=== PATIENT | female | born 1955 | race Caucasian/White ===

== ENCOUNTER 2016-03-26 01:34 | Inpatient (IN) ==
[2016-03-26] MEDS ORDERED: Pantoprazole 40 MG VIAL IVP STA (04:21)
[2016-03-26] MEDS ORDERED: Acetaminophen 325 MG TABLET PO PRN (04:21)
[2016-03-26] MEDS ORDERED: *HR* Morphine 2 MG/ML SYRINGE IVP PRN (04:21)
[2016-03-26] MEDS ORDERED: Naloxone 0.4 MG/ML INJ IVP PRN (04:21)
[2016-03-26] MEDS ORDERED: Ondansetron 4 MG/2 ML VIAL IVP PRN (04:21)
[2016-03-26] MEDS ORDERED: *HR* OxyCODONE Immed Rel 5 MG TABLET PO PRN (04:21)
[2016-03-26] MEDS ORDERED: *HR* Dextrose 50 % in Water (Syg) 50 ML SYRINGE IVP PRN ×2 (04:30→16:40)
[2016-03-26] MEDS ORDERED: Dextrose Gel 15 GM PO PRN ×4 (04:30→16:40)
[2016-03-26] MEDS ORDERED: methylPREDNISolone 125 MG/2 ML VIAL IVP STA (04:30)
[2016-03-26] MEDS ORDERED: D5% in Water 1,000 ML IV PRN ×2 (04:30→16:40)
[2016-03-26] MEDS ORDERED: Albuterol 2.5 MG/3 ML NEBULIZER IH PRN (04:30)
[2016-03-26] MEDS ORDERED: Benzonatate 100 MG CAPSULE PO PRN (04:35)
[2016-03-26] MEDS ORDERED: Nitroglycerin 0.4 MG TAB.SUBL SL PRN (04:37)
[2016-03-26] MEDS ORDERED: *HR* Metoprolol 5 MG/5 ML VIAL IVP PRN (04:37)
[2016-03-26] MEDS ORDERED: Azithromycin 250 MG TABLET PO SCH (04:45)
[2016-03-26 05:28] LABS: VBG HCO3 23.6 mEq/L (21-27); VBG PH 7.29 pH Units (7.32-7.42)
[2016-03-26 05:32] LABS: Basophils % 0.1 %; Immature Granulocytes % 0.5 % (0-4); Lymphocytes # 1.6 K/mcL (0.6-4.6); Lymphocytes % 13.1 %; Mean Corpuscular HGB Conc 31.4 g/dL (31.6-35.5); Mean Corpuscular Hemoglobin 26.6 pg (28.0-33.3); Mean Corpuscular Volume 84.7 fL (83.0-100.0); Mean Platelet Volume 9.8 fL (9.4-12.4); Monocytes # 0.7 K/mcL (0.0-1.3); Monocytes % 5.5 %; Neutrophils # 10.1 K/mcL (1.6-8.9); Platelet Count 403 K/mcL (140-400); Red Blood Count 4.13 M/mcL (3.82-4.97); Red Cell Distribution Width 15.9 % (11.5-14.5); Segmented Neutrophils % 80.8 %
[2016-03-26 05:39] LABS: Hemoglobin A1C 8.1 %
[2016-03-26 05:43] LABS: Albumin 3.1 g/dL (3.5-5.0); Albumin/Globulin Ratio 0.8 (1.1-2.2); Bilirubin,Total 0.3 mg/dL (0.2-1.2); Calcium 10.1 mg/dL (8.6-10.8); Globulin 4.1 g/dL (2.4-3.5); Magnesium 1.5 mg/dL (1.6-2.6); Phosphorous 2.8 mg/dL (2.3-4.7); Potassium 4.3 mEq/L (3.5-4.5); Total Protein 7.2 g/dL (6.0-8.3)
[2016-03-26] MEDS: Ipratropium/Albuterol Neb 3 ML IH SCH ×4 (05:47→23:08)
--- NOTE | 2016-03-26 05:47 | Internal Med History&Physical ---
<Ana Gordillo - Last Filed: 03/26/16 06:43> Date of Encounter: 03/26/16 Time of Encounter: 04:30 Assessment and Plan (1) Sepsis Current visit: Yes Status: Acute WBC 12.7, Left shift, Tachypnea, ESR 88 CXR with RUL opacity, no PTX or Pleural effusion, cardiac and mediastinal contours stable Multiorgan involvement, including cardiac demand ischemia (troponin 0.06, 0.09) and VALERY (Cr 3.97 up from 1.65 on 03/20/16) Blood cultures x 2, pending Sputum culture, pending Trend CBC, CMP, PT/INR, aPTT, Lactate Will treat PNA, follow heart and kidney function Qualifiers: Sepsis type: sepsis due to unspecified organism Qualified Code(s): A41.9 - Sepsis, unspecified organism (2) Pneumonia Current visit: No Status: Acute WBC 12.7, Left shift, Tachypnea, ESR 88 CXR with RUL opacity, no PTX or Pleural effusion, cardiac and mediastinal contours stable Levoquin 1g given in ED, will continue Levoquin 750mg IV q 48 h Start Ceftriaxone 1g q 24 h Prednisone po 40mg q 24 h Duonebs QIDR, Albuterol Q4PRN Blood culture, pending Sputum culture, pending Will follow CBC Recommend repeat CXR for resolution of disease process Qualifiers: Pneumonia type: due to unspecified organism Laterality: right Lung location: upper lobe of lung Qualified Code(s): J18.1 - Lobar pneumonia, unspecified organism (3) Demand ischemia Current visit: Yes Status: Acute EKG with anteriolateral wall ischemia, no ST segment elevation Repeat EKG in am Troponin 0.06, 0.09, trend troponin BNP 264, will trend -CXR without evidence of effusion Provide O2 support, reassess heart function Echo, pending Cardiology consult (4) VALERY (acute kidney injury) Current visit: Yes Status: Acute Cr 3.97 increased from 1.65 on 03/20/16 (5 days ago) Uric acid 6.8, will trend Trend renal function US Retroperitoneum, pending UA reflex culture to r/o infectious etiology, pending Microal/Cr r/o chronic kidney disease, pending Will hydrate IVF 50mL/hr and reassess (5) Diabetes mellitus type 2, uncontrolled Current visit: Yes Status: Acute Insulin protocol Microal/Cr, pending Discontinued Gabapentin due to low CrCl Qualifiers: Diabetes mellitus complication status: with neurologic complications Diabetes mellitus complication detail: with unspecified neuropathy Diabetes mellitus correction insulin use: with exterminator helper use Qualified Code(s): E11.40 - Type 2 diabetes mellitus with diabetic neuropathy, unspecified; E11.65 - Type 2 diabetes mellitus with hyperglycemia; Z79.4 - termination clerk (current) use of insulin (6) Coronary artery disease Current visit: Yes Status: Acute Crestor decreased to 10mg q day due to low CrCl Continue home medications Qualifiers: Coronary Disease-Associated Artery/Lesion type: bypass graft [place] vs. transplanted heart: [place] heart Associated angina: without angina Qualified Code(s): I25.810 - Atherosclerosis of coronary artery bypass graft(s) without angina pectoris (7) Hyperlipidemia Current visit: Yes Status: Acute Crestor decreased to 10mg q day due to low CrCl Discontinued fenofibrate due to low CrCl Qualifiers: Hyperlipidemia type: unspecified Qualified Code(s): E78.5 - Hyperlipidemia , unspecified (8) Hypertension Current visit: Yes Status: Acute Continue metoprolol Qualifiers: Hypertension type: essential hypertension Qualified Code(s): I10 - Essential (primary) hypertension (9) History of [place] (myocardial infarction) Current visit: Yes Status: Acute (10) Rheumatoid arthritis Current visit: Yes Status: Acute Qualifiers: Rheumatoid arthritis location: unspecified site Rheumatoid factor presence : unspecified presence Qualified Code(s): M06.9 - Rheumatoid arthritis, unspecified (11) Hypothyroid Current visit: Yes Status: Acute continue home medication Qualifiers: Hypothyroidism type: unspecified Qualified Code(s): E03.9 - Hypothyroidism , unspecified (12) DVT prophylaxis Current visit: Yes Status: Acute Lovenox 40u SubQ Internal Medicine - H&P: HPI Chief complaint: dyspnea Admitted From: Emergency Dept Plans for Post Hospital Care: Home History of present illness: Ms. Graham is a 60 year old female who presented to the hospital with acute onset dyspnea. Patient states that around 6 PM (03/25) she became very short of breath. Patient was resting that time. Patient states dyspnea continued to worsen. She began coughing. Admits hemoptysis, pain with inspiration, right sided non-radiating back pain. Admits to being frightened. Denies chest pain. Denies use of home O2. Denies headache, dizziness, fever, chills. Past Med Surg Social Fam HX - Past Medical History Medical history: coronary artery disease, diabetes, GERD, hypertension, myocardial infarction, RA, thyroid disease, TIA, other (Aortic stenosis, per patient) Psychiatric history: no psych history - Past Surgical History Surgical History: angioplasty/stent, coronary bypass (CABG), hysterectomy, thyroidectomy - Social History Smoking Status: Current every day smoker Smokeless Tobacco Status: No Alcohol use: none Drug use: marijuana - Family History Mother History Unknown: Yes Adopted: [place]: Remedios Montero Family Member Ethnicity: Non- Living Status: Age at : 40 Hx Family Cardiac Disorders: Yes ( of [place]) Hx Family Respiratory Disorders: No Hx Family Cancer: Yes (breast ca) Hx Family GI Disorders: No Hx Family Genitourinary Disorders: No Hx Family Endocrine Disorder: No Hx Family Musculoskeletal Disorders: No Hx Family Neuromuscular Disorders: No Hx Family Neurologic Disorders: No Hx Family HEENT Disorders: No Hx Family Autoimmune Disorders: No Hx Family Reproductive Disorders: No Hx Family Psychosocial Disorders: No Hx Family Medical Disorders: No Internal Medicine - H&P: Meds Amlodipine [Norvasc] 10 mg PO DAILY 06/10/15 [History] Clopidogrel [Plavix] 75 mg PO DAILY 06/10/15 [History] Cyclobenzaprine [Flexeril] 10 mg PO TID 06/10/15 [History] Gabapentin [Neurontin] 300 mg PO TID 06/10/15 [History] Insulin ASPART [NovoLOG] 21 unit SQ TIDWM 06/10/15 [History] Insulin Glargine [Lantus] 70 unit SQ HS 06/10/15 [History] Isosorbide DInitrate [Isosorbide Dinitrate] 30 mg PO DAILY 06/10/15 [History] Lisinopril [Zestril] 10 mg PO DAILY 06/10/15 [History] Metoprolol [Lopressor] 100 mg PO BID 06/10/15 [History] Rosuvastatin [Crestor] 40 mg PO DAILY 06/10/15 [History] TraMADol [Ultram] 50 mg PO TID 06/10/15 [History] Hydrochlorothiazide 25 mg PO DAILY 02/01/16 [History] Levothyroxine Sodium [Levoxyl] 125 mcg PO DAILY 02/01/16 [History] Metformin [Glucophage] 1,000 mg PO BID 02/01/16 [History] BuPROPion [Wellbutrin] 100 mg PO BID 03/20/16 [History] Fenofibrate 54 mg PO DAILY 03/20/16 [History] Meloxicam [Mobic] 7.5 mg PO DAILY #10 tablet 03/20/16 [Rx] Hydralazine HCl 100 mg PO BID 03/26/16 [History] Omeprazole [PriLOSEC] 20 mg PO DAILY 03/26/16 [History] PredniSONE [Deltasone] 20 mg PO DAILY 03/26/16 [History] Allergies Penicillins [PCN] Allergy (Verified 03/19/16 21:38) Hives All Systems PM: A 10-system review of systems was performed and is negative for pertinent findings except as documented above in the HPI. - Constitutional Constitutional: other (increased appetite (she states this is due to medication) ), no chills, no fever(s), no weight loss - Cardiovascular Cardiovascular ROS IM: dyspnea, dyspnea on exertion, other, no chest pain, no edema - Respiratory Respiratory: cough, dyspnea, hemoptysis, dyspnea on exertion, wheezing, pain on inspiration - Gastrointestinal Gastrointestinal: hematochezia (history of GI bleed requiring transfusion, not recent), melena (history of GI bleed requiring transfusion, not recent), no abdominal pain, no constipation, no diarrhea, no heartburn, no nausea, no vomiting - Constitutional Vitals: Temp Pulse Resp BP Pulse Ox 98.3 F 89 17 186/76 94 L 03/26/16 03:16 03/26/16 03:16 03/26/16 03:16 03/26/16 03:16 03/26/16 03:16 General appearance: Present: mild distress, A&O X 3, pleasant, obese - Head Head exam: Present: atraumatic, normal inspection, normocephalic - Eye Eye exam: Present: EOMI - Neck Neck exam general surgery: Present: full ROM, normal inspection - Respiratory Respiratory exam: Present: accessory muscle use, rhonchi, wheezes, tachypnea - Cardiovascular Cardiovascular exam: Present: +S1, +S2, tachycardia - GI/Abdominal GI/Abdominal exam: Present: normal bowel sounds, soft Internal Med - H&P Results - Labs CBC & Chem 7: 03/26/16 05:17 03/26/16 05:17 Labs: Short CBC 03/26/16 Range/Units 05:17 WBC 12.5 H (4.3-11.1) K/mcL Hgb 11.0 L (11.5-15.4) g/dL Hct 35.0 L (35.3-44.9) % Plt Count 403 H (140-400) K/mcL BMP 03/26/16 05:17 Sodium 136 Potassium 4.3 Chloride 105 Carbon Dioxide 19 BUN 83 H Creatinine 3.08 H Glucose 157 H Calcium 10.1 Liver Function 03/26/16 Range/Units 05:17 Total Bilirubin 0.3 (0.2-1.2) mg/dL AST 14 (5-34) Units/L ALT 14 (0-55) Units/L Alkaline Phosphatase 70 (38-126) Units/L Albumin 3.1 L (3.5-5.0) g/dL - ABG Interpretation ABG results: 03/26/16 05:17 VBG pH 7.29 L VBG pCO2 49 VBG pO2 58 H VBG HCO3 23.6 - Attending Attestation I examined this patient and my medical decision-making was reviewed with the FLIGHT CREW TIME CLERK/PA/Advanced Practice Nurse/Resident Physician. I agree with the documented findings, disposition and treatment plan as described except to the extent set forth below. <Delta Mansfield - Last Filed: 03/29/16 03:37> Date of Encounter: 03/26/16 Internal Medicine - H&P: HPI History of present illness: Ms. Graham is a 60 year old female The patient was visited and interviewed. I examined this patient. My medical decision-making was reviewed with the Resident Physician. I agree with the documented findings, disposition and treatment plan as described except to the extent set forth below. Cumulative laboratory and radiographic data was reviewed and considered and discussed. Pertinent ancillary medical records including ECW and PCI documentation, when available was reviewed and considered. Given the patient's presenting concerns, past medical history, clinical findings and symptoms, she is admitted at this time to undergo further evaluation and disposition. Orders were written as per the computerized physician money order clerk system.................... All Systems PM: A 10-system review of systems was performed and is negative for pertinent findings except as documented above in the HPI. - Constitutional Vitals: Temp Pulse Resp BP Pulse Ox 98.0 F 80 17 179/75 95 03/29/16 00:06 03/29/16 00:06 03/29/16 00:06 03/29/16 00:06 03/29/16 00:06 Internal Med - H&P Results - Labs CBC & Chem 7: 03/28/16 05:08 03/28/16 05:08 Labs: Short CBC 03/28/16 Range/Units 05:08 WBC 15.1 H (4.3-11.1) K/mcL Hgb 9.5 L (11.5-15.4) g/dL Hct 30.2 L (35.3-44.9) % Plt Count 377 (140-400) K/mcL Neutrophils # 11.2 H (1.6-8.9) K/mcL BMP 03/28/16 05:08 Sodium 138 Potassium 4.2 Chloride 106 Carbon Dioxide 21 BUN 48 H D Creatinine 1.29 H Glucose 225 H Calcium 9.9 - ABG Interpretation ABG results: 03/26/16 05:17 VBG pH 7.29 L VBG pCO2 49 VBG pO2 58 H VBG HCO3 23.6 - Impressions Vital Signs Temp Pulse Resp BP Pulse Ox 03/29/16 00:06 98.0 F 80 17 179/75 95 03/28/16 22:55 16 96 03/28/16 19:54 97.9 F 77 18 183/66 96 03/28/16 17:58 81 187/70 03/28/16 15:48 98.4 F 80 18 193/72 92 L 03/28/16 12:11 18 96 03/28/16 11:47 98.5 F 85 18 151/101 96 03/28/16 10:47 95 03/28/16 08:29 96 03/28/16 07:42 97.7 F 78 18 195/75 96 03/28/16 04:44 17 94 L 03/28/16 04:25 98.3 F 86 18 186/79 95 Intake and Output 03/28/16 03/28/16 03/29/16 15:59 23:59 07:59 Intake Total 0 / 0 Output Total 1800 / 1800 Balance -1800 / -1800 Intake: Oral 0 / 0 Output: Urine 1800 / 1800 Other: Blood Glucose* 331 363 Short CBC 03/28/16 Range/Units 05:08 WBC 15.1 H (4.3-11.1) K/mcL Hgb 9.5 L (11.5-15.4) g/dL Hct 30.2 L (35.3-44.9) % Plt Count 377 (140-400) K/mcL Neutrophils # 11.2 H (1.6-8.9) K/mcL BMP 03/28/16 Range/Units 05:08 Sodium 138 (136-145) mEq/L Potassium 4.2 (3.5-4.5) mEq/L Chloride 106 (98-109) mEq/L Carbon Dioxide 21 (19-29) mEq/L BUN 48 H D (7-20) mg/dL Creatinine 1.29 H (0.57-1.11) mg/dL Glucose 225 H (70-99) mg/dL Calcium 9.9 (8.6-10.8) mg/dL Abnormal lab results WBC 15.1 K/mcL (4.3-11.1) H 03/28/16 05:08 RBC 3.59 M/mcL (3.82-4.97) L 03/28/16 05:08 Hgb 9.5 g/dL (11.5-15.4) L 03/28/16 05:08 Hct 30.2 % (35.3-44.9) L 03/28/16 05:08 MCH 26.5 pg (28.0-33.3) L 03/28/16 05:08 MCHC 31.5 g/dL (31.6-35.5) L 03/28/16 05:08 RDW 15.7 % (11.5-14.5) H 03/28/16 05:08 Band Neutrophils % 6.0 % (0-4) H 03/27/16 04:00 Neutrophils # 11.2 K/mcL (1.6-8.9) H 03/28/16 05:08 Nucleated RBCs/100 WBC 0.1 /100 WBC (0) H 03/28/16 05:08 PT 12.7 Seconds (9.4-12.1) H 03/27/16 04:00 APTT 25.8 Seconds (26.0-36.0) L 03/27/16 04:00 VBG pH 7.29 pH Units (7.32-7.42) L 03/26/16 05:17 VBG pO2 58 mmHg (25-40) H 03/26/16 05:17 BUN 48 mg/dL (7-20) H D 03/28/16 05:08 Creatinine 1.29 mg/dL (0.57-1.11) H 03/28/16 05:08 Est GFR ( Amer) 51 (> 60) L 03/28/16 05:08 Est GFR (Non-Af Amer) 42 (> 60) L 03/28/16 05:08 BUN/Creatinine Ratio 37 (6-26) H 03/28/16 05:08 Glucose 225 mg/dL (70-99) H 03/28/16 05:08 POC Glucose 363 (58-89) H 03/28/16 19:59 Hemoglobin A1c 8.1 % (-5.6) H 03/26/16 05:17 Calculated Osmolality 306 (280-300) H 03/28/16 05:08 Magnesium 1.5 mg/dL (1.6-2.6) L 03/26/16 05:17 B-Natriuretic Peptide 652 pg/mL (0-100) H 03/27/16 04:00 Albumin 3.1 g/dL (3.5-5.0) L 03/26/16 05:17 Globulin 4.1 g/dL (2.4-3.5) H 03/26/16 05:17 Albumin/Globulin Ratio 0.8 (1.1-2.2) L 03/26/16 05:17 HDL Cholesterol 22 mg/dL (40-59) L 03/27/16 04:00 Urine Glucose (UA) >=1000 mg/dL (Normal) H 03/26/16 16:59 Laboratory Results WBC 15.1 K/mcL (4.3-11.1) H 03/28/16 05:08 RBC 3.59 M/mcL (3.82-4.97) L 03/28/16 05:08 Hgb 9.5 g/dL (11.5-15.4) L 03/28/16 05:08 Hct 30.2 % (35.3-44.9) L 03/28/16 05:08 MCV 84.1 fL (83.0-100.0) 03/28/16 05:08 MCH 26.5 pg (28.0-33.3) L 03/28/16 05:08 MCHC 31.5 g/dL (31.6-35.5) L 03/28/16 05:08 RDW 15.7 % (11.5-14.5) H 03/28/16 05:08 Plt Count 377 K/mcL (140-400) 03/28/16 05:08 MPV 9.5 fL (9.4-12.4) 03/28/16 05:08 Immature Gran % 0.5 % (0-4) 03/26/16 05:17 Seg Neutrophils % 74.0 % 03/28/16 05:08 Band Neutrophils % 6.0 % (0-4) H 03/27/16 04:00 Lymphocytes % 20.0 % 03/28/16 05:08 Monocytes % 6.0 % 03/28/16 05:08 Eosinophils % 0.0 % 03/26/16 05:17 Basophils % 0.1 % 03/26/16 05:17 Neutrophils # 11.2 K/mcL (1.6-8.9) H 03/28/16 05:08 Lymphocytes # 3.0 K/mcL (0.6-4.6) 03/28/16 05:08 Monocytes # 0.9 K/mcL (0.0-1.3) 03/28/16 05:08 Eosinophils # 0.0 K/mcL (0.0-0.6) 03/26/16 05:17 Basophils # 0.0 K/mcL (0.0-0.2) 03/26/16 05:17 Nucleated RBCs/100 WBC 0.1 /100 WBC (0) H 03/28/16 05:08 Platelet Estimate Normal (Normal) 03/28/16 05:08 PT 12.7 Seconds (9.4-12.1) H 03/27/16 04:00 INR 1.2 03/27/16 04:00 APTT 25.8 Seconds (26.0-36.0) L 03/27/16 04:00 VBG pH 7.29 pH Units (7.32-7.42) L 03/26/16 05:17 VBG pCO2 49 mmHg (41-51) 03/26/16 05:17 VBG pO2 58 mmHg (25-40) H 03/26/16 05:17 VBG HCO3 23.6 mEq/L (21-27) 03/26/16 05:17 Sodium 138 mEq/L (136-145) 03/28/16 05:08 Potassium 4.2 mEq/L (3.5-4.5) 03/28/16 05:08 Chloride 106 mEq/L (98-109) 03/28/16 05:08 Carbon Dioxide 21 mEq/L (19-29) 03/28/16 05:08 BUN 48 mg/dL (7-20) H D 03/28/16 05:08 Creatinine 1.29 mg/dL (0.57-1.11) H 03/28/16 05:08 Est GFR ( Amer) 51 (> 60) L 03/28/16 05:08 Est GFR (Non-Af Amer) 42 (> 60) L 03/28/16 05:08 BUN/Creatinine Ratio 37 (6-26) H 03/28/16 05:08 Glucose 225 mg/dL (70-99) H 03/28/16 05:08 POC Glucose 363 (58-89) H 03/28/16 19:59 Est Mean Plasma Glucose 186 mg/dl 03/26/16 05:17 Hemoglobin A1c 8.1 % (-5.6) H 03/26/16 05:17 Calculated Osmolality 306 (280-300) H 03/28/16 05:08 Lactic Acid 1.4 mmol/L (0.5-2.2) 03/26/16 06:05 Uric Acid 6.0 mg/dL (2.6-6.0) 03/27/16 04:00 Calcium 9.9 mg/dL (8.6-10.8) 03/28/16 05:08 Phosphorus 2.8 mg/dL (2.3-4.7) 03/26/16 05:17 Magnesium 1.5 mg/dL (1.6-2.6) L 03/26/16 05:17 Total Bilirubin 0.3 mg/dL (0.2-1.2) 03/26/16 05:17 AST 14 Units/L (5-34) 03/26/16 05:17 ALT 14 Units/L (0-55) 03/26/16 05:17 Alkaline Phosphatase 70 Units/L (38-126) 03/26/16 05:17 Troponin I 0.03 ng/mL (0-0.03) 03/26/16 17:36 B-Natriuretic Peptide 652 pg/mL (0-100) H 03/27/16 04:00 Serum Total Protein 7.2 g/dL (6.0-8.3) 03/26/16 05:17 Albumin 3.1 g/dL (3.5-5.0) L 03/26/16 05:17 Globulin 4.1 g/dL (2.4-3.5) H 03/26/16 05:17 Albumin/Globulin Ratio 0.8 (1.1-2.2) L 03/26/16 05:17 Triglycerides 133 mg/dL (< 150) 03/27/16 04:00 Cholesterol 99 mg/dL (< 200) 03/27/16 04:00 LDL Cholesterol, Calc 50 mg/dL (0-99) 03/27/16 04:00 VLDL Cholesterol, Calc 27 mg/dL (< 31) 03/27/16 04:00 HDL Cholesterol 22 mg/dL (40-59) L 03/27/16 04:00 Cholesterol/HDL Ratio 4.5 (0-4.9) 03/27/16 04:00 TSH 1.045 mcIU/mL (0.350-4.840) 03/26/16 05:17 Urine Color Yellow (Yellow) 03/26/16 16:59 Urine Clarity Clear (Clear) 03/26/16 16:59 Urine pH 5.5 pH Units (5.0-8.0) 03/26/16 16:59 Ur Specific [place] 1.021 (1.010-1.025) 03/26/16 16:59 Urine Protein Negative mg/dL (Neg-Trace) 03/26/16 16:59 Urine Glucose (UA) >=1000 mg/dL (Normal) H 03/26/16 16:59 Urine Ketones Negative mg/dL (Negative) 03/26/16 16:59 Urine Blood Negative (Negative) 03/26/16 16:59 Urine Nitrite Negative (Negative) 03/26/16 16:59 Urine Bilirubin Negative (Negative) 03/26/16 16:59 Urine Urobilinogen Normal mg/dL (Normal) 03/26/16 16:59 Ur Leukocyte Esterase Negative (Negative) 03/26/16 16:59 Urine Creatinine 46 mg/dL 03/26/16 16:59 Urine Microalbumin 11 mg/L 03/26/16 16:59 Microalb/Creat Ratio 24 (0-30) 03/26/16 16:59 Specimen Rejected Hemolyzed 03/26/16 05:17 Blood Type O NEGATIVE 03/26/16 05:17 Antibody Screen NEGATIVE 03/26/16 05:17 - Attending Attestation My signature below is to certify that this patient is under my care and that I, or the Resident Physician working with me, has had a [id number] encounter with this patient. Plan of care has been reviewed and discussed in detail with the patient. Questions addressed. Advance directive discussion briefly addressed. Patient does not declare any healthcare restrictions at this time. Outpatient medication schedules will be reviewed, confirmed and facilitated as appropriate. Reconciliation of home treatments including adjustments, substitutions and reintroduction into the treatment regimen will address necessary maintenance therapies for chronic pre-existing medical conditions. Hospital course will be dependent upon clinical findings, treatment response and potential consultative interventions. The patient is at risk for further acute clinical decline and mobility given her presenting to complaint, clinical findings and associated comorbidities. Condition is serious. Prognosis is cautiously optimistic. CODE STATUS is full
[2016-03-26 05:59] LABS: Platelet Estimate Normal (Normal)
[2016-03-26] MEDS ORDERED: *HR* Enoxaparin 40 MG/0.4 ML SYRINGE SQ SCH (06:00)
[2016-03-26 06:11] LABS: Thyroid Stimulating Hormone 1.045 mcIU/mL (0.350-4.840)
[2016-03-26] MEDS: 0.9 % Sodium Chloride 1,000 ML IVC SCH (06:15)
[2016-03-26] MEDS ORDERED: Magnesium Sulfate 1 GM in D5% in Water 100 ML IVPB ONE (06:16)
--- NOTE | 2016-03-26 08:17 | Internal Med Progress Note ---
Date of Encounter: 03/26/16 Time of Encounter: 08:14 - Assessment and plan (1) Severe sepsis Current Visit: Yes Status: Acute Assessment and plan: Patient is noted to have pneumonia with acute kidney injury and elevated serum troponin. Continue IV hydration along with IV antibiotics and monitor renal function closely. Supportive care. Serum lactate noted to be within normal limits. Monitor urine output closely. (2) VALERY (acute kidney injury) Current Visit: Yes Status: Acute Assessment and plan: Does not carry a known diagnosis of chronic kidney disease. Serum creatinine noted to be normal until earlier this month when it was 1.65. Noted to be trending down today. Continue IV hydration, avoid new nephrotoxic agents and dose antibiotics according to current GFR. (3) Coronary artery disease Current Visit: Yes Status: Chronic Assessment and plan: Status post coronary artery bypass graft. Continue aspirin, Plavix, beta dimple, MIKE inhibitor and statin. Outpatient cardiology follow-up recommended. Qualifiers: Coronary Disease-Associated Artery/Lesion type: bypass graft [place] vs. transplanted heart: [place] heart Associated angina: without angina Qualified Code(s): I25.810 - Atherosclerosis of coronary artery bypass graft(s) without angina pectoris (4) Diabetes mellitus type 2, uncontrolled Current Visit: Yes Status: Chronic Assessment and plan: Continue Accu-Chek blood glucose monitoring with sliding scale insulin. Hemoglobin A1c noted to be 8.1%. Diabetic diet. Qualifiers: Diabetes mellitus complication status: with neurologic complications Diabetes mellitus complication detail: with unspecified neuropathy Diabetes mellitus chcf insulin use: with chcf use Qualified Code(s): E11.40 - Type 2 diabetes mellitus with diabetic neuropathy, unspecified; E11.65 - Type 2 diabetes mellitus with hyperglycemia; Z79.4 - exterminator helper (current) use of insulin (5) Hyperlipidemia Current Visit: Yes Status: Chronic Qualifiers: Hyperlipidemia type: unspecified Qualified Code(s): E78.5 - Hyperlipidemia , unspecified (6) Hypertension Current Visit: Yes Status: Chronic Qualifiers: Hypertension type: essential hypertension Qualified Code(s): I10 - Essential (primary) hypertension (7) Hypothyroid Current Visit: Yes Status: Chronic Assessment and plan: Resume levothyroxine. Qualifiers: Hypothyroidism type: acquired Qualified Code(s): E03.9 - Hypothyroidism, unspecified (8) Rheumatoid arthritis Current Visit: Yes Status: Chronic Qualifiers: Rheumatoid arthritis location: unspecified site Rheumatoid factor presence : unspecified presence Qualified Code(s): M06.9 - Rheumatoid arthritis, unspecified (9) Elevated troponin Current Visit: Yes Status: Acute Assessment and plan: Likely related to underlying severe sepsis from pneumonia along with acute renal failure. Cardiology consult appreciated, recommend no further inpatient cardiac workup. Serum troponin noted to be trending down now. Echocardiogram shows preserved EF with no significant valvular or wall motion abnormalities. (10) Pneumonia Current Visit: Yes Status: Acute Assessment and plan: Improving clinically. Continue IV antibiotics, IV hydration, when necessary supplemental oxygen. Continues to require nasal cannula oxygen. Leukocytosis stable at around 12.5. Qualifiers: Pneumonia type: due to unspecified organism Laterality: right Lung location: upper lobe of lung Qualified Code(s): J18.1 - Lobar pneumonia, unspecified organism - Subjective Interval history: Continues to have sharp pleuritic chest pain on the right. Noted to be slightly wheezing but overall improving shortness of breath. Requiring supplemental oxygen. No palpitations, fever, chills. - Constitutional Vitals: Temp Pulse Resp BP Pulse Ox 98.1 F 80 18 161/68 94 L 03/26/16 07:39 03/26/16 07:39 03/26/16 07:39 03/26/16 07:39 03/26/16 07:39 General appearance: Present: A&O X 3, answers questions appropriately - Head Head exam: Present: atraumatic, normocephalic - Neck Neck exam general surgery: Present: supple, trachea midline. Absent: lymphadenopathy - Respiratory Respiratory exam: Present: rhonchi (Bilateral coarse rhonchorous breath sounds) , wheezes. Absent: accessory muscle use, rales - Cardiovascular Cardiovascular exam: Present: RRR, +S1, +S2. Absent: diastolic murmur, gallop, rubs, systolic murmur - GI/Abdominal GI/Abdominal exam: Present: normal bowel sounds, soft, no peritoneal signs. Absent: distended, tenderness - Extremities Exam Extremities exam: Present: full ROM, warm, radial pulses palpable and symetrical. Absent: calf tenderness, cyanotic, pedal edema - Neurological Exam Neurological exam: Present: CN II-XII intact, oriented X3, no focal deficits. Absent: pronater drift, facial droop, speech deficit - Skin Skin exam: Present: dry, intact Internal Medicine: Result - Labs CBC & Chem 7: 03/26/16 05:17 03/26/16 05:17 Labs: Short CBC 03/26/16 Range/Units 05:17 WBC 12.5 H (4.3-11.1) K/mcL Hgb 11.0 L (11.5-15.4) g/dL Hct 35.0 L (35.3-44.9) % Plt Count 403 H (140-400) K/mcL Neutrophils # 10.1 H (1.6-8.9) K/mcL BMP 03/26/16 05:17 Sodium 136 Potassium 4.3 Chloride 105 Carbon Dioxide 19 BUN 83 H Creatinine 3.08 H Glucose 157 H Calcium 10.1 Cardiac Enzymes 03/26/16 Range/Units 05:17 Troponin I 0.09 H* (0-0.03) ng/mL Liver Function 03/26/16 Range/Units 05:17 Total Bilirubin 0.3 (0.2-1.2) mg/dL AST 14 (5-34) Units/L ALT 14 (0-55) Units/L Alkaline Phosphatase 70 (38-126) Units/L Albumin 3.1 L (3.5-5.0) g/dL Consult Discharge Plan - Plan Referrals: Lindsay Mcclain, MARK [Primary Care Provider] -
[2016-03-26] MEDS: Nicotine 21 MG PATCH.TD24 TD SCH (08:24)
[2016-03-26] MEDS: Metoprolol 100 MG TABLET PO SCH ×2 (08:25→21:32)
[2016-03-26] MEDS: predniSONE 20 MG TABLET PO SCH (08:26)
[2016-03-26] MEDS: Aspirin 81 MG TAB.CHEW PO SCH (08:26)
[2016-03-26] MEDS: traMADol 50 MG TABLET PO SCH ×2 (08:27→21:32)
--- NOTE | 2016-03-26 08:34 | Cardiology Consult Note ---
Date of Encounter: 03/26/16 Time of Encounter: 07:10 Assessment and Plan (1) Elevated troponin Current Visit: Yes Status: Acute Mild, adynamic troponin elevation in the setting of VALERY, PNA (acute right upper lobe), and possible sepsis. No ECG changes compared to previous, patient describes atypical, pleuritic chest pain. Recommend conservative medical management in the setting of VALERY. Continue asa, statin, and betablocker. Echocardiogram pending. Outpatient follow-up with [facility], (2) VALERY (acute kidney injury) Current Visit: Yes Status: Acute VALERY--Cr 3.97 increased from 1.65 on 03/20/16 SCr improved this AM with IV hydration. Denies use of NSAIDs. Recommend stopping ACEi; consider resuming at discharge if SCr returns to baseline. Recommend Nephrology consultation. (3) Coronary artery disease Current Visit: Yes Status: Acute Hx of CAD s/p CABG No ECG changes noted. Continue asa, statin, plavix, betablocker, and nitrates. Patient is agreeable to re-establish with Cardiology as outpatient. Qualifiers: Coronary Disease-Associated Artery/Lesion type: bypass graft [place] vs. transplanted heart: [place] heart Associated angina: without angina Qualified Code(s): I25.810 - Atherosclerosis of coronary artery bypass graft(s) without angina pectoris (4) Hypertension Current Visit: Yes Status: Chronic Poorly controlled as outpatient, patient reports SBP >250. Continue betablocker and norvasc for now. ACEi held in light of VALERY. May need addition of additional agent, defer mgmt to primary service. Qualifiers: Hypertension type: essential hypertension Qualified Code(s): I10 - Essential (primary) hypertension (5) Tobacco abuse Current Visit: Yes Status: Chronic 2-3 ppd x50+ years, patient states started when she was 8 years old. Encouraged cessation, has plans to quit. Discussion w patient/family: The assessment and plan as outlined above was discussed with the patient and/or family members who expressed understanding and agreement. All questions were answered. Thank you for involving us in the care of your patient. Please call with any questions. The patient will be discussed and reviewed with Dr. Weeks; changes to be made accordingly. History of Present Illness Consult date: 03/26/16 Requesting physician: Delta Mansfield Consult reason: Elevated troponin Chief complaint: Stabbing back pain History of present illness: Ms. Graham is a 60 year old female with PMH significant for CAD s/p 3vCABG, heavy tobacco use, HTN, HLD, DMII who presents to the ED with 1-day history of stabbing back pain. Reports pain is worsened with cough or deep breathing, nothing seems to improve pain. Associated symptoms include dyspnea with exertion , fatigue, and orthopnea. Denies dizziness, fever/flu like symptoms, chest discomfort/anginal equivalent, leg edema, or syncope. She initially presented to [facility]--then subsequently transferred to [facility] for further treatment. She was noted to have an VALERY and concern for PNA upon presentation. Upon exam this morning she reports she is feeling much better. Unfortunately, she has not followed up with Cardiology as outpatient. Prior CV testing: TTE 11/05/13: EF 70-75%, moderate cLVH, moderate LVDD, mild MR LHC 05/09/12: s/p 3 of 3 patent bypass grafts, severely calcified aortic arch. Past Med Surg Social Fam HX - Past Medical History Medical history: COPD, coronary artery disease, diabetes, GERD, hyperlipidemia, hypertension, myocardial infarction, RA, thyroid disease, TIA Psychiatric history: no psych history - Past Surgical History Surgical History: angioplasty/stent, coronary bypass (CABG), hysterectomy, thyroidectomy - Social History Smoking Status: Current every day smoker Packs per day: 2-3 ppd; recently down to 0.5 x50+years. Smokeless Tobacco Status: No Alcohol use: none Drug use: marijuana - Family History Mother History Unknown: Yes Adopted: [place]: Remedios Montero Family Member Ethnicity: Non- Living Status: Age at : 40 Hx Family Cardiac Disorders: Yes ( of [place]) Hx Family Respiratory Disorders: No Hx Family Cancer: Yes (breast ca) Hx Family GI Disorders: No Hx Family Genitourinary Disorders: No Hx Family Endocrine Disorder: No Hx Family Musculoskeletal Disorders: No Hx Family Neuromuscular Disorders: No Hx Family Neurologic Disorders: No Hx Family HEENT Disorders: No Hx Family Autoimmune Disorders: No Hx Family Reproductive Disorders: No Hx Family Psychosocial Disorders: No Hx Family Medical Disorders: No Medications and Allergies Amlodipine [Norvasc] 10 mg PO DAILY 06/10/15 [History] Clopidogrel [Plavix] 75 mg PO DAILY 06/10/15 [History] Cyclobenzaprine [Flexeril] 10 mg PO TID 06/10/15 [History] Gabapentin [Neurontin] 300 mg PO TID 06/10/15 [History] Insulin ASPART [NovoLOG] 0 unit SQ TIDWM 06/10/15 [History] Insulin Glargine [Lantus] 70 unit SQ HS 06/10/15 [History] Isosorbide DInitrate [Isosorbide Dinitrate] 30 mg PO DAILY 06/10/15 [History] Lisinopril [Zestril] 10 mg PO DAILY 06/10/15 [History] Metoprolol [Lopressor] 100 mg PO BID 06/10/15 [History] Rosuvastatin [Crestor] 40 mg PO DAILY 06/10/15 [History] TraMADol [Ultram] 50 mg PO TID 06/10/15 [History] Hydrochlorothiazide 12.5 mg PO DAILY 02/01/16 [History] Levothyroxine Sodium [Levoxyl] 125 mcg PO DAILY 02/01/16 [History] Metformin [Glucophage] 1,000 mg PO BID 02/01/16 [History] BuPROPion [Wellbutrin] 75 mg PO DAILY 03/20/16 [History] Fenofibrate 54 mg PO DAILY 03/20/16 [History] Meloxicam [Mobic] 7.5 mg PO DAILY #10 tablet 03/20/16 [Rx] PredniSONE [Deltasone] 40 mg PO DAILY 03/26/16 [History] Allergies Penicillins [PCN] Allergy (Verified 03/19/16 21:38) Hives All Systems Review: A 10-system review of systems was performed and is negative for pertinent findings except as documented above in the HPI. - Cardiovascular Cardiovascular: as per HPI Physical Examination Vital Signs, Last 4 Hours Temp Pulse Resp BP Pulse Ox 03/26/16 07:39 98.1 F 80 18 161/68 94 L 03/26/16 05:50 16 96 General: Conversant, No Apparent Distress HEENT: Atraumatic, Normocephaly Cardiac: Reg Rate and Rhythm, Normal S1 and S2 Lungs: Other (Diminished throughout) Neuro: Alert and responsive Abdomen: Soft Skin: No rashes noted on visualized skin Musculoskeletal: No Chest Wall Tenderness Extremities: Normal Pulses, Other (trace BLE edema.) Results 03/26/16 05:17 03/26/16 05:17 Lab Results 03/26/16 03/26/16 03/26/16 05:17 05:17 05:17 WBC 12.5 H Hgb 11.0 L Hct 35.0 L Plt Count 403 H Sodium 136 Potassium 4.3 Chloride 105 Carbon Dioxide 19 BUN 83 H Creatinine 3.08 H Glucose 157 H Calcium 10.1 Magnesium 1.5 L Total Bilirubin 0.3 AST 14 ALT 14 Alkaline Phosphatase 70 Troponin I 0.09 H* TSH 1.045 Active Medications Acetaminophen (Tylenol) 650 mg PO Q6HR PRN PRN Reason: Mild Pain (1-3) Stop: 09/25/16 04:22 Albuterol Sulfate (Proventil Neb) 2.5 mg IH Q2H PRN PRN Reason: Shortness Of Breath/Wheezing Stop: 09/25/16 04:31 Albuterol/Ipratropium (Duoneb) 3 ml IH QIDR [facility] Stop: 09/25/16 05:01 Last Admin: 03/26/16 05:47 Dose: 3 ml Amlodipine Besylate (Norvasc) 10 mg PO DAILY [facility] PRN Reason: Protocol Stop: 09/25/16 09:01 Last Admin: 03/26/16 08:25 Dose: 10 mg Aspirin (Aspirin) 81 mg PO DAILY [facility] Stop: 09/25/16 09:01 Last Admin: 03/26/16 08:26 Dose: 81 mg Benzonatate (Tessalon) 200 mg PO TID PRN PRN Reason: Cough Stop: 09/25/16 04:36 Bupropion HCl (Wellbutrin) 75 mg PO DAILY [facility] Stop: 09/25/16 09:01 Clopidogrel Bisulfate (Plavix) 75 mg PO DAILY [facility] Stop: 09/25/16 09:01 Last Admin: 03/26/16 08:26 Dose: 75 mg Cyclobenzaprine HCl (Flexeril) 10 mg PO TID [facility] Stop: 09/25/16 09:01 Last Admin: 03/26/16 08:26 Dose: 10 mg Dextrose/Water (Dextrose 50% (Syg)) 25 ml IVP AD PRN PRN Reason: Hypoglycemia Stop: 09/25/16 04:31 Docusate Sodium (Colace) 100 mg PO BID [facility] Stop: 09/25/16 09:01 Last Admin: 03/26/16 08:25 Dose: 100 mg Enoxaparin Sodium (Lovenox) 40 mg SQ 0600 [facility] PRN Reason: Protocol Stop: 09/25/16 06:01 Last Admin: 03/26/16 06:15 Dose: 40 mg Glucagon (Glucagen) 1 mg IM ONCE PRN PRN Reason: Hypoglycemia Stop: 09/25/16 04:31 Glucose (Gluctose) 15 gm PO ONCE PRN PRN Reason: Hypoglycemia Stop: 09/25/16 04:31 Glucose (Gluctose) 30 gm PO ONCE PRN PRN Reason: Hypoglycemia Stop: 09/25/16 04:31 Guaifenesin (Mucinex) 600 mg PO BID [facility] Stop: 09/25/16 09:01 Last Admin: 03/26/16 08:26 Dose: 600 mg Sodium Chloride (0.9 % Sodium Chloride) 1,000 mls @ 50 mls/hr IVC .Q20H [facility] Stop: 09/25/16 04:31 Last Admin: 03/26/16 06:15 Dose: 50 mls/hr Dextrose (Dextrose 5%) 1,000 mls @ 100 mls/hr IV CONT PRN PRN Reason: HYPOGLYCEMIA Stop: 09/25/16 04:31 Levofloxacin/Dextrose (Levaquin 750mg/150 Ml) 750 mg in 150 mls @ 100 mls/hr IVPB Q48H [facility] PRN Reason: Protocol Stop: 09/25/16 09:01 Insulin Detemir (Levemir) 12 unit 0.15 unit/kg (12 unit) SQ HS [facility] Stop: 09/25/16 21:01 Insulin Human Lispro (Humalog) 0 units SQ TIDAC [facility] PRN Reason: Protocol Stop: 09/25/16 07:31 Insulin Human Lispro (Humalog) 0 units SQ HS [facility] PRN Reason: Protocol Stop: 09/25/16 21:01 Isosorbide Dinitrate (Isordil) 30 mg PO DAILY [facility] Stop: 09/25/16 09:01 Last Admin: 03/26/16 08:25 Dose: 30 mg Levothyroxine Sodium (Synthroid) 125 mcg PO DAILY [facility] Stop: 09/25/16 09:01 Last Admin: 03/26/16 08:26 Dose: 125 mcg Lisinopril (Zestril) 10 mg PO DAILY [facility] PRN Reason: Protocol Stop: 09/25/16 09:01 Last Admin: 03/26/16 08:26 Dose: 10 mg Metoprolol Tartrate (Lopressor) 100 mg PO BID [facility] Stop: 09/25/16 09:01 Last Admin: 03/26/16 08:25 Dose: 100 mg Metoprolol Tartrate (Lopressor) 5 mg IVP Q6HR PRN PRN Reason: SEE COMMENTS Stop: 09/25/16 04:38 Morphine Sulfate (Morphine Sulfate) 2 mg IVP Q4HR PRN PRN Reason: Severe Pain (7-10) Stop: 09/25/16 04:22 Naloxone HCl (Narcan) 0.4 mg IVP Q2MIN PRN PRN Reason: Opioid Reversal Stop: 09/25/16 04:22 Nicotine (Nicoderm) 21 mg TD DAILY [facility] Stop: 09/25/16 09:01 Last Admin: 03/26/16 08:24 Dose: Not Given Nitroglycerin (Nitroglycerin) 0.4 mg SL Q5MIN PRN PRN Reason: Chest Pain Stop: 09/25/16 04:38 Omeprazole (Prilosec) 40 mg PO DAILY@0630 [facility] PRN Reason: Protocol Stop: 09/25/16 06:31 Last Admin: 03/26/16 06:15 Dose: 40 mg Ondansetron HCl (Zofran) 4 mg IVP Q6HR PRN PRN Reason: Nausea And Vomiting Stop: 09/25/16 04:22 Oxycodone HCl (Roxicodone) 10 mg PO Q6HR PRN PRN Reason: Moderate Pain (4-6) Stop: 09/25/16 04:22 Prednisone (Prednisone) 40 mg PO DAILY [facility] Stop: 09/25/16 09:01 Last Admin: 03/26/16 08:26 Dose: 40 mg Rosuvastatin Calcium (Crestor) 10 mg PO HS [facility] Stop: 09/25/16 21:01 Tramadol HCl (Ultram) 50 mg PO Q12H [facility] Stop: 09/25/16 09:01 Last Admin: 03/26/16 08:27 Dose: 50 mg - Imaging and Cardiology Chest Xray: report reviewed Echo: report reviewed Cardiac cath: report reviewed Other Results: Telemetry: avg HR=83 SR. No significant pause/arrhythmia noted. - EKG Interpretation EKG results cardiology: personally reviewed Consult Discharge Plan - Plan Referrals: Lindsay Mcclain CNP [Primary Care Provider] -
[2016-03-26] MEDS: Insulin LISPRO 300 UNITS/3 ML VIAL SQ SCH ×4 (08:38→21:28)
[2016-03-26] MEDS ORDERED: Gabapentin 300 MG CAPSULE PO SCH (09:00)
[2016-03-26] MEDS ORDERED: amLODIPine 5 MG TABLET PO SCH (09:00)
[2016-03-26] MEDS ORDERED: FENOFIBRATE 54 MG PO SCH (09:00)
[2016-03-26] MEDS ORDERED: Levofloxacin 750 MG/150 ML 750 MG/150 ML BAG IVPB SCH (09:00)
--- NOTE | 2016-03-26 12:39 | ECHO - Doppler Report ---
Echocardiogram Name: Norah Graham Date of Study: 03/26/2016 Date: 1955 Ht: 67.0 in Medical Record#: [id number] Age: 60 Wt: 195.0 lb Gender: Female BSA: 2 Order #: [id number] Location: [facility] Room #: 2a11 Reading Physician: Mc Weeks DO, KENNETH, RADU KELLER Feed In Worker: Kevan Stevens RDCS Ordering Physician: Delta Mansfield MD Primary Physician: None Indications: Chest pain Impressions: LVEF 60-65%. Normal LV chamber size and function. Mild asymmetric hypertrophy of the basal septum. No LVOT obstruction. Pseudonormal left ventricular diastolic dysfunction. Atypical septal motion consistent with post-operative status. Normal right ventricular structure and function. Mild mitral regurgitation. No evidence of pulmonary hypertension. There is a small pericardial effusion present. There is no echocardiographic evidence of tamponade. Left Ventricular Wall Motion: Rest Echo Findings All wall segments showed normal motion. Findings: Study Quality * Technically adequate exam. ECG Findings * Normal sinus rhythm. Left Ventricle * LVEF 60-65%. * Normal LV chamber size and function. * Mild asymmetric hypertrophy of the basal septum. No LVOT obstruction. * Pseudonormal left ventricular diastolic dysfunction. * Atypical septal motion consistent with post-operative status. Right Ventricle * Normal right ventricular structure and function. Left Atrium * Moderately dilated left atrium. Right Atrium * Normal right atrial size. Interatrial Septum * Interatrial septum not well evaluated. Aortic Valve * Trileaflet aortic valve with normal function. * No aortic regurgitation. * No aortic stenosis. Mitral Valve * Mild mitral annular calcification. * Mildly thickened mitral valve leaflets. * Mild mitral regurgitation. * No mitral stenosis. Tricuspid Valve * Normal tricuspid valve structure and function. * Trace tricuspid regurgitation. * No evidence of pulmonary hypertension. Pulmonic Valve * Normal pulmonic valve structure and function. * No pulmonic regurgitation. Aorta * Normally sized aortic root. Pericardium * There is a small pericardial effusion present. * There is no echocardiographic evidence of tamponade. IVC * Normal IVC dimensions and inspiratory collapse. Pulmonary Artery * Normal visualized portions of the main pulmonary artery. History Hypertension Diabetes Hypercholesteremia Family History of CAD History of CAD/PTCA Myocardial Infarction Coronary Artery Bypass Graft 11/05/13 a Previous Echo was performed. Measurements: BP: 186/ 76 2D Normal Values RVIDd: 3.10 cm <2.7 cm IVSd: 1.40 cm 0.6 - 1.0 cm LVIDd: 3.80 cm 3.7 - 5.6 cm LVPWd: .90 cm 0.6 - 1.1 cm LVIDs: 2.60 cm 1.5 - 3.6 cm AO: 2.50 cm < 4.0 cm LA: 3.90 cm 2.0 - 4.0cm %FS: 31.60 cm >25 % LA volume: 72 Mitral Valve Peak E:1.32 m/sec Peak A:.82 m/sec E/A Ratio:1.6 Peak E' Lat Jerome:7.31 cm/s Peak E' Med Jerome:6.14 cm/s E/E' Lat Ratio:18.1 E/E' Med Ratio:21.5 Tricuspid Valve TV Regurg Peak Grad: 27.00mmHg TV Regurg Peak Jerome: 2.59m/sec Updated by Mc Weeks DO, FACNicolas, KRISHNA, RADU on 03/26/2016 12:32:50 PM Wall Motion [place]: 1=Normal, 2=Hypokinesis, 3=Akinesis, 4=Dyskinesis, 5=Aneurysmal, 6=Hyperkinetic, X=Not Visualized (Blank)=Missing
--- NOTE | 2016-03-26 12:54 | Event Note ---
Date of Encounter: 03/26/16 Time of Encounter: 12:53 Echocardiogram reviewed and demonstrates normal LV function. Minimal troponin elevation appears noncardiac - related to PNA, VALERY. Presentation not consistent with ACS. No further inpatient cardiac testing appears necessary at this time. Cardiology signing off. Call with questions.
[2016-03-26 17:05] LABS: Bilirubin,Urine Negative (Negative); Blood,Urine Negative (Negative); Clarity,Urine Clear (Clear); Color,Urine Yellow (Yellow); Glucose,Urine (UA) >=1000 mg/dL (Normal); Ketones,Urine Negative (Negative); Leukocyte Esterase,Urine Negative (Negative); Nitrite,Urine Negative (Negative); PH,Urine 5.5 pH Units (5.0-8.0); Protein,Urine Negative (Neg-Trace); Specific Gravity,Urine 1.021 (1.010-1.025); Urobilinogen,Urine Normal (Normal)
[2016-03-26 17:13] LABS: Creatinine,Urine 46 mg/dL; Microalbum/Creatinine Ratio,Ur 24 (0-30); Microalbumin,Urine 11 mg/L
[2016-03-26] MEDS ORDERED: Insulin LISPRO 300 UNITS/3 ML VIAL SQ ONE (18:28)
[2016-03-26] MEDS: *HR* Heparin 5,000 UNIT/ML VIAL SQ SCH (18:46)
--- NOTE | 2016-03-26 20:09 | Electrocardiograph Report ---
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
[2016-03-26] MEDS ORDERED: Insulin LISPRO 300 UNITS/3 ML VIAL SQ SCH (21:00)
[2016-03-26] MEDS ORDERED: Insulin DETEMIR 100 UNIT/ML X5UNITS SQ SCH (21:00)
[2016-03-26] MEDS: Insulin DETEMIR 100 UNIT/ML X5UNITS SQ SCH (21:31)
[2016-03-27] MEDS: 0.9 % Sodium Chloride 1,000 ML IVC SCH (03:05)
[2016-03-27 04:16] LABS: INR 1.2; Prothrombin Time 12.7 Seconds (9.4-12.1)
[2016-03-27 04:18] LABS: Activated Partial Thrombo Time 25.8 Seconds (26.0-36.0)
[2016-03-27 04:30] LABS: Calcium 10.1 mg/dL (8.6-10.8); Chol/HDL Ratio 4.5 (0-4.9); Potassium 4.3 mEq/L (3.5-4.5)
[2016-03-27] MEDS: Ipratropium/Albuterol Neb 3 ML IH SCH ×4 (05:34→22:32)
[2016-03-27 07:16] LABS: Hematocrit 29.1 % (35.3-44.9); Mean Corpuscular HGB Conc 31.6 g/dL (31.6-35.5); Mean Corpuscular Hemoglobin 26.7 pg (28.0-33.3); Mean Corpuscular Volume 84.3 fL (83.0-100.0); Mean Platelet Volume 10.1 fL (9.4-12.4); Platelet Count 355 K/mcL (140-400); Red Blood Count 3.45 M/mcL (3.82-4.97); Red Cell Distribution Width 15.7 % (11.5-14.5)
[2016-03-27 07:41] LABS: Hemoglobin 9.2 g/dL (11.5-15.4)
--- NOTE | 2016-03-27 07:53 | Internal Med Progress Note ---
Date of Encounter: 03/27/16 Time of Encounter: 07:51 - Assessment and plan (1) Pneumonia Current Visit: Yes Status: Acute Assessment and plan: Improving clinically. Continue IV antibiotics, IV hydration, when necessary supplemental oxygen. Continues to require nasal cannula oxygen. Needs home O2 evaluation prior to discharge; Leukocytosis stable at around 12.5. Qualifiers: Pneumonia type: due to unspecified organism Laterality: right Lung location: upper lobe of lung Qualified Code(s): J18.1 - Lobar pneumonia, unspecified organism (2) Severe sepsis Current Visit: Yes Status: Acute Assessment and plan: Patient is noted to have pneumonia with acute kidney injury and elevated serum troponin. Improving. Continue IV hydration along with IV antibiotics and monitor renal function closely. Supportive care. Serum lactate noted to be within normal limits. Monitor urine output closely. (3) Elevated troponin Current Visit: Yes Status: Resolved Assessment and plan: Serum Troponin normalized; Cardiology signed off with no further recommendations ; (4) VALERY (acute kidney injury) Current Visit: Yes Status: Acute Assessment and plan: Does not carry a known diagnosis of chronic kidney disease. Serum creatinine noted to be normal until earlier this month when it was 1.65. Likely VALERY due to underlying sepsis currently; Noted to be much improved today, down to 1.7; Continue IV hydration, avoid new nephrotoxic agents and dose antibiotics according to current GFR. (5) Coronary artery disease Current Visit: Yes Status: Chronic Assessment and plan: Status post coronary artery bypass graft. Continue aspirin, Plavix, beta dimple, MIKE inhibitor and statin. Outpatient cardiology follow-up recommended. Qualifiers: Coronary Disease-Associated Artery/Lesion type: bypass graft [place] vs. transplanted heart: [place] heart Associated angina: without angina Qualified Code(s): I25.810 - Atherosclerosis of coronary artery bypass graft(s) without angina pectoris (6) Diabetes mellitus type 2, uncontrolled Current Visit: Yes Status: Chronic Assessment and plan: Patient noted to have uncontrolled blood sugars yesterday; steroid-induced along with orange juice yesterday evening; increased Levemir to twice daily and increase SSI; FBS today is better controlled; Continue Accu-Chek blood glucose monitoring with sliding scale insulin. Hemoglobin A1c noted to be 8.1%. Diabetic diet. 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 use Qualified Code(s): E11.40 - Type 2 diabetes mellitus with diabetic neuropathy, unspecified; E11.65 - Type 2 diabetes mellitus with hyperglycemia; Z79.4 - USP (current) use of insulin (7) Hyperlipidemia Current Visit: Yes Status: Chronic Qualifiers: Hyperlipidemia type: unspecified Qualified Code(s): E78.5 - Hyperlipidemia , unspecified (8) Hypertension Current Visit: Yes Status: Chronic Assessment and plan: noted to have poorly controlled BP; will start Hydralazine and continue Metoprolol, Lisinopril; hold Norvasc due to pedal edema; monitor closely; Qualifiers: Hypertension type: essential hypertension Qualified Code(s): I10 - Essential (primary) hypertension (9) Hypothyroid Current Visit: Yes Status: Chronic Qualifiers: Hypothyroidism type: acquired Qualified Code(s): E03.9 - Hypothyroidism, unspecified (10) Rheumatoid arthritis Current Visit: Yes Status: Chronic Qualifiers: Rheumatoid arthritis location: unspecified site Rheumatoid factor presence : unspecified presence Qualified Code(s): M06.9 - Rheumatoid arthritis, unspecified - Subjective Interval history: Reports right upper right chest pain, slowly improving. No cough, fever, shortness of breath. Motivated to quit smoking. No new complaints. - Constitutional Vitals: Temp Pulse Resp BP Pulse Ox 97.5 F L 71 17 163/50 96 03/27/16 07:35 03/27/16 07:35 03/27/16 07:35 03/27/16 07:35 03/27/16 07:35 General appearance: Present: A&O X 3, answers questions appropriately - Respiratory Respiratory exam: Present: rales (coarse breath sounds B/L, right basal crepts) . Absent: accessory muscle use, rhonchi, wheezes - Cardiovascular Cardiovascular exam: Present: RRR, +S1, +S2. Absent: diastolic murmur, gallop, rubs, systolic murmur - GI/Abdominal GI/Abdominal exam: Present: normal bowel sounds, soft, no peritoneal signs. Absent: distended, tenderness - Extremities Exam Extremities exam: Present: full ROM, pedal edema (1+ tense pedal edema B/L ankles and lower legs), warm, radial pulses palpable and symetrical. Absent: calf tenderness, cyanotic - Neurological Exam Neurological exam: Present: CN II-XII intact, oriented X3, no focal deficits. Absent: pronater drift, facial droop, speech deficit Internal Medicine: Result - Labs CBC & Chem 7: 03/27/16 04:00 03/27/16 04:00 Labs: Short CBC 03/27/16 Range/Units 04:00 WBC 14.9 H (4.3-11.1) K/mcL Hgb 9.2 L D (11.5-15.4) g/dL Hct 29.1 L (35.3-44.9) % Plt Count 355 (140-400) K/mcL BMP 03/27/16 04:00 Sodium 138 Potassium 4.3 Chloride 107 Carbon Dioxide 21 BUN 66 H Creatinine 1.70 H Glucose 149 H Calcium 10.1 Cardiac Enzymes 03/26/16 03/26/16 Range/Units 11:47 17:36 Troponin I 0.06 H* 0.03 (0-0.03) ng/mL Urine 03/26/16 Range/Units 16:59 Urine Color Yellow (Yellow) Urine Clarity Clear (Clear) Urine pH 5.5 (5.0-8.0) pH Units Ur Specific [place]or 1.021 (1.010-1.025) Urine Protein Negative (Neg-Trace) mg/dL Urine Glucose (UA) >=1000 H (Normal) mg/dL - ABG Interpretation ABG results: PT/INR, D-dimer PT 12.7 Seconds (9.4-12.1) H 03/27/16 04:00 - VTE Documentation of Mechanical Device: Intermittent pneumatic compression device Consult Discharge Plan - Plan Referrals: Lindsay Mcclain, MARK [Primary Care Provider] -
[2016-03-27 07:57] LABS: Lymphocytes # 1.8 K/mcL (0.6-4.6); Monocytes # 1.8 K/mcL (0.0-1.3); Neutrophils # 11.3 K/mcL (1.6-8.9); Platelet Estimate Normal (Normal)
[2016-03-27] MEDS ORDERED: hydrALAZINE 25 MG TABLET PO SCH (08:00)
[2016-03-27] MEDS: *HR* Heparin 5,000 UNIT/ML VIAL SQ SCH ×2 (08:23→18:34)
[2016-03-27] MEDS: Insulin LISPRO 300 UNITS/3 ML VIAL SQ SCH ×4 (08:23→20:16)
[2016-03-27] MEDS: predniSONE 20 MG TABLET PO SCH (08:35)
[2016-03-27] MEDS: Aspirin 81 MG TAB.CHEW PO SCH (08:36)
[2016-03-27] MEDS: traMADol 50 MG TABLET PO SCH ×2 (08:36→20:15)
[2016-03-27] MEDS: Insulin DETEMIR 100 UNIT/ML X5UNITS SQ SCH ×2 (08:38→20:16)
[2016-03-27] MEDS: Metoprolol 100 MG TABLET PO SCH ×2 (08:38→20:14)
[2016-03-27] MEDS: Nicotine 21 MG PATCH.TD24 TD SCH (08:39)
[2016-03-27] MEDS ORDERED: Pantoprazole 40 MG VIAL IVP SCH (09:00)
[2016-03-27] MEDS ORDERED: *HR* OxyCODONE Immed Rel 5 MG TABLET PO PRN ×2 (12:40→12:41)
[2016-03-27] MEDS: hydrALAZINE 25 MG TABLET PO SCH ×2 (13:18→20:15)
[2016-03-27] MEDS: hydroCHLOROthiazide 25 MG TABLET PO SCH (13:19)
[2016-03-27] MEDS: Sennosides/Docusate Sodium TABLET PO SCH ×2 (13:28→20:06)
[2016-03-28] MEDS: 0.9 % Sodium Chloride 1,000 ML IVC SCH (02:08)
[2016-03-28] MEDS: Ipratropium/Albuterol Neb 3 ML IH SCH ×4 (04:44→22:52)
[2016-03-28 05:46] LABS: Hematocrit 30.2 % (35.3-44.9); Hemoglobin 9.5 g/dL (11.5-15.4); Mean Corpuscular HGB Conc 31.5 g/dL (31.6-35.5); Mean Corpuscular Hemoglobin 26.5 pg (28.0-33.3); Mean Corpuscular Volume 84.1 fL (83.0-100.0); Mean Platelet Volume 9.5 fL (9.4-12.4); Nucleated Red Blood Cells 0.1 /100 WBC (0); Platelet Count 377 K/mcL (140-400); Red Blood Count 3.59 M/mcL (3.82-4.97); Red Cell Distribution Width 15.7 % (11.5-14.5)
[2016-03-28] MEDS: *HR* Heparin 5,000 UNIT/ML VIAL SQ SCH ×2 (05:56→18:44)
[2016-03-28 06:04] LABS: Calcium 9.9 mg/dL (8.6-10.8); Potassium 4.2 mEq/L (3.5-4.5)
[2016-03-28 06:19] LABS: Monocytes # 0.9 K/mcL (0.0-1.3); Neutrophils # 11.2 K/mcL (1.6-8.9); Platelet Estimate Normal (Normal)
[2016-03-28] MEDS: Insulin LISPRO 300 UNITS/3 ML VIAL SQ SCH ×4 (07:47→21:37)
[2016-03-28] MEDS: hydrALAZINE 25 MG TABLET PO SCH ×2 (07:48→21:36)
[2016-03-28] MEDS: Metoprolol 100 MG TABLET PO SCH ×2 (07:49→21:37)
[2016-03-28] MEDS: Aspirin 81 MG TAB.CHEW PO SCH (07:50)
[2016-03-28] MEDS: hydroCHLOROthiazide 25 MG TABLET PO SCH (07:50)
[2016-03-28] MEDS: traMADol 50 MG TABLET PO SCH ×2 (07:51→21:36)
[2016-03-28] MEDS: Sennosides/Docusate Sodium TABLET PO SCH ×2 (07:51→21:37)
[2016-03-28] MEDS: Nicotine 21 MG PATCH.TD24 TD SCH (07:53)
[2016-03-28] MEDS ORDERED: Levofloxacin 750 MG/150 ML 750 MG/150 ML BAG IVPB SCH (08:00)
[2016-03-28] MEDS ORDERED: predniSONE 20 MG TABLET PO SCH (09:00)
[2016-03-28] MEDS: amLODIPine 5 MG TABLET PO SCH (11:00)
[2016-03-28] MEDS: Insulin DETEMIR 100 UNIT/ML X5UNITS SQ SCH ×2 (11:00→21:37)
[2016-03-28] MEDS: predniSONE 20 MG TABLET PO SCH (11:41)
[2016-03-28] MEDS ORDERED: Levofloxacin 500 MG/100 ML 500 MG/100 ML BAG IVPB SCH (12:00)
[2016-03-28] MEDS ORDERED: cloNIDine HCl 0.1 MG TABLET PO ONE (16:12)
--- NOTE | 2016-03-28 16:25 | Internal Med Progress Note ---
Date of Encounter: 03/28/16 Time of Encounter: 09:10 - Assessment and plan (1) VALERY (acute kidney injury) Current Visit: Yes Status: Acute Assessment and plan: Improving Continue surrent care, avoid nephrotoxins. (2) Pneumonia Current Visit: Yes Status: Acute Assessment and plan: Improving clinically. Continue IV antibiotics, IV hydration, when necessary supplemental oxygen. Continues to require nasal cannula oxygen. Leukocytosis secondary to steroids, monitor Qualifiers: Pneumonia type: due to unspecified organism Laterality: right Lung location: upper lobe of lung Qualified Code(s): J18.1 - Lobar pneumonia, unspecified organism (3) Severe sepsis Current Visit: Yes Status: Acute Assessment and plan: Patient is noted to have pneumonia with acute kidney injury and elevated serum troponin. Improving. Hold IV hydration Change a/b to oral Monitor renal function closely. Monitor urine output closely. (4) Coronary artery disease Current Visit: Yes Status: Chronic Assessment and plan: Status post coronary artery bypass graft. Continue aspirin, Plavix, beta dimple, MIKE inhibitor and statin. Outpatient cardiology follow-up recommended. Qualifiers: Coronary Disease-Associated Artery/Lesion type: bypass graft [place] vs. transplanted heart: [place] heart Associated angina: without angina Qualified Code(s): I25.810 - Atherosclerosis of coronary artery bypass graft(s) without angina pectoris (5) Diabetes mellitus type 2, uncontrolled Current Visit: Yes Status: Chronic Assessment and plan: Hemoglobin A1c noted to be 8.1%. FS ACHS Continue insulin SQ-basal, pre-meal and supplemental Diabetic diet. Qualifiers: Diabetes mellitus complication status: with neurologic complications Diabetes mellitus complication detail: with unspecified neuropathy Diabetes mellitus lobsterman insulin use: with alf use Qualified Code(s): E11.40 - Type 2 diabetes mellitus with diabetic neuropathy, unspecified; E11.65 - Type 2 diabetes mellitus with hyperglycemia; Z79.4 - FPC (current) use of insulin (6) Hyperlipidemia Current Visit: Yes Status: Chronic Qualifiers: Hyperlipidemia type: unspecified Qualified Code(s): E78.5 - Hyperlipidemia , unspecified (7) Hypertension Current Visit: Yes Status: Chronic Assessment and plan: On hydralazine, metroprolol, isosorbide, amlodipine, HCTZ Added clonidine May be difficult to control secondary to steroids Monitor closely Qualifiers: Hypertension type: essential hypertension Qualified Code(s): I10 - Essential (primary) hypertension (8) Hypothyroid Current Visit: Yes Status: Chronic Assessment and plan: Resume levothyroxine. Qualifiers: Hypothyroidism type: acquired Qualified Code(s): E03.9 - Hypothyroidism, unspecified (9) Rheumatoid arthritis Current Visit: Yes Status: Chronic Qualifiers: Rheumatoid arthritis location: unspecified site Rheumatoid factor presence : unspecified presence Qualified Code(s): M06.9 - Rheumatoid arthritis, unspecified (10) Tobacco abuse Current Visit: Yes Status: Chronic - Subjective Interval history: 60 Y/O F with Acute respiratory failure with Sepsis secondary to CAP, RUL, VALERY on CKD (resolved), Hypothyroidism, RA, DM, HLD She was seen at bedside Of note, her blood pressure has not been controlled despite adjustment and titration of her medications Today she has no new complains I have decreased her prednisone dose and increased her home dose of antihypertensives I have restarted Amlodipine and added CLonidine later in the afternoon when her blood pressure remained elevated She will be kept overnight to ensure blood pressure control She qualified for oxygen at home In the meantime, will continue current management Today is Day 4 of IV Levoflox, change to po Cultures have been negative so far - Constitutional Vitals: Temp Pulse Resp BP Pulse Ox 98.4 F 80 18 193/72 92 L 03/28/16 15:48 03/28/16 15:48 03/28/16 15:48 03/28/16 15:48 03/28/16 15:48 General appearance: Present: A&O X 3, pleasant, no acute distress, answers questions appropriately - Head Head exam: Present: atraumatic, normocephalic - Eye Eye exam: Present: PERRL, conjuntiva pink, sclera anicteric Pupils: Present: PERRL - Neck Neck exam general surgery: Present: supple, trachea midline. Absent: lymphadenopathy - Respiratory Respiratory exam: Present: CTAB. Absent: accessory muscle use, rales, rhonchi, wheezes - Cardiovascular Cardiovascular exam: Present: RRR, +S1, +S2. Absent: diastolic murmur, gallop, rubs, systolic murmur - GI/Abdominal GI/Abdominal exam: Present: normal bowel sounds, soft, no peritoneal signs. Absent: distended, tenderness - Extremities Exam Extremities exam: Present: warm, radial pulses palpable and symetrical. Absent : calf tenderness, cyanotic, pedal edema - Neurological Exam Neurological exam: Present: CN II-XII intact, oriented X3, no focal deficits. Absent: pronater drift, facial droop, speech deficit - Skin Skin exam: Present: dry Internal Medicine: Result - Labs CBC & Chem 7: 03/28/16 05:08 03/28/16 05:08 Labs: Short CBC 03/28/16 Range/Units 05:08 WBC 15.1 H (4.3-11.1) K/mcL Hgb 9.5 L (11.5-15.4) g/dL Hct 30.2 L (35.3-44.9) % Plt Count 377 (140-400) K/mcL Neutrophils # 11.2 H (1.6-8.9) K/mcL BMP 03/28/16 05:08 Sodium 138 Potassium 4.2 Chloride 106 Carbon Dioxide 21 BUN 48 H D Creatinine 1.29 H Glucose 225 H Calcium 9.9 - ABG Interpretation ABG results: PT/INR, D-dimer PT 12.7 Seconds (9.4-12.1) H 03/27/16 04:00 - VTE Documentation of Mechanical Device: Intermittent pneumatic compression device Consult Discharge Plan - Plan Referrals: Lindsay Mcclain CNP [Primary Care Provider] -
[2016-03-29] MEDS: Ipratropium/Albuterol Neb 3 ML IH SCH ×3 (04:52→16:17)
[2016-03-29 05:08] LABS: Hematocrit 28.8 % (35.3-44.9); Hemoglobin 9.3 g/dL (11.5-15.4); Mean Corpuscular HGB Conc 32.3 g/dL (31.6-35.5); Mean Corpuscular Volume 83.7 fL (83.0-100.0); Mean Platelet Volume 9.3 fL (9.4-12.4); Nucleated Red Blood Cells 0.3 /100 WBC (0); Platelet Count 327 K/mcL (140-400); Red Blood Count 3.44 M/mcL (3.82-4.97); Red Cell Distribution Width 15.8 % (11.5-14.5)
[2016-03-29 05:12] LABS: BUN/Creatinine Ratio 36 (6-26); Blood Urea Nitrogen 36 mg/dL (7-20); Calcium 10.4 mg/dL (8.6-10.8); Carbon Dioxide 26 mEq/L (19-29); Chloride 104 mEq/L (98-109); Glucose 128 mg/dL (70-99); Osmolality,Calculated 304 (280-300); Potassium 3.7 mEq/L (3.5-4.5); Sodium 142 mEq/L (136-145); eGFR For African Americans > 60 (> 60); eGFR For Non-African Americans 57 (> 60)
[2016-03-29 05:43] LABS: Eosinophils # 0.2 K/mcL (0.0-0.6); Lymphocytes # 3.1 K/mcL (0.6-4.6); Monocytes # 0.2 K/mcL (0.0-1.3); Neutrophils # 7.9 K/mcL (1.6-8.9); Platelet Estimate Normal (Normal)
[2016-03-29] MEDS: *HR* Heparin 5,000 UNIT/ML VIAL SQ SCH ×2 (07:11→07:15)
[2016-03-29] MEDS: Insulin LISPRO 300 UNITS/3 ML VIAL SQ SCH ×2 (08:19→12:08)
[2016-03-29] MEDS: traMADol 50 MG TABLET PO SCH (08:20)
[2016-03-29] MEDS: predniSONE 20 MG TABLET PO SCH (08:20)
[2016-03-29] MEDS: Metoprolol 100 MG TABLET PO SCH (08:20)
[2016-03-29] MEDS: amLODIPine 5 MG TABLET PO SCH (08:20)
[2016-03-29] MEDS: hydroCHLOROthiazide 25 MG TABLET PO SCH (08:20)
[2016-03-29] MEDS: Aspirin 81 MG TAB.CHEW PO SCH (08:21)
[2016-03-29] MEDS: Sennosides/Docusate Sodium TABLET PO SCH (08:21)
[2016-03-29] MEDS: Nicotine 21 MG PATCH.TD24 TD SCH (08:22)
[2016-03-29] MEDS: hydrALAZINE 25 MG TABLET PO SCH (08:22)
[2016-03-29] MEDS: Insulin DETEMIR 100 UNIT/ML X5UNITS SQ SCH (08:35)
[2016-03-29] MEDS ORDERED: levoFLOXacin 750 MG TABLET PO SCH (09:00)
[2016-03-29 11:59] VITALS: BP 145/57
--- NOTE | 2016-03-29 13:07 | Discharge Summary ---
Date of Encounter: 03/29/16 Time of Encounter: 09:00 - Discharge Diagnosis (1) Acute on chronic respiratory failure with hypoxia Priority: Primary Status: Acute (2) VALERY (acute kidney injury) Priority: Primary Status: Resolved (3) Pneumonia Priority: Primary Status: Acute Qualifiers: Pneumonia type: due to unspecified organism Laterality: right Lung location: upper lobe of lung Qualified Code(s): J18.1 - Lobar pneumonia, unspecified organism (4) Severe sepsis Priority: Primary Status: Acute (5) Coronary artery disease Priority: Secondary Status: Chronic Qualifiers: Coronary Disease-Associated Artery/Lesion type: bypass graft [place] vs. transplanted heart: [place] heart Associated angina: without angina Qualified Code(s): I25.810 - Atherosclerosis of coronary artery bypass graft(s) without angina pectoris (6) Diabetes mellitus type 2, uncontrolled Priority: Secondary Status: Chronic Qualifiers: Diabetes mellitus complication status: with neurologic complications Diabetes mellitus complication detail: with unspecified neuropathy Diabetes mellitus keg washer insulin use: with keg washer use Qualified Code(s): E11.40 - Type 2 diabetes mellitus with diabetic neuropathy, unspecified; E11.65 - Type 2 diabetes mellitus with hyperglycemia; Z79.4 - recorder of deeds (current) use of insulin (7) Hyperlipidemia Priority: Secondary Status: Chronic Qualifiers: Hyperlipidemia type: unspecified Qualified Code(s): E78.5 - Hyperlipidemia , unspecified (8) Hypertension Priority: Secondary Status: Chronic Qualifiers: Hypertension type: essential hypertension Qualified Code(s): I10 - Essential (primary) hypertension (9) Hypothyroid Priority: Secondary Status: Chronic Qualifiers: Hypothyroidism type: acquired Qualified Code(s): E03.9 - Hypothyroidism, unspecified (10) Rheumatoid arthritis Priority: Secondary Status: Chronic Qualifiers: Rheumatoid arthritis location: unspecified site Rheumatoid factor presence : unspecified presence Qualified Code(s): M06.9 - Rheumatoid arthritis, unspecified (11) Tobacco abuse Priority: Secondary Status: Chronic - Discharge Medications Prescriptions: CloNIDine HCl 0.2 mg PO BID #60 tablet GuaiFENesin ER [Mucinex] 600 mg PO BID #15 tbbp.12hr Levofloxacin 750 mg PO DAILY #4 tablet Nicotine Patch [Nicoderm] 21 mg TD DAILY #15 patch.td24 Sennosides/Docusate Sodium [Senna Plus] 1 each PO BID PRN #30 tablet PRN Reason: Constipation Home Medications: Amlodipine [Norvasc] 10 mg PO DAILY 06/10/15 [History] Clopidogrel [Plavix] 75 mg PO DAILY 06/10/15 [History] Cyclobenzaprine [Flexeril] 10 mg PO TID 06/10/15 [History] Gabapentin [Neurontin] 300 mg PO TID 06/10/15 [History] Insulin ASPART [NovoLOG] 21 unit SQ TIDWM 06/10/15 [History] Insulin Glargine [Lantus] 70 unit SQ HS 06/10/15 [History] Isosorbide DInitrate [Isosorbide Dinitrate] 30 mg PO DAILY 06/10/15 [History] Lisinopril [Zestril] 10 mg PO DAILY 06/10/15 [History] Metoprolol [Lopressor] 100 mg PO BID 06/10/15 [History] Rosuvastatin [Crestor] 40 mg PO DAILY 06/10/15 [History] TraMADol [Ultram] 50 mg PO TID 06/10/15 [History] Hydrochlorothiazide 25 mg PO DAILY 02/01/16 [History] Levothyroxine Sodium [Levoxyl] 125 mcg PO DAILY 02/01/16 [History] Metformin [Glucophage] 1,000 mg PO BID 02/01/16 [History] BuPROPion [Wellbutrin] 100 mg PO BID 03/20/16 [History] Fenofibrate 54 mg PO DAILY 03/20/16 [History] Hydralazine HCl 100 mg PO BID 03/26/16 [History] Omeprazole [PriLOSEC] 20 mg PO DAILY 03/26/16 [History] PredniSONE [Deltasone] 20 mg PO DAILY 03/26/16 [History] CloNIDine HCl 0.2 mg PO BID #60 tablet 03/29/16 [Rx] GuaiFENesin ER [Mucinex] 600 mg PO BID #15 tbbp.12hr 03/29/16 [Rx] Levofloxacin 750 mg PO DAILY #4 tablet 03/29/16 [Rx] Nicotine Patch [Nicoderm] 21 mg TD DAILY #15 patch.td24 03/29/16 [Rx] PredniSONE 20 mg PO DAILY tablet 03/29/16 [Rx] Sennosides/Docusate Sodium [Senna Plus] 1 each PO BID PRN #30 tablet 03/29/16 [ Rx] Allergies/Adverse Reactions: Allergies Penicillins [PCN] Allergy (Verified 03/19/16 21:38) Hives Date of admission: 03/26/16 02:38 Primary care physician: Lindsay Mcclain Consults: 03/26/16 04:30 Consult to Inspector Missile [CONS] Routine Comment: Consult to Nurse Navigator [CONS] Routine Comment: 03/26/16 06:04 Consult to Cardiology [CONS] Routine Comment: Consulting Provider: Cardiology Jennifer Reason for Consult: Demand Ischemia r/o ACS Call Completed: No 03/28/16 10:46 Consult to Wild Life Photographer [CONS] Routine Reason for SW Consult: NEEDS HOME O2 SET UP, NURSE QUALIFIED Discharging clinician: Adal Smith Anticipated date of discharge: 03/29/16 - Patient Status Disposition: Home, Self-Care Condition: Fair Functional capacity at discharge: independent ambulation Overall status at discharge: patient is progressing back to baseline - Discharge Instructions Instructions: Diabetes Mellitus Type 2 in Adults (DC), Chronic Hypertension (DC ), Pneumonia (DC) Follow Up With: Lindsay Mcclain, FI[employer] P[employer] LINES SUPERVISOR [Primary Care Provider] - - Diet and Activity Activity: resume usual activities as tolerated, wear oxygen at all times Diet: advance to your usual diet Interval History: See below Hospital course: 60 Y/O F admitted for management of acute respiratory failure with Sepsis secondary to CAP, RUL, VALERY on CKD (resolved), Hypothyroidism, RA, DM, HLD Hospital stay was complicated by uncontrolled blood pressure (which is chronic per patient), necessitating titration of multiple medications She was seen at bedside today with no new complains Cultures have been negative so far She has since made improvement and her respiratory status is better. However, she continued to depend on oxygen and qualified for home O2 Her blood pressure is better controlled now She did have slightly elevated troponin on admission that has trended down, she was reviewed by cardiology with no recommendation for ACS treatment. 2D ECHO showed LVEF 60-55%, pseudonormal LV DD, no pulm HTN, mild pericardial HTN She received 5 days of IV Levoflox Will discharge home to complete 7 days of oral antibiotics therapy She will continue with her home dose of prednisone for RA She states she has received flu shot VALERY has since resolved, renal function is back to baseline I have discussed with patient due her resistant HTN, she may benefit from work up for secondary HTN by her PCP Other chronic medical conditions remain stable Smoking cessation discussed for about 5 minutes, NRT provided Time spent discussing smoking cessation with patient: 3 to 10 minutes - Time Spent with Patient Total time spent providing and/or coordinating discharge services: Less than 30 minutes - Constitutional Vitals: Temp Pulse Resp BP Pulse Ox 97.6 F 76 16 145/57 98 03/29/16 11:58 03/29/16 11:58 03/29/16 11:58 03/29/16 11:58 03/29/16 11:58 General appearance: Present: A&O X 3, pleasant, no acute distress, answers questions appropriately - Head Head exam: Present: atraumatic, normocephalic - Eye Eye exam: Present: PERRL, conjuntiva pink, sclera anicteric Pupils: Present: PERRL - Neck Neck exam general surgery: Present: supple, trachea midline. Absent: lymphadenopathy - Respiratory Respiratory exam: Present: CTAB. Absent: accessory muscle use, rales, rhonchi, wheezes - Cardiovascular Cardiovascular exam: Present: RRR, +S1, +S2. Absent: diastolic murmur, gallop, rubs, systolic murmur - GI/Abdominal GI/Abdominal exam: Present: normal bowel sounds, soft, no peritoneal signs. Absent: distended, tenderness - Extremities Exam Extremities exam: Present: warm, radial pulses palpable and symetrical. Absent : calf tenderness, cyanotic, pedal edema - Neurological Exam Neurological exam: Present: CN II-XII intact, oriented X3, no focal deficits. Absent: pronater drift, facial droop, speech deficit - Skin Skin exam: Present: dry, intact - VTE Documentation of Mechanical Device: Intermittent pneumatic compression device
[2016-03-29] MEDS ORDERED: cloNIDine HCl 0.1 MG TABLET PO SCH ×2 (21:00)
[2016-03-30] MEDS ORDERED: levoFLOXacin 750 MG TABLET PO SCH (09:00)
== END 2016-03-29 16:27 | disposition home or self-care (01) | DRG 871 ==
LOC: SUATTDRO 02:38 → 2ANU 02:38
PROVIDERS: ADMIT Internal Medicine; ATTEND Internal Medicine

== ENCOUNTER 2016-07-02 06:46 | Observation (INO) ==
[2016-07-02] MEDS ORDERED: Naloxone 0.4 MG/ML INJ IVP PRN (08:14)
--- NOTE | 2016-07-02 08:36 | Internal Med History&Physical ---
Date of Encounter: 07/02/16 Time of Encounter: 08:20 Assessment and Plan (1) Angioedema Current visit: Yes Status: Acute Most likely related to use of MIKE inhibitor. Will monitor vital signs. Observation overnight in the hospital. Continue her prednisone, Benadryl and Pepcid. Qualifiers: Encounter type: initial encounter Qualified Code(s): T78.3XXA - Angioneurotic edema, initial encounter (2) Coronary artery disease Current visit: No Status: Chronic Continue home medications but hold lisinopril. Will switch to ARB. Qualifiers: Coronary Disease-Associated Artery/Lesion type: bypass graft [place] vs. transplanted heart: [place] heart Associated angina: without angina Qualified Code(s): I25.810 - Atherosclerosis of coronary artery bypass graft(s) without angina pectoris (3) Diabetes mellitus type 2, uncontrolled Current visit: No Status: Chronic Monitor blood sugars. Sliding scale insulin. Diabetic diet. Qualifiers: Diabetes mellitus complication status: with neurologic complications Diabetes mellitus complication detail: with unspecified neuropathy Diabetes mellitus correction insulin use: with correction use Qualified Code(s): E11.40 - Type 2 diabetes mellitus with diabetic neuropathy, unspecified; E11.65 - Type 2 diabetes mellitus with hyperglycemia; Z79.4 - FDC (current) use of insulin (4) Hypertension Current visit: No Status: Chronic Uncontrolled. Will resume home medications were discontinued lisinopril. Adjust antihypertensive regimen according to blood pressure. Qualifiers: Hypertension type: essential hypertension Qualified Code(s): I10 - Essential (primary) hypertension Internal Medicine - H&P: HPI Chief complaint: Tongue swelling and difficulty breathing Admitted From: Emergency Dept Plans for Post Hospital Care: Home History of present illness: Ms. Graham is a 60 year old female patient with a history of coronary artery disease, hypertension, diabetes mellitus type 2 presented to the ER at [facility] with complaints of swelling of her tongue along with shortness of breath. She says she woke up with these symptoms early this morning. She was taken to the ER and was given Solu-Medrol, Pepcid and Benadryl with improvement in her symptoms. She is now feeling much better with improvement in the swelling of her tongue. She denies any throat swelling. Denies any chest pain. Denies any palpitations. She has never had these symptoms in the past. She does take aspirin and MIKE inhibitor. Past Med Surg Social Fam HX - Past Medical History Attestation: Yes The following information was validated with the patient. Source: patient Medical history: COPD, coronary artery disease, diabetes, GERD, hyperlipidemia, hypertension, myocardial infarction, RA, thyroid disease, TIA Psychiatric history: no psych history - Past Surgical History Surgical History: angioplasty/stent, coronary bypass (CABG), hysterectomy, thyroidectomy - Social History Smoking Status: Current every day smoker Smokeless Tobacco Status: No Alcohol use: none Drug use: marijuana - Family History Mother Adopted: No Family Member Ethnicity: Non- Living Status: Hx Family Cardiac Disorders: Yes ( of CT) Hx Family Respiratory Disorders: No Hx Family Cancer: Yes (breast ca) Hx Family GI Disorders: No Hx Family Endocrine Disorder: No Hx Family Neuromuscular Disorders: No Hx Family Neurologic Disorders: No Hx Family HEENT Disorders: No Hx Family Autoimmune Disorders: No Internal Medicine - H&P: Meds Amlodipine [Norvasc] 10 mg PO DAILY 06/10/15 [History] Clopidogrel [Plavix] 75 mg PO DAILY 06/10/15 [History] Cyclobenzaprine [Flexeril] 10 mg PO TID 06/10/15 [History] Gabapentin [Neurontin] 300 mg PO TID 06/10/15 [History] Insulin ASPART [NovoLOG] 21 unit SQ TIDWM 06/10/15 [History] Insulin Glargine [Lantus] 70 unit SQ HS 06/10/15 [History] Isosorbide DInitrate [Isosorbide Dinitrate] 30 mg PO DAILY 06/10/15 [History] Lisinopril [Zestril] 10 mg PO DAILY 06/10/15 [History] Rosuvastatin [Crestor] 40 mg PO DAILY 06/10/15 [History] TraMADol [Ultram] 50 mg PO TID 06/10/15 [History] Hydrochlorothiazide 25 mg PO DAILY 02/01/16 [History] Levothyroxine Sodium [Levoxyl] 125 mcg PO DAILY 02/01/16 [History] Metformin [Glucophage] 1,000 mg PO BID 02/01/16 [History] BuPROPion [Wellbutrin] 100 mg PO BID 03/20/16 [History] Fenofibrate 54 mg PO DAILY 03/20/16 [History] Hydralazine HCl 100 mg PO BID 03/26/16 [History] Omeprazole [PriLOSEC] 20 mg PO DAILY 03/26/16 [History] CloNIDine HCl 0.2 mg PO BID #60 tablet 03/29/16 [Rx] GuaiFENesin ER [Mucinex] 600 mg PO BID #15 tbbp.12hr 03/29/16 [Rx] Nicotine Patch [Nicoderm] 21 mg TD DAILY #15 patch.td24 03/29/16 [Rx] Sennosides/Docusate Sodium [Senna Plus] 1 each PO BID PRN #30 tablet 03/29/16 [ Rx] Allergies Penicillins [PCN] Allergy (Verified 03/19/16 21:38) Hives All Systems PM: A 10-system review of systems was performed and is negative for pertinent findings except as documented above in the HPI. - Constitutional Constitutional: no chills, no fever(s), no night sweats - EENT Eyes: no change in vision, no discharge, no pain, no photophobia Ears: no ear discharge, no ear pain, no tinnitus Nose, mouth and throat: tongue swelling, no dysphagia, no nasal discharge, no neck pain, no sore throat - Cardiovascular Cardiovascular ROS IM: dyspnea, no chest pain, no diaphoresis, no lightheadedness, no palpitations, no syncope - Respiratory Respiratory: no cough, no dyspnea, no wheezing, no excessive phlegm production - Gastrointestinal Gastrointestinal: no abdominal pain, no diarrhea, no hematemesis, no hematochezia, no melena, no nausea, no vomiting - Genitourinary Genitourinary: no change in urinary stream, no dysuria, no flank pain, no hematuria - Musculoskeletal Musculoskeletal ROS IM: no numbness, no tingling - Integumentary Integumentary IM: no rash, no unusual bruising - Neurological Neurological ROS: no confusion, no convulsions, no focal weakness, no numbness, no tingling, no tremor(s) - Hematologic/Lymphatic Hematologic/Lymphatic: no easy bruising - Constitutional General appearance: Present: cooperative, A&O X 3, answers questions appropriately - Eye Eye exam: Present: PERRL, conjuntiva pink, sclera anicteric Pupils: Present: PERRL - ENT Additional comments: Tongue swelling improving - Neck Neck exam general surgery: Present: supple, trachea midline. Absent: lymphadenopathy - Respiratory Respiratory exam: Present: CTAB. Absent: accessory muscle use, rales, rhonchi, wheezes - Cardiovascular Cardiovascular exam: Present: RRR, +S1, +S2. Absent: diastolic murmur, gallop, rubs, systolic murmur - GI/Abdominal GI/Abdominal exam: Present: normal bowel sounds, soft, no peritoneal signs. Absent: distended, tenderness - Extremities Exam Extremities exam: Present: warm, radial pulses palpable and symetrical. Absent : calf tenderness, cyanotic, pedal edema - Neurological Exam Neurological exam: Present: alert, oriented X3, no focal deficits. Absent: facial droop, speech deficit - Skin Skin exam: Present: dry, intact - Attending Attestation This document has been at least partially created by [employer] voice recognition technology by Dr. Weiss. Errors in grammar, wording or other phrases may exist. If errors are found after the documentation is signed, they will be addressed individually in the addendum section of this document when appropriate.
[2016-07-02] MEDS ORDERED: Dextrose Gel 15 GM PO PRN ×2 (08:56)
[2016-07-02] MEDS ORDERED: D5% in Water 1,000 ML IVC PRN (08:56)
[2016-07-02] MEDS ORDERED: *HR* Dextrose 50 % in Water (Syg) 50 ML SYRINGE IVP PRN (08:56)
[2016-07-02 09:39] LABS: Hemoglobin A1C 7.2 %
[2016-07-02] MEDS ORDERED: Sennosides/Docusate Sodium TABLET PO PRN (09:51)
[2016-07-02] MEDS ORDERED: traMADol 50 MG TABLET PO PRN (09:52)
[2016-07-02] MEDS: cloNIDine HCl 0.1 MG TABLET PO SCH ×2 (10:22→19:54)
[2016-07-02] MEDS: hydrALAZINE 25 MG TABLET PO SCH ×2 (10:23→19:53)
[2016-07-02] MEDS: hydroCHLOROthiazide 25 MG TABLET PO SCH (10:23)
[2016-07-02] MEDS: Famotidine 20 MG TABLET PO SCH ×2 (10:24→19:55)
[2016-07-02] MEDS: amLODIPine 5 MG TABLET PO SCH (10:24)
[2016-07-02] MEDS: Furosemide 40 MG/4 ML VIAL IVP ONE (10:25)
[2016-07-02] MEDS: predniSONE 20 MG TABLET PO SCH (10:25)
[2016-07-02] MEDS: Acetaminophen 325 MG TABLET PO PRN ×2 (10:26→19:53)
[2016-07-02] MEDS: Insulin DETEMIR 100 UNIT/ML X5UNITS SQ SCH ×2 (10:32→20:20)
[2016-07-02] MEDS: Insulin LISPRO 300 UNITS/3 ML VIAL SQ SCH ×3 (11:31→17:05)
[2016-07-02] MEDS: Gabapentin 300 MG CAPSULE PO SCH ×2 (13:55→19:53)
[2016-07-02] MEDS: Metoprolol 100 MG TABLET PO SCH (19:55)
[2016-07-02] MEDS ORDERED: Insulin LISPRO 300 UNITS/3 ML VIAL SQ SCH ×2 (21:00)
[2016-07-03 04:18] LABS: Basophils % 0.1 %; Eosinophils % 0.1 %; Hematocrit 27.2 % (35.3-44.9); Hemoglobin 8.6 g/dL (11.5-15.4); Immature Granulocytes % 1.2 % (0-4); Lymphocytes # 1.3 K/mcL (0.6-4.6); Lymphocytes % 8.9 %; Mean Corpuscular HGB Conc 31.6 g/dL (31.6-35.5); Mean Corpuscular Hemoglobin 25.1 pg (28.0-33.3); Mean Corpuscular Volume 79.3 fL (83.0-100.0); Mean Platelet Volume 10.1 fL (9.4-12.4); Monocytes # 0.8 K/mcL (0.0-1.3); Monocytes % 5.3 %; Platelet Count 412 K/mcL (140-400); Red Blood Count 3.43 M/mcL (3.82-4.97); Red Cell Distribution Width 15.4 % (11.5-14.5); Segmented Neutrophils % 84.4 %
[2016-07-03 04:37] LABS: Calcium 10.2 mg/dL (8.6-10.8); Potassium 3.9 mEq/L (3.5-4.5)
[2016-07-03] MEDS: Metoprolol 100 MG TABLET PO SCH (07:39)
[2016-07-03] MEDS: amLODIPine 5 MG TABLET PO SCH (07:39)
[2016-07-03] MEDS: cloNIDine HCl 0.1 MG TABLET PO SCH (07:39)
[2016-07-03] MEDS: predniSONE 20 MG TABLET PO SCH (07:40)
[2016-07-03] MEDS: Insulin LISPRO 300 UNITS/3 ML VIAL SQ SCH ×4 (07:51→12:58)
[2016-07-03] MEDS: Gabapentin 300 MG CAPSULE PO SCH ×2 (07:57→15:49)
[2016-07-03] MEDS: hydroCHLOROthiazide 25 MG TABLET PO SCH (07:57)
[2016-07-03] MEDS: hydrALAZINE 25 MG TABLET PO SCH (07:57)
[2016-07-03] MEDS: Famotidine 20 MG TABLET PO SCH (07:57)
--- NOTE | 2016-07-03 08:36 | Discharge Summary ---
Date of Encounter: 07/03/16 Time of Encounter: 08:15 - Discharge Diagnosis (1) Angioedema Priority: Primary Status: Resolved Qualifiers: Encounter type: initial encounter Qualified Code(s): T78.3XXA - Angioneurotic edema, initial encounter (2) Coronary artery disease Priority: Secondary Status: Chronic Qualifiers: Coronary Disease-Associated Artery/Lesion type: bypass graft [place] vs. 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 Qualified Code(s): E11.40 - Type 2 diabetes mellitus with diabetic neuropathy, unspecified; E11.65 - Type 2 diabetes mellitus with hyperglycemia; Z79.4 - [facility] (current) use of insulin (4) Hypertension Priority: Secondary Status: Chronic Qualifiers: Hypertension type: essential hypertension Qualified Code(s): I10 - Essential (primary) hypertension (5) Chronic kidney disease, stage 3 Priority: Secondary Status: Chronic (6) Anemia Priority: Secondary Status: Acute Qualifiers: Anemia type: other cause Other causes of anemia: chronic disease, kidney Qualified Code(s): N18.9 - Chronic kidney disease, unspecified; D63.1 - Anemia in chronic kidney disease - Discharge Medications Prescriptions: Ferrous Sulfate 325 mg PO BIDWM #60 tablet. Losartan [Cozaar] 25 mg PO DAILY #30 tablet PredniSONE 10 mg PO DAILY 6 Days Home Medications: Amlodipine [Norvasc] 10 mg PO DAILY 06/10/15 [History] Clopidogrel [Plavix] 75 mg PO DAILY 06/10/15 [History] Cyclobenzaprine [Flexeril] 10 mg PO TID 06/10/15 [History] Gabapentin [Neurontin] 300 mg PO TID 06/10/15 [History] Insulin ASPART [NovoLOG] 21 unit SQ TIDWM 06/10/15 [History] Insulin Glargine [Lantus] 70 unit SQ HS 06/10/15 [History] Isosorbide DInitrate [Isosorbide Dinitrate] 30 mg PO BID 06/10/15 [History] Rosuvastatin [Crestor] 40 mg PO DAILY 06/10/15 [History] TraMADol [Ultram] 50 mg PO QID 06/10/15 [History] Levothyroxine Sodium [Levoxyl] 125 mcg PO DAILY 02/01/16 [History] Metformin [Glucophage] 1,000 mg PO BID 02/01/16 [History] BuPROPion [Wellbutrin] 100 mg PO BID 03/20/16 [History] Fenofibrate 54 mg PO DAILY 03/20/16 [History] Hydralazine HCl 100 mg PO BID 03/26/16 [History] Omeprazole [PriLOSEC] 20 mg PO DAILY 03/26/16 [History] CloNIDine HCl 0.2 mg PO BID #60 tablet 03/29/16 [Rx] Metoprolol [Lopressor] 100 mg PO BID 07/02/16 [History] Sennosides/Docusate Sodium [Senna Plus] 1 tab PO BID PRN 07/02/16 [History] Ferrous Sulfate 325 mg PO BIDWM #60 tablet. 07/03/16 [Rx] Losartan [Cozaar] 25 mg PO DAILY #30 tablet 07/03/16 [Rx] PredniSONE 10 mg PO DAILY 6 Days 07/03/16 [Rx] Allergies/Adverse Reactions: Allergies Penicillins [PCN] Allergy (Verified 03/19/16 21:38) Hives - Notes to Outpatient Provider Please arrange referral to nephrology for chronic kidney disease related to type 2 diabetes mellitus Date of admission: 07/02/16 08:02 Primary care physician: PCP NO Discharging clinician: Marissa Weiss Anticipated date of discharge: 07/03/16 - Patient Status Disposition: Home, Self-Care Condition: Good Functional capacity at discharge: independent ambulation Overall status at discharge: patient is back to baseline - Discharge Instructions Follow Up With: NO,PCP [Primary Care Provider] - (With PCP in one week) - Diet and Activity Activity: increase activity as tolerated Diet: advance to your usual diet, diabetic diet, low salt diet Hospital course: Ms. Graham is a 60 year old female patient with a history of coronary artery disease, chronic kidney disease, type 2 diabetes mellitus presented to the ER at [place] with complaints of tongue swelling and difficulty breathing. Symptoms started when the patient was sleeping. She was evaluated in the ER and given Solu-Medrol, Benadryl and Pepcid with improvement in her symptoms. She was then transferred here for monitoring. Her symptoms continued to improve and this morning she does not have any more symptoms. She is doing well from that standpoint. She was on lisinopril at home. This medication has now been stopped. She will instead be started on ARB. She also has chronic kidney disease and would benefit from referral to nephrology. Renal function is slightly elevated from baseline. I am also stopping her hydrochlorothiazide given her poor renal function. She also has chronic anemia and her hemoglobin levels are around her baseline. She most likely has underlying iron deficiency and will be placed on iron supplements. She was offered colonoscopy but patient does not wish to have this procedure performed either inpatient or outpatient. She understands the risks of this decision. Patient is also on Plavix for coronary artery disease and CABG increasing the risk of GI bleed. For now, the patient will be discharged on prednisone taper. Her blood sugars have been elevated due to use of steroids. She is advised to increase her range of insulin regimen accordingly. She will follow-up with her primary care provider for further management. - Time Spent with Patient Total time spent providing and/or coordinating discharge services: Greater than 30 minutes (40 min) - Constitutional Vitals: Temp Pulse Resp BP Pulse Ox 97.6 F 81 18 133/81 94 07/03/16 07:40 07/03/16 07:40 07/03/16 07:40 07/03/16 07:40 07/03/16 07:40 General appearance: Present: cooperative, A&O X 3, pleasant, obese, answers questions appropriately - Eye Eye exam: Present: EOMI, PERRL, conjuntiva pink, sclera anicteric - ENT ENT exam: Present: mucous membranes moist, normal exam - Respiratory Respiratory exam: Present: CTAB. Absent: accessory muscle use, rales, rhonchi, wheezes - Cardiovascular Cardiovascular exam: Present: RRR, +S1, +S2. Absent: diastolic murmur, gallop, rubs, systolic murmur - GI/Abdominal GI/Abdominal exam: Present: normal bowel sounds, soft, no peritoneal signs. Absent: distended, tenderness - Attending Attestation This document has been at least partially created by [employer] recognition technology by Dr. Weiss. Errors in grammar, wording or other phrases may exist. If errors are found after the documentation is signed, they will be addressed individually in the addendum section of this document when appropriate.
[2016-07-03] MEDS ORDERED: Fenofibrate 54 MG TABLET PO SCH (09:00)
[2016-07-03] MEDS: Insulin DETEMIR 100 UNIT/ML X5UNITS SQ SCH (09:34)
--- NOTE | 2016-07-03 12:01 | Electrocardiograph Report ---
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
[2016-07-03 12:34] VITALS: BP 150/88
== END 2016-07-03 15:50 | disposition home or self-care (01) ==
LOC: ICNU → SUATTDRO 08:02 → 3ANU 10:01
PROVIDERS: ADMIT Internal Medicine; ATTEND Internal Medicine

== ENCOUNTER 2016-07-11 06:09 | Inpatient (IN) ==
[2016-07-11] MEDS ORDERED: Naloxone 0.4 MG/ML INJ IVP PRN (08:33)
[2016-07-11] MEDS ORDERED: Acetaminophen 325 MG TABLET PO PRN (08:33)
[2016-07-11] MEDS ORDERED: Ondansetron 4 MG/2 ML VIAL IVP PRN (08:33)
[2016-07-11] MEDS ORDERED: D5% in Water 1,000 ML IVC PRN (08:36)
[2016-07-11] MEDS ORDERED: *HR* Dextrose 50 % in Water (Syg) 50 ML SYRINGE IVP PRN (08:36)
[2016-07-11] MEDS ORDERED: Dextrose Gel 15 GM PO PRN ×2 (08:36)
[2016-07-11] MEDS ORDERED: 0.9 % Sodium Chloride 1,000 ML IVC SCH ×2 (08:45→13:30)
--- NOTE | 2016-07-11 09:06 | Internal Med History&Physical ---
Date of Encounter: 07/11/16 Time of Encounter: 09:04 Assessment and Plan (1) Acute on chronic respiratory failure with hypoxia Current visit: Yes Status: Acute Secondary to multiple reasons including multifocal pneumonia, hemoptysis, sepsis. Patient is currently maintaining her airway, continue supplemental oxygen by nasal cannula. Closely monitor respiratory status, patient is high risk of decompensation and may require mechanical intubation if her hemoptysis worsens or compromises her airway. She is full code (2) Sepsis Current visit: Yes Status: Acute Patient admits sepsis criteria with tachycardia, leukocytosis with toxic granulations, and a pulmonary source of infection. Her lactate is within normal limit. She is afebrile. Blood pressure has been normal limits. Blood cultures not drawn at referral ER. We will send stat blood culture 2, sputum culture stat Patient received 1 dose of levofloxacin from [facility]. Patient with penicillin allergy, source of sepsis is HCAP We will continue levofloxacin, we will add aztreonam and vancomycin, for triple coverage Pharmacy to dose vancomycin. Follow sputum and blood culture De-escalate antibiotics prn Patient is high risk due to diagnosis of sepsis, hemoptysis, acute on chronic respiratory failure, use of vancomycin which needs close monitoring. Qualifiers: Sepsis type: sepsis due to unspecified organism Qualified Code(s): A41.9 - Sepsis, unspecified organism (3) Pneumonia Current visit: Yes Status: Acute Bilateral, multifocal pneumonia with hemoptysis. Since patient culture stat, and blood cultures tach. Patient with history of heavy tobacco use in the past We will obtain stat chest CT scan. Low threshold for pulmonary consultation depending on results of CT scan Qualifiers: Pneumonia type: due to unspecified organism Laterality: right Lung location: upper lobe of lung Qualified Code(s): J18.1 - Lobar pneumonia, unspecified organism (4) Atrial fibrillation with rapid ventricular response Current visit: Yes Status: Suspected Patient was suspected atrial fibrillation with rapid ventricular response. Patient denies prior knowledge or diagnoses of atrial fibrillation. TSH is within normal limit A. fib with RVR possibly due to demand ischemia from hypoxia. Obtain stat EKG. and Echocardiogram Consult Cardiology Hold off on Anticoagulation Due To Roberto Hemoptysis for Now. (5) Elevated troponin Current visit: Yes Status: Acute Elevated troponin 0.05 Patient with chest pain obtain echocardiogram and consult cardiology. 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 transplanted heart: [place] heart Associated angina: without angina Qualified Code(s): I25.810 - Atherosclerosis of coronary artery bypass graft(s) without angina pectoris (8) Hyperlipidemia Current visit: Yes Status: Chronic Continue home meds Qualifiers: Hyperlipidemia type: unspecified Qualified Code(s): E78.5 - Hyperlipidemia , unspecified (9) Hypertension Current visit: Yes Status: Chronic Patient is unsre of her home meds She had angioedema to Lisinopril recently Start Cardizem po and titrate as needed Resume home meds as appropriate when confirmed Qualifiers: Hypertension type: essential hypertension Qualified Code(s): I10 - Essential (primary) hypertension (10) Rheumatoid arthritis Current visit: Yes Status: Chronic Qualifiers: Rheumatoid arthritis location: unspecified site Rheumatoid factor presence : unspecified presence Qualified Code(s): M06.9 - Rheumatoid arthritis, unspecified (11) Chronic kidney disease, stage 3 Current visit: Yes Status: Chronic CR at baseline (12) Hemoptysis Current visit: Yes Status: Acute Possibly from pneumonia Patient with strong history of tobacco use , quit this year and multiple risk factors for PE Check CT scan stat Internal Medicine - H&P: HPI Chief complaint: Coughing up blood Admitted From: Home Plans for Post Hospital Care: Home History of present illness: Ms. Graham is a 60 year old female with past medical history of coronary artery disease status post CABG, CK 20, diabetes mellitus, chronic anemia, hypothyroid. Patient is seen and evaluated at the bedside. Patient reports being in her usual state of health until yesterday morning when she started coughing productive of phlegm. She did not look at the phlegm till she started feeling salt taste in her mouth and she decided to take a look. She reports having roberto hemoptysis with possible blood clots. At the time of review patient coughed up about 2 mL of roberto blood which seems to be mixed with sputum , as per patient's report it looked better than when she has been coughing since yesterday. She also reports having chest pain this morning which she said was relieved by aspirin that she received at the referral ER. She describes the chest pain as right-sided, pleuritic, and nonradiating. She also describes that she feels the chest pain feels like when she had an ME several years ago. She has been having worsening shortness of breath for about 2 days prior to presentation. She denies fever or chills, she denies recent travel, sick contacts, rhinorrhea, neck swelling, or palpitations. She denies recent prolonged immobilization, she denied recent long distance travel, she denies cough tenderness or swelling. She denies hematuria, hemoptysis or melena, hematochezia. She describes her urine is clear. She is chronic respiratory failure on home oxygen at 2 L/m at the time of review , she was on 3 L/m and saturating 90%. She denies fatigue, dizziness or any symptoms of worsening anemia. Her hemoglobin is at baseline. She presented to the emergency room at [facility] where she was found to be tachycardic with heart rates in the 130s and irregular said to be atrial fibrillation with rapid ventricular response. She was also found to have leukocytosis. White count 27,000 with toxic granulations. Workup at [facility] ER also revealed a normal PT/PTT and INR, her creatinine was 1.119 which is her baseline, hemoglobin is 9.2 which is her baseline except count is within normal limit. Her initial troponin at 5 AM this morning is 0.05. I do not see any EKG on chart. Chest x-ray shows bilateral multifocal pneumonia. On evaluation here she is on Cardizem drip at a rate of 10 mils per hour, heart rate has improved to about early 100s. Blood pressure is within normal limits, she is afebrile. The patient will be admitted for acute on chronic respiratory failure secondary to sepsis from multifocal pneumonia, age Due to recent hospitalization., Hemoptysis, A. fib with RVR, and elevated troponins. Coagulation panel is within normal limits, patient is only on aspirin and Plavix at home. We will defer anticoagulation with heparin for A. fib until evaluation by cardiology. Obtain stat echocardiogram and chest CT. Past Med Surg Social Fam HX - Past Medical History Medical history: atrial fibrillation, COPD, coronary artery disease, diabetes, GERD, hyperlipidemia, hypertension, myocardial infarction, RA, thyroid disease, TIA Psychiatric history: no psych history - Past Surgical History Surgical History: angioplasty/stent, coronary bypass (CABG), hysterectomy, thyroidectomy - Social History Smoking Status: Former smoker Packs per day: 1.5 Smokeless Tobacco Status: No Alcohol use: none Drug use: marijuana - Family History Mother Adopted: No Family Member Ethnicity: Non- Living Status: Hx Family Cardiac Disorders: Yes ( of ME) Hx Family Respiratory Disorders: No Hx Family Cancer: Yes (breast ca) Hx Family GI Disorders: No Hx Family Endocrine Disorder: No Hx Family Neuromuscular Disorders: No Hx Family Neurologic Disorders: No Hx Family HEENT Disorders: No Hx Family Autoimmune Disorders: No Brother Living Status: Still Living Hx Family Cardiac Disorders: Yes Hx Family Respiratory Disorders: Yes Hx Family Cancer: Yes Hx Family Endocrine Disorder: Yes Hx Family Medical Disorders: Yes Internal Medicine - H&P: Meds Amlodipine [Norvasc] 10 mg PO DAILY 06/10/15 [History] Clopidogrel [Plavix] 75 mg PO DAILY 06/10/15 [History] Cyclobenzaprine [Flexeril] 10 mg PO TID 06/10/15 [History] Gabapentin [Neurontin] 300 mg PO TID 06/10/15 [History] Insulin ASPART [NovoLOG] 21 unit SQ TIDWM 06/10/15 [History] Insulin Glargine [Lantus] 70 unit SQ HS 06/10/15 [History] Isosorbide DInitrate [Isosorbide Dinitrate] 30 mg PO BID 06/10/15 [History] Rosuvastatin [Crestor] 40 mg PO DAILY 06/10/15 [History] TraMADol [Ultram] 50 mg PO QID 06/10/15 [History] Levothyroxine Sodium [Levoxyl] 125 mcg PO DAILY 02/01/16 [History] Metformin [Glucophage] 1,000 mg PO BID 02/01/16 [History] BuPROPion [Wellbutrin] 100 mg PO BID 03/20/16 [History] Fenofibrate 54 mg PO DAILY 03/20/16 [History] Hydralazine HCl 100 mg PO BID 03/26/16 [History] Omeprazole [PriLOSEC] 20 mg PO DAILY 03/26/16 [History] CloNIDine HCl 0.2 mg PO BID #60 tablet 03/29/16 [Rx] Metoprolol [Lopressor] 100 mg PO BID 07/02/16 [History] Sennosides/Docusate Sodium [Senna Plus] 1 tab PO BID PRN 07/02/16 [History] Ferrous Sulfate 325 mg PO BIDWM #60 tablet. 07/03/16 [Rx] Losartan [Cozaar] 25 mg PO DAILY #30 tablet 07/03/16 [Rx] Allergies lisinopril Allergy (Verified 07/11/16 05:00) Swelling of Lip/Tongue/Throat Penicillins [PCN] Allergy (Verified 03/19/16 21:38) Hives All Systems PM: A 10-system review of systems was performed and is negative for pertinent findings except as documented above in the HPI. - Constitutional Constitutional: as per HPI - EENT Eyes: as per HPI Ears: as per HPI Nose, mouth and throat: as per HPI - Cardiovascular Cardiovascular ROS IM: as per HPI - Respiratory Respiratory: as per HPI - Gastrointestinal Gastrointestinal: as per HPI - Genitourinary Genitourinary: as per HPI - Musculoskeletal Musculoskeletal ROS IM: as per HPI, no numbness, no tingling - Integumentary Integumentary IM: as per HPI - Neurological Neurological ROS: as per HPI - Hematologic/Lymphatic Hematologic/Lymphatic: as per HPI - Constitutional Vitals: Temp Resp BP 98.2 F 16 150/70 07/11/16 07:50 07/11/16 07:50 07/11/16 07:50 Exam: VSS-HR 90-102, O2sat on 3L O2 90%, RR 20. Gen: Speaks full sentences, mild respiratory distress, coughed up roberto hemoptysis, seen at bedside, not toxic looking HEENT: Moist oral mucosa, SOCRATES, no sclera icterus Chest: Bilateral rhonhci, R>>>L. NO wheezing at time of exam Heart: S1, S2, Irregular, no m/g/r Abdomen: Soft, obese, not tendr Extremities: No pedal edema, equal pulses bilaterally Psych: Calm, normal mood, affect. Internal Med - H&P Results - Labs CBC & Chem 7: 07/11/16 09:07
[2016-07-11 09:19] LABS: Basophils # 0.1 K/mcL (0.0-0.2); Basophils % 0.2 %; Eosinophils # 0.1 K/mcL (0.0-0.6); Eosinophils % 0.3 %; Hematocrit 27.3 % (35.3-44.9); Hemoglobin 8.3 g/dL (11.5-15.4); Immature Granulocytes % 3.7 % (0-4); Lymphocytes # 2.8 K/mcL (0.6-4.6); Lymphocytes % 11.5 %; Mean Corpuscular HGB Conc 30.4 g/dL (31.6-35.5); Mean Corpuscular Hemoglobin 24.9 pg (28.0-33.3); Mean Corpuscular Volume 81.7 fL (83.0-100.0); Mean Platelet Volume 10.1 fL (9.4-12.4); Monocytes # 0.9 K/mcL (0.0-1.3); Monocytes % 3.7 %; Neutrophils # 19.9 K/mcL (1.6-8.9); Nucleated Red Blood Cells 0.4 /100 WBC (0); Platelet Count 306 K/mcL (140-400); Red Blood Count 3.34 M/mcL (3.82-4.97); Red Cell Distribution Width 16.8 % (11.5-14.5); Segmented Neutrophils % 80.6 %
[2016-07-11] MEDS ORDERED: Vancomycin 1,250 MG in D5% in Water 250 ML IVPB SCH (10:00)
--- NOTE | 2016-07-11 10:55 | ECHO - Doppler Report ---
Echocardiogram Name: Norah Graham Date of Study: 07/11/2016 Date: 1955 Ht: 64.0 in Medical Record#: [id number] Age: 60 Wt: 194.0 lb Gender: Female BSA: 1.93 Order #: [id number] Location: [facility] Room #: [id number] Reading Physician: César Hankins MD, [facility] Child Welfare Specialist: Roberto Munson RN Ordering Physician: Adal Smith MD Primary Physician: Aliyah Prado CNP Indications: Arrhythmia Impressions: LVEF 60-65%. There is hypokinesis of the basal inferior wall. Mild-moderate concentric left ventricular hypertrophy. Indeterminate diastolic function due to atrial fibrillation. Normal right ventricular size and function. Severely dilated left atrium. Mild mitral regurgitation. Unable to estimate RVSP due to lack of TR jet. Left Ventricular Wall Motion: Rest Echo Findings The basal inferior wall was hypokinetic. All other wall segments showed normal motion. Findings: Study Quality * Technically adequate exam. ECG Findings * Atrial fibrillation. Left Ventricle * LVEF 60-65%. There is hypokinesis of the basal inferior wall. * Mild-moderate concentric left ventricular hypertrophy. * Indeterminate diastolic function due to atrial fibrillation. Right Ventricle * Normal right ventricular size and function. Left Atrium * Severely dilated left atrium. Right Atrium * Normal right atrial size. Aorta * Normally sized aortic root. Pericardium * There is no pericardial effusion present. IVC * The IVC is not dilated. Aortic Valve * Aortic valve not well visualized. Appears trileaflet with mild sclerosis. * No aortic stenosis. * No aortic regurgitation. Mitral Valve * Mild mitral annular calcification * No mitral stenosis. * Mild mitral regurgitation. Pulmonic Valve * Pulmonic valve not well visualized. * No pulmonic stenosis. * Trace pulmonic regurgitation. Tricuspid Valve * Tricuspid valve not well visualized. * No tricuspid stenosis. * Trace tricuspid regurgitation. * Unable to estimate RVSP due to lack of TR jet. History Hypertension Diabetes Hypercholesteremia Years 10 Packs 1.5 Family History of CAD History of CAD/PTCA Myocardial Infarction Coronary Artery Bypass Graft Congestive Heart Failure 03/26/2016 a Previous Echo was performed. Measurements: BP: 150/ 70 2D Normal Values RVIDd: 3.30 cm IVSd: 1.40 cm 0.6 - 1.0 cm LVIDd: 4.90 cm 3.7 - 5.6 cm LVPWd: 1.30 cm 0.6 - 1.1 cm LVIDs: 3.20 cm 1.5 - 3.6 cm AO: 2.60 cm < 4.0 cm LA volume: 95 Updated by César Hankins MD, [facility] on 07/11/2016 10:50:55 AM electronically signed on 07/11/2016 10:51:27 AM with status of Final Wall Motion [place]: 1=Normal, 2=Hypokinesis, 3=Akinesis, 4=Dyskinesis, 5=Aneurysmal, 6=Hyperkinetic, X=Not Visualized (Blank)=Missing
[2016-07-11] MEDS: Aztreonam 1,000 MG in D5% in Water (Mini-Bag+) 100 ML IVPB SCH ×3 (11:08→22:02)
[2016-07-11] MEDS: Vancomycin 1,250 MG in D5% in Water 250 ML IVPB SCH (11:12)
[2016-07-11] MEDS: *HR* Morphine 2 MG/ML SYRINGE IVP PRN (11:12)
[2016-07-11] MEDS ORDERED: Budesonide/Formoterol 160/4.5 MDI IH SCH (12:30)
[2016-07-11] MEDS ORDERED: Levalbuterol Neb 1.25 MG/3 ML IH PRN ×2 (12:34→22:06)
[2016-07-11 13:05] LABS: Hemoglobin A1C 7.6 %
[2016-07-11] MEDS ORDERED: Tetracaine/Benzocaine/Butamben 200MG/SPRAY (100SPY/BOT) MM ONE (13:29)
[2016-07-11] MEDS ORDERED: Albuterol 2.5 MG/3 ML NEBULIZER IH ONE (13:29)
[2016-07-11] MEDS ORDERED: *HR* EPINEPHrine 1 MG/10 ML SYRINGE INTRATRACH PRN (13:29)
[2016-07-11] MEDS ORDERED: Lidocaine Viscous Oral Soln 15 ML SOLUTION MM ONE (13:29)
[2016-07-11] MEDS ORDERED: *HR* FentaNYL (PF) 100 MCG/2 ML VIAL ONE (13:35)
[2016-07-11] MEDS ORDERED: *HR* Midazolam HCl 5 MG/5 ML VIAL IVP ONE (13:35)
[2016-07-11] MEDS: *HR* Midazolam HCl 5 MG/5 ML VIAL IVP PRN ×2 (13:52→13:57)
[2016-07-11] MEDS: *HR* FentaNYL (PF) 100 MCG/2 ML VIAL IVP PRN ×2 (13:52→13:54)
--- NOTE | 2016-07-11 14:04 | Event Note ---
Date of Encounter: 07/11/16 Time of Encounter: 14:[address] with suspected alveolar hge. Call made to Dr. Hector Troponin continues to be elevated, patient with active hemoptysis, unable to anticoagulate, cardiology has been consulted Patient is still protecting her airway.
--- NOTE | 2016-07-11 14:05 | Cardiology Consult Note ---
Addendum entered and electronically signed by Con Vogt CNP 07/11/16 14:40: 5. Hypertensive urgency BP 180s/100s currently. Will resume home Clonidine and order PRN IV Hydralazine. Original Note: Date of Encounter: 07/11/16 Time of Encounter: 14:03 Assessment and Plan (1) Atrial fibrillation with rapid ventricular response Current Visit: Yes Status: Acute A-Fib with RVR in setting of PNA, sepsis, respiratory failure. Pt was started on Cardizem gtt, since coverted to PO Cardizem 60mg Q8 hours. HR fluctuating at bedside 80s-100s. If rate controlled tomorrow, switch to long acting cardizem cd. Echo EF 60-65%, severely dilated left atrium, mild MR. K 3.7. Check Mag. TSH 03/2016 1.045. Pt reports being told in the past she had A-Fib, but I see no prior documentation of this. CHADSVASC score 4 (HTN, CAD, Female, DM). Unable to anticoagulate at this time to possible alveolar hemorrhage/hemoptysis. (2) Elevated troponin Current Visit: Yes Status: Acute Troponin 0.05, 0.28 in setting of PNA, acute on chronic respiratory failure, sepsis, possible alveolar hemorrhage, A-Fib with RVR. Likely secondary to demand ischemia, nondiagnostic for ACS. Echo with preserved EF 60-65%. Pt does admit to chest pain but in setting of above. Ischemic evaluation not warranted at this time. Recommend re-evaluation of chest pain as outpt once acute issues are treated/resolved. [facility] 2014 medical management was recommended without intervention. Recommend statin. Will not start ASA due to possible avealoar hemorrhage and will not start BB in setting of acute respiratory failure. (3) Coronary artery disease Current Visit: Yes Status: Chronic Hx of PCI and CABG x 3 in 2006. Most recent [facility] was at [place] 2014. Showed occluded RCA and occluded first obtuse marginal branch, Sequential CARTER to LAD and first diagonal branch was patent, but there was a competing flow. SVG to second obtuse marginal branch was patent. She was advised to continue medical therapy. There were collaterals noted from the LAD to the distal RCA. Hold ASA and Plavix in setting of possible alveolar hemorrhage. Hold BB due to acute on chronic respiratory failure. Order statin. Qualifiers: Coronary Disease-Associated Artery/Lesion type: bypass graft [place] vs. transplanted heart: rincon heart Associated angina: without angina Qualified Code(s): I25.810 - Atherosclerosis of coronary artery bypass graft(s) without angina pectoris (4) Tobacco abuse Current Visit: No Status: Chronic Smoking cessation counseling given. Discussion w patient/family: The assessment and plan as outlined above was discussed with the patient and/or family members who expressed understanding and agreement. All questions were answered. Thank you for involving us in the care of your patient. Please call with any questions. I will discuss all the above with Dr. Jaron Maurer and make changes as necessary. History of Present Illness Consult date: 07/11/16 Requesting physician: Russel Cedeño Consult reason: A-Fib RVR, chest pain, elevated troponin Chief complaint: dyspnea, chest pain History of present illness: Ms. Graham is a 60 year old female with PMH significant for CAD s/p 3vCABG in 2006, tobacco use, HTN, HLD, DMII, chronic respiratory failure on home O2 who presented with roberto hemoptysis that started yesterday morning. She also reports having chest pain/pressure, right sided that was relieved by aspirin and nitro, nonradiating. She reports the chest pain felt similar to past anginal equivalent. She reports worsening dyspnea over the past week. Pt found to have PNA, sepsis. Chest CT shows possible alveolar hemorrhage--pulm consulted. Also found to be in A-Fib with RVR on presentation. She was converted from cardizem gtt to PO this AM, HR 80s-100s at bedside, fluctuating. Pt denies palpitations currently, but reports she had them on presentation. Reports being told she had A-Fib in the past, but I see no documentation of this in past cardio notes. Echo obtained EF 60-65%, hypokinesis of basal inferior wall. Mild-moderate concentric LVH, normal RV structure and function, severely dilated left atrium, mild MR. Troponins 0.05, 0.28. Previous CV testing: [facility] 2014 showed occluded RCA and occluded first obtuse marginal branch , Sequential CARTER to LAD and first diagonal branch was patent, but there was a competing flow. SVG to second obtuse marginal branch was patent. She was advised to continue medical therapy. There were collaterals noted from the LAD to the distal RCA. Past Med Surg Social Fam HX - Past Medical History Medical history: atrial fibrillation, COPD, coronary artery disease, diabetes, GERD, hyperlipidemia, hypertension, myocardial infarction, RA, thyroid disease, TIA Psychiatric history: no psych history - Past Surgical History Surgical History: angioplasty/stent, coronary bypass (CABG), hysterectomy, thyroidectomy - Social History Smoking Status: Former smoker Packs per day: 1.5 Smokeless Tobacco Status: No Alcohol use: none Drug use: marijuana - Family History Mother Adopted: No Family Member Ethnicity: Non- Living Status: Hx Family Cardiac Disorders: Yes ( of [place]) Hx Family Respiratory Disorders: No Hx Family Cancer: Yes (breast ca) Hx Family GI Disorders: No Hx Family Endocrine Disorder: No Hx Family Neuromuscular Disorders: No Hx Family Neurologic Disorders: No Hx Family HEENT Disorders: No Hx Family Autoimmune Disorders: No Brother Living Status: Still Living Hx Family Cardiac Disorders: Yes Hx Family Respiratory Disorders: Yes Hx Family Cancer: Yes Hx Family Endocrine Disorder: Yes Hx Family Medical Disorders: Yes Medications and Allergies Amlodipine [Norvasc] 10 mg PO DAILY 06/10/15 [History] Clopidogrel [Plavix] 75 mg PO DAILY 06/10/15 [History] Cyclobenzaprine [Flexeril] 10 mg PO TID 06/10/15 [History] Gabapentin [Neurontin] 300 mg PO TID 06/10/15 [History] Insulin ASPART [NovoLOG] 21 unit SQ TIDWM 06/10/15 [History] Insulin Glargine [Lantus] 70 unit SQ HS 06/10/15 [History] Isosorbide DInitrate [Isosorbide Dinitrate] 30 mg PO BID 06/10/15 [History] Rosuvastatin [Crestor] 40 mg PO DAILY 06/10/15 [History] TraMADol [Ultram] 50 mg PO QID 06/10/15 [History] Levothyroxine Sodium [Levoxyl] 125 mcg PO DAILY 02/01/16 [History] Metformin [Glucophage] 1,000 mg PO BID 02/01/16 [History] BuPROPion [Wellbutrin] 100 mg PO BID 03/20/16 [History] Fenofibrate 54 mg PO DAILY 03/20/16 [History] Hydralazine HCl 100 mg PO BID 03/26/16 [History] Omeprazole [PriLOSEC] 20 mg PO DAILY 03/26/16 [History] CloNIDine HCl 0.2 mg PO BID #60 tablet 03/29/16 [Rx] Metoprolol [Lopressor] 100 mg PO BID 07/02/16 [History] Sennosides/Docusate Sodium [Senna Plus] 1 tab PO BID PRN 07/02/16 [History] Ferrous Sulfate 325 mg PO BIDWM #60 tablet. 07/03/16 [Rx] Losartan [Cozaar] 25 mg PO DAILY #30 tablet 07/03/16 [Rx] Hydrochlorothiazide 25 mg PO DAILY 07/11/16 [History] Allergies lisinopril Allergy (Verified 07/11/16 05:00) Swelling of Lip/Tongue/Throat Penicillins [PCN] Allergy (Verified 03/19/16 21:38) Hives All Systems Review: A 10-system review of systems was performed and is negative for pertinent findings except as documented above in the HPI. - Cardiovascular Cardiovascular: as per HPI, chest pain at rest, chest pain with exertion, dyspnea at rest, dyspnea on exertion, leg edema, palpitations - Respiratory Respiratory: cough, dyspnea, hemoptysis Physical Examination Vital Signs, Last 4 Hours Temp Pulse Resp BP Pulse Ox 07/11/16 14:00 93 22 186/110 78 07/11/16 13:55 106 22 188/89 80 07/11/16 13:50 87 22 189/79 85 07/11/16 13:35 97.7 F 93 22 172/103 87 07/11/16 13:30 97.7 F 93 22 106/56 85 07/11/16 12:07 90 07/11/16 11:39 98.0 F 102 17 159/67 90 Vital Signs Temp Pulse Resp BP Pulse Ox 07/11/16 14:00 93 22 186/110 78 07/11/16 13:55 106 22 188/89 80 07/11/16 13:50 87 22 189/79 85 07/11/16 13:35 97.7 F 93 22 172/103 87 07/11/16 13:30 97.7 F 93 22 106/56 85 07/11/16 12:07 90 07/11/16 11:39 98.0 F 102 17 159/67 90 07/11/16 07:50 98.2 F 16 150/70 Intake and Output 05/08/17 05/09/17 05/09/17 23:59 07:59 15:59 Intake Total 350 / 350 Balance 350 / 350 Intake: IV Fluids 350 / 350 Azactam 1,000 MG In 100 / 100 Dextrose 5% (Minibag+) 100 ML 100 ML @ 200 mls/ hr IVPB Q6H [facility] Rx#: [id number] Vancocin 1,250 MG In 250 / 250 Dextrose 5% 250 ML @ 166. 67 mls/hr IVPB Q24H [facility] Rx#:[id number] Oral 0 / 0 Other: Meal Lunch Percent of Meal Consumed 0% Weight 88.4 kg Blood Glucose* 257 Patient Weight 07/11/16 23:59 Weight 88.4 kg General: Conversant, Other (conversational dyspnea) HEENT: Atraumatic, Normocephaly, Mucus Membranes Moist Neck: Normal carotid pulses Cardiac: Other (irregularly irregular) Lungs: Other (rhonchi) Neuro: Alert and responsive, No focal deficits noted Abdomen: Soft, Non-Tender Skin: No rashes noted on visualized skin Musculoskeletal: No Chest Wall Tenderness Extremities: No Clubbing, No Cyanosis, No Edema, Normal Pulses Results 07/11/16 09:07 Lab Results 07/11/16 07/11/16 09:07 12:05 WBC 24.7 H Hgb 8.3 L Hct 27.3 L Plt Count 306 Troponin I 0.28 H* Short CBC 07/11/16 Range/Units 09:07 WBC 24.7 H (4.3-11.1) K/mcL Hgb 8.3 L (11.5-15.4) g/dL Hct 27.3 L (35.3-44.9) % Plt Count 306 (140-400) K/mcL Neutrophils # 19.9 H (1.6-8.9) K/mcL Cardiac Enzymes 07/11/16 Range/Units 12:05 Troponin I 0.28 H* (0-0.03) ng/mL Impressions Chest CT 07/11/16 08:59 IMPRESSION: 1. Extensive bilateral ground-glass density with peripheral nodular appearing airspace disease is nonspecific. Findings may reflect postinfectious/inflammatory etiology versus alveolar hemorrhage. 2. Stable left upper lobe pulmonary nodule 1.3 x 1.2 cm. Refer to Fleischner criteria follow-up. RECOMMENDATIONS: Fleischner Society guidelines for follow-up and management of incidentally detected pulmonary nodules: Single Solid Nodule: Nodule size less than 6 mm In a low-risk patient, no routine follow-up. In a high-risk patient, optional CT at 12 months. Nodule size equals 6-8 mm In a low-risk patient, CT at 6-12 months, then consider CT at 18-24 months. In a high-risk patient, CT at 6-12 months, then CT at 18-24 months. Nodule size greater than 8 mm In a low-risk patient, consider CT, PET/CT, or tissue sampling at 3 months. In a high-risk patient, consider CT, PET/CT, or tissue sampling at 3 months. Multiple Solid Nodules: Nodule size less than 6 mm In a low-risk patient, no routine follow-up. In a high-risk patient, optional CT at 12 months. Nodule size equals 6-8 mm In a low-risk patient, CT at 3-6 months, then consider CT at 18-24 months. In a high-risk patient, CT at 3-6 months, then CT at 18-24 months. Nodule size greater than 8 mm In a low-risk patient, CT at 3-6 months, then consider CT at 18-24 months. In a high-risk patient, CT at 3-6 months, then CT at 18-24 months. - Low risk patients include individuals with minimal or absent history of smoking and other known risk factors. - High risk patients include individuals with a history or smoking or known risk factors. Radiology 2017 http://pubs.rsna.org/doi/full/10.1148/radiol.5858429299 D/ / 07/11/2016 10:20:39 Abraham Islas MD / tomi Interpreting Provider: Abraham Islas MD Active Medications Acetaminophen (Tylenol) 650 mg PO Q6HR PRN PRN Reason: Mild Pain (1-3) Stop: 01/10/17 08:34 Acetaminophen/Hydrocodone Bitart ([place] 5-325 Mg) 1 tab PO Q4HR PRN PRN Reason: Moderate Pain (4-6) Stop: 01/10/17 08:34 Dextrose/Water (Dextrose 50% (Syg)) 25 ml IVP AD PRN PRN Reason: Hypoglycemia Stop: 01/10/17 08:37 Diltiazem HCl (Cardizem) 60 mg PO Q8H [facility] Stop: 01/10/17 10:01 Last Admin: 07/11/16 11:09 Dose: 60 mg Glucagon (Glucagen) 1 mg IM ONCE PRN PRN Reason: Hypoglycemia Stop: 01/10/17 08:37 Glucose (Gluctose) 15 gm PO ONCE PRN PRN Reason: Hypoglycemia Stop: 01/10/17 08:37 Glucose (Gluctose) 30 gm PO ONCE PRN PRN Reason: Hypoglycemia Stop: 01/10/17 08:37 Heparin Sodium (Porcine) (Heparin) 5,000 unit SQ Q8HR [facility] Stop: 01/10/17 16:01 Sodium Chloride (0.9 % Sodium Chloride) 1,000 mls @ 100 mls/hr IVC .Q10H [facility] Stop: 07/11/16 18:44 Last Admin: 07/11/16 11:08 Dose: 100 mls/hr Dextrose (Dextrose 5%) 1,000 mls @ 100 mls/hr IVC .Q10H PRN PRN Reason: HYPOGLYCEMIA Stop: 01/10/17 08:37 Levofloxacin/Dextrose (Levaquin Premix 750mg/150 Ml) 750 mg in 150 mls @ 100 mls/hr IVPB Q48H [facility] PRN Reason: Protocol Stop: 01/12/17 06:01 Aztreonam 1,000 mg/ Dextrose 100 mls @ 200 mls/hr IVPB Q6H [facility] Stop: 01/10/17 10:01 Last Infusion: 07/11/16 12:46 Dose: Infused Vancomycin HCl 1,250 mg/ (Dextrose) 250 mls @ 166.67 mls/hr IVPB Q24H [facility] Stop: 01/10/17 11:01 Last Infusion: 07/11/16 12:47 Dose: Infused Insulin Detemir (Levemir) 14 unit 0.15 unit/kg (14 unit) SQ HS [facility] Stop: 01/10/17 21:01 Insulin Human Lispro (Humalog) 4 units 0.05 units/kg (4 units) SQ TIDWM [facility] Stop: 01/10/17 12:01 Insulin Human Lispro (Humalog) 0 units SQ TIDAC [facility] PRN Reason: Protocol Stop: 01/10/17 11:31 Insulin Human Lispro (Humalog) 0 units SQ HS [facility] PRN Reason: Protocol Stop: 01/10/17 21:01 Levothyroxine Sodium (Synthroid) 125 mcg PO DAILY@0630 [facility] Stop: 01/11/17 06:31 Morphine Sulfate (Morphine Sulfate) 2 mg IVP Q4HR PRN PRN Reason: Severe Pain (7-10) Stop: 01/10/17 08:34 Last Admin: 07/11/16 11:12 Dose: 2 mg Naloxone HCl (Narcan) 0.4 mg IVP Q2MIN PRN PRN Reason: Opioid Reversal Stop: 01/10/17 08:34 Ondansetron HCl (Zofran) 4 mg IVP Q8HR PRN PRN Reason: Nausea And Vomiting Stop: 01/10/17 08:34 - Imaging and Cardiology Echo: report reviewed Cardiac cath: report reviewed - EKG Interpretation EKG results cardiology: personally reviewed (A-Fib RVR rate 130s.), other (24 hour tele AVG HR 101, A-Fib) Consult Discharge Plan - Plan Referrals: Aliyah Prado, MERCHANDISE MARKER [Primary Care Provider] -
--- NOTE | 2016-07-11 14:20 | Pulmonology Consult Note ---
<Vincenzo Rhodes - Last Filed: 07/11/16 16:06> Date of Encounter: 07/11/16 Time of Encounter: 14:19 Assessment and Plan (1) Diffuse pulmonary alveolar hemorrhage Current Visit: Yes Status: Acute Bronchoscopy was performed by Dr. Quigley due to hemoptysis with abnormal chest x-ray and abnormal CT scan at the chest Fresh blood was found in the tracheal bronchial tree and return of blood-tinged washings to suggest pulmonary hemorrhage - BAL was performed in the the RLL and sent for culture and cytology hold ASA and plavix differential for alveolar hemorrhoage includes infectious, inflammatory, autoimmune, and vasculitis - serologies for CORINNE, CRP, ANCA ordered for follow up - strep and legionella antigen ordered platelets on hold for possible transfusion for qualitatively defective platelets if hemoptysis or bleeding continues NPO except ice chips (2) Acute on chronic respiratory failure with hypoxia Current Visit: Yes Status: Acute secondary to multiple factors including alveolar hemorrhage, multifocal pneumonia, sepsis, and hemoptysis Symbicort and Xopenex Solumedrol 80mg q8hr BiPAP ordered PRN currently 2L NC satting at 99% in no acute distress and normal effort patient is currently maintaining her airway but will closely monitor respiratory status as she is high risk for decompensation and may require mechanical intubation to protect airway (3) Hemoptysis Current Visit: Yes Status: Acute bronchoscopy and CTA reveals alveolar hemorrhage (4) Sepsis Current Visit: Yes Status: Acute meets sepsis criteria with tachycardia and leukocytosis and likely pulmonary source of infection - she is currently in atrial flutter with normal ventricular response 90-100s - leukocytosis likely due to steroids and reactive response she is afebrile with normal lactate and stable BPs blood cultures x2 collected and pending continue Levofloxacin, Aztronam and Vancomycin (currently day 1) pharmacy to dose Vancomycin Qualifiers: Sepsis type: sepsis due to unspecified organism Qualified Code(s): A41.9 - Sepsis, unspecified organism (5) Pneumonia Current Visit: No Status: Acute alveolar hemorrhage may be secondary to a bilateral, multifocal pneumonia will continue to treat with antibiotics, Levofloxacin, Vancomycin, and Aztreonem Qualifiers: Pneumonia type: due to unspecified organism Laterality: bilateral Lung location: lower lobe of lung Qualified Code(s): J18.9 - Pneumonia, unspecified organism (6) Anemia Current Visit: Yes Status: Acute Hgb is currently 8.3 and remains stable multifactorial likely chronic but worsened with alveolar hemorrhage will continue to closely monitor H/H transfusion as needed HCV is low to suggest possible iron deficiency Qualifiers: Anemia type: unspecified type Qualified Code(s): D64.9 - Anemia, unspecified (7) Diabetes mellitus type 2, uncontrolled Current Visit: Yes Status: Chronic uncontrolled IDDM Insulin sliding scale for glucose control NPO diet tonight and continue to monitor airway Qualifiers: Diabetes mellitus complication status: with neurologic complications Diabetes mellitus complication detail: with unspecified neuropathy Diabetes mellitus buttermaker insulin use: with buttermaker use Qualified Code(s): E11.40 - Type 2 diabetes mellitus with diabetic neuropathy, unspecified; E11.65 - Type 2 diabetes mellitus with hyperglycemia; Z79.4 - long term acute care registered nurse (current) use of insulin (8) Atrial fibrillation with rapid ventricular response Current Visit: Yes Status: Acute cardiology has been consulted, will continue to follow recommendations continue PO Cardizem for rate control, currently HR 90-100s hold off on AC due to hemoptysis (9) Coronary artery disease Current Visit: Yes Status: Chronic hold ASA and plavix cardiology has been consulted for elevated troponin Qualifiers: Coronary Disease-Associated Artery/Lesion type: bypass graft [place] vs. transplanted heart: [place] heart Associated angina: without angina Qualified Code(s): I25.810 - Atherosclerosis of coronary artery bypass graft(s) without angina pectoris (10) Elevated troponin Current Visit: Yes Status: Acute elevated troponin cardiology has been consulted and is on board, will follow recommendations (11) DVT prophylaxis Current Visit: No Status: Acute PIPE COVERER: patient is alert and oriented, follows commands Pulmonary: diffuse rhonchi bilaterally, scheduled bronchodilators and solumedrol , she is maintaining airway with good oxygen saturation on supplemental nasal cannula, Bronch showed alevolar hemorrhage, placed NPO overnight and will closely monitor airway Cardiovascular: Atrial fibrillation with normal ventricular response 90-100s, on Cardizem, BPs remain stable GI: GI prophylaxis per routine Heme: DVT prophylaxis, ICDs due to hemoptysis and alveolar hemorrhage ID: continue antibiotics and plan to de-escalate Renal: no issues Endocrine: blood glucose monitored, on ISS Lines: all lines checked without evidence of infections Skin: ICU skin care per protocol History of Present Illness Consult date: 07/11/16 Requesting physician: Adal Smith Reason for consult: abnormal CXR/CT (alveolar hemorrhage), other (hemoptysis) Chief complaint: hemoptysis History of present illness: 60-year-old female history of CAD s/p CABG, atrial fibrillation, insulin- dependent diabetes mellitus, COPD, chronic anemia, rheumatoid arthritis admitted for hemoptysis and sepsis secondary to pneumonia and acute on chronic respiratory failure. Chest CT performed 07/11 revealed extensive bilateral groundglass density suggestive of postinfectious/inflammatory etiology versus possible alveolar hemorrhage. Pulmonology was consulted for bronchoscopy and lavage. Patient reports 2 days of productive cough and hemoptysis. Reports shortness of breath as well as right-sided chest pain. Initial Troponin 0.05 and elevated to 0.28. Cardiology is on board. She denies any fevers, chills, recent travel, sick contacts, blood clots, or incarceration. History of hysterectomy at age 28. Denies estrogen use. Takes Aspirin and Plavix for CAD. Denies any abdominal pain, nausea, vomiting, bloody stools, or black tarry stools. History of recent hospitalization last week for angioedema, no intubation was required. Hospital stay of 2 days. Reports aches in her upper and lower extremities as well as dry skin which has been ongoing for several months, referred to see Dr. Cai after a positive CORINNE. Reports history of rheumatoid arthritis. Her PCP is Lindsay Mcclain CNP. Past Med Surg Social Fam HX - Past Medical History Medical history: atrial fibrillation, COPD, coronary artery disease, diabetes, GERD, hyperlipidemia, hypertension, myocardial infarction, RA, thyroid disease, TIA Psychiatric history: no psych history - Past Surgical History Surgical History: angioplasty/stent, coronary bypass (CABG), hysterectomy, thyroidectomy - Social History Smoking Status: Former smoker Packs per day: 1.5 Smokeless Tobacco Status: No Alcohol use: none Drug use: marijuana - Family History Mother Adopted: No Family Member Ethnicity: Non- Living Status: Hx Family Cardiac Disorders: Yes ( of [place]) Hx Family Respiratory Disorders: No Hx Family Cancer: Yes (breast ca) Hx Family GI Disorders: No Hx Family Endocrine Disorder: No Hx Family Neuromuscular Disorders: No Hx Family Neurologic Disorders: No Hx Family HEENT Disorders: No Hx Family Autoimmune Disorders: No Brother Living Status: Still Living Hx Family Cardiac Disorders: Yes Hx Family Respiratory Disorders: Yes Hx Family Cancer: Yes Hx Family Endocrine Disorder: Yes Hx Family Medical Disorders: Yes Medications and Allergies Amlodipine [Norvasc] 10 mg PO DAILY 06/10/15 [History] Clopidogrel [Plavix] 75 mg PO DAILY 06/10/15 [History] Cyclobenzaprine [Flexeril] 10 mg PO TID 06/10/15 [History] Gabapentin [Neurontin] 300 mg PO TID 06/10/15 [History] Insulin ASPART [NovoLOG] 21 unit SQ TIDWM 06/10/15 [History] Insulin Glargine [Lantus] 70 unit SQ HS 06/10/15 [History] Isosorbide DInitrate [Isosorbide Dinitrate] 30 mg PO BID 06/10/15 [History] Rosuvastatin [Crestor] 40 mg PO DAILY 06/10/15 [History] TraMADol [Ultram] 50 mg PO QID 06/10/15 [History] Levothyroxine Sodium [Levoxyl] 125 mcg PO DAILY 02/01/16 [History] Metformin [Glucophage] 1,000 mg PO BID 02/01/16 [History] BuPROPion [Wellbutrin] 100 mg PO BID 03/20/16 [History] Fenofibrate 54 mg PO DAILY 03/20/16 [History] Hydralazine HCl 100 mg PO BID 03/26/16 [History] Omeprazole [PriLOSEC] 20 mg PO DAILY 03/26/16 [History] CloNIDine HCl 0.2 mg PO BID #60 tablet 03/29/16 [Rx] Metoprolol [Lopressor] 100 mg PO BID 07/02/16 [History] Sennosides/Docusate Sodium [Senna Plus] 1 tab PO BID PRN 07/02/16 [History] Ferrous Sulfate 325 mg PO BIDWM #60 tablet. 07/03/16 [Rx] Losartan [Cozaar] 25 mg PO DAILY #30 tablet 07/03/16 [Rx] Hydrochlorothiazide 25 mg PO DAILY 07/11/16 [History] Allergies lisinopril Allergy (Verified 07/11/16 05:00) Swelling of Lip/Tongue/Throat Penicillins [PCN] Allergy (Verified 03/19/16 21:38) Hives All Systems: A 10-system review of systems was performed and is negative for pertinent findings except as documented above in the HPI. Physical Examination Vital Signs: Vital Signs, Last 4 Hours Temp Pulse Resp BP Pulse Ox 07/11/16 14:00 93 22 186/110 78 07/11/16 13:55 106 22 188/89 80 07/11/16 13:50 87 22 189/79 85 07/11/16 13:35 97.7 F 93 22 172/103 87 07/11/16 13:30 97.7 F 93 22 106/56 85 07/11/16 12:07 90 07/11/16 11:39 98.0 F 102 17 159/67 90 General appearance: no acute distress, alert, other (initially in mild respiratory distress on BiPAP, now resting comfortably on NC) Eyes: nonicteric, other (pale conjunctiva) ENT: oropharynx dry Neck: supple Effort: normal, other Inspection: normal Auscultation: bilateral: rhonchi Cardiovascular: irregular rhythm Gastrointestinal: normoactive bowel sounds, soft, non-tender, non-distended Integumentary: normal Extremities: no edema, pink and warm, pulses normal, other (no edema or calf tenderness) Musculoskeletal: no deformities, ROM normal normal mental status, non-focal exam, pupils equal and round, motor strength normal and symmetric mood appropriate, affect normal Results - Laboratory Findings CBC and BMP: 07/11/16 09:07 Abnormal lab findings: Abnormal lab results WBC 24.7 K/mcL (4.3-11.1) H 07/11/16 09:07 RBC 3.34 M/mcL (3.82-4.97) L 07/11/16 09:07 Hgb 8.3 g/dL (11.5-15.4) L 07/11/16 09:07 Hct 27.3 % (35.3-44.9) L 07/11/16 09:07 MCV 81.7 fL (83.0-100.0) L 07/11/16 09:07 MCH 24.9 pg (28.0-33.3) L 07/11/16 09:07 MCHC 30.4 g/dL (31.6-35.5) L 07/11/16 09:07 RDW 16.8 % (11.5-14.5) H 07/11/16 09:07 Neutrophils # 19.9 K/mcL (1.6-8.9) H 07/11/16 09:07 Nucleated RBCs/100 WBC 0.4 /100 WBC (0) H 07/11/16 09:07 Hemoglobin A1c 7.6 % (-5.6) H 07/11/16 12:05 Troponin I 0.28 ng/mL (0-0.03) H* 07/11/16 12:05 - Diagnostic Findings Chest x-ray: report reviewed CT scan - chest: report reviewed - Clinical Findings Intake & Output: Intake & Output 07/10/16 07/11/16 07/11/16 23:59 07:59 15:59 Intake Total 350 / 350 Balance 350 / 350 Weight 88.4 kg Consult Discharge Plan - Plan Referrals: Aliyah Prado, [employer] [Primary Care Provider] - <Shelly Quigley - Last Filed: 07/11/16 20:07> Date of Encounter: 07/11/16 All Systems: A 10-system review of systems was performed and is negative for pertinent findings except as documented above in the HPI. Physical Examination Vital Signs: Vital Signs, Last 4 Hours Pulse Resp BP Pulse Ox 07/11/16 19:32 24 122/73 96 07/11/16 18:00 104 18 144/84 95 07/11/16 17:00 100 22 155/104 95 07/11/16 16:05 93 22 157/94 94 Results - Laboratory Findings CBC and BMP: 07/11/16 09:07 Abnormal lab findings: Abnormal lab results WBC 24.7 K/mcL (4.3-11.1) H 07/11/16 09:07 RBC 3.34 M/mcL (3.82-4.97) L 07/11/16 09:07 Hgb 8.3 g/dL (11.5-15.4) L 07/11/16 09:07 Hct 27.3 % (35.3-44.9) L 07/11/16 09:07 MCV 81.7 fL (83.0-100.0) L 07/11/16 09:07 MCH 24.9 pg (28.0-33.3) L 07/11/16 09:07 MCHC 30.4 g/dL (31.6-35.5) L 07/11/16 09:07 RDW 16.8 % (11.5-14.5) H 07/11/16 09:07 Neutrophils # 19.9 K/mcL (1.6-8.9) H 07/11/16 09:07 Nucleated RBCs/100 WBC 0.4 /100 WBC (0) H 07/11/16 09:07 POC Glucose 209 (58-89) H 07/11/16 14:19 Hemoglobin A1c 7.6 % (-5.6) H 07/11/16 12:05 Troponin I 0.37 ng/mL (0-0.03) H* 07/11/16 17:44 - Clinical Findings Intake & Output: Intake & Output 07/11/16 07/11/16 07/11/16 07:59 15:59 23:59 Intake Total 410 / 410 106 / 106 Balance 410 / 410 106 / 106 Weight 88.4 kg - Attending Attestation I examined this patient and my medical decision-making was reviewed with the EXTRUSION PROCESS OPERATOR/PA/Advanced Practice Nurse/Resident Physician. I agree with the documented findings, disposition and treatment plan as described except to the extent set forth below. Patient seen and examined. Labs, radiology, chart personally reviewed. Agree with resident's history and physical, assessment, plan with following comments: PIPE COVERER: Patient follows commands, Pulmonary: I was called to see patient for a consult and when I went to [facility], patient was examined with the RN presence and found her in acute hypoxic respiratory failure with moderate respiratory distress. I've instructed her not to eat for bronchoscopy because patient has significant hemoptysis and they way she describe it, more like massive hemoptysis. Patient was taken to endoscopy department and she was found to have pulmonary hemorrhage and suspect this could be either from side effects of medication (Plavix) or possible vasculitis. She will be on treated with systemic steroid and she was transferred to ICU because of the acute hypoxic respiratory failure and was place on NIV / and FIO2 100%. Cardiovascular: A. fib with acceptable rate control. GI: Nutrition per dietary and GI prophylaxis per routine Heme: DVT prophylaxis per routine. Mechanical due to hemorrhage ID: Continue antibiotics and plan to de-escalation Renal; urine out put and renal funtion reviewed Endorcine: blood glucose is monitored Lines: all lines checked and no evidence of infections Skin: skin care to prevent pressure ulcers per nursing routine care Explained to patient about the findings and patient will stay in ICU, if worsen , she will need to be intubated. I spent 40 min of Critical Care time with this patient. It involved decision making of high complexity to assess, manipulate, and support vital organ system failure and/or to prevent further life threatening deterioration of the patient' s condition. The time involved in the performance of separately reportable procedures was not counted toward critical care time.
[2016-07-11] MEDS ORDERED: *HR* EPINEPHrine 1 MG/10 ML SYRINGE ONE (14:29)
[2016-07-11] MEDS: Insulin LISPRO 300 UNITS/3 ML VIAL SQ SCH ×4 (14:49→17:52)
[2016-07-11] MEDS ORDERED: Dexmedetomidine HCl 400 MCG/100 ML MLS IVC ONE (14:53)
[2016-07-11] MEDS ORDERED: Dexmedetomidine HCl 400 MCG/100 ML MLS IVC SCH (15:00)
[2016-07-11] MEDS ORDERED: Calcium Gluconate 1,000 MG in D5% in Water 100 ML IVPB PRN (15:38)
[2016-07-11] MEDS ORDERED: Sodium Phosphate 30 MMOL in D5% in Water 100 ML IVPB PRN (15:38)
[2016-07-11] MEDS: cloNIDine HCl 0.1 MG TABLET PO SCH ×2 (15:49→21:01)
[2016-07-11] MEDS: Isosorbide MONOnitrate (24 HR) 60 MG TAB.ER.24H PO SCH (15:49)
[2016-07-11] MEDS ORDERED: MethylPREDNISolone 40 MG/ML VIAL IVP SCH (16:00)
[2016-07-11] MEDS ORDERED: *HR* Heparin 5,000 UNIT/ML VIAL SQ SCH (16:00)
[2016-07-11] MEDS: *HR* HYDROcodone/Acet 5/325 mg TABLET PO PRN ×2 (16:28→21:01)
[2016-07-11 16:49] LABS: Source of Body Fluid RLL BAL
[2016-07-11 20:15] LABS: Appearance of Body Fluid Cloudy (Clear); Volume of Body Fluid 22 mL
[2016-07-11] MEDS ORDERED: Insulin LISPRO 300 UNITS/3 ML VIAL SQ SCH (21:00)
[2016-07-11] MEDS ORDERED: Insulin DETEMIR 100 UNIT/ML X5UNITS SQ SCH (21:00)
[2016-07-11] MEDS: Budesonide/Formoterol 160/4.5 MDI IH SCH (21:05)
[2016-07-11] MEDS ORDERED: Levalbuterol Neb 1.25 MG/3 ML IH SCH (22:00)
[2016-07-11] MEDS: methylPREDNISolone 125 MG/2 ML VIAL IVP SCH (23:28)
[2016-07-12 01:17] LABS: Basophils % 0.1 %; Eosinophils # 0.1 K/mcL (0.0-0.6); Eosinophils % 0.4 %; Hematocrit 23.4 % (35.3-44.9); Hemoglobin 7.3 g/dL (11.5-15.4); Immature Granulocytes % 2.3 % (0-4); Lymphocytes # 1.6 K/mcL (0.6-4.6); Lymphocytes % 9.1 %; Mean Corpuscular HGB Conc 31.2 g/dL (31.6-35.5); Mean Corpuscular Hemoglobin 25.1 pg (28.0-33.3); Mean Corpuscular Volume 80.4 fL (83.0-100.0); Monocytes # 0.5 K/mcL (0.0-1.3); Monocytes % 2.6 %; Neutrophils # 15.1 K/mcL (1.6-8.9); Nucleated Red Blood Cells 0.2 /100 WBC (0); Platelet Count 269 K/mcL (140-400); Red Blood Count 2.91 M/mcL (3.82-4.97); Red Cell Distribution Width 17.1 % (11.5-14.5); Segmented Neutrophils % 85.5 %
[2016-07-12 01:21] LABS: INR 1.5; Prothrombin Time 16.9 Seconds (9.4-12.1)
[2016-07-12 01:35] LABS: Calcium 9.6 mg/dL (8.6-10.8); Potassium 3.7 mEq/L (3.5-4.5)
[2016-07-12] MEDS: Aztreonam 1,000 MG in D5% in Water (Mini-Bag+) 100 ML IVPB SCH ×2 (03:56→08:58)
[2016-07-12] MEDS: Magnesium Sulfate 2 GM in D5% in Water 100 ML IVPB PRN ×2 (06:35→13:53)
[2016-07-12] MEDS: *HR* Morphine 2 MG/ML SYRINGE IVP PRN (06:45)
--- NOTE | 2016-07-12 07:44 | Pulmonology Progress Note ---
<AngelaomarShelly jewell M - Last Filed: 07/12/16 12:29> Date of Encounter: 07/12/16 Objective PUL Vital signs: Last Vital Signs Temp 97.7 F 07/12/16 12:15 Pulse 107 07/12/16 10:52 Resp 14 07/12/16 10:56 BP 152/88 07/12/16 10:00 Pulse Ox 98 07/12/16 10:56 Results - Laboratory Findings CBC and BMP: 07/12/16 01:02 07/12/16 01:02 PT/INR, D-dimer PT 16.9 Seconds (9.4-12.1) H 07/12/16 01:02 Abnormal lab findings: Abnormal lab results WBC 17.7 K/mcL (4.3-11.1) H 07/12/16 01:02 RBC 2.91 M/mcL (3.82-4.97) L 07/12/16 01:02 Hgb 7.3 g/dL (11.5-15.4) L 07/12/16 01:02 Hct 23.4 % (35.3-44.9) L 07/12/16 01:02 MCV 80.4 fL (83.0-100.0) L 07/12/16 01:02 MCH 25.1 pg (28.0-33.3) L 07/12/16 01:02 MCHC 31.2 g/dL (31.6-35.5) L 07/12/16 01:02 RDW 17.1 % (11.5-14.5) H 07/12/16 01:02 Neutrophils # 15.1 K/mcL (1.6-8.9) H 07/12/16 01:02 Nucleated RBCs/100 WBC 0.2 /100 WBC (0) H 07/12/16 01:02 ESR 61 mm/hr (0-15) H 07/12/16 01:02 PT 16.9 Seconds (9.4-12.1) H 07/12/16 01:02 Sodium 135 mEq/L (136-145) L 07/12/16 01:02 BUN 23 mg/dL (7-20) H 07/12/16 01:02 Creatinine 1.21 mg/dL (0.57-1.11) H 07/12/16 01:02 Est GFR ( Amer) 55 (> 60) L 07/12/16 01:02 Est GFR (Non-Af Amer) 45 (> 60) L 07/12/16 01:02 Glucose 194 mg/dL (70-99) H 07/12/16 01:02 POC Glucose 423 (58-89) H* 07/12/16 11:57 Hemoglobin A1c 7.6 % (-5.6) H 07/11/16 12:05 Magnesium 0.9 mg/dL (1.6-2.6) L 07/12/16 01:02 Troponin I 0.18 ng/mL (0-0.03) H* 07/12/16 01:06 C-Reactive Protein 278 mg/L (Less than 5) H 07/12/16 01:02 Fluid Appearance Cloudy (Clear) A 07/11/16 16:47 - Microbiology Findings Microbiology Findings: Microbiology, Last 48 Hours 07/11/16 16:47 Gram Stain - Preliminary Right Lower Lobe Lung - Clinical Findings Intake & Output: Intake & Output 07/11/16 07/12/16 07/12/16 23:59 07:59 15:59 Intake Total 206 / 206 220 / 220 818 / 818 Output Total 450 / 450 550 / 550 300 / 300 Balance -244 / -244 -330 / -330 518 / 518 Weight 91.263 kg Consult Discharge Plan - Plan Referrals: Aliyah Prado, EMERGENCY DEPARTMENT TECHNICIAN [Primary Care Provider] - - Attending Attestation I examined this patient and my medical decision-making was reviewed with the CHEMICAL OPERATOR/PA/Advanced Practice Nurse/Resident Physician. I agree with the documented findings, disposition and treatment plan as described except to the extent set forth below. Patient seen and examined. Labs, radiology, chart personally reviewed. Agree with resident's history and physical, assessment, plan with following comments: DISEASE EDUCATION SPECIALIST: Patient follows commands, Pulmonary: Acceptable oxygenation and ventilation. She has improved significantly and no evidence of hemoptysis. Continue workup for vasculitis and steroids. If abnormal serology then will consult rheumatology since patient has history of rheumatoid arthritis. Follow-up on the cytology and cultures. Wean off FiO2 and BiPAP when necessary. Cardiovascular: stable. Hold any antiplatelets for now. GI: Nutrition per dietary and GI prophylaxis per routine Heme: DVT prophylaxis per routine ID: Continue antibiotics and plan to de-escalation Renal; urine out put and renal funtion reviewed Endorcine: blood glucose is monitored Lines: all lines checked and no evidence of infections Skin: skin care to prevent pressure ulcers per nursing routine care Patient can be transferred to the floor. <Vincenzo Rhodes - Last Filed: 07/12/16 15:08> Date of Encounter: 07/12/16 Time of Encounter: 07:44 Assessment and Plan (1) Diffuse pulmonary alveolar hemorrhage Current Visit: Yes Status: Acute RLL BAL with cloudy appearance, gram stain with few gram positive cooci and GNR Bronchoscopy performed 07/[address] Quigley and found to have pulmonary hemorrhage suspect side effects of medications such as Plavix or possible vasculitis continue high dose Solumedrol continue workup for vasculitis and steroids need to follow up on cytology and cultures will consult rheumatology if abnormal serology since she has history of RA and was scheduled to see Dr. Cai continue to monitor airway and wean off FiO2 and BiPAP when necessary hemoglobin 7.3 from 8.3, 1 unit of pRBC ordered for transfusion patient stable to transfer to floor Pulmonology will continue to follow (2) Acute on chronic respiratory failure with hypoxia Current Visit: Yes Status: Acute secondary to pulmonary hemorrhage and possible pneumonia DC Symbicort as she is receiving IV steroids AF is rate controlled, switch back to Albuterol wean off FiO2 and BiPAP when necessary patient can be transferred to the floor (3) Hemoptysis Current Visit: Yes Status: Resolved significant improvement no evidence of hemoptysis (4) Pneumonia Current Visit: No Status: Acute continue Levoquin and Vancomycin, currently day 2 plan to de-escalate Qualifiers: Pneumonia type: due to unspecified organism Laterality: bilateral Lung location: lower lobe of lung Qualified Code(s): J18.9 - Pneumonia, unspecified organism (5) Anemia Current Visit: Yes Status: Acute reports fatigue and lightheadedness she is very pale with pale conjunctiva Hgb is low 7.3 from 8.3 will transfuse 1 unit of pRBC history of multiple transfusion in the past year, none last 3 months Qualifiers: Anemia type: unspecified type Qualified Code(s): D64.9 - Anemia, unspecified (6) Diabetes mellitus type 2, uncontrolled Current Visit: Yes Status: Chronic history of uncontrolled IDDM, A1c 7.6 blood sugars avg 190-200s, some as high as 300 elevated due to daily solu-medrol increased insulin sliding scale to medium scale confirmed with patient that she take 70U Levemir at bedtime, will change basal to 35U BID Qualifiers: Diabetes mellitus complication status: with neurologic complications Diabetes mellitus complication detail: with unspecified neuropathy Diabetes mellitus usp insulin use: with terminal operations manager use Qualified Code(s): E11.40 - Type 2 diabetes mellitus with diabetic neuropathy, unspecified; E11.65 - Type 2 diabetes mellitus with hyperglycemia; Z79.4 - adjunct faculty for medical terminology (current) use of insulin (7) Coronary artery disease Current Visit: Yes Status: Chronic continue to hold ASA and Plavix due to pulmonary hemorrhage and anemia recommend to hold AC by cardiology Qualifiers: Coronary Disease-Associated Artery/Lesion type: bypass graft [place] vs. transplanted heart: [place] heart Associated angina: without angina Qualified Code(s): I25.810 - Atherosclerosis of coronary artery bypass graft(s) without angina pectoris (8) Atrial fibrillation Current Visit: Yes Status: Acute remains in atrial fibrillation rate controlled continue PO Cardizem for rate control hold off on AC due to hemoptysis Qualifiers: Atrial fibrillation type: chronic Qualified Code(s): I48.2 - Chronic atrial fibrillation (9) DVT prophylaxis Current Visit: No Status: Acute DISEASE EDUCATION SPECIALIST: patient is alert and oriented, follows commands Pulmonary: diffuse rhonchi bilaterally improving, scheduled bronchodilators and solumedrol, she is maintaining airway with good oxygen saturation and ventilation on supplemental nasal cannula, no evidence of active hemoptysis, alveolar hemorrhage possibly due to vasculitis, follow up on cytology and cultures, may consider Rheumatology consultation pending results Cardiovascular: stable, remains atrial fibrillation with normal ventricular response 90-100s, on Cardizem, BPs remain stable GI: ADA diet Heme: DVT prophylaxis, ICDs due to hemoptysis and alveolar hemorrhage, anemic 7.3 transfusing 1 unit pRBCs ID: continue antibiotics and plan to de-escalate Renal: no issues Endocrine: blood glucose monitored, on medium scale ISS, increase basal to 35U BID as she takes 70U at home Lines: all lines checked without evidence of infections Skin: ICU skin care per protocol Subjective Principal diagnosis: hemoptysis Interval history: Patient seen and examined at bedside. Patient received a Xopenex breathing treatment last night with a brief coughing spell with hemoptysis. Last night getting up to commode felt short of breath and was placed on BiPAP. Has tolerated well maintaining good oxygen saturation up to 100%. Currently denies any further hemoptysis, shortness of breath, chest pain, abdominal pain, nausea , or vomiting. Denies any blood stools, black tarry stools, or hematuria. Objective PUL Vital signs: Last Vital Signs Temp 97.5 F L 07/12/16 07:43 Pulse 82 07/12/16 07:00 Resp 19 07/12/16 07:00 BP 142/68 07/12/16 07:00 Pulse Ox 100 07/12/16 07:00 General appearance: no acute distress, alert, other (generalized pallor) Eyes: nonicteric, other (Pale conjunctiva) Effort: normal (Appears in no respiratory distress, currently on BiPAP tolerating well) Auscultation: bilateral: rhonchi Cardiovascular: irregular rhythm Gastrointestinal: normoactive bowel sounds, soft, non-tender, non-distended Integumentary: normal, other (pallor) Extremities: no edema, pink and warm, other (no calf tenderness) Musculoskeletal: no deformities, ROM normal normal mental status, non-focal exam, pupils equal and round, motor strength normal and symmetric Results - Laboratory Findings CBC and BMP: 07/12/16 01:02 07/12/16 12:26 PT/INR, D-dimer PT 16.9 Seconds (9.4-12.1) H 07/12/16 01:02 Abnormal lab findings: Abnormal lab results WBC 17.7 K/mcL (4.3-11.1) H 07/12/16 01:02 RBC 2.91 M/mcL (3.82-4.97) L 07/12/16 01:02 Hgb 7.3 g/dL (11.5-15.4) L 07/12/16 01:02 Hct 23.4 % (35.3-44.9) L 07/12/16 01:02 MCV 80.4 fL (83.0-100.0) L 07/12/16 01:02 MCH 25.1 pg (28.0-33.3) L 07/12/16 01:02 MCHC 31.2 g/dL (31.6-35.5) L 07/12/16 01:02 RDW 17.1 % (11.5-14.5) H 07/12/16 01:02 Neutrophils # 15.1 K/mcL (1.6-8.9) H 07/12/16 01:02 Nucleated RBCs/100 WBC 0.2 /100 WBC (0) H 07/12/16 01:02 ESR 61 mm/hr (0-15) H 07/12/16 01:02 PT 16.9 Seconds (9.4-12.1) H 07/12/16 01:02 Sodium 135 mEq/L (136-145) L 07/12/16 01:02 BUN 23 mg/dL (7-20) H 07/12/16 01:02 Creatinine 1.21 mg/dL (0.57-1.11) H 07/12/16 01:02 Est GFR ( Amer) 55 (> 60) L 07/12/16 01:02 Est GFR (Non-Af Amer) 45 (> 60) L 07/12/16 01:02 Glucose 194 mg/dL (70-99) H 07/12/16 01:02 POC Glucose 360 (58-89) H 07/12/16 07:21 Hemoglobin A1c 7.6 % (-5.6) H 07/11/16 12:05 Magnesium 0.9 mg/dL (1.6-2.6) L 07/12/16 01:02 Troponin I 0.18 ng/mL (0-0.03) H* 07/12/16 01:06 C-Reactive Protein 278 mg/L (Less than 5) H 07/12/16 01:02 Fluid Appearance Cloudy (Clear) A 07/11/16 16:47 - Microbiology Findings Microbiology Findings: Microbiology, Last 48 Hours 07/11/16 16:47 Gram Stain - Preliminary Right Lower Lobe Lung - Clinical Findings Intake & Output: Intake & Output 07/11/16 07/11/16 07/12/16 15:59 23:59 07:59 Intake Total 410 / 410 206 / 206 220 / 220 Output Total 450 / 450 550 / 550 Balance 410 / 410 -244 / -244 -330 / -330 Weight 88.4 kg 91.263 kg
[2016-07-12] MEDS: Insulin LISPRO 300 UNITS/3 ML VIAL SQ SCH ×6 (08:27→20:31)
[2016-07-12] MEDS: methylPREDNISolone 125 MG/2 ML VIAL IVP SCH ×3 (08:44→23:42)
[2016-07-12] MEDS: Isosorbide MONOnitrate (24 HR) 60 MG TAB.ER.24H PO SCH (08:45)
[2016-07-12] MEDS: cloNIDine HCl 0.1 MG TABLET PO SCH ×2 (08:45→20:31)
[2016-07-12] MEDS ORDERED: Levofloxacin 750 MG/150 ML 750 MG/150 ML BAG IVPB SCH (09:00)
[2016-07-12] MEDS ORDERED: Pantoprazole 40 MG VIAL IVP SCH (09:00)
[2016-07-12] MEDS: Vancomycin 1,250 MG in D5% in Water 250 ML IVPB SCH (10:34)
[2016-07-12] MEDS: Budesonide/Formoterol 160/4.5 MDI IH SCH (10:55)
[2016-07-12] MEDS ORDERED: Insulin LISPRO 300 UNITS/3 ML VIAL SQ SCH ×2 (11:08)
[2016-07-12] MEDS ORDERED: Albuterol 2.5 MG/3 ML NEBULIZER IH PRN (11:09)
--- NOTE | 2016-07-12 12:16 | Cardiology Progress Note ---
Date of Encounter: 07/12/16 Time of Encounter: 12:14 Assessment and Plan (1) Atrial fibrillation with rapid ventricular response Current Visit: Yes Status: Inactive A-Fib with RVR in setting of PNA, sepsis, respiratory failure. Pt was started on Cardizem gtt, since coverted to PO Cardizem 60mg Q8 hours. HR now better controlled--24 hour tele AVG HR 100. 80s-100 at bedside. Transition to long acting Cardizem CD. Will increase dose to 240mg daily. Echo EF 60-65%, severely dilated left atrium, mild MR. TSH 03/2016 1.045. Mag 0.9--being replaced. K 3.7. Pt reports being told in the past she had A-Fib, but I see no prior documentation of this. CHADSVASC score 4 (HTN, CAD, Female, DM). Unable to anticoagulate at this time due to alveolar hemorrhage. Cardiology signing off. Reconsult PRN. Follow-up as outpt in 2-3 weeks. (2) Elevated troponin Current Visit: Yes Status: Acute Troponin 0.05, 0.28 , 0.37, 0.18--now downtrending, in setting of PNA, acute on chronic respiratory failure, sepsis, possible alveolar hemorrhage, A-Fib with RVR. Likely secondary to demand ischemia, nondiagnostic for ACS. Echo with preserved EF 60-65%. Pt does admit to chest pain but in setting of above. Ischemic evaluation not warranted at this time. Recommend re-evaluation of chest pain as outpt once acute issues are treated/resolved. [facility] 2014 medical management was recommended without intervention. Recommend statin. Will not start ASA due to avealoar hemorrhage and will not start BB in setting of acute respiratory failure. (3) Coronary artery disease Current Visit: Yes Status: Chronic Hx of PCI and CABG x 3 in 2006. Most recent [facility] was at [place] 2014. Showed occluded RCA and occluded first obtuse marginal branch, Sequential CARTER to LAD and first diagonal branch was patent, but there was a competing flow. SVG to second obtuse marginal branch was patent. She was advised to continue medical therapy. There were collaterals noted from the LAD to the distal RCA. Hold ASA and Plavix in setting of alveolar hemorrhage. Hold BB due to acute on chronic respiratory failure. Order statin. Qualifiers: Coronary Disease-Associated Artery/Lesion type: bypass graft [place] vs. transplanted heart: [place] heart Associated angina: without angina Qualified Code(s): I25.810 - Atherosclerosis of coronary artery bypass graft(s) without angina pectoris (4) Tobacco abuse Current Visit: No Status: Chronic Smoking cessation counseling given. Discussion w patient/family: The assessment and plan as outlined above was discussed with the patient and/or family members who expressed understanding and agreement. All questions were answered. Thank you for involving us in the care of your patient. Please call with any questions. I will discuss all the above with Dr. Jaron Maurer and make changes as necessary. Subjective Principal diagnosis: hemoptysis Interval history: Pt denies acute complaints this AM. Objective Vital Signs, Last 4 Hours Pulse Resp BP Pulse Ox 07/12/16 10:56 14 98 07/12/16 10:52 107 97 07/12/16 10:00 96 20 152/88 20 07/12/16 09:00 79 16 165/87 98 Vital Signs Temp Pulse Resp BP Pulse Ox 07/12/16 10:56 14 98 07/12/16 10:52 107 97 07/12/16 10:00 96 20 152/88 20 07/12/16 09:00 79 16 165/87 98 07/12/16 08:00 68 16 160/73 99 07/12/16 07:43 97.5 F L 07/12/16 07:00 82 19 142/68 100 07/12/16 06:11 82 18 154/70 100 07/12/16 05:17 99 18 156/78 100 07/12/16 04:19 97.9 F 07/12/16 04:10 89 18 156/72 94 07/12/16 03:05 87 14 161/76 100 07/12/16 02:00 93 18 168/78 100 07/12/16 01:30 89 18 164/70 100 07/12/16 00:52 98.4 F 88 18 167/74 99 07/11/16 23:13 102 16 188/93 99 07/11/16 22:06 108 24 150/88 93 07/11/16 21:15 111 20 151/69 96 07/11/16 21:08 20 92 07/11/16 20:03 136 22 136/95 96 07/11/16 20:02 98.5 F 07/11/16 19:32 24 122/73 96 07/11/16 18:00 104 18 144/84 95 07/11/16 17:00 100 22 155/104 95 07/11/16 16:05 93 22 157/94 94 07/11/16 15:11 98 07/11/16 15:00 95 30 153/76 99 07/11/16 14:15 24 95 07/11/16 14:00 93 22 186/110 78 07/11/16 13:55 106 22 188/89 80 07/11/16 13:50 87 22 189/79 85 07/11/16 13:35 97.7 F 93 22 172/103 87 07/11/16 13:30 97.7 F 93 22 106/56 85 Intake and Output 07/11/16 07/12/16 07/12/16 23:59 07:59 15:59 Intake Total 206 / 206 220 / 220 818 / 818 Output Total 450 / 450 550 / 550 300 / 300 Balance -244 / -244 -330 / -330 518 / 518 Intake: IV Fluids 206 / 206 100 / 100 398 / 398 PRECEDEX 400 mcg In 100 6 / 6 44 / 44 ml @ 0.2 MCG/KG/HR 4.42 mls/hr IVC .[id number] [facility] Rx#:[id number] Azactam 1,000 MG In 200 / 200 100 / 100 100 / 100 Dextrose 5% (Minibag+) 100 ML 100 ML @ 200 mls/ hr IVPB Q6H [facility] Rx#: [id number] Levaquin Premix 750mg/150 150 / 150 mL 750 mg In 150 ml @ 100 mls/hr IVPB Q24H [facility] Rx#:[id number] Magnesium Sulfate 2 GM In 104 / 104 Dextrose 5% 100 ML @ 50 mls/hr IVPB Q6H PRN Rx#: [id number] Oral 120 / 120 420 / 420 Output: Urine 450 / 450 550 / 550 300 / 300 Other: Meal Dinner Percent of Meal Consumed 50% Weight 91.263 kg Blood Glucose* 199 360 360 Patient Weight 07/12/16 23:59 Weight 91.263 kg General: Conversant, No Apparent Distress HEENT: Atraumatic, Normocephaly, Mucus Membranes Moist Neck: No JVD, Normal carotid pulses Cardiac: Other (irregularly irregular) Lungs: Other (rhonchi) Neuro: Alert and responsive, No focal deficits noted Abdomen: Soft, Non-Tender Skin: No rashes noted on visualized skin Musculoskeletal: No Chest Wall Tenderness Extremities: No Clubbing, No Cyanosis, No Edema, Normal Pulses Results 07/12/16 01:02 07/12/16 01:02 Lab Results 07/11/16 07/11/16 07/12/16 12:05 17:44 01:02 WBC 17.7 H Hgb 7.3 L Hct 23.4 L Plt Count 269 INR Sodium Potassium Chloride Carbon Dioxide BUN Creatinine Glucose Calcium Magnesium Troponin I 0.28 H* 0.37 H* 07/12/16 07/12/16 07/12/16 01:02 01:02 01:02 WBC Hgb Hct Plt Count INR 1.5 Sodium 135 L Potassium 3.7 Chloride 103 Carbon Dioxide 23 BUN 23 H Creatinine 1.21 H Glucose 194 H Calcium 9.6 Magnesium 0.9 L Troponin I 07/12/16 01:06 WBC Hgb Hct Plt Count INR Sodium Potassium Chloride Carbon Dioxide BUN Creatinine Glucose Calcium Magnesium Troponin I 0.18 H* Short CBC 07/12/16 Range/Units 01:02 WBC 17.7 H (4.3-11.1) K/mcL Hgb 7.3 L (11.5-15.4) g/dL Hct 23.4 L (35.3-44.9) % Plt Count 269 (140-400) K/mcL Neutrophils # 15.1 H (1.6-8.9) K/mcL BMP 07/12/16 Range/Units 01:02 Sodium 135 L (136-145) mEq/L Potassium 3.7 (3.5-4.5) mEq/L Chloride 103 (98-109) mEq/L Carbon Dioxide 23 (19-29) mEq/L BUN 23 H (7-20) mg/dL Creatinine 1.21 H (0.57-1.11) mg/dL Glucose 194 H (70-99) mg/dL Calcium 9.6 (8.6-10.8) mg/dL Cardiac Enzymes 07/12/16 07/11/16 07/11/16 Range/Units 01:06 17:44 12:05 Troponin I 0.18 H* 0.37 H* 0.28 H* (0-0.03) ng/mL Active Medications Acetaminophen (Tylenol) 650 mg PO Q6HR PRN PRN Reason: Mild Pain (1-3) Stop: 01/10/17 08:34 Acetaminophen/Hydrocodone Bitart ([place] 5-325 Mg) 1 tab PO Q4HR PRN PRN Reason: Moderate Pain (4-6) Stop: 01/10/17 08:34 Last Admin: 07/11/16 21:01 Dose: 1 tab Albuterol Sulfate (Proventil Neb) 2.5 mg IH [id number] PRN; Protocol PRN Reason: Shortness Of Breath/Wheezing Stop: 01/11/17 11:10 Clonidine HCl (Clonidine Hcl) 0.2 mg PO BID [facility] Stop: 01/10/17 14:46 Last Admin: 07/12/16 08:45 Dose: 0.2 mg Dextrose/Water (Dextrose 50% (Syg)) 25 ml IVP AD PRN PRN Reason: Hypoglycemia Stop: 01/10/17 08:37 Diltiazem HCl (Cardizem) 60 mg PO Q8H [facility] Stop: 01/10/17 10:01 Last Admin: 07/12/16 08:44 Dose: 60 mg Glucagon (Glucagen) 1 mg IM ONCE PRN PRN Reason: Hypoglycemia Stop: 01/10/17 08:37 Glucose (Gluctose) 15 gm PO ONCE PRN PRN Reason: Hypoglycemia Stop: 01/10/17 08:37 Glucose (Gluctose) 30 gm PO ONCE PRN PRN Reason: Hypoglycemia Stop: 01/10/17 08:37 Heparin Sodium (Porcine) (Heparin) 5,000 unit SQ Q8HR [facility] Stop: 01/10/17 16:01 Hydralazine HCl (Hydralazine) 10 mg IVP Q6HR PRN PRN Reason: Hypertension Stop: 01/10/17 14:40 Last Admin: 07/11/16 23:28 Dose: 10 mg Dextrose (Dextrose 5%) 1,000 mls @ 100 mls/hr IVC .Q10H PRN PRN Reason: HYPOGLYCEMIA Stop: 01/10/17 08:37 Levofloxacin/Dextrose (Levaquin Premix 750mg/150 Ml) 750 mg in 150 mls @ 100 mls/hr IVPB Q24H [facility] PRN Reason: Protocol Stop: 01/11/17 09:01 Last Infusion: 07/12/16 10:34 Dose: Infused Vancomycin HCl 1,250 mg/ (Dextrose) 250 mls @ 166.67 mls/hr IVPB Q24H [facility] Stop: 01/10/17 11:01 Last Admin: 07/12/16 10:34 Dose: 166.67 mls/hr Dexmedetomidine HCl (Precedex) 400 mcg in 100 mls @ 4.42 mls/hr IVC .[id number] [facility]; 0.2 MCG/KG/HR PRN Reason: Protocol Stop: 01/10/17 15:01 Last Titration: 07/12/16 09:00 Dose: 0 mcg/kg/hr, 0 mls/hr Calcium Gluconate 1,000 mg/ (Dextrose) 110 mls @ 50 mls/hr IVPB Q6HR PRN PRN Reason: Hypocalcemia Stop: 01/10/17 15:39 Magnesium Sulfate 2 gm/ (Dextrose) 104 mls @ 50 mls/hr IVPB Q6H PRN PRN Reason: Hypomagnesemia Stop: 01/10/17 15:39 Last Infusion: 07/12/16 08:59 Dose: Infused Potassium Chloride (Potassium Chloride 10 Meq/100ml) 10 meq in 100 mls @ 100 mls/hr IVPB Q1H PRN PRN Reason: Potassium less than 4 Stop: 01/10/17 15:39 Sodium Phosphate 30 mmol/ (Dextrose) 110 mls @ 16 mls/hr IVPB Q12H PRN PRN Reason: Hypophosphatemia Stop: 01/10/17 15:39 Insulin Detemir (Levemir) 14 unit 0.15 unit/kg (14 unit) SQ HS [facility] Stop: 01/10/17 21:01 Last Admin: 07/11/16 21:23 Dose: 14 unit Insulin Human Lispro (Humalog) 4 units 0.05 units/kg (4 units) SQ TIDWM [facility] Stop: 01/10/17 12:01 Last Admin: 07/12/16 08:27 Dose: Not Given Insulin Human Lispro (Humalog) 0 units SQ TIDAC [facility] PRN Reason: Protocol Stop: 01/10/17 11:31 Insulin Human Lispro (Humalog) 0 units SQ HS [facility] PRN Reason: Protocol Stop: 01/10/17 21:01 Isosorbide Mononitrate (Imdur) 60 mg PO DAILY [facility] Stop: 01/10/17 14:46 Last Admin: 07/12/16 08:45 Dose: 60 mg Levothyroxine Sodium (Synthroid) 125 mcg PO DAILY@0630 [facility] Stop: 01/11/17 06:31 Last Admin: 07/12/16 06:08 Dose: 125 mcg Methylprednisolone (Solu-Medrol) 80 mg IVP Q8HR [facility] Stop: 01/11/17 00:01 Last Admin: 07/12/16 08:44 Dose: 80 mg Morphine Sulfate (Morphine Sulfate) 2 mg IVP Q4HR PRN PRN Reason: Severe Pain (7-10) Stop: 01/10/17 08:34 Last Admin: 07/12/16 06:45 Dose: 2 mg Naloxone HCl (Narcan) 0.4 mg IVP Q2MIN PRN PRN Reason: Opioid Reversal Stop: 01/10/17 08:34 Ondansetron HCl (Zofran) 4 mg IVP Q8HR PRN PRN Reason: Nausea And Vomiting Stop: 01/10/17 08:34 Pantoprazole Sodium (Protonix) 40 mg IVP DAILY [facility] Stop: 01/11/17 09:01 Last Admin: 07/12/16 08:45 Dose: 40 mg Potassium Chloride (Potassium Chloride) 40 meq PO DAILY PRN PRN Reason: Hypokalemia Stop: 01/10/17 15:39 Last Admin: 07/12/16 09:12 Dose: 40 meq Potassium Phos/Sodium Phos (Neutra-Phos) 2 each PO DAILY PRN; Protocol PRN Reason: Hypophosphatemia Stop: 01/10/17 15:39 Rosuvastatin Calcium (Crestor) 40 mg PO HS [facility] Stop: 01/10/17 21:01 Last Admin: 07/11/16 21:01 Dose: 40 mg - Imaging and Cardiology Echo: report reviewed - EKG Interpretation EKG results cardiology: other (24 hour tele AVG HR 100, A-Fib.) - VTE Documentation of Mechanical Device: Intermittent pneumatic compression device Consult Discharge Plan - Plan Referrals: Aliyah Prado, DIRECTOR OF CODING [Primary Care Provider] -
[2016-07-12] MEDS ORDERED: 0.9 % Sodium Chloride 250 ML ONE (12:24)
[2016-07-12] MEDS ORDERED: Diltiazem CD (24hr) 240 MG CAPSULE PO SCH (12:30)
[2016-07-12 13:10] LABS: Magnesium 1.6 mg/dL (1.6-2.6)
[2016-07-12] MEDS ORDERED: Dextrose Gel 15 GM PO PRN ×2 (14:05)
[2016-07-12] MEDS ORDERED: *HR* Dextrose 50 % in Water (Syg) 50 ML SYRINGE IVP PRN (14:05)
[2016-07-12] MEDS ORDERED: Ondansetron 4 MG/2 ML VIAL IVP PRN (14:05)
[2016-07-12] MEDS ORDERED: D5% in Water 1,000 ML IVC PRN (14:05)
[2016-07-12] MEDS ORDERED: *HR* Morphine 2 MG/ML SYRINGE IVP PRN (14:05)
[2016-07-12] MEDS ORDERED: Naloxone 0.4 MG/ML INJ IVP PRN (14:05)
[2016-07-12] MEDS ORDERED: Insulin LISPRO 300 UNITS/3 ML VIAL SQ ONE (15:00)
[2016-07-12] MEDS: Albuterol 2.5 MG/3 ML NEBULIZER IH PRN (19:30)
[2016-07-12] MEDS ORDERED: 0.9 % Sodium Chloride 500 ML ONE (20:21)
[2016-07-12] MEDS: *HR* HYDROcodone/Acet 5/325 mg TABLET PO PRN (20:30)
[2016-07-12] MEDS: Insulin DETEMIR 100 UNIT/ML X5UNITS SQ SCH (20:31)
[2016-07-12] MEDS ORDERED: Insulin DETEMIR 100 UNIT/ML X5UNITS SQ SCH (21:00)
[2016-07-12] MEDS: Acetaminophen 325 MG TABLET PO PRN (23:48)
[2016-07-13] MEDS ORDERED: ALPRAZolam 0.25 MG TABLET ONE (03:41)
[2016-07-13 05:41] LABS: Basophils % 0.1 %; Hematocrit 25.5 % (35.3-44.9); Hemoglobin 8.3 g/dL (11.5-15.4); Immature Granulocytes % 1.6 % (0-4); Lymphocytes # 0.9 K/mcL (0.6-4.6); Mean Corpuscular HGB Conc 32.5 g/dL (31.6-35.5); Mean Corpuscular Hemoglobin 26.7 pg (28.0-33.3); Mean Platelet Volume 10.5 fL (9.4-12.4); Monocytes # 0.3 K/mcL (0.0-1.3); Monocytes % 1.7 %; Neutrophils # 16.8 K/mcL (1.6-8.9); Nucleated Red Blood Cells 0.2 /100 WBC (0); Platelet Count 261 K/mcL (140-400); Red Blood Count 3.11 M/mcL (3.82-4.97); Red Cell Distribution Width 17.3 % (11.5-14.5); Segmented Neutrophils % 91.6 %
[2016-07-13 06:05] LABS: Calcium 9.8 mg/dL (8.6-10.8); Magnesium 2.3 mg/dL (1.6-2.6); Potassium 3.7 mEq/L (3.5-4.5)
[2016-07-13] MEDS ORDERED: Aminoglycoside Consult 1 EACH MC ONE (07:24)
[2016-07-13] MEDS: Insulin LISPRO 300 UNITS/3 ML VIAL SQ SCH ×7 (08:28→21:42)
[2016-07-13] MEDS: Isosorbide MONOnitrate (24 HR) 60 MG TAB.ER.24H PO SCH (08:29)
[2016-07-13] MEDS: cloNIDine HCl 0.1 MG TABLET PO SCH ×2 (08:29→21:40)
[2016-07-13] MEDS: methylPREDNISolone 125 MG/2 ML VIAL IVP SCH ×2 (08:30→17:09)
[2016-07-13] MEDS ORDERED: Pantoprazole 40 MG VIAL IVP SCH (09:00)
[2016-07-13] MEDS ORDERED: Levofloxacin 750 MG/150 ML 750 MG/150 ML BAG IVPB SCH (09:00)
[2016-07-13] MEDS ORDERED: Diltiazem CD (24hr) 240 MG CAPSULE PO SCH (09:00)
[2016-07-13] MEDS: Insulin DETEMIR 100 UNIT/ML X5UNITS SQ SCH ×2 (09:12→21:41)
[2016-07-13] MEDS ORDERED: Vancomycin 1,250 MG in D5% in Water 250 ML IVPB SCH (11:00)
--- NOTE | 2016-07-13 11:38 | Pulmonology Progress Note ---
<Alex Garcias - Last Filed: 07/13/16 11:49> Date of Encounter: 07/13/16 Time of Encounter: 10:00 Assessment and Plan (1) Acute on chronic respiratory failure with hypoxia Current Visit: Yes Status: Acute Secondary to alveolar hemorrhaging and possible pneumonia. - Patient continues on Solu-Medrol IV. - Continued on diltiazem drip for atrial fibrillation rate control. - Requires 6 L nasal cannula oxygen to maintain oxygen saturations greater than 90% - Able to speak in full sentences with minimal interruption for breathing. - Continue antibiotic coverage for potential pneumonia with Levaquin and vancomycin. (2) Diffuse pulmonary alveolar hemorrhage Current Visit: Yes Status: Acute Bronchoscopy performance 07/11 demonstrated pulmonary hemorrhage with suspected side effect of Plavix. Cannot rule out vasculitis at this time. - RLL BAL with cloudy appearance, gram stain with few gram positive cooci and GNR - Legionella antigen negative, blood culture preliminary no growth, respirate culture preliminary demonstrates normal upper respiratory tract juan m, acid- fast stain negative, nonsignificant Gram stain of right lower lobe lung collection. - C reactive protein 278, PT/INR 1.5, leukocytosis. patient continues to have hemoptysis Differential: Ulnar hemorrhage secondary to anticoagulation versus Goodpasture' s. Plan: - Continue to avoid anticoagulation with pulmonary hemorrhage - Continue IV steroids. - Continue vasculitis workup. - Wean oxygen as tolerated (3) Atrial fibrillation Current Visit: Yes Status: Acute Patient has known atrial fibrillation, currently rapid ventricular rate on diltiazem drip. Continue to hold anticoagulation with hemoptysis. - Continue rate control Qualifiers: Atrial fibrillation type: chronic Qualified Code(s): I48.2 - Chronic atrial fibrillation (4) Diabetes mellitus type 2, uncontrolled Current Visit: Yes Status: Chronic Patient is a known type II diabetic with ahemoglobin A1c of 7.6. Glucose is significantly elevated likely secondary to IV steroids. Plan: - Continue medium dose sliding scale insulin - Continue Levemir 35 units subcutaneous twice a day - Continue pre-meal insulin Qualifiers: Diabetes mellitus complication status: with neurologic complications Diabetes mellitus complication detail: with unspecified neuropathy Diabetes mellitus senior living insulin use: with senior living use Qualified Code(s): E11.40 - Type 2 diabetes mellitus with diabetic neuropathy, unspecified; E11.65 - Type 2 diabetes mellitus with hyperglycemia; Z79.4 - longterm (current) use of insulin (5) Anemia Current Visit: No Status: Acute Patient presents with normocytic anemia with a hemoglobin of 8.3 which is been stable. RDW 17.3. Patient is a history of anemia with review of patient's laboratory results. - Likely worsened with pulmonary hemorrhage. - Continue to avoid anticoagulation - Monitor hemoglobins daily with plans to transfuse with hemoglobin less than 7.0 Qualifiers: Anemia type: other cause Other causes of anemia: chronic disease, kidney Qualified Code(s): N18.9 - Chronic kidney disease, unspecified; D63.1 - Anemia in chronic kidney disease (6) DVT prophylaxis Current Visit: No Status: Acute Subjective Principal diagnosis: hemoptysis Interval history: Ms. Graham 60-year-old female has been seen in her patient bedside this morning. She is laying in her bed on her side in no acute distress. She is awake alert interactive and says that she continues to have some shortness of breath but tolerable at this time. She becomes more tachycardic and short of breath when changing position. She continues to have hemoptysis and has provided a sputum sample which is dark red in a jar. She has been trying to eat , denies any nausea vomiting fevers chills lightheadedness dizziness chest pains. She is concerned about her overall condition is optimistic about improving. Objective PUL Vital signs: Last Vital Signs Temp 97.6 F 07/13/16 07:48 Pulse 84 07/13/16 07:48 Resp 16 07/13/16 07:48 BP 182/65 07/13/16 07:48 Pulse Ox 90 07/13/16 07:48 General appearance: alert, appears uncomfortable Eyes: nonicteric ENT: oropharynx moist Neck: supple Effort: normal, mildly labored Auscultation: bilateral: other (Mild crackles diffusely) Cardiovascular: irregular rhythm Gastrointestinal: normoactive bowel sounds, soft, non-tender Integumentary: normal Extremities: no cyanosis, no edema, no clubbing, pink and warm, pulses normal Musculoskeletal: no deformities normal mental status, non-focal exam mood appropriate, affect normal Results - Laboratory Findings CBC and BMP: 07/13/16 04:11 07/13/16 04:11 PT/INR, D-dimer PT 16.9 Seconds (9.4-12.1) H 07/12/16 01:02 Abnormal lab findings: Abnormal lab results WBC 18.4 K/mcL (4.3-11.1) H 07/13/16 04:11 RBC 3.11 M/mcL (3.82-4.97) L 07/13/16 04:11 Hgb 8.3 g/dL (11.5-15.4) L 07/13/16 04:11 Hct 25.5 % (35.3-44.9) L 07/13/16 04:11 MCV 82.0 fL (83.0-100.0) L 07/13/16 04:11 MCH 26.7 pg (28.0-33.3) L 07/13/16 04:11 RDW 17.3 % (11.5-14.5) H 07/13/16 04:11 Neutrophils # 16.8 K/mcL (1.6-8.9) H 07/13/16 04:11 Nucleated RBCs/100 WBC 0.2 /100 WBC (0) H 07/13/16 04:11 ESR 61 mm/hr (0-15) H 07/12/16 01:02 PT 16.9 Seconds (9.4-12.1) H 07/12/16 01:02 Sodium 131 mEq/L (136-145) L 07/13/16 04:11 Carbon Dioxide 16 mEq/L (19-29) L 07/13/16 04:11 BUN 39 mg/dL (7-20) H D 07/13/16 04:11 Creatinine 1.51 mg/dL (0.57-1.11) H 07/13/16 04:11 Est GFR ( Amer) 43 (> 60) L 07/13/16 04:11 Est GFR (Non-Af Amer) 35 (> 60) L 07/13/16 04:11 Glucose 343 mg/dL (70-99) H 07/13/16 04:11 POC Glucose 429 (58-89) H* 07/13/16 07:46 Hemoglobin A1c 7.6 % (-5.6) H 07/11/16 12:05 Troponin I 0.18 ng/mL (0-0.03) H* 07/12/16 01:06 C-Reactive Protein 278 mg/L (Less than 5) H 07/12/16 01:02 Fluid Appearance Cloudy (Clear) A 07/11/16 16:47 Vancomycin Trough 9.8 mcg/mL (10-20) L 07/13/16 10:43 - Microbiology Findings Microbiology Findings: Microbiology, Last 48 Hours 07/11/16 16:47 Respiratory Culture - Preliminary Right Lower Lobe Lung Normal upper respiratory tract juan m. No apparent pathogens isolated. 07/11/16 16:47 Gram Stain - Final Right Lower Lobe Lung 07/11/16 09:07 Blood Culture - Preliminary Peripheral Venipuncture No growth. 07/11/16 16:47 Acid Fast Stain - Final Right Lower Lobe Lung 07/12/16 23:12 Legionella Antigen - Final Urine,Clean Catch Streptococcus pneumoniae Antigen (M - Final - Clinical Findings Intake & Output: Intake & Output 07/12/16 07/13/16 07/13/16 23:59 07:59 15:59 Intake Total 188.4 / 188.4 56.6 / 56.6 125 / 125 Output Total 600 / 600 0 / 0 Balance -411.6 / -411.6 56.6 / 56.6 125 / 125 Weight 93.553 kg - VTE Documentation of Mechanical Device: Intermittent pneumatic compression device Consult Discharge Plan - Plan Referrals: Aliyah Prado, BIZTALK SOFTWARE DEVELOPER [Primary Care Provider] - (walk in facilities.. no need for an appointment.) <Shelly Quigley - Last Filed: 07/13/16 16:27> Date of Encounter: 07/13/16 Objective PUL Vital signs: Last Vital Signs Temp 98.5 F 07/13/16 16:25 Pulse 110 07/13/16 16:25 Resp 16 07/13/16 16:25 BP 190/65 07/13/16 16:25 Pulse Ox 92 07/13/16 16:25 Results - Laboratory Findings CBC and BMP: 07/13/16 04:11 07/13/16 04:11 PT/INR, D-dimer PT 16.9 Seconds (9.4-12.1) H 07/12/16 01:02 Abnormal lab findings: Abnormal lab results WBC 18.4 K/mcL (4.3-11.1) H 07/13/16 04:11 RBC 3.11 M/mcL (3.82-4.97) L 07/13/16 04:11 Hgb 8.3 g/dL (11.5-15.4) L 07/13/16 04:11 Hct 25.5 % (35.3-44.9) L 07/13/16 04:11 MCV 82.0 fL (83.0-100.0) L 07/13/16 04:11 MCH 26.7 pg (28.0-33.3) L 07/13/16 04:11 RDW 17.3 % (11.5-14.5) H 07/13/16 04:11 Neutrophils # 16.8 K/mcL (1.6-8.9) H 07/13/16 04:11 Nucleated RBCs/100 WBC 0.2 /100 WBC (0) H 07/13/16 04:11 ESR 61 mm/hr (0-15) H 07/12/16 01:02 PT 16.9 Seconds (9.4-12.1) H 07/12/16 01:02 Sodium 131 mEq/L (136-145) L 07/13/16 04:11 Carbon Dioxide 16 mEq/L (19-29) L 07/13/16 04:11 BUN 39 mg/dL (7-20) H D 07/13/16 04:11 Creatinine 1.51 mg/dL (0.57-1.11) H 07/13/16 04:11 Est GFR ( Amer) 43 (> 60) L 07/13/16 04:11 Est GFR (Non-Af Amer) 35 (> 60) L 07/13/16 04:11 Glucose 343 mg/dL (70-99) H 07/13/16 04:11 POC Glucose 468 (58-89) H* 07/13/16 12:01 Hemoglobin A1c 7.6 % (-5.6) H 07/11/16 12:05 Troponin I 0.18 ng/mL (0-0.03) H* 07/12/16 01:06 C-Reactive Protein 278 mg/L (Less than 5) H 07/12/16 01:02 Fluid Appearance Cloudy (Clear) A 07/11/16 16:47 Vancomycin Trough 9.8 mcg/mL (10-20) L 07/13/16 10:43 - Microbiology Findings Microbiology Findings: Microbiology, Last 48 Hours 07/11/16 16:47 Respiratory Culture - Preliminary Right Lower Lobe Lung Normal upper respiratory tract juan m. No apparent pathogens isolated. 07/11/16 16:47 Gram Stain - Final Right Lower Lobe Lung 07/11/16 09:07 Blood Culture - Preliminary Peripheral Venipuncture No growth. 07/11/16 16:47 Acid Fast Stain - Final Right Lower Lobe Lung 07/12/16 23:12 Legionella Antigen - Final Urine,Clean Catch Streptococcus pneumoniae Antigen (M - Final - Clinical Findings Intake & Output: Intake & Output 07/13/16 07/13/16 07/13/16 07:59 15:59 23:59 Intake Total 56.6 / 56.6 273.1 / 273.1 Output Total 0 / 0 Balance 56.6 / 56.6 273.1 / 273.1 - Attending Attestation I examined this patient and my medical decision-making was reviewed with the BUILDING RIGGER/PA/Advanced Practice Nurse/Resident Physician. I agree with the documented findings, disposition and treatment plan as described except to the extent set forth below. Patient seen and examined. Labs, radiology, chart personally reviewed. 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 Continue systemic steroid and consulted rheumatology. Check urine for sediment Cardiovascular: A. fib on Cardizem and patient has pain which worsened tachycardia. Patient needs pain control We will continue monitoring
--- NOTE | 2016-07-13 13:17 | Internal Med Progress Note ---
Date of Encounter: 07/13/16 Time of Encounter: 10:45 - Assessment and plan (1) Diffuse pulmonary alveolar hemorrhage Current Visit: Yes Status: Acute Assessment and plan: on systemic stroids and oxygen therapy. also on broad spectrum antibiotics due to possible concomitant infection, follow cultures. follow pulmonology input. autoimmune workup pending. (2) Diabetes mellitus type 2, uncontrolled Current Visit: Yes Status: Chronic Assessment and plan: due to systemic steroids, increase insulin dos. continue monitring. Qualifiers: Diabetes mellitus complication status: with neurologic complications Diabetes mellitus complication detail: with unspecified neuropathy Diabetes mellitus longterm insulin use: with longterm use Qualified Code(s): E11.40 - Type 2 diabetes mellitus with diabetic neuropathy, unspecified; E11.65 - Type 2 diabetes mellitus with hyperglycemia; Z79.4 - [facility] (current) use of insulin (3) Rheumatoid arthritis Current Visit: Yes Status: Chronic Qualifiers: Rheumatoid arthritis location: unspecified site Rheumatoid factor presence : unspecified presence Qualified Code(s): M06.9 - Rheumatoid arthritis, unspecified (4) DVT prophylaxis Current Visit: No Status: Acute (5) Acute on chronic respiratory failure with hypoxia Current Visit: Yes Status: Acute (6) Hemoptysis Current Visit: Yes Status: Resolved (7) Atrial fibrillation Current Visit: Yes Status: Acute Assessment and plan: rvr cardizem drip was resumed, no ac for now due to hemoptysis, will give po short acting cardizem and try to down titrate cardizem drip. cardiology signed off yesterday, will d/c with acardiology according to clinical response. Qualifiers: Atrial fibrillation type: chronic Qualified Code(s): I48.2 - Chronic atrial fibrillation - Subjective Interval history: 1st enocuter with the patient, still hmeptysis, n ofever. - Constitutional Vitals: Temp Pulse Resp BP Pulse Ox 97.6 F 114 18 146/66 90 07/13/16 12:02 07/13/16 12:02 07/13/16 12:02 07/13/16 12:02 07/13/16 12:02 General appearance: Present: A&O X 3, pleasant, no acute distress Exam: not in distress. tattoo in her back. - Head Head exam: Present: atraumatic, normocephalic - Eye Eye exam: Present: PERRL, conjuntiva pink, sclera anicteric Pupils: Present: PERRL - Neck Neck exam general surgery: Present: supple, trachea midline. Absent: lymphadenopathy - Respiratory Respiratory exam: Present: CTAB. Absent: accessory muscle use, rales, rhonchi, wheezes - Cardiovascular Cardiovascular exam: Present: RRR, +S1, +S2. Absent: diastolic murmur, gallop, rubs, systolic murmur - GI/Abdominal GI/Abdominal exam: Present: normal bowel sounds, soft, no peritoneal signs. Absent: distended, tenderness - Extremities Exam Extremities exam: Present: warm, radial pulses palpable and symetrical. Absent : calf tenderness, cyanotic, pedal edema - Neurological Exam Neurological exam: Present: CN II-XII intact, oriented X3, no focal deficits. Absent: pronater drift, facial droop, speech deficit - Skin Skin exam: Present: dry, intact Internal Medicine: Result - Labs CBC & Chem 7: 07/13/16 04:11 07/13/16 04:11 Labs: Short CBC 07/13/16 Range/Units 04:11 WBC 18.4 H (4.3-11.1) K/mcL Hgb 8.3 L (11.5-15.4) g/dL Hct 25.5 L (35.3-44.9) % Plt Count 261 (140-400) K/mcL Neutrophils # 16.8 H (1.6-8.9) K/mcL BMP 07/12/16 07/13/16 12:26 04:11 Sodium 131 L Potassium 4.0 3.7 Chloride 102 Carbon Dioxide 16 L BUN 39 H D Creatinine 1.51 H Glucose 343 H Calcium 9.8 - ABG Interpretation ABG results: PT/INR, D-dimer PT 16.9 Seconds (9.4-12.1) H 07/12/16 01:02 - VTE Documentation of Mechanical Device: Intermittent pneumatic compression device Consult Discharge Plan - Plan Referrals: Aliyah Prado, HUMAN RESOURCES OPERATIONS SPECIALIST [Primary Care Provider] - (walk in facilities.. no need for an appointment.)
[2016-07-13 15:10] LABS: Complement Component 3 138 mg/dL (88-201); Complement Component 4 22 mg/dL (10-40)
[2016-07-13] MEDS: Acetaminophen 325 MG TABLET PO PRN (15:16)
--- NOTE | 2016-07-13 15:39 | Rheumatology Consult Note ---
<Jluis Sanders - Last Filed: 07/13/16 16:23> Date of Encounter: 07/13/16 Time of Encounter: 14:15 Rheumatology Assess and Plan (1) Diffuse pulmonary alveolar hemorrhage Current Visit: Yes Status: Acute Patient found to have diffuse alveolar hemorrhage. Possible etiologies could be from medications, personal medical conditions, autoimmune/vasculitis, or infectious. Patient underwent BAL and current infectious causes are being evaluated by medicine and pulmonology. She has been under treatment with solumedrol, breathing treatments, and antibiotics. Leukocytosis has been improving, but is not resolved. Will further evaluate for auto-immune causes of her diffuse alveolar hemorrhage. Granulomatosis with polyangitis (Jarrod's), Goodpasture's, [place]- Ted, SLE (previous CORINNE titer 1:320), etc... Will obtain UA with microscopy Check c- and p- ANCA DARIC panel (with previously elevated CORINNE titer) CCP Hepatitis Panel She is also receiving treatment with solu-medrol and will continue this treatment while undergoing further workup. (2) Atrial fibrillation with RVR Current Visit: Yes Status: Acute Patient is continuing to have a.fib with RVR with heart rates in the 120s. Further management per primary team (3) Sepsis Current Visit: Yes Status: Acute Infectious workup underway currently. Patient on broad spectrum antibiotics of levaquin and vancomycin. Continue management per primary team Qualifiers: Sepsis type: sepsis due to unspecified organism Qualified Code(s): A41.9 - Sepsis, unspecified organism (4) Renal insufficiency Current Visit: Yes Status: Acute Patient has several reasons for her current VALERY. But there is some concern for vascultitis contributing to the patient's alveolar hemorrhage. Will continue to watch patient renal function with daily chemistry Will proceed with autoimmune/vasculitis workup as above Rheumatology HPI Consult date: 07/13/16 Requesting physician: Vincenzo Rhodes Consult reason: Concern for vasculitis Chief complaint: Coughing up blood History of present illness: Ms. Graham is a 60 year old female with past medical history of CAD (w/ previous CABG), Diabetes mellitus, chronic anemia, hypothyroidism, atrial fibrillation, COPD, and prior diagnosis of rheumatoid arthritis (first diagnosed several months ago). She was brought to the hospital after calling EMS because of onset of hemoptysis on 07/10/16. She was admitted to [facility] after undergoing transfer from [place] on 07/11/16. She reports that she had been coughing for about a day prior to beginning to cough up blood. She reports that it was a significant enough quantity that she was concerned. Upon arrival to the ER, she was found to have an elevated HR with irregular rhythm, to have a WBC of 27, and increased oxygen demand. CT exam showed extensive ground-glass density with peripheral nodular appearance. She was found to have alveolar hemorrhage after undergoing bronchoscopy that revealed blood in the BAL. When seen and examined this afternoon, she is lying in her bed continuing to have some shortness of breath with exertion and speaking. She reports that she has continued pain in the right side of her chest when she feels short of breath. She states that when she feels more short of breath she feels that she is lightheaded, that her heart rate goes up. She feels that when her blood sugar is up she has some issues seeing spots, but has not had any other problems with her vision. She reports that she has chronic pain in her back, hands, fingers, and knees. 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 She states that she does not have any significant morning stiffness. She does report some occasional swelling of her knees, but otherwise does not have much. She denies any history of clotting, miscarriages, or other clotting disorders. She denies recurrent sinus or ear infections. She denies dry mouth or eyes. Past Med Surg Social Fam HX - Past Medical History Medical history: atrial fibrillation, COPD, coronary artery disease, diabetes, GERD, hyperlipidemia, hypertension, myocardial infarction, RA, thyroid disease, TIA Psychiatric history: no psych history - Past Surgical History Surgical History: angioplasty/stent, coronary bypass (CABG), hysterectomy, thyroidectomy - Social History Smoking Status: Former smoker Packs per day: 1.5 Smokeless Tobacco Status: No Alcohol use: none Drug use: marijuana - Family History Mother Adopted: No Family Member Ethnicity: Non- Living Status: Hx Family Cardiac Disorders: Yes ( of MA) Hx Family Respiratory Disorders: No Hx Family Cancer: Yes (breast ca) Hx Family GI Disorders: No Hx Family Endocrine Disorder: No Hx Family Neuromuscular Disorders: No Hx Family Neurologic Disorders: No Hx Family HEENT Disorders: No Hx Family Autoimmune Disorders: No Brother Living Status: Still Living Hx Family Cardiac Disorders: Yes Hx Family Respiratory Disorders: Yes Hx Family Cancer: Yes Hx Family Endocrine Disorder: Yes Hx Family Medical Disorders: Yes Medications and Allergies Clopidogrel [Plavix] 75 mg PO DAILY 06/10/15 [History] Cyclobenzaprine [Flexeril] 10 mg PO TID 06/10/15 [History] Gabapentin [Neurontin] 300 mg PO TID 06/10/15 [History] Insulin ASPART [NovoLOG] 21 unit SQ TIDWM 06/10/15 [History] Insulin Glargine [Lantus] 70 unit SQ HS 06/10/15 [History] Isosorbide DInitrate [Isosorbide Dinitrate] 30 mg PO BID 06/10/15 [History] Rosuvastatin [Crestor] 40 mg PO DAILY 06/10/15 [History] amLODIPine [Norvasc] 10 mg PO DAILY 06/10/15 [History] traMADol [Ultram] 50 mg PO QID 06/10/15 [History] Levothyroxine Sodium [Levoxyl] 125 mcg PO DAILY 02/01/16 [History] metFORMIN [Glucophage] 1,000 mg PO BID 02/01/16 [History] BuPROPion [Wellbutrin] 100 mg PO BID 03/20/16 [History] Fenofibrate 54 mg PO DAILY 03/20/16 [History] Hydralazine HCl 100 mg PO BID 03/26/16 [History] Omeprazole [PriLOSEC] 20 mg PO DAILY 03/26/16 [History] cloNIDine HCl [CloNIDine HCl] 0.2 mg PO BID #60 tablet 03/29/16 [Rx] Metoprolol [Lopressor] 100 mg PO BID 07/02/16 [History] Sennosides/Docusate Sodium [Senna Plus] 1 tab PO BID PRN 07/02/16 [History] Ferrous Sulfate 325 mg PO BIDWM #60 tablet. 07/03/16 [Rx] Losartan [Cozaar] 25 mg PO DAILY #30 tablet 07/03/16 [Rx] hydroCHLOROthiazide [Hydrochlorothiazide] 25 mg PO DAILY 07/11/16 [History] Allergies lisinopril Allergy (Verified 07/11/16 05:00) Swelling of Lip/Tongue/Throat Penicillins [PCN] Allergy (Verified 03/19/16 21:38) Hives All Systems Review: A 10-system review of systems was performed and is negative for pertinent findings except as documented above in the HPI. Rheumatology Exam Vital Signs, Last 4 Hours Temp Pulse Resp BP Pulse Ox 07/13/16 12:02 97.6 F 114 18 146/66 90 Exam: General: Patient having conversational dyspnea, but is otherwise comfortable, no acute distress, slightly clammy to touch HEENT: NCAT, sclera anicteric, no conjunctival pallor noted, mucosa moist, no oral ulcers observed, no cervical LAD Resp: Diffuse wheeze and rales R>L auscultated CV: Tachycardic irregular rhythm Abd: soft, non-distended, bowel sounds present Extremities: No nail pitting, no swelling of her digits or legs, finger joints palpated and are non-tender, no erythema or pallor noted in her extremities, slight swelling of left first metacarpal region (likely from blood draws and bandage on that hand), pulses present and equal b/l Skin: no rashes readily identified, large tattoo on back, large tattoo on lower leg Neuro: no focal defects identified Rheumatology Results 07/13/16 04:11 07/13/16 04:11 Immunology Rheumatoid Factor < 15 IU/mL (0-29) 07/11/16 17:44 All other labs normal. Consult Discharge Plan - Plan Referrals: Aliyah Prado, ROTARY ADJUSTER [Primary Care Provider] - (walk in facilities.. no need for an appointment.) <Amrit Cai - Last Filed: 07/13/16 16:49> Date of Encounter: 07/13/16 Rheumatology HPI History of present illness: Ms. Graham is a 60 year old female All Systems Review: A 10-system review of systems was performed and is negative for pertinent findings except as documented above in the HPI. Rheumatology Exam Vital Signs, Last 4 Hours Temp Pulse Resp BP Pulse Ox 07/13/16 16:25 98.5 F 110 16 190/65 92 Rheumatology Results 07/13/16 04:11 07/13/16 04:11 Immunology Rheumatoid Factor < 15 IU/mL (0-29) 07/11/16 17:44 Complement C3 138 mg/dL (88-201) 07/11/16 17:44 Complement C4 22 mg/dL (10-40) 07/11/16 17:44 All other labs normal. - Attending Attestation I have personally seen and examined the patient Norah Graham with the resident Jluis Sanders. I agree with his assessment and plan with the following exceptions. This patient is a 60 yo F with PMH of CAD, DM, hypothyroidism who presents to the hospital with hemopytsis and shortness of breath. - Afib on presentation - CT chest with extensive ground glass opacities, nodular appearing - Bronch with blood in tracheal tree and mucosal inflammation - Infectious workup NGT - Autoimmune workup - Outside labs CORINNE 1:320, RF, CCP negative; ESR/CRP elevated , complements normal - Exam consistent with crackles/rhonchi on exam - No synovitis though right hand is puffy (Had tape around wrist causing this perhaps) - At this time, consideration of autoimmune cause for pulmonary hemmorhage should be worked up. Add UA to look for RBCs/Casts, renal function mildly elevated. - CORINNE was previously low titered positive though alveolar hemmorhage not too common in those connective tissue disease - No clinical history of RA (RF/CCR negative on outpatient referral notes) - Await ANCAs, Anti-GBM antibodies - Currently covered with antibiotics and corticosteroids Will continue to follow. I discussed case with Dr Hector today.
[2016-07-13 21:40] LABS: Bilirubin,Urine Negative (Negative); Blood,Urine Moderate (Negative); Clarity,Urine Cloudy (Clear); Color,Urine Yellow (Yellow); Glucose,Urine (UA) >=1000 mg/dL (Normal); Ketones,Urine Negative (Negative); Leukocyte Esterase,Urine Negative (Negative); Nitrite,Urine Negative (Negative); Protein,Urine 100 mg/dL (Neg-Trace); Specific Gravity,Urine 1.025 (1.010-1.025); Urobilinogen,Urine Normal (Normal)
[2016-07-13 21:42] LABS: Bacteria,Urine None Seen per hpf (None-Few); RBC,Urine 0-3 per hpf (0-3); Squamous Epithelial Cell,Urine Many per lpf (None-Few)
[2016-07-13 21:58] LABS: Creatinine,Urine 58 mg/dL; Microalbum/Creatinine Ratio,Ur 405 (0-30); Microalbumin,Urine 235 mg/L
[2016-07-13 22:02] LABS: Hyaline Casts,Urine Few per lpf (None-Few)
[2016-07-14] MEDS: methylPREDNISolone 125 MG/2 ML VIAL IVP SCH ×2 (00:22→08:13)
[2016-07-14] MEDS ORDERED: 0.9 % Sodium Chloride 500 ML ONE (02:30)
[2016-07-14 05:14] LABS: Basophils % 0.1 %; Hemoglobin 7.9 g/dL (11.5-15.4); Nucleated Red Blood Cells 0.3 /100 WBC (0)
[2016-07-14 05:15] LABS: Hematocrit 24.9 % (35.3-44.9); Immature Granulocytes % 2.2 % (0-4); Lymphocytes # 0.9 K/mcL (0.6-4.6); Lymphocytes % 3.1 %; Mean Corpuscular HGB Conc 31.7 g/dL (31.6-35.5); Mean Corpuscular Hemoglobin 25.8 pg (28.0-33.3); Mean Corpuscular Volume 81.4 fL (83.0-100.0); Mean Platelet Volume 9.9 fL (9.4-12.4); Monocytes # 0.6 K/mcL (0.0-1.3); Monocytes % 2.1 %; Neutrophils # 27.1 K/mcL (1.6-8.9); Platelet Count 353 K/mcL (140-400); Red Blood Count 3.06 M/mcL (3.82-4.97); Segmented Neutrophils % 92.5 %
[2016-07-14 05:26] LABS: Calcium 10.2 mg/dL (8.6-10.8); Potassium 3.9 mEq/L (3.5-4.5)
[2016-07-14 05:50] LABS: Anisocytosis 1+ (Not Present); Hypersegmented Neutrophils Present (Not Present); Platelet Estimate Normal (Normal)
[2016-07-14 05:51] LABS: Poikilocytosis 1+ (Not Present); Stomatocytes 1+ (Not Present)
[2016-07-14 07:14] LABS: ANA IgG by ELISA DETECTED (None Detected)
[2016-07-14] MEDS: Insulin LISPRO 300 UNITS/3 ML VIAL SQ SCH ×7 (08:03→21:31)
[2016-07-14] MEDS: Insulin DETEMIR 100 UNIT/ML X5UNITS SQ SCH (08:14)
[2016-07-14] MEDS: cloNIDine HCl 0.1 MG TABLET PO SCH ×2 (08:14→21:27)
[2016-07-14] MEDS: Isosorbide MONOnitrate (24 HR) 60 MG TAB.ER.24H PO SCH (08:14)
--- NOTE | 2016-07-14 08:18 | Pulmonology Progress Note ---
<Alex Garcias - Last Filed: 07/14/16 08:57> Date of Encounter: 07/14/16 Time of Encounter: 08:18 Assessment and Plan (1) Acute on chronic respiratory failure with hypoxia Current Visit: Yes Status: Acute Secondary to alveolar hemorrhaging. - Patient continues on Solu-Medrol IV. - Continued on diltiazem drip for atrial fibrillation rate control. - Requires 6 L nasal cannula oxygen to maintain oxygen saturations greater than 90% - Able to speak in full sentences with minimal interruption for breathing. - Continue antibiotic coverage for potential pneumonia with Levaquin, complete 5 days. (2) Diffuse pulmonary alveolar hemorrhage Current Visit: Yes Status: Acute Bronchoscopy performance 07/11 demonstrated pulmonary hemorrhage currently suspicious for vasculitis at this time. - RLL BAL with cloudy appearance, gram stain with few gram positive cooci and GNR - Legionella antigen negative, blood culture preliminary no growth, respirate culture normal upper respiratory tract juan m, acid-fast stain negative, nonsignificant Gram stain of right lower lobe lung collection. - C reactive protein 278, PT/INR 1.5, leukocytosis. Immunologic findings: CORINNE titer 1:1280 (> 1:160 is clinically significant) - patient continues to have hemoptysis Highly suspicious for vasculitis given the patient has a elevated C-reactive protein at 278, CORINNE titer of 1:1280, urinalysis had a microalbumin/creatinine ratio of 405 with moderate blood in the urine. Patient continues to have hemoptysis Differential diagnosis includes granulomatous polyangiitis, Goodpasture's, systemic lupus erythematous. Lower suspicion for infectious etiology given the patient's clinical picture. Study still pending: CCP, fungal cultures, CORINNE IgG AMANDA, MPO/PR3 SCL-70, glomerular basement membrane IgG, antineutrophil, hemosiderin urine Plan: - Continue to avoid anticoagulation with pulmonary hemorrhage - Continue IV steroids. - Continue vasculitis workup. - Wean oxygen as tolerated - Rheumatology involved (3) Atrial fibrillation Current Visit: Yes Status: Acute Patient has known atrial fibrillation, currently rapid ventricular rate on diltiazem drip. Continue to hold anticoagulation with hemoptysis. - Continue rate control Qualifiers: Atrial fibrillation type: chronic Qualified Code(s): I48.2 - Chronic atrial fibrillation (4) Diabetes mellitus type 2, uncontrolled Current Visit: Yes Status: Chronic Patient is a known type II diabetic with a hemoglobin A1c of 7.6. Glucose elevated, improving with her current insulin regimen, likely secondary to IV steroids. 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 RDW 17.3. Patient is a history of anemia with review of patient's laboratory results. - Likely worsened with pulmonary hemorrhage. - Continue to avoid anticoagulation - Received 1 unit PRBCs on 07/12/2016 - Monitor hemoglobins daily with plans to transfuse with hemoglobin less than 7.0 Qualifiers: Anemia type: other cause Other causes of anemia: chronic disease, kidney Qualified Code(s): N18.9 - Chronic kidney disease, unspecified; D63.1 - Anemia in chronic kidney disease (6) DVT prophylaxis Current Visit: No Status: Acute Subjective Principal diagnosis: hemoptysis Interval history: Ms. Graham 60-year-old female has been seen in her patient bedside this morning. She is sitting up in bed in no acute distress alert oriented and interactive. She said that she is feeling better today she feels that she can catch her breath and is without complaints. She continues to have some mild hemoptysis but feels that her breathing is improved. She is concerned about her heart rate and glucose level. She denies any other concerns at this time. Objective PUL Vital signs: Last Vital Signs Temp 97.6 F 07/14/16 07:31 Pulse 117 07/14/16 07:31 Resp 17 07/14/16 07:31 BP 178/78 07/14/16 07:31 Pulse Ox 92 07/14/16 07:31 General appearance: no acute distress Eyes: nonicteric ENT: oropharynx moist Neck: supple, no lymphadenopathy, no JVD Effort: normal Auscultation: bilateral: clear (Mild expiratory crackles) Cardiovascular: irregular rhythm (Rapid ventricular rate) Gastrointestinal: normoactive bowel sounds, soft, non-tender, non-distended Integumentary: normal Extremities: no cyanosis, edema, other (Trace edema in bilateral lower extremities.) Musculoskeletal: no deformities normal mental status, non-focal exam, pupils equal and round mood appropriate, affect normal Results - Laboratory Findings CBC and BMP: 07/14/16 04:24 07/14/16 04:24 PT/INR, D-dimer PT 16.9 Seconds (9.4-12.1) H 07/12/16 01:02 Abnormal lab findings: Abnormal lab results WBC 29.3 K/mcL (4.3-11.1) H D 07/14/16 04:24 RBC 3.06 M/mcL (3.82-4.97) L 07/14/16 04:24 Hgb 7.9 g/dL (11.5-15.4) L 07/14/16 04:24 Hct 24.9 % (35.3-44.9) L 07/14/16 04:24 MCV 81.4 fL (83.0-100.0) L 07/14/16 04:24 MCH 25.8 pg (28.0-33.3) L 07/14/16 04:24 RDW 18.0 % (11.5-14.5) H 07/14/16 04:24 Neutrophils # 27.1 K/mcL (1.6-8.9) H 07/14/16 04:24 Nucleated RBCs/100 WBC 0.3 /100 WBC (0) H 07/14/16 04:24 Hypersegmented Neuts Present (Not Present) A 07/14/16 04:24 Poikilocytosis 1+ (Not Present) A 07/14/16 04:24 Anisocytosis 1+ (Not Present) A 07/14/16 04:24 Stomatocytes 1+ (Not Present) A 07/14/16 04:24 ESR 58 mm/hr (0-15) H 07/14/16 04:24 PT 16.9 Seconds (9.4-12.1) H 07/12/16 01:02 Carbon Dioxide 16 mEq/L (19-29) L 07/14/16 04:24 BUN 44 mg/dL (7-20) H 07/14/16 04:24 Creatinine 1.59 mg/dL (0.57-1.11) H 07/14/16 04:24 Est GFR ( Amer) 40 (> 60) L 07/14/16 04:24 Est GFR (Non-Af Amer) 33 (> 60) L 07/14/16 04:24 BUN/Creatinine Ratio 28 (6-26) H 07/14/16 04:24 Glucose 288 mg/dL (70-99) H 07/14/16 04:24 POC Glucose 314 (58-89) H 07/13/16 21:20 Hemoglobin A1c 7.6 % (-5.6) H 07/11/16 12:05 Calculated Osmolality 304 (280-300) H 07/14/16 04:24 Troponin I 0.18 ng/mL (0-0.03) H* 07/12/16 01:06 C-Reactive Protein 278 mg/L (Less than 5) H 07/12/16 01:02 Urine Clarity Cloudy (Clear) A 07/13/16 21:00 Urine Protein 100 mg/dL (Neg-Trace) H 07/13/16 21:00 Urine Glucose (UA) >=1000 mg/dL (Normal) H 07/13/16 21:00 Urine Blood Moderate (Negative) H 07/13/16 21:00 Urine Microscopic WBC 3-5 per hpf (0-3) H 07/13/16 21:00 Ur Squamous Epith Cells Many per lpf (None-Few) H 07/13/16 21:00 Microalb/Creat Ratio 405 (0-30) H 07/13/16 21:00 Fluid Appearance Cloudy (Clear) A 07/11/16 16:47 Vancomycin Trough 9.8 mcg/mL (10-20) L 07/13/16 10:43 CORINNE Screen DETECTED (None Detected) A 07/11/16 17:44 CORINNE Titer 1:1280 (<1:40) H 07/11/16 17:44 - Microbiology Findings Microbiology Findings: Microbiology, Last 48 Hours 07/11/16 16:47 Respiratory Culture - Final Right Lower Lobe Lung Normal upper respiratory tract juan m. No apparent pathogens isolated. 07/13/16 12:30 Sputum Culture - Preliminary Sputum 07/11/16 16:47 Gram Stain - Final Right Lower Lobe Lung 07/11/16 09:07 Blood Culture - Preliminary Peripheral Venipuncture No growth. 07/11/16 16:47 Acid Fast Stain - Final Right Lower Lobe Lung 07/12/16 23:12 Legionella Antigen - Final Urine,Clean Catch Streptococcus pneumoniae Antigen (M - Final - Clinical Findings Intake & Output: Intake & Output 07/13/16 07/14/16 07/14/16 23:59 07:59 15:59 Output Total 300 / 300 Balance -300 / -300 Weight 94 kg - VTE Documentation of Mechanical Device: Intermittent pneumatic compression device Consult Discharge Plan - Plan Referrals: Aliyah Prado, [employer] [Primary Care Provider] - (walk in facilities.. no need for an appointment.) <Shelly Quigley M - Last Filed: 07/14/16 12:01> Date of Encounter: 07/14/16 Objective PUL Vital signs: Last Vital Signs Temp 98.8 F 07/14/16 11:28 Pulse 86 07/14/16 11:28 Resp 20 07/14/16 11:28 BP 114/63 07/14/16 11:28 Pulse Ox 94 07/14/16 11:28 Results - Laboratory Findings CBC and BMP: 07/14/16 04:24 07/14/16 04:24 PT/INR, D-dimer PT 16.9 Seconds (9.4-12.1) H 07/12/16 01:02 Abnormal lab findings: Abnormal lab results WBC 29.3 K/mcL (4.3-11.1) H D 07/14/16 04:24 RBC 3.06 M/mcL (3.82-4.97) L 07/14/16 04:24 Hgb 7.9 g/dL (11.5-15.4) L 07/14/16 04:24 Hct 24.9 % (35.3-44.9) L 07/14/16 04:24 MCV 81.4 fL (83.0-100.0) L 07/14/16 04:24 MCH 25.8 pg (28.0-33.3) L 07/14/16 04:24 RDW 18.0 % (11.5-14.5) H 07/14/16 04:24 Neutrophils # 27.1 K/mcL (1.6-8.9) H 07/14/16 04:24 Nucleated RBCs/100 WBC 0.3 /100 WBC (0) H 07/14/16 04:24 Hypersegmented Neuts Present (Not Present) A 07/14/16 04:24 Poikilocytosis 1+ (Not Present) A 07/14/16 04:24 Anisocytosis 1+ (Not Present) A 07/14/16 04:24 Stomatocytes 1+ (Not Present) A 07/14/16 04:24 ESR 58 mm/hr (0-15) H 07/14/16 04:24 PT 16.9 Seconds (9.4-12.1) H 07/12/16 01:02 Carbon Dioxide 16 mEq/L (19-29) L 07/14/16 04:24 BUN 44 mg/dL (7-20) H 07/14/16 04:24 Creatinine 1.59 mg/dL (0.57-1.11) H 07/14/16 04:24 Est GFR ( Amer) 40 (> 60) L 07/14/16 04:24 Est GFR (Non-Af Amer) 33 (> 60) L 07/14/16 04:24 BUN/Creatinine Ratio 28 (6-26) H 07/14/16 04:24 Glucose 288 mg/dL (70-99) H 07/14/16 04:24 POC Glucose 314 (58-89) H 07/13/16 21:20 Hemoglobin A1c 7.6 % (-5.6) H 07/11/16 12:05 Calculated Osmolality 304 (280-300) H 07/14/16 04:24 Troponin I 0.18 ng/mL (0-0.03) H* 07/12/16 01:06 C-Reactive Protein 278 mg/L (Less than 5) H 07/12/16 01:02 Urine Clarity Cloudy (Clear) A 07/13/16 21:00 Urine Protein 100 mg/dL (Neg-Trace) H 07/13/16 21:00 Urine Glucose (UA) >=1000 mg/dL (Normal) H 07/13/16 21:00 Urine Blood Moderate (Negative) H 07/13/16 21:00 Urine Microscopic WBC 3-5 per hpf (0-3) H 07/13/16 21:00 Ur Squamous Epith Cells Many per lpf (None-Few) H 07/13/16 21:00 Microalb/Creat Ratio 405 (0-30) H 07/13/16 21:00 Protein/Creatinin Ratio 1.12 mg/mg (0-0.20) H 07/13/16 21:00 Urine Total Protein 66 mg/dL (1-14) H 07/13/16 21:00 Fluid Appearance Cloudy (Clear) A 07/11/16 16:47 Vancomycin Trough 9.8 mcg/mL (10-20) L 07/13/16 10:43 CORINNE Screen DETECTED (None Detected) A 07/11/16 17:44 CORINNE Titer 1:1280 (<1:40) H 07/11/16 17:44 - Microbiology Findings Microbiology Findings: Microbiology, Last 48 Hours 07/13/16 12:30 Sputum Culture - Preliminary Sputum 07/11/16 16:47 Respiratory Culture - Final Right Lower Lobe Lung Normal upper respiratory tract juan m. No apparent pathogens isolated. 07/11/16 16:47 Gram Stain - Final Right Lower Lobe Lung 07/11/16 09:07 Blood Culture - Preliminary Peripheral Venipuncture No growth. 07/11/16 16:47 Acid Fast Stain - Final Right Lower Lobe Lung 07/12/16 23:12 Legionella Antigen - Final Urine,Clean Catch Streptococcus pneumoniae Antigen (M - Final - Clinical Findings Intake & Output: Intake & Output 07/13/16 07/14/16 07/14/16 23:59 07:59 15:59 Intake Total 91.9 / 91.9 Output Total 300 / 300 Balance -300 / -300 91.9 / 91.9 Weight 94 kg - Attending Attestation I examined this patient and my medical decision-making was reviewed with the [employer]/PA/Advanced Practice Nurse/Resident Physician. I agree with the documented findings, disposition and treatment plan as described except to the extent set forth below. Patient seen and examined. Labs, radiology, chart personally reviewed. 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 Appreciate rheumatology input. We will change systemic steroid from IV to by mouth and agree with nephrology consultation and possible biopsy Cardiovascular: A. fib on Cardizem GI: Nutrition per dietary and GI prophylaxis per routine Heme: DVT prophylaxis per routine We will continue follow up
[2016-07-14 08:19] LABS: Protein/Creatinine Ratio,Urine 1.12 mg/mg (0-0.20)
[2016-07-14 09:08] LABS: Hepatitis A Antibody IgM Nonreactive (Nonreactive); Hepatitis B Core IgM Nonreactive (Nonreactive); Hepatitis B Surface Antigen Nonreactive (Nonreactive); Hepatitis C Virus Antibody Nonreactive (Nonreactive)
--- NOTE | 2016-07-14 09:33 | Nephrology Consult Note ---
Date of Encounter: 07/14/16 Time of Encounter: 09:32 Assessment and Plan (1) Chronic kidney disease, stage 3 Current Visit: Yes Status: Chronic Patient with known history of CKD stage 3 Mildly decreasing function since admission, appears to be at baseline. BUN 44, Cr 1.51, eGFR 33. Continue monitoring I&O Gentle fluid hydration, encourage po intake. Continue monitoring labs. If renal function continues to worsen despite interventions, may need to perform renal biopsy. In preparation for renal biopsy, bp control <160/90 and Hb > 9. Patient must also have been off of blood thinners and PT/INR ordered for Sunday morning. No need for urgent dialysis. Continue with renal protective plan. Avoid nephrotoxic agents. (2) Hematuria Current Visit: Yes Status: Acute Urine was cloudy, urine protein 100, urine glucose >1000, moderate blood ( previously negative in 2015), microalb/cr ratio 405 (previously 206 in 2015), protein/cr ratio 1.12, urine total protein 66. Complement C3 138, C4 22 which are considered normal. CORINNE titer 1:1280. Hematuria noted on recent UA, change from prior Urine studies in 2015 which were negative for blood. Due to positive immune markers and presence of new hematuria and in setting of patient's hospital course and findings, this is highly suspicious for Glomerulonephritis vs vasculitis. Differentials include but not limited to ANCA positive disease and glomerular basement membrane disease. Renal biopsy discussed with patient. If renal function continues worsening despite interventions, in order to ensure criteria met for renal biopsy, control of bp, Hb > 9, and off blood thinners is necessary. (3) Proteinuria Current Visit: Yes Status: Acute Urine was cloudy, urine protein 100, urine glucose >1000, moderate blood, microalb/cr ratio 405, protein/cr ratio 1.12, urine total protein 66. Worsening proteinuria, likely secondary to longstanding uncontrolled type II diabetes vs longstanding uncontrolled hypertension vs suspected glomerulonephritis of uncertain etiology. Qualifiers: Proteinuria type: isolated Isolated proteinuria type: with unspecified morphologic lesion Qualified Code(s): N06.9 - Isolated proteinuria with unspecified morphologic lesion (4) Diabetes mellitus type 2, uncontrolled Current Visit: Yes Status: Chronic Patient has a known history of type II diabetes uncontrolled on chcf insulin. Glucose 288. Urine glucose was >1000. Continue monitoring glucose Continue per Hospitalist plan. Qualifiers: Diabetes mellitus complication status: with neurologic complications Diabetes mellitus complication detail: with unspecified neuropathy Diabetes mellitus assisted insulin use: with assisted use Qualified Code(s): E11.40 - Type 2 diabetes mellitus with diabetic neuropathy, unspecified; E11.65 - Type 2 diabetes mellitus with hyperglycemia; Z79.4 - FDC (current) use of insulin (5) Hypertension Current Visit: Yes Status: Chronic Known history of uncontrolled hypertension. Bp 146-191/63-88 Previous workup 2012 was negative for urine metanephrines. Goal bp <160/90 in preparation for possible renal biopsy on Sunday. Continue monitoring vitals. Continue per Hospitalist plan. Qualifiers: Hypertension type: essential hypertension Qualified Code(s): I10 - Essential (primary) hypertension (6) Diffuse pulmonary alveolar hemorrhage Current Visit: Yes Status: Acute Patient presented initially to [facility] with complaints of generalized weakness, worsening dyspnea, productive cough with blood, and right sided chest pain. CXR findings suggestive of possible multifocal pneumonia. CT chest revealed extensive bilateral ground-glass density with peripheral nodular appear airspace disease suggestive of post infection vs inflammatory etiology vs alveolar hemorrhage. Bronchoscopy revealed hemoptysis, blood present throughout tracheobronchial tree , bronchoalveolar lavage revealed cloud appearance with few gram positive cocci and gram negative rods. Suspicion that this may be secondary to a vasculitis. (7) CORINNE positive Current Visit: Yes Status: Acute CORINNE titer 1:1280 (previously negative in 2015) Rheumatology on board, additional workup pending. Rheumatoid factor <15, CCP IgG 12, Scl-70 IgG Ab 0, Complement C3 138, Complement C4 22 (C3/C4 previously negative in 2015), Serine protease 3 Ab pending, and myeloperoxidase Ab pending (8) Anemia Current Visit: Yes Status: Acute Patient with known history of anemia. Normocytic anemia upon review of labs. Hb 9.2 on arrival to [facility]. Hb continues to decrease, today at 7.9. Received 1 Unit pRBC on 07/12/16 due to Hb 7.3. Likely secondary to pulmonary hemorrhage vs due to continuous lab draws. Goal Hb > 9 by Sunday in preparation for possible renal biopsy. May require transfusion day prior to procedure if still below 9. Continue monitoring labs. Qualifiers: Anemia type: unspecified type Qualified Code(s): D64.9 - Anemia, unspecified (9) Hypothyroid Current Visit: No Status: Chronic History of hypothyroidism s/p thyroidectomy. TSH and PTH ordered. Qualifiers: Hypothyroidism type: acquired Qualified Code(s): E03.9 - Hypothyroidism, unspecified History of Present Illness - Reason for Consult Consult date: 07/14/16 Requesting physician: Alex Garcias - Chief Complaint Hemoptysis, proteinuria, hematuria - History of Present Illness Ms. 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 Patient was determined to be in afib rvr. CXR findings suggestive of possible multifocal pneumonia, Hb 9.2, Hct 29.7, WBC elevated at 27.9. CT Chest revealed extensive bilateral ground-glass density with peripheral nodular appear airspace disease suggestive of post infection vs inflammatory etiology vs alveolar hemorrhage. Echo revealed normal EF, hypokinesis of basal inferior wall, mild moderate concentric left ventricular hypertrophy, severely dilated left atrium, mild mitral regurgitation changes from prior Echo 03/26/16. Bronchoscopy revealed hemoptysis, blood present throughout tracheobronchial tree, bronchoalveolar lavage revealed cloudy appearance with few gram positive cocci and gram negative rods. Patient was admitted for diffuse alveolar hemorrhage and pneumonia. Cardiology and Pulmonology were consulted. Additional labs revealed worsening kidney function. BUN increased from 23 to 44 , Cr increased from 1.21 to 1.51, eGFR decreased from 45 to 33. Urine was cloudy, urine protein 100, urine glucose >1000, moderate blood (previously negative in 2015), microalbumin/cr ratio 405 (previously 206 in 2015), protein/ cr ratio 1.12, urine total protein 66. Rheumatoid factor <15, CCP IgG 12, CORINNE titer 1:1280 (previously negative in 2015), Scl-70 IgG Ab 0, Complement C3 138, Complement C4 22 (C3/C4 normal in 2015), Serine protease 3 Ab pending, and myeloperoxidase Ab pending. Hepatitis A/B/C were negative. Rheumatology was consulted and recommended Nephrology input. Due to worsening kidney function and presence of proteinuria, microscopic hematuria, and positive immune markers, Nephrology was consulted for evaluation of patient for glomerulonephritis and need for renal biopsy. Patient reports that today she continues to cough up very little amounts of blood clots and is short of breath with minimal exertion. Patient denies fevers , chills, sweats, changes in vision or hearing, nausea, vomiting, headaches, lightheaded, dizziness, chest pain, abdominal pain, changes in bowels or bladder , dysuria, hematuria, decreased output, weakness, or loss of sensation. Past Med Surg Social Fam HX - Past Medical History Medical history: atrial fibrillation, COPD, coronary artery disease, diabetes, GERD, hyperlipidemia, hypertension, myocardial infarction, RA, thyroid disease, TIA Psychiatric history: no psych history - Past Surgical History Surgical History: angioplasty/stent, coronary bypass (CABG), hysterectomy, thyroidectomy - Social History Smoking Status: Former smoker Packs per day: 1.5 Smokeless Tobacco Status: No Alcohol use: none Drug use: marijuana - Family History Mother Adopted: No Family Member Ethnicity: Non- Living Status: Hx Family Cardiac Disorders: Yes ( of [place]) Hx Family Respiratory Disorders: No Hx Family Cancer: Yes (breast ca) Hx Family GI Disorders: No Hx Family Endocrine Disorder: No Hx Family Neuromuscular Disorders: No Hx Family Neurologic Disorders: No Hx Family HEENT Disorders: No Hx Family Autoimmune Disorders: No Brother Living Status: Still Living Hx Family Cardiac Disorders: Yes Hx Family Respiratory Disorders: Yes Hx Family Cancer: Yes Hx Family Endocrine Disorder: Yes Hx Family Medical Disorders: Yes Medications and Allergies Clopidogrel [Plavix] 75 mg PO DAILY 06/10/15 [History] Cyclobenzaprine [Flexeril] 10 mg PO TID 06/10/15 [History] Gabapentin [Neurontin] 300 mg PO TID 06/10/15 [History] Insulin ASPART [NovoLOG] 21 unit SQ TIDWM 06/10/15 [History] Insulin Glargine [Lantus] 70 unit SQ HS 06/10/15 [History] Isosorbide DInitrate [Isosorbide Dinitrate] 30 mg PO BID 06/10/15 [History] Rosuvastatin [Crestor] 40 mg PO DAILY 06/10/15 [History] amLODIPine [Norvasc] 10 mg PO DAILY 06/10/15 [History] traMADol [Ultram] 50 mg PO QID 06/10/15 [History] Levothyroxine Sodium [Levoxyl] 125 mcg PO DAILY 02/01/16 [History] metFORMIN [Glucophage] 1,000 mg PO BID 02/01/16 [History] BuPROPion [Wellbutrin] 100 mg PO BID 03/20/16 [History] Fenofibrate 54 mg PO DAILY 03/20/16 [History] Hydralazine HCl 100 mg PO BID 03/26/16 [History] Omeprazole [PriLOSEC] 20 mg PO DAILY 03/26/16 [History] cloNIDine HCl [CloNIDine HCl] 0.2 mg PO BID #60 tablet 03/29/16 [Rx] Metoprolol [Lopressor] 100 mg PO BID 07/02/16 [History] Sennosides/Docusate Sodium [Senna Plus] 1 tab PO BID PRN 07/02/16 [History] Ferrous Sulfate 325 mg PO BIDWM #60 tablet. 07/03/16 [Rx] Losartan [Cozaar] 25 mg PO DAILY #30 tablet 07/03/16 [Rx] hydroCHLOROthiazide [Hydrochlorothiazide] 25 mg PO DAILY 07/11/16 [History] Allergies lisinopril Allergy (Verified 07/11/16 05:00) Swelling of Lip/Tongue/Throat Penicillins [PCN] Allergy (Verified 03/19/16 21:38) Hives Review of Systems Constitutional: malaise, no chills, no fever(s), no headache(s), no night sweats , no weakness Nose, mouth and throat: as per HPI, no dysphagia, no neck pain, no odynophagia, no throat swelling Cardiovascular: chest pain, dyspnea, no edema, no leg edema, no palpitations, no syncope Respiratory: cough, dyspnea, hemoptysis, dyspnea on exertion, change in phlegm color, no wheezing, no pain on inspiration, no chest congestion, no excessive phlegm production Gastrointestinal: as per HPI, no abdominal pain, no change in bowel habits, no change in stool character, no constipation, no diarrhea, no heartburn, no hematemesis, no hematochezia, no melena, no nausea, no vomiting Musculoskeletal: as per HPI, arthralgias, no abnormal gait, no neck pain Integumentary: as per HPI, no lesions, no rash, no swelling, no unusual bruising Neurological: as per HPI, no abnormal gait, no abnormal hearing, no confusion, no headache(s), no loss of vision, no memory loss, no numbness, no syncope, no tingling, no weakness Endocrine: as per HPI, no flushing, no palpitations, no polydipsia, no polyphagia, no polyuria Hematologic/Lymphatic: as per HPI, no easy bleeding, no easy bruising Allergic/Immunologic: as per HPI, no tongue swelling, no throat swelling Exam - Vital Signs Vital signs: Initial Vital Signs Temp Resp BP 98.2 F 16 150/70 07/11/16 07:50 07/11/16 07:50 07/11/16 07:50 Vital Signs - Last 8 Hours Temp Pulse Resp BP Pulse Ox 07/14/16 07:31 97.6 F 117 17 178/78 92 07/14/16 03:46 97.7 F 111 23 187/88 91 Intake and Output 07/13/16 07/14/16 07/14/16 23:59 07:59 15:59 Intake Total 91.9 / 91.9 Output Total 300 / 300 Balance -300 / -300 91.9 / 91.9 Intake: IV Fluids 91.9 / 91.9 Cardizem 125 MG In 91.9 / 91.9 Dextrose 5% 100 ML @ 5 MG /HR 5 mls/hr IVC .Q24H SHERON Rx#:[id number] Output: Urine 300 / 300 Other: # Voids 1 Weight 94 kg Blood Glucose* 314 296 Patient Weight 07/14/16 23:59 Weight 94 kg - General Appearance General appearance: well-developed, well-nourished, appears started age, obese Exam: no acute distress EENT: PERRL, mucous membranes moist, hearing intact, vision intact Neck: no JVD, no thyromegaly, no carotid bruit, supple Respiratory: clear Cardiology: no murmurs, no edema, regular rate, irregular rhythm, normal S1, normal S2 Gastrointestinal: normoactive bowel sounds, no tenderness, no guarding Integumentary: no rash, warm and dry Additional Comments: no splinter hemorrhages, no rash Neurologic: no focal deficit, alert and oriented x3, strength 5/5, CN 3-12 intact Musculoskeletal: no deformities, no erythema, no cyanosis, no clubbing Psychiatric: mood/affect appropriate, cooperative Results - Lab Results 07/14/16 04:24 07/14/16 04:24 Most recent lab results Calcium 10.2 mg/dL (8.6-10.8) 07/14/16 04:24 Magnesium 2.3 mg/dL (1.6-2.6) 07/13/16 04:11 Urine Creatinine 59 mg/dL 07/13/16 21:00 Urine Total Protein 66 mg/dL (1-14) H 07/13/16 21:00 Consult Discharge Plan - Plan Referrals: Aliyah Prado, MONOLOGIST [Primary Care Provider] - (walk in facilities.. no need for an appointment.)
--- NOTE | 2016-07-14 09:50 | Rheumatology Progress Note ---
Date of Encounter: 07/14/16 Time of Encounter: 09:10 Rheumatology Assess and Plan (1) Diffuse pulmonary alveolar hemorrhage Current Visit: Yes Status: Acute Stable thought still requiring considerable oxygen and short of breath. 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 - Elevated creatinine with 1 gram of proteinuria on jackelyn prot:cr ratio; has other risk factors such as poorly controlled diabetes - Need to continue having a suspicion for systemic vasculitis or systemic autoimmune etiology - Would recommend nephrology consultation to evaluate proteinuria to see if they feel a biopsy is warranted - I discussed with pulmonary and would recommend switching to po prednisone 60 mg daily if they feel this is ok. - Await further serologies and nephrology input - I will be returning Sunday and away on Sunday and Sunday (2) Renal insufficiency Current Visit: Yes Status: Acute Mild elevated creatinine from baseline with associated proteinuria. She has risk factors for elevations in creatinine such as atrial fibrillation but need to consider other systemic causes. She also has baseline diabetes. Await nephrology input. (3) CORINNE positive Current Visit: Yes Status: Acute CORINNE 1:1280, previously positive at 1:320 on outpatient referral notes; she has negatives in the chart as well. Complements normal. Review of systems prior to this acute incident not suggestive of obvious connective tissue disease. Await DARCI panel and nephrology opinion as biopsy could be helpful. (4) Proteinuria Current Visit: Yes Status: Acute Await nephrology input; she has other risk factors that could explain as well Qualifiers: Proteinuria type: isolated Isolated proteinuria type: with unspecified morphologic lesion Qualified Code(s): N06.9 - Isolated proteinuria with unspecified morphologic lesion (5) Diabetes mellitus type 2, uncontrolled Current Visit: Yes Status: Chronic Close monitoring per hospital medicine team appreciated given prednisone use. Qualifiers: Diabetes mellitus complication status: with neurologic complications Diabetes mellitus complication detail: with unspecified neuropathy Diabetes mellitus group home insulin use: with group home use Qualified Code(s): E11.40 - Type 2 diabetes mellitus with diabetic neuropathy, unspecified; E11.65 - Type 2 diabetes mellitus with hyperglycemia; Z79.4 - detention (current) use of insulin - Subjective Interval history: Patient is seen and examined at bedside. She is still on high flow oxygen 60%. She reports some improvement in her shortness of breath; no pain with deep breathing but still having a cough. She is still on diltiazem for heart rate as well. She states she does not feel feverish, has no joint pain or swelling, no new rashes. ROS General - No fevers/no chills Eyes - no red/painful eyes ENT - no oral ulcerations, no nasal ulcerations, no tongue pain or throat burning Heart - Reports rapid heart rate but no chest pain Lungs - + for shortness of breath and for cough Skin - No new rashes, no ulcerations MSK - Chronic knee pain, chronic back pain, no swelling Neuro - No paresthesias, no muscle weakness Exam Vital Signs, Last 4 Hours Temp Pulse Resp BP Pulse Ox 07/14/16 07:31 97.6 F 117 17 178/78 92 Exam: General - Patient is alert and oriented, sitting up in bed, no acute distress Eyes - Conjunctiva clear Lymph - no cervical lymphadenopathy noted Heart - Irregular in rate and rhythm with no murmurs Lungs - Bibasilar crackles noted, no wheezes Abdomen - Obese, unable to appreciate any hepatosplenomegaly and no tenderness Skin - Tattoos noted, no rashes, no cutaneous ulcerations noted MSK - Resolution of right hand swelling, no synovitis, no joint tenderness of small joints of hands, wrists Objective Data 07/14/16 04:24 07/14/16 04:24 Immunology Rheumatoid Factor < 15 IU/mL (0-29) 07/11/16 17:44 Cycl Citrul Peptide IgG 12 Units (0-19) 07/11/16 17:44 CORINNE Screen DETECTED (None Detected) A 07/11/16 17:44 CORINNE Titer 1:1280 (<1:40) H 07/11/16 17:44 Scl-70 IgG Ab 0 AU/mL (0-40) 07/11/16 17:44 Complement C3 138 mg/dL (88-201) 07/11/16 17:44 Complement C4 22 mg/dL (10-40) 07/11/16 17:44 All other labs normal. - VTE Documentation of Mechanical Device: Intermittent pneumatic compression device Consult Discharge Plan - Plan Referrals: Aliyah Prado, COMMUNITY HEALTH AGENT [Primary Care Provider] - (walk in facilities.. no need for an appointment.)
--- NOTE | 2016-07-14 11:22 | Cardiology Progress Note ---
Date of Encounter: 07/14/16 Time of Encounter: 10:30 Assessment and Plan (1) Diffuse pulmonary alveolar hemorrhage Current Visit: Yes Status: Acute Per cardiology: -Patient with hemoptysis. -Alveolar hemmorhage diagnosed. -Pulmonary following. -Admits to continuing to cough up blood, but states it is less in quantity than at admission, -Unable to anti-coagulate due to hemorrhage. (2) Acute on chronic respiratory failure with hypoxia Current Visit: Yes Status: Acute Per cardiology: -On steroids, and high flow O2. -Conversational dyspnea noted. -Pulmonary following. -Suspect may be contributing to atrial fibrillation with RVR. (3) Atrial fibrillation with RVR Current Visit: Yes Status: Acute Per cardiology: -A.fib RVR noted with average HR previous 12 hours noted to be 110. -On cardizem drip at 7.5.mg/hour. -Denies palpitations. -Not on beta dimple due to acute respiratory failure. -[id number] score 4 (age, HTN, female, Dm), would normally recommend [facility] antico[facility], however unable to anticoagulate due to alveolar hemmorrhage, hemoptysis, Hemoglobin 7.9, required 1 PRBC transfusion this admission. Patient and family educated on increased risk of stroke/emboli with atrial fibrillation and educated on why no anticoagulation is being given. Pateint and family state understanding anf agree with plan. -Suspect may be difficult to rate control due to respiratory failure, acute blood loss, anemia. -Recommend titrating cardizem drip. -Will continue to follow and monitor HR. (4) Anemia Current Visit: Yes Status: Acute Per cardiology: -Hemoglobin 7.9 today. -Has received 1 PRBC transfusion this admission. -Suspect may be contributing to atrial fibrillation. -Management per primary services. Qualifiers: Anemia type: unspecified type Qualified Code(s): D64.9 - Anemia, unspecified (5) Elevated troponin Current Visit: Yes Status: Acute Per cardiology: -Troponin 0.05, 0.28 , 0.37, 0.18--now downtrending, in setting of PNA, acute on chronic respiratory failure, sepsis, alveolar hemorrhage, A-Fib with RVR. Likely secondary to demand ischemia, nondiagnostic for ACS. -Echo with preserved EF 60-65%. -ON statin and calcium channel dimple. -No asa due to alveolar hemmorrhage. No beta dimple due to respiratory failure. -Denies current chest pain. -ECG with no ischemic changes. -No cardiac rehab warranted. Discussion w patient/family: The assessment and plan as outlined above was discussed with the patient and/or family members who expressed understanding and agreement. All questions were answered. Thank you for involving us in the care of your patient. Please call with any questions. Discussed and reviewed with Dr.John Maurer. Subjective Principal diagnosis: hemoptysis Interval history: Ms. Graham presented to [facility] with complaints of hemoptysis. Patient with alveolar hemorrhage and respiratory failure. Pulmonary following patient. Cardiology was previously consulted for atrial fibrillation with RVR, medications were changed and cardiology signed off. Cardiology has been asked to re-evaluate this patient due to recurrent atrial fibrillation with RVR. Patient denies palpitations or chest pain. Patient states her breathing is not much better today. Patient reports she is still coughing up blood, she states this has lessend in quantity since admission. Objective Vital Signs, Last 4 Hours Temp Pulse Resp BP Pulse Ox 07/14/16 11:21 97.5 F L 119 20 160/69 92 07/14/16 07:31 97.6 F 117 17 178/78 92 General: Conversant (Conversational dyspnea noted. ) HEENT: Atraumatic, Normocephaly, Mucus Membranes Moist Neck: No JVD, Normal carotid pulses Cardiac: Other (Irregularly, irregular) Lungs: Normal Breath Sounds, No Wheeze, Rales, Rhonchi Neuro: Alert and responsive, No focal deficits noted Abdomen: Soft, Non-Tender Skin: No rashes noted on visualized skin Musculoskeletal: No Chest Wall Tenderness Extremities: No Clubbing, No Cyanosis, Normal Pulses, Other (Mild bilateral lower extremity non-pitting edema) Results 07/14/16 04:24 07/14/16 04:24 Lab Results Active Medications Acetaminophen (Tylenol) 650 mg PO Q6HR PRN PRN Reason: Mild Pain (1-3) Stop: 01/10/17 08:34 Last Admin: 07/13/16 15:16 Dose: 650 mg Acetaminophen/Hydrocodone Bitart (Heber 5-325 Mg) 1 tab PO Q4HR PRN PRN Reason: Moderate Pain (4-6) Stop: 01/10/17 08:34 Last Admin: 07/12/16 20:30 Dose: 1 tab Albuterol Sulfate (Proventil Neb) 2.5 mg IH [id number] PRN; Protocol PRN Reason: Shortness Of Breath/Wheezing Stop: 01/11/17 11:10 Last Admin: 07/12/16 19:30 Dose: 2.5 mg Clonidine HCl (Clonidine Hcl) 0.2 mg PO BID SHERON Stop: 01/10/17 14:46 Last Admin: 07/14/16 08:14 Dose: 0.2 mg Cyclobenzaprine HCl (Flexeril) 5 mg PO BID PRN PRN Reason: Muscle Spasm Stop: 01/12/17 15:40 Last Admin: 07/13/16 19:45 Dose: 5 mg Dextrose/Water (Dextrose 50% (Syg)) 25 ml IVP AD PRN PRN Reason: Hypoglycemia Stop: 01/10/17 08:37 Diltiazem HCl (Cardizem) 60 mg PO Q6H SHERON Stop: 01/12/17 17:31 Last Admin: 07/14/16 05:30 Dose: 60 mg Glucagon (Glucagen) 1 mg IM ONCE PRN PRN Reason: Hypoglycemia Stop: 01/10/17 08:37 Glucose (Gluctose) 15 gm PO ONCE PRN PRN Reason: Hypoglycemia Stop: 01/10/17 08:37 Glucose (Gluctose) 30 gm PO ONCE PRN PRN Reason: Hypoglycemia Stop: 01/10/17 08:37 Hydralazine HCl (Hydralazine) 10 mg IVP Q6HR PRN PRN Reason: Hypertension Stop: 01/10/17 14:40 Last Admin: 07/14/16 05:30 Dose: 10 mg Dextrose (Dextrose 5%) 1,000 mls @ 100 mls/hr IVC .Q10H PRN PRN Reason: HYPOGLYCEMIA Stop: 01/10/17 08:37 Diltiazem HCl 125 mg/ Dextrose 125 mls @ 5 mls/hr IVC .Q24H SHERON; 5 MG/HR PRN Reason: Protocol Stop: 01/11/17 17:46 Last Admin: 07/14/16 08:00 Dose: 7.5 mg/hr, 7.5 mls/hr Levofloxacin/Dextrose (Levaquin Premix 750mg/150 Ml) 750 mg in 150 mls @ 100 mls/hr IVPB Q48H [facility] PRN Reason: Protocol Stop: 01/14/17 08:01 Insulin Detemir (Levemir) 40 unit SQ BID [facility] Stop: 01/13/17 21:01 Insulin Human Lispro (Humalog) 0 units SQ TIDAC [facility] PRN Reason: Protocol Stop: 01/10/17 11:31 Last Admin: 07/14/16 08:03 Dose: 10 units Insulin Human Lispro (Humalog) 0 units SQ HS [facility] PRN Reason: Protocol Stop: 01/10/17 21:01 Last Admin: 07/13/16 21:42 Dose: 6 units Insulin Human Lispro (Humalog) 10 units SQ TIDWM [facility] Stop: 01/12/17 12:01 Last Admin: 07/14/16 08:03 Dose: 10 units Isosorbide Mononitrate (Imdur) 60 mg PO DAILY [facility] Stop: 01/10/17 14:46 Last Admin: 07/14/16 08:14 Dose: 60 mg Levothyroxine Sodium (Synthroid) 125 mcg PO DAILY@0630 [facility] Stop: 01/11/17 06:31 Last Admin: 07/14/16 05:31 Dose: 125 mcg Naloxone HCl (Narcan) 0.4 mg IVP Q2MIN PRN PRN Reason: Opioid Reversal Stop: 01/10/17 08:34 Omeprazole (Prilosec) 40 mg PO DAILY@0730 [facility] PRN Reason: Protocol Stop: 01/13/17 07:31 Last Admin: 07/14/16 08:15 Dose: 40 mg Ondansetron HCl (Zofran) 4 mg IVP Q8HR PRN PRN Reason: Nausea And Vomiting Stop: 01/10/17 08:34 Oxycodone/Acetaminophen (Percocet 10/325) 1 each PO Q4HR PRN PRN Reason: Severe Pain (7-10) Stop: 01/12/17 10:36 Prednisone (Prednisone) 30 mg PO BIDWM [facility] Stop: 01/13/17 17:01 Rosuvastatin Calcium (Crestor) 40 mg PO HS [facility] Stop: 01/10/17 21:01 Last Admin: 07/13/16 21:41 Dose: 40 mg Laboratory Tests 06/10/15 03/29/16 07/11/16 04:30 04:46 09:07 WBC 24.7 H Hgb 13.6 9.3 L Creatinine Magnesium Troponin I 07/11/16 07/11/16 07/12/16 12:05 17:44 01:02 WBC Hgb Creatinine 1.21 H Magnesium Troponin I 0.28 H* 0.37 H* 07/12/16 07/13/16 07/13/16 01:06 04:11 04:11 WBC 18.4 H Hgb 8.3 L Creatinine Magnesium 2.3 Troponin I 0.18 H* 07/14/16 07/14/16 04:24 04:24 WBC 29.3 H D Hgb 7.9 L Creatinine 1.59 H Magnesium Troponin I - Imaging and Cardiology Chest Xray: report reviewed Echo: report reviewed - EKG Interpretation EKG results cardiology: personally reviewed (ECG reviewed with atrial fibrillation, HR 133.), other (Telemetry reviewed with average HR previous 12 hours noted to be 110, atrial fibrillation. PVCs and couplets noted.) - VTE Documentation of Mechanical Device: Intermittent pneumatic compression device Consult Discharge Plan - Plan Referrals: Aliyah Prado, DISTRICT GAUGER [Primary Care Provider] - (walk in facilities.. no need for an appointment.)
--- NOTE | 2016-07-14 15:01 | Internal Med Progress Note ---
Date of Encounter: 07/14/16 Time of Encounter: 14:58 - Assessment and plan (1) Diffuse pulmonary alveolar hemorrhage Current Visit: Yes Status: Acute Assessment and plan: on systemic steroids and oxygen therapy. on levaquin due to possible concomitant infection, follow cultures. follow pulmonology input. rheum following. proteinuria, nephrology involved. bun elevated likely due to steroids. (2) Diabetes mellitus type 2, uncontrolled Current Visit: Yes Status: Chronic Assessment and plan: due to systemic steroids, increase insulin dose to 40 units bid. continue monitring. 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 Qualifiers: Qualified Code(s): I48.2 - Chronic atrial fibrillation - Subjective Interval history: no fever, feels better, speaking full sentences, family members at bedside. - Constitutional Vitals: Temp Pulse Resp BP Pulse Ox 98.8 F 86 20 114/63 94 07/14/16 11:28 07/14/16 11:28 07/14/16 11:28 07/14/16 11:28 07/14/16 11:28 General appearance: Present: A&O X 3, pleasant, no acute distress - Head Head exam: Present: atraumatic, normocephalic - Eye Eye exam: Present: PERRL, conjuntiva pink, sclera anicteric Pupils: Present: PERRL - Neck Neck exam general surgery: Present: supple, trachea midline. Absent: lymphadenopathy - Respiratory Respiratory exam: Present: decreased breath sounds. Absent: accessory muscle use, rales, wheezes - Cardiovascular Cardiovascular exam: Present: RRR, +S1, +S2. Absent: diastolic murmur, gallop, rubs, systolic murmur - GI/Abdominal GI/Abdominal exam: Present: normal bowel sounds, soft, no peritoneal signs. Absent: distended, tenderness - Extremities Exam Extremities exam: Present: warm, radial pulses palpable and symetrical. Absent : calf tenderness, cyanotic, pedal edema - Neurological Exam Neurological exam: Present: CN II-XII intact, oriented X3, no focal deficits. Absent: pronater drift, facial droop, speech deficit - Skin Skin exam: Present: dry, intact Internal Medicine: Result - Labs CBC & Chem 7: 07/14/16 04:24 07/14/16 04:24 Labs: Short CBC 07/14/16 Range/Units 04:24 WBC 29.3 H D (4.3-11.1) K/mcL Hgb 7.9 L (11.5-15.4) g/dL Hct 24.9 L (35.3-44.9) % Plt Count 353 (140-400) K/mcL Neutrophils # 27.1 H (1.6-8.9) K/mcL BMP 07/14/16 04:24 Sodium 136 Potassium 3.9 Chloride 105 Carbon Dioxide 16 L BUN 44 H Creatinine 1.59 H Glucose 288 H Calcium 10.2 Urine 07/13/16 Range/Units 21:00 Urine Color Yellow (Yellow) Urine Clarity Cloudy A (Clear) Urine pH 6.0 (5.0-8.0) pH Units Ur Specific Smilax 1.025 (1.010-1.025) Urine Protein 100 H (Neg-Trace) mg/dL Urine Glucose (UA) >=1000 H (Normal) mg/dL - ABG Interpretation ABG results: PT/INR, D-dimer PT 16.9 Seconds (9.4-12.1) H 07/12/16 01:02 - VTE Documentation of Mechanical Device: Intermittent pneumatic compression device Consult Discharge Plan - Plan Referrals: Aliyah Prado, EMPLOYEE RELATIONS ASSISTANT [Primary Care Provider] - (walk in facilities.. no need for an appointment.)
[2016-07-14] MEDS: predniSONE 10 MG TABLET PO SCH (16:15)
[2016-07-14] MEDS: *HR* LORazepam 0.5 MG TABLET PO PRN ×2 (16:15→23:43)
[2016-07-14] MEDS ORDERED: Insulin DETEMIR 100 UNIT/ML X5UNITS SQ SCH (21:00)
[2016-07-15 03:25] LABS: Hemoglobin 7.5 g/dL (11.5-15.4); Immature Granulocytes % 3.6 % (0-4); Nucleated Red Blood Cells 0.3 /100 WBC (0); Segmented Neutrophils % 88.8 %
[2016-07-15 03:27] LABS: Basophils % 0.1 %; Lymphocytes # 1.1 K/mcL (0.6-4.6); Lymphocytes % 4.2 %; Mean Corpuscular HGB Conc 31.3 g/dL (31.6-35.5); Mean Corpuscular Hemoglobin 25.9 pg (28.0-33.3); Mean Corpuscular Volume 82.8 fL (83.0-100.0); Mean Platelet Volume 9.9 fL (9.4-12.4); Monocytes # 0.9 K/mcL (0.0-1.3); Monocytes % 3.3 %; Neutrophils # 23.2 K/mcL (1.6-8.9); Platelet Count 368 K/mcL (140-400); Red Cell Distribution Width 18.2 % (11.5-14.5)
[2016-07-15 03:40] LABS: Calcium 10.2 mg/dL (8.6-10.8); Potassium 4.1 mEq/L (3.5-4.5)
[2016-07-15] MEDS: *HR* OxyCODONE/APAP 10/325 TABLET PO PRN (03:48)
[2016-07-15 03:58] LABS: Platelet Estimate Normal (Normal)
[2016-07-15 04:02] LABS: Thyroid Stimulating Hormone 0.072 mcIU/mL (0.350-4.840)
[2016-07-15] MEDS ORDERED: 0.9 % Sodium Chloride 1,000 ML ONE (06:56)
[2016-07-15] MEDS: Insulin LISPRO 300 UNITS/3 ML VIAL SQ SCH ×7 (07:51→21:12)
[2016-07-15] MEDS: predniSONE 10 MG TABLET PO SCH ×2 (07:52→16:58)
[2016-07-15] MEDS: cloNIDine HCl 0.1 MG TABLET PO SCH ×3 (07:52→19:51)
[2016-07-15] MEDS: Isosorbide MONOnitrate (24 HR) 60 MG TAB.ER.24H PO SCH (07:53)
[2016-07-15] MEDS: Levofloxacin 750 MG/150 ML 750 MG/150 ML BAG IVPB SCH (07:53)
--- NOTE | 2016-07-15 08:39 | Pulmonology Progress Note ---
Date of Encounter: 07/15/16 Time of Encounter: 08:00 Assessment and Plan (1) Diffuse pulmonary alveolar hemorrhage Current Visit: Yes Status: Acute This is improving, however she still have some dark clot and continue current treatment with systemic steroid. I agree with rheumatology and nephrology recommendations. (2) Hemoptysis Current Visit: Yes Status: Resolved (3) Atrial fibrillation Current Visit: Yes Status: Chronic Qualifiers: Atrial fibrillation type: chronic Qualified Code(s): I48.2 - Chronic atrial fibrillation Subjective Principal diagnosis: hemoptysis Interval history: Patient is feeling better, however she still have hemoptysis with clot and no fresh blood. Objective PUL Vital signs: Last Vital Signs Temp 97.4 F L 07/15/16 07:43 Pulse 89 07/15/16 07:43 Resp 22 07/15/16 07:43 BP 142/66 07/15/16 07:43 Pulse Ox 92 07/15/16 07:43 General appearance: no acute distress Eyes: nonicteric ENT: oropharynx moist Neck: supple, no lymphadenopathy Effort: normal Auscultation: left: clear, right: rales Percussion: bilateral: not dull Cardiovascular: irregular rhythm Gastrointestinal: normoactive bowel sounds, non-distended Extremities: no cyanosis normal mental status, non-focal exam mood appropriate Results - Laboratory Findings CBC and BMP: 07/15/16 02:58 07/15/16 02:58 PT/INR, D-dimer PT 16.9 Seconds (9.4-12.1) H 07/12/16 01:02 Abnormal lab findings: Abnormal lab results WBC 26.1 K/mcL (4.3-11.1) H 07/15/16 02:58 RBC 2.90 M/mcL (3.82-4.97) L 07/15/16 02:58 Hgb 7.5 g/dL (11.5-15.4) L 07/15/16 02:58 Hct 24.0 % (35.3-44.9) L 07/15/16 02:58 MCV 82.8 fL (83.0-100.0) L 07/15/16 02:58 MCH 25.9 pg (28.0-33.3) L 07/15/16 02:58 MCHC 31.3 g/dL (31.6-35.5) L 07/15/16 02:58 RDW 18.2 % (11.5-14.5) H 07/15/16 02:58 Neutrophils # 23.2 K/mcL (1.6-8.9) H 07/15/16 02:58 Nucleated RBCs/100 WBC 0.3 /100 WBC (0) H 07/15/16 02:58 Hypersegmented Neuts Present (Not Present) A 07/14/16 04:24 Poikilocytosis 1+ (Not Present) A 07/14/16 04:24 Anisocytosis 1+ (Not Present) A 07/14/16 04:24 Stomatocytes 1+ (Not Present) A 07/14/16 04:24 ESR 58 mm/hr (0-15) H 07/14/16 04:24 PT 16.9 Seconds (9.4-12.1) H 07/12/16 01:02 BUN 46 mg/dL (7-20) H 07/15/16 02:58 Creatinine 1.47 mg/dL (0.57-1.11) H 07/15/16 02:58 Est GFR ( Amer) 44 (> 60) L 07/15/16 02:58 Est GFR (Non-Af Amer) 36 (> 60) L 07/15/16 02:58 BUN/Creatinine Ratio 31 (6-26) H 07/15/16 02:58 Glucose 192 mg/dL (70-99) H 07/15/16 02:58 POC Glucose 298 (58-89) H 07/15/16 07:39 Hemoglobin A1c 7.6 % (-5.6) H 07/11/16 12:05 Calculated Osmolality 305 (280-300) H 07/15/16 02:58 Troponin I 0.18 ng/mL (0-0.03) H* 07/12/16 01:06 C-Reactive Protein 278 mg/L (Less than 5) H 07/12/16 01:02 TSH 0.072 mcIU/mL (0.350-4.840) L 07/15/16 02:58 PTH Intact 158.3 pg/ml (8.5-72.5) H 07/15/16 02:58 Urine Clarity Cloudy (Clear) A 07/13/16 21:00 Urine Protein 100 mg/dL (Neg-Trace) H 07/13/16 21:00 Urine Glucose (UA) >=1000 mg/dL (Normal) H 07/13/16 21:00 Urine Blood Moderate (Negative) H 07/13/16 21:00 Urine Microscopic WBC 3-5 per hpf (0-3) H 07/13/16 21:00 Ur Squamous Epith Cells Many per lpf (None-Few) H 07/13/16 21:00 Microalb/Creat Ratio 405 (0-30) H 07/13/16 21:00 Protein/Creatinin Ratio 1.12 mg/mg (0-0.20) H 07/13/16 21:00 Urine Total Protein 66 mg/dL (1-14) H 07/13/16 21:00 Fluid Appearance Cloudy (Clear) A 07/11/16 16:47 Vancomycin Trough 9.8 mcg/mL (10-20) L 07/13/16 10:43 CORINNE Screen DETECTED (None Detected) A 07/11/16 17:44 CORINNE Titer 1:1280 (<1:40) H 07/11/16 17:44 - Microbiology Findings Microbiology Findings: Microbiology, Last 48 Hours 07/13/16 12:30 Sputum Culture - Preliminary Sputum 07/11/16 16:47 Respiratory Culture - Final Right Lower Lobe Lung Normal upper respiratory tract juan m. No apparent pathogens isolated. 07/11/16 16:47 Gram Stain - Final Right Lower Lobe Lung 07/11/16 09:07 Blood Culture - Preliminary Peripheral Venipuncture No growth. 07/11/16 16:47 Acid Fast Stain - Final Right Lower Lobe Lung - Clinical Findings Intake & Output: Intake & Output 07/14/16 07/15/16 07/15/16 23:59 07:59 15:59 Intake Total 345.9 / 345.9 330.4 / 330.4 Output Total 300 / 300 0 / 0 Balance 45.9 / 45.9 330.4 / 330.4 Weight 94 kg - VTE Documentation of Mechanical Device: Intermittent pneumatic compression device Consult Discharge Plan - Plan Referrals: Aliyah Prado, BEER MAKER [Primary Care Provider] - (walk in facilities.. no need for an appointment.)
[2016-07-15] MEDS: Insulin DETEMIR 100 UNIT/ML X5UNITS SQ SCH ×2 (09:27→21:14)
--- NOTE | 2016-07-15 10:19 | Internal Med Progress Note ---
Date of Encounter: 07/15/16 Time of Encounter: 10:16 - Assessment and plan (1) Diffuse pulmonary alveolar hemorrhage Current Visit: Yes Status: Acute Assessment and plan: on systemic steroids, dose has been decreased, and oxygen therapy. on levaquin due to possible concomitant infection, follow cultures. follow pulmonology input. rheum following. proteinuria, nephrology involved. bun elevated likely due to steroids, possible kidney biopsy , will transfuse 2 units of prbc to optimize hb, goal of 9g for possible kidney biopsy. autoimmune workup ongoing. (2) Diabetes mellitus type 2, uncontrolled Current Visit: Yes Status: Chronic Assessment and plan: due to systemic steroids, today i increased insulin dose to 44 units bid. continue monitring. 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 Qualifiers: Atrial fibrillation type: chronic Qualified Code(s): I48.2 - Chronic atrial fibrillation - Subjective Interval history: no fever, states that does not feel better, speaking full sentences. stil productive cpugh,still hemoptysis as per her. - Constitutional Vitals: Temp Pulse Resp BP Pulse Ox 97.4 F L 89 22 142/66 92 07/15/16 07:43 07/15/16 07:43 07/15/16 07:43 07/15/16 07:43 07/15/16 07:43 General appearance: Present: A&O X 3, pleasant, no acute distress - Head Head exam: Present: atraumatic, normocephalic - Eye Eye exam: Present: PERRL, conjuntiva pink, sclera anicteric Pupils: Present: PERRL - Neck Neck exam general surgery: Present: supple, trachea midline. Absent: lymphadenopathy - Respiratory Respiratory exam: Present: decreased breath sounds, rhonchi. Absent: accessory muscle use, rales, wheezes - Cardiovascular Cardiovascular exam: Present: RRR, +S1, +S2. Absent: diastolic murmur, gallop, rubs, systolic murmur - GI/Abdominal GI/Abdominal exam: Present: normal bowel sounds, soft, no peritoneal signs. Absent: distended, tenderness - Extremities Exam Extremities exam: Present: warm, radial pulses palpable and symetrical. Absent : calf tenderness, cyanotic, pedal edema - Neurological Exam Neurological exam: Present: CN II-XII intact, oriented X3, no focal deficits. Absent: pronater drift, facial droop, speech deficit - Skin Skin exam: Present: dry, intact Internal Medicine: Result - Labs CBC & Chem 7: 07/15/16 02:58 07/15/16 02:58 Labs: Short CBC 07/15/16 Range/Units 02:58 WBC 26.1 H (4.3-11.1) K/mcL Hgb 7.5 L (11.5-15.4) g/dL Hct 24.0 L (35.3-44.9) % Plt Count 368 (140-400) K/mcL Neutrophils # 23.2 H (1.6-8.9) K/mcL BMP 07/15/16 02:58 Sodium 139 Potassium 4.1 Chloride 109 Carbon Dioxide 20 BUN 46 H Creatinine 1.47 H Glucose 192 H Calcium 10.2 - ABG Interpretation ABG results: PT/INR, D-dimer PT 16.9 Seconds (9.4-12.1) H 07/12/16 01:02 - VTE Documentation of Mechanical Device: Intermittent pneumatic compression device Consult Discharge Plan - Plan Referrals: Aliyah Prado, WAREDRESSER [Primary Care Provider] - (walk in facilities.. no need for an appointment.)
[2016-07-15 10:28] LABS: Myeloperoxidase Ab 44 AU/mL (0-19); Serine Protease-3 Antibody 5 AU/mL (0-19)
[2016-07-15] MEDS ORDERED: 0.9 % Sodium Chloride 500 ML ONE ×2 (11:01→18:25)
[2016-07-15] MEDS: Albuterol 2.5 MG/3 ML NEBULIZER IH PRN ×2 (13:05→20:42)
--- NOTE | 2016-07-15 13:15 | Cardiology Progress Note ---
Date of Encounter: 07/15/16 Time of Encounter: 12:15 Assessment and Plan (1) Atrial fibrillation with RVR Current Visit: Yes Status: Acute Now rate controlled on IV cardizem gtt at 5 mg/hr--will transition to oral dose. 12 hour tele: avg HR=97, HR 80's upon exam. Betablocker re-started this AM per primary service. Continue to increase cardizem as BP will allow to improve rate control Suspect difficulty with rate control until acute illness resolved. TSH abnormal, defer to primary service. -[id number] score 4 (age, HTN, female, Dm), would normally recommend watermaster anticoagulation, however unable to anticoagulate due to alveolar hemorrhage, hemoptysis, and anemia. Plan for additional PRBC transfusion today. Patient and family educated on increased risk of stroke/emboli with atrial fibrillation and educated on why no anticoagulation is being given. Pateint and family state understanding and agrees with plan. (2) Diffuse pulmonary alveolar hemorrhage Current Visit: Yes Status: Acute With associated anemia. Pulmonology, Rheumatology, and Nephrology following. Discussion w patient/family: The assessment and plan as outlined above was discussed with the patient and/or family members who expressed understanding and agreement. All questions were answered. Thank you for involving us in the care of your patient. Please call with any questions. The patient was discussed and reviewed with Dr. Deb Maurer; Cardiology will sign-off, please call with questions. Subjective Principal diagnosis: hemoptysis Interval history: Seen and examined. Continue to have difficulty breathing and hemoptysis. Denies chest pain or discomfort. On non-breather. Objective Vital Signs, Last 4 Hours Temp Pulse Resp BP Pulse Ox 07/15/16 13:08 25 90 07/15/16 10:42 97.3 F L 87 22 139/71 89 General: Conversant, Other (conversational dypsnea noted. ) Cardiac: Other (irregularr irregular) Lungs: Other (Coarse breath sounds throughout) Neuro: Alert and responsive Abdomen: Soft Skin: No rashes noted on visualized skin Musculoskeletal: No Chest Wall Tenderness Extremities: No Edema, Normal Pulses Results 07/15/16 02:58 07/15/16 02:58 Lab Results 07/15/16 07/15/16 02:58 02:58 WBC 26.1 H Hgb 7.5 L Hct 24.0 L Plt Count 368 Sodium 139 Potassium 4.1 Chloride 109 Carbon Dioxide 20 BUN 46 H Creatinine 1.47 H Glucose 192 H Calcium 10.2 TSH 0.072 L Active Medications Acetaminophen (Tylenol) 650 mg PO Q6HR PRN PRN Reason: Mild Pain (1-3) Stop: 01/10/17 08:34 Last Admin: 07/13/16 15:16 Dose: 650 mg Acetaminophen/Hydrocodone Bitart (Bellflower 5-325 Mg) 1 tab PO Q4HR PRN PRN Reason: Moderate Pain (4-6) Stop: 01/10/17 08:34 Last Admin: 07/12/16 20:30 Dose: 1 tab Albuterol Sulfate (Proventil Neb) 2.5 mg IH [id number] PRN; Protocol PRN Reason: Shortness Of Breath/Wheezing Stop: 01/11/17 11:10 Last Admin: 07/15/16 13:05 Dose: 2.5 mg Clonidine HCl (Clonidine Hcl) 0.2 mg PO TID [facility] Stop: 01/14/17 09:01 Last Admin: 07/15/16 07:52 Dose: 0.2 mg Cyclobenzaprine HCl (Flexeril) 5 mg PO BID PRN PRN Reason: Muscle Spasm Stop: 01/12/17 15:40 Last Admin: 07/13/16 19:45 Dose: 5 mg Dextrose/Water (Dextrose 50% (Syg)) 25 ml IVP AD PRN PRN Reason: Hypoglycemia Stop: 01/10/17 08:37 Diltiazem HCl (Cardizem Cd) 180 mg PO DAILY [facility] Stop: 01/14/17 13:16 Glucagon (Glucagen) 1 mg IM ONCE PRN PRN Reason: Hypoglycemia Stop: 01/10/17 08:37 Glucose (Gluctose) 15 gm PO ONCE PRN PRN Reason: Hypoglycemia Stop: 01/10/17 08:37 Glucose (Gluctose) 30 gm PO ONCE PRN PRN Reason: Hypoglycemia Stop: 01/10/17 08:37 Hydralazine HCl (Hydralazine) 10 mg IVP Q6HR PRN PRN Reason: Hypertension Stop: 01/10/17 14:40 Last Admin: 07/15/16 05:16 Dose: 10 mg Dextrose (Dextrose 5%) 1,000 mls @ 100 mls/hr IVC .Q10H PRN PRN Reason: HYPOGLYCEMIA Stop: 01/10/17 08:37 Levofloxacin/Dextrose (Levaquin Premix 750mg/150 Ml) 750 mg in 150 mls @ 100 mls/hr IVPB Q48H [facility] PRN Reason: Protocol Stop: 01/14/17 08:01 Last Admin: 07/15/16 07:53 Dose: 100 mls/hr Insulin Detemir (Levemir) 44 unit SQ BID [facility] Stop: 01/14/17 09:01 Last Admin: 07/15/16 09:27 Dose: 44 unit Insulin Human Lispro (Humalog) 0 units SQ TIDAC [facility] PRN Reason: Protocol Stop: 01/10/17 11:31 Last Admin: 07/15/16 12:08 Dose: 12 units Insulin Human Lispro (Humalog) 0 units SQ HS [facility] PRN Reason: Protocol Stop: 01/10/17 21:01 Last Admin: 07/14/16 21:31 Dose: 5 units Insulin Human Lispro (Humalog) 10 units SQ TIDWM [facility] Stop: 01/12/17 12:01 Last Admin: 07/15/16 12:08 Dose: 10 units Isosorbide Mononitrate (Imdur) 60 mg PO DAILY [facility] Stop: 01/10/17 14:46 Last Admin: 07/15/16 07:53 Dose: 60 mg Levothyroxine Sodium (Synthroid) 125 mcg PO DAILY@0630 [facility] Stop: 01/11/17 06:31 Last Admin: 07/15/16 05:16 Dose: 125 mcg Lorazepam (Ativan) 0.5 mg PO Q8H PRN PRN Reason: Anxiety Stop: 01/13/17 15:21 Last Admin: 07/14/16 23:43 Dose: 0.5 mg Metoprolol Tartrate (Lopressor) 25 mg PO BID [facility] Stop: 01/13/17 16:45 Last Admin: 07/15/16 07:52 Dose: 25 mg Naloxone HCl (Narcan) 0.4 mg IVP Q2MIN PRN PRN Reason: Opioid Reversal Stop: 01/10/17 08:34 Omeprazole (Prilosec) 40 mg PO DAILY@0730 [facility] PRN Reason: Protocol Stop: 01/13/17 07:31 Last Admin: 07/15/16 07:52 Dose: 40 mg Ondansetron HCl (Zofran) 4 mg IVP Q8HR PRN PRN Reason: Nausea And Vomiting Stop: 01/10/17 08:34 Oxycodone/Acetaminophen (Percocet 10/325) 1 each PO Q4HR PRN PRN Reason: Severe Pain (7-10) Stop: 01/12/17 10:36 Last Admin: 07/15/16 03:48 Dose: 1 each Prednisone (Prednisone) 30 mg PO BIDWM [facility] Stop: 01/13/17 17:01 Last Admin: 07/15/16 07:52 Dose: 30 mg Rosuvastatin Calcium (Crestor) 40 mg PO HS [facility] Stop: 01/10/17 21:01 Last Admin: 07/14/16 21:27 Dose: 40 mg - EKG Interpretation EKG results cardiology: personally reviewed - VTE Documentation of Mechanical Device: Intermittent pneumatic compression device Consult Discharge Plan - Plan Referrals: Aliyah Prado, MERCHANDISE PROCESSOR [Primary Care Provider] - (walk in facilities.. no need for an appointment.)
[2016-07-15] MEDS: Diltiazem CD (24hr) 180 MG CAPSULE PO SCH (15:15)
--- NOTE | 2016-07-15 16:17 | Nephrology Progress Note ---
Date of Encounter: 07/15/16 Time of Encounter: 14:00 - Assessment and Plan (1) Proteinuria Current Visit: Yes Status: Chronic Historically has had longstanding uncontrolled HTN dating back to 2012. Previously has seen my colleague Dr. Castillo in 2012 and ?2015 with accelerated HTN and VALERY, respectively. I found that her C3 and C4 and CORINNE were WNL back in 2012. UA in 2012 had no hematuria, but she even had proteinuria (in the microalbuminuric range) back then. Given the CORINNE and DAH, I agree with empiric steroids, as the DDx does include a GN, such as an AAV or AntiGBM. Serologies are largely pending. Planning for a renal biopsy on Sunday, and in the meantime , she needs improvement of her HTN (which is trending better today) and anemia ( goal Hgb is >9) for a safe renal biopsy. She did have crackles on exam and she voiced that she would not feel like she could lay prone (which is largely necessary for a renal biopsy), so I suspect there may be a hypervolemic volume status condition that could be contributing to the crackles vs potentially the DAH. Agree with the continues BIPAP. Nevertheless, will attempt to utilize a lower dose of lasix today 40mg po daily and after each unit of the PRBCs, I recommend lasix 10mg IV. Continue to follow a renal protective strategy. Thank you. Qualifiers: Proteinuria type: isolated Isolated proteinuria type: with unspecified morphologic lesion Qualified Code(s): N06.9 - Isolated proteinuria with unspecified morphologic lesion (2) CORINNE positive Current Visit: Yes Status: Acute See above (3) Anemia Current Visit: Yes Status: Acute See above Qualifiers: Anemia type: unspecified type Qualified Code(s): D64.9 - Anemia, unspecified (4) Atrial fibrillation with RVR Current Visit: Yes Status: Acute As per cardio and primary (5) Diffuse pulmonary alveolar hemorrhage Current Visit: Yes Status: Acute See above (6) Hematuria Current Visit: Yes Status: Acute (7) Chronic kidney disease, stage 3 Current Visit: Yes Status: Chronic See above (8) Hypertension Current Visit: Yes Status: Chronic See above Qualifiers: Hypertension type: essential hypertension Qualified Code(s): I10 - Essential (primary) hypertension Subjective Principal diagnosis: hemoptysis Interval history: Pt was s/e. She reported that her shortness of breath was "the same" as yesterday. Her floor RN reported hearing more rales on exam earlier today. The pt did not affirm uremic complaints such as N/V/D to me. 2 units of PRBCs were ordered but IV access has been limited and a PowerGlide has been attempted to be placed. Objective - Vital Signs Vital signs: Vital Signs Temp Pulse Resp BP Pulse Ox 07/15/16 15:56 97.6 F 88 22 177/68 90 07/15/16 15:41 97.9 F 97 22 178/84 87 07/15/16 13:08 25 90 07/15/16 10:42 97.3 F L 87 22 139/71 89 07/15/16 07:43 97.4 F L 89 22 142/66 92 07/15/16 03:42 97.5 F L 91 16 174/76 97 07/15/16 00:21 97.6 F 89 23 181/74 89 07/14/16 20:30 33 93 07/14/16 19:25 98.0 F 88 23 192/81 90 07/14/16 16:33 98.2 F 112 20 207/91 90 Intake and Output 07/15/16 07/15/16 07/15/16 07:59 15:59 23:59 Intake Total 330.4 / 330.4 594.5 / 594.5 Output Total 0 / 0 Balance 330.4 / 330.4 594.5 / 594.5 Intake: IV Fluids 60.4 / 60.4 114.5 / 114.5 Cardizem 125 MG In 60.4 / 60.4 14.5 / 14.5 Dextrose 5% 100 ML @ 5 MG /HR 5 mls/hr IVC .Q24H [facility] Rx#:[id number] Levaquin Premix 750mg/150 100 / 100 mL 750 mg In 150 ml @ 100 mls/hr IVPB Q48H [facility] Rx#:[id number] Oral 270 / 270 480 / 480 Blood Product 0 / 0 Rbcs Leuko Poor As-1 0 / 0 Unit [id number] Output: Urine 0 / 0 Other: Meal Breakfast Percent of Meal Consumed 95% Weight 94 kg Blood Glucose* 298 322 Patient Weight 07/15/16 23:59 Weight 94 kg - General Appearance General appearance: Present: well-developed, well-nourished, appears started age EENT: Present: ATNC, PERRL, mucous membranes moist Neck: Present: supple Respiratory: Present: rales, rhonchi Cardiology: Present: no edema, rapid rhythm, irregular rhythm, normal S1, normal S2 Gastrointestinal: Present: normoactive bowel sounds, no tenderness, no guarding Integumentary: Present: no rash, warm and dry Neurologic: Present: no focal deficit, no asterixis, alert and oriented x3 Musculoskeletal: Present: no deformities, no erythema, no cyanosis Psychiatric: Present: mood/affect appropriate, cooperative - Lab 07/15/16 02:58 07/15/16 02:58 Most recent lab results Calcium 10.2 mg/dL (8.6-10.8) 07/15/16 02:58 Magnesium 2.3 mg/dL (1.6-2.6) 07/13/16 04:11 Urine Creatinine 59 mg/dL 07/13/16 21:00 Urine Total Protein 66 mg/dL (1-14) H 07/13/16 21:00 - VTE Documentation of Mechanical Device: Intermittent pneumatic compression device Consult Discharge Plan - Plan Referrals: Aliyah Prado, BRUSH MACHINE SETTER [Primary Care Provider] - (walk in facilities.. no need for an appointment.)
[2016-07-15] MEDS ORDERED: Furosemide 20 MG/2 ML VIAL IVP ONE (16:19)
[2016-07-15] MEDS: Furosemide 40 MG TABLET PO SCH (16:58)
[2016-07-16] MEDS: *HR* OxyCODONE/APAP 10/325 TABLET PO PRN (03:02)
[2016-07-16 04:32] LABS: Basophils % 0.1 %; Hematocrit 29.6 % (35.3-44.9); Immature Granulocytes % 2.6 % (0-4); Lymphocytes # 0.8 K/mcL (0.6-4.6); Lymphocytes % 4.5 %; Mean Corpuscular HGB Conc 33.1 g/dL (31.6-35.5); Mean Corpuscular Hemoglobin 27.7 pg (28.0-33.3); Mean Corpuscular Volume 83.6 fL (83.0-100.0); Mean Platelet Volume 9.9 fL (9.4-12.4); Monocytes # 0.6 K/mcL (0.0-1.3); Monocytes % 3.4 %; Neutrophils # 16.6 K/mcL (1.6-8.9); Nucleated Red Blood Cells 0.3 /100 WBC (0); Platelet Count 268 K/mcL (140-400); Red Blood Count 3.54 M/mcL (3.82-4.97); Segmented Neutrophils % 89.4 %
[2016-07-16 04:34] LABS: Hemoglobin 9.8 g/dL (11.5-15.4)
[2016-07-16 05:42] LABS: Potassium 4.1 mEq/L (3.5-4.5)
[2016-07-16] MEDS: Diltiazem CD (24hr) 180 MG CAPSULE PO SCH (08:03)
[2016-07-16] MEDS: predniSONE 10 MG TABLET PO SCH (08:04)
[2016-07-16] MEDS: Isosorbide MONOnitrate (24 HR) 60 MG TAB.ER.24H PO SCH (08:04)
[2016-07-16] MEDS: Furosemide 40 MG TABLET PO SCH (08:04)
[2016-07-16] MEDS: cloNIDine HCl 0.1 MG TABLET PO SCH ×4 (08:04→22:06)
[2016-07-16] MEDS: Insulin DETEMIR 100 UNIT/ML X5UNITS SQ SCH (08:13)
--- NOTE | 2016-07-16 08:36 | Nephrology Progress Note ---
Date of Encounter: 07/16/16 Time of Encounter: 09:15 - Assessment and Plan (1) Proteinuria Current Visit: Yes Status: Chronic Uptitrate the Clonidine to 0.3mg po tid to continue to improve BP control in preparation for the renal biopsy tomorrow. I've added a low dose loop diuretic yesterday at 40mg po daily. 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 Discussed with the hospitalists and Pulmonology. NPO tonight for renal biopsy tomorrow. Continue to follow a renal protective strategy. Thank you. Qualifiers: Proteinuria type: isolated Isolated proteinuria type: with unspecified morphologic lesion Qualified Code(s): N06.9 - Isolated proteinuria with unspecified morphologic lesion (2) CORINNE positive Current Visit: Yes Status: Acute See above (3) Anemia Current Visit: Yes Status: Acute See above Qualifiers: Anemia type: unspecified type Qualified Code(s): D64.9 - Anemia, unspecified (4) Atrial fibrillation with RVR Current Visit: Yes Status: Acute As per cardio and primary (5) Diffuse pulmonary alveolar hemorrhage Current Visit: Yes Status: Acute See above (6) Hematuria Current Visit: Yes Status: Acute Secondary to AAV, most likely. (7) Chronic kidney disease, stage 3 Current Visit: Yes Status: Chronic Baseline CKD stage III. Has previously seen Dr. Castillo but was appears to have been lost to follow up. (8) Hypertension Current Visit: Yes Status: Chronic Longstanding uncontrolled HTN Qualifiers: Hypertension type: essential hypertension Qualified Code(s): I10 - Essential (primary) hypertension Subjective Principal diagnosis: hemoptysis Interval history: Pt was s/e. She reported feeling fine today and was sitting at the bedside. She did not affirm N/V/D. Her shortness of breath continues. Objective - Vital Signs Vital signs: Vital Signs Temp Pulse Resp BP Pulse Ox 07/16/16 07:45 97.6 F 76 18 161/80 96 07/16/16 04:33 97.6 F 86 18 166/80 97 07/16/16 04:10 20 96 07/15/16 22:27 97.6 F 85 18 175/78 96 07/15/16 20:42 19 89 07/15/16 18:46 97.9 F 87 20 182/88 91 07/15/16 18:31 97.6 F 86 20 185/81 88 07/15/16 18:30 97.6 F 86 20 185/81 88 07/15/16 15:56 97.6 F 88 22 177/68 90 07/15/16 15:41 97.9 F 97 22 178/84 87 07/15/16 13:08 25 90 07/15/16 10:42 97.3 F L 87 22 139/71 89 Intake and Output 07/15/16 07/16/16 07/16/16 23:59 07:59 15:59 Intake Total 947 / 947 150 / 150 Output Total 550 / 550 Balance 947 / 947 -400 / -400 Intake: IV Fluids 50 / 50 Levaquin Premix 750mg/150 50 / 50 mL 750 mg In 150 ml @ 100 mls/hr IVPB Q48H [facility] Rx#:[id number] Oral 240 / 240 150 / 150 Blood Product 657 / 657 Rbcs Leuko Poor As-1 400 / 400 Unit [id number] Rbcs Leuko Poor As-1 257 / 257 Unit [id number] Output: Urine 550 / 550 Other: Meal Dinner Percent of Meal Consumed 0% # Voids 1 Weight 88.405 kg Blood Glucose* 269 182 Patient Weight 07/16/16 23:59 Weight 88.405 kg - General Appearance General appearance: Present: well-developed EENT: Present: ATNC, PERRL, mucous membranes moist Neck: Present: supple Respiratory: Present: rales, course breath sounds, rhonchi Cardiology: Present: no edema, irregular rhythm, normal S1, normal S2 Gastrointestinal: Present: normoactive bowel sounds, no tenderness, no guarding Integumentary: Present: warm and dry Neurologic: Present: no focal deficit, no asterixis, alert and oriented x3 Musculoskeletal: Present: no deformities, no erythema, no cyanosis Psychiatric: Present: mood/affect appropriate, cooperative - Lab 07/16/16 04:20 07/16/16 05:05 Most recent lab results Calcium 10.0 mg/dL (8.6-10.8) 07/16/16 05:05 Magnesium 2.3 mg/dL (1.6-2.6) 07/13/16 04:11 Urine Creatinine 59 mg/dL 07/13/16 21:00 Urine Total Protein 66 mg/dL (1-14) H 07/13/16 21:00 - VTE Documentation of Mechanical Device: Intermittent pneumatic compression device Consult Discharge Plan - Plan Referrals: Aliyah Prado CNP [Primary Care Provider] - (walk in facilities.. no need for an appointment.)
--- NOTE | 2016-07-16 10:45 | Pulmonology Progress Note ---
Date of Encounter: 07/16/16 Time of Encounter: 07:30 Assessment and Plan (1) Diffuse pulmonary alveolar hemorrhage Current Visit: Yes Status: Acute I am still very concerned about this patient and initially this morning I kept her nothing by mouth for possible bronchoscopy in case her hemoptysis is worsen , subsequently she has clinically improved and she is requesting to eat. She asked me to call her brother, which I did and updated him about the plan. I discussed with primary team and nephrology and we ALL agreed to increase her systemic steroid to have pulse dose steroid until she has renal biopsy done tomorrow. With her extreme elevated CORINNE/ANCA, vasculitis this most likely the cause of her hemoptysis. (2) Hemoptysis Current Visit: Yes Status: Acute As discussed above under pulmonary hemorrhage (3) Atrial fibrillation Current Visit: Yes Status: Chronic Qualifiers: Atrial fibrillation type: chronic Qualified Code(s): I48.2 - Chronic atrial fibrillation Subjective Principal diagnosis: hemoptysis Interval history: Patient continued to have hemoptysis and still have clot was also some fresh blood Objective PUL Vital signs: Last Vital Signs Temp 97.6 F 07/16/16 07:45 Pulse 76 07/16/16 07:45 Resp 18 07/16/16 07:45 BP 161/80 07/16/16 07:45 Pulse Ox 96 07/16/16 07:45 General appearance: appears uncomfortable Eyes: nonicteric ENT: oropharynx moist Neck: supple, no lymphadenopathy Effort: mildly labored Auscultation: bilateral: rales Percussion: bilateral: not dull Cardiovascular: irregular rhythm Gastrointestinal: normoactive bowel sounds, non-distended Extremities: no cyanosis normal mental status, non-focal exam anxious Results - Laboratory Findings CBC and BMP: 07/16/16 04:20 07/16/16 05:05 PT/INR, D-dimer PT 16.9 Seconds (9.4-12.1) H 07/12/16 01:02 Abnormal lab findings: Abnormal lab results WBC 18.6 K/mcL (4.3-11.1) H 07/16/16 04:20 RBC 3.54 M/mcL (3.82-4.97) L 07/16/16 04:20 Hgb 9.8 g/dL (11.5-15.4) L D 07/16/16 04:20 Hct 29.6 % (35.3-44.9) L 07/16/16 04:20 MCH 27.7 pg (28.0-33.3) L 07/16/16 04:20 RDW 17.0 % (11.5-14.5) H 07/16/16 04:20 Neutrophils # 16.6 K/mcL (1.6-8.9) H 07/16/16 04:20 Nucleated RBCs/100 WBC 0.3 /100 WBC (0) H 07/16/16 04:20 Hypersegmented Neuts Present (Not Present) A 07/14/16 04:24 Poikilocytosis 1+ (Not Present) A 07/14/16 04:24 Anisocytosis 1+ (Not Present) A 07/14/16 04:24 Stomatocytes 1+ (Not Present) A 07/14/16 04:24 ESR 58 mm/hr (0-15) H 07/14/16 04:24 PT 16.9 Seconds (9.4-12.1) H 07/12/16 01:02 BUN 49 mg/dL (7-20) H 07/16/16 05:05 Creatinine 1.57 mg/dL (0.57-1.11) H 07/16/16 05:05 Est GFR ( Amer) 41 (> 60) L 07/16/16 05:05 Est GFR (Non-Af Amer) 34 (> 60) L 07/16/16 05:05 BUN/Creatinine Ratio 31 (6-26) H 07/16/16 05:05 Glucose 185 mg/dL (70-99) H 07/16/16 05:05 POC Glucose 182 (58-89) H 07/16/16 07:11 Hemoglobin A1c 7.6 % (-5.6) H 07/11/16 12:05 Calculated Osmolality 302 (280-300) H 07/16/16 05:05 Troponin I 0.18 ng/mL (0-0.03) H* 07/12/16 01:06 C-Reactive Protein 278 mg/L (Less than 5) H 07/12/16 01:02 TSH 0.072 mcIU/mL (0.350-4.840) L 07/15/16 02:58 PTH Intact 158.3 pg/ml (8.5-72.5) H 07/15/16 02:58 Urine Clarity Cloudy (Clear) A 07/13/16 21:00 Urine Protein 100 mg/dL (Neg-Trace) H 07/13/16 21:00 Urine Glucose (UA) >=1000 mg/dL (Normal) H 07/13/16 21:00 Urine Blood Moderate (Negative) H 07/13/16 21:00 Urine Microscopic WBC 3-5 per hpf (0-3) H 07/13/16 21:00 Ur Squamous Epith Cells Many per lpf (None-Few) H 07/13/16 21:00 Microalb/Creat Ratio 405 (0-30) H 07/13/16 21:00 Protein/Creatinin Ratio 1.12 mg/mg (0-0.20) H 07/13/16 21:00 Urine Total Protein 66 mg/dL (1-14) H 07/13/16 21:00 Fluid Appearance Cloudy (Clear) A 07/11/16 16:47 Vancomycin Trough 9.8 mcg/mL (10-20) L 07/13/16 10:43 CORINNE Screen DETECTED (None Detected) A 07/11/16 17:44 CORINNE Titer 1:1280 (<1:40) H 07/11/16 17:44 Myeloperoxidase Ab 44 AU/mL (0-19) H 07/11/16 17:44 ANCA IgG 1:5120 (<1:20) H 07/13/16 14:17 - Microbiology Findings Microbiology Findings: Microbiology, Last 48 Hours 07/13/16 12:30 Sputum Culture - Final Sputum - Clinical Findings Intake & Output: Intake & Output 07/15/16 07/16/16 07/16/16 23:59 07:59 15:59 Intake Total 947 / 947 150 / 150 Output Total 550 / 550 Balance 947 / 947 -400 / -400 Weight 88.405 kg - VTE Documentation of Mechanical Device: Intermittent pneumatic compression device Consult Discharge Plan - Plan Referrals: Aliyah Prado, LUMBER MARKER [Primary Care Provider] - (walk in facilities.. no need for an appointment.)
[2016-07-16] MEDS: Insulin LISPRO 300 UNITS/3 ML VIAL SQ SCH ×7 (10:56→22:17)
[2016-07-16] MEDS: Albuterol 2.5 MG/3 ML NEBULIZER IH PRN (11:13)
[2016-07-16] MEDS: methylPREDNISolone 125 MG/2 ML VIAL IVP SCH ×2 (12:31→18:14)
--- NOTE | 2016-07-16 12:51 | Internal Med Progress Note ---
Date of Encounter: 07/16/16 Time of Encounter: 10:30 - Assessment and plan (1) Diffuse pulmonary alveolar hemorrhage Current Visit: Yes Status: Acute Assessment and plan: Myeloperoxidase positive, the case was discussed with the both pulmonology and nephrology, we will increase the dose of steroids, she was on 60 mg of prednisone daily, will switch and increase to methylprednisolone 125 mg every 6 hours. Discussed with pulmonology, might need to repeat a bronchoscopy at this point. Anticipate kidney biopsy tomorrow if patient is stable, hemoglobin has improved. Today is 9.8 after 2 units of PRBC. Blood pressure is still not at goal, we will continue monitoring. Issue for kidney biopsy might be if patient is not able to be in prone position for the procedure due to shortness of breath , will continue monitoring the patient and continue with oxygen supplementation and systemic steroids. Continue with levofloxacin. Glucose improved, I anticipate that it may get worse due to increased dose of steroids, will increase dose of Levemir. We will continue monitoring fingerstick. Leukocytosis noted, 18,000, however trending down. We will continue monitoring. (2) Diabetes mellitus type 2, uncontrolled Current Visit: Yes Status: Chronic Assessment and plan: due to systemic steroids, today i increased insulin dose to 46 units bid. continue monitring. 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 On diltiazem for now. Qualifiers: Atrial fibrillation type: chronic Qualified Code(s): I48.2 - Chronic atrial fibrillation - Subjective Interval history: no fever, states that does not feel better, speaking full sentences. stil productive cpugh,still hemoptysis. - Constitutional Vitals: Temp Pulse Resp BP Pulse Ox 97.5 F L 85 16 152/92 93 07/16/16 11:29 07/16/16 11:29 07/16/16 11:29 07/16/16 11:29 07/16/16 11:29 General appearance: Present: mild distress, A&O X 3 - Head Head exam: Present: atraumatic, normocephalic - Eye Eye exam: Present: PERRL, conjuntiva pink, sclera anicteric Pupils: Present: PERRL - Neck Neck exam general surgery: Present: supple, trachea midline. Absent: lymphadenopathy - Respiratory Respiratory exam: Present: rhonchi. Absent: accessory muscle use, rales, wheezes - Cardiovascular Cardiovascular exam: Present: RRR, +S1, +S2. Absent: diastolic murmur, gallop, rubs, systolic murmur - GI/Abdominal GI/Abdominal exam: Present: normal bowel sounds, soft, no peritoneal signs. Absent: distended, tenderness - Extremities Exam Extremities exam: Present: warm, radial pulses palpable and symetrical. Absent : calf tenderness, cyanotic, pedal edema - Neurological Exam Neurological exam: Present: CN II-XII intact, oriented X3, no focal deficits. Absent: pronater drift, facial droop, speech deficit - Skin Skin exam: Present: dry, intact Internal Medicine: Result - Labs CBC & Chem 7: 07/16/16 04:20 07/16/16 05:05 Labs: Short CBC 07/16/16 Range/Units 04:20 WBC 18.6 H (4.3-11.1) K/mcL Hgb 9.8 L D (11.5-15.4) g/dL Hct 29.6 L (35.3-44.9) % Plt Count 268 (140-400) K/mcL Neutrophils # 16.6 H (1.6-8.9) K/mcL BMP 07/16/16 05:05 Sodium 137 Potassium 4.1 Chloride 104 Carbon Dioxide 24 BUN 49 H Creatinine 1.57 H Glucose 185 H Calcium 10.0 - ABG Interpretation ABG results: PT/INR, D-dimer PT 16.9 Seconds (9.4-12.1) H 07/12/16 01:02 - VTE Documentation of Mechanical Device: Intermittent pneumatic compression device Consult Discharge Plan - Plan Referrals: Aliyah Prado CNP [Primary Care Provider] - (walk in facilities.. no need for an appointment.)
[2016-07-16] MEDS ORDERED: Insulin DETEMIR 100 UNIT/ML X5UNITS SQ SCH (21:00)
[2016-07-16] MEDS: *HR* HYDROcodone/Acet 5/325 mg TABLET PO PRN (22:05)
[2016-07-17] MEDS: methylPREDNISolone 125 MG/2 ML VIAL IVP SCH ×4 (00:24→16:59)
[2016-07-17] MEDS: *HR* HYDROcodone/Acet 5/325 mg TABLET PO PRN ×2 (03:56→20:27)
[2016-07-17 04:17] LABS: Basophils % 0.1 %; Hematocrit 31.2 % (35.3-44.9); Hemoglobin 10.3 g/dL (11.5-15.4); Lymphocytes # 1.2 K/mcL (0.6-4.6); Lymphocytes % 7.5 %; Mean Corpuscular Hemoglobin 27.5 pg (28.0-33.3); Mean Corpuscular Volume 83.2 fL (83.0-100.0); Mean Platelet Volume 10.3 fL (9.4-12.4); Monocytes # 0.3 K/mcL (0.0-1.3); Neutrophils # 13.7 K/mcL (1.6-8.9); Nucleated Red Blood Cells 0.4 /100 WBC (0); Platelet Count 282 K/mcL (140-400); Red Blood Count 3.75 M/mcL (3.82-4.97); Segmented Neutrophils % 88.4 %
[2016-07-17 04:25] LABS: INR 1.1
[2016-07-17 04:26] LABS: Calcium 10.2 mg/dL (8.6-10.8); Potassium 3.9 mEq/L (3.5-4.5)
[2016-07-17 04:46] LABS: Anisocytosis 1+ (Not Present); Microcytosis Present (Not Present); Platelet Estimate Normal (Normal)
[2016-07-17 04:47] LABS: Polychromasia 1+ (Not Present)
[2016-07-17 07:22] LABS: Ribonucleic Protein Antibody 0 AU/mL (0-40); SSA 52 (Anti-RO) Antibody 2 AU/mL (0-40); SSA 60 (Anti-RO) Antibody 71 AU/mL (0-40)
[2016-07-17] MEDS: Insulin LISPRO 300 UNITS/3 ML VIAL SQ SCH ×7 (07:58→21:27)
[2016-07-17] MEDS: cloNIDine HCl 0.1 MG TABLET PO SCH ×3 (08:04→20:25)
[2016-07-17] MEDS: Levofloxacin 750 MG/150 ML 750 MG/150 ML BAG IVPB SCH (08:04)
[2016-07-17] MEDS: Isosorbide MONOnitrate (24 HR) 60 MG TAB.ER.24H PO SCH (08:04)
[2016-07-17] MEDS: Furosemide 40 MG TABLET PO SCH (08:04)
[2016-07-17] MEDS: Diltiazem CD (24hr) 180 MG CAPSULE PO SCH (08:04)
--- NOTE | 2016-07-17 08:19 | Pulmonology Progress Note ---
<Alex Garcias - Last Filed: 07/17/16 09:28> Date of Encounter: 07/17/16 Time of Encounter: 08:18 Assessment and Plan (1) Acute on chronic respiratory failure with hypoxia Current Visit: Yes Status: Acute Secondary to alveolar hemorrhaging. - Patient continues on Solu-Medrol IV. - Continued on rate control for atrial fibrillation - Requires 12 L nasal cannula oxygen to maintain oxygen saturations greater than 90% - Able to speak in full sentences with minimal interruption for breathing. - Continue antibiotic coverage for potential pneumonia with Levaquin, complete 5 days. (2) Diffuse pulmonary alveolar hemorrhage Current Visit: Yes Status: Acute Bronchoscopy performance 07/11 demonstrated pulmonary hemorrhage currently suspicious for vasculitis at this time. - RLL BAL with cloudy appearance, gram stain with few gram positive cooci and GNR - Legionella antigen negative, blood culture preliminary no growth, respirate culture normal upper respiratory tract juan m, acid-fast stain negative, nonsignificant Gram stain of right lower lobe lung collection. - C reactive protein 278, PT/INR 1.5, leukocytosis. Immunologic findings: CORINNE titer 1:1280 (> 1:160 is clinically significant) Highly suspicious for vasculitis given the patient has a elevated C-reactive protein at 278, CORINNE titer of 1:1280, ANCA-IgG (P-ANCA) 1:5120, MPO Ab 44, urinalysis had a microalbumin/creatinine ratio of 405 with moderate blood in the urine. Patient continues to have hemoptysis Differential diagnosis includes microscopic polyangitis, Goodpasture's, systemic lupus erythematous. Lower suspicion for infectious etiology given the patient's clinical picture. Study still pending: CCP, fungal cultures, PR3, glomerular basement membrane IgG, antineutrophil, hemosiderin urine 07/17/2016: Patient continues to have shortness of breath, hemoptysis requiring increased oxygen demand at 12 L nasal cannula to maintain oxygen saturation greater than 90%. Plan: - Continue to avoid anticoagulation with pulmonary hemorrhage - Continue IV Solu-Medrol 125 mg every 6 hours scheduled - Continue vasculitis workup. Patient undergo renal biopsy today. - HIV ordered, Quant gold still pending. - Wean oxygen as tolerated (3) Hemoptysis Current Visit: Yes Status: Acute Patient continues to have hemoptysis and required a total of 3 units of PRBC transfusion since admission. This is suspicious given patient's clinical picture and serum laboratory results thus far for underlining vasculitis. (4) Anemia Current Visit: No Status: Acute Patient presents with normocytic anemia secondary to pulmonary alveolar hemorrhage. - Continue to avoid anticoagulation - Received 3 unit PRBCs since admission - Monitor hemoglobins daily with plans to transfuse with hemoglobin less than 7.0 Qualifiers: Anemia type: other cause Other causes of anemia: chronic disease, kidney Qualified Code(s): N18.9 - Chronic kidney disease, unspecified; D63.1 - Anemia in chronic kidney disease (5) Atrial fibrillation Current Visit: Yes Status: Chronic Patient has known atrial fibrillation, currently rapid ventricular rate on diltiazem drip. Continue to hold anticoagulation with hemoptysis. - Continue rate control Qualifiers: Atrial fibrillation type: chronic Qualified Code(s): I48.2 - Chronic atrial fibrillation (6) Diabetes mellitus type 2, uncontrolled Current Visit: Yes Status: Chronic Patient is a known type II diabetic with a hemoglobin A1c of 7.6. Glucose elevated, improving with her current insulin regimen, likely secondary to IV steroids. Plan: - Continue medium dose sliding scale insulin - Continue Levemir 50 units subcutaneous twice a day - Continue pre-meal insulin Qualifiers: Diabetes mellitus complication status: with neurologic complications Diabetes mellitus complication detail: with unspecified neuropathy Diabetes mellitus usp insulin use: with terminal make up operator use Qualified Code(s): E11.40 - Type 2 diabetes mellitus with diabetic neuropathy, unspecified; E11.65 - Type 2 diabetes mellitus with hyperglycemia; Z79.4 - longterm (current) use of insulin (7) DVT prophylaxis Current Visit: No Status: Acute SCDs. Subjective Principal diagnosis: hemoptysis Interval history: Ms. Graham 60-year-old female has been seen in her patient bedside this morning. She is sitting up in bed in no acute distress alert oriented and interactive. She said that her breathing is improved today compared to the weekend. She had difficulty laying flat on her back on her abdomen saying that she feels smothered. Sitting up at an angle improves her respiratory function. She continues to have hemoptysis occasionally. She denies any nausea, vomiting, diarrhea or constipation. She remains in good spirits. Objective PUL Vital signs: Last Vital Signs Temp 97.5 F L 07/17/16 07:27 Pulse 83 07/17/16 07:27 Resp 17 07/17/16 07:27 BP 165/84 05/15/17 07:27 Pulse Ox 95 07/17/16 07:27 General appearance: no acute distress Eyes: nonicteric ENT: oropharynx moist Neck: supple, no lymphadenopathy, no JVD Effort: normal Auscultation: bilateral: rhonchi (Diffuse rhonchi and crackles bilaterally in all lung vazquez.) Cardiovascular: irregular rhythm Gastrointestinal: normoactive bowel sounds, soft, non-tender, non-distended Integumentary: normal Extremities: no cyanosis, no clubbing Musculoskeletal: no deformities normal mental status, non-focal exam, pupils equal and round mood appropriate, affect normal Results - Laboratory Findings CBC and BMP: 07/17/16 04:05 07/17/16 04:05 PT/INR, D-dimer PT 12.0 Seconds (9.4-12.1) 07/17/16 04:05 Abnormal lab findings: Abnormal lab results WBC 15.5 K/mcL (4.3-11.1) H 07/17/16 04:05 RBC 3.75 M/mcL (3.82-4.97) L 07/17/16 04:05 Hgb 10.3 g/dL (11.5-15.4) L 07/17/16 04:05 Hct 31.2 % (35.3-44.9) L 07/17/16 04:05 MCH 27.5 pg (28.0-33.3) L 07/17/16 04:05 RDW 17.0 % (11.5-14.5) H 07/17/16 04:05 Neutrophils # 13.7 K/mcL (1.6-8.9) H 07/17/16 04:05 Nucleated RBCs/100 WBC 0.4 /100 WBC (0) H 07/17/16 04:05 Hypersegmented Neuts Present (Not Present) A 07/14/16 04:24 Polychromasia 1+ (Not Present) A 07/17/16 04:05 Poikilocytosis 1+ (Not Present) A 07/14/16 04:24 Anisocytosis 1+ (Not Present) A 07/17/16 04:05 Microcytosis Present (Not Present) A 07/17/16 04:05 Stomatocytes 1+ (Not Present) A 07/14/16 04:24 ESR 58 mm/hr (0-15) H 07/14/16 04:24 BUN 50 mg/dL (7-20) H 07/17/16 04:05 Creatinine 1.56 mg/dL (0.57-1.11) H 07/17/16 04:05 Est GFR ( Amer) 41 (> 60) L 07/17/16 04:05 Est GFR (Non-Af Amer) 34 (> 60) L 07/17/16 04:05 BUN/Creatinine Ratio 32 (6-26) H 07/17/16 04:05 Glucose 226 mg/dL (70-99) H 07/17/16 04:05 POC Glucose 250 (58-89) H 07/17/16 07:35 Hemoglobin A1c 7.6 % (-5.6) H 07/11/16 12:05 Calculated Osmolality 306 (280-300) H 07/17/16 04:05 Troponin I 0.18 ng/mL (0-0.03) H* 07/12/16 01:06 C-Reactive Protein 278 mg/L (Less than 5) H 07/12/16 01:02 TSH 0.072 mcIU/mL (0.350-4.840) L 07/15/16 02:58 PTH Intact 158.3 pg/ml (8.5-72.5) H 07/15/16 02:58 Urine Clarity Cloudy (Clear) A 07/13/16 21:00 Urine Protein 100 mg/dL (Neg-Trace) H 07/13/16 21:00 Urine Glucose (UA) >=1000 mg/dL (Normal) H 07/13/16 21:00 Urine Blood Moderate (Negative) H 07/13/16 21:00 Urine Microscopic WBC 3-5 per hpf (0-3) H 07/13/16 21:00 Ur Squamous Epith Cells Many per lpf (None-Few) H 07/13/16 21:00 Microalb/Creat Ratio 405 (0-30) H 07/13/16 21:00 Protein/Creatinin Ratio 1.12 mg/mg (0-0.20) H 07/13/16 21:00 Urine Total Protein 66 mg/dL (1-14) H 07/13/16 21:00 Fluid Appearance Cloudy (Clear) A 07/11/16 16:47 Vancomycin Trough 9.8 mcg/mL (10-20) L 07/13/16 10:43 CORINNE Screen DETECTED (None Detected) A 07/11/16 17:44 CORINNE Titer 1:1280 (<1:40) H 07/11/16 17:44 Myeloperoxidase Ab 44 AU/mL (0-19) H 07/11/16 17:44 ANCA IgG 1:5120 (<1:20) H 07/13/16 14:17 SS-A Ro 60 kDa Ab 71 AU/mL (0-40) H 07/13/16 16:45 - Microbiology Findings Microbiology Findings: Microbiology, Last 48 Hours 07/11/16 09:07 Blood Culture - Final Peripheral Venipuncture No growth. 07/13/16 12:30 Sputum Culture - Final Sputum - Clinical Findings Intake & Output: Intake & Output 07/16/16 07/17/16 07/17/16 23:59 07:59 15:59 Intake Total 240 / 240 25 / 25 Output Total 500 / 500 600 / 600 Balance -260 / -260 -575 / -575 Weight 86.001 kg - VTE Documentation of Mechanical Device: Intermittent pneumatic compression device Consult Discharge Plan - Plan Referrals: Aliyah Prado, AUDIO VIDEO REPAIRER [Primary Care Provider] - (walk in facilities.. no need for an appointment.) <Dami Morton - Last Filed: 07/17/16 16:29> Date of Encounter: 07/17/16 Objective PUL Vital signs: Last Vital Signs Temp 97.4 F L 07/17/16 12:30 Pulse 86 07/17/16 14:10 Resp 86 07/17/16 14:39 BP 168/68 07/17/16 14:39 Pulse Ox 98 07/17/16 11:49 Results - Laboratory Findings CBC and BMP: 07/17/16 04:05 07/17/16 04:05 PT/INR, D-dimer PT 12.0 Seconds (9.4-12.1) 07/17/16 04:05 Abnormal lab findings: Abnormal lab results WBC 15.5 K/mcL (4.3-11.1) H 07/17/16 04:05 RBC 3.75 M/mcL (3.82-4.97) L 07/17/16 04:05 Hgb 10.3 g/dL (11.5-15.4) L 07/17/16 04:05 Hct 31.2 % (35.3-44.9) L 07/17/16 04:05 MCH 27.5 pg (28.0-33.3) L 07/17/16 04:05 RDW 17.0 % (11.5-14.5) H 07/17/16 04:05 Neutrophils # 13.7 K/mcL (1.6-8.9) H 07/17/16 04:05 Nucleated RBCs/100 WBC 0.4 /100 WBC (0) H 07/17/16 04:05 Hypersegmented Neuts Present (Not Present) A 07/14/16 04:24 Polychromasia 1+ (Not Present) A 07/17/16 04:05 Poikilocytosis 1+ (Not Present) A 07/14/16 04:24 Anisocytosis 1+ (Not Present) A 07/17/16 04:05 Microcytosis Present (Not Present) A 07/17/16 04:05 Stomatocytes 1+ (Not Present) A 07/14/16 04:24 ESR 58 mm/hr (0-15) H 07/14/16 04:24 BUN 50 mg/dL (7-20) H 07/17/16 04:05 Creatinine 1.56 mg/dL (0.57-1.11) H 07/17/16 04:05 Est GFR ( Amer) 41 (> 60) L 07/17/16 04:05 Est GFR (Non-Af Amer) 34 (> 60) L 07/17/16 04:05 BUN/Creatinine Ratio 32 (6-26) H 07/17/16 04:05 Glucose 226 mg/dL (70-99) H 07/17/16 04:05 POC Glucose 250 (58-89) H 07/17/16 07:35 Hemoglobin A1c 7.6 % (-5.6) H 07/11/16 12:05 Calculated Osmolality 306 (280-300) H 07/17/16 04:05 Troponin I 0.18 ng/mL (0-0.03) H* 07/12/16 01:06 C-Reactive Protein 278 mg/L (Less than 5) H 07/12/16 01:02 TSH 0.072 mcIU/mL (0.350-4.840) L 07/15/16 02:58 PTH Intact 158.3 pg/ml (8.5-72.5) H 07/15/16 02:58 Urine Clarity Cloudy (Clear) A 07/13/16 21:00 Urine Protein 100 mg/dL (Neg-Trace) H 07/13/16 21:00 Urine Glucose (UA) >=1000 mg/dL (Normal) H 07/13/16 21:00 Urine Blood Moderate (Negative) H 07/13/16 21:00 Urine Microscopic WBC 3-5 per hpf (0-3) H 07/13/16 21:00 Ur Squamous Epith Cells Many per lpf (None-Few) H 07/13/16 21:00 Microalb/Creat Ratio 405 (0-30) H 07/13/16 21:00 Protein/Creatinin Ratio 1.12 mg/mg (0-0.20) H 07/13/16 21:00 Urine Total Protein 66 mg/dL (1-14) H 07/13/16 21:00 Fluid Appearance Cloudy (Clear) A 07/11/16 16:47 Vancomycin Trough 9.8 mcg/mL (10-20) L 07/13/16 10:43 CORINNE Screen DETECTED (None Detected) A 07/11/16 17:44 CORINNE Titer 1:1280 (<1:40) H 07/11/16 17:44 Myeloperoxidase Ab 44 AU/mL (0-19) H 07/11/16 17:44 ANCA IgG 1:5120 (<1:20) H 07/13/16 14:17 SS-A Ro 60 kDa Ab 71 AU/mL (0-40) H 07/13/16 16:45 - Microbiology Findings Microbiology Findings: Microbiology, Last 48 Hours 07/11/16 09:07 Blood Culture - Final Peripheral Venipuncture No growth. 07/13/16 12:30 Sputum Culture - Final Sputum - Clinical Findings Intake & Output: Intake & Output 07/17/16 07/17/16 07/17/16 07:59 15:59 23:59 Intake Total 495 / 495 Output Total 600 / 600 800 / 800 Balance -575 / -575 -305 / -305 Weight 86.001 kg - Attending Attestation I examined this patient and my medical decision-making was reviewed with the SMOCKER/PA/Advanced Practice Nurse/Resident Physician. I agree with the documented findings, disposition and treatment plan as described except to the extent set forth below. 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) Still with high O2 requirements although quite controversial still with periodic episodes of hemoptysis but H&H is stable Patient went for renal biopsy today -Continue pulsed dose steroids (DM mngt per primary medicine service) -Will await renal biopsy (and Quatiferon results) but from pulmonary standpoint patient would likely benefit from starting additional immunosuppresive agent such as Cytoxan but will defer to Rheum -F/u Anti GBM (if + would need consideration of plasmapheresis) -cont to monitor H/H daily -no acute need to repeat Bronchoscopy at this time -clearly would cont to hold anticoagulation for primary CVA prevention but jose d advise contiinued use of mechanical DVT prophylaxis. Pulmonary will cont to follow.
[2016-07-17] MEDS: Insulin DETEMIR 100 UNIT/ML X5UNITS SQ SCH ×2 (08:53→21:27)
--- NOTE | 2016-07-17 09:10 | Nephrology Progress Note ---
Date of Encounter: 07/17/16 Time of Encounter: 09:07 - Assessment and Plan (1) Proteinuria Current Visit: Yes Status: Chronic Continue to monitor and improve bp, goal <160/90. CORINNE positive, ANCA positive, MPO positive. Highly suggestive of ANCA associated vasculitis. Continue with high dose steroids. IR, shira, and pathologist contacted this morning, pending Renal Biopsy. Continue with renal protect strategy, avoid nephrotoxic agents. Continue following labs. Qualifiers: Proteinuria type: isolated Isolated proteinuria type: with unspecified morphologic lesion Qualified Code(s): N06.9 - Isolated proteinuria with unspecified morphologic lesion (2) CORINNE positive Current Visit: Yes Status: Acute CORINNE titer 1:1280 (previously negative in 2015) Rheumatology on board. (3) P-ANCA and MPO antibodies positive Current Visit: Yes Status: Acute ANCA positive 1:5120 SS-A/Ri 60kDa Ab positive at 71, MPO Ab positive at 44. Rheumatology on board. (4) Chronic kidney disease, stage 3 Current Visit: Yes Status: Chronic Patient with known history of CKD stage III. Continued decreasing function since admission. BUN 50, Cr 1.56, eGFR 34 Continue to monitor I&O Gentle fluid hydration Continue monitoring labs Plan for renal biopsy, suspecting ANCA associated vasculitis. Continue per plan in assessments above. (5) Hematuria Current Visit: Yes Status: Acute Hematuria noted on this hospital visit UA, change from prior Urine studies in 2014 which were negative for blood. Renal biopsy ordered due to high suspicion of ANCA associated vasculitis. Continue per plan in assessment above. (6) Diabetes mellitus type 2, uncontrolled Current Visit: Yes Status: Chronic Known history of type II diabetes uncontrolled on termite control representative insulin. Glucose 226 Continue monitoring. Continue per Hospitalist plan. Qualifiers: Diabetes mellitus complication status: with neurologic complications Diabetes mellitus complication detail: with unspecified neuropathy Diabetes mellitus termite control representative insulin use: with termite control representative use Qualified Code(s): E11.40 - Type 2 diabetes mellitus with diabetic neuropathy, unspecified; E11.65 - Type 2 diabetes mellitus with hyperglycemia; Z79.4 - terminologist (current) use of insulin (7) Hypertension Current Visit: Yes Status: Chronic Bp 159-180/82-84, rate 83-96 irregular Continue to monitor bp Goal bp for renal biopsy <160/90. Continue with clonidine. Qualifiers: Hypertension type: essential hypertension Qualified Code(s): I10 - Essential (primary) hypertension (8) Diffuse pulmonary alveolar hemorrhage Current Visit: Yes Status: Acute (9) Anemia Current Visit: Yes Status: Acute Patient with known history of anemia. Normocytic anemia upon review of labs. Hb 9.2 on arrival to [facility]. Hb at 10.3 Continue to monitor labs Qualifiers: Anemia type: unspecified type Qualified Code(s): D64.9 - Anemia, unspecified (10) Hypothyroid Current Visit: Yes Status: Chronic History of hypothyroidism s/p thyroidectomy. TSH low at 0.072 PTH high 158.3 Qualifiers: Hypothyroidism type: acquired Qualified Code(s): E03.9 - Hypothyroidism, unspecified Subjective Principal diagnosis: hemoptysis Interval history: Patient reports doing well overnight. Continues to reports significant dyspnea , unchanged from yesterday. Continues to reports coughing up occasional blood, but reports more chest congestion than sputum production. Patient denies fevers , chills, sweats, changes in vision or hearing, nausea, vomiting, headaches, lightheadedness, chest pain, abdominal pain, changes in bowels or bladder, dysuria, hematuria, weakness, or loss of sensation. Patient to undergo Renal Biopsy this morning. Bp bordering recommended level. Hb 10.3 this morning. IR, research and development director, and pathhologist contacted this morning. Objective - Vital Signs Vital signs: Vital Signs Temp Pulse Resp BP Pulse Ox 07/17/16 07:27 97.5 F L 83 17 165/84 95 07/17/16 04:44 98.3 F 96 18 180/88 92 07/17/16 00:15 98.0 F 86 18 159/82 100 07/17/16 00:02 18 100 07/16/16 18:36 98.2 F 85 18 162/69 95 07/16/16 15:57 97.6 F 88 18 167/79 91 07/16/16 11:29 97.5 F L 85 16 152/92 93 07/16/16 11:13 18 94 Intake and Output 07/16/16 07/17/16 07/17/16 23:59 07:59 15:59 Intake Total 240 / 240 25 / 25 25 / 25 Output Total 500 / 500 600 / 600 0 / 0 Balance -260 / -260 -575 / -575 25 / 25 Intake: Oral 240 / 240 25 / 25 25 / 25 Output: Urine 500 / 500 600 / 600 0 / 0 Other: Meal Dinner Percent of Meal Consumed 90% # Voids 1 Weight 86.001 kg Blood Glucose* 306 250 Patient Weight 07/17/16 23:59 Weight 86.001 kg - Lab 07/17/16 04:05 07/17/16 04:05 Most recent lab results Calcium 10.2 mg/dL (8.6-10.8) 07/17/16 04:05 Magnesium 2.3 mg/dL (1.6-2.6) 07/13/16 04:11 Urine Creatinine 59 mg/dL 07/13/16 21:00 Urine Total Protein 66 mg/dL (1-14) H 07/13/16 21:00 - VTE Documentation of Mechanical Device: Intermittent pneumatic compression device Consult Discharge Plan - Plan Referrals: Aliyah Prado, SOCIAL SCIENCES INSTRUCTOR [Primary Care Provider] - (walk in facilities.. no need for an appointment.)
--- NOTE | 2016-07-17 09:46 | Rheumatology Progress Note ---
<Jluis Sanders - Last Filed: 07/17/16 14:45> Date of Encounter: 07/17/16 Time of Encounter: 09:15 Rheumatology Assess and Plan (1) Diffuse pulmonary alveolar hemorrhage Current Visit: Yes Status: Acute Patient required significantly more function over the weekend, up to 15 L supplemental oxygen, currently 11 L. Because of her worsening pulmonary function, she was started on significantly higher doses of Solu-Medrol (125 mg every 6 hours). Patient renal function is stable, but has continued to have worsened renal function from baseline and is showing significant proteinuria. Nephrology is following. Patient found to have p-ANCA and MPO antibodies, suggesting microscopic polyangiitis. Eosinophilic granulomatosis of polyangiitis (Churg-Ted) is possible but unlikely. Results of anti-GBM are pending Patient scheduled for Renal biopsy today Patient on 125 mg Q6hr Methylprednisolone currently recommend continuing patient on 60 mg PO prednisone after pulse of solu- medrol If anti-GBM antibodies are positive patient will likely require plasmapharesis Will consider starting Rituximab tomorrow, pending biopsy results (2) P-ANCA and MPO antibodies positive Current Visit: Yes Status: Acute Elevation in patient in p-ANCA and MPO antibodies are suggestive of microscopic polyangitis. C-ANCA with PR3 antibodies would be more suggestive of gramulomatosis with polyangitis. And it is unlikely to be eosinophilic granulomatosis with polyangitis with lack of peripheral eospinophils seen and lack of preceding suggestive symptoms. Plan as above (3) Renal insufficiency Current Visit: Yes Status: Acute Patient's serum creatinine has remained stable. Patient appeared to have significant proteinuria as seen on UA and protein/creatinine ratio. She does have history of atrial fibrillation and uncontrolled diabetes mellitus, but patient is p-ANCA positive with anti-MPO antibodies present suggesting vasculitis of her cause of renal insufficiency. Plan for renal biopsy this morning to help evaluate, and differentiate, potential vasculitis Results from anti-GBM pending Further plan as above Nephrology is following and appreciate recommendations for continued management/ care Continue to monitor renal function with daily chemistry Avoid nephrotoxic agents if possible (4) Proteinuria Current Visit: Yes Status: Chronic As above Qualifiers: Proteinuria type: isolated Isolated proteinuria type: with unspecified morphologic lesion Qualified Code(s): N06.9 - Isolated proteinuria with unspecified morphologic lesion (5) Diabetes mellitus type 2, uncontrolled Current Visit: Yes Status: Chronic Patient blood sugars will continue to require close monitoring given her continued need of glucocorticoids. Qualifiers: Diabetes mellitus complication status: with neurologic complications Diabetes mellitus complication detail: with unspecified neuropathy Diabetes mellitus senior care insulin use: with senior care use Qualified Code(s): E11.40 - Type 2 diabetes mellitus with diabetic neuropathy, unspecified; E11.65 - Type 2 diabetes mellitus with hyperglycemia; Z79.4 - termite technician (current) use of insulin - Subjective Interval history: Patient appears comfortable, with no significant concerns/complaints this morning. She feels as if she is breathing fine, though does report having an increased need of oxygen. She does no report any cough, except for when she takes a deep breath. She denies ever having any upper respiratory problems or pain and denies ever having renal symptoms or hemoptysis. She continues to deny pain with breathing, fever/chills, or new rashes. Exam Vital Signs, Last 4 Hours Temp Pulse Resp BP Pulse Ox 07/17/16 07:27 97.5 F L 83 17 165/84 95 Exam: General: Cooperative, pleasant, no acute distress, alert and oriented 3, answers questions appropriately, on 11 L supplemental oxygen HEENT: Normocephalic, atraumatic, neck supple, trachea midline, Conjunctiva pink , sclera anicteric, EOMI, oral mucosa moist, no orophargeal erythema or exudates appreciated, no sinus tenderness Respiratory: No accessory muscle usage, slight Rales auscultated R>L, mild rhonchorous noises present Cardiovascular: Regular rate and rhythm, S1 and S2 present, no murmurs/rubs/ gallops/clicks appreciated GI/abdominal: Nondistended, nontender, soft, normal bowel sounds, no peritoneal signs Extremities: No calf tenderness, noncyanotic, 1+ pedal edema bilaterally, mild pretibial edema bilaterally, warm, lower extremity pulses palpable and symmetrical Neurological: Alert and oriented 3, no facial droop, no focal deficits Skin: Dry, intact, normal color Objective Data 07/17/16 04:05 07/17/16 04:05 Immunology Rheumatoid Factor < 15 IU/mL (0-29) 07/11/16 17:44 Cycl Citrul Peptide IgG 12 Units (0-19) 07/11/16 17:44 CORINNE Screen DETECTED (None Detected) A 05/09/17 17:44 CORINNE Titer 1:1280 (<1:40) H 07/11/16 17:44 Myeloperoxidase Ab 44 AU/mL (0-19) H 07/11/16 17:44 ANCA IgG 1:5120 (<1:20) H 07/13/16 14:17 SS-A/Ro 52 kDa Ab 2 AU/mL (0-40) 07/13/16 16:45 SS-A Ro 60 kDa Ab 71 AU/mL (0-40) H 07/13/16 16:45 SS-B/La Antibody 0 AU/mL (0-40) 07/13/16 16:45 Sm (Mcdowell) IgG Ab, Quant 0 AU/mL (0-40) 07/13/16 16:45 Scl-70 IgG Ab 0 AU/mL (0-40) 07/11/16 17:44 Anti-U1-FIXED WING [employer]W CHIEF IgG, Quant 0 AU/mL (0-40) 07/13/16 16:45 Serine Protease 3 Ab 5 AU/mL (0-19) 07/11/16 17:44 Complement C3 138 mg/dL (88-201) 07/11/16 17:44 Complement C4 22 mg/dL (10-40) 07/11/16 17:44 - VTE Documentation of Mechanical Device: Intermittent pneumatic compression device Consult Discharge Plan - Plan Referrals: Aliyah Prado, SUPERCALENDER OPERATOR [Primary Care Provider] - (walk in facilities.. no need for an appointment.) <Amrit Cai - Last Filed: 07/17/16 17:01> Date of Encounter: 07/17/16 Rheumatology Assess and Plan (1) Diffuse pulmonary alveolar hemorrhage Current Visit: Yes Status: Acute (2) Renal insufficiency Current Visit: Yes Status: Acute (3) CORINNE positive Current Visit: Yes Status: Acute (4) Proteinuria Current Visit: Yes Status: Chronic Qualifiers: Proteinuria type: isolated Isolated proteinuria type: with unspecified morphologic lesion Qualified Code(s): N06.9 - Isolated proteinuria with unspecified morphologic lesion (5) Diabetes mellitus type 2, uncontrolled Current Visit: Yes Status: Chronic Qualifiers: Diabetes mellitus complication status: with neurologic complications Diabetes mellitus complication detail: with unspecified neuropathy Diabetes mellitus senior care insulin use: with rat exterminator use Qualified Code(s): E11.40 - Type 2 diabetes mellitus with diabetic neuropathy, unspecified; E11.65 - Type 2 diabetes mellitus with hyperglycemia; Z79.4 - termite technician (current) use of insulin Exam Vital Signs, Last 4 Hours Temp Pulse Resp BP Pulse Ox 07/17/16 16:24 97.2 F L 94 18 146/93 90 07/17/16 14:39 86 168/68 07/17/16 14:10 86 150/78 07/17/16 13:39 86 153/75 07/17/16 13:09 97 171/98 Objective Data 07/17/16 04:05 07/17/16 04:05 Immunology Rheumatoid Factor < 15 IU/mL (0-29) 07/11/16 17:44 Cycl Citrul Peptide IgG 12 Units (0-19) 07/11/16 17:44 CORINNE Screen DETECTED (None Detected) A 07/11/16 17:44 CORINNE Titer 1:1280 (<1:40) H 07/11/16 17:44 Myeloperoxidase Ab 44 AU/mL (0-19) H 07/11/16 17:44 ANCA IgG 1:5120 (<1:20) H 07/13/16 14:17 SS-A/Ro 52 kDa Ab 2 AU/mL (0-40) 07/13/16 16:45 SS-A Ro 60 kDa Ab 71 AU/mL (0-40) H 07/13/16 16:45 SS-B/La Antibody 0 AU/mL (0-40) 07/13/16 16:45 Sm (Mcdowell) IgG Ab, Quant 0 AU/mL (0-40) 07/13/16 16:45 Scl-70 IgG Ab 0 AU/mL (0-40) 07/11/16 17:44 Anti-U1-FIXED [employer]ING [employer]W [employer]IEF IgG, Quant 0 AU/mL (0-40) 07/13/16 16:45 Serine Protease 3 Ab 5 AU/mL (0-19) 07/11/16 17:44 Complement C3 138 mg/dL (88-201) 07/11/16 17:44 Complement C4 22 mg/dL (10-40) 07/11/16 17:44 All other labs normal. - Attending Attestation I have seen and examined this patient independently. I agree with the following note of the resident, Jluis Sanders, DO with the following exceptions. - 60 yo [place] with PMH of DM, CAD, hypothyroidism present to the hospital with hemoptysis, SOB, atrial fibrillation. - CT with ground glass opacities, nodules. 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 Renal biopsy completed today. She is being pulsed with IV solumedrol 500 mg every 6 hours - After day 3 of pulse, switch to Prednisone 60 mg - Once renal results reviewed, I think this patient would be a candidate for Rituximab induction therapy with continued prednisone. I would hope to give the first dose of RTX while she is an inpatient. - I discussed the plan today with nephrology, the patient and her son. - Will continue to follow closely
[2016-07-17] MEDS ORDERED: *HR* FentaNYL (PF) 100 MCG/2 ML VIAL IVP PRN (11:10)
[2016-07-17] MEDS ORDERED: *HR* Midazolam HCl 2 MG/2 ML VIAL IVP PRN (11:10)
[2016-07-17] MEDS ORDERED: 0.9 % Sodium Chloride 500 ML ONE (11:21)
--- NOTE | 2016-07-17 11:56 | IR Procedure Note ---
Date of procedure: 07/17/16 Consent Obtained: Written consent Timeout: Correct patient and procedure verified, Correct site verified, Time out performed, Skin prep completed Local anesthetic: Lidocaine 1% Indications: Glomerulonephritis vs vasculitis Procedure Performed: CT renal biopsy Site/Technique: Right kidney done Results/Findings: Minimal perinephric bleeding. Surgiflo used. Estimated blood loss (cc): 3 Complications: None; Tolerated procedure well Post Procedure Treatment Plan: Monitoring in pts room
--- NOTE | 2016-07-17 14:55 | Internal Med Progress Note ---
Date of Encounter: 07/17/16 Time of Encounter: 11:00 - Assessment and plan (1) Diffuse pulmonary alveolar hemorrhage Current Visit: Yes Status: Acute Assessment and plan: Myeloperoxidase positive, methylprednisolone 125 mg every 6 hours pulse, will switch to prednisone 60 daily ater pulse. Today she had a kidney bipsy, rheumatology and nephro involved to determine additional therapy for her vasculitis. I anticipate that glucose may get worse due to increased dose of steroids, will increase dose of Levemir to 50 bid. We will continue monitoring fingerstick. Leukocytosis trending down. We will continue monitoring. (2) Diabetes mellitus type 2, uncontrolled Current Visit: Yes Status: Chronic Assessment and plan: due to systemic steroids, today i increased insulin dose to 50 units bid. continue monitring. Qualifiers: Qualified Code(s): E11.40 - Type 2 diabetes mellitus with diabetic neuropathy , unspecified; E11.65 - Type 2 diabetes mellitus with hyperglycemia; Z79.4 - longterm (current) use of insulin (3) Rheumatoid arthritis Current Visit: Yes Status: Chronic Qualifiers: Qualified Code(s): M06.9 - Rheumatoid arthritis, unspecified (4) DVT prophylaxis Current Visit: No Status: Acute (5) Acute on chronic respiratory failure with hypoxia Current Visit: Yes Status: Acute (6) Hemoptysis Current Visit: Yes Status: Acute (7) Atrial fibrillation Current Visit: Yes Status: Chronic Assessment and plan: on cardizem and betablockers, ventricular rate currently controlled. Qualifiers: Qualified Code(s): I48.2 - Chronic atrial fibrillation - Subjective Interval history: no fever, states that feels better, however on high flow oxygen supplementation , speaking full sentences. still hemoptysis. s/p kidney biopsy - Constitutional Vitals: Temp Pulse Resp BP Pulse Ox 97.4 F L 85 16 139/80 98 07/17/16 12:30 07/17/16 12:30 07/17/16 12:30 07/17/16 12:30 07/17/16 11:49 General appearance: Present: mild distress, A&O X 3 - Head Head exam: Present: atraumatic, normocephalic - Eye Eye exam: Present: PERRL, conjuntiva pink, sclera anicteric Pupils: Present: PERRL - Neck Neck exam general surgery: Present: supple, trachea midline. Absent: lymphadenopathy - Respiratory Respiratory exam: Present: rhonchi. Absent: accessory muscle use, rales, wheezes - Cardiovascular Cardiovascular exam: Present: RRR, +S1, +S2. Absent: diastolic murmur, gallop, rubs, systolic murmur - GI/Abdominal GI/Abdominal exam: Present: normal bowel sounds, soft, no peritoneal signs. Absent: distended, tenderness - Extremities Exam Extremities exam: Present: warm, radial pulses palpable and symetrical. Absent : calf tenderness, cyanotic, pedal edema - Neurological Exam Neurological exam: Present: CN II-XII intact, oriented X3, no focal deficits. Absent: pronater drift, facial droop, speech deficit - Skin Skin exam: Present: dry, intact Additional comments: tattoo that occupies almost her entire back Internal Medicine: Result - Labs CBC & Chem 7: 07/17/16 04:05 07/17/16 04:05 Labs: Short CBC 07/17/16 Range/Units 04:05 WBC 15.5 H (4.3-11.1) K/mcL Hgb 10.3 L (11.5-15.4) g/dL Hct 31.2 L (35.3-44.9) % Plt Count 282 (140-400) K/mcL Neutrophils # 13.7 H (1.6-8.9) K/mcL BMP 07/17/16 04:05 Sodium 138 Potassium 3.9 Chloride 100 Carbon Dioxide 25 BUN 50 H Creatinine 1.56 H Glucose 226 H Calcium 10.2 - ABG Interpretation ABG results: PT/INR, D-dimer PT 12.0 Seconds (9.4-12.1) 07/17/16 04:05 - Impressions Impressions Renal Biopsy CT 07/17/16 00:00 IMPRESSION: Successful CT guided core biopsy of the right kidney. D/ / Jakob Kurtz MD / Jakob Kurtz MD Interpreting Provider: Jakob Kurtz MD - VTE Documentation of Mechanical Device: Intermittent pneumatic compression device Consult Discharge Plan - Plan Referrals: Aliyah Prado, TOOL TECHNICIAN [Primary Care Provider] - (walk in facilities.. no need for an appointment.)
[2016-07-18] MEDS: methylPREDNISolone 125 MG/2 ML VIAL IVP SCH ×4 (00:28→17:11)
[2016-07-18 05:24] LABS: Basophils % 0.1 %; Hematocrit 29.3 % (35.3-44.9); Hemoglobin 9.5 g/dL (11.5-15.4); Immature Granulocytes % 1.6 % (0-4); Lymphocytes # 1.1 K/mcL (0.6-4.6); Lymphocytes % 6.9 %; Mean Corpuscular HGB Conc 32.4 g/dL (31.6-35.5); Mean Corpuscular Hemoglobin 26.8 pg (28.0-33.3); Mean Corpuscular Volume 82.8 fL (83.0-100.0); Mean Platelet Volume 9.5 fL (9.4-12.4); Monocytes # 0.5 K/mcL (0.0-1.3); Nucleated Red Blood Cells 0.2 /100 WBC (0); Platelet Count 271 K/mcL (140-400); Red Blood Count 3.54 M/mcL (3.82-4.97); Red Cell Distribution Width 16.6 % (11.5-14.5); Segmented Neutrophils % 88.4 %
[2016-07-18 05:38] LABS: Calcium 9.5 mg/dL (8.6-10.8); Potassium 3.5 mEq/L (3.5-4.5)
--- NOTE | 2016-07-18 07:03 | Pulmonology Progress Note ---
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 Agree with current management including pulse dose steroids 3 days with addition of immunosuppressive agent rheumatology is favoring Rituxan which is a reasonable option We will follow up QuantiFERON testing for latent TB; and results of tissue biopsy of kidney I have a very low suspicion that she also has infectious pneumonia and would stop antimicrobials after 5 days if no change in clinical status Continue to wean FiO2 to keep oxygen saturations were 90-94% and can continue positive airway pressure as needed at night or for comfort during the day (2) P-ANCA and MPO antibodies positive Current Visit: Yes Status: Acute (3) Pneumonia Current Visit: Yes Status: Acute Qualifiers: Pneumonia type: due to unspecified organism Laterality: right Lung location: upper lobe of lung Qualified Code(s): J18.1 - Lobar pneumonia, unspecified organism (4) Acute on chronic respiratory failure with hypoxia Current Visit: Yes Status: Acute Subjective Principal diagnosis: hemoptysis Interval history: In general she says she is feeling better. She did have a couple episodes of coughing up small dried blood clots over the course of the evening. Oxygen requirements have conned down as well now she is requiring 5-6 L with oxygen saturation mid 90s. She denies any fevers chills or joint pains No untoward effects status post IR guided renal biopsy She did have difficulty wearing positive airway pressure mask overnight Objective PUL Vital signs: Last Vital Signs Temp 97.5 F L 07/18/16 04:08 Pulse 88 07/18/16 04:08 Resp 18 07/18/16 04:08 BP 172/79 07/18/16 04:08 Pulse Ox 97 07/18/16 04:08 General appearance: no acute distress ENT: oropharynx dry Effort: normal Auscultation: bilateral: rales (Mild primarily in lung bases) Cardiovascular: regular rate and rhythm Gastrointestinal: normoactive bowel sounds Extremities: no edema normal mental status Results - Laboratory Findings CBC and BMP: 07/18/16 05:03 07/18/16 05:03 PT/INR, D-dimer PT 12.0 Seconds (9.4-12.1) 07/17/16 04:05 Abnormal lab findings: Abnormal lab results WBC 15.9 K/mcL (4.3-11.1) H 07/18/16 05:03 RBC 3.54 M/mcL (3.82-4.97) L 07/18/16 05:03 Hgb 9.5 g/dL (11.5-15.4) L 07/18/16 05:03 Hct 29.3 % (35.3-44.9) L 07/18/16 05:03 MCV 82.8 fL (83.0-100.0) L 07/18/16 05:03 MCH 26.8 pg (28.0-33.3) L 07/18/16 05:03 RDW 16.6 % (11.5-14.5) H 07/18/16 05:03 Neutrophils # 14.0 K/mcL (1.6-8.9) H 07/18/16 05:03 Nucleated RBCs/100 WBC 0.2 /100 WBC (0) H 07/18/16 05:03 Hypersegmented Neuts Present (Not Present) A 07/14/16 04:24 Polychromasia 1+ (Not Present) A 07/17/16 04:05 Poikilocytosis 1+ (Not Present) A 07/14/16 04:24 Anisocytosis 1+ (Not Present) A 07/17/16 04:05 Microcytosis Present (Not Present) A 07/17/16 04:05 Stomatocytes 1+ (Not Present) A 07/14/16 04:24 ESR 58 mm/hr (0-15) H 07/14/16 04:24 BUN 53 mg/dL (7-20) H 07/18/16 05:03 Creatinine 1.37 mg/dL (0.57-1.11) H 07/18/16 05:03 Est GFR ( Amer) 48 (> 60) L 07/18/16 05:03 Est GFR (Non-Af Amer) 39 (> 60) L 07/18/16 05:03 BUN/Creatinine Ratio 39 (6-26) H 07/18/16 05:03 Glucose 205 mg/dL (70-99) H 07/18/16 05:03 POC Glucose 285 (58-89) H 07/18/16 00:35 Hemoglobin A1c 7.6 % (-5.6) H 07/11/16 12:05 Calculated Osmolality 302 (280-300) H 07/18/16 05:03 Troponin I 0.18 ng/mL (0-0.03) H* 07/12/16 01:06 C-Reactive Protein 278 mg/L (Less than 5) H 07/12/16 01:02 TSH 0.072 mcIU/mL (0.350-4.840) L 07/15/16 02:58 PTH Intact 158.3 pg/ml (8.5-72.5) H 07/15/16 02:58 Urine Clarity Cloudy (Clear) A 07/13/16 21:00 Urine Protein 100 mg/dL (Neg-Trace) H 07/13/16 21:00 Urine Glucose (UA) >=1000 mg/dL (Normal) H 07/13/16 21:00 Urine Blood Moderate (Negative) H 07/13/16 21:00 Urine Microscopic WBC 3-5 per hpf (0-3) H 07/13/16 21:00 Ur Squamous Epith Cells Many per lpf (None-Few) H 07/13/16 21:00 Microalb/Creat Ratio 405 (0-30) H 07/13/16 21:00 Protein/Creatinin Ratio 1.12 mg/mg (0-0.20) H 07/13/16 21:00 Urine Total Protein 66 mg/dL (1-14) H 07/13/16 21:00 Fluid Appearance Cloudy (Clear) A 07/11/16 16:47 Vancomycin Trough 9.8 mcg/mL (10-20) L 07/13/16 10:43 CORINNE Screen DETECTED (None Detected) A 07/11/16 17:44 CORINNE Titer 1:1280 (<1:40) H 07/11/16 17:44 Myeloperoxidase Ab 44 AU/mL (0-19) H 07/11/16 17:44 ANCA IgG 1:5120 (<1:20) H 07/13/16 14:17 SS-A Ro 60 kDa Ab 71 AU/mL (0-40) H 07/13/16 16:45 - Microbiology Findings Microbiology Findings: Microbiology, Last 48 Hours 05/09/17 09:07 Blood Culture - Final Peripheral Venipuncture No growth. - Clinical Findings Intake & Output: Intake & Output 07/17/16 07/17/16 07/18/16 15:59 23:59 07:59 Intake Total 495 / 495 1160 / 1160 600 / 600 Output Total 800 / 800 Balance -305 / -305 1160 / 1160 600 / 600 Weight 85.5 kg - VTE Documentation of Mechanical Device: Intermittent pneumatic compression device Consult Discharge Plan - Plan Referrals: Aliyah Prado, TENT ASSEMBLER [Primary Care Provider] - (walk in facilities.. no need for an appointment.)
[2016-07-18] MEDS: Insulin DETEMIR 100 UNIT/ML X5UNITS SQ SCH ×2 (08:27→21:45)
[2016-07-18] MEDS: cloNIDine HCl 0.1 MG TABLET PO SCH ×3 (08:27→21:45)
[2016-07-18] MEDS: Insulin LISPRO 300 UNITS/3 ML VIAL SQ SCH ×7 (08:28→21:46)
[2016-07-18] MEDS: Diltiazem CD (24hr) 180 MG CAPSULE PO SCH (08:28)
[2016-07-18] MEDS: Furosemide 40 MG TABLET PO SCH (08:28)
[2016-07-18] MEDS: Isosorbide MONOnitrate (24 HR) 60 MG TAB.ER.24H PO SCH (08:28)
--- NOTE | 2016-07-18 08:33 | Nephrology Progress Note ---
Date of Encounter: 07/18/16 Time of Encounter: 08:33 - Assessment and Plan (1) Proteinuria Current Visit: Yes Status: Chronic Continue to monitor and improve bp, goal <150/90. CORINNE positive, ANCA positive, MPO positive. GBM Ab pending. Highly suggestive of ANCA associated vasculitis. Preliminary read from Pathologist from renal biopsy. No confirmation of ANCA associated vasculitis, no crescents. Only chronic diabetic and hypertensive changes. Mentioned possible drug induced lupus from Hydralazine. Also mentioned the possibility of false positive ANCA and CORINNE from hydralazine. Will discontinue hydralazine. 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 Continue high dose steroids for a total of three days. Defer additional management to Rheumatology and Pulmonology as this appears not to be affecting directly the kidneys based on renal biopsy results. Continue with renal protective strategy, avoid nephrotoxic agents. Continue following labs. Qualifiers: Proteinuria type: isolated Isolated proteinuria type: with unspecified morphologic lesion Qualified Code(s): N06.9 - Isolated proteinuria with unspecified morphologic lesion (2) CORINNE positive Current Visit: Yes Status: Acute CORINNE titer 1:1280 (previously negative in 2015) Rheumatology on board. (3) P-ANCA and MPO antibodies positive Current Visit: Yes Status: Acute ANCA positive 1:5120 SS-A/Ri 60kDa Ab positive at 71, MPO Ab positive at 44. Rheumatology on board. Quantiferon Gold TB received, pending results. HIV negative. (4) Chronic kidney disease, stage 3 Current Visit: Yes Status: Chronic Patient with known history of CKD stage III. Continued decreasing function since admission. BUN 53, Cr 1.37, GFR 39. Continue to monitor I&O Gentle fluid hydration Continue monitoring labs Continue with renal protective strategy, avoid nephrotoxic agents. (5) Hematuria Current Visit: Yes Status: Acute Hematuria noted on this hospital visit UA, change from prior Urine studies in 2015 which were negative for blood. Continue per plan in assessment above. (6) Hypertension Current Visit: Yes Status: Chronic Bp 146-184/76-93, rate 79-94 irregular past 12 hours. Uncontrolled. Continue to monitor bp Goal bp <150/90 Continue with clonidine. Continue lasix. Continue cardizem CD 180mg qd. Medications reviewed, and pulse appears regularly elevated. Discontinue Hydralazine. Will uptitrate Metoprolol to 50mg bid. With caution for possible bradycardia. Continue to monitor. Recommend Cardiology to follow as concerns for possible bradycardia. Check magnesium and BMP tomorrow, replace potassium as needed. Qualifiers: Hypertension type: essential hypertension Qualified Code(s): I10 - Essential (primary) hypertension (7) Diabetes mellitus type 2, uncontrolled Current Visit: Yes Status: Chronic Known history of type II diabetes uncontrolled on alf insulin, receiving high dose steroids. Glucose 205 Continue monitoring. Continue per Hospitalist plan. Diet: Diabetic, Cardiac, Renal. Qualifiers: Diabetes mellitus complication status: with neurologic complications Diabetes mellitus complication detail: with unspecified neuropathy Diabetes mellitus alf insulin use: with termite control technician use Qualified Code(s): E11.40 - Type 2 diabetes mellitus with diabetic neuropathy, unspecified; E11.65 - Type 2 diabetes mellitus with hyperglycemia; Z79.4 - half-way (current) use of insulin (8) Diffuse pulmonary alveolar hemorrhage Current Visit: Yes Status: Acute Preliminary read of renal biopsy revealed no crescents or ANCA associate vasculitis findings. 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 Continue per plan of Hospitalist. (9) Anemia Current Visit: Yes Status: Acute Patient with known history of anemia. Normocytic anemia upon review of labs. Hb 9.3 on arrival to [place] ED. Hb at 9.5 this morning. Continue to monitor labs Qualifiers: Anemia type: unspecified type Qualified Code(s): D64.9 - Anemia, unspecified (10) Hypothyroid Current Visit: Yes Status: Chronic History of hypothyroidism s/p thyroidectomy. TSH low at 0.072 PTH high 158.3 Qualifiers: Hypothyroidism type: acquired Qualified Code(s): E03.9 - Hypothyroidism, unspecified Subjective Principal diagnosis: hemoptysis Interval history: Patient reports doing very well overnight. Continues to reports dyspnea, but improving. Reports coughing up more blood this morning which appears as dark clots, but hasn't been moving around and clearing her chest after the Renal biopsy yesterday. Reports orange/dark urine. Denies drainage or bleeding from biopsy site. Patient denies fevers, chills, sweats, changes in vision or hearing, headaches, lightheadedness, nausea, vomiting, chest pain, abdominal pain, back pain, changes in bowels or bladder, hematuria, dysuria, weakness, or loss of sensation. Patient underwent renal biopsy per IR yesterday, specimen sent, pending final results, preliminary read documented. Objective - Vital Signs Vital signs: Vital Signs Temp Pulse Resp BP Pulse Ox 07/18/16 07:18 97.6 F 91 16 184/90 93 07/18/16 04:08 97.5 F L 88 18 172/79 97 07/17/16 23:53 97.7 F 79 13 174/81 98 07/17/16 20:22 97.5 F L 94 18 165/76 90 07/17/16 17:39 92 07/17/16 16:24 97.2 F L 94 18 146/93 90 07/17/16 14:39 86 168/68 07/17/16 14:10 86 150/78 07/17/16 13:39 86 153/75 07/17/16 13:09 97 171/98 07/17/16 12:39 88 157/87 07/17/16 12:30 97.4 F L 85 16 139/80 07/17/16 12:11 88 139/80 07/17/16 11:49 83 16 149/77 98 07/17/16 11:44 80 14 172/85 99 07/17/16 11:39 79 15 166/84 100 07/17/16 11:34 82 16 157/80 100 Intake and Output 07/17/16 07/18/16 07/18/16 23:59 07:59 15:59 Intake Total 1160 / 1160 600 / 600 Output Total 325 / 325 Balance 1160 / 1160 275 / 275 Intake: Oral 1160 / 1160 600 / 600 Output: Urine 325 / 325 Other: Meal Dinner Percent of Meal Consumed 100% # Voids 1 1 Weight 85.5 kg Blood Glucose* 439 219 Patient Weight 07/18/16 23:59 Weight 85.5 kg - General Appearance General appearance: Present: well-developed, well-nourished, appears started age , obese EENT: Present: PERRL, mucous membranes moist Neck: Present: no JVD, no thyromegaly, no carotid bruit, supple Respiratory: Present: course breath sounds, rhonchi Cardiology: Present: no murmurs, no edema, regular rate, irregular rhythm, normal S1, normal S2 Gastrointestinal: Present: normoactive bowel sounds, no tenderness, no guarding Integumentary: Present: no rash, warm and dry Additional Comments: Biopsy site, right back, clean dry intact, no drainage or bleeding, nonerythematous, nontender Neurologic: Present: no focal deficit, alert and oriented x3, strength 5/5, CN 3 -12 intact Musculoskeletal: Present: no deformities, no erythema, no cyanosis, no clubbing Psychiatric: Present: mood/affect appropriate, cooperative - Lab 07/18/16 05:03 07/18/16 05:03 Most recent lab results Calcium 9.5 mg/dL (8.6-10.8) 07/18/16 05:03 Magnesium 2.3 mg/dL (1.6-2.6) 07/13/16 04:11 Urine Creatinine 59 mg/dL 07/13/16 21:00 Urine Total Protein 66 mg/dL (1-14) H 07/13/16 21:00 - VTE Documentation of Mechanical Device: Intermittent pneumatic compression device Consult Discharge Plan - Plan Referrals: Aliyah Prado, DUST SAMPLER [Primary Care Provider] - (walk in facilities.. no need for an appointment.)
--- NOTE | 2016-07-18 10:09 | Rheumatology Progress Note ---
<Jluis Sanders - Last Filed: 07/18/16 15:05> Date of Encounter: 07/18/16 Time of Encounter: 09:00 Rheumatology Assess and Plan (1) Diffuse pulmonary alveolar hemorrhage Current Visit: Yes Status: Acute Patient required significantly more function over the weekend, up to 15 L supplemental oxygen. Because of her worsening pulmonary function, she was started on significantly higher doses of Solu-Medrol (125 mg every 6 hours). Though her respiratory status has been improving since this weekend and she is now on 7 L supplemental oxygen and patient has reports no difficulties currently. Patient renal function is mildly improved, but stable. Overall, she has continued to have worsened renal function from baseline and is showing significant proteinuria. Nephrology is following. Preliminary renal biopsy does not show any active renal crescents, only just chronic histologic features of DM , HTN, obesity. Infectious workup so far has been negative: blood cultures x3 are negative, echo negative for vegetations, sputum cultures negative, HIV negative, TB negative, legionella/strep negative. Patient found to have p-ANCA and MPO antibodies, suggesting microscopic polyangiitis, that appears to be isolated to the lungs. Patient on 125 mg Q6hr Methylprednisolone currently recommend continuing patient on 60 mg PO prednisone tomorrow after pulse of solu-medrol tomorrow Results of anti-GBM are pending If anti-GBM antibodies are positive patient will likely require plasmapharesis Will consider starting Rituximab, but will discuss with patient and social work in order to try and work with insurance for potential coverage of medication (2) P-ANCA and MPO antibodies positive Current Visit: Yes Status: Acute Elevation in patient in p-ANCA and MPO antibodies are suggestive of microscopic polyangitis. C-ANCA with PR3 antibodies would be more suggestive of gramulomatosis with polyangitis. And it is unlikely to be eosinophilic granulomatosis with polyangitis with lack of peripheral eospinophils seen and lack of preceding suggestive symptoms. Plan as above (3) Renal insufficiency Current Visit: Yes Status: Acute Patient's serum creatinine has remained stable. Patient appeared to have significant proteinuria as seen on UA and protein/creatinine ratio. She does have history of atrial fibrillation and uncontrolled diabetes mellitus, but patient is p-ANCA positive with anti-MPO antibodies present suggesting vasculitis of her cause of renal insufficiency. No crescents seen on preliminary renal biopsy results. Results from anti-GBM pending Further plan as above Nephrology is following and appreciate recommendations for continued management/ care Continue to monitor renal function with daily chemistry Avoid nephrotoxic agents if possible (4) Proteinuria Current Visit: Yes Status: Chronic As above Qualifiers: Proteinuria type: isolated Isolated proteinuria type: with unspecified morphologic lesion Qualified Code(s): N06.9 - Isolated proteinuria with unspecified morphologic lesion (5) Diabetes mellitus type 2, uncontrolled Current Visit: Yes Status: Chronic Patient blood sugars will continue to require close monitoring given her continued need of glucocorticoids. Qualifiers: Diabetes mellitus complication status: with neurologic complications Diabetes mellitus complication detail: with unspecified neuropathy Diabetes mellitus halfway insulin use: with halfway use Qualified Code(s): E11.40 - Type 2 diabetes mellitus with diabetic neuropathy, unspecified; E11.65 - Type 2 diabetes mellitus with hyperglycemia; Z79.4 - watermaster (current) use of insulin - Subjective Interval history: Patient reports feeling well this morning, though she does state that she had some irritability last night. She states that she is breathing without difficulty, though is still requiring additional oxygen. She states that when lying still, her cough is generally improved, but reports that it comes back with excess movement. Review of Systems: General: feeling well, good appetite, no fever/chills, no new rashes HEENT: No sore throat or pain with eating, no epistaxis, reports dry mouth Resp: denies dyspnea, reports cough with deep breathing CV: denies CP, denies palpitations GI: denies N/V, denies abdominal pain MSK: denies weakness, denies muscle pain Neuro: No numbness/tingling Exam Vital Signs, Last 4 Hours Temp Pulse Resp BP Pulse Ox 07/18/16 07:18 97.6 F 91 16 184/90 93 Exam: General: Cooperative, pleasant, no acute distress, alert and oriented 3, answers questions appropriately, on 7 L supplemental oxygen HEENT: Normocephalic, atraumatic, oral mucosa slightly dry, no orophargeal erythema or exudates appreciated Respiratory: No accessory muscle usage, slight Rales auscultated R>L, mild rhonchorous noises present Cardiovascular: Regular rate and rhythm, S1 and S2 present, no murmurs/rubs/ gallops/clicks appreciated GI/abdominal: Nondistended, nontender, soft, normal bowel sounds, no peritoneal signs Extremities: No calf tenderness, noncyanotic, 1+ pedal edema bilaterally, mild pretibial edema bilaterally, warm, lower extremity pulses palpable and symmetrical Neurological: Alert and oriented 3, no facial droop, no focal deficits Skin: Dry, intact, normal color Objective Data 07/18/16 05:03 07/18/16 05:03 Immunology Rheumatoid Factor < 15 IU/mL (0-29) 07/11/16 17:44 Cycl Citrul Peptide IgG 12 Units (0-19) 07/11/16 17:44 CORINNE Screen DETECTED (None Detected) A 07/11/16 17:44 CORINNE Titer 1:1280 (<1:40) H 07/11/16 17:44 Myeloperoxidase Ab 44 AU/mL (0-19) H 07/11/16 17:44 ANCA IgG 1:5120 (<1:20) H 07/13/16 14:17 SS-A/Ro 52 kDa Ab 2 AU/mL (0-40) 07/13/16 16:45 SS-A Ro 60 kDa Ab 71 AU/mL (0-40) H 07/13/16 16:45 SS-B/La Antibody 0 AU/mL (0-40) 07/13/16 16:45 Sm (Mcdowell) IgG Ab, Quant 0 AU/mL (0-40) 07/13/16 16:45 Scl-70 IgG Ab 0 AU/mL (0-40) 07/11/16 17:44 Anti-U1-USER SUPPORT ANALYST IgG, Quant 0 AU/mL (0-40) 07/13/16 16:45 Serine Protease 3 Ab 5 AU/mL (0-19) 07/11/16 17:44 Complement C3 138 mg/dL (88-201) 07/11/16 17:44 Complement C4 22 mg/dL (10-40) 07/11/16 17:44 - VTE Documentation of Mechanical Device: Intermittent pneumatic compression device Consult Discharge Plan - Plan Referrals: Aliyah Prado, FIRE CAPTAIN [Primary Care Provider] - (walk in facilities.. no need for an appointment.) <Amrit Cai - Last Filed: 07/18/16 17:16> Date of Encounter: 07/18/16 Rheumatology Assess and Plan (1) Diffuse pulmonary alveolar hemorrhage Current Visit: Yes Status: Acute (2) Renal insufficiency Current Visit: Yes Status: Acute (3) CORINNE positive Current Visit: Yes Status: Acute (4) Proteinuria Current Visit: Yes Status: Chronic Qualifiers: Qualified Code(s): N06.9 - Isolated proteinuria with unspecified morphologic lesion (5) Diabetes mellitus type 2, uncontrolled Current Visit: Yes Status: Chronic Qualifiers: Qualified Code(s): E11.40 - Type 2 diabetes mellitus with diabetic neuropathy , unspecified; E11.65 - Type 2 diabetes mellitus with hyperglycemia; Z79.4 - FDC (current) use of insulin Exam Vital Signs, Last 4 Hours Temp Pulse Resp BP Pulse Ox 07/18/16 15:19 97.4 F L 80 18 150/76 95 Objective Data 07/18/16 05:03 07/18/16 05:03 Immunology Rheumatoid Factor < 15 IU/mL (0-29) 07/11/16 17:44 Cycl Citrul Peptide IgG 12 Units (0-19) 07/11/16 17:44 CORINNE Screen DETECTED (None Detected) A 07/11/16 17:44 CORINNE Titer 1:1280 (<1:40) H 07/11/16 17:44 Myeloperoxidase Ab 44 AU/mL (0-19) H 07/11/16 17:44 ANCA IgG 1:5120 (<1:20) H 07/13/16 14:17 SS-A/Ro 52 kDa Ab 2 AU/mL (0-40) 07/13/16 16:45 SS-A Ro 60 kDa Ab 71 AU/mL (0-40) H 07/13/16 16:45 SS-B/La Antibody 0 AU/mL (0-40) 07/13/16 16:45 Sm (Mcdowell) IgG Ab, Quant 0 AU/mL (0-40) 07/13/16 16:45 Scl-70 IgG Ab 0 AU/mL (0-40) 07/11/16 17:44 Anti-U1-USER SUPPORT ANALYST IgG, Quant 0 AU/mL (0-40) 07/13/16 16:45 Serine Protease 3 Ab 5 AU/mL (0-19) 07/11/16 17:44 Complement C3 138 mg/dL (88-201) 07/11/16 17:44 Complement C4 22 mg/dL (10-40) 07/11/16 17:44 All other labs normal. - Attending Attestation I examined this patient and my medical decision making was reviewed with the resident physician. I agree with the documented findings, disposition and treatment as described with these exceptions. This patient has a severe condition consistent of interstitial lung disease with pulmonary hemorrhage. While clinically improving after pulsed dose steroids, still requiring considerable oxygen. ANCA results positive clinically consistent with microscopic polyangiitis. CORINNE positivity may be due to underlying hydralazine; I am unclear the role of this medication in her current illness though it has been linked to drug induced SLE and ANCA vasculitis in reports and I would not recommend ever restarting this medication. This medication has been stopped. At this time, biopsy did not reveal any signs of active vasculitis affecting the kidney though given severity of illness, will need to proceed with empiric treatment. Infectious workup negative; noted that 3 sets of blood cultures negative, TTE reviewed, other infectious workup unrevealing as well. Completing pulsed steroids and will be switched to prednisone 60 mg tomorrow. If she remains stable, I believe Rituximab would be an ideal medication for this patient given side effect profile and I do not suspect this could be given as an inpatient. I will work to set this up as an outpatient at discharge. If she is not clinically stable, will need to proceed with initiation of cyclophosphamide. I have discussed this case with both nephrology and pulmonology who have also been in agreement. Will continue to follow closely.
[2016-07-18] MEDS ORDERED: NIFEdipine XL (24 HR) 60 MG TAB.ER.24 PO SCH (10:30)
--- NOTE | 2016-07-18 10:53 | Event Note ---
Date of Encounter: 07/18/16 Time of Encounter: 10:49 Renal Biopsy Update I received a preliminary read over the phone from [facility]: no active renal crescents were visualized. There was primary just chronic histologic features of DM, HTN, obesity. So from a nephrology perspective, the AAV has thus far no involved the kidneys. I suspect she may have a pulmonary limited AAV. Discussed with Pulmonology and will contact Rheumatology.
--- NOTE | 2016-07-18 17:08 | Internal Med Progress Note ---
Date of Encounter: 07/18/16 Time of Encounter: 10:06 - Assessment and plan (1) Diffuse pulmonary alveolar hemorrhage Current Visit: Yes Status: Acute Assessment and plan: Myeloperoxidase positive, methylprednisolone 125 mg every 6 hours pulse, will switch to prednisone 60 daily after 3 day pulse. Had a kidney bipsy yesterday, no evidence of renal involvement, rheumatology to determine additional therapy for her vasculitis. Continue with Levemir to 50 bid. We will continue monitoring fingerstick. Leukocytosis trending down. Antiboitcs as per pulmonology. (2) Diabetes mellitus type 2, uncontrolled Current Visit: Yes Status: Chronic Assessment and plan: due to systemic steroids, continue insulin 50 units bid. continue monitring. Qualifiers: Diabetes mellitus complication status: with neurologic complications Diabetes mellitus complication detail: with unspecified neuropathy Diabetes mellitus halfway insulin use: with halfway use Qualified Code(s): E11.40 - Type 2 diabetes mellitus with diabetic neuropathy, unspecified; E11.65 - Type 2 diabetes mellitus with hyperglycemia; Z79.4 - retirement (current) use of insulin (3) Rheumatoid arthritis Current Visit: Yes Status: Chronic Qualifiers: Rheumatoid arthritis location: unspecified site Rheumatoid factor presence : unspecified presence Qualified Code(s): M06.9 - Rheumatoid arthritis, unspecified (4) DVT prophylaxis Current Visit: No Status: Acute (5) Acute on chronic respiratory failure with hypoxia Current Visit: Yes Status: Acute (6) Hemoptysis Current Visit: Yes Status: Acute (7) Atrial fibrillation Current Visit: Yes Status: Chronic Assessment and plan: on cardizem and betablockers, ventricular rate currently controlled. Qualifiers: Atrial fibrillation type: chronic Qualified Code(s): I48.2 - Chronic atrial fibrillation - Subjective Interval history: no fever, states that feels better, still on oxygen supplementation but fio2 needs trending down, speaking full sentences. still hemoptysis. s/p kidney biopsy - Constitutional Vitals: Temp Pulse Resp BP Pulse Ox 97.4 F L 80 18 150/76 95 07/18/16 15:19 07/18/16 15:19 07/18/16 15:19 07/18/16 15:19 07/18/16 15:19 General appearance: Present: mild distress, A&O X 3 - Head Head exam: Present: atraumatic, normocephalic - Eye Eye exam: Present: PERRL, conjuntiva pink, sclera anicteric Pupils: Present: PERRL - Neck Neck exam general surgery: Present: supple, trachea midline. Absent: lymphadenopathy - Respiratory Respiratory exam: Present: decreased breath sounds, rhonchi. Absent: accessory muscle use, rales, wheezes - Cardiovascular Cardiovascular exam: Present: RRR, +S1, +S2. Absent: diastolic murmur, gallop, rubs, systolic murmur - GI/Abdominal GI/Abdominal exam: Present: normal bowel sounds, soft, no peritoneal signs. Absent: distended, tenderness - Extremities Exam Extremities exam: Present: warm, radial pulses palpable and symetrical. Absent : calf tenderness, cyanotic, pedal edema - Neurological Exam Neurological exam: Present: CN II-XII intact, oriented X3, no focal deficits. Absent: pronater drift, facial droop, speech deficit - Skin Skin exam: Present: dry, intact Internal Medicine: Result - Labs CBC & Chem 7: 07/18/16 05:03 07/18/16 05:03 Labs: Short CBC 07/18/16 Range/Units 05:03 WBC 15.9 H (4.3-11.1) K/mcL Hgb 9.5 L (11.5-15.4) g/dL Hct 29.3 L (35.3-44.9) % Plt Count 271 (140-400) K/mcL Neutrophils # 14.0 H (1.6-8.9) K/mcL BMP 07/18/16 05:03 Sodium 136 Potassium 3.5 Chloride 98 Carbon Dioxide 28 BUN 53 H Creatinine 1.37 H Glucose 205 H Calcium 9.5 - ABG Interpretation ABG results: PT/INR, D-dimer PT 12.0 Seconds (9.4-12.1) 07/17/16 04:05 - VTE Documentation of Mechanical Device: Intermittent pneumatic compression device Consult Discharge Plan - Plan Referrals: Aliyah Prado, CABLE MAKER [Primary Care Provider] - (walk in facilities.. no need for an appointment.)
[2016-07-19] MEDS: methylPREDNISolone 125 MG/2 ML VIAL IVP SCH ×2 (01:35→06:08)
[2016-07-19] MEDS: *HR* OxyCODONE/APAP 10/325 TABLET PO PRN (01:35)
[2016-07-19 06:02] LABS: Basophils % 0.1 %; Hematocrit 28.1 % (35.3-44.9); Hemoglobin 9.2 g/dL (11.5-15.4); Immature Granulocytes % 1.6 % (0-4); Lymphocytes # 0.9 K/mcL (0.6-4.6); Lymphocytes % 4.8 %; Mean Corpuscular HGB Conc 32.7 g/dL (31.6-35.5); Mean Corpuscular Hemoglobin 27.3 pg (28.0-33.3); Mean Corpuscular Volume 83.4 fL (83.0-100.0); Mean Platelet Volume 10.1 fL (9.4-12.4); Monocytes # 0.5 K/mcL (0.0-1.3); Monocytes % 2.8 %; Neutrophils # 17.1 K/mcL (1.6-8.9); Nucleated Red Blood Cells 0.1 /100 WBC (0); Platelet Count 294 K/mcL (140-400); Red Blood Count 3.37 M/mcL (3.82-4.97); Red Cell Distribution Width 16.8 % (11.5-14.5); Segmented Neutrophils % 90.7 %
[2016-07-19 06:19] LABS: Calcium 9.2 mg/dL (8.6-10.8); Potassium 2.7 mEq/L (3.5-4.5)
--- NOTE | 2016-07-19 07:02 | Pulmonology Progress Note ---
Date of Encounter: 07/19/16 Time of Encounter: 07:02 Assessment and Plan (1) Diffuse pulmonary alveolar hemorrhage Current Visit: Yes Status: Acute Patient presenting with Anca-positive vasculitis with diffuse alveolar hemorrhage per pathology report in speaking with electric welder helper appear there is no kidney involvement at least from Anka vasculitis standpoint I understand that the anti-GBM is outstanding at this point. 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 If she continues to make clinical improvement the question is which immunosuppressive agent in addition to steroids would be most reasonable based upon rheumatology' s assessment on availability tolerance etc. they would favor Rituxan which I think is a very reasonable approach for this however the patient would have to be discharged. My opinion is that she will be clinically stable to allow for discharge from the hospitalist start Rituxan. Over the last should her clinical course jacquard loom card changer the next 24-48 hrs. or not continue on positive trajectory cyclophosphamide would be a reasonable alternative that could be started in the hospital We will follow up QuantiFERON testing for latent TB I have a very low suspicion that she also has infectious pneumonia and would stop antimicrobials after 5 days if no change in clinical status Continue to wean FiO2 to keep oxygen saturations were 90-94% and can continue positive airway pressure as needed at night or for comfort during the day (2) P-ANCA and MPO antibodies positive Current Visit: Yes Status: Acute (3) Pneumonia Current Visit: Yes Status: Acute Qualifiers: Pneumonia type: due to unspecified organism Laterality: right Lung location: upper lobe of lung Qualified Code(s): J18.1 - Lobar pneumonia, unspecified organism (4) Acute on chronic respiratory failure with hypoxia Current Visit: Yes Status: Acute Subjective Principal diagnosis: hemoptysis Interval history: She has done well overnight she continues to have periodic episodes of small amount of hemoptysis does not appear to have had any overnighter into this morning. Her breathing is much more comfortable to me and has been on the previous days and this appears to be reflected in on 5-6 L high flow nasal cannula saturations are in the high 90s. An likely can be weaned down She does have some diffuse joint pain Objective PUL Vital signs: Last Vital Signs Temp 97.7 F 07/19/16 03:39 Pulse 72 07/19/16 03:39 Resp 16 07/19/16 03:39 BP 167/77 07/19/16 03:39 Pulse Ox 94 07/19/16 03:39 General appearance: no acute distress ENT: oropharynx moist Effort: normal Auscultation: bilateral: rales Cardiovascular: regular rate and rhythm Integumentary: normal non-focal exam Results - Laboratory Findings CBC and BMP: 07/19/16 04:41 07/19/16 04:41 PT/INR, D-dimer PT 12.0 Seconds (9.4-12.1) 07/17/16 04:05 Abnormal lab findings: Abnormal lab results WBC 18.9 K/mcL (4.3-11.1) H 07/19/16 04:41 RBC 3.37 M/mcL (3.82-4.97) L 07/19/16 04:41 Hgb 9.2 g/dL (11.5-15.4) L 07/19/16 04:41 Hct 28.1 % (35.3-44.9) L 07/19/16 04:41 MCH 27.3 pg (28.0-33.3) L 07/19/16 04:41 RDW 16.8 % (11.5-14.5) H 07/19/16 04:41 Neutrophils # 17.1 K/mcL (1.6-8.9) H 07/19/16 04:41 Nucleated RBCs/100 WBC 0.1 /100 WBC (0) H 07/19/16 04:41 Hypersegmented Neuts Present (Not Present) A 07/14/16 04:24 Polychromasia 1+ (Not Present) A 07/17/16 04:05 Poikilocytosis 1+ (Not Present) A 07/14/16 04:24 Anisocytosis 1+ (Not Present) A 07/17/16 04:05 Microcytosis Present (Not Present) A 07/17/16 04:05 Stomatocytes 1+ (Not Present) A 07/14/16 04:24 ESR 58 mm/hr (0-15) H 07/14/16 04:24 Potassium 2.7 mEq/L (3.5-4.5) L 07/19/16 04:41 BUN 53 mg/dL (7-20) H 07/19/16 04:41 Creatinine 1.29 mg/dL (0.57-1.11) H 07/19/16 04:41 Est GFR ( Amer) 51 (> 60) L 07/19/16 04:41 Est GFR (Non-Af Amer) 42 (> 60) L 07/19/16 04:41 BUN/Creatinine Ratio 41 (6-26) H 07/19/16 04:41 Glucose 243 mg/dL (70-99) H 07/19/16 04:41 POC Glucose 285 (58-89) H 07/18/16 00:35 Hemoglobin A1c 7.6 % (-5.6) H 07/11/16 12:05 Calculated Osmolality 310 (280-300) H 07/19/16 04:41 Troponin I 0.18 ng/mL (0-0.03) H* 07/12/16 01:06 C-Reactive Protein 278 mg/L (Less than 5) H 07/12/16 01:02 TSH 0.072 mcIU/mL (0.350-4.840) L 07/15/16 02:58 PTH Intact 158.3 pg/ml (8.5-72.5) H 07/15/16 02:58 Urine Clarity Cloudy (Clear) A 07/13/16 21:00 Urine Protein 100 mg/dL (Neg-Trace) H 07/13/16 21:00 Urine Glucose (UA) >=1000 mg/dL (Normal) H 07/13/16 21:00 Urine Blood Moderate (Negative) H 07/13/16 21:00 Urine Microscopic WBC 3-5 per hpf (0-3) H 07/13/16 21:00 Ur Squamous Epith Cells Many per lpf (None-Few) H 07/13/16 21:00 Microalb/Creat Ratio 405 (0-30) H 07/13/16 21:00 Protein/Creatinin Ratio 1.12 mg/mg (0-0.20) H 07/13/16 21:00 Urine Total Protein 66 mg/dL (1-14) H 07/13/16 21:00 Fluid Appearance Cloudy (Clear) A 07/11/16 16:47 Vancomycin Trough 9.8 mcg/mL (10-20) L 07/13/16 10:43 CORINNE Screen DETECTED (None Detected) A 07/11/16 17:44 CORINNE Titer 1:1280 (<1:40) H 07/11/16 17:44 Myeloperoxidase Ab 44 AU/mL (0-19) H 07/11/16 17:44 ANCA IgG 1:5120 (<1:20) H 07/13/16 14:17 SS-A Ro 60 kDa Ab 71 AU/mL (0-40) H 07/13/16 16:45 - Microbiology Findings Microbiology Findings: Microbiology, Last 48 Hours 07/11/16 09:07 Blood Culture - Final Peripheral Venipuncture No growth. - Clinical Findings Intake & Output: Intake & Output 07/18/16 07/18/16 07/19/16 15:59 23:59 07:59 Intake Total 1160 / 1160 920 / 920 Output Total 800 / 800 900 / 900 Balance 360 / 360 920 / 920 -900 / -900 Weight 85.6 kg - VTE Documentation of Mechanical Device: Intermittent pneumatic compression device Consult Discharge Plan - Plan Referrals: Aliyah Prado, GANG PUNCH OPERATOR [Primary Care Provider] - (walk in facilities.. no need for an appointment.)
[2016-07-19 08:02] LABS: GBM IgG Multiplex Bead Assay 0 AU/mL (0-19); Glomerular Basement Memb IgG NEGATIVE (Negative)
[2016-07-19] MEDS: cloNIDine HCl 0.1 MG TABLET PO SCH ×3 (08:05→22:11)
[2016-07-19] MEDS: Furosemide 40 MG TABLET PO SCH (08:05)
[2016-07-19] MEDS: Diltiazem CD (24hr) 180 MG CAPSULE PO SCH (08:06)
[2016-07-19] MEDS: Isosorbide MONOnitrate (24 HR) 60 MG TAB.ER.24H PO SCH (08:06)
[2016-07-19] MEDS: Insulin LISPRO 300 UNITS/3 ML VIAL SQ SCH ×7 (08:06→22:13)
[2016-07-19] MEDS: Levofloxacin 750 MG/150 ML 750 MG/150 ML BAG IVPB SCH (08:06)
--- NOTE | 2016-07-19 08:07 | Nephrology Progress Note ---
Date of Encounter: 07/19/16 Time of Encounter: 08:06 - Assessment and Plan (1) Proteinuria Current Visit: Yes Status: Chronic Continue to monitor and improve bp, goal <150/90. CORINNE positive, ANCA positive, MPO positive. GBM Ab pending. Highly suggestive of ANCA associated vasculitis. Preliminary read from Pathologist from renal biopsy. No confirmation of ANCA associated vasculitis, no crescents. Only chronic diabetic and hypertensive changes. Mentioned possible drug induced lupus from Hydralazine. Also mentioned the possibility of false positive ANCA and CORINNE from hydralazine. Discontinued hydralazine. 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 High dose steroids x3 days completed. Defer additional immunological management to Rheumatology and Pulmonology as this appears not to be affecting directly the kidneys based on renal biopsy results. Though, prednisone 40mg bid starting tomorrow already ordered. Continue with renal protective strategy, avoid nephrotoxic agents. Continue following labs. Qualifiers: Proteinuria type: isolated Isolated proteinuria type: with unspecified morphologic lesion Qualified Code(s): N06.9 - Isolated proteinuria with unspecified morphologic lesion (2) CORINNE positive Current Visit: Yes Status: Acute CORINNE titer 1:1280 (previously negative in 2015) Rheumatology on board. (3) P-ANCA and MPO antibodies positive Current Visit: Yes Status: Acute ANCA positive 1:5120 SS-A/Ri 60kDa Ab positive at 71, MPO Ab positive at 44. Rheumatology on board. Quantiferon Gold TB received, pending results. HIV negative. (4) Chronic kidney disease, stage 3 Current Visit: Yes Status: Chronic Patient with known history of CKD stage III. Function improving. BUN 53, Cr 1.29, GFR 42 Continue to monitor I&O Gentle fluid hydration Continue monitoring labs Continue with renal protective strategy, avoid nephrotoxic agents. (5) Hematuria Current Visit: Yes Status: Acute Hematuria noted on this hospital visit UA, change from prior Urine studies in 2015 which were negative for blood. Continue per plan in assessment above. (6) Hypertension Current Visit: Yes Status: Chronic Bp 165-168/71/78, rate 72-79, irregular. Uncontrolled, with additional insult of active vasculitis Continue to monitor bp Goal bp <150/90 Continue with clonidine 0.3 mg tid, start clonidine patch 0.3 mg tid. Plan to decrease to 0.2mg tid tomorrow and 0.1 mg tid the following day while awaiting patch to reach full efficacy. Continue Metoprolol 50mg bid. Caution advised due to possible bradycardia. Continue monitoring. Decreased lasix to 20mg bid from 40mg bid. Hypokalemic this morning and concern for contraction alkalosis. Continue monitoring labs. May consider potassium sparing diuretic such as spironolactone if hypokalemia continues to worsen. Discontinued hydralazine. Avoid ACEi and ARBs, may consider as outpatient once kidney function stabilizes. Qualifiers: Hypertension type: essential hypertension Qualified Code(s): I10 - Essential (primary) hypertension (7) Hypokalemia Current Visit: Yes Status: Acute Potassium at 2.7 this morning from 3.5 yesterday. May be secondary to potassium loss from lasix. Decreased lasix to 20mg qd. May consider potassium sparing diuretic such as spironolactone if continues to worsen. Potassium 40mEq bid x3 doses. Repeat potassium q6h x2, repeat bmp in the morning. 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 Glucose 243 Continue monitoring. Continue per Hospitalist plan. Diet: Diabetic, Cardiac, Renal. Qualifiers: Diabetes mellitus complication status: with neurologic complications Diabetes mellitus complication detail: with unspecified neuropathy Diabetes mellitus chcf insulin use: with chcf use Qualified Code(s): E11.40 - Type 2 diabetes mellitus with diabetic neuropathy, unspecified; E11.65 - Type 2 diabetes mellitus with hyperglycemia; Z79.4 - marine oil terminal superintendent (current) use of insulin (9) Diffuse pulmonary alveolar hemorrhage Current Visit: Yes Status: Acute Preliminary read of renal biopsy revealed no crescents or ANCA associate vasculitis findings. 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 Incentive spirometry ordered Continue per plan of Hospitalist. (10) Anemia Current Visit: Yes Status: Acute Patient with known history of anemia. Normocytic anemia upon review of labs. Hb 9.3 on arrival to [place] [facility]. Hb at 9.2 this morning. Continue to monitor labs Qualifiers: Anemia type: unspecified type Qualified Code(s): D64.9 - Anemia, unspecified (11) Hypothyroid Current Visit: Yes Status: Chronic History of hypothyroidism s/p thyroidectomy. TSH low at 0.072 PTH high 158.3 Qualifiers: Hypothyroidism type: acquired Qualified Code(s): E03.9 - Hypothyroidism, unspecified Subjective Principal diagnosis: hemoptysis Interval history: Patient reports doing well overnight. Continues to report mild dyspnea, has been on 7L high flow cannula overnight and refusing Bipap. Continues to cough up blood, but decreasing in amounts and reports feeling like her chest is congested and unable to take in a very deep breath as she is used to. Reports normal urine, no blood. Patient denies fevers, chills, sweats, changes in vision or hearing, headaches, lightheadedness, nausea, vomiting, chest pain, abdominal pain, back pain, changes in bowels or bladder, hematuria, dysuria, weakness, or loss of sensation. Potassium at 2.7 this morning. Bp between 165-168/71/78 Objective - Vital Signs Vital signs: Vital Signs Temp Pulse Resp BP Pulse Ox 07/19/16 07:59 98.0 F 78 16 165/71 97 07/19/16 03:39 97.7 F 72 16 167/77 94 07/18/16 23:43 97.4 F L 79 18 168/78 96 07/18/16 20:08 97.5 F L 87 17 173/54 95 07/18/16 15:19 97.4 F L 80 18 150/76 95 07/18/16 11:39 97.6 F 77 20 159/54 90 Intake and Output 07/18/16 07/19/16 07/19/16 23:59 07:59 15:59 Intake Total 920 / 920 Output Total 900 / 900 Balance 920 / 920 -900 / -900 Intake: Oral 920 / 920 Output: Urine 900 / 900 Other: # Voids 1 Weight 85.6 kg Blood Glucose* 354 229 Patient Weight 07/19/16 23:59 Weight 85.6 kg - General Appearance General appearance: Present: well-developed, well-nourished, appears started age , obese EENT: Present: PERRL, mucous membranes moist Neck: Present: no JVD, no carotid bruit, supple Respiratory: Present: course breath sounds Cardiology: Present: no murmurs, no rub, no edema, regular rate, irregular rhythm, normal S1, normal S2 Gastrointestinal: Present: normoactive bowel sounds, no tenderness, no guarding Integumentary: Present: no rash, warm and dry Additional Comments: Renal biopsy site clean dry intact, no drainage, no erythema Neurologic: Present: no focal deficit, alert and oriented x3, strength 5/5, CN 3 -12 intact Musculoskeletal: Present: no deformities, no erythema, no cyanosis, no clubbing Psychiatric: Present: mood/affect appropriate, cooperative - Lab 07/19/16 04:41 07/19/16 04:41 Most recent lab results Calcium 9.2 mg/dL (8.6-10.8) 07/19/16 04:41 Magnesium 1.8 mg/dL (1.6-2.6) 07/19/16 04:41 Urine Creatinine 59 mg/dL 07/13/16 21:00 Urine Total Protein 66 mg/dL (1-14) H 07/13/16 21:00 - VTE Documentation of Mechanical Device: Intermittent pneumatic compression device Consult Discharge Plan - Plan Referrals: Aliyah Prado, METER INSTALLER AND REMOVER [Primary Care Provider] - (walk in facilities.. no need for an appointment.)
[2016-07-19] MEDS: Insulin DETEMIR 100 UNIT/ML X5UNITS SQ SCH ×2 (08:09→22:12)
[2016-07-19 09:39] LABS: Acinetobacter baumannii by PCR Not Detected (Not Detect); Candida albicans by PCR Not Detected (Not Detect); Candida glabrata by PCR Not Detected (Not Detect); Candida krusei by PCR Not Detected (Not Detect); Candida parapsilosis by PCR Not Detected (Not Detect); Candida tropicalis by PCR Not Detected (Not Detect); Enterococcus by PCR ***DETECTED*** (Not Detect); Escherichia coli by PCR Not Detected (Not Detect); Klebsiella oxytoca by PCR Not Detected (Not Detect); Klebsiella pneumoniae by PCR Not Detected (Not Detect); Pseudomonas aeruginosa by PCR Not Detected (Not Detect); Serratia marcescens by PCR Not Detected (Not Detect); Staphylococcus aureus by PCR Not Detected (Not Detect); Streptococcus agalactiae(B)PCR Not Detected (Not Detect); Streptococcus by PCR Not Detected (Not Detect); Streptococcus pneumoniae PCR Not Detected (Not Detect); Streptococcus pyogenes (A) PCR Not Detected (Not Detect); blaKPC Carbapenem-Resist Gene Not Detected (Not Detect); mecA Methicillin-Resist Gene Not Detected (Not Detect); vanA/B Vancomycin-Resist Genes ***DETECTED*** (Not Detect)
--- NOTE | 2016-07-19 10:40 | Rheumatology Progress Note ---
<Jluis Sanders - Last Filed: 07/19/16 10:43> Date of Encounter: 07/19/16 Time of Encounter: 10:25 Rheumatology Assess and Plan (1) Diffuse pulmonary alveolar hemorrhage Current Visit: Yes Status: Acute Patient required significantly more function over the weekend, up to 15 L supplemental oxygen. Because of her worsening pulmonary function, she was started on significantly higher doses of Solu-Medrol (125 mg every 6 hours). Though her respiratory status has been improving since this weekend and she is now on 7 L supplemental oxygen and patient has reports no difficulties currently. Patient renal function is mildly improved, but stable. Overall, she has continued to have worsened renal function from baseline and is showing significant proteinuria. Nephrology is following. Preliminary renal biopsy does not show any active renal crescents, only just chronic histologic features of DM , HTN, obesity. Infectious workup so far has been negative: blood cultures x3 are negative, echo negative for vegetations, sputum cultures negative, HIV negative, TB negative, legionella/strep negative. Patient found to have p-ANCA and MPO antibodies, suggesting microscopic polyangiitis, that appears to be isolated to the lungs. We will transition patient to 60 mg prednisone by mouth Anti-GBM antibodies negative Would like to start rituximab given severity of patient illness Infectious disease thus far has been negative, though still awaiting results from TB There is concern for rituximab not being covered by insurance for inpatient use We will speak with social work regarding potential coverage of medication while inpatient, if unable to obtain medication for inpatient use we will set up patient for outpatient infusion upon discharge when patient otherwise clinically stable If patient condition worsens, will consider other medications for her vasculitis (2) P-ANCA and MPO antibodies positive Current Visit: Yes Status: Acute Elevation in patient in p-ANCA and MPO antibodies are suggestive of microscopic polyangitis. C-ANCA with PR3 antibodies would be more suggestive of gramulomatosis with polyangitis. And it is unlikely to be eosinophilic granulomatosis with polyangitis with lack of peripheral eospinophils seen and lack of preceding suggestive symptoms. Plan as above (3) Renal insufficiency Current Visit: Yes Status: Acute Patient's serum creatinine has been slowly and steadily improving. Patient appeared to have significant proteinuria as seen on UA and protein/creatinine ratio. She does have history of atrial fibrillation and uncontrolled diabetes mellitus, but patient is p-ANCA positive with anti-MPO antibodies present, but no crescents seen on preliminary renal biopsy. So vasculitis likely not affecting patient kidneys Anti-GBM antibody is negative Further plan as above Nephrology is following and appreciate recommendations for continued management/ care Continue to monitor renal function with daily chemistry Avoid nephrotoxic agents if possible (4) Proteinuria Current Visit: Yes Status: Chronic As above (5) Diabetes mellitus type 2, uncontrolled Current Visit: Yes Status: Chronic Patient blood sugars will continue to require close monitoring given her continued need of glucocorticoids. - Subjective Interval history: Patient reports she is feeling better today. She reports that she is breathing slightly better, though her cough persists but has improved. She reports she continues to have hemoptysis and some difficulty swallowing. She reports some mild chest pain that feels like chest congestion. Review of systems: Gen.: Denies fever/chills, denies weakness HEENT: Denies sore throat, reports difficulty swallowing, denies vision changes Resp: Mild shortness of breath with exertion, hemoptysis, mild cough with exertion CV: Reports mild chest pain as per history of present illness, denies palpitations, denies tachycardia GI: Reports mild nausea with one of medications, no difficulties otherwise, appetite good Skin: Denies rashes, denies easy bruising, denies swelling Exam Vital Signs, Last 4 Hours Temp Pulse Resp BP Pulse Ox 07/19/16 07:59 98.0 F 78 16 165/71 97 Exam: General: Cooperative, pleasant, no acute distress, alert and oriented 3, answers questions appropriately, on 6 L supplemental oxygen HEENT: Normocephalic, atraumatic, oral mucosa moist Respiratory: No accessory muscle usage, slight Rales auscultated R>L Cardiovascular: Regular rate and rhythm, S1 and S2 present, no murmurs/rubs/ gallops/clicks appreciated GI/abdominal: Nondistended, nontender, soft, normal bowel sounds, no peritoneal signs Extremities: No calf tenderness, noncyanotic, 1+ pedal edema bilaterally, mild pretibial edema bilaterally, warm, lower extremity pulses palpable and symmetrical Neurological: Alert and oriented 3, no facial droop, no focal deficits Skin: Dry, intact, normal color Objective Data 07/19/16 04:41 07/19/16 04:41 Immunology Rheumatoid Factor < 15 IU/mL (0-29) 07/11/16 17:44 Cycl Citrul Peptide IgG 12 Units (0-19) 07/11/16 17:44 CORINNE Screen DETECTED (None Detected) A 07/11/16 17:44 CORINNE Titer 1:1280 (<1:40) H 07/11/16 17:44 Myeloperoxidase Ab 44 AU/mL (0-19) H 07/11/16 17:44 ANCA IgG 1:5120 (<1:20) H 07/13/16 14:17 SS-A/Ro 52 kDa Ab 2 AU/mL (0-40) 07/13/16 16:45 SS-A Ro 60 kDa Ab 71 AU/mL (0-40) H 07/13/16 16:45 SS-B/La Antibody 0 AU/mL (0-40) 07/13/16 16:45 Sm (Mcdowell) IgG Ab, Quant 0 AU/mL (0-40) 07/13/16 16:45 Scl-70 IgG Ab 0 AU/mL (0-40) 07/11/16 17:44 Anti-U1-SUBSCRIPTION CLERK IgG, Quant 0 AU/mL (0-40) 07/13/16 16:45 Glomerular Base Mem IgG 0 AU/mL (0-19) 07/13/16 14:17 Glomer Base Mem IgG IFA NEGATIVE (Negative) 07/13/16 14:17 Serine Protease 3 Ab 5 AU/mL (0-19) 07/11/16 17:44 Complement C3 138 mg/dL (88-201) 07/11/16 17:44 Complement C4 22 mg/dL (10-40) 07/11/16 17:44 - VTE Documentation of Mechanical Device: Intermittent pneumatic compression device Consult Discharge Plan - Plan Referrals: Con Vogt CNP [Advanced Practice Nurse] - 08/02/16 3:30 pm Aliyah Prado CNP [Primary Care Provider] - (walk in facilities.. no need for an appointment.) <Amrit Cai - Last Filed: 07/19/16 17:01> Date of Encounter: 07/19/16 Rheumatology Assess and Plan (1) Diffuse pulmonary alveolar hemorrhage Current Visit: Yes Status: Acute (2) Renal insufficiency Current Visit: Yes Status: Acute (3) CORINNE positive Current Visit: Yes Status: Acute (4) Proteinuria Current Visit: Yes Status: Chronic Qualifiers: Proteinuria type: isolated Isolated proteinuria type: with unspecified morphologic lesion Qualified Code(s): N06.9 - Isolated proteinuria with unspecified morphologic lesion (5) Diabetes mellitus type 2, uncontrolled Current Visit: Yes Status: Chronic Qualifiers: Diabetes mellitus complication status: with neurologic complications Diabetes mellitus complication detail: with unspecified neuropathy Diabetes mellitus jail insulin use: with termite inspector use Qualified Code(s): E11.40 - Type 2 diabetes mellitus with diabetic neuropathy, unspecified; E11.65 - Type 2 diabetes mellitus with hyperglycemia; Z79.4 - termite inspector (current) use of insulin Exam Vital Signs, Last 4 Hours Temp Pulse Resp BP Pulse Ox 07/19/16 16:53 97.9 F 71 16 146/82 96 Objective Data 07/19/16 04:41 07/19/16 04:41 Immunology Rheumatoid Factor < 15 IU/mL (0-29) 07/11/16 17:44 Cycl Citrul Peptide IgG 12 Units (0-19) 07/11/16 17:44 CORINNE Screen DETECTED (None Detected) A 07/11/16 17:44 CORINNE Titer 1:1280 (<1:40) H 07/11/16 17:44 Myeloperoxidase Ab 44 AU/mL (0-19) H 07/11/16 17:44 ANCA IgG 1:5120 (<1:20) H 07/13/16 14:17 SS-A/Ro 52 kDa Ab 2 AU/mL (0-40) 07/13/16 16:45 SS-A Ro 60 kDa Ab 71 AU/mL (0-40) H 07/13/16 16:45 SS-B/La Antibody 0 AU/mL (0-40) 07/13/16 16:45 Sm (Mcdowell) IgG Ab, Quant 0 AU/mL (0-40) 07/13/16 16:45 Scl-70 IgG Ab 0 AU/mL (0-40) 07/11/16 17:44 Anti-U1-SUBSCRIPTION CLERK IgG, Quant 0 AU/mL (0-40) 07/13/16 16:45 Glomerular Base Mem IgG 0 AU/mL (0-19) 07/13/16 14:17 Glomer Base Mem IgG IFA NEGATIVE (Negative) 07/13/16 14:17 Serine Protease 3 Ab 5 AU/mL (0-19) 07/11/16 17:44 Complement C3 138 mg/dL (88-201) 07/11/16 17:44 Complement C4 22 mg/dL (10-40) 07/11/16 17:44 All other labs normal. - Attending Attestation I examined this patient and my medical decision making was reviewed with the resident physician. I agree with the documented findings, disposition and treatment as described with these exceptions. Patient has been clinically stable. New blood culture with VRE though previous cultures negative; ID consultation pending. 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 Switching to prednisone 80 mg daily; close monitoring of diabetes. Hold off on further immunosuppression till possible infection addressed; I have started working on outpatient Rituximab. Will continue to follow.
[2016-07-19] MEDS: CloNIDine Patch 0.3 MG PATCH (WEEKLY) TD SCH (10:50)
[2016-07-19] MEDS ORDERED: Insulin Regular, Human 100 UNIT/ML IV ONE (11:28)
[2016-07-19] MEDS ORDERED: predniSONE 20 MG TABLET PO SCH (12:00)
[2016-07-19] MEDS ORDERED: Insulin Human Regular 7 UNIT in 0.9 % Sodium Chloride 10 ML IV ONE (12:13)
[2016-07-19] MEDS: predniSONE 20 MG TABLET PO SCH (12:37)
--- NOTE | 2016-07-19 15:43 | Infectious Disease Consult ---
Date of Encounter: 07/19/16 Time of Encounter: 15:42 Assessment and Plan (1) Acute on chronic respiratory failure with hypoxia Status: Acute Assessment and plan: Secondary to alveolar hemorrhage. 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 Status post bronchoscopy; bronchoscopy report reviewed. No obvious source of infection. Patient is a high dose steroids. (2) Diffuse pulmonary alveolar hemorrhage Status: Acute (3) Gram-positive bacteremia Status: Acute Assessment and plan: 1 out of 2 sets positive. Patient has no SIRS criteria other than leukocytosis which is most likely secondary to high-dose steroids. Patient denies any headaches no neck stiffness no back pain no fevers no chills no night sweats no abdominal issues. Patient does complain of constipation 9 days. At this point since patient has no SIRS criteria and it's only one set, I we'll continue to watch off antibiotics. I did repeat 2 sets blood culture stat right now. Discussed with Dr. Teran We'll continue to follow closely. (4) Atrial fibrillation with RVR Status: Acute (5) Elevated troponin Status: Acute (6) Hemoptysis Status: Acute (7) CORINNE positive Status: Acute Infectious Disease HPI - Data of Consult Patient: new to practice Consult date: 07/19/16 Requesting Physician: Ronnie Teran Primary Care Provider: Aliyah Prado CNP - Consult Narrative Reason for consult: bacteremia History of present illness: Ms. Graham is a 60 year old female Patient was admitted on July 11, 2016 with hemoptysis, we are consult to today for positive blood culture 1 set on 07/18/16. Patient is a 60-year-old woman with past medical history significant for coronary artery disease with history of CABG, diabetes mellitus type 2, chronic anemia and hypothyroidism came to the emergency department complaining of coughing up blood. Apparently patient was in the usual state of health until the day prior to admission which started coughing and had sputum production. Patient then started coughing up roberto blood about 2 mL mixed with sputum. Patient was also having some chest pain. Patients chest pain was right-sided, pleuritic and nonradiating. Patient has been having shortness of breath that has been progressively worse for the last 2 days prior to admission. Patient apparently denied any fevers chills night sweats or recent travel or sick contacts prior to admission. Patient does have baseline chronic respiratory failure and she is on 2 L/m at home. Patient presented to the emergency department [facility] where she was found to be tachycardic with heart rate in the 130s, irregular, patient also has a WBC count of 27,000 with toxic granulation. Coagulation workup showed normal PT/PTT and INR. Chest x-ray showed bilateral multifocal pneumonia. Patient was said to be in A. fib with RVR started on Cardizem drip and a stat echocardiogram and CT chest were obtained. Since admission patient has been afebrile, tachycardic and had a WBC count of 24.7 with 80% neutrophils no bands. ESR was 61. Patient also had troponin leak and a creatinine of 1.2:. patient had extensive workup done by rheumatology which revealed a positive CORINNE titer of 1: 1280. Myeloperoxidase was high at 44, Anka IgG was elevated at 1:5120 and SSA Ro space 60 KDA was also elevated at 71. Hepatitis profile was done and came back negative. HIV was done and was negative. PTH was done and was elevated at 158 and a TSH was low at 0.072. CT scan of the chest on 07/11/16 revealed extensive bilateral ground glass density with peripheral nodular-appearing airspace disease is nonspecific. Findings may reflect post infectious/inflammatory etiology versus alveolar hemorrhage. 2-D echo was performed on 07/11/16 and results noted. There is some hypokinesia of the basal inferior wall with good left ventricle ejection fraction. A bronchoscopy was performed on 07/11/[address] escobar which revealed bilateral lung abnormalities. Fresh blood was found throughout the tracheobronchial tree. The bleeding site was not identified. BAL was performed in the right lower lobe of the lung and sent for cell count, bacterial culture, viral smears and cultures, and fungal and AFB analysis and cytology. Cytology was done and it showed acute inflammatory cells, bronchial cells and alveolar macrophages. Extensive micral workup revealed no infection from 07/11 07/12 and 07/13/2016. There were concerned for possible infectious etiology so a repeat blood culture was obtained on 07/18/16 and it came back gram-positive gram-positive cocci. PCR. Enterococcus that is vancomycin resistant. We were asked to evaluate the patients make further recommendations. Patient has no ulcers criteria other than leukocytosis which could be attributed to very high dose of prednisone. Patient has no fever no tachycardia. CC: Ronnie R Teran Past Med Surg Social Fam HX - Past Medical History Medical history: atrial fibrillation, COPD, coronary artery disease, diabetes, GERD, hyperlipidemia, hypertension, myocardial infarction, RA, thyroid disease, TIA Psychiatric history: no psych history - Past Surgical History Surgical History: angioplasty/stent, coronary bypass (CABG), hysterectomy, thyroidectomy - Social History Smoking Status: Former smoker Packs per day: 1.5 Smokeless Tobacco Status: No Alcohol use: none Drug use: marijuana - Family History Mother Adopted: No Family Member Ethnicity: Non- Living Status: Hx Family Cardiac Disorders: Yes ( of MD) Hx Family Respiratory Disorders: No Hx Family Cancer: Yes (breast ca) Hx Family GI Disorders: No Hx Family Endocrine Disorder: No Hx Family Neuromuscular Disorders: No Hx Family Neurologic Disorders: No Hx Family HEENT Disorders: No Hx Family Autoimmune Disorders: No Brother Living Status: Still Living Hx Family Cardiac Disorders: Yes Hx Family Respiratory Disorders: Yes Hx Family Cancer: Yes Hx Family Endocrine Disorder: Yes Hx Family Medical Disorders: Yes Infectious Disease-CN:Meds Clopidogrel [Plavix] 75 mg PO DAILY 06/10/15 [History] Cyclobenzaprine [Flexeril] 10 mg PO TID 06/10/15 [History] Gabapentin [Neurontin] 300 mg PO TID 06/10/15 [History] Insulin ASPART [NovoLOG] 21 unit SQ TIDWM 06/10/15 [History] Insulin Glargine [Lantus] 70 unit SQ HS 06/10/15 [History] Isosorbide DInitrate [Isosorbide Dinitrate] 30 mg PO BID 06/10/15 [History] Rosuvastatin [Crestor] 40 mg PO DAILY 06/10/15 [History] amLODIPine [Norvasc] 10 mg PO DAILY 06/10/15 [History] traMADol [Ultram] 50 mg PO QID 06/10/15 [History] Levothyroxine Sodium [Levoxyl] 125 mcg PO DAILY 02/01/16 [History] metFORMIN [Glucophage] 1,000 mg PO BID 02/01/16 [History] BuPROPion [Wellbutrin] 100 mg PO BID 03/20/16 [History] Fenofibrate 54 mg PO DAILY 03/20/16 [History] Hydralazine HCl 100 mg PO BID 03/26/16 [History] Omeprazole [PriLOSEC] 20 mg PO DAILY 03/26/16 [History] cloNIDine HCl [CloNIDine HCl] 0.2 mg PO BID #60 tablet 03/29/16 [Rx] Metoprolol [Lopressor] 100 mg PO BID 07/02/16 [History] Sennosides/Docusate Sodium [Senna Plus] 1 tab PO BID PRN 07/02/16 [History] Ferrous Sulfate 325 mg PO BIDWM #60 tablet. 07/03/16 [Rx] Losartan [Cozaar] 25 mg PO DAILY #30 tablet 07/03/16 [Rx] hydroCHLOROthiazide [Hydrochlorothiazide] 25 mg PO DAILY 07/11/16 [History] Allergies lisinopril Allergy (Verified 07/11/16 05:00) Swelling of Lip/Tongue/Throat Penicillins [PCN] Allergy (Verified 03/19/16 21:38) Hives Review of systems: 10 point review of systems done, negative other for what mentioned in history of present illness. Exam - Constitutional Vitals: Temp Pulse Resp BP Pulse Ox 97.6 F 83 16 167/61 99 07/19/16 11:16 07/19/16 11:16 07/19/16 11:16 07/19/16 11:16 07/19/16 11:16 General appearance: cooperative, no acute distress, no febrile - Head Head exam: Present: atraumatic, normocephalic - Eye Eye exam: Present: EOMI, PERRL - Neck Neck exam: Present: full ROM, normal inspection. Absent: meningismus - Respiratory Respiratory exam: Present: CTAB. Absent: wheezes - Cardiovascular Cardiovascular exam: Present: RRR, +S1, +S2 - GI/Abdominal GI/Abdominal exam: Present: normal bowel sounds, soft. Absent: tenderness - Extremities Exam Extremities exam: Present: full ROM, normal inspection. Absent: pedal edema - Back Exam Back exam: Present: normal inspection. Absent: vertebral tenderness - Neurological Exam Neurological exam: Present: alert, oriented X3. Absent: no focal deficits - Psychiatric Psychiatric exam: Present: normal affect, normal mood - Skin Skin exam: Absent: rash Infectious Disease CN: Results - Labs CBC & Chem 7: 07/20/16 06:49 07/20/16 06:49 Cultures: Cultures 07/18/16 11:37 Blood Culture - Preliminary Peripheral Venipuncture Gram Positive Cocci 07/11/16 09:07 Blood Culture - Final Peripheral Venipuncture No growth. 07/13/16 12:30 Sputum Culture - Final Sputum 07/11/16 16:47 Respiratory Culture - Final Right Lower Lobe Lung Normal upper respiratory tract juan m. No apparent pathogens isolated. 07/11/16 16:47 Gram Stain - Final Right Lower Lobe Lung 07/11/16 16:47 Acid Fast Stain - Final Right Lower Lobe Lung 07/12/16 23:12 Legionella Antigen - Final Urine,Clean Catch Streptococcus pneumoniae Antigen (M - Final Serology: Serology 07/18/16 07/17/16 07/13/16 Range/Units 11:37 10:31 21:00 Urine Color (Yellow) Urine Clarity (Clear) Urine pH (5.0-8.0) pH Units Ur Specific Valentine (1.010-1.025) Urine Protein (Neg-Trace) mg/dL Urine Glucose (UA) (Normal) mg/dL Urine Ketones (Negative) mg/dL Urine Blood (Negative) Urine Nitrite (Negative) Urine Bilirubin (Negative) Urine Urobilinogen (Normal) mg/dL Ur Leukocyte Esterase (Negative) Urine Microscopic RBC (0-3) per hpf Urine Microscopic WBC (0-3) per hpf Ur Squamous Epith Cells (None-Few) per lpf Urine Bacteria (None-Few) per hpf Hyaline Casts (None-Few) per lpf Urine Yeast Ur Culture Indicated? (NO) Urine Creatinine 59 mg/dL Urine Microalbumin mg/L Microalb/Creat Ratio (0-30) Protein/Creatinin Ratio 1.12 H (0-0.20) mg/mg Urine Total Protein 66 H (1-14) mg/dL Urine Hemosiderin (Negative) Fluid Source Fluid Volume mL Fluid Appearance (Clear) Fluid RBC Fld Tot Nucleated Cell Fluid Seg Neutrophil % % Fluid Lymphocytes % % Fluid Monocytes % % Fluid Other Cells % % A. baumannii (PCR) Not Detected (Not Detect) Jenna albicans (PCR) Not Detected (Not Detect) C. glabrata (PCR) Not Detected (Not Detect) C. krusei (PCR) Not Detected (Not Detect) C. parapsilosis (PCR) Not Detected (Not Detect) C. tropicalis (PCR) Not Detected (Not Detect) Enterobacteriac sp PCR Not Detected (Not Detect) E. cloacae complex PCR Not Detected (Not Detect) Enterococcus sp PCR DETECTED A (Not Detect) E. coli (PCR) Not Detected (Not Detect) H. influenzae (PCR) Not Detected (Not Detect) Hepatitis A IgM Ab (Nonreactive) Hep Bs Antigen (Nonreactive) Hep B Core IgM Ab (Nonreactive) Hepatitis C Ab Screen (Nonreactive) HIV Ag/Ab Combo Qual Nonreactive (Nonreactive) Klebsiella oxytoca PCR Not Detected (Not Detect) Klebsiella pneumoniae Not Detected (Not Detect) List. monocytogenes PCR Not Detected (Not Detect) N. meningitidis (PCR) Not Detected (Not Detect) Proteus species (PCR) Not Detected (Not Detect) Serratia marcescens PCR Not Detected (Not Detect) Staphylococcus sp PCR Not Detected (Not Detect) Staph aureus (PCR) Not Detected (Not Detect) mecA-Methicil Res Gene Not Detected (Not Detect) Streptococcus sp PCR Not Detected (Not Detect) Group A Strep DNA Not Detected (Not Detect) Group B Strep (PCR) Not Detected (Not Detect) Strep pneumoniae (PCR) Not Detected (Not Detect) P. aeruginosa (PCR) Not Detected (Not Detect) Peter/B-Vanco Res Genes DETECTED A (Not Detect) KPC (blaKPC) Detect PCR Not Detected (Not Detect) 07/13/16 07/13/16 07/13/16 Range/Units 21:00 21:00 21:00 Urine Color Yellow (Yellow) Urine Clarity Cloudy A (Clear) Urine pH 6.0 (5.0-8.0) pH Units Ur Specific Valentine 1.025 (1.010-1.025) Urine Protein 100 H (Neg-Trace) mg/dL Urine Glucose (UA) >=1000 H (Normal) mg/dL Urine Ketones Negative (Negative) mg/dL Urine Blood Moderate H (Negative) Urine Nitrite Negative (Negative) Urine Bilirubin Negative (Negative) Urine Urobilinogen Normal (Normal) mg/dL Ur Leukocyte Esterase Negative (Negative) Urine Microscopic RBC 0-3 (0-3) per hpf Urine Microscopic WBC 3-5 H (0-3) per hpf Ur Squamous Epith Cells Many H (None-Few) per lpf Urine Bacteria None Seen (None-Few) per hpf Hyaline Casts Few (None-Few) per lpf Urine Yeast Test Not Performed Ur Culture Indicated? NO (NO) Urine Creatinine 58 mg/dL Urine Microalbumin 235 mg/L Microalb/Creat Ratio 405 H (0-30) Protein/Creatinin Ratio (0-0.20) mg/mg Urine Total Protein (1-14) mg/dL Urine Hemosiderin NEGATIVE (Negative) Fluid Source Fluid Volume mL Fluid Appearance (Clear) Fluid RBC Fld Tot Nucleated Cell Fluid Seg Neutrophil % % Fluid Lymphocytes % % Fluid Monocytes % % Fluid Other Cells % % A. baumannii (PCR) (Not Detect) Jenna albicans (PCR) (Not Detect) C. glabrata (PCR) (Not Detect) C. krusei (PCR) (Not Detect) C. parapsilosis (PCR) (Not Detect) C. tropicalis (PCR) (Not Detect) Enterobacteriac sp PCR (Not Detect) E. cloacae complex PCR (Not Detect) Enterococcus sp PCR (Not Detect) E. coli (PCR) (Not Detect) H. influenzae (PCR) (Not Detect) Hepatitis A IgM Ab (Nonreactive) Hep Bs Antigen (Nonreactive) Hep B Core IgM Ab (Nonreactive) Hepatitis C Ab Screen (Nonreactive) HIV Ag/Ab Combo Qual (Nonreactive) Klebsiella oxytoca PCR (Not Detect) Klebsiella pneumoniae (Not Detect) List. monocytogenes PCR (Not Detect) N. meningitidis (PCR) (Not Detect) Proteus species (PCR) (Not Detect) Serratia marcescens PCR (Not Detect) Staphylococcus sp PCR (Not Detect) Staph aureus (PCR) (Not Detect) mecA-Methicil Res Gene (Not Detect) Streptococcus sp PCR (Not Detect) Group A Strep DNA (Not Detect) Group B Strep (PCR) (Not Detect) Strep pneumoniae (PCR) (Not Detect) P. aeruginosa (PCR) (Not Detect) Peter/B-Vanco Res Genes (Not Detect) KPC (blaKPC) Detect PCR (Not Detect) 07/13/16 07/11/16 Range/Units 16:45 16:47 Urine Color (Yellow) Urine Clarity (Clear) Urine pH (5.0-8.0) pH Units Ur Specific Valentine (1.010-1.025) Urine Protein (Neg-Trace) mg/dL Urine Glucose (UA) (Normal) mg/dL Urine Ketones (Negative) mg/dL Urine Blood (Negative) Urine Nitrite (Negative) Urine Bilirubin (Negative) Urine Urobilinogen (Normal) mg/dL Ur Leukocyte Esterase (Negative) Urine Microscopic RBC (0-3) per hpf Urine Microscopic WBC (0-3) per hpf Ur Squamous Epith Cells (None-Few) per lpf Urine Bacteria (None-Few) per hpf Hyaline Casts (None-Few) per lpf Urine Yeast Ur Culture Indicated? (NO) Urine Creatinine mg/dL Urine Microalbumin mg/L Microalb/Creat Ratio (0-30) Protein/Creatinin Ratio (0-0.20) mg/mg Urine Total Protein (1-14) mg/dL Urine Hemosiderin (Negative) Fluid Source RLL BAL Fluid Volume 22 mL Fluid Appearance Cloudy A (Clear) Fluid RBC TNP Fld Tot Nucleated Cell TNP Fluid Seg Neutrophil % 27.0 % Fluid Lymphocytes % 50.0 % Fluid Monocytes % 2.0 % Fluid Other Cells % 21.0 % A. baumannii (PCR) (Not Detect) Jenna albicans (PCR) (Not Detect) C. glabrata (PCR) (Not Detect) C. krusei (PCR) (Not Detect) C. parapsilosis (PCR) (Not Detect) C. tropicalis (PCR) (Not Detect) Enterobacteriac sp PCR (Not Detect) E. cloacae complex PCR (Not Detect) Enterococcus sp PCR (Not Detect) E. coli (PCR) (Not Detect) H. influenzae (PCR) (Not Detect) Hepatitis A IgM Ab Nonreactive (Nonreactive) Hep Bs Antigen Nonreactive (Nonreactive) Hep B Core IgM Ab Nonreactive (Nonreactive) Hepatitis C Ab Screen Nonreactive (Nonreactive) HIV Ag/Ab Combo Qual (Nonreactive) Klebsiella oxytoca PCR (Not Detect) Klebsiella pneumoniae (Not Detect) List. monocytogenes PCR (Not Detect) N. meningitidis (PCR) (Not Detect) Proteus species (PCR) (Not Detect) Serratia marcescens PCR (Not Detect) Staphylococcus sp PCR (Not Detect) Staph aureus (PCR) (Not Detect) mecA-Methicil Res Gene (Not Detect) Streptococcus sp PCR (Not Detect) Group A Strep DNA (Not Detect) Group B Strep (PCR) (Not Detect) Strep pneumoniae (PCR) (Not Detect) P. aeruginosa (PCR) (Not Detect) Peter/B-Vanco Res Genes (Not Detect) KPC (blaKPC) Detect PCR (Not Detect) - VTE Documentation of Mechanical Device: Intermittent pneumatic compression device Consult Discharge Plan - Plan Referrals: Con Vogt CNP [Advanced Practice Nurse] - 08/02/16 3:30 pm Aliyah Prado CNP [Primary Care Provider] - (walk in facilities.. no need for an appointment.)
[2016-07-19] MEDS ORDERED: DAPTOmycin 500 MG in 0.9 % Sodium Chloride 100 ML IVPB SCH (16:00)
--- NOTE | 2016-07-19 16:26 | Internal Med Progress Note ---
Date of Encounter: 07/19/16 Time of Encounter: 11:45 - Assessment and plan (1) Diffuse pulmonary alveolar hemorrhage Current Visit: Yes Status: Acute Assessment and plan: Myeloperoxidase positive, methylprednisolone 125 mg every 6 hours pulse completed, switched to prednisone as per rheum input. Had a kidney biopsy yesterday, no evidence of renal involvement, rheumatology to determine additional therapy for her vasculitis. Continue with Levemir to 50 bid. We will continue monitoring fingerstick. Had glucose over 400 today a dose of iv push insulin was given. Leukocytosis trending up slightly, likely due to steroids, positive blood culture, VRE, a consultation with ID was requested for further recommendations. D/W ID, recommendation was that culture is likely a contminant, another set of cultures has been sent, will follow. No additional antibiotics as per ID recommendations, will monitor clinically and follow cultures. . (2) Diabetes mellitus type 2, uncontrolled Current Visit: Yes Status: Chronic Assessment and plan: due to systemic steroids, continue insulin 50 units bid. continue monitring. Qualifiers: Diabetes mellitus complication status: with neurologic complications Diabetes mellitus complication detail: with unspecified neuropathy Diabetes mellitus bed bug exterminator insulin use: with alf use Qualified Code(s): E11.40 - Type 2 diabetes mellitus with diabetic neuropathy, unspecified; E11.65 - Type 2 diabetes mellitus with hyperglycemia; Z79.4 - prison (current) use of insulin (3) DVT prophylaxis Current Visit: No Status: Acute (4) Acute on chronic respiratory failure with hypoxia Current Visit: Yes Status: Acute (5) Hemoptysis Current Visit: Yes Status: Acute (6) Atrial fibrillation Current Visit: Yes Status: Chronic Assessment and plan: on cardizem and betablockers, ventricular rate currently controlled. no AC due to hemoptysis. Qualifiers: Atrial fibrillation type: chronic Qualified Code(s): I48.2 - Chronic atrial fibrillation - Subjective Interval history: no fever, states that feels better, still on oxygen supplementation with high flow nasal cannula, speaking full sentences. still hemoptysis. - Constitutional Vitals: Temp Pulse Resp BP Pulse Ox 97.6 F 83 16 167/61 99 07/19/16 11:16 07/19/16 11:16 07/19/16 11:16 07/19/16 11:16 07/19/16 11:16 General appearance: Present: mild distress, A&O X 3 - Head Head exam: Present: atraumatic, normocephalic - Eye Eye exam: Present: PERRL, conjuntiva pink, sclera anicteric Pupils: Present: PERRL - Neck Neck exam general surgery: Present: supple, trachea midline. Absent: lymphadenopathy - Respiratory Respiratory exam: Present: rhonchi. Absent: accessory muscle use, rales, wheezes - Cardiovascular Cardiovascular exam: Present: RRR, +S1, +S2. Absent: diastolic murmur, gallop, rubs, systolic murmur - GI/Abdominal GI/Abdominal exam: Present: normal bowel sounds, soft, no peritoneal signs. Absent: distended, tenderness - Extremities Exam Extremities exam: Present: warm, radial pulses palpable and symetrical. Absent : calf tenderness, cyanotic, pedal edema - Neurological Exam Neurological exam: Present: CN II-XII intact, oriented X3, no focal deficits. Absent: pronater drift, facial droop, speech deficit - Skin Skin exam: Present: dry, intact Internal Medicine: Result - Labs CBC & Chem 7: 07/19/16 04:41 07/19/16 04:41 Labs: Short CBC 07/19/16 Range/Units 04:41 WBC 18.9 H (4.3-11.1) K/mcL Hgb 9.2 L (11.5-15.4) g/dL Hct 28.1 L (35.3-44.9) % Plt Count 294 (140-400) K/mcL Neutrophils # 17.1 H (1.6-8.9) K/mcL BMP 07/19/16 04:41 Sodium 139 Potassium 2.7 L Chloride 98 Carbon Dioxide 29 BUN 53 H Creatinine 1.29 H Glucose 243 H Calcium 9.2 - ABG Interpretation ABG results: PT/INR, D-dimer PT 12.0 Seconds (9.4-12.1) 07/17/16 04:05 - VTE Documentation of Mechanical Device: Intermittent pneumatic compression device Consult Discharge Plan - Plan Referrals: Con Vogt MACHINE PIE MAKER [Advanced Practice Nurse] - 08/02/16 3:30 pm Aliyah Prado CNP [Primary Care Provider] - (walk in facilities.. no need for an appointment.)
[2016-07-20 01:41] LABS: QuantiFERON Mitogen minus NIL 0.03 IU/mL
[2016-07-20] MEDS: *HR* OxyCODONE/APAP 10/325 TABLET PO PRN ×2 (03:39→21:59)
[2016-07-20 07:15] LABS: Basophils % 0.1 %; Hematocrit 30.9 % (35.3-44.9); Immature Granulocytes % 1.8 % (0-4); Lymphocytes # 0.9 K/mcL (0.6-4.6); Lymphocytes % 4.9 %; Mean Corpuscular HGB Conc 32.4 g/dL (31.6-35.5); Mean Corpuscular Volume 83.5 fL (83.0-100.0); Mean Platelet Volume 9.9 fL (9.4-12.4); Monocytes # 0.8 K/mcL (0.0-1.3); Monocytes % 4.6 %; Neutrophils # 15.6 K/mcL (1.6-8.9); Nucleated Red Blood Cells 0.2 /100 WBC (0); Platelet Count 294 K/mcL (140-400); Red Cell Distribution Width 16.9 % (11.5-14.5); Segmented Neutrophils % 88.6 %
[2016-07-20 07:50] LABS: Potassium 3.8 mEq/L (3.5-4.5)
--- NOTE | 2016-07-20 07:57 | Nephrology Progress Note ---
Date of Encounter: 07/20/16 Time of Encounter: 07:57 - Assessment and Plan (1) Hypertension Current Visit: Yes Status: Chronic Bp 146-172/61-82, rate 59-83,irregular. Uncontrolled, with additional insult of active vasculitis Continue to monitor bp Goal bp <150/90 Start clonidine 0.2 mg tid, continue with clonidine patch. Plan to decrease to 0.1mg tid tomorrow awaiting full efficacy of patch. Continue Metoprolol 50mg bid. Caution advised due to possible bradycardia. Continue monitoring. Continue with 20mg lasix. Discontinued hydralazine. Avoid ACEi and ARBs, may consider as outpatient once kidney function stabilizes. Continue with renal protective startegy, avoid nephrotoxins. If patient's kidney function continues to improve and bp is stable, Nephrology will consider signing off. Will follow through till tomorrow. Qualifiers: Hypertension type: essential hypertension Qualified Code(s): I10 - Essential (primary) hypertension (2) Proteinuria Current Visit: Yes Status: Chronic Continue to monitor and improve bp, goal <150/90. CORINNE positive, ANCA positive, MPO positive, GBM negative. 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 Preliminary read from Pathologist from renal biopsy. No confirmation of ANCA associated vasculitis, no crescents. Only chronic diabetic and hypertensive changes. Mentioned possible drug induced lupus from Hydralazine. Also mentioned the possibility of false positive ANCA and CORINNE from hydralazine. Discontinued hydralazine. 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 Pathologist had queried about possible infection, now confirmed patient has gram positive bacteremia, though initial blood cultures were negative. High dose steroids x3 days completed. Defer additional immunological management to Rheumatology and Pulmonology as this appears not to be affecting directly the kidneys based on renal biopsy results. Rheumatology plan to continue 80mg oral prednisone qd. Continue with renal protective strategy, avoid nephrotoxic agents. No urgent dialysis at this time. Continue following labs. Qualifiers: Proteinuria type: isolated Isolated proteinuria type: with unspecified morphologic lesion Qualified Code(s): N06.9 - Isolated proteinuria with unspecified morphologic lesion (3) Gram-positive cocci bacteremia Current Visit: Yes Status: Acute Blood cultures x2 drawn 07/17/16 growing gram positive cocci. Enterococcus with vancomycin resistance. Infectious Disease following patient. Initially received 1 dose 500mg Daptomycin. Currently on Linezolid 60mg q12h. No adjustment for renal impairment Continue per Hospitalist plan Avoid nephrotoxic agents, continue with renal protective strategy. (4) CORINNE positive Current Visit: Yes Status: Acute CORINNE titer 1:1280 (previously negative in 2015) Rheumatology on board. (5) P-ANCA and MPO antibodies positive Current Visit: Yes Status: Acute ANCA positive 1:5120 SS-A/Ri 60kDa Ab positive at 71, MPO Ab positive at 44. Rheumatology on board. Quantiferon Gold TB received, pending results. HIV negative. (6) Chronic kidney disease, stage 3 Current Visit: Yes Status: Chronic Patient with known history of CKD stage III. Function continues improving. BUN 48, Cr 1.24, GFR 44 Continue to monitor I&O Gentle fluid hydration Continue monitoring labs Continue with renal protective strategy, avoid nephrotoxic agents. (7) Hematuria Current Visit: Yes Status: Acute Hematuria noted on this hospital visit UA, change from prior Urine studies in 2015 which were negative for blood. Continue per plan in assessment above. (8) Hypokalemia Current Visit: Yes Status: Resolved Potassium at 3.8 this morning from 2.7 yesterday. May be secondary to potassium loss from lasix. Decreased lasix to 20mg qd yesterday May consider potassium sparing diuretic such as spironolactone if continues to worsen. Potassium 40Eq qd this morning. Plan to continue with 10mEq bid as outpatient Continue following labs. (9) Diabetes mellitus type 2, uncontrolled Current Visit: Yes Status: Chronic Known history of type II diabetes uncontrolled on termite treater insulin, receiving high dose steroids. Glucose 323 Continue monitoring. Continue per Hospitalist plan. Diet: Diabetic, Cardiac, Renal. Qualifiers: Diabetes mellitus complication status: with neurologic complications Diabetes mellitus complication detail: with unspecified neuropathy Diabetes mellitus fpc insulin use: with termite treater use Qualified Code(s): E11.40 - Type 2 diabetes mellitus with diabetic neuropathy, unspecified; E11.65 - Type 2 diabetes mellitus with hyperglycemia; Z79.4 - termite exterminator helper (current) use of insulin (10) Diffuse pulmonary alveolar hemorrhage Current Visit: Yes Status: Acute Preliminary read of renal biopsy revealed no crescents or ANCA associate vasculitis findings. 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 Incentive spirometry, patient still requiring high flow oxygen. May require social work to set up home oxygen as needed. Continue per plan of Hospitalist. (11) Anemia Current Visit: Yes Status: Acute Patient with known history of anemia. Normocytic anemia upon review of labs. Hb 9.3 on arrival to [place] ED. Hb at 10.1 this morning. Continue to monitor labs Qualifiers: Anemia type: unspecified type Qualified Code(s): D64.9 - Anemia, unspecified (12) Hypothyroid Current Visit: Yes Status: Chronic History of hypothyroidism s/p thyroidectomy. TSH low at 0.072 PTH high 158.3 Qualifiers: Hypothyroidism type: acquired Qualified Code(s): E03.9 - Hypothyroidism, unspecified Subjective Principal diagnosis: hemoptysis Interval history: Patient reports doing well overnight. Continues to report some mild dyspnea, has been on 6L high flow cannula overnight, no Bipap. Continue coughing up dark black clot-like material in decreasing amounts and feel some tightness of her chest. Patient reports normal urine, no dysuria, no blood. Patient denies fevers, chills, sweats, changes in bowels or bladder, hematuria, dysuria, weakness, or loss of sensation. Bp 146-172/61-82. Blood cultures x2 grew gram positive cocci, patient started on Linezolid per Hospitalist. Objective - Vital Signs Vital signs: Vital Signs Temp Pulse Resp BP Pulse Ox 07/20/16 05:31 98.7 F 59 16 168/74 90 07/20/16 00:02 97.9 F 71 15 172/69 98 07/19/16 20:31 97.9 F 80 18 166/56 98 07/19/16 16:53 97.9 F 71 16 146/82 96 07/19/16 11:16 97.6 F 83 16 167/61 99 07/19/16 07:59 98.0 F 78 16 165/71 97 Intake and Output 07/19/16 07/19/16 07/20/16 15:59 23:59 07:59 Intake Total 540 / 540 340 / 340 Output Total 650 / 650 Balance -110 / -110 340 / 340 Intake: Oral 540 / 540 340 / 340 Output: Urine 650 / 650 Other: Meal Lunch Dinner Percent of Meal Consumed 100% 100% Stool Size Moderate Stool Consistency soft Stool Color Brown # Voids 1 # Bowel Movements 1 Weight 85.53 kg Blood Glucose* 425 396 256 Patient Weight 07/20/16 23:59 Weight 85.53 kg - General Appearance General appearance: Present: well-developed, well-nourished, appears started age , obese EENT: Present: PERRL, mucous membranes moist Neck: Present: no JVD, no thyromegaly, no carotid bruit, supple Respiratory: Present: course breath sounds Cardiology: Present: no murmurs, no edema, regular rate, irregular rhythm, normal S1, normal S2 Gastrointestinal: Present: normoactive bowel sounds, no tenderness, no guarding Integumentary: Present: no rash, warm and dry Neurologic: Present: no focal deficit, alert and oriented x3, strength 5/5, CN 3 -12 intact Musculoskeletal: Present: no deformities, no erythema, no cyanosis, no clubbing Psychiatric: Present: mood/affect appropriate, cooperative - Lab 07/20/16 06:49 07/20/16 06:49 Most recent lab results Calcium 9.0 mg/dL (8.6-10.8) 07/20/16 06:49 Magnesium 1.8 mg/dL (1.6-2.6) 07/19/16 04:41 Urine Creatinine 59 mg/dL 07/13/16 21:00 Urine Total Protein 66 mg/dL (1-14) H 07/13/16 21:00 - VTE Documentation of Mechanical Device: Intermittent pneumatic compression device Consult Discharge Plan - Plan Referrals: Con Vogt CNP [Advanced Practice Nurse] - 08/02/16 3:30 pm Aliyah Prado CNP [Primary Care Provider] - (walk in facilities.. no need for an appointment.)
[2016-07-20] MEDS ORDERED: predniSONE 20 MG TABLET PO SCH (08:00)
--- NOTE | 2016-07-20 08:27 | Pulmonology Progress Note ---
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 Renal biopsy did not show any evidence of kidney involvement at this time. Clinically she appears to be doing better. Surprisingly however blood cultures positive for gram-positive cocci and 2 sets of cultures which makes possibility this is a real finding very likely. I do not feel however that infection was trigger of her hemoptysis but rather she has become infected while in the hospital. This may have been in some part mediated by immunosuppression while giving high-dose steroids. Clearly the risk of initiating further systemic immunosuppression e.g. Cytoxan or Rituxan in the acute setting outweighs benefit given where she is clinically. The infectious disease service has been consulted on this complicated patient and I am appreciative of their recommendations she is been started on antimicrobials for VRE and will likely need at very least transthoracic echo and probably transesophageal echo to evaluate for endocarditis. From a pulmonary perspective I have reordered a chest x-ray today to evaluate the possibility of new lung involvement i.e. septic emboli. I will defer the management of antimicrobials to the infectious disease/primary medicine service I agree with continuation of enteral steroids (prednisone 80 mg) From a kidney standpoint renal function remained stable renal biopsy was negative for ANCA related glomerulonephritis and ANTI-GMB was negative. Despite making clinical improvement, I feel this patient remains at high risk for serious decompensation and pulmonary service will continue to follow closely (2) P-ANCA and MPO antibodies positive Current Visit: Yes Status: Acute (3) Pneumonia Current Visit: Yes Status: Acute Qualifiers: Qualified Code(s): J18.1 - Lobar pneumonia, unspecified organism (4) Acute on chronic respiratory failure with hypoxia Current Visit: Yes Status: Acute Subjective Principal diagnosis: hemoptysis Interval history: Clinically patient continues to improve each day per her own admission. She does continue to have 2-3 episodes of hemoptysis in approximately need to 12 hour period or for example overnight I looked at the clots at the bedside and they appear to be dark red older appearing denies any evidence of fresh blood. She remains afebrile Presently blood cultures that were drawn on the have resulted positive for gram-positive cocci unclear speciation but concern for VRE Objective PUL Vital signs: Last Vital Signs Temp 98.7 F 07/20/16 05:31 Pulse 59 07/20/16 05:31 Resp 16 07/20/16 05:31 BP 168/74 07/20/16 05:31 Pulse Ox 90 07/20/16 05:31 General appearance: no acute distress ENT: oropharynx moist Auscultation: bilateral: rales Cardiovascular: regular rate and rhythm Gastrointestinal: normoactive bowel sounds Extremities: no edema Results - Laboratory Findings CBC and BMP: 07/20/16 06:49 07/20/16 06:49 PT/INR, D-dimer PT 12.0 Seconds (9.4-12.1) 07/17/16 04:05 Abnormal lab findings: Abnormal lab results WBC 17.6 K/mcL (4.3-11.1) H 07/20/16 06:49 RBC 3.70 M/mcL (3.82-4.97) L 07/20/16 06:49 Hgb 10.0 g/dL (11.5-15.4) L 07/20/16 06:49 Hct 30.9 % (35.3-44.9) L 07/20/16 06:49 MCH 27.0 pg (28.0-33.3) L 07/20/16 06:49 RDW 16.9 % (11.5-14.5) H 07/20/16 06:49 Neutrophils # 15.6 K/mcL (1.6-8.9) H 07/20/16 06:49 Nucleated RBCs/100 WBC 0.2 /100 WBC (0) H 07/20/16 06:49 Hypersegmented Neuts Present (Not Present) A 07/14/16 04:24 Polychromasia 1+ (Not Present) A 07/17/16 04:05 Poikilocytosis 1+ (Not Present) A 07/14/16 04:24 Anisocytosis 1+ (Not Present) A 07/17/16 04:05 Microcytosis Present (Not Present) A 07/17/16 04:05 Stomatocytes 1+ (Not Present) A 07/14/16 04:24 ESR 58 mm/hr (0-15) H 07/14/16 04:24 Chloride 97 mEq/L (98-109) L 07/20/16 06:49 Carbon Dioxide 32 mEq/L (19-29) H 07/20/16 06:49 BUN 48 mg/dL (7-20) H 07/20/16 06:49 Creatinine 1.24 mg/dL (0.57-1.11) H 07/20/16 06:49 Est GFR ( Amer) 53 (> 60) L 07/20/16 06:49 Est GFR (Non-Af Amer) 44 (> 60) L 07/20/16 06:49 BUN/Creatinine Ratio 39 (6-26) H 07/20/16 06:49 Glucose 323 mg/dL (70-99) H 07/20/16 06:49 POC Glucose 396 (58-89) H 07/19/16 20:37 Hemoglobin A1c 7.6 % (-5.6) H 07/11/16 12:05 Calculated Osmolality 311 (280-300) H 07/20/16 06:49 Troponin I 0.18 ng/mL (0-0.03) H* 07/12/16 01:06 C-Reactive Protein 278 mg/L (Less than 5) H 07/12/16 01:02 TSH 0.072 mcIU/mL (0.350-4.840) L 07/15/16 02:58 PTH Intact 158.3 pg/ml (8.5-72.5) H 07/15/16 02:58 Urine Clarity Cloudy (Clear) A 07/13/16 21:00 Urine Protein 100 mg/dL (Neg-Trace) H 07/13/16 21:00 Urine Glucose (UA) >=1000 mg/dL (Normal) H 07/13/16 21:00 Urine Blood Moderate (Negative) H 07/13/16 21:00 Urine Microscopic WBC 3-5 per hpf (0-3) H 07/13/16 21:00 Ur Squamous Epith Cells Many per lpf (None-Few) H 07/13/16 21:00 Microalb/Creat Ratio 405 (0-30) H 07/13/16 21:00 Protein/Creatinin Ratio 1.12 mg/mg (0-0.20) H 07/13/16 21:00 Urine Total Protein 66 mg/dL (1-14) H 07/13/16 21:00 Fluid Appearance Cloudy (Clear) A 07/11/16 16:47 Vancomycin Trough 9.8 mcg/mL (10-20) L 07/13/16 10:43 CORINNE Screen DETECTED (None Detected) A 07/11/16 17:44 CORINNE Titer 1:1280 (<1:40) H 07/11/16 17:44 Myeloperoxidase Ab 44 AU/mL (0-19) H 07/11/16 17:44 ANCA IgG 1:5120 (<1:20) H 07/13/16 14:17 SS-A Ro 60 kDa Ab 71 AU/mL (0-40) H 07/13/16 16:45 Enterococcus sp PCR DETECTED (Not Detect) A 07/18/16 11:37 Peter/B-Vanco Res Genes DETECTED (Not Detect) A 07/18/16 11:37 - Microbiology Findings Microbiology Findings: Microbiology, Last 48 Hours 07/18/16 11:32 Blood Culture - Preliminary Peripheral Venipuncture Gram Positive Cocci 07/18/16 11:37 Blood Culture - Preliminary Peripheral Venipuncture Gram Positive Cocci - Clinical Findings Intake & Output: Intake & Output 07/19/16 07/20/16 07/20/16 23:59 07:59 15:59 Intake Total 340 / 340 Balance 340 / 340 Weight 85.53 kg - VTE Documentation of Mechanical Device: Intermittent pneumatic compression device Consult Discharge Plan - Plan Referrals: Con Vogt CNP [Advanced Practice Nurse] - 08/02/16 3:30 pm Aliyah Pardo CNP [Primary Care Provider] - (walk in facilities.. no need for an appointment.)
[2016-07-20] MEDS: Diltiazem CD (24hr) 180 MG CAPSULE PO SCH (08:40)
[2016-07-20] MEDS: Isosorbide MONOnitrate (24 HR) 60 MG TAB.ER.24H PO SCH (08:40)
[2016-07-20] MEDS: Insulin LISPRO 300 UNITS/3 ML VIAL SQ SCH ×7 (08:41→21:57)
[2016-07-20] MEDS: Insulin DETEMIR 100 UNIT/ML X5UNITS SQ SCH ×2 (08:41→21:56)
--- NOTE | 2016-07-20 08:44 | Rheumatology Progress Note ---
<Jluis Sanders - Last Filed: 07/20/16 08:26> Date of Encounter: 07/20/16 Time of Encounter: 08:00 Rheumatology Assess and Plan (1) Diffuse pulmonary alveolar hemorrhage Current Visit: Yes Status: Acute Patient was transitioned to 80 mg PO prednisone yesterday and continues to do well, or hasn't deteriorated. She continues to require 6 L supplemental oxygen. She had blood cultures x2 on 07/18/16 preliminarily positive for gram positive cocci with PCR positive for enterococcus and vanco-resistance. Blood cultures x2 on 07/19/16 priliminary negative. Patient found to have p-ANCA and MPO antibodies, suggesting microscopic polyangiitis, that appears to be isolated to the lungs. Continue 80 mg prednisone by mouth With patient VRE bacteremia, will wait on Rituximab Will setup for patient to start Rituximab infusion immediately upon discharge from the hospital If patient condition worsens, will consider other medications for her vasculitis (2) P-ANCA and MPO antibodies positive Current Visit: Yes Status: Acute Elevation in patient in p-ANCA and MPO antibodies are suggestive of microscopic polyangitis. Plan as above (3) Renal insufficiency Current Visit: Yes Status: Acute Patient's serum creatinine has been slowly and steadily improving. Patient appeared to have significant proteinuria as seen on UA and protein/creatinine ratio. She does have history of atrial fibrillation and uncontrolled diabetes mellitus, but patient is p-ANCA positive with anti-MPO antibodies present, but no crescents seen on preliminary renal biopsy. Vasculitis likely not affecting patient kidneys Anti-GBM antibody is negative Further plan as above Nephrology is following and appreciate recommendations for continued management/ care Continue to monitor renal function with daily chemistry Avoid nephrotoxic agents if possible (4) Proteinuria Current Visit: Yes Status: Chronic As above Qualifiers: Proteinuria type: isolated Isolated proteinuria type: with unspecified morphologic lesion Qualified Code(s): N06.9 - Isolated proteinuria with unspecified morphologic lesion (5) Diabetes mellitus type 2, uncontrolled Current Visit: Yes Status: Chronic Patient blood sugars will continue to require close monitoring given her continued need of glucocorticoids. Qualifiers: Diabetes mellitus complication status: with neurologic complications Diabetes mellitus complication detail: with unspecified neuropathy Diabetes mellitus middle or intermediate school principal insulin use: with care home use Qualified Code(s): E11.40 - Type 2 diabetes mellitus with diabetic neuropathy, unspecified; E11.65 - Type 2 diabetes mellitus with hyperglycemia; Z79.4 - terminal operator (current) use of insulin - Subjective Interval history: Patient reports feeling about the same today as she did yesterday, though she reports having some cramps in her calfs. She reports that she is continuing to cough and that it continues to be productive, though she states that she is producing more black substance. She reports that she has some pain with movement. Review of systems: Gen.: Denies fever/chills, denies weakness HEENT: Denies sore throat, Resp: Mild shortness of breath, hemoptysis (as per HPI), mild cough with deep breathing CV: Reports mild chest pain from congestion and blood pressure, denies palpitations, denies tachycardia GI: Appetite good, no N/V, reports having BM Skin: Denies rashes, denies easy bruising, denies swelling" Exam Vital Signs, Last 4 Hours Temp Pulse Resp BP Pulse Ox 07/20/16 08:24 97.8 F 71 16 161/88 99 07/20/16 05:31 98.7 F 59 16 168/74 90 Exam: General: Cooperative, pleasant, no acute distress, alert and oriented 3, answers questions appropriately, on 6 L supplemental oxygen HEENT: Normocephalic, atraumatic, oral mucosa moist Respiratory: No accessory muscle usage, slight Rales auscultated R>L Cardiovascular: Regular rate and rhythm, S1 and S2 present, no murmurs/rubs/ gallops/clicks appreciated GI/abdominal: Nondistended, nontender, soft, normal bowel sounds, no peritoneal signs Extremities: No calf tenderness to palpation, noncyanotic, 1+ pedal edema bilaterally, warm, lower extremity pulses palpable and symmetrical Neurological: Alert and oriented 3, no facial droop, no focal deficits Skin: Dry, intact, normal color Objective Data 07/20/16 06:49 07/20/16 06:49 Immunology Rheumatoid Factor < 15 IU/mL (0-29) 07/11/16 17:44 Cycl Citrul Peptide IgG 12 Units (0-19) 07/11/16 17:44 CORINNE Screen DETECTED (None Detected) A 07/11/16 17:44 CORINNE Titer 1:1280 (<1:40) H 07/11/16 17:44 Myeloperoxidase Ab 44 AU/mL (0-19) H 07/11/16 17:44 ANCA IgG 1:5120 (<1:20) H 07/13/16 14:17 SS-A/Ro 52 kDa Ab 2 AU/mL (0-40) 07/13/16 16:45 SS-A Ro 60 kDa Ab 71 AU/mL (0-40) H 07/13/16 16:45 SS-B/La Antibody 0 AU/mL (0-40) 07/13/16 16:45 Sm (Mcdowell) IgG Ab, Quant 0 AU/mL (0-40) 07/13/16 16:45 Scl-70 IgG Ab 0 AU/mL (0-40) 07/11/16 17:44 Anti-U1-SUPERVISOR KEYMODULE ASSEMBLY IgG, Quant 0 AU/mL (0-40) 07/13/16 16:45 Glomerular Base Mem IgG 0 AU/mL (0-19) 07/13/16 14:17 Glomer Base Mem IgG IFA NEGATIVE (Negative) 07/13/16 14:17 Serine Protease 3 Ab 5 AU/mL (0-19) 07/11/16 17:44 Complement C3 138 mg/dL (88-201) 07/11/16 17:44 Complement C4 22 mg/dL (10-40) 07/11/16 17:44 Blood Cultures x2 on 07/18/16 show Gram positive cocci, PCR + for enterococcus and vanco resistance Blood Cultures x2 on 07/19/16 negative - VTE Documentation of Mechanical Device: Intermittent pneumatic compression device Consult Discharge Plan - Plan Referrals: Con Vogt CNP [Advanced Practice Nurse] - 08/02/16 3:30 pm Aliyah Prado CNP [Primary Care Provider] - (walk in facilities.. no need for an appointment.) <Amrit Cai - Last Filed: 07/20/16 16:44> Date of Encounter: 07/20/16 Rheumatology Assess and Plan (1) Diffuse pulmonary alveolar hemorrhage Current Visit: Yes Status: Acute (2) Renal insufficiency Current Visit: Yes Status: Acute (3) CORINNE positive Current Visit: Yes Status: Acute (4) Proteinuria Current Visit: Yes Status: Chronic Qualifiers: Proteinuria type: isolated Isolated proteinuria type: with unspecified morphologic lesion Qualified Code(s): N06.9 - Isolated proteinuria with unspecified morphologic lesion (5) Diabetes mellitus type 2, uncontrolled Current Visit: Yes Status: Chronic Qualifiers: Diabetes mellitus complication status: with neurologic complications Diabetes mellitus complication detail: with unspecified neuropathy Diabetes mellitus middle or intermediate school principal insulin use: with middle or intermediate school principal use Qualified Code(s): E11.40 - Type 2 diabetes mellitus with diabetic neuropathy, unspecified; E11.65 - Type 2 diabetes mellitus with hyperglycemia; Z79.4 - terminal operator (current) use of insulin Exam Vital Signs, Last 4 Hours Temp Pulse Resp BP Pulse Ox 07/20/16 15:48 97.7 F 81 18 184/72 95 Objective Data 07/20/16 06:49 07/20/16 06:49 Immunology Rheumatoid Factor < 15 IU/mL (0-29) 07/11/16 17:44 Cycl Citrul Peptide IgG 12 Units (0-19) 07/11/16 17:44 CORINNE Screen DETECTED (None Detected) A 07/11/16 17:44 CORINNE Titer 1:1280 (<1:40) H 07/11/16 17:44 Myeloperoxidase Ab 44 AU/mL (0-19) H 07/11/16 17:44 ANCA IgG 1:5120 (<1:20) H 07/13/16 14:17 SS-A/Ro 52 kDa Ab 2 AU/mL (0-40) 07/13/16 16:45 SS-A Ro 60 kDa Ab 71 AU/mL (0-40) H 07/13/16 16:45 SS-B/La Antibody 0 AU/mL (0-40) 07/13/16 16:45 Sm (Mcdowell) IgG Ab, Quant 0 AU/mL (0-40) 07/13/16 16:45 Scl-70 IgG Ab 0 AU/mL (0-40) 07/11/16 17:44 Anti-U1-SUPERVISOR KEYMODULE ASSEMBLY IgG, Quant 0 AU/mL (0-40) 07/13/16 16:45 Glomerular Base Mem IgG 0 AU/mL (0-19) 07/13/16 14:17 Glomer Base Mem IgG IFA NEGATIVE (Negative) 07/13/16 14:17 Serine Protease 3 Ab 5 AU/mL (0-19) 07/11/16 17:44 Complement C3 138 mg/dL (88-201) 07/11/16 17:44 Complement C4 22 mg/dL (10-40) 07/11/16 17:44 All other labs normal. - Attending Attestation I examined this patient and my medical decision making was reviewed with the resident physician. I agree with the documented findings, disposition and treatment as described with these exceptions. Patient is clinically stable; she is coughing up dark clots and no fresh blood. Oxygen requirements stable, no worsening shortness of breath. Renal function stable. Cultures with VRE, repeat negative. I discussed with ID; on antibiotics now and continuing to follow I still have a high index of suspicion for MPA; previous CT of lungs show nodules, strong positive ANCA in setting of pulmonary hemorrhage/ILD. Quantiferon gold indeterminate; will repeat. Patient is clinically stable though has many comorbidities and potential for complications in this complex case. I have discussed case with pulmonary medicine as well. Continue prednisone 80 mg. Hold off on more definitive immunosuppression now till patient is more stable and infectious risks is lessened. I will be away till Sunday Will continue though following
[2016-07-20] MEDS ORDERED: Furosemide 20 MG TABLET PO SCH (09:00)
[2016-07-20] MEDS: predniSONE 20 MG TABLET PO SCH (10:37)
[2016-07-20 13:42] LABS: QuantiFERON NIL 0.04 IU/mL; QuantiFERON-TB Gold In-Tube INDETERMINATE (Negative)
--- NOTE | 2016-07-20 14:29 | Infectious Disease Progress No ---
Date of Encounter: 07/20/16 Time of Encounter: 14:24 - Assessment and Plan (1) Acute on chronic respiratory failure with hypoxia Current Visit: Yes Status: Acute Secondary to alveolar hemorrhage. concern for pnuemonia as well per pulmonary note s/p bronchoscopy; bonchoscopy report reviewed. high index of suspicion for vasculitis. d/w with rheumatology patient is on high dose steroids. hemoptysis resolved continue to observe (2) Diffuse pulmonary alveolar hemorrhage Current Visit: Yes Status: Acute (3) Gram-positive bacteremia Current Visit: Yes Status: Acute now patient is having VRE 2/2 sets from 07/18; no obvious source. patient again feeling great with no SIRS criteria started on zyvox last night I would idealy change it to daptomycin but if we are concerned that VRE is due to "pneumonia" then daptomycin will not work. repeat cultures have been negative so far. will await results. if they continue to be negative, I would consider stopping antibiotics all together since likely it's a contaminant, but we'll see. (4) Atrial fibrillation with RVR Current Visit: Yes Status: Acute (5) Elevated troponin Current Visit: Yes Status: Acute (6) Hemoptysis Current Visit: Yes Status: Acute (7) CORINNE positive Current Visit: Yes Status: Acute - Subjective Interval history: patient see and examined doing well clinically. states she is a little tired. no cough, no hemoptysis no fevers no chills no rigors. had a bm yesterday Infect Dis PN-Objective Data - Labs CBC & Chem 7: 07/20/16 06:49 07/20/16 06:49 Labs: Laboratory Results - last 24 hr 07/14/16 07/18/16 07/18/16 13:05 07:21 11:06 WBC RBC Hgb Hct MCV MCH MCHC RDW Plt Count MPV Immature Gran % Seg Neutrophils % Lymphocytes % Monocytes % Eosinophils % Basophils % Neutrophils # Lymphocytes # Monocytes # Eosinophils # Basophils # Nucleated RBCs/100 WBC Sodium Potassium Chloride Carbon Dioxide BUN Creatinine Est GFR ( Amer) Est GFR (Non-Af Amer) BUN/Creatinine Ratio Glucose POC Glucose 219 H 267 H Calculated Osmolality Calcium TB (QFT) Gold In Tube INDETERMINATE TB Test (QFT) Nil 0.04 TB Test Mitogen - Nil 0.03 07/18/16 07/18/16 07/19/16 16:34 20:13 16:27 WBC RBC Hgb Hct MCV MCH MCHC RDW Plt Count MPV Immature Gran % Seg Neutrophils % Lymphocytes % Monocytes % Eosinophils % Basophils % Neutrophils # Lymphocytes # Monocytes # Eosinophils # Basophils # Nucleated RBCs/100 WBC Sodium Potassium Chloride Carbon Dioxide BUN Creatinine Est GFR ( Amer) Est GFR (Non-Af Amer) BUN/Creatinine Ratio Glucose POC Glucose 293 H 354 H 248 H Calculated Osmolality Calcium TB (QFT) Gold In Tube TB Test (QFT) Nil TB Test Mitogen - Nil 07/19/16 07/19/16 07/20/16 20:35 20:37 06:49 WBC 17.6 H RBC 3.70 L Hgb 10.0 L Hct 30.9 L MCV 83.5 MCH 27.0 L MCHC 32.4 RDW 16.9 H Plt Count 294 MPV 9.9 Immature Gran % 1.8 Seg Neutrophils % 88.6 Lymphocytes % 4.9 Monocytes % 4.6 Eosinophils % 0.0 Basophils % 0.1 Neutrophils # 15.6 H Lymphocytes # 0.9 Monocytes # 0.8 Eosinophils # 0.0 Basophils # 0.0 Nucleated RBCs/100 WBC 0.2 H Sodium Potassium Chloride Carbon Dioxide BUN Creatinine Est GFR ( Amer) Est GFR (Non-Af Amer) BUN/Creatinine Ratio Glucose POC Glucose 406 H* 396 H Calculated Osmolality Calcium TB (QFT) Gold In Tube TB Test (QFT) Nil TB Test Mitogen - Nil 07/20/16 06:49 WBC RBC Hgb Hct MCV MCH MCHC RDW Plt Count MPV Immature Gran % Seg Neutrophils % Lymphocytes % Monocytes % Eosinophils % Basophils % Neutrophils # Lymphocytes # Monocytes # Eosinophils # Basophils # Nucleated RBCs/100 WBC Sodium 138 Potassium 3.8 D Chloride 97 L Carbon Dioxide 32 H BUN 48 H Creatinine 1.24 H Est GFR ( Amer) 53 L Est GFR (Non-Af Amer) 44 L BUN/Creatinine Ratio 39 H Glucose 323 H POC Glucose Calculated Osmolality 311 H Calcium 9.0 TB (QFT) Gold In Tube TB Test (QFT) Nil TB Test Mitogen - Nil Cultures: Cultures 07/19/16 12:31 Blood Culture - Preliminary Peripheral Venipuncture No growth. 07/19/16 12:24 Blood Culture - Preliminary Peripheral Venipuncture No growth. 07/18/16 11:32 Blood Culture - Preliminary Peripheral Venipuncture Gram Positive Cocci 07/18/16 11:37 Blood Culture - Preliminary Peripheral Venipuncture Gram Positive Cocci 07/11/16 09:07 Blood Culture - Final Peripheral Venipuncture No growth. 07/13/16 12:30 Sputum Culture - Final Sputum 07/11/16 16:47 Respiratory Culture - Final Right Lower Lobe Lung Normal upper respiratory tract juan m. No apparent pathogens isolated. 07/11/16 16:47 Gram Stain - Final Right Lower Lobe Lung 07/11/16 16:47 Acid Fast Stain - Final Right Lower Lobe Lung 07/12/16 23:12 Legionella Antigen - Final Urine,Clean Catch Streptococcus pneumoniae Antigen (M - Final Serology 07/18/16 07/17/16 07/14/16 Range/Units 11:37 10:31 13:05 Urine Color (Yellow) Urine Clarity (Clear) Urine pH (5.0-8.0) pH Units Ur Specific [place] (1.010-1.025) Urine Protein (Neg-Trace) mg/dL Urine Glucose (UA) (Normal) mg/dL Urine Ketones (Negative) mg/dL Urine Blood (Negative) Urine Nitrite (Negative) Urine Bilirubin (Negative) Urine Urobilinogen (Normal) mg/dL Ur Leukocyte Esterase (Negative) Urine Microscopic RBC (0-3) per hpf Urine Microscopic WBC (0-3) per hpf Ur Squamous Epith Cells (None-Few) per lpf Urine Bacteria (None-Few) per hpf Hyaline Casts (None-Few) per lpf Urine Yeast Ur Culture Indicated? (NO) Urine Creatinine mg/dL Urine Microalbumin mg/L Microalb/Creat Ratio (0-30) Protein/Creatinin Ratio (0-0.20) mg/mg Urine Total Protein (1-14) mg/dL Urine Hemosiderin (Negative) Fluid Source Fluid Volume mL Fluid Appearance (Clear) Fluid RBC Fld Tot Nucleated Cell Fluid Seg Neutrophil % % Fluid Lymphocytes % % Fluid Monocytes % % Fluid Other Cells % % A. baumannii (PCR) Not Detected (Not Detect) Jenna albicans (PCR) Not Detected (Not Detect) C. glabrata (PCR) Not Detected (Not Detect) C. krusei (PCR) Not Detected (Not Detect) C. parapsilosis (PCR) Not Detected (Not Detect) C. tropicalis (PCR) Not Detected (Not Detect) Enterobacteriac sp PCR Not Detected (Not Detect) E. cloacae complex PCR Not Detected (Not Detect) Enterococcus sp PCR DETECTED A (Not Detect) E. coli (PCR) Not Detected (Not Detect) H. influenzae (PCR) Not Detected (Not Detect) Hepatitis A IgM Ab (Nonreactive) Hep Bs Antigen (Nonreactive) Hep B Core IgM Ab (Nonreactive) Hepatitis C Ab Screen (Nonreactive) HIV Ag/Ab Combo Qual Nonreactive (Nonreactive) Klebsiella oxytoca PCR Not Detected (Not Detect) Klebsiella pneumoniae Not Detected (Not Detect) List. monocytogenes PCR Not Detected (Not Detect) N. meningitidis (PCR) Not Detected (Not Detect) Proteus species (PCR) Not Detected (Not Detect) Serratia marcescens PCR Not Detected (Not Detect) Staphylococcus sp PCR Not Detected (Not Detect) Staph aureus (PCR) Not Detected (Not Detect) mecA-Methicil Res Gene Not Detected (Not Detect) Streptococcus sp PCR Not Detected (Not Detect) Group A Strep DNA Not Detected (Not Detect) Group B Strep (PCR) Not Detected (Not Detect) Strep pneumoniae (PCR) Not Detected (Not Detect) P. aeruginosa (PCR) Not Detected (Not Detect) TB (QFT) Gold In Tube INDETERMINATE (Negative) TB Test (QFT) Nil 0.04 IU/mL TB Test Mitogen - Nil 0.03 IU/mL Peter/B-Vanco Res Genes DETECTED A (Not Detect) KPC (blaKPC) Detect PCR Not Detected (Not Detect) 07/13/16 07/13/16 07/13/16 Range/Units 21:00 21:00 21:00 Urine Color (Yellow) Urine Clarity (Clear) Urine pH (5.0-8.0) pH Units Ur Specific [place] (1.010-1.025) Urine Protein (Neg-Trace) mg/dL Urine Glucose (UA) (Normal) mg/dL Urine Ketones (Negative) mg/dL Urine Blood (Negative) Urine Nitrite (Negative) Urine Bilirubin (Negative) Urine Urobilinogen (Normal) mg/dL Ur Leukocyte Esterase (Negative) Urine Microscopic RBC (0-3) per hpf Urine Microscopic WBC (0-3) per hpf Ur Squamous Epith Cells (None-Few) per lpf Urine Bacteria (None-Few) per hpf Hyaline Casts (None-Few) per lpf Urine Yeast Ur Culture Indicated? (NO) Urine Creatinine 59 58 mg/dL Urine Microalbumin 235 mg/L Microalb/Creat Ratio 405 H (0-30) Protein/Creatinin Ratio 1.12 H (0-0.20) mg/mg Urine Total Protein 66 H (1-14) mg/dL Urine Hemosiderin NEGATIVE (Negative) Fluid Source Fluid Volume mL Fluid Appearance (Clear) Fluid RBC Fld Tot Nucleated Cell Fluid Seg Neutrophil % % Fluid Lymphocytes % % Fluid Monocytes % % Fluid Other Cells % % A. baumannii (PCR) (Not Detect) Jenna albicans (PCR) (Not Detect) C. glabrata (PCR) (Not Detect) C. krusei (PCR) (Not Detect) C. parapsilosis (PCR) (Not Detect) C. tropicalis (PCR) (Not Detect) Enterobacteriac sp PCR (Not Detect) E. cloacae complex PCR (Not Detect) Enterococcus sp PCR (Not Detect) E. coli (PCR) (Not Detect) H. influenzae (PCR) (Not Detect) Hepatitis A IgM Ab (Nonreactive) Hep Bs Antigen (Nonreactive) Hep B Core IgM Ab (Nonreactive) Hepatitis C Ab Screen (Nonreactive) HIV Ag/Ab Combo Qual (Nonreactive) Klebsiella oxytoca PCR (Not Detect) Klebsiella pneumoniae (Not Detect) List. monocytogenes PCR (Not Detect) N. meningitidis (PCR) (Not Detect) Proteus species (PCR) (Not Detect) Serratia marcescens PCR (Not Detect) Staphylococcus sp PCR (Not Detect) Staph aureus (PCR) (Not Detect) mecA-Methicil Res Gene (Not Detect) Streptococcus sp PCR (Not Detect) Group A Strep DNA (Not Detect) Group B Strep (PCR) (Not Detect) Strep pneumoniae (PCR) (Not Detect) P. aeruginosa (PCR) (Not Detect) TB (QFT) Gold In Tube (Negative) TB Test (QFT) Nil IU/mL TB Test Mitogen - Nil IU/mL Peter/B-Vanco Res Genes (Not Detect) KPC (blaKPC) Detect PCR (Not Detect) 07/13/16 07/13/16 07/11/16 Range/Units 21:00 16:45 16:47 Urine Color Yellow (Yellow) Urine Clarity Cloudy A (Clear) Urine pH 6.0 (5.0-8.0) pH Units Ur Specific [place] 1.025 (1.010-1.025) Urine Protein 100 H (Neg-Trace) mg/dL Urine Glucose (UA) >=1000 H (Normal) mg/dL Urine Ketones Negative (Negative) mg/dL Urine Blood Moderate H (Negative) Urine Nitrite Negative (Negative) Urine Bilirubin Negative (Negative) Urine Urobilinogen Normal (Normal) mg/dL Ur Leukocyte Esterase Negative (Negative) Urine Microscopic RBC 0-3 (0-3) per hpf Urine Microscopic WBC 3-5 H (0-3) per hpf Ur Squamous Epith Cells Many H (None-Few) per lpf Urine Bacteria None Seen (None-Few) per hpf Hyaline Casts Few (None-Few) per lpf Urine Yeast Test Not Performed Ur Culture Indicated? NO (NO) Urine Creatinine mg/dL Urine Microalbumin mg/L Microalb/Creat Ratio (0-30) Protein/Creatinin Ratio (0-0.20) mg/mg Urine Total Protein (1-14) mg/dL Urine Hemosiderin (Negative) Fluid Source RLL BAL Fluid Volume 22 mL Fluid Appearance Cloudy A (Clear) Fluid RBC TNP Fld Tot Nucleated Cell TNP Fluid Seg Neutrophil % 27.0 % Fluid Lymphocytes % 50.0 % Fluid Monocytes % 2.0 % Fluid Other Cells % 21.0 % A. baumannii (PCR) (Not Detect) Jenna albicans (PCR) (Not Detect) C. glabrata (PCR) (Not Detect) C. krusei (PCR) (Not Detect) C. parapsilosis (PCR) (Not Detect) C. tropicalis (PCR) (Not Detect) Enterobacteriac sp PCR (Not Detect) E. cloacae complex PCR (Not Detect) Enterococcus sp PCR (Not Detect) E. coli (PCR) (Not Detect) H. influenzae (PCR) (Not Detect) Hepatitis A IgM Ab Nonreactive (Nonreactive) Hep Bs Antigen Nonreactive (Nonreactive) Hep B Core IgM Ab Nonreactive (Nonreactive) Hepatitis C Ab Screen Nonreactive (Nonreactive) HIV Ag/Ab Combo Qual (Nonreactive) Klebsiella oxytoca PCR (Not Detect) Klebsiella pneumoniae (Not Detect) List. monocytogenes PCR (Not Detect) N. meningitidis (PCR) (Not Detect) Proteus species (PCR) (Not Detect) Serratia marcescens PCR (Not Detect) Staphylococcus sp PCR (Not Detect) Staph aureus (PCR) (Not Detect) mecA-Methicil Res Gene (Not Detect) Streptococcus sp PCR (Not Detect) Group A Strep DNA (Not Detect) Group B Strep (PCR) (Not Detect) Strep pneumoniae (PCR) (Not Detect) P. aeruginosa (PCR) (Not Detect) TB (QFT) Gold In Tube (Negative) TB Test (QFT) Nil IU/mL TB Test Mitogen - Nil IU/mL Peter/B-Vanco Res Genes (Not Detect) KPC (blaKPC) Detect PCR (Not Detect) Exam - Constitutional Vitals: Temp Pulse Resp BP Pulse Ox 97.5 F L 76 17 174/78 97 07/20/16 10:39 07/20/16 10:39 07/20/16 10:39 07/20/16 10:39 07/20/16 10:39 General appearance: no acute distress, no febrile - Head Head exam: Present: atraumatic, normocephalic - Neck Neck exam: Present: full ROM - Respiratory Respiratory exam: Present: CTAB - Cardiovascular Cardiovascular exam: Present: RRR, +S1, +S2 - GI/Abdominal GI/Abdominal exam: Present: soft, tenderness. Absent: normal bowel sounds - Extremities Exam Extremities exam: Present: full ROM, normal inspection - VTE Documentation of Mechanical Device: Intermittent pneumatic compression device Consult Discharge Plan - Plan Referrals: Con Vogt CNP [Advanced Practice Nurse] - 08/02/16 3:30 pm Aliyah Prado CNP [Primary Care Provider] - (walk in facilities.. no need for an appointment.)
[2016-07-20] MEDS: cloNIDine HCl 0.1 MG TABLET PO SCH ×2 (15:18→21:59)
--- NOTE | 2016-07-20 16:34 | Internal Med Progress Note ---
Date of Encounter: 07/20/16 Time of Encounter: 11:00 - Assessment and plan (1) Diffuse pulmonary alveolar hemorrhage Current Visit: Yes Status: Acute Assessment and plan: Myeloperoxidase positive, methylprednisolone 125 mg every 6 hours pulse completed, switched to prednisone as per rheum input. 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 We have ID on board, at this point we have 2 sets of blood cultures showing gram positive cocci, will follow recommendations from our infectious disease team. Follow repeat set of cultures. Continue with Levemir, will increase the dose and give iv push as needed. We will continue monitoring fingerstick. Leukocytosis, persistent, likely due to steroids, positive blood culture, VRE, a consultation with ID was requested for further recommendations. . (2) Diabetes mellitus type 2, uncontrolled Current Visit: Yes Status: Chronic Assessment and plan: due to systemic steroids, continue insulin. continue monitring. 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 no AC due to hemoptysis. Qualifiers: Atrial fibrillation type: chronic Qualified Code(s): I48.2 - Chronic atrial fibrillation - Subjective Interval history: no fever, states that feels better, still on oxygen supplementation with nasal cannula, speaking full sentences. hemoptysis improving. - Constitutional Vitals: Temp Pulse Resp BP Pulse Ox 97.7 F 81 18 184/72 95 07/20/16 15:48 07/20/16 15:48 07/20/16 15:48 07/20/16 15:48 07/20/16 15:48 General appearance: Present: mild distress, A&O X 3 Exam: not in distress - Head Head exam: Present: atraumatic, normocephalic - Eye Eye exam: Present: PERRL, conjuntiva pink, sclera anicteric Pupils: Present: PERRL - Neck Neck exam general surgery: Present: supple, trachea midline. Absent: lymphadenopathy - Respiratory Respiratory exam: Present: respiratory distress. Absent: accessory muscle use, rales, rhonchi, wheezes - Cardiovascular Cardiovascular exam: Present: RRR, +S1, +S2. Absent: diastolic murmur, gallop, rubs, systolic murmur - GI/Abdominal GI/Abdominal exam: Present: normal bowel sounds, soft, no peritoneal signs. Absent: distended, tenderness - Extremities Exam Extremities exam: Present: warm, radial pulses palpable and symetrical. Absent : calf tenderness, cyanotic, pedal edema - Neurological Exam Neurological exam: Present: CN II-XII intact, oriented X3, no focal deficits. Absent: pronater drift, facial droop, speech deficit - Skin Skin exam: Present: dry, intact Internal Medicine: Result - Labs CBC & Chem 7: 07/20/16 06:49 07/20/16 06:49 Labs: Short CBC 07/20/16 Range/Units 06:49 WBC 17.6 H (4.3-11.1) K/mcL Hgb 10.0 L (11.5-15.4) g/dL Hct 30.9 L (35.3-44.9) % Plt Count 294 (140-400) K/mcL Neutrophils # 15.6 H (1.6-8.9) K/mcL BMP 07/20/16 06:49 Sodium 138 Potassium 3.8 D Chloride 97 L Carbon Dioxide 32 H BUN 48 H Creatinine 1.24 H Glucose 323 H Calcium 9.0 - ABG Interpretation ABG results: PT/INR, D-dimer PT 12.0 Seconds (9.4-12.1) 07/17/16 04:05 - Impressions Impressions Chest X-Ray 07/20/16 08:23 IMPRESSION: Persistent but improving multifocal bilateral airspace opacities most suggestive of an atypical infectious process. D/ / 07/20/2016 14:48:46 Kenneth Hill MD / edgar Interpreting Provider: Kenneth Hill MD - VTE Documentation of Mechanical Device: Intermittent pneumatic compression device Consult Discharge Plan - Plan Referrals: Con Vogt CNP [Advanced Practice Nurse] - 08/02/16 3:30 pm Aliyah Prado CNP [Primary Care Provider] - (walk in facilities.. no need for an appointment.)
[2016-07-21] MEDS: *HR* HYDROcodone/Acet 5/325 mg TABLET PO PRN ×3 (00:29→17:28)
[2016-07-21 03:51] LABS: Basophils % 0.1 %; Eosinophils % 0.1 %; Hematocrit 30.3 % (35.3-44.9); Hemoglobin 9.7 g/dL (11.5-15.4); Immature Granulocytes % 3.6 % (0-4); Lymphocytes # 1.7 K/mcL (0.6-4.6); Lymphocytes % 8.9 %; Mean Corpuscular Hemoglobin 27.3 pg (28.0-33.3); Mean Corpuscular Volume 85.4 fL (83.0-100.0); Mean Platelet Volume 9.8 fL (9.4-12.4); Monocytes # 1.2 K/mcL (0.0-1.3); Monocytes % 6.5 %; Neutrophils # 15.2 K/mcL (1.6-8.9); Nucleated Red Blood Cells 0.2 /100 WBC (0); Platelet Count 267 K/mcL (140-400); Red Blood Count 3.55 M/mcL (3.82-4.97); Red Cell Distribution Width 16.8 % (11.5-14.5); Segmented Neutrophils % 80.8 %
[2016-07-21 04:08] LABS: BUN/Creatinine Ratio 41 (6-26); Blood Urea Nitrogen 45 mg/dL (7-20); Calcium 8.8 mg/dL (8.6-10.8); Carbon Dioxide 29 mEq/L (19-29); Chloride 98 mEq/L (98-109); Glucose 171 mg/dL (70-99); Osmolality,Calculated 300 (280-300); Sodium 137 mEq/L (136-145); eGFR For African Americans > 60 (> 60); eGFR For Non-African Americans 51 (> 60)
[2016-07-21 04:09] LABS: Albumin 2.8 g/dL (3.5-5.0); Albumin/Globulin Ratio 0.9 (1.1-2.2); Bilirubin,Direct 0.7 mg/dL (0.0-0.5); Bilirubin,Indirect 0.7 mg/dL (0.0-1.2); Bilirubin,Total 1.4 mg/dL (0.2-1.2); Globulin 3.1 g/dL (2.4-3.5); Total Protein 5.9 g/dL (6.0-8.3)
--- NOTE | 2016-07-21 06:52 | Nephrology Progress Note ---
Date of Encounter: 07/21/16 Time of Encounter: 06:52 - Assessment and Plan (1) Hypertension Current Visit: Yes Status: Chronic Bp 160-184/69-79, rate 68-90 irregular. Uncontrolled, with additional insult of active vasculitis Continue to monitor bp Goal bp <150/90 Start clonidine 0.1 mg tid, continue with clonidine patch. Plan to discontinue clonidine po tomorrow due to full efficacy of patch after 72 hours. Continue Metoprolol 50mg bid. Caution advised due to possible bradycardia. Continue monitoring. Will increase lasix to 40mg today, from 20mg yesterday due to increasing edema and return to basline kidney function Recheck BMP tomorrow, if Cr stable will start low dose ARB Discontinued hydralazine. Continue with renal protective startegy, avoid nephrotoxins. Will continue to follow the patient through tomorrow. Continue to monitor patient's blood pressure. Patient to have BMP within 1 week of discharge to continue following kidney function. Follow up appointment with Jennifer [facility] Kidney Specialist within 3-6 weeks. Qualifiers: Hypertension type: essential hypertension Qualified Code(s): I10 - Essential (primary) hypertension (2) Proteinuria Current Visit: Yes Status: Chronic Continue to monitor and improve bp, goal <150/90. CORINNE positive, ANCA positive, MPO positive, GBM negative. 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 Preliminary read from Pathologist from renal biopsy. No confirmation of ANCA associated vasculitis, no crescents. Only chronic diabetic and hypertensive changes. Mentioned possible drug induced lupus from Hydralazine. Also mentioned the possibility of false positive ANCA and CORINNE from hydralazine. Discontinued hydralazine. 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 Pathologist had queried about possible infection, now confirmed patient has gram positive bacteremia, though initial blood cultures were negative. High dose steroids x3 days completed. Defer additional immunological management to Rheumatology and Pulmonology as this appears not to be affecting directly the kidneys based on renal biopsy results. Rheumatology plan to continue 80mg oral prednisone qd. Continue with renal protective strategy, avoid nephrotoxic agents. No urgent dialysis at this time. Continue following labs. Qualifiers: Proteinuria type: isolated Isolated proteinuria type: with unspecified morphologic lesion Qualified Code(s): N06.9 - Isolated proteinuria with unspecified morphologic lesion (3) Gram-positive cocci bacteremia Current Visit: Yes Status: Acute Blood cultures x2 drawn 07/17/16 growing gram positive cocci. Enterococcus with vancomycin resistance. Infectious Disease following patient. Initially received 1 dose 500mg Daptomycin. Currently on Linezolid 60mg q12h. No adjustment for renal impairment Continue per Hospitalist plan Avoid nephrotoxic agents, continue with renal protective strategy. (4) CORINNE positive Current Visit: Yes Status: Acute CORINNE titer 1:1280 (previously negative in 2015) Rheumatology on board. (5) P-ANCA and MPO antibodies positive Current Visit: Yes Status: Acute ANCA positive 1:5120 SS-A/Ri 60kDa Ab positive at 71, MPO Ab positive at 44. Rheumatology on board. Quantiferon Gold TB received, pending results. HIV negative. (6) Chronic kidney disease, stage 3 Current Visit: Yes Status: Chronic Patient with known history of CKD stage III. Function continues improving, currently at baseline BUN 45, Cr 1.10, GFR 51 Continue to monitor I&O Gentle fluid hydration Continue monitoring labs Continue with renal protective strategy, avoid nephrotoxic agents. (7) Hematuria Current Visit: Yes Status: Acute Hematuria noted on this hospital visit UA, change from prior Urine studies in 2015 which were negative for blood. Continue per plan in assessment above. (8) Hypokalemia Current Visit: Yes Status: Resolved Potassium at 4.0 this morning from 3.8 yesterday. May have been secondary to potassium loss from lasix. May consider potassium sparing diuretic such as spironolactone if continues to worsen. Continue with 10mEq bid Continue following labs. (9) Diabetes mellitus type 2, uncontrolled Current Visit: Yes Status: Chronic Known history of type II diabetes uncontrolled on group home insulin, receiving high dose steroids. Glucose 171 Continue monitoring. Continue per Hospitalist plan. Diet: Diabetic, Cardiac, Renal. Qualifiers: Diabetes mellitus complication status: with neurologic complications Diabetes mellitus complication detail: with unspecified neuropathy Diabetes mellitus group home insulin use: with group home use Qualified Code(s): E11.40 - Type 2 diabetes mellitus with diabetic neuropathy, unspecified; E11.65 - Type 2 diabetes mellitus with hyperglycemia; Z79.4 - [facility] (current) use of insulin (10) Diffuse pulmonary alveolar hemorrhage Current Visit: Yes Status: Acute Preliminary read of renal biopsy revealed no crescents or ANCA associate vasculitis findings. 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 Incentive spirometry, patient still requiring high flow oxygen. May require social work to set up home oxygen as needed. Continue per plan of Hospitalist. (11) Anemia Current Visit: Yes Status: Acute Patient with known history of anemia. Normocytic anemia upon review of labs. Hb 9.3 on arrival to [facility]. Hb at 9.7 this morning. Continue to monitor labs Qualifiers: Anemia type: unspecified type Qualified Code(s): D64.9 - Anemia, unspecified (12) Hypothyroid Current Visit: Yes Status: Chronic History of hypothyroidism s/p thyroidectomy. TSH low at 0.072 PTH high 158.3 Qualifiers: Hypothyroidism type: acquired Qualified Code(s): E03.9 - Hypothyroidism, unspecified Subjective Principal diagnosis: hemoptysis Interval history: Patient reports having significant bilateral calf pain overnight improved mildly with pain medication and improved with dangling legs over the edge of the bed. Patient also reports worsening of swelling overnight. Continues to reports some mild dyspnea, has been on 5L high flow cannula overnight no bipap. Continues coughing dark black clot-like material, about the same amount as yesterday. Chest tightness from feeling like she's not catching a deep breath improving with incentive spirometry. Patient reports normal urine, no dysuria, no blood. Patient denies fevers, chills, sweats, changes in bowels or bladder, hematuria, dysuria, weakness, or loss of sensation. Bp 160-184/69-79, rate 68-90 overnight. Cr down to 1.10 from 1.24 yesterday. Objective - Vital Signs Vital signs: Vital Signs Temp Pulse Resp BP Pulse Ox 07/21/16 04:25 97.6 F 68 16 160/79 98 07/20/16 23:32 98.1 F 88 16 176/69 97 07/20/16 23:16 98 07/20/16 19:43 98.4 F 90 18 182/73 94 07/20/16 15:48 97.7 F 81 18 184/72 95 07/20/16 10:39 97.5 F L 76 17 174/78 97 07/20/16 08:24 97.8 F 71 16 161/88 99 Intake and Output 07/20/16 07/20/16 07/21/16 15:59 23:59 07:59 Intake Total 900 / 900 300 / 300 Output Total 0 / 0 600 / 600 650 / 650 Balance 900 / 900 -600 / -600 -350 / -350 Intake: IV Fluids 300 / 300 300 / 300 Zyvox Premix 600mg/300mL 300 / 300 300 / 300 600 mg In 300 ml @ 150 mls/hr IVPB Q12H [facility] Rx#: [id number] Oral 600 / 600 Output: Urine 0 / 0 600 / 600 650 / 650 Other: Meal Lunch Percent of Meal Consumed 100% Stool Size Small Stool Consistency formed Stool Characteristics Normal for Patient Stool Color Brown Weight 90.083 kg Blood Glucose* 386 253 Patient Weight 07/21/16 23:59 Weight 90.083 kg - General Appearance General appearance: Present: well-developed, well-nourished, appears started age , obese EENT: Present: PERRL, mucous membranes moist Neck: Present: no JVD, no thyromegaly, no carotid bruit, supple Respiratory: Present: course breath sounds Cardiology: Present: no murmurs, no edema, regular rate, irregular rhythm, normal S1, normal S2 Gastrointestinal: Present: normoactive bowel sounds, no tenderness, no guarding Integumentary: Present: no rash, warm and dry Neurologic: Present: no focal deficit, no asterixis, alert and oriented x3, strength 5/5, CN 3-12 intact Musculoskeletal: Present: no deformities, no erythema, no cyanosis, no clubbing Additional Comments: 1+ pitting edema bilaterally, worsened from yesterday. Psychiatric: Present: mood/affect appropriate, cooperative - Lab 07/21/16 03:24 07/21/16 03:24 Most recent lab results Calcium 8.8 mg/dL (8.6-10.8) 07/21/16 03:24 Magnesium 1.8 mg/dL (1.6-2.6) 07/19/16 04:41 Urine Creatinine 59 mg/dL 07/13/16 21:00 Urine Total Protein 66 mg/dL (1-14) H 07/13/16 21:00 - VTE Documentation of Mechanical Device: Intermittent pneumatic compression device Consult Discharge Plan - Plan Referrals: Con Vogt CNP [Advanced Practice Nurse] - 08/02/16 3:30 pm Aliyah Prado CNP [Primary Care Provider] - (walk in facilities.. no need for an appointment.)
--- NOTE | 2016-07-21 07:07 | Pulmonology Progress Note ---
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 Renal biopsy did not show any evidence of kidney involvement at this time. Clinically she appears to be stable Recent blood cultures positive for VRE on antimicrobial therapy being followed by infectious disease. Chest x-ray done yesterday was not suggestive of worsening pulmonary disease I doubt that there is significant pulmonary involvement. The risk of initiating further systemic immunosuppression e.g. Cytoxan or Rituxan in the acute setting outweighs benefit given where she is clinically. I agree with continuation of enteral steroids (prednisone 80 mg likely discharge on 60mg daily) From a kidney standpoint renal function remained stable renal biopsy was negative for ANCA related glomerulonephritis and ANTI-GMB was negative. Her lower extremity pain I suspect is more related to arthritis or possibly even neuropathic pain with poorly controlled diabetes on steroids. However patient remains extremely high risk for development of venous thromboembolism so we have ordered a lower extremity duplex to exclude possibility of DVT. If this test is positive would not send patient to interventional radiology for placement of IVC filter as risk of re-challenging with full anticoagulation at present is deemed to carry too much risk Incidentally a right upper lobe Pulmonary Nodule was noted on CT imaging during this hospitalization. This will need continued radiographic follow-up in the outpatient setting for which we will compare to follow with us in the outpatient pulmonary clinic. (2) P-ANCA and MPO antibodies positive Current Visit: Yes Status: Acute (3) Pneumonia Current Visit: Yes Status: Acute Qualifiers: Pneumonia type: due to unspecified organism Laterality: right Lung location: upper lobe of lung Qualified Code(s): J18.1 - Lobar pneumonia, unspecified organism (4) Acute on chronic respiratory failure with hypoxia Current Visit: Yes Status: Acute Subjective Principal diagnosis: hemoptysis Interval history: Overall patient had a fairly uneventful night except she has been complaining of worsening lower extremity pain associated with some swelling. Appears to be from the upper leg all the way down to the ankle. Despite multiple topical interventions heat pad etc. pain has not resolved. No associated erythema and both legs appear to be affected equally . She continues to cough up dark blood clots about 5 times a day this is usually associated with use of incentive spirometer . She denies any fevers she continues to have joint pains Objective PUL Vital signs: Last Vital Signs Temp 97.6 F 07/21/16 04:25 Pulse 68 07/21/16 04:25 Resp 16 07/21/16 04:25 BP 160/79 07/21/16 04:25 Pulse Ox 98 07/21/16 04:25 General appearance: no acute distress Eyes: nonicteric ENT: oropharynx moist Auscultation: bilateral: clear Cardiovascular: regular rate and rhythm Extremities: edema (Trace bilateral lower extremity edema and no erythema) mood appropriate Results - Laboratory Findings CBC and BMP: 07/21/16 03:24 07/21/16 03:24 PT/INR, D-dimer PT 12.0 Seconds (9.4-12.1) 07/17/16 04:05 Abnormal lab findings: Abnormal lab results WBC 18.8 K/mcL (4.3-11.1) H 07/21/16 03:24 RBC 3.55 M/mcL (3.82-4.97) L 07/21/16 03:24 Hgb 9.7 g/dL (11.5-15.4) L 07/21/16 03:24 Hct 30.3 % (35.3-44.9) L 07/21/16 03:24 MCH 27.3 pg (28.0-33.3) L 07/21/16 03:24 RDW 16.8 % (11.5-14.5) H 07/21/16 03:24 Neutrophils # 15.2 K/mcL (1.6-8.9) H 07/21/16 03:24 Nucleated RBCs/100 WBC 0.2 /100 WBC (0) H 07/21/16 03:24 Hypersegmented Neuts Present (Not Present) A 07/14/16 04:24 Polychromasia 1+ (Not Present) A 07/17/16 04:05 Poikilocytosis 1+ (Not Present) A 07/14/16 04:24 Anisocytosis 1+ (Not Present) A 07/17/16 04:05 Microcytosis Present (Not Present) A 07/17/16 04:05 Stomatocytes 1+ (Not Present) A 07/14/16 04:24 ESR 58 mm/hr (0-15) H 07/14/16 04:24 BUN 45 mg/dL (7-20) H 07/21/16 03:24 Est GFR (Non-Af Amer) 51 (> 60) L 07/21/16 03:24 BUN/Creatinine Ratio 41 (6-26) H 07/21/16 03:24 Glucose 171 mg/dL (70-99) H 07/21/16 03:24 POC Glucose 386 (58-89) H 07/20/16 15:46 Hemoglobin A1c 7.6 % (-5.6) H 07/11/16 12:05 Total Bilirubin 1.4 mg/dL (0.2-1.2) H 07/21/16 03:24 Direct Bilirubin 0.7 mg/dL (0.0-0.5) H 07/21/16 03:24 AST 70 Units/L (5-34) H 07/21/16 03:24 ALT 73 Units/L (0-55) H 07/21/16 03:24 Troponin I 0.18 ng/mL (0-0.03) H* 07/12/16 01:06 C-Reactive Protein 278 mg/L (Less than 5) H 07/12/16 01:02 Serum Total Protein 5.9 g/dL (6.0-8.3) L 07/21/16 03:24 Albumin 2.8 g/dL (3.5-5.0) L 07/21/16 03:24 Albumin/Globulin Ratio 0.9 (1.1-2.2) L 07/21/16 03:24 TSH 0.072 mcIU/mL (0.350-4.840) L 07/15/16 02:58 PTH Intact 158.3 pg/ml (8.5-72.5) H 07/15/16 02:58 Urine Clarity Cloudy (Clear) A 07/13/16 21:00 Urine Protein 100 mg/dL (Neg-Trace) H 07/13/16 21:00 Urine Glucose (UA) >=1000 mg/dL (Normal) H 07/13/16 21:00 Urine Blood Moderate (Negative) H 07/13/16 21:00 Urine Microscopic WBC 3-5 per hpf (0-3) H 07/13/16 21:00 Ur Squamous Epith Cells Many per lpf (None-Few) H 07/13/16 21:00 Microalb/Creat Ratio 405 (0-30) H 07/13/16 21:00 Protein/Creatinin Ratio 1.12 mg/mg (0-0.20) H 07/13/16 21:00 Urine Total Protein 66 mg/dL (1-14) H 07/13/16 21:00 Fluid Appearance Cloudy (Clear) A 07/11/16 16:47 Vancomycin Trough 9.8 mcg/mL (10-20) L 07/13/16 10:43 CORINNE Screen DETECTED (None Detected) A 07/11/16 17:44 CORINNE Titer 1:1280 (<1:40) H 07/11/16 17:44 Myeloperoxidase Ab 44 AU/mL (0-19) H 07/11/16 17:44 ANCA IgG 1:5120 (<1:20) H 07/13/16 14:17 SS-A Ro 60 kDa Ab 71 AU/mL (0-40) H 07/13/16 16:45 Enterococcus sp PCR DETECTED (Not Detect) A 07/18/16 11:37 Peter/B-Vanco Res Genes DETECTED (Not Detect) A 07/18/16 11:37 - Microbiology Findings Microbiology Findings: Microbiology, Last 48 Hours 07/19/16 12:31 Blood Culture - Preliminary Peripheral Venipuncture No growth. 07/19/16 12:24 Blood Culture - Preliminary Peripheral Venipuncture No growth. 07/18/16 11:32 Blood Culture - Preliminary Peripheral Venipuncture Gram Positive Cocci 07/18/16 11:37 Blood Culture - Preliminary Peripheral Venipuncture Gram Positive Cocci - Clinical Findings Intake & Output: Intake & Output 07/20/16 07/20/16 07/21/16 15:59 23:59 07:59 Intake Total 900 / 900 300 / 300 Output Total 0 / 0 600 / 600 650 / 650 Balance 900 / 900 -600 / -600 -350 / -350 Weight 90.083 kg - VTE Documentation of Mechanical Device: Intermittent pneumatic compression device Consult Discharge Plan - Plan Referrals: Con Vogt, WARD MAID [Advanced Practice Nurse] - 08/02/16 3:30 pm Aliyah Prado CNP [Primary Care Provider] - (walk in facilities.. no need for an appointment.)
[2016-07-21] MEDS: Insulin LISPRO 300 UNITS/3 ML VIAL SQ SCH ×7 (08:33→21:05)
[2016-07-21] MEDS: predniSONE 20 MG TABLET PO SCH (08:43)
[2016-07-21] MEDS: Insulin DETEMIR 100 UNIT/ML X5UNITS SQ SCH ×2 (08:44→21:05)
[2016-07-21] MEDS: Isosorbide MONOnitrate (24 HR) 60 MG TAB.ER.24H PO SCH (08:44)
[2016-07-21] MEDS: Diltiazem CD (24hr) 180 MG CAPSULE PO SCH (08:46)
[2016-07-21] MEDS: Furosemide 40 MG TABLET PO SCH (08:46)
[2016-07-21] MEDS: cloNIDine HCl 0.1 MG TABLET PO SCH ×3 (14:09→21:05)
--- NOTE | 2016-07-21 14:55 | Venous Imaging Report ---
LE Venous Duplex Patient Name:Norah Graham Order Number:[id number] Procedure Date:07/21/2016 Date:6Age:60 yrs Gender:Female Location:[facility] Room #: 2A23 Csr Technician:Jacy Wadsworth Referring MD:Dami Morton MD astrochemist:Lindsay Mcclain, CAREER DEVELOPMENT SPECIALIST Reading MD:Clayton Lim MD Primary Indications:r/o DVT Secondary Indications: Impressions: Normal bilateral lower extremity deep and superficial venous exam. Recommendations: After imaging the patient returned to their room. Lower Extremity Venous Duplex Side Vein Compress Spontaneous Flow Augment Diameter (cm) Depth (cm) Right Distal Iliac Normal Yes Phasic Yes Right Common Femoral Normal Yes Phasic Yes Right Superficial Femoral Normal Yes Phasic Yes Right Popliteal Normal Yes Phasic Yes Right Posterior Tibial Normal Yes Phasic Yes Right Peroneal Normal Yes Phasic Yes Right Saphenofemoral Junction Normal Yes Phasic Yes Right Great Saphenous Normal Yes Phasic Yes Right Lesser Saphenous Normal Yes Phasic Yes Left Distal Iliac Normal Yes Phasic Yes Left Common Femoral Normal Yes Phasic Yes Left Superficial Femoral Normal Yes Phasic Yes Left Popliteal Normal Yes Phasic Yes Left Posterior Tibial Normal Yes Phasic Yes Left Peroneal Normal Yes Phasic Yes Left Saphenofemoral Junction Normal Yes Phasic Yes Left Great Saphenous Normal Yes Phasic Yes Left Lesser Saphenous Normal Yes Phasic Yes Updated by Clayton Lim MD on 07/21/2016 2:49:30 PM electronically signed on 07/21/2016 2:50:16 PM with status of Final
--- NOTE | 2016-07-21 15:26 | Internal Med Progress Note ---
Date of Encounter: 07/21/16 Time of Encounter: 15:22 - Assessment and plan (1) Diffuse pulmonary alveolar hemorrhage Current Visit: Yes Status: Acute Assessment and plan: Myeloperoxidase positive, methylprednisolone 125 mg every 6 hours pulse completed, switched to prednisone as per rheum input. 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 We have ID on board, at this point we have 2 sets of blood cultures showing gram positive cocci, will follow recommendations from our infectious disease team. Follow repeat set of cultures. Continue with Levemir, will increase the dose and give iv push as needed. We will continue monitoring fingerstick. Leukocytosis, persistent, likely due to steroids, positive blood culture, VRE, a consultation with ID was requested for further recommendations. We will stop the Zyvox and start daptomycin for the bacteremia secondary to VRE. Monitor CPK levels. Patient was complaining of right lower extremity pain and swelling, she underwent a venous duplex of the ipsilateral lower extremity, it was negative for deep venous thrombosis. Continue monitoring the patient closely. Afebrile, stable at this point, however her blood pressure is slightly elevated , nephrology is titrating her antihypertensive medications. She is still hyperglycemic, is improving slowly after the decreased dose of steroids. We will continue with insulin therapy. (2) Diabetes mellitus type 2, uncontrolled Current Visit: Yes Status: Chronic Assessment and plan: due to systemic steroids, continue insulin. continue monitring. 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 Continue with intermittent compression devices. (4) Acute on chronic respiratory failure with hypoxia Current Visit: Yes Status: Acute (5) Hemoptysis Current Visit: Yes Status: Acute (6) Atrial fibrillation Current Visit: Yes Status: Chronic Assessment and plan: on cardizem and betablockers, ventricular rate currently controlled. no AC due to hemoptysis. Qualifiers: Atrial fibrillation type: chronic Qualified Code(s): I48.2 - Chronic atrial fibrillation - Subjective Interval history: no fever, states that feels better, still on oxygen supplementation with nasal cannula, speaking full sentences. hemoptysis improving. Complaining of right lower extremity pain, underwent venous duplex of the lower extremity. Preliminary report states it was negative for deep venous thrombosis. - Constitutional Vitals: Temp Pulse Resp BP Pulse Ox 98.1 F 58 20 160/70 98 07/21/16 11:19 07/21/16 11:19 07/21/16 11:19 07/21/16 11:19 07/21/16 11:19 General appearance: Present: mild distress, A&O X 3 - Head Head exam: Present: atraumatic, normocephalic - Eye Eye exam: Present: PERRL, conjuntiva pink, sclera anicteric Pupils: Present: PERRL - Neck Neck exam general surgery: Present: supple, trachea midline. Absent: lymphadenopathy - Respiratory Respiratory exam: Present: decreased breath sounds. Absent: accessory muscle use, rales, rhonchi, wheezes - Cardiovascular Cardiovascular exam: Present: RRR, +S1, +S2. Absent: diastolic murmur, gallop, rubs, systolic murmur - GI/Abdominal GI/Abdominal exam: Present: normal bowel sounds, soft, no peritoneal signs. Absent: distended, tenderness - Extremities Exam Extremities exam: Present: warm, radial pulses palpable and symetrical. Absent : calf tenderness, cyanotic, pedal edema - Neurological Exam Neurological exam: Present: CN II-XII intact, oriented X3, no focal deficits. Absent: pronater drift, facial droop, speech deficit - Skin Skin exam: Present: dry, intact Internal Medicine: Result - Labs CBC & Chem 7: 07/21/16 03:24 07/21/16 03:24 Labs: Short CBC 07/21/16 Range/Units 03:24 WBC 18.8 H (4.3-11.1) K/mcL Hgb 9.7 L (11.5-15.4) g/dL Hct 30.3 L (35.3-44.9) % Plt Count 267 (140-400) K/mcL Neutrophils # 15.2 H (1.6-8.9) K/mcL BMP 07/21/16 03:24 Sodium 137 Potassium 4.0 Chloride 98 Carbon Dioxide 29 BUN 45 H Creatinine 1.10 Glucose 171 H Calcium 8.8 Liver Function 07/21/16 Range/Units 03:24 Total Bilirubin 1.4 H (0.2-1.2) mg/dL Direct Bilirubin 0.7 H (0.0-0.5) mg/dL AST 70 H (5-34) Units/L ALT 73 H (0-55) Units/L Alkaline Phosphatase 64 (38-126) Units/L Albumin 2.8 L (3.5-5.0) g/dL - ABG Interpretation ABG results: PT/INR, D-dimer PT 12.0 Seconds (9.4-12.1) 07/17/16 04:05 - VTE Documentation of Mechanical Device: Intermittent pneumatic compression device Consult Discharge Plan - Plan Referrals: Con Vogt W[employer]ATMENT [employer]ANT OPERATOR [Advanced Practice Nurse] - 08/02/16 3:30 pm Aliyah Prado CNP [Primary Care Provider] - (walk in facilities.. no need for an appointment.)
[2016-07-21] MEDS: SODIUM CHLORIDE 0.9% IVPB SCH (16:40)
[2016-07-21] MEDS: DAPTOMYCIN IVPB SCH (16:40)
[2016-07-21] MEDS ORDERED: Magnesium Oxide 400 MG TABLET PO SCH (21:00)
[2016-07-22] MEDS: *HR* HYDROcodone/Acet 5/325 mg TABLET PO PRN (00:10)
[2016-07-22] MEDS: *HR* OxyCODONE/APAP 10/325 TABLET PO PRN ×2 (03:07→20:05)
[2016-07-22 04:13] LABS: Basophils % 0.1 %; Eosinophils % 0.1 %; Hematocrit 30.1 % (35.3-44.9); Hemoglobin 9.6 g/dL (11.5-15.4); Lymphocytes # 1.5 K/mcL (0.6-4.6); Lymphocytes % 9.4 %; Mean Corpuscular HGB Conc 31.9 g/dL (31.6-35.5); Mean Corpuscular Hemoglobin 27.5 pg (28.0-33.3); Mean Corpuscular Volume 86.2 fL (83.0-100.0); Mean Platelet Volume 9.6 fL (9.4-12.4); Monocytes # 0.9 K/mcL (0.0-1.3); Monocytes % 5.6 %; Neutrophils # 13.1 K/mcL (1.6-8.9); Platelet Count 250 K/mcL (140-400); Red Blood Count 3.49 M/mcL (3.82-4.97); Segmented Neutrophils % 82.8 %
[2016-07-22 04:31] LABS: BUN/Creatinine Ratio 36 (6-26); Blood Urea Nitrogen 37 mg/dL (7-20); Calcium 8.6 mg/dL (8.6-10.8); Carbon Dioxide 30 mEq/L (19-29); Chloride 97 mEq/L (98-109); Creatine Kinase 182 Units/L (29-168); Glucose 297 mg/dL (70-99); Osmolality,Calculated 304 (280-300); Potassium 3.9 mEq/L (3.5-4.5); Sodium 137 mEq/L (136-145); eGFR For African Americans > 60 (> 60); eGFR For Non-African Americans 55 (> 60)
--- NOTE | 2016-07-22 06:58 | Pulmonology Progress Note ---
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 Renal biopsy did not show any evidence of kidney involvement and creatinine has normalized. at this time. Recent blood cultures positive for VRE on antimicrobial therapy being followed by infectious disease. I do not feel that she has pulmonary involvement. The risk of initiating further systemic immunosuppression e.g. Cytoxan or Rituxan in the acute setting outweighs benefit given where she is clinically. This can be determined by the Rheumatology service at time of discharge for remission maintenance. To this end I agree with continuation of enteral steroids (prednisone 80 mg likely discharge on 60mg daily) Incidentally a right upper lobe Pulmonary Nodule was noted on CT imaging during this hospitalization. This will need continued radiographic follow-up in the outpatient setting for which we will compare to follow with us in the outpatient pulmonary clinic as well as scheduling a formal PSG to evaluate for sleep disordered breathing. She will need to be discharged on supplemental O2 to keep saturation around 92% at all times. No further pulmonary recs at this time and will sign off. Please call with any questions. (2) P-ANCA and MPO antibodies positive Current Visit: Yes Status: Acute (3) Pneumonia Current Visit: Yes Status: Acute Qualifiers: Pneumonia type: due to unspecified organism Laterality: right Lung location: upper lobe of lung Qualified Code(s): J18.1 - Lobar pneumonia, unspecified organism (4) Acute on chronic respiratory failure with hypoxia Current Visit: Yes Status: Acute Subjective Principal diagnosis: hemoptysis Interval history: She continues to complain of lower extremity pain. Duplex performed yesterday was negative for lower extremity DVT. Counterintuitive late when her legs are less swollen she feels more pain. She has not had any significant episodes of hemoptysis and says breathing is not labored. Objective PUL Vital signs: Last Vital Signs Temp 97.9 F 07/22/16 04:06 Pulse 70 07/22/16 04:06 Resp 18 07/22/16 04:06 BP 166/81 07/22/16 04:06 Pulse Ox 95 07/22/16 04:06 General appearance: no acute distress ENT: oropharynx moist Auscultation: bilateral: rales Gastrointestinal: normoactive bowel sounds Extremities: edema normal mental status, non-focal exam Results - Laboratory Findings CBC and BMP: 07/22/16 03:45 07/22/16 03:45 PT/INR, D-dimer PT 12.0 Seconds (9.4-12.1) 07/17/16 04:05 Abnormal lab findings: Abnormal lab results WBC 15.9 K/mcL (4.3-11.1) H 07/22/16 03:45 RBC 3.49 M/mcL (3.82-4.97) L 07/22/16 03:45 Hgb 9.6 g/dL (11.5-15.4) L 07/22/16 03:45 Hct 30.1 % (35.3-44.9) L 07/22/16 03:45 MCH 27.5 pg (28.0-33.3) L 07/22/16 03:45 RDW 17.0 % (11.5-14.5) H 07/22/16 03:45 Neutrophils # 13.1 K/mcL (1.6-8.9) H 07/22/16 03:45 Nucleated RBCs/100 WBC 0.2 /100 WBC (0) H 07/21/16 03:24 Hypersegmented Neuts Present (Not Present) A 07/14/16 04:24 Polychromasia 1+ (Not Present) A 07/17/16 04:05 Poikilocytosis 1+ (Not Present) A 07/14/16 04:24 Anisocytosis 1+ (Not Present) A 07/17/16 04:05 Microcytosis Present (Not Present) A 07/17/16 04:05 Stomatocytes 1+ (Not Present) A 07/14/16 04:24 ESR 58 mm/hr (0-15) H 07/14/16 04:24 Chloride 97 mEq/L (98-109) L 07/22/16 03:45 Carbon Dioxide 30 mEq/L (19-29) H 07/22/16 03:45 BUN 37 mg/dL (7-20) H 07/22/16 03:45 Est GFR (Non-Af Amer) 55 (> 60) L 07/22/16 03:45 BUN/Creatinine Ratio 36 (6-26) H 07/22/16 03:45 Glucose 297 mg/dL (70-99) H 07/22/16 03:45 POC Glucose 341 (58-89) H 07/21/16 20:43 Hemoglobin A1c 7.6 % (-5.6) H 07/11/16 12:05 Calculated Osmolality 304 (280-300) H 07/22/16 03:45 Total Bilirubin 1.4 mg/dL (0.2-1.2) H 07/21/16 03:24 Direct Bilirubin 0.7 mg/dL (0.0-0.5) H 07/21/16 03:24 AST 70 Units/L (5-34) H 07/21/16 03:24 ALT 73 Units/L (0-55) H 07/21/16 03:24 Creatine Kinase 182 Units/L (29-168) H D 07/22/16 03:45 Troponin I 0.18 ng/mL (0-0.03) H* 07/12/16 01:06 C-Reactive Protein 278 mg/L (Less than 5) H 07/12/16 01:02 Serum Total Protein 5.9 g/dL (6.0-8.3) L 07/21/16 03:24 Albumin 2.8 g/dL (3.5-5.0) L 07/21/16 03:24 Albumin/Globulin Ratio 0.9 (1.1-2.2) L 07/21/16 03:24 TSH 0.072 mcIU/mL (0.350-4.840) L 07/15/16 02:58 PTH Intact 158.3 pg/ml (8.5-72.5) H 07/15/16 02:58 Urine Clarity Cloudy (Clear) A 07/13/16 21:00 Urine Protein 100 mg/dL (Neg-Trace) H 07/13/16 21:00 Urine Glucose (UA) >=1000 mg/dL (Normal) H 07/13/16 21:00 Urine Blood Moderate (Negative) H 07/13/16 21:00 Urine Microscopic WBC 3-5 per hpf (0-3) H 07/13/16 21:00 Ur Squamous Epith Cells Many per lpf (None-Few) H 07/13/16 21:00 Microalb/Creat Ratio 405 (0-30) H 07/13/16 21:00 Protein/Creatinin Ratio 1.12 mg/mg (0-0.20) H 07/13/16 21:00 Urine Total Protein 66 mg/dL (1-14) H 07/13/16 21:00 Fluid Appearance Cloudy (Clear) A 07/11/16 16:47 Vancomycin Trough 9.8 mcg/mL (10-20) L 07/13/16 10:43 CORINNE Screen DETECTED (None Detected) A 07/11/16 17:44 CORINNE Titer 1:1280 (<1:40) H 07/11/16 17:44 Myeloperoxidase Ab 44 AU/mL (0-19) H 07/11/16 17:44 ANCA IgG 1:5120 (<1:20) H 07/13/16 14:17 SS-A Ro 60 kDa Ab 71 AU/mL (0-40) H 07/13/16 16:45 Histone IgG Antibody 2.5 Units (0.0-0.9) H 07/19/16 07:48 Enterococcus sp PCR DETECTED (Not Detect) A 07/18/16 11:37 Peter/B-Vanco Res Genes DETECTED (Not Detect) A 07/18/16 11:37 - Microbiology Findings Microbiology Findings: Microbiology, Last 48 Hours 07/18/16 11:37 Blood Culture - Preliminary Peripheral Venipuncture Gram Positive Cocci 07/19/16 12:31 Blood Culture - Preliminary Peripheral Venipuncture No growth. 07/19/16 12:24 Blood Culture - Preliminary Peripheral Venipuncture No growth. 07/18/16 11:32 Blood Culture - Preliminary Peripheral Venipuncture Gram Positive Cocci - Clinical Findings Intake & Output: Intake & Output 07/21/16 07/21/16 07/22/16 15:59 23:59 07:59 Intake Total 480 / 480 0 / 0 480 / 480 Output Total 0 / 0 1999 / 1999 Balance 480 / 480 -1999 / -1999 480 / 480 Weight 91 kg - VTE Documentation of Mechanical Device: Intermittent pneumatic compression device Consult Discharge Plan - Plan Referrals: Con Vogt CNP [Advanced Practice Nurse] - 08/02/16 3:30 pm Johan,Aliyah K, EDUCATIONAL DIAGNOSTICIAN [Primary Care Provider] - (walk in facilities.. no need for an appointment.)
[2016-07-22] MEDS: predniSONE 20 MG TABLET PO SCH (08:30)
[2016-07-22] MEDS: Furosemide 40 MG TABLET PO SCH (08:30)
[2016-07-22] MEDS: cloNIDine HCl 0.1 MG TABLET PO SCH (08:30)
[2016-07-22] MEDS: Diltiazem CD (24hr) 180 MG CAPSULE PO SCH (08:30)
[2016-07-22] MEDS: Insulin DETEMIR 100 UNIT/ML X5UNITS SQ SCH ×2 (08:30→20:06)
[2016-07-22] MEDS: Isosorbide MONOnitrate (24 HR) 60 MG TAB.ER.24H PO SCH (08:30)
[2016-07-22] MEDS: Insulin LISPRO 300 UNITS/3 ML VIAL SQ SCH ×7 (08:32→20:06)
--- NOTE | 2016-07-22 10:52 | Nephrology Progress Note ---
Date of Encounter: 07/22/16 Time of Encounter: 10:51 - Assessment and Plan (1) VALERY (acute kidney injury) Current Visit: Yes Status: Acute Her VALERY has resolved. She is back to her baseline renal function. (2) Hypertension Current Visit: Yes Status: Chronic Occasional elevations in her blood pressure may be related to pain. Her blood pressure overall is uncontrolled. Qualifiers: Hypertension type: essential hypertension Qualified Code(s): I10 - Essential (primary) hypertension (3) Diabetes mellitus type 2, uncontrolled Current Visit: Yes Status: Chronic per primary team. Qualifiers: Diabetes mellitus complication status: with neurologic complications Diabetes mellitus complication detail: with unspecified neuropathy Diabetes mellitus terminal superintendent insulin use: with halfway use Qualified Code(s): E11.40 - Type 2 diabetes mellitus with diabetic neuropathy, unspecified; E11.65 - Type 2 diabetes mellitus with hyperglycemia; Z79.4 - [facility] (current) use of insulin (4) Chronic kidney disease, stage 3 Current Visit: Yes Status: Chronic Monitor renal function. Subjective Principal diagnosis: hemoptysis Interval history: Patient seen. She has no new complaints other than intermittent leg pain. ROS otherwise seems stable. Objective - Vital Signs Vital signs: Vital Signs Temp Pulse Resp BP Pulse Ox 07/22/16 08:07 97.9 F 77 16 165/98 96 07/22/16 04:06 97.9 F 70 18 166/81 95 07/21/16 23:43 98.4 F 87 18 182/83 95 07/21/16 23:11 100 07/21/16 20:48 98.1 F 77 18 179/68 95 07/21/16 16:14 98.2 F 79 18 163/71 95 07/21/16 11:19 98.1 F 58 20 160/70 98 Intake and Output 07/21/16 07/22/16 07/22/16 23:59 07:59 15:59 Intake Total 0 / 0 480 / 480 360 / 360 Output Total 1999 250 / 250 Balance -1999 / -1999 480 / 480 110 / 110 Intake: Oral 0 / 0 480 / 480 360 / 360 Output: Urine 1999 250 / 250 Other: Meal Breakfast Percent of Meal Consumed 100% Stool Size Large Stool Color Brown # Voids 1 1 1 # Bowel Movements 1 Weight 91 kg Blood Glucose* 341 186 Patient Weight 07/22/16 23:59 Weight 91 kg - General Appearance General appearance: Present: well-developed, well-nourished EENT: Present: ATNC Neck: Present: supple Cardiology: Present: regular rate Neurologic: Present: alert and oriented x3 Psychiatric: Present: mood/affect appropriate - Lab 07/22/16 03:45 07/22/16 03:45 Most recent lab results Calcium 8.6 mg/dL (8.6-10.8) 07/22/16 03:45 Magnesium 1.8 mg/dL (1.6-2.6) 07/19/16 04:41 Urine Creatinine 59 mg/dL 07/13/16 21:00 Urine Total Protein 66 mg/dL (1-14) H 07/13/16 21:00 - VTE Documentation of Mechanical Device: Intermittent pneumatic compression device Consult Discharge Plan - Plan Referrals: Con Vogt HAND II TUBE BENDER [Advanced Practice Nurse] - 08/02/16 3:30 pm Aliyah Prado HAND II TUBE BENDER [Primary Care Provider] - (walk in facilities.. no need for an appointment.)
--- NOTE | 2016-07-22 12:59 | Internal Med Progress Note ---
Date of Encounter: 07/22/16 Time of Encounter: 11:50 - Assessment and plan (1) Diffuse pulmonary alveolar hemorrhage Current Visit: Yes Status: Acute Assessment and plan: Myeloperoxidase positive, methylprednisolone 125 mg every 6 hours pulse completed, switched to prednisone as per rheum input. 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 We have ID on board, at this point we have 2 sets of blood cultures showing gram positive cocci, will follow recommendations from our infectious disease team. Follow repeat set of cultures. Continue with Levemir, will increase the dose and give iv push as needed. We will continue monitoring fingerstick. Leukocytosis, persistent, likely due to steroids, positive blood culture, VRE, a consultation with ID was requested for further recommendations. Continue with daptomycin for the bacteremia secondary to VRE. Monitor CPK levels. The patient has been complaining of pain in lower extremities, which could be secondary to myopathy induced by daptomycin, differential diagnosis of diabetic neuropathy, will continue monitoring her cpk levels, if elevated 5 times above upper limit will d/c daptomycin. Patient was complaining of right lower extremity pain and swelling, she underwent a venous duplex of the ipsilateral lower extremity, it was negative for deep venous thrombosis. Continue monitoring the patient closely. Afebrile, stable at this point, however her blood pressure is slightly elevated , nephrology is titrating her antihypertensive medications. She is still hyperglycemic, is improving slowly after the decreased dose of steroids. We will continue with insulin therapy. 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 Qualified Code(s): E11.40 - Type 2 diabetes mellitus with diabetic neuropathy, unspecified; E11.65 - Type 2 diabetes mellitus with hyperglycemia; Z79.4 - [facility] (current) use of insulin (3) DVT prophylaxis Current Visit: No Status: Acute (4) Acute on chronic respiratory failure with hypoxia Current Visit: Yes Status: Acute (5) Hemoptysis Current Visit: Yes Status: Acute (6) Atrial fibrillation Current Visit: Yes Status: Chronic Qualifiers: Atrial fibrillation type: chronic Qualified Code(s): I48.2 - Chronic atrial fibrillation - Subjective Interval history: no fever, states that feels better, still on oxygen supplementation with nasal cannula, speaking full sentences. hemoptysis improving. - Constitutional Vitals: Temp Pulse Resp BP Pulse Ox 96.8 F L 92 16 166/79 98 07/22/16 12:50 07/22/16 12:50 07/22/16 12:50 07/22/16 12:50 07/22/16 12:50 General appearance: Present: cooperative, mild distress, A&O X 3, pleasant, no acute distress - Head Head exam: Present: atraumatic, normocephalic - Eye Eye exam: Present: PERRL, conjuntiva pink, sclera anicteric Pupils: Present: PERRL - Neck Neck exam general surgery: Present: supple, trachea midline. Absent: lymphadenopathy - Respiratory Respiratory exam: Present: decreased breath sounds. Absent: accessory muscle use, rales, rhonchi, wheezes - Cardiovascular Cardiovascular exam: Present: RRR, +S1, +S2. Absent: diastolic murmur, gallop, rubs, systolic murmur - GI/Abdominal GI/Abdominal exam: Present: normal bowel sounds, soft, no peritoneal signs. Absent: distended, tenderness - Extremities Exam Extremities exam: Present: warm, radial pulses palpable and symetrical. Absent : calf tenderness, cyanotic, pedal edema - Neurological Exam Neurological exam: Present: CN II-XII intact, oriented X3, no focal deficits. Absent: pronater drift, facial droop, speech deficit - Skin Skin exam: Present: dry, intact Internal Medicine: Result - Labs CBC & Chem 7: 07/22/16 03:45 07/22/16 03:45 Labs: Short CBC 07/22/16 Range/Units 03:45 WBC 15.9 H (4.3-11.1) K/mcL Hgb 9.6 L (11.5-15.4) g/dL Hct 30.1 L (35.3-44.9) % Plt Count 250 (140-400) K/mcL Neutrophils # 13.1 H (1.6-8.9) K/mcL BMP 07/22/16 03:45 Sodium 137 Potassium 3.9 Chloride 97 L Carbon Dioxide 30 H BUN 37 H Creatinine 1.03 Glucose 297 H Calcium 8.6 - ABG Interpretation ABG results: PT/INR, D-dimer PT 12.0 Seconds (9.4-12.1) 07/17/16 04:05 - VTE Documentation of Mechanical Device: Intermittent pneumatic compression device Consult Discharge Plan - Plan Referrals: Con Vogt CNP [Advanced Practice Nurse] - 08/02/16 3:30 pm Aliyah Prado CNP [Primary Care Provider] - (walk in facilities.. no need for an appointment.)
[2016-07-22] MEDS: SODIUM CHLORIDE 0.9% IVPB SCH (15:37)
[2016-07-22] MEDS: DAPTOMYCIN IVPB SCH (15:37)
[2016-07-22] MEDS: *HR* LORazepam 0.5 MG TABLET PO PRN (22:37)
[2016-07-23] MEDS: *HR* HYDROcodone/Acet 5/325 mg TABLET PO PRN (02:29)
[2016-07-23] MEDS ORDERED: *HR* Morphine 2 MG/ML SYRINGE IVP ONE (02:40)
[2016-07-23] MEDS ORDERED: *HR* HYDROmorphone (PF) 1 MG/ML SYRINGE IVP ONE (04:30)
[2016-07-23 05:11] LABS: Eosinophils % 0.1 %; Lymphocytes % 7.9 %; Monocytes % 3.5 %
[2016-07-23 05:12] LABS: Basophils % 0.1 %; Hematocrit 35.6 % (35.3-44.9); Hemoglobin 11.7 g/dL (11.5-15.4); Lymphocytes # 2.8 K/mcL (0.6-4.6); Mean Corpuscular HGB Conc 32.9 g/dL (31.6-35.5); Mean Corpuscular Hemoglobin 28.1 pg (28.0-33.3); Mean Corpuscular Volume 85.4 fL (83.0-100.0); Mean Platelet Volume 10.2 fL (9.4-12.4); Monocytes # 1.2 K/mcL (0.0-1.3); Neutrophils # 30.9 K/mcL (1.6-8.9); Nucleated Red Blood Cells 0.2 /100 WBC (0); Platelet Count 259 K/mcL (140-400); Red Blood Count 4.17 M/mcL (3.82-4.97); Segmented Neutrophils % 87.4 %
[2016-07-23 05:15] LABS: INR 0.9; Prothrombin Time 10.1 Seconds (9.4-12.1)
[2016-07-23 05:18] LABS: Activated Partial Thrombo Time 17.6 Seconds (26.0-36.0)
[2016-07-23 05:23] LABS: BUN/Creatinine Ratio 36 (6-26); Blood Urea Nitrogen 40 mg/dL (7-20); Calcium 9.4 mg/dL (8.6-10.8); Carbon Dioxide 32 mEq/L (19-29); Chloride 99 mEq/L (98-109); Creatine Kinase 169 Units/L (29-168); Glucose 147 mg/dL (70-99); Osmolality,Calculated 306 (280-300); Potassium 3.3 mEq/L (3.5-4.5); Sodium 142 mEq/L (136-145); eGFR For African Americans > 60 (> 60); eGFR For Non-African Americans 50 (> 60)
[2016-07-23] MEDS ORDERED: *HR* Heparin 5,000 UNIT/ML VIAL IVP PRN ×4 (05:25→10:34)
[2016-07-23] MEDS ORDERED: *HR* Heparin 5,000 UNIT/ML VIAL IVP ONE (05:25)
--- NOTE | 2016-07-23 05:29 | Event Note ---
Date of Encounter: 07/23/16 Time of Encounter: 05:28 Right lower extremity DVT (suspected): Hospitalist note: I was paged to evaluated the patient was complaining of right calf pain. she has been c/o worsening pain in the right calf and had a negative venous doppler ultrasound on 07/21/16. On my evaluation, she has significant swelling of the right calf compared to the left; warm to touch and tender. Stat D-dimer is elevated at 6000. She is not on prophylactic anticoagulation at this time. I have high clinical suspicion for DVT and started on heparin infusion and requested for repeat venous doppler. Morning team to follow the results of the scan.
[2016-07-23] MEDS ORDERED: Heparin 25,000 UNIT/500 ML D5W 25,000 UNIT/500 ML MLS IVC SCH ×2 (05:30→10:45)
[2016-07-23 05:35] LABS: Hypersegmented Neutrophils Present (Not Present); Platelet Estimate Normal (Normal)
[2016-07-23 05:36] LABS: Anisocytosis 1+ (Not Present)
[2016-07-23] MEDS: Insulin LISPRO 300 UNITS/3 ML VIAL SQ SCH ×6 (07:55→17:03)
[2016-07-23] MEDS: Isosorbide MONOnitrate (24 HR) 60 MG TAB.ER.24H PO SCH (07:56)
[2016-07-23] MEDS: Diltiazem CD (24hr) 180 MG CAPSULE PO SCH (07:56)
[2016-07-23] MEDS: Furosemide 40 MG TABLET PO SCH (07:56)
[2016-07-23] MEDS: *HR* OxyCODONE/APAP 10/325 TABLET PO PRN ×2 (07:56→12:36)
[2016-07-23] MEDS: predniSONE 20 MG TABLET PO SCH (07:56)
[2016-07-23] MEDS: Insulin DETEMIR 100 UNIT/ML X5UNITS SQ SCH (07:57)
[2016-07-23] MEDS: *HR* Acetylcysteine 20% 600 MG/3 ML ORAL SYRINGE PO SCH (10:34)
--- NOTE | 2016-07-23 10:44 | Internal Med Progress Note ---
Date of Encounter: 07/23/16 Time of Encounter: 09:34 - Assessment and plan (1) Diffuse pulmonary alveolar hemorrhage Current Visit: Yes Status: Acute Assessment and plan: 07/23/16. 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 Continue with prednisone 80 mg daily. Bacteremia, antibiotics according to recommendations by our infectious disease team. Pain and tenderness right lower extremity, overnight pain got worse and was started on heparin drip due to positive d-dimer and erythema with increased temperature in the above-mentioned area. A venous duplex was requested, due to severe pain the study could not be completed in its entirety, evaluation of deep venous system below the knee was not fully performed. Therefore, a deep venous thrombosis could not be completely ruled out. In this setting, I discussed the case with the radiologist, I ordered a CT of the lower extremity with IV contrast, a venogram CT. The patient however has a chronic kidney disease with a GFR of 50. I discussed this scenario with our garden implement mechanic, he recommended to stop the Lasix, stop the lisinopril, give Mucomyst and sodium bicarbonate. Patient has risk of bleeding due to her alveolar hemorrhage, we need to rule out a deep venous thrombosis, if a DVT is positive patient will benefit from an IVC filter. CPK levels decreased compared to yesterday. Will continue monitoring her cpk levels, if elevated 5 times above upper limit will d/c daptomycin. Mild hypokalemia. Glucose that better this morning. Continue with insulin therapy. Worsening leukocytosis, patient on daptomycin due to VRE bacteremia. 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 - Constitutional Vitals: Temp Pulse Resp BP Pulse Ox 98 F 108 18 165/83 97 07/23/16 07:53 07/23/16 07:53 07/23/16 07:53 07/23/16 07:53 07/23/16 07:53 General appearance: Present: cooperative, mild distress, A&O X 3, pleasant, no acute distress - Head Head exam: Present: atraumatic, normocephalic - Eye Eye exam: Present: PERRL, conjuntiva pink, sclera anicteric Pupils: Present: PERRL - Neck Neck exam general surgery: Present: supple, trachea midline. Absent: lymphadenopathy - Respiratory Respiratory exam: Present: CTAB. Absent: accessory muscle use, rales, rhonchi, wheezes - Cardiovascular Cardiovascular exam: Present: RRR, +S1, +S2. Absent: diastolic murmur, gallop, rubs, systolic murmur - GI/Abdominal GI/Abdominal exam: Present: normal bowel sounds, soft, no peritoneal signs. Absent: distended, tenderness - Extremities Exam Extremities exam: Present: pedal edema, warm, radial pulses palpable and symetrical. Absent: calf tenderness, cyanotic Additional comments: calf tenderness in the right lower extremity with increased temperature upon palpation and severe pain upon palpation. - Neurological Exam Neurological exam: Present: CN II-XII intact, oriented X3, no focal deficits. Absent: pronater drift, facial droop, speech deficit - Skin Skin exam: Present: dry, intact Internal Medicine: Result - Labs CBC & Chem 7: 07/23/16 05:02 07/23/16 05:02 Labs: Short CBC 07/23/16 Range/Units 05:02 WBC 35.3 H* D (4.3-11.1) K/mcL Hgb 11.7 D (11.5-15.4) g/dL Hct 35.6 (35.3-44.9) % Plt Count 259 (140-400) K/mcL Neutrophils # 30.9 H (1.6-8.9) K/mcL BMP 07/23/16 05:02 Sodium 142 Potassium 3.3 L Chloride 99 Carbon Dioxide 32 H BUN 40 H Creatinine 1.12 H Glucose 147 H Calcium 9.4 - ABG Interpretation ABG results: PT/INR, D-dimer PT 10.1 Seconds (9.4-12.1) 07/23/16 05:02 D-Dimer 6124 ng/mLFEU (0-500) H 07/23/16 05:02 - VTE Documentation of Mechanical Device: Intermittent pneumatic compression device Consult Discharge Plan - Plan Referrals: Con Vogt CNP [Advanced Practice Nurse] - 08/02/16 3:30 pm Aliyah Prado CNP [Primary Care Provider] - (walk in facilities.. no need for an appointment.)
--- NOTE | 2016-07-23 14:18 | Nephrology Progress Note ---
Date of Encounter: 07/23/16 Time of Encounter: 14:15 - Assessment and Plan (1) VALERY (acute kidney injury) Current Visit: Yes Status: Acute Her VALERY had resolved. Today there is a slight increase. This may worsen secondary to her exposure to contrast. (2) Hypertension Current Visit: Yes Status: Chronic Occasional elevations in her blood pressure may be related to pain. Her blood pressure overall is uncontrolled. Will have to hold lasix and ARB secondary to contrast exposure. She may need additional antihypertensive medications. Qualifiers: Hypertension type: essential hypertension Qualified Code(s): I10 - Essential (primary) hypertension (3) Leg pain, right Current Visit: Yes Status: Acute Right lower leg pain of unclear etiology. No DVT seen with CT venogram nor previous venous dopplar. Patient's complaint could be related to compartment syndrome or myositis, but there is no clear etiology for that also one would think a myositis would improve with steroids. Prednisone can cause a myopathy, but should not result in a myositis. Patient with a slight rise in CPK. She has a significant Ddimer Spoke with Dr. Teran regarding contacting vascular surgery to see if they think there is a surgical issue. Dr. Teran will also order an arterial duplex and monitoring of pulses. (4) Diabetes mellitus type 2, uncontrolled Current Visit: Yes Status: Chronic per primary team. Qualifiers: Diabetes mellitus complication status: with neurologic complications Diabetes mellitus complication detail: with unspecified neuropathy Diabetes mellitus assisted insulin use: with assisted use Qualified Code(s): E11.40 - Type 2 diabetes mellitus with diabetic neuropathy, unspecified; E11.65 - Type 2 diabetes mellitus with hyperglycemia; Z79.4 - director long term care (current) use of insulin (5) Chronic kidney disease, stage 3 Current Visit: Yes Status: Chronic Monitor renal function. Subjective Principal diagnosis: hemoptysis Interval history: Patient seen and evaluated. She has been complaining of increasing right lower leg pain. I spoke with Dr. Teran regarding the issue and she had a CT venogram performed as she would not tolerate LE dopplar. She has discomfort in that extremity even when the fan blows on the affected part of the limb. The area feels warm. It is painful when she moves it. Review of systems is otherwise negative. Objective - Vital Signs Vital signs: Vital Signs Temp Pulse Resp BP Pulse Ox 07/23/16 12:16 98.2 F 84 16 132/61 97 07/23/16 07:53 98 F 108 18 165/83 97 07/23/16 04:11 98.3 F 92 18 189/78 95 07/22/16 23:30 97.7 F 94 18 185/81 97 07/22/16 19:30 98.7 F 93 18 182/70 95 07/22/16 15:53 98.5 F 76 16 166/75 94 Intake and Output 07/22/16 07/23/16 07/23/16 23:59 07:59 15:59 Intake Total 340 / 340 0 / 0 Output Total 200 / 200 700 / 700 0 / 0 Balance 140 / 140 -700 / -700 0 / 0 Intake: IV Fluids 100 / 100 Cubicin 540 MG In 0.9 % 100 / 100 Sodium Chloride 100 ML @ 200 mls/hr IVPB Q[facility]H [facility] Rx#:[id number] Oral 240 / 240 0 / 0 Output: Urine 200 / 200 700 / 700 0 / 0 Other: Meal Dinner Percent of Meal Consumed 30% # Voids 1 Weight 88.9 kg Blood Glucose* 278 169 129 Patient Weight 07/23/16 23:59 Weight 88.9 kg - General Appearance General appearance: Present: well-developed, well-nourished EENT: Present: ATNC Neck: Present: supple Respiratory: Present: clear Cardiology: Present: edema, regular rate, regular rhythm Gastrointestinal: Present: no tenderness Integumentary: Present: warm and dry Neurologic: Present: alert and oriented x3 Musculoskeletal: Present: no cyanosis Additional Comments: Right lower leg is swollen and extremely tender to touch. There is no erythema , but has a slightly dark blue tone on the lateral sides. The are is warm to the touch especially in the mid leg area. The lower foot seems cool, but consistent with the other foot. Both lower legs are edematous with possibly the right leg being larger than the left. Psychiatric: Present: mood/affect appropriate - Lab 07/23/16 05:02 07/23/16 05:02 Most recent lab results Calcium 9.4 mg/dL (8.6-10.8) 07/23/16 05:02 Magnesium 1.8 mg/dL (1.6-2.6) 07/19/16 04:41 Urine Creatinine 59 mg/dL 07/13/16 21:00 Urine Total Protein 66 mg/dL (1-14) H 07/13/16 21:00 - VTE Documentation of Mechanical Device: Intermittent pneumatic compression device Consult Discharge Plan - Plan Referrals: Con Vogt, CARD SETTER [Advanced Practice Nurse] - 08/02/16 3:30 pm Aliyah Prado, MARK [Primary Care Provider] - (walk in facilities.. no need for an appointment.)
[2016-07-23 16:18] LABS: Basophils # 0.1 K/mcL (0.0-0.2); Basophils % 0.2 %; Hematocrit 33.8 % (35.3-44.9); Hemoglobin 10.9 g/dL (11.5-15.4); Immature Granulocytes % 1.3 % (0-4); Immature Platelets 4.4 % (1.1-6.1); Lymphocytes # 1.4 K/mcL (0.6-4.6); Lymphocytes % 3.8 %; Mean Corpuscular HGB Conc 32.2 g/dL (31.6-35.5); Mean Corpuscular Hemoglobin 27.9 pg (28.0-33.3); Mean Corpuscular Volume 86.7 fL (83.0-100.0); Mean Platelet Volume 10.5 fL (9.4-12.4); Monocytes # 1.1 K/mcL (0.0-1.3); Monocytes % 2.8 %; Neutrophils # 34.9 K/mcL (1.6-8.9); Nucleated Red Blood Cells 0.1 /100 WBC (0); Platelet Count 231 K/mcL (140-400); Red Cell Distribution Width 18.1 % (11.5-14.5); Segmented Neutrophils % 91.9 %
[2016-07-23 16:48] LABS: Anisocytosis 1+ (Not Present); Platelet Estimate Normal (Normal); Polychromasia 1+ (Not Present)
[2016-07-23] MEDS: SODIUM CHLORIDE 0.9% IVPB SCH (16:49)
[2016-07-23] MEDS: DAPTOMYCIN IVPB SCH (16:49)
[2016-07-23] MEDS ORDERED: Levofloxacin 750 MG/150 ML 750 MG/150 ML BAG IVPB ONE (17:01)
[2016-07-23] MEDS: MetroNIDAZOLE 500 MG/100 ML 500 MG/100 ML BAG IVPB SCH (17:55)
[2016-07-23] MEDS ORDERED: 0.9 % Sodium Chloride 500 ML IVC ONE (18:14)
--- NOTE | 2016-07-23 18:45 | General Surgery Consult Note ---
Date of Encounter: 07/23/16 Time of Encounter: 18:41 Assessment and Plan (1) Leg pain, right Current Visit: Yes Status: Acute I explained to the patient that personally reviewed the CT scan images as well as the report from the lower extreme ultrasound which were negative for DVT. I do not see any evidence of necrotizing fasciitis although there may be myositis involved. Overall I am very concerned about the patient's inability to dorsiflex her right foot and the pain in her anterior and posterior compartments upon palpation and dorsiflexion of the foot. I think it would be appropriate to have vascular surgery evaluate the patient for the possibility of a compartment issue with regards to the edema noted in the right leg greater than the left. I was able to contact the physician sponge buffer who will be evaluating the patient shortly. Thank you. History of Present Illness Consult date: 07/23/16 Reason for consult: other (right leg pain) Requesting physician: Ronnie Teran History of present illness: The patient is a 60-year-old female who was visiting hospital on 07/11/2016 due symptoms that appear to be consistent with an to atypical and pneumonia. She states that she has been having pain in her leg for many years and more symptoms of discomfort and pain in the right leg greater than the left. That yesterday while in the hospital she had the onset of increasing right lower extremity pain. She states that the pain is low the level of the right knee and extending circumferentially around down towards the ankle. She denies any trauma to the leg and states that although she has been having some discomfort over the past years she states that the pain is significantly acutely worse. She denies any falls over the past 24-48 hours. She has had studies including ultrasound to rule out DVT as well as CT scan of the right leg always call to vascular surgery about ruling in or out symptoms related to DVT. I been asked to evaluate the patient with regards to her right lower extremity persistent pain. Past Med Surg Social Fam HX - Past Medical History Medical history: atrial fibrillation, COPD, coronary artery disease, diabetes, GERD, hyperlipidemia, hypertension, myocardial infarction, RA, thyroid disease, TIA Psychiatric history: no psych history - Past Surgical History Surgical History: angioplasty/stent, coronary bypass (CABG), hysterectomy, thyroidectomy - Social History Smoking Status: Former smoker Packs per day: 1.5 Smokeless Tobacco Status: No Alcohol use: none Drug use: marijuana - Family History Mother Adopted: No Family Member Ethnicity: Non- Living Status: Hx Family Cardiac Disorders: Yes ( of [place]) Hx Family Respiratory Disorders: No Hx Family Cancer: Yes (breast ca) Hx Family GI Disorders: No Hx Family Endocrine Disorder: No Hx Family Neuromuscular Disorders: No Hx Family Neurologic Disorders: No Hx Family HEENT Disorders: No Hx Family Autoimmune Disorders: No Brother Living Status: Still Living Hx Family Cardiac Disorders: Yes Hx Family Respiratory Disorders: Yes Hx Family Cancer: Yes Hx Family Endocrine Disorder: Yes Hx Family Medical Disorders: Yes Medications and Allergies Clopidogrel [Plavix] 75 mg PO DAILY 06/10/15 [History] Cyclobenzaprine [Flexeril] 10 mg PO TID 06/10/15 [History] Gabapentin [Neurontin] 300 mg PO TID 06/10/15 [History] Insulin ASPART [NovoLOG] 21 unit SQ TIDWM 06/10/15 [History] Insulin Glargine [Lantus] 70 unit SQ HS 06/10/15 [History] Isosorbide DInitrate [Isosorbide Dinitrate] 30 mg PO BID 06/10/15 [History] Rosuvastatin [Crestor] 40 mg PO DAILY 06/10/15 [History] amLODIPine [Norvasc] 10 mg PO DAILY 06/10/15 [History] traMADol [Ultram] 50 mg PO QID 06/10/15 [History] Levothyroxine Sodium [Levoxyl] 125 mcg PO DAILY 02/01/16 [History] metFORMIN [Glucophage] 1,000 mg PO BID 02/01/16 [History] BuPROPion [Wellbutrin] 100 mg PO BID 03/20/16 [History] Fenofibrate 54 mg PO DAILY 03/20/16 [History] Hydralazine HCl 100 mg PO BID 03/26/16 [History] Omeprazole [PriLOSEC] 20 mg PO DAILY 03/26/16 [History] cloNIDine HCl [CloNIDine HCl] 0.2 mg PO BID #60 tablet 03/29/16 [Rx] Metoprolol [Lopressor] 100 mg PO BID 07/02/16 [History] Sennosides/Docusate Sodium [Senna Plus] 1 tab PO BID PRN 07/02/16 [History] Ferrous Sulfate 325 mg PO BIDWM #60 tablet. 07/03/16 [Rx] Losartan [Cozaar] 25 mg PO DAILY #30 tablet 07/03/16 [Rx] hydroCHLOROthiazide [Hydrochlorothiazide] 25 mg PO DAILY 07/11/16 [History] Allergies lisinopril Allergy (Verified 07/11/16 05:00) Swelling of Lip/Tongue/Throat Penicillins [PCN] Allergy (Verified 03/19/16 21:38) Hives Review of Systems All systems PM: reviewed and no additional remarkable complaints except as stated All systems PM: A 10-system review of systems was performed and is negative for pertinent findings except as documented above in the HPI. General Surgery Exam Initial Vital Signs Temp Resp BP 98.2 F 16 150/70 07/11/16 07:50 07/11/16 07:50 07/11/16 07:50 - General physical appearance well nourished, no distress - Neurologic Present: CN 2-12 grossly intact, normal coordination, normal sensation - Musculoskeletal Present: other (Right lower extremity has at least 1+ eating edema. There is pain with dorsiflexion of the right foot. There is pain with palpation of the entire right leg below the knee. There is also increasing pain with extension of the leg at the level of the knee. No areas of discoloration, erythema, or ecchymosis are evident. I am unable to appreciate any palpable DP or PT pulse due to the edema and pain. Additionally, I am unable to feel for popliteal pulse to to significant pain with palpation of the fossa.) Exam Initial Vital Signs Temp Resp BP 98.2 F 16 150/70 07/11/16 07:50 07/11/16 07:50 07/11/16 07:50 Results - Labs 07/23/16 16:09 07/23/16 05:02 Abnormal lab results WBC 38.0 K/mcL (4.3-11.1) H* 07/23/16 16:09 Hgb 10.9 g/dL (11.5-15.4) L 07/23/16 16:09 Hct 33.8 % (35.3-44.9) L 07/23/16 16:09 MCH 27.9 pg (28.0-33.3) L 07/23/16 16:09 RDW 18.1 % (11.5-14.5) H 07/23/16 16:09 Neutrophils # 34.9 K/mcL (1.6-8.9) H 07/23/16 16:09 Nucleated RBCs/100 WBC 0.1 /100 WBC (0) H 07/23/16 16:09 Hypersegmented Neuts Present (Not Present) A 07/23/16 05:02 Polychromasia 1+ (Not Present) A 07/23/16 16:09 Poikilocytosis 1+ (Not Present) A 07/14/16 04:24 Anisocytosis 1+ (Not Present) A 07/23/16 16:09 Microcytosis Present (Not Present) A 07/17/16 04:05 Stomatocytes 1+ (Not Present) A 07/14/16 04:24 ESR 37 mm/hr (0-15) H 07/23/16 16:09 APTT 17.6 Seconds (26.0-36.0) L 07/23/16 05:02 D-Dimer 6124 ng/mLFEU (0-500) H 07/23/16 05:02 Potassium 3.3 mEq/L (3.5-4.5) L 07/23/16 05:02 Carbon Dioxide 32 mEq/L (19-29) H 07/23/16 05:02 BUN 40 mg/dL (7-20) H 07/23/16 05:02 Creatinine 1.12 mg/dL (0.57-1.11) H 07/23/16 05:02 Est GFR (Non-Af Amer) 50 (> 60) L 07/23/16 05:02 BUN/Creatinine Ratio 36 (6-26) H 07/23/16 05:02 Glucose 147 mg/dL (70-99) H 07/23/16 05:02 Hemoglobin A1c 7.6 % (-5.6) H 07/11/16 12:05 Calculated Osmolality 306 (280-300) H 07/23/16 05:02 Lactic Acid 3.1 mmol/L (0.5-2.2) H 07/23/16 16:48 Total Bilirubin 1.4 mg/dL (0.2-1.2) H 07/21/16 03:24 Direct Bilirubin 0.7 mg/dL (0.0-0.5) H 07/21/16 03:24 AST 70 Units/L (5-34) H 07/21/16 03:24 ALT 73 Units/L (0-55) H 07/21/16 03:24 Creatine Kinase 211 Units/L (29-168) H 07/23/16 16:09 Troponin I 0.18 ng/mL (0-0.03) H* 07/12/16 01:06 C-Reactive Protein 213 mg/L (Less than 5) H 07/23/16 16:09 Serum Total Protein 5.9 g/dL (6.0-8.3) L 07/21/16 03:24 Albumin 2.8 g/dL (3.5-5.0) L 07/21/16 03:24 Albumin/Globulin Ratio 0.9 (1.1-2.2) L 07/21/16 03:24 TSH 0.072 mcIU/mL (0.350-4.840) L 07/15/16 02:58 PTH Intact 158.3 pg/ml (8.5-72.5) H 07/15/16 02:58 Urine Clarity Cloudy (Clear) A 07/13/16 21:00 Urine Protein 100 mg/dL (Neg-Trace) H 07/13/16 21:00 Urine Glucose (UA) >=1000 mg/dL (Normal) H 07/13/16 21:00 Urine Blood Moderate (Negative) H 07/13/16 21:00 Urine Microscopic WBC 3-5 per hpf (0-3) H 07/13/16 21:00 Ur Squamous Epith Cells Many per lpf (None-Few) H 07/13/16 21:00 Microalb/Creat Ratio 405 (0-30) H 07/13/16 21:00 Protein/Creatinin Ratio 1.12 mg/mg (0-0.20) H 07/13/16 21:00 Urine Total Protein 66 mg/dL (1-14) H 07/13/16 21:00 Fluid Appearance Cloudy (Clear) A 07/11/16 16:47 Vancomycin Trough 9.8 mcg/mL (10-20) L 07/13/16 10:43 CORINNE Screen DETECTED (None Detected) A 07/11/16 17:44 CORINNE Titer 1:1280 (<1:40) H 07/11/16 17:44 Myeloperoxidase Ab 44 AU/mL (0-19) H 07/11/16 17:44 ANCA IgG 1:5120 (<1:20) H 07/13/16 14:17 SS-A Ro 60 kDa Ab 71 AU/mL (0-40) H 07/13/16 16:45 Histone IgG Antibody 2.5 Units (0.0-0.9) H 07/19/16 07:48 Enterococcus sp PCR DETECTED (Not Detect) A 07/18/16 11:37 Peter/B-Vanco Res Genes DETECTED (Not Detect) A 07/18/16 11:37 Diabetes panel 07/23/16 Range/Units 05:02 Sodium 142 (136-145) mEq/L Potassium 3.3 L (3.5-4.5) mEq/L Chloride 99 (98-109) mEq/L Carbon Dioxide 32 H (19-29) mEq/L BUN 40 H (7-20) mg/dL Creatinine 1.12 H (0.57-1.11) mg/dL Glucose 147 H (70-99) mg/dL Calcium 9.4 (8.6-10.8) mg/dL Calcium panel 07/23/16 Range/Units 05:02 Calcium 9.4 (8.6-10.8) mg/dL Pituitary panel 07/23/16 Range/Units 05:02 Sodium 142 (136-145) mEq/L Potassium 3.3 L (3.5-4.5) mEq/L Chloride 99 (98-109) mEq/L Carbon Dioxide 32 H (19-29) mEq/L BUN 40 H (7-20) mg/dL Creatinine 1.12 H (0.57-1.11) mg/dL Glucose 147 H (70-99) mg/dL Calcium 9.4 (8.6-10.8) mg/dL Adrenal panel 07/23/16 Range/Units 05:02 Sodium 142 (136-145) mEq/L Potassium 3.3 L (3.5-4.5) mEq/L Chloride 99 (98-109) mEq/L Carbon Dioxide 32 H (19-29) mEq/L BUN 40 H (7-20) mg/dL Creatinine 1.12 H (0.57-1.11) mg/dL Glucose 147 H (70-99) mg/dL Calcium 9.4 (8.6-10.8) mg/dL All other labs normal. - Imaging Additional studies: CT of the right lower extremity on 07/23/2016 demonstrates diffuse subcutaneous edema nonspecific in nature. Upon personal visualization it appears that the gastrocnemius and soleus muscles are edematous. His were performed with and without contrast. No convincing signs of fasciitis. No signs of air in the soft tissues. No abscesses identified. Consult Discharge Plan - Plan Referrals: Con Vogt CNP [Advanced Practice Nurse] - 08/02/16 3:30 pm Aliyah Prado, MARK [Primary Care Provider] - (walk in facilities.. no need for an appointment.)
--- NOTE | 2016-07-23 20:11 | Vascular/Endovasc Consult Note ---
Date of Encounter: 07/23/16 Time of Encounter: 19:30 Assessment and Plan (1) Compartment syndrome Current Visit: Yes Status: Acute The patient currently reports significant right lower extremity pain. There appears to be an underlying diffuse cellulitis in the right lower extremity. She has tenderness to light touch and pain with passive and active motion. She has no evidence of an acute arterial or venous process by clinical exam, CT and venous imaging. Additionally, the patient is immune suppressed due to steroids and has a rising WBC count (currently 38.0) The patient is currently on Clindamycin and Daptomycin. She also has a recent history of VRE bacteremia. Her CT scan reveals evidence of inflamation down to the level of the fascia. Her clinical exam is equivalent fora compartment syndrome. The etiology of her compartment syndrome is uncertain at this time. However, due to her clinical findings, fasciotomy is recommended at this time. The risks, benefits and alternatives were discussed with the patient and all questions were answered. The patient expressed understanding and wishes to proceed. Given her WBC count , cellulitis and possible fasciitis, cultures and tissue will be sent. Qualifiers: Compartment syndrome type: non-traumatic Compartment syndrome location: lower extremity Laterality: right Qualified Code(s): M79.A21 - Nontraumatic compartment syndrome of right lower extremity (2) Cellulitis of right leg Current Visit: Yes Status: Acute (3) Hyperlipidemia Current Visit: Yes Status: Chronic Qualifiers: Hyperlipidemia type: unspecified Qualified Code(s): E78.5 - Hyperlipidemia , unspecified (4) Hypertension Current Visit: Yes Status: Chronic Qualifiers: Hypertension type: essential hypertension Qualified Code(s): I10 - Essential (primary) hypertension (5) Tobacco abuse Current Visit: No Status: Chronic (6) Chronic kidney disease, stage 3 Current Visit: Yes Status: Chronic - History of Present Illness Consult date: 07/23/16 Requesting physician: Iván Barakat Consult reason: Right leg pain and edema Chief complaint: Right leg swelling and pain History of present illness: Ms. Graham is a 60 year old female who was admitted to [facility] on 07/11/16 with respiratory failure, pneumonia and sepsis. This morning the patient complained of acutely worsening right lower extremity pain. She underwent a venous duplex , but she was unable to tolerate the discomfort. The patient then underwent a CT scan of the extremity including intravenous contrast. The CT scan did not reveal evidence of any acute vascular process. However, it was noted that the patient had evidence of inflammation at the level of the fascia. A repeat CT scan was performed without contrast that did not reveal significant changes. The patient was then seen by Dr. Barakat to evaluate for possible infectious etiology. He reported no evidence of fasciitis, but did states that the patient had evidence of compartment syndrome. He asked for vascular surgery to further evaluate the patient. At the time of examination, the patient states that she is generally comfortable, but has significant pain when she moves her right leg or if someone touches it. She denies any fevers or chills today. She denies any chest pain or shortness of breath. Past Med Surg Social Fam HX - Past Medical History Medical history: atrial fibrillation, COPD, coronary artery disease, diabetes, GERD, hyperlipidemia, hypertension, myocardial infarction, RA, thyroid disease, TIA Psychiatric history: no psych history - Past Surgical History Surgical History: angioplasty/stent, coronary bypass (CABG), hysterectomy, thyroidectomy - Social History Smoking Status: Former smoker Packs per day: 1.5 Smokeless Tobacco Status: No Alcohol use: none Drug use: marijuana - Family History Mother Adopted: No Family Member Ethnicity: Non- Living Status: Hx Family Cardiac Disorders: Yes ( of [place]) Hx Family Respiratory Disorders: No Hx Family Cancer: Yes (breast ca) Hx Family GI Disorders: No Hx Family Endocrine Disorder: No Hx Family Neuromuscular Disorders: No Hx Family Neurologic Disorders: No Hx Family HEENT Disorders: No Hx Family Autoimmune Disorders: No Brother Living Status: Still Living Hx Family Cardiac Disorders: Yes Hx Family Respiratory Disorders: Yes Hx Family Cancer: Yes Hx Family Endocrine Disorder: Yes Hx Family Medical Disorders: Yes Medications and Allergies Clopidogrel [Plavix] 75 mg PO DAILY 06/10/15 [History] Cyclobenzaprine [Flexeril] 10 mg PO TID 06/10/15 [History] Gabapentin [Neurontin] 300 mg PO TID 06/10/15 [History] Insulin ASPART [NovoLOG] 21 unit SQ TIDWM 06/10/15 [History] Insulin Glargine [Lantus] 70 unit SQ HS 06/10/15 [History] Isosorbide DInitrate [Isosorbide Dinitrate] 30 mg PO BID 06/10/15 [History] Rosuvastatin [Crestor] 40 mg PO DAILY 06/10/15 [History] amLODIPine [Norvasc] 10 mg PO DAILY 06/10/15 [History] traMADol [Ultram] 50 mg PO QID 06/10/15 [History] Levothyroxine Sodium [Levoxyl] 125 mcg PO DAILY 02/01/16 [History] metFORMIN [Glucophage] 1,000 mg PO BID 02/01/16 [History] BuPROPion [Wellbutrin] 100 mg PO BID 03/20/16 [History] Fenofibrate 54 mg PO DAILY 03/20/16 [History] Hydralazine HCl 100 mg PO BID 03/26/16 [History] Omeprazole [PriLOSEC] 20 mg PO DAILY 03/26/16 [History] cloNIDine HCl [CloNIDine HCl] 0.2 mg PO BID #60 tablet 03/29/16 [Rx] Metoprolol [Lopressor] 100 mg PO BID 07/02/16 [History] Sennosides/Docusate Sodium [Senna Plus] 1 tab PO BID PRN 07/02/16 [History] Ferrous Sulfate 325 mg PO BIDWM #60 tablet. 07/03/16 [Rx] Losartan [Cozaar] 25 mg PO DAILY #30 tablet 07/03/16 [Rx] hydroCHLOROthiazide [Hydrochlorothiazide] 25 mg PO DAILY 07/11/16 [History] Allergies lisinopril Allergy (Verified 07/11/16 05:00) Swelling of Lip/Tongue/Throat Penicillins [PCN] Allergy (Verified 03/19/16 21:38) Hives All Systems Review: A 10-system review of systems was performed and is negative for pertinent findings except as documented above in the HPI. - Constitutional Constitutional: no chills, no fever(s) - Cardiovascular Cardiovascular: no chest pain at rest, no dyspnea at rest - Vascular Vascular: lower extremity swelling, lower extremity discoloration Exam Vital Signs, Last 4 Hours Temp Pulse Resp BP Pulse Ox 07/23/16 17:22 97.5 F L 87 16 113/69 96 General: Present: Conversant HEENT: Present: Normocephaly, Trachea midline, Pupils equal Neck: Absent: JVD, Lymphadenopathy Cardiac: Present: Reg Rate and Rhythm Lungs: Present: Normal Breath Sounds Neuro: Present: Alert and responsive, Motor nerves grossly intact (motor does appear intact in the right lower extremity, however right dorsiflexion appears limited due to pain, patient has a positive celio's sign as well), Sensory nerves grossly intact Abdomen: Present: Soft, Non-tender. Absent: Masses Vascular: Present: Normal capillary refill, Pulse, normal (bilateral pedal signals are polyphasic with doppler.), Edema (2+ right lower extremity edema). Absent: Clubbing, Cyanosis Skin: Present: Other (skin is markedly tender on the right calf and goodman, diffuse mild erythema present on the right calf, no wound, mass, or fluctuance is present, no crepitance is noted, no lymphadenopathy noted) Musculoskeletal: Present: No Chest Wall Tenderness Consult Discharge Plan - Plan Referrals: Con Vogt CNP [Advanced Practice Nurse] - 08/02/16 3:30 pm Aliyah Prado CNP [Primary Care Provider] - (walk in facilities.. no need for an appointment.)
[2016-07-23] MEDS ORDERED: *HR* Succinylcholine 200 MG/10 ML VIAL IVP ONE (20:34)
[2016-07-23] MEDS ORDERED: *HR* Midazolam HCl 2 MG/2 ML VIAL ONE (20:34)
[2016-07-23] MEDS ORDERED: *HR* Propofol 200 MG/20 ML VIAL IVP ONE (20:34)
[2016-07-23] MEDS ORDERED: Lidocaine -MPF 2% 2 ML VIAL ONE (20:34)
[2016-07-23] MEDS ORDERED: *HR* FentaNYL (PF) 100 MCG/2 ML VIAL ONE (20:34)
--- NOTE | 2016-07-23 20:47 | Anesthesia Evaluation PreOp ---
Date of Encounter: 07/23/16 Time of Encounter: 20:45 - Past History Planned Operation: Right Lower Extremity Fasciotomy Cardiac History: MT, HTN, Hyperlipidemia, Arrhythmia (A-Fib), Cardiac Surgery ( CABG x3 in 2006), Cardiac Stent Pulmonary History: Former smoker, COPD, Other (acute on chronic respiratory failure with hypoxia, hemoptysis) DOUGH SHEETER History: TIA Other Medical History: Renal (CKD stage 3), Diabetes Type II, Thyroid, GERD, Other (RA) Anesthesia History: No Prior Anesthetic Complications, Past Anesthesia Alcohol Use: none Drug use: marijuana Medications and Allergies Clopidogrel [Plavix] 75 mg PO DAILY 06/10/15 [History] Cyclobenzaprine [Flexeril] 10 mg PO TID 06/10/15 [History] Gabapentin [Neurontin] 300 mg PO TID 06/10/15 [History] Insulin ASPART [NovoLOG] 21 unit SQ TIDWM 06/10/15 [History] Insulin Glargine [Lantus] 70 unit SQ HS 06/10/15 [History] Isosorbide DInitrate [Isosorbide Dinitrate] 30 mg PO BID 06/10/15 [History] Rosuvastatin [Crestor] 40 mg PO DAILY 06/10/15 [History] amLODIPine [Norvasc] 10 mg PO DAILY 06/10/15 [History] traMADol [Ultram] 50 mg PO QID 06/10/15 [History] Levothyroxine Sodium [Levoxyl] 125 mcg PO DAILY 02/01/16 [History] metFORMIN [Glucophage] 1,000 mg PO BID 02/01/16 [History] BuPROPion [Wellbutrin] 100 mg PO BID 03/20/16 [History] Fenofibrate 54 mg PO DAILY 03/20/16 [History] Hydralazine HCl 100 mg PO BID 03/26/16 [History] Omeprazole [PriLOSEC] 20 mg PO DAILY 03/26/16 [History] cloNIDine HCl [CloNIDine HCl] 0.2 mg PO BID #60 tablet 03/29/16 [Rx] Metoprolol [Lopressor] 100 mg PO BID 07/02/16 [History] Sennosides/Docusate Sodium [Senna Plus] 1 tab PO BID PRN 07/02/16 [History] Ferrous Sulfate 325 mg PO BIDWM #60 tablet. 07/03/16 [Rx] Losartan [Cozaar] 25 mg PO DAILY #30 tablet 07/03/16 [Rx] hydroCHLOROthiazide [Hydrochlorothiazide] 25 mg PO DAILY 07/11/16 [History] Allergies lisinopril Allergy (Verified 07/11/16 05:00) Swelling of Lip/Tongue/Throat Penicillins [PCN] Allergy (Verified 03/19/16 21:38) Hives - Meds/Allergy Pre-op Review Medications Reviewed: Yes Allergies Reviewed: Yes Beta Blockers on Current Med List: Yes If Beta Blockers taken, Date/Time (Last Dose taken): 07/23/2016 at 0756 Anesthesia Results - Labs 07/23/16 16:09 07/23/16 05:02 - Imaging EKG: report reviewed (07/11/2016 A-Fib with RVR, ST deviationand moderate T wave abnormality) Chest x-ray: report reviewed (07/20/2016 persistent but improving multifocal bilateral airspace opacities most suggestive of an atypical infectious process) Additional studies: 07/11/2016 Echo LVEF 60-65% hypokinesis of the basal inferior wall mild-moderate concentric LVH indeterminate diastolic function due to A-Fib severely dilated LA mild MR 2014 [facility] per cardiology consult 07/11/2016 occluded RCA and occluded 1st OM branch sequential CARTER to LAD and 1st diagonal branch was patent, but there was a competing flow SVG to 2nd OM branch was patent collaterals noted from LAD to distal RCA advised to continue medical therapy Anesthesia Exam Vital Signs/O2 Sat/Glucose, Most Recent Temp Pulse Resp BP Pulse Ox 97.5 F L 87 16 113/69 96 07/23/16 17:22 07/23/16 17:22 07/23/16 17:22 07/23/16 17:22 07/23/16 17:22 Blood Glucose* 85 Height: 5'6''/1.68 m Weight: 195 lbs/88.9 kg NPO (# of Hours): 8 Pain Scale: 8 (right leg) Pain Scale Used: Numeric (1 - 10) - HEENT Pupil (Motor): EOMI Teeth: Normal Oral Opening: Greater than 3 - DOUGH SHEETER LOC: Oriented DOUGH SHEETER Motor: Normal RUE, Normal LUE, Normal LLE, Normal Face, Deficit RLE DOUGH SHEETER Sensory: Normal: RUE, LUE, Face, Deficit: RLE, LLE - Cardiac Rhythm: Irregular Murmur: None - Pulmonary Breath Sounds: bilateral Clear Respiratory Effort: Symmetrical Anesthesia Assess/Plan ASA Score: 4, E Modified Blank Scale for Level of Consciousness: Cooperative, oriented, and tranquil Anesthetic Plan: General Monitoring Plan: Standard Monitors Recovery Plan: PACU
--- NOTE | 2016-07-23 21:50 | Event Note ---
Date of Encounter: 07/23/16 Time of Encounter: 09:35 Patients leg examined in holding area, new area of ecchymosis noted at distal right calf. Possible debridement discussed with the patient and questions were answered. The patient expressed understanding and wishes to proceed.
[2016-07-23] MEDS ORDERED: Clindamycin 900 MG/50 ML 900 MG/50 ML IV.SOLN IVPB ONE (21:58)
[2016-07-23 22:12] LABS: QuantiFERON Mitogen minus NIL 0.16 IU/mL; QuantiFERON-TB minus NIL 0.03 IU/mL (0.00-0.34)
--- NOTE | 2016-07-23 22:41 | Operative Note ---
Date of procedure: 07/23/16 Pre-op diagnosis: Right lower extremity compartment syndrome, possible fasciitis Post-op diagnosis: same Procedure: 1. Right leg 4 compartement fasciotomy. 2. Debridement of necrotic subcutaneous and subfascial tissue in the right lower extremity. Complications: None Anesthesia: BARRYA Surgeon: Clayton Lim Estimated blood loss (cc): 50 Specimen: Cultures of medial and lateral fascia, necrotic tissue Disposition: PACU Procedure in Detail: Indications: The patient is a 60 year old female with a history of VRE bacteremia who reported progressive pain and tenderness in the right leg. CT scan revealed evidence of inflammatory changes in the subcutaneous tissue and muscle fascia. The patients clinical exam was equivical for compartment syndrome. Fasciotomy with exploration was recommended. Procedure: The patient was identified and marked in the holding area. She was then taken to the operating room and place d in the supine position on the operating room table. After the induction of general endotracheal anesthesia, she was prepped and draped in the normal sterile fashion. A longitudinal incision was made on the lateral leg through the skin and subcutaneous tissue to the level of the fascia with a #15 blade. The fascia was noted to be intact and the subcutaneous tissue was adherent. The fascia was then incised towards the ankle and knee in both the anterior and lateral compartments. The muscle was stimulated with electrocautery and noted to be viable. No edema was noted in the lateral or anterior muscle compartments. Wound cultures were taken. Electrocautery was used along the wound for hemostasis. The wound was irrigated and the skin was reapproximated with woo. A longitudinal incision was then made along the medial leg with a #15 blade through the skin and subcutaneous tissue. The superficial posterior compartement was identified. A thin layer of necrotic fat was noted to be present over the muscle fascia. The skin excision was lengthened until this layer of tissue appeared healthy proximally and distally. Wound cultures were then obtained. The necrotic tissue was also debrided and sent for culture. The fascial was noted to be viable and intact deep to the necrotic layer. The fascia was incised and another thin layer of necrotic tissue was identified. This layer was excised and sent for specimen to pathology. The fascia was opened sharply along the entire length of the incision and extended beyond the incision proximally and distally. The muscle was stimulated with cautery and noted to be viable. The deep posterior compartment was then exposed. Again, a thin layer of necrotic tissue was encountered. This friable layer was excised as well and sent to pathology as specimen. The deep posterior compatment fascia was then opened lengthwise. The muscle fascia was stimulated with electrocautery and noted to be viable. There was no evidence of abscess other remaining nonviable tissue noted in the wound. The wound was irrigated with saline. A #7 YAMEL drain was then inserted through a separate stab incision and sutured in place. The subcutaneous tissue was again inspected and noted to be adherent to the fascia along the wound margins. Electrocautery was used to obtain hemostasis. The skin was then reapproximated with woo.
[2016-07-23] MEDS ORDERED: Naloxone 0.4 MG/ML INJ ONE (22:53)
--- NOTE | 2016-07-23 23:31 | Venous Imaging Report ---
LE Venous Duplex Patient Name:Norah Graham Order Number:[id number] Procedure Date:07/23/2016 Date:6Age:60 yrs Gender:Female Location:[facility] Room #: 2A23 Sales And Merchandising Associate:Ace Jackson RDCS Referring MD:Parker Ruiz MD bottle caser:Aliyah Prado, GAS ENGINEER Reading MD:Clayton Lim MD Study Quality:Technically Difficult Primary Indications:Leg pain and swelling Secondary Indications: Risk Factors Yes/No Anticoagulants Yes Impressions: No evidence of deep or superficial thrombosis in the right lower extremity. Incomplete visualization of the right tibial veins due to patient discomfort. Normal contralateral common femoral vein. Recommendations: Consider further imaging if clinically indicated. After imaging the patient returned to their room. Pt unable to tolerate exam below the knee. Critical findings reported to Nicci in person by Ace Jackson RDCS. Findings Venous Duplex Results: Right: Venous imaging of the lower extremity reveals full patency and normal vessel compressibility of the right distal iliac, right common femoral, right superficial femoral, right popliteal, right posterior tibial, right great saphenous and right lesser saphenous. Doppler signals in the evaluated veins were normal. The right peroneal vein was not assessed. Below the knee was putting the pt in very much pain. Pt told me to stop and she could not take it anymore. Unable to image Peroneal Veins. Left: Venous imaging of the lower extremity reveals full patency and normal vessel compressibility of the left common femoral. Doppler signals in the evaluated veins were normal. Lower Extremity Venous Duplex Side Vein Compress Spontaneous Flow Augment Diameter (cm) Depth (cm) Right Distal Iliac Normal Yes Phasic Yes Right Common Femoral Normal Yes Phasic Yes Right Superficial Femoral Normal Yes Phasic Yes Right Popliteal Normal Yes Phasic Yes Right Posterior Tibial Normal Yes Phasic Yes Right Peroneal Right Great Saphenous Normal Yes Phasic Yes Right Lesser Saphenous Normal Yes Phasic Yes Left Common Femoral Normal Yes Phasic Yes Updated by Clayton Lim MD on 07/23/2016 8:51:19 PM electronically signed on 07/23/2016 11:27:19 PM with status of Final
--- NOTE | 2016-07-23 23:31 | Anesthesia Evaluation Post Op ---
Date of Encounter: 07/23/16 Time of Encounter: 23:31 - Vital Signs Vital Signs: Vital Signs/O2 Sat, Most Current Temp Pulse Resp BP Pulse Ox 96.9 F L 84 18 165/66 100 07/23/16 22:55 07/23/16 22:55 07/23/16 22:55 07/23/16 22:55 07/23/16 22:55 - Lungs Lungs: Clear Ascult./Percussion - Airway Airway: Non-obstructed - Cardiovascular Irregular Rate, Baseline Rhythm - Mental Status Mental Status: Asleep with brisk response to light stimulation - Pain Pain Scale: 0 Pain Scale used: Numeric (1 - 10) - Nausea Vomiting Nausea Vomiting: Not Present - Hydration Hydration: NPO, Has not voided - Discharge PostOp Status: Transfer Patient to floor
[2016-07-24] MEDS: Insulin LISPRO 300 UNITS/3 ML VIAL SQ SCH ×8 (00:02→21:06)
[2016-07-24] MEDS: *HR* Acetylcysteine 20% 600 MG/3 ML ORAL SYRINGE PO SCH ×3 (00:19→20:54)
[2016-07-24] MEDS: Insulin DETEMIR 100 UNIT/ML X5UNITS SQ SCH ×2 (00:49→09:07)
[2016-07-24] MEDS: MetroNIDAZOLE 500 MG/100 ML 500 MG/100 ML BAG IVPB SCH ×5 (01:04→22:37)
[2016-07-24] MEDS: *HR* OxyCODONE/APAP 10/325 TABLET PO PRN ×4 (01:12→22:36)
[2016-07-24 05:22] LABS: Acinetobacter baumannii by PCR Not Detected (Not Detect); Candida albicans by PCR Not Detected (Not Detect); Candida glabrata by PCR Not Detected (Not Detect); Candida krusei by PCR Not Detected (Not Detect); Candida parapsilosis by PCR Not Detected (Not Detect); Candida tropicalis by PCR Not Detected (Not Detect); Enterococcus by PCR ***DETECTED*** (Not Detect); Escherichia coli by PCR Not Detected (Not Detect); Klebsiella oxytoca by PCR Not Detected (Not Detect); Klebsiella pneumoniae by PCR Not Detected (Not Detect); Pseudomonas aeruginosa by PCR Not Detected (Not Detect); Serratia marcescens by PCR Not Detected (Not Detect); Staphylococcus aureus by PCR Not Detected (Not Detect); Streptococcus agalactiae(B)PCR Not Detected (Not Detect); Streptococcus by PCR Not Detected (Not Detect); Streptococcus pneumoniae PCR Not Detected (Not Detect); Streptococcus pyogenes (A) PCR Not Detected (Not Detect); vanA/B Vancomycin-Resist Genes ***DETECTED*** (Not Detect)
[2016-07-24] MEDS: Diltiazem CD (24hr) 180 MG CAPSULE PO SCH (05:38)
[2016-07-24 06:01] LABS: Basophils % 0.1 %; Segmented Neutrophils % 91.3 %
[2016-07-24 06:03] LABS: Hematocrit 29.4 % (35.3-44.9); Hemoglobin 9.2 g/dL (11.5-15.4); Immature Granulocytes % 1.3 % (0-4); Lymphocytes # 1.1 K/mcL (0.6-4.6); Mean Corpuscular HGB Conc 31.3 g/dL (31.6-35.5); Mean Corpuscular Hemoglobin 27.5 pg (28.0-33.3); Mean Corpuscular Volume 87.8 fL (83.0-100.0); Mean Platelet Volume 10.2 fL (9.4-12.4); Monocytes # 0.9 K/mcL (0.0-1.3); Monocytes % 3.3 %; Neutrophils # 25.4 K/mcL (1.6-8.9); Platelet Count 174 K/mcL (140-400); Red Blood Count 3.35 M/mcL (3.82-4.97); Red Cell Distribution Width 18.5 % (11.5-14.5)
[2016-07-24 06:18] LABS: Alanine Aminotransferase 50 Units/L (0-55); Albumin 2.2 g/dL (3.5-5.0); Albumin/Globulin Ratio 0.6 (1.1-2.2); Alkaline Phosphatase 55 Units/L (38-126); Aspartate Amino Transferase 27 Units/L (5-34); BUN/Creatinine Ratio 29 (6-26); Bilirubin,Direct 0.7 mg/dL (0.0-0.5); Bilirubin,Indirect 0.5 mg/dL (0.0-1.2); Bilirubin,Total 1.2 mg/dL (0.2-1.2); Blood Urea Nitrogen 31 mg/dL (7-20); Calcium 9.3 mg/dL (8.6-10.8); Carbon Dioxide 33 mEq/L (19-29); Chloride 102 mEq/L (98-109); Creatine Kinase 173 Units/L (29-168); Globulin 3.5 g/dL (2.4-3.5); Glucose 46 mg/dL (70-99); Magnesium 1.5 mg/dL (1.6-2.6); Osmolality,Calculated 302 (280-300); Potassium 4.3 mEq/L (3.5-4.5); Sodium 144 mEq/L (136-145); Total Protein 5.7 g/dL (6.0-8.3); eGFR For African Americans > 60 (> 60); eGFR For Non-African Americans 52 (> 60)
[2016-07-24 06:38] LABS: Anisocytosis 1+ (Not Present); Platelet Estimate Normal (Normal); Polychromasia 1+ (Not Present)
[2016-07-24 07:49] LABS: QuantiFERON NIL 0.03 IU/mL; QuantiFERON-TB Gold In-Tube INDETERMINATE (Negative)
[2016-07-24] MEDS ORDERED: Magnesium Sulfate 2 GM in D5% in Water 100 ML IVPB ONE (08:20)
--- NOTE | 2016-07-24 08:34 | Vascular/Endovas Progress Note ---
Date of Encounter: 07/24/16 Time of Encounter: 08:05 - Assessment and plan (1) Compartment syndrome Current Visit: Yes Status: Acute The patient underwent a right lower extremity 4 compartment fasciotomy last night due to compartment syndrome secondary to fasciitis of an infectious etiology. The patient is subjectively improved. Her WBC has improved. She continues to show no evidence of vascular compromise. Her bandage will be left in place and her drain will also be left in today. Await culture and pathology reports. Patient has gram positive rods growing in blood cultures that were drawn prior to surgery. She remains afebrile. Qualifiers: Compartment syndrome type: non-traumatic Compartment syndrome location: lower extremity Laterality: right Qualified Code(s): M79.A21 - Nontraumatic compartment syndrome of right lower extremity (2) Infectious fasciitis Current Visit: Yes Status: Acute (3) Cellulitis of right leg Current Visit: Yes Status: Acute (4) Hyperlipidemia Current Visit: Yes Status: Chronic Qualifiers: Hyperlipidemia type: unspecified Qualified Code(s): E78.5 - Hyperlipidemia , unspecified (5) Hypertension Current Visit: Yes Status: Chronic Qualifiers: Hypertension type: essential hypertension Qualified Code(s): I10 - Essential (primary) hypertension (6) Tobacco abuse Current Visit: No Status: Chronic (7) Chronic kidney disease, stage 3 Current Visit: Yes Status: Chronic - Subjective Interval history: Patient reports that her right leg feels much better today. She still has some pain and tenderness, but it has decreased. She denies fevers or chills. She denies chest pain or shortness of breath. Vital Signs, Last 4 Hours Temp Pulse Resp BP Pulse Ox 07/24/16 07:21 98.0 F 92 20 160/71 95 07/24/16 05:02 97.8 F 71 18 175/88 95 - Physical Examination General: Present: Conversant, No Apparent Distress HEENT: Present: Pupils equal Cardiac: Present: No Murmur Lungs: Present: Normal Breath Sounds Neuro: Present: Alert and responsive, No focal deficits noted Vascular: Present: Pulse, normal, Edema (1+ edema in the right ankle) Skin: Present: Other (tendeness at right leg noted, bandage dry, no hematoma, no fluctuance, no odor. Drain has serosanguinous fluid.) - VTE Documentation of Mechanical Device: Graduated compression elastic hosiery Results 07/24/16 05:04 07/24/16 05:04 Lab Results, Last 24 hours 07/23/16 07/24/16 07/24/16 16:09 05:04 05:04 WBC 38.0 H* 27.8 H Hgb 10.9 L 9.2 L D Hct 33.8 L 29.4 L Plt Count 231 174 Sodium 144 Potassium 4.3 D Chloride 102 Carbon Dioxide 33 H BUN 31 H Creatinine 1.08 Glucose 46 L Calcium 9.3 Magnesium 1.5 L Total Bilirubin 1.2 AST 27 ALT 50 Alkaline Phosphatase 55 Consult Discharge Plan - Plan Referrals: Con Vogt CNP [Advanced Practice Nurse] - 08/02/16 3:30 pm Aliyah Prado CNP [Primary Care Provider] - (walk in facilities.. no need for an appointment.)
[2016-07-24] MEDS: Isosorbide MONOnitrate (24 HR) 60 MG TAB.ER.24H PO SCH (09:06)
[2016-07-24] MEDS: predniSONE 20 MG TABLET PO SCH (09:06)
--- NOTE | 2016-07-24 09:12 | Rheumatology Progress Note ---
<Jluis Sanders - Last Filed: 07/24/16 09:52> Date of Encounter: 07/24/16 Time of Encounter: 08:50 Rheumatology Assess and Plan (1) Gram-positive cocci bacteremia Current Visit: Yes Status: Acute Patient had spike in WBC to 38.0 over the weekend. She was found to have fasciitis of infectious etiology with compartment syndrome. She underwent a fasciotomy on Sunday. Blood cultures drawn on 07/23/16 were preliminarily positive for gram positive rods x2. Previously shown to have VRE bacteremia. She is currently on clindamycin, daptomycin, and metronidazole. WBC have improved since her fasciotomy. Continued management per primary team and infectious disease (2) Diffuse pulmonary alveolar hemorrhage Current Visit: Yes Status: Acute Patient has been doing well, from a lung standpoint on 80 mg prednisone over the weekend, having had a decreased oxygen usage since she started this dose of medication. Over the weekend she was found to have compartment syndrome in her left LE, from fasciitis of an infectious etiology. She underwent a fasciotomy last night. She has continued to have positive blood cultures and she was started on daptomycin, metronidazole, and clindamycin. Patient found to have p-ANCA and MPO antibodies, suggesting microscopic polyangiitis, that appears to be isolated to the lungs. Will reduce patient PO prednisone to 60 mg and follow patient status more remotely until greater resolution of her current problems have resolved Will hold rituximab until resolution of patient acute medical concerns are resolved (3) P-ANCA and MPO antibodies positive Current Visit: Yes Status: Acute Elevation in patient in p-ANCA and MPO antibodies are suggestive of microscopic polyangitis. Plan as above (4) Infectious fasciitis Current Visit: Yes Status: Acute As above (5) Renal insufficiency Current Visit: Yes Status: Acute Patient's renal function has improved and remained stable. She does have history of atrial fibrillation and uncontrolled diabetes mellitus, but patient is p-ANCA positive with anti-MPO antibodies present, but no crescents seen on preliminary renal biopsy. Vasculitis likely not affecting patient kidneys Anti-GBM antibody is negative Further plan as above Nephrology is following and appreciate recommendations for continued management/ care Continue to monitor renal function with daily chemistry Avoid nephrotoxic agents if possible (6) Diabetes mellitus type 2, uncontrolled Current Visit: Yes Status: Chronic Patient blood sugars will continue to require close monitoring given her continued need of glucocorticoids. Qualifiers: Diabetes mellitus complication status: with neurologic complications Diabetes mellitus complication detail: with unspecified neuropathy Diabetes mellitus intermediate frame tender insulin use: with intermediate frame tender use Qualified Code(s): E11.40 - Type 2 diabetes mellitus with diabetic neuropathy, unspecified; E11.65 - Type 2 diabetes mellitus with hyperglycemia; Z79.4 - custodial (current) use of insulin - Subjective Interval history: Patient reports feeling better today, with less pain than yesterday. She reports that she does have some continued discomfort in her leg, both foot and thigh. She denies any problem breathing and reprots continuing to cough up a "black" substance, but denies any roberto hemoptysis. Review of systems: Gen.: Denies fever/chills HEENT: Denies sore throat, Resp: Denies shortness of breath, mild cough productive of black substance CV: Denies chest pain GI: Appetite good, no N/V, denies abdominal pain Skin: Denies rashes MSK: reports some tenderness in her right lower extremity Exam Vital Signs, Last 4 Hours Temp Pulse Resp BP Pulse Ox 07/24/16 07:21 98.0 F 92 20 160/71 95 Exam: General: Cooperative, pleasant, no acute distress, alert and oriented 3, answers questions appropriately, on 4 L supplemental oxygen HEENT: Normocephalic, atraumatic, oral mucosa moist, small wound on left distal tongue Respiratory: No accessory muscle usage, CTA b/l Cardiovascular: Regular rate and rhythm, S1 and S2 present, no murmurs/rubs/ gallops/clicks appreciated Extremities: noncyanotic, 1+ pedal edema on right, mild edema on left, slightly cool to touch, lower extremity pulses palpable Neurological: Alert and oriented 3, no facial droop, no focal deficits Skin: Dry, intact, normal color Objective Data 07/24/16 05:04 07/24/16 05:04 Immunology Rheumatoid Factor < 15 IU/mL (0-29) 07/11/16 17:44 Cycl Citrul Peptide IgG 12 Units (0-19) 07/11/16 17:44 CORINNE Screen DETECTED (None Detected) A 07/11/16 17:44 CORINNE Titer 1:1280 (<1:40) H 07/11/16 17:44 Myeloperoxidase Ab 44 AU/mL (0-19) H 07/11/16 17:44 ANCA IgG 1:5120 (<1:20) H 07/13/16 14:17 SS-A/Ro 52 kDa Ab 2 AU/mL (0-40) 07/13/16 16:45 SS-A Ro 60 kDa Ab 71 AU/mL (0-40) H 07/13/16 16:45 SS-B/La Antibody 0 AU/mL (0-40) 07/13/16 16:45 Sm (Mcdowell) IgG Ab, Quant 0 AU/mL (0-40) 07/13/16 16:45 Scl-70 IgG Ab 0 AU/mL (0-40) 07/11/16 17:44 Anti-U1-CHAIRPERSON ANESTHESIOLOGY IgG, Quant 0 AU/mL (0-40) 07/13/16 16:45 Histone IgG Antibody 2.5 Units (0.0-0.9) H 07/19/16 07:48 Glomerular Base Mem IgG 0 AU/mL (0-19) 07/13/16 14:17 Glomer Base Mem IgG IFA NEGATIVE (Negative) 07/13/16 14:17 Serine Protease 3 Ab 5 AU/mL (0-19) 07/11/16 17:44 Complement C3 138 mg/dL (88-201) 07/11/16 17:44 Complement C4 22 mg/dL (10-40) 07/11/16 17:44 - VTE Documentation of Mechanical Device: Graduated compression elastic hosiery Consult Discharge Plan - Plan Referrals: Con Vogt CNP [Advanced Practice Nurse] - 08/02/16 3:30 pm Aliyah Prado CNP [Primary Care Provider] - (walk in facilities.. no need for an appointment. Patient will go to rehab upon discharge) <Amrit Cai - Last Filed: 07/24/16 17:29> Date of Encounter: 07/24/16 Rheumatology Assess and Plan (1) Diffuse pulmonary alveolar hemorrhage Current Visit: Yes Status: Acute (2) Renal insufficiency Current Visit: Yes Status: Acute (3) CORINNE positive Current Visit: Yes Status: Acute (4) Proteinuria Current Visit: Yes Status: Chronic Qualifiers: Proteinuria type: isolated Isolated proteinuria type: with unspecified morphologic lesion Qualified Code(s): N06.9 - Isolated proteinuria with unspecified morphologic lesion (5) Diabetes mellitus type 2, uncontrolled Current Visit: Yes Status: Chronic Qualifiers: Diabetes mellitus complication status: with neurologic complications Diabetes mellitus complication detail: with unspecified neuropathy Diabetes mellitus intermediate frame tender insulin use: with halfway use Qualified Code(s): E11.40 - Type 2 diabetes mellitus with diabetic neuropathy, unspecified; E11.65 - Type 2 diabetes mellitus with hyperglycemia; Z79.4 - custodial (current) use of insulin Exam Vital Signs, Last 4 Hours Temp Pulse Resp BP Pulse Ox 07/24/16 15:48 98.1 F 94 19 163/71 94 07/24/16 14:25 85 17 139/62 93 Objective Data 07/24/16 05:04 07/24/16 05:04 Immunology Rheumatoid Factor < 15 IU/mL (0-29) 07/11/16 17:44 Cycl Citrul Peptide IgG 12 Units (0-19) 07/11/16 17:44 CORINNE Screen DETECTED (None Detected) A 07/11/16 17:44 CORINNE Titer 1:1280 (<1:40) H 07/11/16 17:44 Myeloperoxidase Ab 44 AU/mL (0-19) H 07/11/16 17:44 ANCA IgG 1:5120 (<1:20) H 07/13/16 14:17 SS-A/Ro 52 kDa Ab 2 AU/mL (0-40) 07/13/16 16:45 SS-A Ro 60 kDa Ab 71 AU/mL (0-40) H 07/13/16 16:45 SS-B/La Antibody 0 AU/mL (0-40) 07/13/16 16:45 Sm (Mcdowell) IgG Ab, Quant 0 AU/mL (0-40) 07/13/16 16:45 Scl-70 IgG Ab 0 AU/mL (0-40) 07/11/16 17:44 Anti-U1-CHAIRPERSON ANESTHESIOLOGY IgG, Quant 0 AU/mL (0-40) 07/13/16 16:45 Histone IgG Antibody 2.5 Units (0.0-0.9) H 07/19/16 07:48 Glomerular Base Mem IgG 0 AU/mL (0-19) 07/13/16 14:17 Glomer Base Mem IgG IFA NEGATIVE (Negative) 07/13/16 14:17 Serine Protease 3 Ab 5 AU/mL (0-19) 07/11/16 17:44 Complement C3 138 mg/dL (88-201) 07/11/16 17:44 Complement C4 22 mg/dL (10-40) 07/11/16 17:44 All other labs normal. - Attending Attestation I examined this patient and my medical decision making was reviewed with the resident physician. I agree with the documented findings, disposition and treatment as described with these exceptions. Patient had compartment syndrome over the weekend now s/p fasciotomy. Gram positive rods in blood cultures, ID following At this time, case is complex and while I do still suspect an underlying vasculitis, a more aggressive treatment will be on hold. I did discuss the case with infectious disease to see if they have an infectious source that could explain some of her manifestations and this appears to be unclear right now. Given complexity, comorbidities and infections, decrease prednisone to 60 mg po daily. Will continue to follow peripherally and call to be seen sooner if needed.
[2016-07-24] MEDS: *HR* HYDROcodone/Acet 5/325 mg TABLET PO PRN ×2 (09:15→20:54)
--- NOTE | 2016-07-24 11:22 | Nephrology Progress Note ---
Date of Encounter: 07/24/16 Time of Encounter: 08:45 - Assessment and Plan (1) Hypertension Current Visit: Yes Status: Chronic Bp 182/83, 195/90, 175/88, 160/71, rates 71-94bpm. Uncontrolled. Elevations of bp may be related to pain. Continue to monitor bp Goal bp <150/90 Continue with Clonidine 0.3mg patch, Continue with Metoprolol 50mg bid. Caution advised due to possible bradycardia with combination with Cardizem. Continue cardizem 180mg qd. Continue Lasix 40mg qd. Restart losartan 25mg qd. Continue monitoring BMP and bp Continue with renal protective strategy, avoid nephrotoxins. No urgent dialysis at this time. Continue to monitor patient's blood pressure. Qualifiers: Hypertension type: essential hypertension Qualified Code(s): I10 - Essential (primary) hypertension (2) Leg pain, right Current Visit: Yes Status: Acute Patient diagnosed with Right leg compartment syndrome. Underwent fasciotoomy and debridement of necrotic subcutaneous and subfascial tissue last night. Patient has drain in place. WBC 27.8, downd from 38.0 yesterday, Doppler and CT were negative for DVT. CT revealed possible evidence of inflammation down to the level of the fascia. Continue per Hospitalist plan. (3) Chronic kidney disease, stage 3 Current Visit: Yes Status: Chronic Patient with known history of CKD stage III. Function continues improving, currently at baseline BUN 31, Cr 1.08 Continue to monitor I&O Gentle fluid hydration Continue monitoring labs Continue with renal protective strategy, avoid nephrotoxic agents. (4) Proteinuria Current Visit: Yes Status: Chronic Continue to monitor and improve bp, goal <150/90. CORINNE positive, ANCA positive, MPO positive, GBM negative. 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 Final report renal biopsy returned findings suggestive of longstanding chronic hypertension and diabetes, no vasculitis. High dose steroids x3 days completed. Defer additional immunological management to Rheumatology and Pulmonology as this appears not to be affecting directly the kidneys based on renal biopsy results. Rheumatology plan to continue 80mg oral prednisone qd. Continue with renal protective strategy, avoid nephrotoxic agents. No urgent dialysis at this time. Continue following labs. Qualifiers: Proteinuria type: isolated Isolated proteinuria type: with unspecified morphologic lesion Qualified Code(s): N06.9 - Isolated proteinuria with unspecified morphologic lesion (5) Gram-positive cocci bacteremia Current Visit: Yes Status: Acute Blood cultures x2 drawn 07/17/16 growing gram positive cocci. Enterococcus with vancomycin resistance. Infectious Disease following patient. Patient currently on Clindamycin, Daptomycin, and Flagyl. Avoid nephrotoxic agents, continue with renal protective strategy. (6) Gram positive bacterial infection Current Visit: Yes Status: Acute Blood cultures 07/23/16 growing gram positive rods. Continue per plan of Hospitalist. On Clindamycin, Daptomycin, and Flagyl. (7) CORINNE positive Current Visit: Yes Status: Acute CORINNE titer 1:1280 (previously negative in 2015) Rheumatology on board. (8) P-ANCA and MPO antibodies positive Current Visit: Yes Status: Acute ANCA positive 1:5120 SS-A/Ri 60kDa Ab positive at 71, MPO Ab positive at 44. Rheumatology on board. Quantiferon Gold TB received, pending results. HIV negative. (9) Hematuria Current Visit: Yes Status: Acute Hematuria noted on this hospital visit UA, change from prior Urine studies in 2014 which were negative for blood. Continue per plan in assessment above. (10) Diabetes mellitus type 2, uncontrolled Current Visit: Yes Status: Chronic Known history of type II diabetes uncontrolled on snf insulin, receiving high dose steroids. Continue monitoring. Continue per Hospitalist plan. Diet: Diabetic, Cardiac, Renal. Qualifiers: Diabetes mellitus complication status: with neurologic complications Diabetes mellitus complication detail: with unspecified neuropathy Diabetes mellitus snf insulin use: with snf use Qualified Code(s): E11.40 - Type 2 diabetes mellitus with diabetic neuropathy, unspecified; E11.65 - Type 2 diabetes mellitus with hyperglycemia; Z79.4 - superintendent container terminal (current) use of insulin (11) Diffuse pulmonary alveolar hemorrhage Current Visit: Yes Status: Acute Preliminary read of renal biopsy revealed no crescents or ANCA associate vasculitis findings. 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 Incentive spirometry, patient requiring 5L nasal cannula. May require social work to set up home oxygen as needed. Continue per plan of Hospitalist. (12) Anemia Current Visit: Yes Status: Acute Patient with known history of anemia. Normocytic anemia upon review of labs. Hb 9.3 on arrival to [place] ED. Hb at 9.2 this morning. Continue to monitor labs Qualifiers: Anemia type: unspecified type Qualified Code(s): D64.9 - Anemia, unspecified Subjective Principal diagnosis: hemoptysis Interval history: Patient reports doing well overnight, underwent fasciotomy for right leg compartment syndrome with debridement overnight. Patient continues to reports coughing up small specks of dark black blood. Reports continued shortness of breath, but much improved, still requiring 5L oxygen to maintain sats. Patient denies fevers, chills, sweats, nausea, vomiting, headaches, lightheadedness, changes in bowels or bladder, hematuria, dysuria, weakness, or loss of sensation. Bp 182/83, 195/90, 175/88, 160/71, rates 71-94. Cr down to 1.08, from 1.12 yesterday. Objective - Vital Signs Vital signs: Vital Signs Temp Pulse Resp BP Pulse Ox 07/24/16 07:21 98.0 F 92 20 160/71 95 07/24/16 05:02 97.8 F 71 18 175/88 95 07/24/16 01:01 195/90 07/24/16 00:15 98.4 F 94 16 182/83 98 07/24/16 00:00 98.6 F 86 15 146/70 96 07/23/16 23:46 97.9 F 91 16 140/61 95 07/23/16 23:45 98.9 F 99 16 139/57 90 07/23/16 23:15 91 16 161/66 95 07/23/16 23:05 83 16 154/59 95 07/23/16 22:55 96.9 F L 84 18 165/66 100 07/23/16 17:22 97.5 F L 87 16 113/69 96 07/23/16 12:16 98.2 F 84 16 132/61 97 Intake and Output 07/23/16 07/24/16 07/24/16 23:59 07:59 15:59 Intake Total 700 / 700 100 / 100 240 / 240 Output Total 50 / 50 Balance 650 / 650 100 / 100 240 / 240 Intake: IV Fluids 700 / 700 100 / 100 0.9 % Sodium Chloride 500 500 / 500 ML @ 1875 mls/hr IVC . Q16M ONE Rx#:[id number] Cubicin 540 MG In 0.9 % 100 / 100 Sodium Chloride 100 ML @ 200 mls/hr IVPB Q24H [facility] Rx#:[id number] Flagyl Premix 500 MG/100 100 / 100 100 / 100 ML 500 mg In 100 ml @ 100 mls/hr IVPB Q6H [facility] Rx#: [id number] Oral 240 / 240 Tube Feeding 0 / 0 Other 0 / 0 Intake, Autotransfusion 0 / 0 Amount Free Water 0 / 0 Output: Estimated Blood Loss 50 / 50 Other: Meal Breakfast Percent of Meal Consumed 100% Weight 90.2 kg Blood Glucose* 73 125 Patient Weight 07/24/16 23:59 Weight 90.2 kg - General Appearance General appearance: Present: well-developed, well-nourished, appears started age , obese, chronically ill EENT: Present: PERRL, mucous membranes moist Neck: Present: no JVD, no carotid bruit, supple Respiratory: Present: clear Cardiology: Present: no murmurs, no edema, regular rate, regular rhythm, normal S1, normal S2 Gastrointestinal: Present: normoactive bowel sounds, no tenderness, no guarding Integumentary: Present: no rash, warm and dry Additional Comments: right lower extremity drain with serosanguinous fluid. Neurologic: Present: no focal deficit, no asterixis, alert and oriented x3, strength 5/5, CN 3-12 intact Musculoskeletal: Present: no deformities, no erythema, no cyanosis, no clubbing Additional Comments: 2+ pitting edema right lower extremity, sensation intact, moves toes when prompted. Psychiatric: Present: mood/affect appropriate, cooperative - Lab 07/24/16 05:04 07/24/16 05:04 Most recent lab results Calcium 9.3 mg/dL (8.6-10.8) 07/24/16 05:04 Magnesium 1.5 mg/dL (1.6-2.6) L 07/24/16 05:04 Urine Creatinine 59 mg/dL 07/13/16 21:00 Urine Total Protein 66 mg/dL (1-14) H 07/13/16 21:00 - VTE Documentation of Mechanical Device: Graduated compression elastic hosiery Consult Discharge Plan - Plan Referrals: Con Vogt CNP [Advanced Practice Nurse] - 08/02/16 3:30 pm Aliyah Prado CNP [Primary Care Provider] - (walk in facilities.. no need for an appointment. Patient will go to rehab upon discharge)
[2016-07-24] MEDS ORDERED: Clindamycin 900 MG/50 ML 900 MG/50 ML IV.SOLN IVPB SCH ×2 (12:00→17:10)
[2016-07-24] MEDS: CloNIDine Patch 0.3 MG PATCH (WEEKLY) TD SCH (13:31)
--- NOTE | 2016-07-24 14:25 | Internal Med Progress Note ---
Date of Encounter: 07/24/16 Time of Encounter: 09:00 - Assessment and plan (1) Diffuse pulmonary alveolar hemorrhage Current Visit: Yes Status: Acute Assessment and plan: 07/23/16. 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 Continue with prednisone 80 mg daily. Bacteremia, antibiotics according to recommendations by our infectious disease team. Pain and tenderness right lower extremity, overnight pain got worse and was started on heparin drip due to positive d-dimer and erythema with increased temperature in the above-mentioned area. A venous duplex was requested, due to severe pain the study could not be completed in its entirety, evaluation of deep venous system below the knee was not fully performed. Therefore, a deep venous thrombosis could not be completely ruled out. In this setting, I discussed the case with the radiologist, I ordered a CT of the lower extremity with IV contrast, a venogram CT. The patient however has a chronic kidney disease with a GFR of 50. I discussed this scenario with our twisting operator, he recommended to stop the Lasix, stop the lisinopril, give Mucomyst and sodium bicarbonate. Patient has risk of bleeding due to her alveolar hemorrhage, we need to rule out a deep venous thrombosis, if a DVT is positive patient will benefit from an IVC filter. CPK levels decreased compared to yesterday. Will continue monitoring her cpk levels, if elevated 5 times above upper limit will d/c daptomycin. Mild hypokalemia. Glucose that better this morning. Continue with insulin therapy. Worsening leukocytosis, patient on daptomycin due to VRE bacteremia. 07/24/16. Patient does not have hemoptysis today. She continues on by mouth steroids as recommended by rheumatology. Shee still requires oxygen supplementation. No other interventions at this point due to concomitant infections, bacteremia and status post fasciotomy due to compartment syndrome and fasciitis. (2) Fasciitis Current Visit: Yes Status: Acute Assessment and plan: Status post fasciotomy last night. Findings concerning for both fasciitis and compartment syndrome. Additionally she has gram-positive rods bacteremia. She was started empirically on Flagyl, clindamycin and Levaquin. Continue with the same and follow recommendations by infectious disease team. Discussed with vascular surgery, continue with current management. Leukocytosis is trending down. (3) Diabetes mellitus type 2, uncontrolled Current Visit: Yes Status: Chronic Assessment and plan: due to systemic steroids, continue insulin. continue monitring. Qualifiers: Diabetes mellitus complication status: with neurologic complications Diabetes mellitus complication detail: with unspecified neuropathy Diabetes mellitus director long term care insulin use: with long-term use Qualified Code(s): E11.40 - Type 2 diabetes mellitus with diabetic neuropathy, unspecified; E11.65 - Type 2 diabetes mellitus with hyperglycemia; Z79.4 - prison (current) use of insulin (4) DVT prophylaxis Current Visit: No Status: Acute (5) Acute on chronic respiratory failure with hypoxia Current Visit: Yes Status: Acute (6) Hemoptysis Current Visit: Yes Status: Acute (7) Atrial fibrillation Current Visit: Yes Status: Chronic Assessment and plan: on cardizem and betablockers, ventricular rate currently controlled. no AC due to hemoptysis. Qualifiers: Atrial fibrillation type: chronic Qualified Code(s): I48.2 - Chronic atrial fibrillation (8) Bacteremia Current Visit: Yes Status: Acute Assessment and plan: On broad-spectrum antibiotics, follow recommendations by infectious disease. No evidence of vegetation in the transthoracic echo. (9) Compartment syndrome Current Visit: Yes Status: Acute Qualifiers: Compartment syndrome type: non-traumatic Compartment syndrome location: lower extremity Laterality: right Qualified Code(s): M79.A21 - Nontraumatic compartment syndrome of right lower extremity - Subjective Interval history: no fever, right lower extremitiy pain, less than yesterday. She went to the OR overnight. - Constitutional Vitals: Temp Pulse Resp BP Pulse Ox 97.9 F 85 17 139/62 93 07/24/16 11:45 07/24/16 11:45 07/24/16 11:45 07/24/16 11:45 07/24/16 11:45 General appearance: Present: cooperative, mild distress, A&O X 3, pleasant, no acute distress - Head Head exam: Present: atraumatic, normocephalic - Eye Eye exam: Present: PERRL, conjuntiva pink, sclera anicteric Pupils: Present: PERRL - Neck Neck exam general surgery: Present: supple, trachea midline. Absent: lymphadenopathy - Respiratory Respiratory exam: Present: decreased breath sounds. Absent: accessory muscle use, rales, rhonchi, wheezes - Cardiovascular Cardiovascular exam: Present: RRR, +S1, +S2. Absent: diastolic murmur, gallop, rubs, systolic murmur - GI/Abdominal GI/Abdominal exam: Present: normal bowel sounds, soft, no peritoneal signs. Absent: distended, tenderness - Extremities Exam Extremities exam: Present: pedal edema, warm, radial pulses palpable and symetrical. Absent: calf tenderness, cyanotic Additional comments: Right lower extremity is status post fasciotomy with YAMEL drain noted with serosanguineous drainage. - Neurological Exam Neurological exam: Present: CN II-XII intact, oriented X3, no focal deficits. Absent: pronater drift, facial droop, speech deficit - Skin Skin exam: Present: dry, intact Internal Medicine: Result - Labs CBC & Chem 7: 07/24/16 05:04 07/24/16 05:04 Labs: Short CBC 07/23/16 07/24/16 Range/Units 16:09 05:04 WBC 38.0 H* 27.8 H (4.3-11.1) K/mcL Hgb 10.9 L 9.2 L D (11.5-15.4) g/dL Hct 33.8 L 29.4 L (35.3-44.9) % Plt Count 231 174 (140-400) K/mcL Neutrophils # 34.9 H 25.4 H (1.6-8.9) K/mcL BMP 07/24/16 05:04 Sodium 144 Potassium 4.3 D Chloride 102 Carbon Dioxide 33 H BUN 31 H Creatinine 1.08 Glucose 46 L Calcium 9.3 Liver Function 07/24/16 Range/Units 05:04 Total Bilirubin 1.2 (0.2-1.2) mg/dL Direct Bilirubin 0.7 H (0.0-0.5) mg/dL AST 27 (5-34) Units/L ALT 50 (0-55) Units/L Alkaline Phosphatase 55 (38-126) Units/L Albumin 2.2 L (3.5-5.0) g/dL - ABG Interpretation ABG results: PT/INR, D-dimer PT 10.1 Seconds (9.4-12.1) 07/23/16 05:02 D-Dimer 6124 ng/mLFEU (0-500) H 07/23/16 05:02 - Impressions Impressions Lower Extremity CT 07/23/16 16:00 IMPRESSION: 1. Redemonstration of diffuse subcutaneous fat stranding in the right lower extremity unchanged from the previous study. The differential includes bland lymphedema versus cellulitis. No convincing evidence of infectious or necrotizing fasciitis. MRI would be more sensitive if clinically indicated. 2. No acute osseous abnormality. D/ / Mc Mcdowell MD / cM Mcdowell MD Interpreting Provider: Mc Mcdowell MD - VTE Documentation of Mechanical Device: Graduated compression elastic hosiery Consult Discharge Plan - Plan Referrals: Con Vogt CNP [Advanced Practice Nurse] - 08/02/16 3:30 pm Aliyah Prado CNP [Primary Care Provider] - (walk in facilities.. no need for an appointment. Patient will go to rehab upon discharge)
--- NOTE | 2016-07-24 15:21 | Infectious Disease Progress No ---
Date of Encounter: 07/24/16 Time of Encounter: 15:19 - Assessment and Plan (1) Acute on chronic respiratory failure with hypoxia Current Visit: Yes Status: Acute Secondary to alveolar hemorrhage. concern for pnuemonia as well per pulmonary note s/p bronchoscopy; bonchoscopy report reviewed. high index of suspicion for vasculitis. d/w with rheumatology patient is on high dose steroids. hemoptysis resolved continue to observe d/w pulmonary on sunday, no concern for pneumonia. d/vitor zyvox and started daptomycin check baseline CK level (2) Diffuse pulmonary alveolar hemorrhage Current Visit: Yes Status: Acute (3) Gram-positive bacteremia Current Visit: Yes Status: Acute now patient is having VRE 2/2 sets from 07/18; 1/2 sets positive for VRE on 07/19 no obvious source. patient again feeling great with no SIRS criteria switched zyvox to daptomycin repeat cultures on 07/22 positive for GPR 2/2 sets; final id pending (4) Atrial fibrillation with RVR Current Visit: Yes Status: Acute (5) Elevated troponin Current Visit: Yes Status: Acute (6) Hemoptysis Current Visit: Yes Status: Acute (7) CORINNE positive Current Visit: Yes Status: Acute (8) Compartment syndrome Current Visit: Yes Status: Acute s/p fasciotomy causative organism not clear does not appear to be GAS d/c clinda continue dapto and flagyl start cefepime ( monitor closely since pcn allergy) d/w pharmacy staff Qualifiers: Compartment syndrome type: non-traumatic Compartment syndrome location: lower extremity Laterality: right Qualified Code(s): M79.A21 - Nontraumatic compartment syndrome of right lower extremity - Subjective Interval history: patient seen and examined. Seems to be doing great clinically. has no specific complaints. Brother at bedside. Patient denies any headache no chest pain, no shortness of breath, no hemoptysis, no diarrhea. Infect Dis PN-Objective Data - Labs CBC & Chem 7: 07/24/16 05:04 07/24/16 05:04 Labs: Laboratory Results - last 24 hr 07/19/16 07/20/16 07/22/16 12:24 17:46 08:16 WBC RBC Hgb Hct MCV MCH MCHC RDW Plt Count MPV Immature Gran % Seg Neutrophils % Lymphocytes % Monocytes % Eosinophils % Basophils % Neutrophils # Lymphocytes # Monocytes # Eosinophils # Basophils # Nucleated RBCs/100 WBC Platelet Estimate Immature Plt Fraction Polychromasia Anisocytosis ESR Sodium Potassium Chloride Carbon Dioxide BUN Creatinine Est GFR ( Amer) Est GFR (Non-Af Amer) BUN/Creatinine Ratio Glucose POC Glucose 186 H Calculated Osmolality Lactic Acid Calcium Magnesium Total Bilirubin Direct Bilirubin Indirect Bilirubin AST ALT Alkaline Phosphatase Creatine Kinase C-Reactive Protein Serum Total Protein Albumin Globulin Albumin/Globulin Ratio A. baumannii (PCR) Not Detected Jenna albicans (PCR) Not Detected C. glabrata (PCR) Not Detected C. krusei (PCR) Not Detected C. parapsilosis (PCR) Not Detected C. tropicalis (PCR) Not Detected Enterobacteriac sp PCR Not Detected E. cloacae complex PCR Not Detected Enterococcus sp PCR DETECTED A E. coli (PCR) Not Detected H. influenzae (PCR) Not Detected Klebsiella oxytoca PCR Not Detected Klebsiella pneumoniae Not Detected List. monocytogenes PCR Not Detected N. meningitidis (PCR) Not Detected Proteus species (PCR) Not Detected Serratia marcescens PCR Not Detected Staphylococcus sp PCR Not Detected Staph aureus (PCR) Not Detected mecA-Methicil Res Gene N/A Streptococcus sp PCR Not Detected Group A Strep DNA Not Detected Group B Strep (PCR) Not Detected Strep pneumoniae (PCR) Not Detected P. aeruginosa (PCR) Not Detected TB (QFT) Gold In Tube INDETERMINATE TB Test (QFT) Nil 0.03 TB Test Mitogen - Nil 0.16 Peter/B-Vanco Res Genes DETECTED A KPC (blaKPC) Detect PCR N/A 07/22/16 07/22/16 07/22/16 12:03 15:54 19:57 WBC RBC Hgb Hct MCV MCH MCHC RDW Plt Count MPV Immature Gran % Seg Neutrophils % Lymphocytes % Monocytes % Eosinophils % Basophils % Neutrophils # Lymphocytes # Monocytes # Eosinophils # Basophils # Nucleated RBCs/100 WBC Platelet Estimate Immature Plt Fraction Polychromasia Anisocytosis ESR Sodium Potassium Chloride Carbon Dioxide BUN Creatinine Est GFR ( Amer) Est GFR (Non-Af Amer) BUN/Creatinine Ratio Glucose POC Glucose 272 H 263 H 278 H Calculated Osmolality Lactic Acid Calcium Magnesium Total Bilirubin Direct Bilirubin Indirect Bilirubin AST ALT Alkaline Phosphatase Creatine Kinase C-Reactive Protein Serum Total Protein Albumin Globulin Albumin/Globulin Ratio A. baumannii (PCR) Jenna albicans (PCR) C. glabrata (PCR) C. krusei (PCR) C. parapsilosis (PCR) C. tropicalis (PCR) Enterobacteriac sp PCR E. cloacae complex PCR Enterococcus sp PCR E. coli (PCR) H. influenzae (PCR) Klebsiella oxytoca PCR Klebsiella pneumoniae List. monocytogenes PCR N. meningitidis (PCR) Proteus species (PCR) Serratia marcescens PCR Staphylococcus sp PCR Staph aureus (PCR) mecA-Methicil Res Gene Streptococcus sp PCR Group A Strep DNA Group B Strep (PCR) Strep pneumoniae (PCR) P. aeruginosa (PCR) TB (QFT) Gold In Tube TB Test (QFT) Nil TB Test Mitogen - Nil Peter/B-Vanco Res Genes KPC (blaKPC) Detect PCR 07/23/16 07/23/16 07/23/16 16:09 16:09 16:09 WBC 38.0 H* RBC 3.90 Hgb 10.9 L Hct 33.8 L MCV 86.7 MCH 27.9 L MCHC 32.2 RDW 18.1 H Plt Count 231 MPV 10.5 Immature Gran % 1.3 Seg Neutrophils % 91.9 Lymphocytes % 3.8 Monocytes % 2.8 Eosinophils % 0.0 Basophils % 0.2 Neutrophils # 34.9 H Lymphocytes # 1.4 Monocytes # 1.1 Eosinophils # 0.0 Basophils # 0.1 Nucleated RBCs/100 WBC 0.1 H Platelet Estimate Normal Immature Plt Fraction 4.4 Polychromasia 1+ A Anisocytosis 1+ A ESR 37 H Sodium Potassium Chloride Carbon Dioxide BUN Creatinine Est GFR ( Amer) Est GFR (Non-Af Amer) BUN/Creatinine Ratio Glucose POC Glucose Calculated Osmolality Lactic Acid Calcium Magnesium Total Bilirubin Direct Bilirubin Indirect Bilirubin AST ALT Alkaline Phosphatase Creatine Kinase 211 H C-Reactive Protein Serum Total Protein Albumin Globulin Albumin/Globulin Ratio A. baumannii (PCR) Jenna albicans (PCR) C. glabrata (PCR) C. krusei (PCR) C. parapsilosis (PCR) C. tropicalis (PCR) Enterobacteriac sp PCR E. cloacae complex PCR Enterococcus sp PCR E. coli (PCR) H. influenzae (PCR) Klebsiella oxytoca PCR Klebsiella pneumoniae List. monocytogenes PCR N. meningitidis (PCR) Proteus species (PCR) Serratia marcescens PCR Staphylococcus sp PCR Staph aureus (PCR) mecA-Methicil Res Gene Streptococcus sp PCR Group A Strep DNA Group B Strep (PCR) Strep pneumoniae (PCR) P. aeruginosa (PCR) TB (QFT) Gold In Tube TB Test (QFT) Nil TB Test Mitogen - Nil Peter/B-Vanco Res Genes KPC (blaKPC) Detect PCR 07/23/16 07/23/16 07/23/16 16:09 16:48 16:58 WBC RBC Hgb Hct MCV MCH MCHC RDW Plt Count MPV Immature Gran % Seg Neutrophils % Lymphocytes % Monocytes % Eosinophils % Basophils % Neutrophils # Lymphocytes # Monocytes # Eosinophils # Basophils # Nucleated RBCs/100 WBC Platelet Estimate Immature Plt Fraction Polychromasia Anisocytosis ESR Sodium Potassium Chloride Carbon Dioxide BUN Creatinine Est GFR ( Amer) Est GFR (Non-Af Amer) BUN/Creatinine Ratio Glucose POC Glucose 85 Calculated Osmolality Lactic Acid 3.1 H Calcium Magnesium Total Bilirubin Direct Bilirubin Indirect Bilirubin AST ALT Alkaline Phosphatase Creatine Kinase C-Reactive Protein 213 H Serum Total Protein Albumin Globulin Albumin/Globulin Ratio A. baumannii (PCR) Jenna albicans (PCR) C. glabrata (PCR) C. krusei (PCR) C. parapsilosis (PCR) C. tropicalis (PCR) Enterobacteriac sp PCR E. cloacae complex PCR Enterococcus sp PCR E. coli (PCR) H. influenzae (PCR) Klebsiella oxytoca PCR Klebsiella pneumoniae List. monocytogenes PCR N. meningitidis (PCR) Proteus species (PCR) Serratia marcescens PCR Staphylococcus sp PCR Staph aureus (PCR) mecA-Methicil Res Gene Streptococcus sp PCR Group A Strep DNA Group B Strep (PCR) Strep pneumoniae (PCR) P. aeruginosa (PCR) TB (QFT) Gold In Tube TB Test (QFT) Nil TB Test Mitogen - Nil Peter/B-Vanco Res Genes KPC (blaKPC) Detect PCR 07/23/16 07/23/16 07/23/16 20:42 20:52 21:16 WBC RBC Hgb Hct MCV MCH MCHC RDW Plt Count MPV Immature Gran % Seg Neutrophils % Lymphocytes % Monocytes % Eosinophils % Basophils % Neutrophils # Lymphocytes # Monocytes # Eosinophils # Basophils # Nucleated RBCs/100 WBC Platelet Estimate Immature Plt Fraction Polychromasia Anisocytosis ESR Sodium Potassium Chloride Carbon Dioxide BUN Creatinine Est GFR ( Amer) Est GFR (Non-Af Amer) BUN/Creatinine Ratio Glucose POC Glucose 73 70 Calculated Osmolality Lactic Acid 1.9 Calcium Magnesium Total Bilirubin Direct Bilirubin Indirect Bilirubin AST ALT Alkaline Phosphatase Creatine Kinase C-Reactive Protein Serum Total Protein Albumin Globulin Albumin/Globulin Ratio A. baumannii (PCR) Jenna albicans (PCR) C. glabrata (PCR) C. krusei (PCR) C. parapsilosis (PCR) C. tropicalis (PCR) Enterobacteriac sp PCR E. cloacae complex PCR Enterococcus sp PCR E. coli (PCR) H. influenzae (PCR) Klebsiella oxytoca PCR Klebsiella pneumoniae List. monocytogenes PCR N. meningitidis (PCR) Proteus species (PCR) Serratia marcescens PCR Staphylococcus sp PCR Staph aureus (PCR) mecA-Methicil Res Gene Streptococcus sp PCR Group A Strep DNA Group B Strep (PCR) Strep pneumoniae (PCR) P. aeruginosa (PCR) TB (QFT) Gold In Tube TB Test (QFT) Nil TB Test Mitogen - Nil Peter/B-Vanco Res Genes KPC (blaKPC) Detect PCR 07/23/16 07/23/16 07/24/16 21:18 23:20 05:04 WBC 27.8 H RBC 3.35 L Hgb 9.2 L D Hct 29.4 L MCV 87.8 MCH 27.5 L MCHC 31.3 L RDW 18.5 H Plt Count 174 MPV 10.2 Immature Gran % 1.3 Seg Neutrophils % 91.3 Lymphocytes % 4.0 Monocytes % 3.3 Eosinophils % 0.0 Basophils % 0.1 Neutrophils # 25.4 H Lymphocytes # 1.1 Monocytes # 0.9 Eosinophils # 0.0 Basophils # 0.0 Nucleated RBCs/100 WBC Platelet Estimate Normal Immature Plt Fraction Polychromasia 1+ A Anisocytosis 1+ A ESR Sodium Potassium Chloride Carbon Dioxide BUN Creatinine Est GFR ( Amer) Est GFR (Non-Af Amer) BUN/Creatinine Ratio Glucose POC Glucose 75 98 H Calculated Osmolality Lactic Acid Calcium Magnesium Total Bilirubin Direct Bilirubin Indirect Bilirubin AST ALT Alkaline Phosphatase Creatine Kinase C-Reactive Protein Serum Total Protein Albumin Globulin Albumin/Globulin Ratio A. baumannii (PCR) Jenna albicans (PCR) C. glabrata (PCR) C. krusei (PCR) C. parapsilosis (PCR) C. tropicalis (PCR) Enterobacteriac sp PCR E. cloacae complex PCR Enterococcus sp PCR E. coli (PCR) H. influenzae (PCR) Klebsiella oxytoca PCR Klebsiella pneumoniae List. monocytogenes PCR N. meningitidis (PCR) Proteus species (PCR) Serratia marcescens PCR Staphylococcus sp PCR Staph aureus (PCR) mecA-Methicil Res Gene Streptococcus sp PCR Group A Strep DNA Group B Strep (PCR) Strep pneumoniae (PCR) P. aeruginosa (PCR) TB (QFT) Gold In Tube TB Test (QFT) Nil TB Test Mitogen - Nil Peter/B-Vanco Res Genes KPC (blaKPC) Detect PCR 07/24/16 05:04 WBC RBC Hgb Hct MCV MCH MCHC RDW Plt Count MPV Immature Gran % Seg Neutrophils % Lymphocytes % Monocytes % Eosinophils % Basophils % Neutrophils # Lymphocytes # Monocytes # Eosinophils # Basophils # Nucleated RBCs/100 WBC Platelet Estimate Immature Plt Fraction Polychromasia Anisocytosis ESR Sodium 144 Potassium 4.3 D Chloride 102 Carbon Dioxide 33 H BUN 31 H Creatinine 1.08 Est GFR ( Amer) > 60 Est GFR (Non-Af Amer) 52 L BUN/Creatinine Ratio 29 H Glucose 46 L POC Glucose Calculated Osmolality 302 H Lactic Acid Calcium 9.3 Magnesium 1.5 L Total Bilirubin 1.2 Direct Bilirubin 0.7 H Indirect Bilirubin 0.5 AST 27 ALT 50 Alkaline Phosphatase 55 Creatine Kinase 173 H C-Reactive Protein Serum Total Protein 5.7 L Albumin 2.2 L Globulin 3.5 Albumin/Globulin Ratio 0.6 L A. baumannii (PCR) Jenna albicans (PCR) C. glabrata (PCR) C. krusei (PCR) C. parapsilosis (PCR) C. tropicalis (PCR) Enterobacteriac sp PCR E. cloacae complex PCR Enterococcus sp PCR E. coli (PCR) H. influenzae (PCR) Klebsiella oxytoca PCR Klebsiella pneumoniae List. monocytogenes PCR N. meningitidis (PCR) Proteus species (PCR) Serratia marcescens PCR Staphylococcus sp PCR Staph aureus (PCR) mecA-Methicil Res Gene Streptococcus sp PCR Group A Strep DNA Group B Strep (PCR) Strep pneumoniae (PCR) P. aeruginosa (PCR) TB (QFT) Gold In Tube TB Test (QFT) Nil TB Test Mitogen - Nil Peter/B-Vanco Res Genes KPC (blaKPC) Detect PCR Cultures: Cultures 07/19/16 12:31 Blood Culture - Final Peripheral Venipuncture No growth. 07/19/16 12:24 Blood Culture - Preliminary Peripheral Venipuncture Gram Positive Cocci 07/23/16 17:16 Blood Culture - Preliminary Peripheral Venipuncture Gram Positive Rods 07/23/16 17:20 Blood Culture - Preliminary Peripheral Venipuncture Gram Positive Rods 07/18/16 11:32 Blood Culture - Final Peripheral Venipuncture Gram Positive Cocci 07/18/16 11:37 Blood Culture - Final Peripheral Venipuncture Vanc. Resistant Enterococcus 07/11/16 09:07 Blood Culture - Final Peripheral Venipuncture No growth. 07/13/16 12:30 Sputum Culture - Final Sputum 07/11/16 16:47 Respiratory Culture - Final Right Lower Lobe Lung Normal upper respiratory tract juan m. No apparent pathogens isolated. 07/11/16 16:47 Gram Stain - Final Right Lower Lobe Lung 07/11/16 16:47 Acid Fast Stain - Final Right Lower Lobe Lung 07/12/16 23:12 Legionella Antigen - Final Urine,Clean Catch Streptococcus pneumoniae Antigen (M - Final Serology 07/20/16 07/19/16 07/18/16 Range/Units 17:46 12:24 11:37 Urine Color (Yellow) Urine Clarity (Clear) Urine pH (5.0-8.0) pH Units Ur Specific Holden (1.010-1.025) Urine Protein (Neg-Trace) mg/dL Urine Glucose (UA) (Normal) mg/dL Urine Ketones (Negative) mg/dL Urine Blood (Negative) Urine Nitrite (Negative) Urine Bilirubin (Negative) Urine Urobilinogen (Normal) mg/dL Ur Leukocyte Esterase (Negative) Urine Microscopic RBC (0-3) per hpf Urine Microscopic WBC (0-3) per hpf Ur Squamous Epith Cells (None-Few) per lpf Urine Bacteria (None-Few) per hpf Hyaline Casts (None-Few) per lpf Urine Yeast Ur Culture Indicated? (NO) Urine Creatinine mg/dL Urine Microalbumin mg/L Microalb/Creat Ratio (0-30) Protein/Creatinin Ratio (0-0.20) mg/mg Urine Total Protein (1-14) mg/dL Urine Hemosiderin (Negative) Fluid Source Fluid Volume mL Fluid Appearance (Clear) Fluid RBC Fld Tot Nucleated Cell Fluid Seg Neutrophil % % Fluid Lymphocytes % % Fluid Monocytes % % Fluid Other Cells % % A. baumannii (PCR) Not Detected Not Detected (Not Detect) Jenna albicans (PCR) Not Detected Not Detected (Not Detect) C. glabrata (PCR) Not Detected Not Detected (Not Detect) C. krusei (PCR) Not Detected Not Detected (Not Detect) C. parapsilosis (PCR) Not Detected Not Detected (Not Detect) C. tropicalis (PCR) Not Detected Not Detected (Not Detect) Enterobacteriac sp PCR Not Detected Not Detected (Not Detect) E. cloacae complex PCR Not Detected Not Detected (Not Detect) Enterococcus sp PCR DETECTED A DETECTED A (Not Detect) E. coli (PCR) Not Detected Not Detected (Not Detect) H. influenzae (PCR) Not Detected Not Detected (Not Detect) Hepatitis A IgM Ab (Nonreactive) Hep Bs Antigen (Nonreactive) Hep B Core IgM Ab (Nonreactive) Hepatitis C Ab Screen (Nonreactive) HIV Ag/Ab Combo Qual (Nonreactive) Klebsiella oxytoca PCR Not Detected Not Detected (Not Detect) Klebsiella pneumoniae Not Detected Not Detected (Not Detect) List. monocytogenes PCR Not Detected Not Detected (Not Detect) N. meningitidis (PCR) Not Detected Not Detected (Not Detect) Proteus species (PCR) Not Detected Not Detected (Not Detect) Serratia marcescens PCR Not Detected Not Detected (Not Detect) Staphylococcus sp PCR Not Detected Not Detected (Not Detect) Staph aureus (PCR) Not Detected Not Detected (Not Detect) mecA-Methicil Res Gene N/A Not Detected (Not Detect) Streptococcus sp PCR Not Detected Not Detected (Not Detect) Group A Strep DNA Not Detected Not Detected (Not Detect) Group B Strep (PCR) Not Detected Not Detected (Not Detect) Strep pneumoniae (PCR) Not Detected Not Detected (Not Detect) P. aeruginosa (PCR) Not Detected Not Detected (Not Detect) TB (QFT) Gold In Tube INDETERMINATE (Negative) TB Test (QFT) Nil 0.03 IU/mL TB Test Mitogen - Nil 0.16 IU/mL Peter/B-Vanco Res Genes DETECTED A DETECTED A (Not Detect) KPC (blaKPC) Detect PCR N/A Not Detected (Not Detect) 07/17/16 07/14/16 07/13/16 Range/Units 10:31 13:05 21:00 Urine Color (Yellow) Urine Clarity (Clear) Urine pH (5.0-8.0) pH Units Ur Specific Holden (1.010-1.025) Urine Protein (Neg-Trace) mg/dL Urine Glucose (UA) (Normal) mg/dL Urine Ketones (Negative) mg/dL Urine Blood (Negative) Urine Nitrite (Negative) Urine Bilirubin (Negative) Urine Urobilinogen (Normal) mg/dL Ur Leukocyte Esterase (Negative) Urine Microscopic RBC (0-3) per hpf Urine Microscopic WBC (0-3) per hpf Ur Squamous Epith Cells (None-Few) per lpf Urine Bacteria (None-Few) per hpf Hyaline Casts (None-Few) per lpf Urine Yeast Ur Culture Indicated? (NO) Urine Creatinine 59 mg/dL Urine Microalbumin mg/L Microalb/Creat Ratio (0-30) Protein/Creatinin Ratio 1.12 H (0-0.20) mg/mg Urine Total Protein 66 H (1-14) mg/dL Urine Hemosiderin (Negative) Fluid Source Fluid Volume mL Fluid Appearance (Clear) Fluid RBC Fld Tot Nucleated Cell Fluid Seg Neutrophil % % Fluid Lymphocytes % % Fluid Monocytes % % Fluid Other Cells % % A. baumannii (PCR) (Not Detect) Jenna albicans (PCR) (Not Detect) C. glabrata (PCR) (Not Detect) C. krusei (PCR) (Not Detect) C. parapsilosis (PCR) (Not Detect) C. tropicalis (PCR) (Not Detect) Enterobacteriac sp PCR (Not Detect) E. cloacae complex PCR (Not Detect) Enterococcus sp PCR (Not Detect) E. coli (PCR) (Not Detect) H. influenzae (PCR) (Not Detect) Hepatitis A IgM Ab (Nonreactive) Hep Bs Antigen (Nonreactive) Hep B Core IgM Ab (Nonreactive) Hepatitis C Ab Screen (Nonreactive) HIV Ag/Ab Combo Qual Nonreactive (Nonreactive) Klebsiella oxytoca PCR (Not Detect) Klebsiella pneumoniae (Not Detect) List. monocytogenes PCR (Not Detect) N. meningitidis (PCR) (Not Detect) Proteus species (PCR) (Not Detect) Serratia marcescens PCR (Not Detect) Staphylococcus sp PCR (Not Detect) Staph aureus (PCR) (Not Detect) mecA-Methicil Res Gene (Not Detect) Streptococcus sp PCR (Not Detect) Group A Strep DNA (Not Detect) Group B Strep (PCR) (Not Detect) Strep pneumoniae (PCR) (Not Detect) P. aeruginosa (PCR) (Not Detect) TB (QFT) Gold In Tube INDETERMINATE (Negative) TB Test (QFT) Nil 0.04 IU/mL TB Test Mitogen - Nil 0.03 IU/mL Peter/B-Vanco Res Genes (Not Detect) KPC (blaKPC) Detect PCR (Not Detect) 07/13/16 07/13/16 07/13/16 Range/Units 21:00 21:00 21:00 Urine Color Yellow (Yellow) Urine Clarity Cloudy A (Clear) Urine pH 6.0 (5.0-8.0) pH Units Ur Specific Holden 1.025 (1.010-1.025) Urine Protein 100 H (Neg-Trace) mg/dL Urine Glucose (UA) >=1000 H (Normal) mg/dL Urine Ketones Negative (Negative) mg/dL Urine Blood Moderate H (Negative) Urine Nitrite Negative (Negative) Urine Bilirubin Negative (Negative) Urine Urobilinogen Normal (Normal) mg/dL Ur Leukocyte Esterase Negative (Negative) Urine Microscopic RBC 0-3 (0-3) per hpf Urine Microscopic WBC 3-5 H (0-3) per hpf Ur Squamous Epith Cells Many H (None-Few) per lpf Urine Bacteria None Seen (None-Few) per hpf Hyaline Casts Few (None-Few) per lpf Urine Yeast Test Not Performed Ur Culture Indicated? NO (NO) Urine Creatinine 58 mg/dL Urine Microalbumin 235 mg/L Microalb/Creat Ratio 405 H (0-30) Protein/Creatinin Ratio (0-0.20) mg/mg Urine Total Protein (1-14) mg/dL Urine Hemosiderin NEGATIVE (Negative) Fluid Source Fluid Volume mL Fluid Appearance (Clear) Fluid RBC Fld Tot Nucleated Cell Fluid Seg Neutrophil % % Fluid Lymphocytes % % Fluid Monocytes % % Fluid Other Cells % % A. baumannii (PCR) (Not Detect) Jenna albicans (PCR) (Not Detect) C. glabrata (PCR) (Not Detect) C. krusei (PCR) (Not Detect) C. parapsilosis (PCR) (Not Detect) C. tropicalis (PCR) (Not Detect) Enterobacteriac sp PCR (Not Detect) E. cloacae complex PCR (Not Detect) Enterococcus sp PCR (Not Detect) E. coli (PCR) (Not Detect) H. influenzae (PCR) (Not Detect) Hepatitis A IgM Ab (Nonreactive) Hep Bs Antigen (Nonreactive) Hep B Core IgM Ab (Nonreactive) Hepatitis C Ab Screen (Nonreactive) HIV Ag/Ab Combo Qual (Nonreactive) Klebsiella oxytoca PCR (Not Detect) Klebsiella pneumoniae (Not Detect) List. monocytogenes PCR (Not Detect) N. meningitidis (PCR) (Not Detect) Proteus species (PCR) (Not Detect) Serratia marcescens PCR (Not Detect) Staphylococcus sp PCR (Not Detect) Staph aureus (PCR) (Not Detect) mecA-Methicil Res Gene (Not Detect) Streptococcus sp PCR (Not Detect) Group A Strep DNA (Not Detect) Group B Strep (PCR) (Not Detect) Strep pneumoniae (PCR) (Not Detect) P. aeruginosa (PCR) (Not Detect) TB (QFT) Gold In Tube (Negative) TB Test (QFT) Nil IU/mL TB Test Mitogen - Nil IU/mL Peter/B-Vanco Res Genes (Not Detect) KPC (blaKPC) Detect PCR (Not Detect) 07/13/16 07/11/16 Range/Units 16:45 16:47 Urine Color (Yellow) Urine Clarity (Clear) Urine pH (5.0-8.0) pH Units Ur Specific Holden (1.010-1.025) Urine Protein (Neg-Trace) mg/dL Urine Glucose (UA) (Normal) mg/dL Urine Ketones (Negative) mg/dL Urine Blood (Negative) Urine Nitrite (Negative) Urine Bilirubin (Negative) Urine Urobilinogen (Normal) mg/dL Ur Leukocyte Esterase (Negative) Urine Microscopic RBC (0-3) per hpf Urine Microscopic WBC (0-3) per hpf Ur Squamous Epith Cells (None-Few) per lpf Urine Bacteria (None-Few) per hpf Hyaline Casts (None-Few) per lpf Urine Yeast Ur Culture Indicated? (NO) Urine Creatinine mg/dL Urine Microalbumin mg/L Microalb/Creat Ratio (0-30) Protein/Creatinin Ratio (0-0.20) mg/mg Urine Total Protein (1-14) mg/dL Urine Hemosiderin (Negative) Fluid Source RLL BAL Fluid Volume 22 mL Fluid Appearance Cloudy A (Clear) Fluid RBC TNP Fld Tot Nucleated Cell TNP Fluid Seg Neutrophil % 27.0 % Fluid Lymphocytes % 50.0 % Fluid Monocytes % 2.0 % Fluid Other Cells % 21.0 % A. baumannii (PCR) (Not Detect) Jenna albicans (PCR) (Not Detect) C. glabrata (PCR) (Not Detect) C. krusei (PCR) (Not Detect) C. parapsilosis (PCR) (Not Detect) C. tropicalis (PCR) (Not Detect) Enterobacteriac sp PCR (Not Detect) E. cloacae complex PCR (Not Detect) Enterococcus sp PCR (Not Detect) E. coli (PCR) (Not Detect) H. influenzae (PCR) (Not Detect) Hepatitis A IgM Ab Nonreactive (Nonreactive) Hep Bs Antigen Nonreactive (Nonreactive) Hep B Core IgM Ab Nonreactive (Nonreactive) Hepatitis C Ab Screen Nonreactive (Nonreactive) HIV Ag/Ab Combo Qual (Nonreactive) Klebsiella oxytoca PCR (Not Detect) Klebsiella pneumoniae (Not Detect) List. monocytogenes PCR (Not Detect) N. meningitidis (PCR) (Not Detect) Proteus species (PCR) (Not Detect) Serratia marcescens PCR (Not Detect) Staphylococcus sp PCR (Not Detect) Staph aureus (PCR) (Not Detect) mecA-Methicil Res Gene (Not Detect) Streptococcus sp PCR (Not Detect) Group A Strep DNA (Not Detect) Group B Strep (PCR) (Not Detect) Strep pneumoniae (PCR) (Not Detect) P. aeruginosa (PCR) (Not Detect) TB (QFT) Gold In Tube (Negative) TB Test (QFT) Nil IU/mL TB Test Mitogen - Nil IU/mL Peter/B-Vanco Res Genes (Not Detect) KPC (blaKPC) Detect PCR (Not Detect) - Impressions Impressions Lower Extremity CT 07/23/16 16:00 IMPRESSION: 1. Redemonstration of diffuse subcutaneous fat stranding in the right lower extremity unchanged from the previous study. The differential includes bland lymphedema versus cellulitis. No convincing evidence of infectious or necrotizing fasciitis. MRI would be more sensitive if clinically indicated. 2. No acute osseous abnormality. D/ / Mc Mcdowell MD / Mc Mcdowell MD Interpreting Provider: Mc Mcdowell MD Exam - Constitutional Vitals: Temp Pulse Resp BP Pulse Ox 97.9 F 85 17 139/62 93 07/24/16 11:45 07/24/16 14:25 07/24/16 14:25 07/24/16 14:25 07/24/16 14:25 General appearance: no acute distress, no febrile - Head Head exam: Present: atraumatic, normocephalic - Neck Neck exam: Present: full ROM - Respiratory Additional comments: air sounds audible both lung vazquez. some scattered ronchi - Cardiovascular Cardiovascular exam: Present: RRR, +S1, +S2 - Extremities Exam Additional comments: right lower exteremity wrapped with drain intact - VTE Documentation of Mechanical Device: Graduated compression elastic hosiery Consult Discharge Plan - Plan Referrals: Con Vogt CNP [Advanced Practice Nurse] - 08/02/16 3:30 pm Aliyah Prado CNP [Primary Care Provider] - (walk in facilities.. no need for an appointment. Patient will go to rehab upon discharge)
[2016-07-24] MEDS: DAPTOMYCIN IVPB SCH (16:49)
[2016-07-24] MEDS: SODIUM CHLORIDE 0.9% IVPB SCH (16:49)
[2016-07-24] MEDS ORDERED: Cefepime HCl 2,000 MG in D5% in Water (Mini-Bag+) 100 ML IVPB SCH (18:00)
[2016-07-24] MEDS ORDERED: Insulin DETEMIR 100 UNIT/ML X5UNITS SQ SCH (21:00)
[2016-07-24 21:02] LABS: Enterococcus by PCR Not Detected (Not Detect); Staphylococcus aureus by PCR Not Detected (Not Detect); Streptococcus agalactiae(B)PCR Not Detected (Not Detect); Streptococcus by PCR Not Detected (Not Detect); Streptococcus pneumoniae PCR Not Detected (Not Detect); Streptococcus pyogenes (A) PCR Not Detected (Not Detect); blaKPC Carbapenem-Resist Gene Not Detected (Not Detect); mecA Methicillin-Resist Gene Not Detected (Not Detect); vanA/B Vancomycin-Resist Genes Not Detected (Not Detect)
[2016-07-24 21:03] LABS: Acinetobacter baumannii by PCR Not Detected (Not Detect); Candida albicans by PCR Not Detected (Not Detect); Candida glabrata by PCR Not Detected (Not Detect); Candida krusei by PCR Not Detected (Not Detect); Candida parapsilosis by PCR Not Detected (Not Detect); Candida tropicalis by PCR Not Detected (Not Detect); Escherichia coli by PCR ***DETECTED*** (Not Detect); Klebsiella oxytoca by PCR Not Detected (Not Detect); Klebsiella pneumoniae by PCR Not Detected (Not Detect); Pseudomonas aeruginosa by PCR Not Detected (Not Detect); Serratia marcescens by PCR Not Detected (Not Detect)
[2016-07-25] MEDS ORDERED: Dextrose Gel 15 GM PO PRN ×2 (01:18)
[2016-07-25] MEDS ORDERED: *HR* Dextrose 50 % in Water (Syg) 50 ML SYRINGE IVP PRN (01:18)
[2016-07-25] MEDS ORDERED: Ondansetron 4 MG/2 ML VIAL IVP PRN (01:18)
[2016-07-25] MEDS ORDERED: Acetaminophen 325 MG TABLET PO PRN (01:18)
[2016-07-25] MEDS ORDERED: D5% in Water 1,000 ML IVC PRN (01:18)
[2016-07-25] MEDS ORDERED: Albuterol 2.5 MG/3 ML NEBULIZER IH PRN (01:18)
[2016-07-25] MEDS ORDERED: Naloxone 0.4 MG/ML INJ IVP PRN (01:18)
[2016-07-25] MEDS: *HR* HYDROcodone/Acet 5/325 mg TABLET PO PRN ×2 (04:25→16:28)
[2016-07-25] MEDS: MetroNIDAZOLE 500 MG/100 ML 500 MG/100 ML BAG IVPB SCH ×4 (04:26→22:44)
[2016-07-25 05:08] LABS: Basophils % 0.1 %; Hematocrit 27.4 % (35.3-44.9); Hemoglobin 8.5 g/dL (11.5-15.4); Immature Granulocytes % 1.3 % (0-4); Lymphocytes # 1.7 K/mcL (0.6-4.6); Lymphocytes % 7.6 %; Mean Corpuscular Hemoglobin 27.8 pg (28.0-33.3); Mean Corpuscular Volume 89.5 fL (83.0-100.0); Mean Platelet Volume 10.3 fL (9.4-12.4); Monocytes # 0.8 K/mcL (0.0-1.3); Monocytes % 3.4 %; Neutrophils # 19.3 K/mcL (1.6-8.9); Nucleated Red Blood Cells 0.1 /100 WBC (0); Platelet Count 136 K/mcL (140-400); Red Blood Count 3.06 M/mcL (3.82-4.97); Red Cell Distribution Width 19.5 % (11.5-14.5); Segmented Neutrophils % 87.6 %
[2016-07-25 05:25] LABS: BUN/Creatinine Ratio 31 (6-26); Blood Urea Nitrogen 29 mg/dL (7-20); Calcium 9.8 mg/dL (8.6-10.8); Carbon Dioxide 31 mEq/L (19-29); Chloride 103 mEq/L (98-109); Glucose 60 mg/dL (70-99); Osmolality,Calculated 300 (280-300); Potassium 3.7 mEq/L (3.5-4.5); Sodium 143 mEq/L (136-145); eGFR For African Americans > 60 (> 60); eGFR For Non-African Americans > 60 (> 60)
[2016-07-25] MEDS: predniSONE 20 MG TABLET PO SCH (07:25)
[2016-07-25] MEDS: *HR* OxyCODONE/APAP 10/325 TABLET PO PRN ×2 (07:25→13:04)
[2016-07-25] MEDS: Isosorbide MONOnitrate (24 HR) 60 MG TAB.ER.24H PO SCH (07:26)
[2016-07-25] MEDS: Diltiazem CD (24hr) 180 MG CAPSULE PO SCH (07:27)
[2016-07-25] MEDS: Insulin LISPRO 300 UNITS/3 ML VIAL SQ SCH ×6 (07:37→17:47)
--- NOTE | 2016-07-25 08:22 | Nephrology Progress Note ---
Date of Encounter: 07/25/16 Time of Encounter: 08:22 - Assessment and Plan (1) Hypertension Current Visit: Yes Status: Chronic Bp 149/81, 166/82, 149/76, 168/67, 163/71, rates 85-100 bpm. Uncontrolled. Elevations of bp may be related to pain. Improving. Continue to monitor bp Goal bp <150/90 Continue with Clonidine 0.3mg patch, Continue with Metoprolol 50mg bid. Caution advised due to possible bradycardia with combination with Cardizem. Continue cardizem 180mg qd. Continue Lasix 40mg qd. Increase to 50mg losartan qd. Continue monitoring BMP and bp Continue with renal protective strategy, avoid nephrotoxins. No urgent dialysis at this time. Continue to monitor patient's blood pressure. Qualifiers: Hypertension type: essential hypertension Qualified Code(s): I10 - Essential (primary) hypertension (2) Leg pain, right Current Visit: Yes Status: Acute Patient diagnosed with Right leg compartment syndrome. Underwent fasciotoomy and debridement of necrotic subcutaneous and subfascial tissue 07/23/16 evening. Patient has drain in place. WBC 22.0, down from 27.8 yesterday. Wound culture growing gram negative rods. Doppler and CT were negative for DVT. CT revealed possible evidence of inflammation down to the level of the fascia. Continue per Hospitalist plan. (3) Chronic kidney disease, stage 3 Current Visit: Yes Status: Chronic Patient with known history of CKD stage III. Function continues improving, currently at baseline BUN 29, Cr 0.94, eGFR >60 Continue to monitor I&O Gentle fluid hydration Continue monitoring labs Continue with renal protective strategy, avoid nephrotoxic agents. (4) Proteinuria Current Visit: Yes Status: Chronic Continue to monitor and improve bp, goal <150/90. CORINNE positive, ANCA positive, MPO positive, GBM negative. 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 Final report renal biopsy returned findings suggestive of longstanding chronic hypertension and diabetes, no vasculitis. High dose steroids x3 days completed. Defer additional immunological management to Rheumatology and Pulmonology as this appears not to be affecting directly the kidneys based on renal biopsy results. Rheumatology plan to start with 60mg oral prednisone qd, decreased from yesterday Continue with renal protective strategy, avoid nephrotoxic agents. No urgent dialysis at this time. Continue following labs. Qualifiers: Proteinuria type: isolated Isolated proteinuria type: with unspecified morphologic lesion Qualified Code(s): N06.9 - Isolated proteinuria with unspecified morphologic lesion (5) Gram-negative bacterial infection Current Visit: Yes Status: Acute Blood cultures and wound cultures 07/23/16 growing gram negative rods. ID on board. Continue per Hospitalist plan. (6) Gram-positive cocci bacteremia Current Visit: Yes Status: Acute Blood cultures x2 drawn 07/17/16 growing gram positive cocci. Enterococcus with vancomycin resistance. Infectious Disease following patient. Patient currently on Daptomycin and Flagyl. Clindamycin discontinued. ID on board Avoid nephrotoxic agents, continue with renal protective strategy. (7) CORINNE positive Current Visit: Yes Status: Acute CORINNE titer 1:1280 (previously negative in 2015) Rheumatology on board. (8) P-ANCA and MPO antibodies positive Current Visit: Yes Status: Acute ANCA positive 1:5120 SS-A/Ri 60kDa Ab positive at 71, MPO Ab positive at 44. Rheumatology on board. Quantiferon Gold TB completed. HIV negative. (9) Hematuria Current Visit: Yes Status: Acute Hematuria noted on this hospital visit UA, change from prior Urine studies in 2014 which were negative for blood. Continue per plan in assessment above. (10) Diabetes mellitus type 2, uncontrolled Current Visit: Yes Status: Chronic Known history of type II diabetes uncontrolled on parts counterman insulin, receiving high dose steroids. Continue monitoring. Continue per Hospitalist plan. Diet: Diabetic, Cardiac, Renal. Qualifiers: Diabetes mellitus complication status: with neurologic complications Diabetes mellitus complication detail: with unspecified neuropathy Diabetes mellitus parts counterman insulin use: with parts counterman use Qualified Code(s): E11.40 - Type 2 diabetes mellitus with diabetic neuropathy, unspecified; E11.65 - Type 2 diabetes mellitus with hyperglycemia; Z79.4 - long term care administrator (current) use of insulin (11) Diffuse pulmonary alveolar hemorrhage Current Visit: Yes Status: Acute Preliminary read of renal biopsy revealed no crescents or ANCA associate vasculitis findings. 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 Continues to cough up small specks of black-clot like blood. Incentive spirometry, patient requiring 5L nasal cannula. May require social work to set up home oxygen as needed. Continue per plan of Hospitalist. (12) Anemia Current Visit: Yes Status: Acute Patient with known history of anemia. Normocytic anemia upon review of labs. Hb 9.3 on arrival to [facility]. Hb at 8.5 this morning. Continue to monitor labs Qualifiers: Anemia type: unspecified type Qualified Code(s): D64.9 - Anemia, unspecified Subjective Principal diagnosis: hemoptysis Interval history: Patient reports doing "okay" overnight, reports episodes of significant right leg pain similar to that prior to fasciotomy on 07/23/16 evening. Patient continues to report coughing up small specks of dark black blood, no bright red blood. Reports shortness of breath improving, now on 4L nasal cannula. Patien denies fevers, chills, sweats, nausea, vomiting, headaches, lightheadedness, changes in bowels or bladder, hematuria, dysuria, oligouria, weakness, or loss of sensation. Bp 139-168/62-82, rate 85-100. Cr down to 0.94 from 1.08 yesterday, eGFR >60. Objective - Vital Signs Vital signs: Vital Signs Temp Pulse Resp BP Pulse Ox 07/25/16 04:45 98.5 F 86 18 166/82 96 07/24/16 23:31 98.3 F 100 16 149/76 95 07/24/16 20:49 98.1 F 94 16 168/67 94 07/24/16 15:48 98.1 F 94 19 163/71 94 07/24/16 14:25 85 17 139/62 93 07/24/16 11:45 97.9 F 85 17 139/62 93 Intake and Output 07/24/16 07/25/16 07/25/16 23:59 07:59 15:59 Intake Total 200 / 200 Output Total 550 / 550 410 / 410 Balance -350 / -350 -410 / -410 Intake: IV Fluids 200 / 200 Flagyl Premix 500 MG/100 200 / 200 ML 500 mg In 100 ml @ 100 mls/hr IVPB Q[facility]H [facility] Rx#: [id number] Output: Urine 500 / 500 400 / 400 Other Wound Drainage Right Lower Calf 35 Other: Weight 89.3 kg Blood Glucose* 82 117 Patient Weight 07/25/16 23:59 Weight 89.3 kg - General Appearance General appearance: Present: well-developed, well-nourished, appears started age , obese, chronically ill EENT: Present: PERRL, mucous membranes moist Neck: Present: no JVD, no carotid bruit, supple Respiratory: Present: course breath sounds Cardiology: Present: no murmurs, regular rate, regular rhythm, normal S1, normal S2 Gastrointestinal: Present: normoactive bowel sounds, no tenderness, no guarding Integumentary: Present: no rash, warm and dry Additional Comments: Right PICC line in place, no erythema Neurologic: Present: no focal deficit, no asterixis, alert and oriented x3, strength 5/5, CN 3-12 intact Musculoskeletal: Present: no deformities, no erythema, no cyanosis Additional Comments: 3+ pitting edema right lower extremity, ecchymosis over dorsal aspect of right foot this morning with tenderness, moves toes when prompted, strength 5/5, good sensation, drain in place with serosanguinous fluid. 1+ pitting edema left lower extremity. Psychiatric: Present: mood/affect appropriate, cooperative - Lab 07/25/16 04:27 07/25/16 04:27 Most recent lab results Calcium 9.8 mg/dL (8.6-10.8) 07/25/16 04:27 Magnesium 1.5 mg/dL (1.6-2.6) L 07/24/16 05:04 Urine Creatinine 59 mg/dL 07/13/16 21:00 Urine Total Protein 66 mg/dL (1-14) H 07/13/16 21:00 - VTE Documentation of Mechanical Device: Graduated compression elastic hosiery Consult Discharge Plan - Plan Referrals: Con Vogt CNP [Advanced Practice Nurse] - 08/02/16 3:30 pm Aliyah Prado CNP [Primary Care Provider] - (walk in facilities.. no need for an appointment. Patient will go to rehab upon discharge)
[2016-07-25] MEDS ORDERED: predniSONE 20 MG TABLET PO SCH (09:00)
[2016-07-25] MEDS: Insulin DETEMIR 100 UNIT/ML X5UNITS SQ SCH ×2 (10:18→22:45)
[2016-07-25] MEDS: Cefepime HCl 2,000 MG in D5% in Water (Mini-Bag+) 100 ML IVPB SCH ×2 (10:19→17:48)
--- NOTE | 2016-07-25 10:48 | Internal Med Progress Note ---
Date of Encounter: 07/25/16 Time of Encounter: 10:46 - Assessment and plan (1) Acute on chronic respiratory failure with hypoxia Current Visit: Yes Status: Acute Assessment and plan: Improved respiratory status at baseline continue O2 supplementation (2) Atrial fibrillation Current Visit: Yes Status: Chronic Assessment and plan: on cardizem and betablockers, ventricular rate currently controlled. no AC due to hemoptysis. Qualifiers: Atrial fibrillation type: chronic Qualified Code(s): I48.2 - Chronic atrial fibrillation (3) Bacteremia Current Visit: Yes Status: Acute Assessment and plan: On broad-spectrum antibiotics, follow recommendations by infectious disease. No evidence of vegetation in the transthoracic echo. ID input appreciated (4) Compartment syndrome Current Visit: Yes Status: Acute Assessment and plan: s/p Fasciotomy on 07/24/16 Vascular surgery consultation appreciated continue wound care as per surgery pain control Qualifiers: Compartment syndrome type: non-traumatic Compartment syndrome location: lower extremity Laterality: right Qualified Code(s): M79.A21 - Nontraumatic compartment syndrome of right lower extremity (5) Diabetes mellitus type 2, uncontrolled Current Visit: Yes Status: Chronic Assessment and plan: noted to be hypoglycemic due to decreased PO intake Decreased Levemir to 15units BID will closely monitor FS and BG continue Insulin SS as needed Qualifiers: Diabetes mellitus complication status: with neurologic complications Diabetes mellitus complication detail: with unspecified neuropathy Diabetes mellitus assisted insulin use: with terminal gauger use Qualified Code(s): E11.40 - Type 2 diabetes mellitus with diabetic neuropathy, unspecified; E11.65 - Type 2 diabetes mellitus with hyperglycemia; Z79.4 - extermination supervisor (current) use of insulin (6) Diffuse pulmonary alveolar hemorrhage Current Visit: Yes Status: Acute Assessment and plan: 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 Continue with prednisone 80 mg daily. Bacteremia, antibiotics according to recommendations by our infectious disease team. Patient does not have hemoptysis today. She continues on by mouth steroids as recommended by rheumatology. She still requires oxygen supplementation. No other interventions at this point due to concomitant infections, bacteremia and status post fasciotomy due to compartment syndrome and fasciitis. (7) DVT prophylaxis Current Visit: No Status: Acute Assessment and plan: We will avoid heparin due to hemoptysis. Continue with intermittent compression devices. (8) Fasciitis Current Visit: Yes Status: Acute Assessment and plan: Status post fasciotomy (07/24/16) Plan as listed above Leukocytosis improving continue IV abx (Daptomycin Day 5, Cefepime-Day 1, Flagyl-Day 3) (9) Rheumatoid arthritis Current Visit: Yes Status: Chronic Qualifiers: Rheumatoid arthritis location: unspecified site Rheumatoid factor presence : unspecified presence Qualified Code(s): M06.9 - Rheumatoid arthritis, unspecified - Subjective Interval history: Seen and examined at bedside. Resting in bed and reports of pain in RLE s/p fasciotomy for compartment syndrome. Pain controlled with current regimen. Also reports of difficulty eating due to irritated oral ulcer caused by her dentures. Pt tolerating soft and liquid food well without any difficulties. - Constitutional Vitals: Temp Pulse Resp BP Pulse Ox 97.7 F 93 21 149/81 94 07/25/16 08:55 07/25/16 08:55 07/25/16 08:55 07/25/16 08:55 07/25/16 08:55 General appearance: Present: cooperative, A&O X 3, pleasant, no acute distress, obese - Head Head exam: Present: atraumatic, normocephalic - Eye Eye exam: Present: normal appearance, conjuntiva pink, sclera anicteric - Respiratory Respiratory exam: Present: CTAB. Absent: accessory muscle use, rales, rhonchi, wheezes - Cardiovascular Cardiovascular exam: Present: RRR, +S1, +S2. Absent: diastolic murmur, gallop, rubs, systolic murmur - GI/Abdominal GI/Abdominal exam: Present: normal bowel sounds, soft, no peritoneal signs. Absent: distended, tenderness - Extremities Exam Additional comments: RLE wrapped in dressing with YAMEL drain in place, tender to palpation mild LLE edema - Neurological Exam Neurological exam: Present: alert, oriented X3 - Psychiatric Psychiatric exam: Present: normal affect, normal mood Internal Medicine: Result - Labs CBC & Chem 7: 07/25/16 04:27 07/25/16 04:27 Labs: Short CBC 07/25/16 Range/Units 04:27 WBC 22.0 H (4.3-11.1) K/mcL Hgb 8.5 L (11.5-15.4) g/dL Hct 27.4 L (35.3-44.9) % Plt Count 136 L (140-400) K/mcL Neutrophils # 19.3 H (1.6-8.9) K/mcL BMP 07/25/16 04:27 Sodium 143 Potassium 3.7 Chloride 103 Carbon Dioxide 31 H BUN 29 H Creatinine 0.94 Glucose 60 L Calcium 9.8 - ABG Interpretation ABG results: PT/INR, D-dimer PT 10.1 Seconds (9.4-12.1) 07/23/16 05:02 D-Dimer 6124 ng/mLFEU (0-500) H 07/23/16 05:02 - VTE Documentation of Mechanical Device: Graduated compression elastic hosiery Consult Discharge Plan - Plan Referrals: Con Vogt CNP [Advanced Practice Nurse] - 08/02/16 3:30 pm Aliyah Prado CNP [Primary Care Provider] - (walk in facilities.. no need for an appointment. Patient will go to rehab upon discharge)
[2016-07-25] MEDS: *HR* Morphine 2 MG/ML SYRINGE IV PRN ×3 (11:45→22:46)
--- NOTE | 2016-07-25 15:49 | Infectious Disease Progress No ---
Date of Encounter: 07/25/16 Time of Encounter: 15:45 - Assessment and Plan (1) Gram-positive bacteremia Current Visit: Yes Status: Acute Blood cultures drawn 07/18/16 are positive 2/2 sets for VRE. Additional cultures drawn 07/19/16 are positive 1/2 sets for VRE. Repeat cultures drawn 07/23/16 and 07/24/16 negative for VRE, but positive for E. coli. Source unclear. No obvious source identified. Continue Daptomycin IV. Duration of treatment depends on the clinical picture. Monitor renal function and dose-adjust antibiotics. Check CK level weekly for duration of Daptomycin. (2) Gram-negative bacteremia Current Visit: Yes Status: Acute Blood cultures drawn 07/23/16 are positive 2/2 sets for GNR. PCR picked up E. coli. --> originally reported out as GPR, but changed this morning to GNR. Additional blood cultures drawn 07/24/16 are positive 2/2 sets for E. coli as well. Source likely RLE infection. continue Cefepime 2 grams IV Q12H. Repeat blood cultures x 2 sets in the AM. Duration of treatment depends on the clinical picture. Monitor renal function and dose-adjust antibiotics. (3) Compartment syndrome Current Visit: Yes Status: Acute Status post fasciotomy 07/23/[address] Lim. Causative organism unclear, but surgical specimen culture shows GNR and blood culture BCID shows E. coli. Continue Cefepime as above. Continue flagyl 500mg IV TID. Continue wound care as outline per the vascular team. Duration of treatment depends on the clinical picture. Qualifiers: Compartment syndrome type: non-traumatic Compartment syndrome location: lower extremity Laterality: right Qualified Code(s): M79.A21 - Nontraumatic compartment syndrome of right lower extremity (4) Acute on chronic respiratory failure with hypoxia Current Visit: Yes Status: Acute Secondary to alveolar hemorrhage. Status post bronch - report reviewed. High index of suspicion for vasculitis per rheumatology. Hemoptysis has resolved. Continue to observe. (5) CORINNE positive Current Visit: Yes Status: Acute Rheumatology following. (6) Diffuse pulmonary alveolar hemorrhage Current Visit: Yes Status: Acute (7) Hemoptysis Current Visit: Yes Status: Acute Secondary to diffuse pulmonary alveolar hemorrhage. Resolved. (8) Elevated troponin Current Visit: Yes Status: Acute Likely demand ischemia. (9) Atrial fibrillation with RVR Current Visit: Yes Status: Acute Rate controlled. Management per the primary team. - Subjective Interval history: Patient seen and examined. No acute events noted overnight. Patient resting quietly in bed. States she is doing okay today, but continues to have severe pain in the right leg. States she was given pain medication, which currently has her pain free at this time. Denies fevers or chills or rigors. Denies chest pain or shortness of breath. States she is no longer coughing up blood, but she is coughing up dark brown sputum. Denies nausea, vomiting, or diarrhea. Denies abdominal pain, but states her appetite is not very good. Denies urinary complaints and reports her last BM was yesterday. Infect Dis PN-Objective Data - Labs CBC & Chem 7: 07/25/16 04:27 07/25/16 04:27 Labs: Laboratory Results - last 24 hr 07/24/16 07/24/16 07/24/16 07:15 08:29 11:41 WBC RBC Hgb Hct MCV MCH MCHC RDW Plt Count MPV Immature Gran % Seg Neutrophils % Lymphocytes % Monocytes % Eosinophils % Basophils % Neutrophils # Lymphocytes # Monocytes # Eosinophils # Basophils # Nucleated RBCs/100 WBC Sodium Potassium Chloride Carbon Dioxide BUN Creatinine Est GFR ( Amer) Est GFR (Non-Af Amer) BUN/Creatinine Ratio Glucose POC Glucose 125 H 173 H Calculated Osmolality Calcium Creatine Kinase A. baumannii (PCR) Not Detected Jenna albicans (PCR) Not Detected C. glabrata (PCR) Not Detected C. krusei (PCR) Not Detected C. parapsilosis (PCR) Not Detected C. tropicalis (PCR) Not Detected Enterobacteriac sp PCR DETECTED A E. cloacae complex PCR Not Detected Enterococcus sp PCR Not Detected E. coli (PCR) DETECTED A H. influenzae (PCR) Not Detected Klebsiella oxytoca PCR Not Detected Klebsiella pneumoniae Not Detected List. monocytogenes PCR Not Detected N. meningitidis (PCR) Not Detected Proteus species (PCR) Not Detected Serratia marcescens PCR Not Detected Staphylococcus sp PCR Not Detected Staph aureus (PCR) Not Detected mecA-Methicil Res Gene Not Detected Streptococcus sp PCR Not Detected Group A Strep DNA Not Detected Group B Strep (PCR) Not Detected Strep pneumoniae (PCR) Not Detected P. aeruginosa (PCR) Not Detected Peter/B-Vanco Res Genes Not Detected KPC (blaKPC) Detect PCR Not Detected 07/24/16 07/24/16 07/25/16 16:51 20:43 00:49 WBC RBC Hgb Hct MCV MCH MCHC RDW Plt Count MPV Immature Gran % Seg Neutrophils % Lymphocytes % Monocytes % Eosinophils % Basophils % Neutrophils # Lymphocytes # Monocytes # Eosinophils # Basophils # Nucleated RBCs/100 WBC Sodium Potassium Chloride Carbon Dioxide BUN Creatinine Est GFR ( Amer) Est GFR (Non-Af Amer) BUN/Creatinine Ratio Glucose POC Glucose 81 82 158 H Calculated Osmolality Calcium Creatine Kinase A. baumannii (PCR) Jenna albicans (PCR) C. glabrata (PCR) C. krusei (PCR) C. parapsilosis (PCR) C. tropicalis (PCR) Enterobacteriac sp PCR E. cloacae complex PCR Enterococcus sp PCR E. coli (PCR) H. influenzae (PCR) Klebsiella oxytoca PCR Klebsiella pneumoniae List. monocytogenes PCR N. meningitidis (PCR) Proteus species (PCR) Serratia marcescens PCR Staphylococcus sp PCR Staph aureus (PCR) mecA-Methicil Res Gene Streptococcus sp PCR Group A Strep DNA Group B Strep (PCR) Strep pneumoniae (PCR) P. aeruginosa (PCR) Peter/B-Vanco Res Genes KPC (blaKPC) Detect PCR 07/25/16 07/25/16 07/25/16 04:27 04:27 04:27 WBC 22.0 H RBC 3.06 L Hgb 8.5 L Hct 27.4 L MCV 89.5 MCH 27.8 L MCHC 31.0 L RDW 19.5 H Plt Count 136 L MPV 10.3 Immature Gran % 1.3 Seg Neutrophils % 87.6 Lymphocytes % 7.6 Monocytes % 3.4 Eosinophils % 0.0 Basophils % 0.1 Neutrophils # 19.3 H Lymphocytes # 1.7 Monocytes # 0.8 Eosinophils # 0.0 Basophils # 0.0 Nucleated RBCs/100 WBC 0.1 H Sodium 143 Potassium 3.7 Chloride 103 Carbon Dioxide 31 H BUN 29 H Creatinine 0.94 Est GFR ( Amer) > 60 Est GFR (Non-Af Amer) > 60 BUN/Creatinine Ratio 31 H Glucose 60 L POC Glucose Calculated Osmolality 300 Calcium 9.8 Creatine Kinase 123 A. baumannii (PCR) Jenna albicans (PCR) C. glabrata (PCR) C. krusei (PCR) C. parapsilosis (PCR) C. tropicalis (PCR) Enterobacteriac sp PCR E. cloacae complex PCR Enterococcus sp PCR E. coli (PCR) H. influenzae (PCR) Klebsiella oxytoca PCR Klebsiella pneumoniae List. monocytogenes PCR N. meningitidis (PCR) Proteus species (PCR) Serratia marcescens PCR Staphylococcus sp PCR Staph aureus (PCR) mecA-Methicil Res Gene Streptococcus sp PCR Group A Strep DNA Group B Strep (PCR) Strep pneumoniae (PCR) P. aeruginosa (PCR) Peter/B-Vanco Res Genes KPC (blaKPC) Detect PCR 07/25/16 07:34 WBC RBC Hgb Hct MCV MCH MCHC RDW Plt Count MPV Immature Gran % Seg Neutrophils % Lymphocytes % Monocytes % Eosinophils % Basophils % Neutrophils # Lymphocytes # Monocytes # Eosinophils # Basophils # Nucleated RBCs/100 WBC Sodium Potassium Chloride Carbon Dioxide BUN Creatinine Est GFR ( Amer) Est GFR (Non-Af Amer) BUN/Creatinine Ratio Glucose POC Glucose 117 H Calculated Osmolality Calcium Creatine Kinase A. baumannii (PCR) Jenna albicans (PCR) C. glabrata (PCR) C. krusei (PCR) C. parapsilosis (PCR) C. tropicalis (PCR) Enterobacteriac sp PCR E. cloacae complex PCR Enterococcus sp PCR E. coli (PCR) H. influenzae (PCR) Klebsiella oxytoca PCR Klebsiella pneumoniae List. monocytogenes PCR N. meningitidis (PCR) Proteus species (PCR) Serratia marcescens PCR Staphylococcus sp PCR Staph aureus (PCR) mecA-Methicil Res Gene Streptococcus sp PCR Group A Strep DNA Group B Strep (PCR) Strep pneumoniae (PCR) P. aeruginosa (PCR) Peter/B-Vanco Res Genes KPC (blaKPC) Detect PCR Cultures: Cultures 07/23/16 17:16 Blood Culture - Preliminary Peripheral Venipuncture Gram Negative Omar 07/23/16 17:20 Blood Culture - Preliminary Peripheral Venipuncture Gram Negative Omar 07/23/16 21:20 Surgical Biopsy Culture - Preliminary Right Leg Gram Negative Omar 07/24/16 00:34 Wound Culture - Preliminary Right Leg Gram Negative Omar 07/24/16 00:34 Wound Culture - Preliminary Right Leg Gram Negative Omar 07/24/16 08:38 Blood Culture - Preliminary Peripheral Venipuncture Gram Negative Omar 07/24/16 08:29 Blood Culture - Preliminary Peripheral Venipuncture Gram Negative Omar 07/19/16 12:31 Blood Culture - Final Peripheral Venipuncture No growth. 07/19/16 12:24 Blood Culture - Preliminary Peripheral Venipuncture Gram Positive Cocci 07/18/16 11:32 Blood Culture - Final Peripheral Venipuncture Gram Positive Cocci 07/18/16 11:37 Blood Culture - Final Peripheral Venipuncture Vanc. Resistant Enterococcus 07/11/16 09:07 Blood Culture - Final Peripheral Venipuncture No growth. 07/13/16 12:30 Sputum Culture - Final Sputum 07/11/16 16:47 Respiratory Culture - Final Right Lower Lobe Lung Normal upper respiratory tract juan m. No apparent pathogens isolated. 07/11/16 16:47 Gram Stain - Final Right Lower Lobe Lung 07/11/16 16:47 Acid Fast Stain - Final Right Lower Lobe Lung 07/12/16 23:12 Legionella Antigen - Final Urine,Clean Catch Streptococcus pneumoniae Antigen (M - Final Serology 07/24/16 07/20/16 07/19/16 Range/Units 08:29 17:46 12:24 Urine Color (Yellow) Urine Clarity (Clear) Urine pH (5.0-8.0) pH Units Ur Specific [place] (1.010-1.025) Urine Protein (Neg-Trace) mg/dL Urine Glucose (UA) (Normal) mg/dL Urine Ketones (Negative) mg/dL Urine Blood (Negative) Urine Nitrite (Negative) Urine Bilirubin (Negative) Urine Urobilinogen (Normal) mg/dL Ur Leukocyte Esterase (Negative) Urine Microscopic RBC (0-3) per hpf Urine Microscopic WBC (0-3) per hpf Ur Squamous Epith Cells (None-Few) per lpf Urine Bacteria (None-Few) per hpf Hyaline Casts (None-Few) per lpf Urine Yeast Ur Culture Indicated? (NO) Urine Creatinine mg/dL Urine Microalbumin mg/L Microalb/Creat Ratio (0-30) Protein/Creatinin Ratio (0-0.20) mg/mg Urine Total Protein (1-14) mg/dL Urine Hemosiderin (Negative) Fluid Source Fluid Volume mL Fluid Appearance (Clear) Fluid RBC Fld Tot Nucleated Cell Fluid Seg Neutrophil % % Fluid Lymphocytes % % Fluid Monocytes % % Fluid Other Cells % % A. baumannii (PCR) Not Detected Not Detected (Not Detect) Jenna albicans (PCR) Not Detected Not Detected (Not Detect) C. glabrata (PCR) Not Detected Not Detected (Not Detect) C. krusei (PCR) Not Detected Not Detected (Not Detect) C. parapsilosis (PCR) Not Detected Not Detected (Not Detect) C. tropicalis (PCR) Not Detected Not Detected (Not Detect) Enterobacteriac sp PCR DETECTED A Not Detected (Not Detect) E. cloacae complex PCR Not Detected Not Detected (Not Detect) Enterococcus sp PCR Not Detected DETECTED A (Not Detect) E. coli (PCR) DETECTED A Not Detected (Not Detect) H. influenzae (PCR) Not Detected Not Detected (Not Detect) Hepatitis A IgM Ab (Nonreactive) Hep Bs Antigen (Nonreactive) Hep B Core IgM Ab (Nonreactive) Hepatitis C Ab Screen (Nonreactive) HIV Ag/Ab Combo Qual (Nonreactive) Klebsiella oxytoca PCR Not Detected Not Detected (Not Detect) Klebsiella pneumoniae Not Detected Not Detected (Not Detect) List. monocytogenes PCR Not Detected Not Detected (Not Detect) N. meningitidis (PCR) Not Detected Not Detected (Not Detect) Proteus species (PCR) Not Detected Not Detected (Not Detect) Serratia marcescens PCR Not Detected Not Detected (Not Detect) Staphylococcus sp PCR Not Detected Not Detected (Not Detect) Staph aureus (PCR) Not Detected Not Detected (Not Detect) mecA-Methicil Res Gene Not Detected N/A (Not Detect) Streptococcus sp PCR Not Detected Not Detected (Not Detect) Group A Strep DNA Not Detected Not Detected (Not Detect) Group B Strep (PCR) Not Detected Not Detected (Not Detect) Strep pneumoniae (PCR) Not Detected Not Detected (Not Detect) P. aeruginosa (PCR) Not Detected Not Detected (Not Detect) TB (QFT) Gold In Tube INDETERMINATE (Negative) TB Test (QFT) Nil 0.03 IU/mL TB Test Mitogen - Nil 0.16 IU/mL Peter/B-Vanco Res Genes Not Detected DETECTED A (Not Detect) KPC (blaKPC) Detect PCR Not Detected N/A (Not Detect) 07/18/16 07/17/16 07/14/16 Range/Units 11:37 10:31 13:05 Urine Color (Yellow) Urine Clarity (Clear) Urine pH (5.0-8.0) pH Units Ur Specific [place] (1.010-1.025) Urine Protein (Neg-Trace) mg/dL Urine Glucose (UA) (Normal) mg/dL Urine Ketones (Negative) mg/dL Urine Blood (Negative) Urine Nitrite (Negative) Urine Bilirubin (Negative) Urine Urobilinogen (Normal) mg/dL Ur Leukocyte Esterase (Negative) Urine Microscopic RBC (0-3) per hpf Urine Microscopic WBC (0-3) per hpf Ur Squamous Epith Cells (None-Few) per lpf Urine Bacteria (None-Few) per hpf Hyaline Casts (None-Few) per lpf Urine Yeast Ur Culture Indicated? (NO) Urine Creatinine mg/dL Urine Microalbumin mg/L Microalb/Creat Ratio (0-30) Protein/Creatinin Ratio (0-0.20) mg/mg Urine Total Protein (1-14) mg/dL Urine Hemosiderin (Negative) Fluid Source Fluid Volume mL Fluid Appearance (Clear) Fluid RBC Fld Tot Nucleated Cell Fluid Seg Neutrophil % % Fluid Lymphocytes % % Fluid Monocytes % % Fluid Other Cells % % A. baumannii (PCR) Not Detected (Not Detect) Jenna albicans (PCR) Not Detected (Not Detect) C. glabrata (PCR) Not Detected (Not Detect) C. krusei (PCR) Not Detected (Not Detect) C. parapsilosis (PCR) Not Detected (Not Detect) C. tropicalis (PCR) Not Detected (Not Detect) Enterobacteriac sp PCR Not Detected (Not Detect) E. cloacae complex PCR Not Detected (Not Detect) Enterococcus sp PCR DETECTED A (Not Detect) E. coli (PCR) Not Detected (Not Detect) H. influenzae (PCR) Not Detected (Not Detect) Hepatitis A IgM Ab (Nonreactive) Hep Bs Antigen (Nonreactive) Hep B Core IgM Ab (Nonreactive) Hepatitis C Ab Screen (Nonreactive) HIV Ag/Ab Combo Qual Nonreactive (Nonreactive) Klebsiella oxytoca PCR Not Detected (Not Detect) Klebsiella pneumoniae Not Detected (Not Detect) List. monocytogenes PCR Not Detected (Not Detect) N. meningitidis (PCR) Not Detected (Not Detect) Proteus species (PCR) Not Detected (Not Detect) Serratia marcescens PCR Not Detected (Not Detect) Staphylococcus sp PCR Not Detected (Not Detect) Staph aureus (PCR) Not Detected (Not Detect) mecA-Methicil Res Gene Not Detected (Not Detect) Streptococcus sp PCR Not Detected (Not Detect) Group A Strep DNA Not Detected (Not Detect) Group B Strep (PCR) Not Detected (Not Detect) Strep pneumoniae (PCR) Not Detected (Not Detect) P. aeruginosa (PCR) Not Detected (Not Detect) TB (QFT) Gold In Tube INDETERMINATE (Negative) TB Test (QFT) Nil 0.04 IU/mL TB Test Mitogen - Nil 0.03 IU/mL Peter/B-Vanco Res Genes DETECTED A (Not Detect) KPC (blaKPC) Detect PCR Not Detected (Not Detect) 07/13/16 07/13/16 07/13/16 Range/Units 21:00 21:00 21:00 Urine Color (Yellow) Urine Clarity (Clear) Urine pH (5.0-8.0) pH Units Ur Specific [place] (1.010-1.025) Urine Protein (Neg-Trace) mg/dL Urine Glucose (UA) (Normal) mg/dL Urine Ketones (Negative) mg/dL Urine Blood (Negative) Urine Nitrite (Negative) Urine Bilirubin (Negative) Urine Urobilinogen (Normal) mg/dL Ur Leukocyte Esterase (Negative) Urine Microscopic RBC (0-3) per hpf Urine Microscopic WBC (0-3) per hpf Ur Squamous Epith Cells (None-Few) per lpf Urine Bacteria (None-Few) per hpf Hyaline Casts (None-Few) per lpf Urine Yeast Ur Culture Indicated? (NO) Urine Creatinine 59 58 mg/dL Urine Microalbumin 235 mg/L Microalb/Creat Ratio 405 H (0-30) Protein/Creatinin Ratio 1.12 H (0-0.20) mg/mg Urine Total Protein 66 H (1-14) mg/dL Urine Hemosiderin NEGATIVE (Negative) Fluid Source Fluid Volume mL Fluid Appearance (Clear) Fluid RBC Fld Tot Nucleated Cell Fluid Seg Neutrophil % % Fluid Lymphocytes % % Fluid Monocytes % % Fluid Other Cells % % A. baumannii (PCR) (Not Detect) Jenna albicans (PCR) (Not Detect) C. glabrata (PCR) (Not Detect) C. krusei (PCR) (Not Detect) C. parapsilosis (PCR) (Not Detect) C. tropicalis (PCR) (Not Detect) Enterobacteriac sp PCR (Not Detect) E. cloacae complex PCR (Not Detect) Enterococcus sp PCR (Not Detect) E. coli (PCR) (Not Detect) H. influenzae (PCR) (Not Detect) Hepatitis A IgM Ab (Nonreactive) Hep Bs Antigen (Nonreactive) Hep B Core IgM Ab (Nonreactive) Hepatitis C Ab Screen (Nonreactive) HIV Ag/Ab Combo Qual (Nonreactive) Klebsiella oxytoca PCR (Not Detect) Klebsiella pneumoniae (Not Detect) List. monocytogenes PCR (Not Detect) N. meningitidis (PCR) (Not Detect) Proteus species (PCR) (Not Detect) Serratia marcescens PCR (Not Detect) Staphylococcus sp PCR (Not Detect) Staph aureus (PCR) (Not Detect) mecA-Methicil Res Gene (Not Detect) Streptococcus sp PCR (Not Detect) Group A Strep DNA (Not Detect) Group B Strep (PCR) (Not Detect) Strep pneumoniae (PCR) (Not Detect) P. aeruginosa (PCR) (Not Detect) TB (QFT) Gold In Tube (Negative) TB Test (QFT) Nil IU/mL TB Test Mitogen - Nil IU/mL Peter/B-Vanco Res Genes (Not Detect) KPC (blaKPC) Detect PCR (Not Detect) 07/13/16 07/13/16 07/11/16 Range/Units 21:00 16:45 16:47 Urine Color Yellow (Yellow) Urine Clarity Cloudy A (Clear) Urine pH 6.0 (5.0-8.0) pH Units Ur Specific [place] 1.025 (1.010-1.025) Urine Protein 100 H (Neg-Trace) mg/dL Urine Glucose (UA) >=1000 H (Normal) mg/dL Urine Ketones Negative (Negative) mg/dL Urine Blood Moderate H (Negative) Urine Nitrite Negative (Negative) Urine Bilirubin Negative (Negative) Urine Urobilinogen Normal (Normal) mg/dL Ur Leukocyte Esterase Negative (Negative) Urine Microscopic RBC 0-3 (0-3) per hpf Urine Microscopic WBC 3-5 H (0-3) per hpf Ur Squamous Epith Cells Many H (None-Few) per lpf Urine Bacteria None Seen (None-Few) per hpf Hyaline Casts Few (None-Few) per lpf Urine Yeast Test Not Performed Ur Culture Indicated? NO (NO) Urine Creatinine mg/dL Urine Microalbumin mg/L Microalb/Creat Ratio (0-30) Protein/Creatinin Ratio (0-0.20) mg/mg Urine Total Protein (1-14) mg/dL Urine Hemosiderin (Negative) Fluid Source RLL BAL Fluid Volume 22 mL Fluid Appearance Cloudy A (Clear) Fluid RBC TNP Fld Tot Nucleated Cell TNP Fluid Seg Neutrophil % 27.0 % Fluid Lymphocytes % 50.0 % Fluid Monocytes % 2.0 % Fluid Other Cells % 21.0 % A. baumannii (PCR) (Not Detect) Jenna albicans (PCR) (Not Detect) C. glabrata (PCR) (Not Detect) C. krusei (PCR) (Not Detect) C. parapsilosis (PCR) (Not Detect) C. tropicalis (PCR) (Not Detect) Enterobacteriac sp PCR (Not Detect) E. cloacae complex PCR (Not Detect) Enterococcus sp PCR (Not Detect) E. coli (PCR) (Not Detect) H. influenzae (PCR) (Not Detect) Hepatitis A IgM Ab Nonreactive (Nonreactive) Hep Bs Antigen Nonreactive (Nonreactive) Hep B Core IgM Ab Nonreactive (Nonreactive) Hepatitis C Ab Screen Nonreactive (Nonreactive) HIV Ag/Ab Combo Qual (Nonreactive) Klebsiella oxytoca PCR (Not Detect) Klebsiella pneumoniae (Not Detect) List. monocytogenes PCR (Not Detect) N. meningitidis (PCR) (Not Detect) Proteus species (PCR) (Not Detect) Serratia marcescens PCR (Not Detect) Staphylococcus sp PCR (Not Detect) Staph aureus (PCR) (Not Detect) mecA-Methicil Res Gene (Not Detect) Streptococcus sp PCR (Not Detect) Group A Strep DNA (Not Detect) Group B Strep (PCR) (Not Detect) Strep pneumoniae (PCR) (Not Detect) P. aeruginosa (PCR) (Not Detect) TB (QFT) Gold In Tube (Negative) TB Test (QFT) Nil IU/mL TB Test Mitogen - Nil IU/mL Peter/B-Vanco Res Genes (Not Detect) KPC (blaKPC) Detect PCR (Not Detect) Exam - Constitutional Vitals: Temp Pulse Resp BP Pulse Ox 97.6 F 92 20 148/73 90 07/25/16 11:35 07/25/16 11:35 07/25/16 11:35 07/25/16 11:35 07/25/16 11:35 General appearance: cooperative, no acute distress, obese - Head Head exam: Present: atraumatic, normal inspection, normocephalic - Eye Eye exam: Present: EOMI, normal appearance, PERRL Pupils: Present: normal accommodation Additional comments: No subconjunctival hemorrhage noted. - ENT ENT exam: Present: mucous membranes moist - Neck Neck exam: Present: normal inspection - Respiratory Respiratory exam: Present: rhonchi (Throughout). Absent: rales, respiratory distress, wheezes - Cardiovascular Cardiovascular exam: Present: RRR, +S1, +S2 - GI/Abdominal GI/Abdominal exam: Present: distended (obese), normal bowel sounds, soft. Absent: tenderness - Extremities Exam Extremities exam: Present: pedal edema (3+ RLE, 2+ LLE), tenderness (RLE) Additional comments: RLE dressing C/D/I with YAMEL drain draining sanguinous drainage. - Neurological Exam Neurological exam: Present: alert, oriented X3, no focal deficits - Psychiatric Psychiatric exam: Present: normal affect, normal mood - Skin Skin exam: Present: dry, intact, normal color, warm - VTE Documentation of Mechanical Device: Graduated compression elastic hosiery Consult Discharge Plan - Plan Referrals: Con Vogt CNP [Advanced Practice Nurse] - 08/02/16 3:30 pm Aliyah Prado CNP [Primary Care Provider] - (walk in facilities.. no need for an appointment. Patient will go to rehab upon discharge) - Attending Attestation I examined this patient and my medical decision-making was reviewed with the MECHANICAL ENGINEERING TECHNOLOGIST/PA/Advanced Practice Nurse/Resident Physician. I agree with the documented findings, disposition and treatment plan as described except to the extent set forth below.
[2016-07-25] MEDS: DAPTOMYCIN IVPB SCH (16:28)
[2016-07-25] MEDS: SODIUM CHLORIDE 0.9% IVPB SCH (16:28)
--- NOTE | 2016-07-25 18:45 | Vascular/[facility] Progress Note ---
Date of Encounter: 07/25/16 Time of Encounter: 16:50 - Assessment and plan (1) Compartment syndrome Current Visit: Yes Status: Acute The patient underwent a right lower extremity 4 compartment fasciotomy due to fasciitis of an infectious etiology. The patient continues to improve. Clinically her edema has decreased, her range of motion has improved, her compartments are soft. Her tenderness has decreased and her incisions appear to be healing well. Her drain has serous output and is decreasing. She has two area of ecchymosis in the right foot. There is no focal tenderness or crepitance. The calf eccymosis has been present since prior to surgery. Continue with antibiotics and await cultures. Will leave drain in place. Qualifiers: Compartment syndrome type: non-traumatic Compartment syndrome location: lower extremity Laterality: right Qualified Code(s): M79.A21 - Nontraumatic compartment syndrome of right lower extremity (2) Infectious fasciitis Current Visit: Yes Status: Acute (3) Cellulitis of right leg Current Visit: Yes Status: Acute (4) Hyperlipidemia Current Visit: Yes Status: Chronic Qualifiers: Hyperlipidemia type: unspecified Qualified Code(s): E78.5 - Hyperlipidemia , unspecified (5) Hypertension Current Visit: Yes Status: Chronic Qualifiers: Hypertension type: essential hypertension Qualified Code(s): I10 - Essential (primary) hypertension (6) Tobacco abuse Current Visit: No Status: Chronic (7) Chronic kidney disease, stage 3 Current Visit: Yes Status: Chronic - Subjective Interval history: The patient reports that she continues to feel better today. She states taht her right leg pain continues to decrease. She denies fevers or chills. She denies chest pain or shortness of breath. Vital Signs, Last 4 Hours Temp Pulse Resp BP Pulse Ox 07/25/16 16:17 97.6 F 80 16 167/74 96 - Physical Examination General: Present: Conversant, No Apparent Distress Cardiac: Present: No Murmur Lungs: Present: Normal Breath Sounds Neuro: Present: Alert and responsive, No focal deficits noted Vascular: Present: Normal capillary refill, Pulse, normal (pedal signals are polyphasic), Edema (1+ right leg edema), Surgical incisions (incisions are clean , dry and intact without erythema or draiange). Absent: Cyanosis Abdomen: Present: Soft Skin: Present: Other (ecchymosis present on right forefoot, similar to ecchymosis that has been present on right calf) - VTE Documentation of Mechanical Device: Graduated compression elastic hosiery Results 07/25/16 04:27 07/25/16 04:27 Lab Results, Last 24 hours 07/25/16 07/25/16 04:27 04:27 WBC 22.0 H Hgb 8.5 L Hct 27.4 L Plt Count 136 L Sodium 143 Potassium 3.7 Chloride 103 Carbon Dioxide 31 H BUN 29 H Creatinine 0.94 Glucose 60 L Calcium 9.8 Consult Discharge Plan - Plan Referrals: Con Vogt CNP [Advanced Practice Nurse] - 08/02/16 3:30 pm Aliyah Prado CNP [Primary Care Provider] - (walk in facilities.. no need for an appointment. Patient will go to rehab upon discharge)
[2016-07-26] MEDS: *HR* HYDROcodone/Acet 5/325 mg TABLET PO PRN ×3 (00:35→11:43)
[2016-07-26] MEDS: Insulin LISPRO 300 UNITS/3 ML VIAL SQ SCH ×8 (02:14→22:15)
[2016-07-26] MEDS: *HR* OxyCODONE/APAP 10/325 TABLET PO PRN ×4 (03:03→22:14)
[2016-07-26] MEDS: *HR* LORazepam 0.5 MG TABLET PO PRN ×2 (03:10→17:44)
[2016-07-26] MEDS: Cefepime HCl 2,000 MG in D5% in Water (Mini-Bag+) 100 ML IVPB SCH ×2 (04:41→18:37)
[2016-07-26] MEDS: MetroNIDAZOLE 500 MG/100 ML 500 MG/100 ML BAG IVPB SCH ×3 (04:41→18:38)
[2016-07-26 06:27] LABS: Basophils % 0.1 %; Eosinophils # 0.1 K/mcL (0.0-0.6); Eosinophils % 0.3 %; Hematocrit 23.1 % (35.3-44.9); Hemoglobin 7.3 g/dL (11.5-15.4); Immature Granulocytes % 0.7 % (0-4); Lymphocytes # 2.1 K/mcL (0.6-4.6); Lymphocytes % 13.9 %; Mean Corpuscular HGB Conc 31.6 g/dL (31.6-35.5); Mean Corpuscular Hemoglobin 28.4 pg (28.0-33.3); Mean Corpuscular Volume 89.9 fL (83.0-100.0); Mean Platelet Volume 11.3 fL (9.4-12.4); Monocytes # 0.6 K/mcL (0.0-1.3); Monocytes % 3.9 %; Nucleated Red Blood Cells 0.2 /100 WBC (0); Platelet Count 116 K/mcL (140-400); Red Blood Count 2.57 M/mcL (3.82-4.97); Red Cell Distribution Width 20.1 % (11.5-14.5); Segmented Neutrophils % 81.1 %
[2016-07-26 06:45] LABS: BUN/Creatinine Ratio 28 (6-26); Blood Urea Nitrogen 29 mg/dL (7-20); Calcium 9.1 mg/dL (8.6-10.8); Carbon Dioxide 30 mEq/L (19-29); Chloride 103 mEq/L (98-109); Glucose 272 mg/dL (70-99); Magnesium 1.7 mg/dL (1.6-2.6); Osmolality,Calculated 305 (280-300); Phosphorous 3.8 mg/dL (2.3-4.7); Potassium 4.2 mEq/L (3.5-4.5); Sodium 140 mEq/L (136-145); eGFR For African Americans > 60 (> 60); eGFR For Non-African Americans 54 (> 60)
[2016-07-26 08:19] LABS: Basophils % 0.1 %; Eosinophils # 0.1 K/mcL (0.0-0.6); Eosinophils % 0.4 %; Hematocrit 24.2 % (35.3-44.9); Hemoglobin 7.5 g/dL (11.5-15.4); Immature Granulocytes % 1.1 % (0-4); Lymphocytes # 2.5 K/mcL (0.6-4.6); Lymphocytes % 15.1 %; Mean Corpuscular Hemoglobin 27.9 pg (28.0-33.3); Mean Platelet Volume 10.6 fL (9.4-12.4); Monocytes # 0.6 K/mcL (0.0-1.3); Monocytes % 3.6 %; Neutrophils # 13.1 K/mcL (1.6-8.9); Nucleated Red Blood Cells 0.1 /100 WBC (0); Platelet Count 119 K/mcL (140-400); Red Blood Count 2.69 M/mcL (3.82-4.97); Red Cell Distribution Width 19.8 % (11.5-14.5); Segmented Neutrophils % 79.7 %
[2016-07-26] MEDS: Diltiazem CD (24hr) 180 MG CAPSULE PO SCH (08:30)
[2016-07-26] MEDS: Isosorbide MONOnitrate (24 HR) 60 MG TAB.ER.24H PO SCH (08:31)
[2016-07-26] MEDS: predniSONE 20 MG TABLET PO SCH (08:32)
--- NOTE | 2016-07-26 08:57 | Nephrology Progress Note ---
Date of Encounter: 07/26/16 Time of Encounter: 08:57 - Assessment and Plan (1) Hypertension Current Visit: Yes Status: Chronic Bp 167/74, 140/67, 151/63, 127/70, 155/67, rate 80-102 Uncontrolled. Improving. Continue to monitor bp Goal bp <150/90 Continue with Clonidine 0.3mg patch, Continue with Metoprolol 50mg bid. Caution advised due to possible bradycardia with combination with Cardizem. Continue cardizem 180mg qd. Continue Lasix 40mg qd. Increase to 50mg losartan BID Continue monitoring BMP and bp Continue with renal protective strategy, avoid nephrotoxins. No urgent dialysis at this time. Continue to monitor patient's blood pressure. Qualifiers: Hypertension type: essential hypertension Qualified Code(s): I10 - Essential (primary) hypertension (2) Leg pain, right Current Visit: Yes Status: Acute Patient diagnosed with Right leg compartment syndrome. Underwent fasciotoomy and debridement of necrotic subcutaneous and subfascial tissue 07/23/16 evening. Patient has drain in place. WBC 16.5, down from 22.0 yesterday. Wound culture growing E.coli Doppler and CT were negative for DVT. CT revealed possible evidence of inflammation down to the level of the fascia. Continue per Hospitalist plan. (3) Chronic kidney disease, stage 3 Current Visit: Yes Status: Chronic Patient with known history of CKD stage III. Function continues improving, currently at baseline BUN 29, Cr 1.04, GFR 54 Continue to monitor I&O Continue monitoring labs Continue with renal protective strategy, avoid nephrotoxic agents. (4) Proteinuria Current Visit: Yes Status: Chronic Continue to monitor and improve bp, goal <150/90. CORINNE positive, ANCA positive, MPO positive, GBM negative. 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 Final report renal biopsy returned findings suggestive of longstanding chronic hypertension and diabetes, no vasculitis. High dose steroids x3 days completed. Defer additional immunological management to Rheumatology and Pulmonology as this appears not to be affecting directly the kidneys based on renal biopsy results. Rheumatology plan to start with 60mg oral prednisone qd, decreased from yesterday Continue with renal protective strategy, avoid nephrotoxic agents. No urgent dialysis at this time. Continue following labs. Qualifiers: Proteinuria type: isolated Isolated proteinuria type: with unspecified morphologic lesion Qualified Code(s): N06.9 - Isolated proteinuria with unspecified morphologic lesion (5) Gram-negative bacterial infection Current Visit: Yes Status: Acute Blood cultures and wound cultures 07/23/16 growing gram negative rods. E. coli confirmed in cultures and 07/24 x2 ID on board. Continue per Hospitalist plan. (6) Gram-positive cocci bacteremia Current Visit: Yes Status: Acute Blood cultures x2 drawn 07/17/16 growing gram positive cocci. Enterococcus with vancomycin resistance. Infectious Disease following patient. Patient currently on Daptomycin, flagyl, and cefepime. Clindamycin discontinued. ID on board Avoid nephrotoxic agents, continue with renal protective strategy. (7) CORINNE positive Current Visit: Yes Status: Acute CORINNE titer 1:1280 (previously negative in 2015) Rheumatology on board. (8) P-ANCA and MPO antibodies positive Current Visit: Yes Status: Acute ANCA positive 1:5120 SS-A/Ri 60kDa Ab positive at 71, MPO Ab positive at 44. Rheumatology on board. Quantiferon Gold TB completed. HIV negative. (9) Hematuria Current Visit: Yes Status: Acute Hematuria noted on this hospital visit UA, change from prior Urine studies in 2014 which were negative for blood. Continue per plan in assessment above. (10) Diabetes mellitus type 2, uncontrolled Current Visit: Yes Status: Chronic Known history of type II diabetes uncontrolled on half-way insulin, receiving high dose steroids. Continue monitoring. Continue per Hospitalist plan. Diet: Diabetic, Cardiac, Renal. Qualifiers: Diabetes mellitus complication status: with neurologic complications Diabetes mellitus complication detail: with unspecified neuropathy Diabetes mellitus adjunct faculty for medical terminology insulin use: with adjunct faculty for medical terminology use Qualified Code(s): E11.40 - Type 2 diabetes mellitus with diabetic neuropathy, unspecified; E11.65 - Type 2 diabetes mellitus with hyperglycemia; Z79.4 - snf (current) use of insulin (11) Diffuse pulmonary alveolar hemorrhage Current Visit: Yes Status: Acute Preliminary read of renal biopsy revealed no crescents or ANCA associate vasculitis findings. 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 Continues to cough up small specks of black-clot like blood. Incentive spirometry, patient requiring 4L nasal cannula. May require social work to set up home oxygen as needed. Continue per plan of Hospitalist. (12) Anemia Current Visit: Yes Status: Acute Patient with known history of anemia. Normocytic anemia upon review of labs. Hb 9.3 on arrival to [facility]. Hb drop to 7.5 this morning from 8.5 yesterday. Ferrous sulfate bid. B12 and folate levels ordered. Continue to monitor labs Qualifiers: Anemia type: unspecified type Qualified Code(s): D64.9 - Anemia, unspecified Subjective Principal diagnosis: hemoptysis Interval history: Patient reports doing well overnight, feels very sleepy this morning. Reports right leg pain is improved from yesterday. Patient continues coughing up small specks of dark black blood. Reports shortness of breath improving, on 4L nasal cannula. Denies fevers, chills, sweats, nausea, vomiting, headaches, lightheadedness, changes in bowels or bladder, hematuria, dysuria, oligouria, weakness, or loss of sensation. Bp 127-167/67-74, rate 80-102. Objective - Vital Signs Vital signs: Vital Signs Temp Pulse Resp BP Pulse Ox 07/26/16 07:22 97.8 F 88 18 155/67 90 07/26/16 04:21 97.8 F 92 16 127/70 92 07/26/16 00:02 98.6 F 102 18 151/63 94 07/25/16 19:17 97.9 F 75 16 140/67 92 07/25/16 16:17 97.6 F 80 16 167/74 96 07/25/16 11:35 97.6 F 92 20 148/73 90 Intake and Output 07/25/16 07/26/16 07/26/16 23:59 07:59 15:59 Intake Total 540 / 540 Output Total 320 / 320 410 / 410 Balance 220 / 220 -410 / -410 Intake: IV Fluids 300 / 300 Maxipime 2,000 MG In 100 / 100 Dextrose 5% (Minibag+) 100 ML 100 ML @ 200 mls/ hr IVPB Q12HR [facility] Rx#: [id number] Flagyl Premix 500 MG/100 200 / 200 ML 500 mg In 100 ml @ 100 mls/hr IVPB Q6H [facility] Rx#: [id number] Oral 240 / 240 Output: Urine 300 / 300 400 / 400 Wound Drainage 20 20 10 / 10 Right Lower Calf 10 10 Other: Meal Dinner Percent of Meal Consumed 100% Weight 89.2 kg Blood Glucose* 188 240 Patient Weight 07/26/16 23:59 Weight 89.2 kg - General Appearance General appearance: Present: well-developed, well-nourished, appears started age , obese, chronically ill EENT: Present: PERRL, mucous membranes moist Neck: Present: no JVD, no carotid bruit, supple Respiratory: Present: course breath sounds Cardiology: Present: no murmurs, regular rate, regular rhythm, normal S1, normal S2 Gastrointestinal: Present: normoactive bowel sounds, no tenderness, no guarding Integumentary: Present: no rash, warm and dry Neurologic: Present: no focal deficit, no asterixis, alert and oriented x3, strength 5/5, CN 3-12 intact Musculoskeletal: Present: no deformities, no erythema, no cyanosis, no clubbing Additional Comments: 2+ pitting edema right lower extremity, 8" incision over medial aspect of right lower extremity stapled, clean dry and intact without erythema. Left lower extremity 1+ pitting edema. 4" inicision over lateral aspect of right lower extremity stapled, clean dry and intact without erythema. Drain to right lower extremity draining serosanguinous fluid. Good sensation bilaterally, moves toes when prompted. Psychiatric: Present: mood/affect appropriate, cooperative - Lab 07/26/16 08:07 07/26/16 05:45 Most recent lab results Calcium 9.1 mg/dL (8.6-10.8) 07/26/16 05:45 Phosphorus 3.8 mg/dL (2.3-4.7) 07/26/16 05:45 Magnesium 1.7 mg/dL (1.6-2.6) 07/26/16 05:45 Urine Creatinine 59 mg/dL 07/13/16 21:00 Urine Total Protein 66 mg/dL (1-14) H 07/13/16 21:00 - VTE Documentation of Mechanical Device: Graduated compression elastic hosiery Consult Discharge Plan - Plan Referrals: Con Vogt CNP [Advanced Practice Nurse] - 08/02/16 3:30 pm Aliyah Prado CNP [Primary Care Provider] - (walk in facilities.. no need for an appointment. Patient will go to rehab upon discharge)
[2016-07-26] MEDS: Insulin DETEMIR 100 UNIT/ML X5UNITS SQ SCH ×2 (11:44→22:15)
--- NOTE | 2016-07-26 11:57 | Infectious Disease Progress No ---
Date of Encounter: 07/26/16 Time of Encounter: 11:54 - Assessment and Plan (1) Gram-positive bacteremia Current Visit: Yes Status: Acute Blood cultures drawn 07/18/16 are positive 2/2 sets for VRE. Additional cultures drawn 07/19/16 are positive 1/2 sets for VRE. Repeat cultures drawn 07/23/16 and 07/24/16 negative for VRE, but positive for E. coli. Source unclear. No obvious source identified. Continue Daptomycin IV. Duration of treatment depends on the clinical picture, but likely 14 days from the first set of negative blood cultures. Monitor renal function and dose-adjust antibiotics. Check CK level weekly for duration of Daptomycin. (2) Gram-negative bacteremia Current Visit: Yes Status: Acute Blood cultures drawn 07/23/16 are positive 2/2 sets for E. coli. Additional blood cultures drawn 07/24/16 are positive 2/2 sets for E. coli as well. Additional repeat blood cultures drawn this morning at pending x 2 sets. Source likely RLE infection. Continue Cefepime 2 grams IV Q12H. Duration of treatment depends on the clinical picture. Monitor renal function and dose-adjust antibiotics. (3) Compartment syndrome Current Visit: Yes Status: Acute Status post fasciotomy 07/23/[address] Lim. Causative organism E. coli. Continue Cefepime as above. Discontinue Flagyl. Continue wound care as outline per the vascular team. Duration of treatment depends on the clinical picture. Qualifiers: Compartment syndrome type: non-traumatic Compartment syndrome location: lower extremity Laterality: right Qualified Code(s): M79.A21 - Nontraumatic compartment syndrome of right lower extremity (4) Acute on chronic respiratory failure with hypoxia Current Visit: Yes Status: Acute Secondary to alveolar hemorrhage. Status post bronch - report reviewed. High index of suspicion for vasculitis per rheumatology. Hemoptysis has resolved. Continue to observe. (5) CORINNE positive Current Visit: Yes Status: Acute Rheumatology following. (6) Diffuse pulmonary alveolar hemorrhage Current Visit: Yes Status: Acute (7) Hemoptysis Current Visit: Yes Status: Acute Secondary to diffuse pulmonary alveolar hemorrhage. Resolved. (8) Elevated troponin Current Visit: Yes Status: Acute Likely demand ischemia. (9) Atrial fibrillation with RVR Current Visit: Yes Status: Acute Rate controlled. Management per the primary team. (10) Skin lesion of hand Current Visit: Yes Status: Acute Location: Bilateral hands. Etiology unclear: cutaneous vasculitis vs. aspergillus vs. other. Recommend dermatology consult on semi- urgent basis for biopsy. Discussed with Dr. Murillo of the primary team. - Subjective Interval history: Patient seen and examined. No acute events noted overnight. Patient sitting up in bed, eating breakfast. States she is doing okay today, but continues to have pain in the right leg, but states it is improved since yesterday. Denies fevers or chills or rigors. Denies chest pain or shortness of breath. States she is no longer coughing up blood, but she is continues to cough up dark brown sputum. Denies nausea, vomiting, or diarrhea. Denies abdominal pain, but states her appetite is not very good. Denies urinary complaints and reports her last BM was two days ago. Complains of painful bruises to her bilateral hands. Infect Dis PN-Objective Data - Labs CBC & Chem 7: 07/27/16 05:09 07/27/16 05:09 Labs: Laboratory Results - last 24 hr 07/25/16 07/26/16 07/26/16 16:15 05:45 05:45 WBC 14.8 H RBC 2.57 L Hgb 7.3 L Hct 23.1 L MCV 89.9 MCH 28.4 MCHC 31.6 RDW 20.1 H Plt Count 116 L MPV 11.3 Immature Gran % 0.7 Seg Neutrophils % 81.1 Lymphocytes % 13.9 Monocytes % 3.9 Eosinophils % 0.3 Basophils % 0.1 Neutrophils # 12.0 H Lymphocytes # 2.1 Monocytes # 0.6 Eosinophils # 0.1 Basophils # 0.0 Nucleated RBCs/100 WBC 0.2 H Sodium 140 Potassium 4.2 Chloride 103 Carbon Dioxide 30 H BUN 29 H Creatinine 1.04 Est GFR ( Amer) > 60 Est GFR (Non-Af Amer) 54 L BUN/Creatinine Ratio 28 H Glucose 272 H POC Glucose 180 H Calculated Osmolality 305 H Calcium 9.1 Phosphorus 3.8 Magnesium 1.7 Vitamin B12 Folate 07/26/16 07/26/16 07/26/16 07:36 08:07 08:07 WBC 16.5 H RBC 2.69 L Hgb 7.5 L Hct 24.2 L MCV 90.0 MCH 27.9 L MCHC 31.0 L RDW 19.8 H Plt Count 119 L MPV 10.6 Immature Gran % 1.1 Seg Neutrophils % 79.7 Lymphocytes % 15.1 Monocytes % 3.6 Eosinophils % 0.4 Basophils % 0.1 Neutrophils # 13.1 H Lymphocytes # 2.5 Monocytes # 0.6 Eosinophils # 0.1 Basophils # 0.0 Nucleated RBCs/100 WBC 0.1 H Sodium Potassium Chloride Carbon Dioxide BUN Creatinine Est GFR ( Amer) Est GFR (Non-Af Amer) BUN/Creatinine Ratio Glucose POC Glucose 240 H Calculated Osmolality Calcium Phosphorus Magnesium Vitamin B12 232 Folate 4.0 L 07/26/16 11:14 WBC RBC Hgb Hct MCV MCH MCHC RDW Plt Count MPV Immature Gran % Seg Neutrophils % Lymphocytes % Monocytes % Eosinophils % Basophils % Neutrophils # Lymphocytes # Monocytes # Eosinophils # Basophils # Nucleated RBCs/100 WBC Sodium Potassium Chloride Carbon Dioxide BUN Creatinine Est GFR ( Amer) Est GFR (Non-Af Amer) BUN/Creatinine Ratio Glucose POC Glucose 140 H Calculated Osmolality Calcium Phosphorus Magnesium Vitamin B12 Folate Cultures: Cultures 07/19/16 12:24 Blood Culture - Final Peripheral Venipuncture Vanc. Resistant Enterococcus 07/24/16 00:34 Wound Culture - Final Right Leg Escherichia coli 07/24/16 08:38 Blood Culture - Final Peripheral Venipuncture Escherichia coli 07/23/16 17:16 Blood Culture - Final Peripheral Venipuncture Escherichia coli 07/24/16 08:29 Blood Culture - Final Peripheral Venipuncture Escherichia coli 07/23/16 17:20 Blood Culture - Final Peripheral Venipuncture Escherichia coli 07/23/16 21:20 Surgical Biopsy Culture - Final Right Leg Escherichia coli 07/24/16 00:34 Wound Culture - Final Right Leg Escherichia coli 07/19/16 12:31 Blood Culture - Final Peripheral Venipuncture No growth. 07/18/16 11:32 Blood Culture - Final Peripheral Venipuncture Gram Positive Cocci 07/18/16 11:37 Blood Culture - Final Peripheral Venipuncture Vanc. Resistant Enterococcus 07/11/16 09:07 Blood Culture - Final Peripheral Venipuncture No growth. 07/13/16 12:30 Sputum Culture - Final Sputum 07/11/16 16:47 Respiratory Culture - Final Right Lower Lobe Lung Normal upper respiratory tract juan m. No apparent pathogens isolated. 07/11/16 16:47 Gram Stain - Final Right Lower Lobe Lung 07/11/16 16:47 Acid Fast Stain - Final Right Lower Lobe Lung 07/12/16 23:12 Legionella Antigen - Final Urine,Clean Catch Streptococcus pneumoniae Antigen (M - Final Serology 07/24/16 07/20/16 07/19/16 Range/Units 08:29 17:46 12:24 Urine Color (Yellow) Urine Clarity (Clear) Urine pH (5.0-8.0) pH Units Ur Specific [place] (1.010-1.025) Urine Protein (Neg-Trace) mg/dL Urine Glucose (UA) (Normal) mg/dL Urine Ketones (Negative) mg/dL Urine Blood (Negative) Urine Nitrite (Negative) Urine Bilirubin (Negative) Urine Urobilinogen (Normal) mg/dL Ur Leukocyte Esterase (Negative) Urine Microscopic RBC (0-3) per hpf Urine Microscopic WBC (0-3) per hpf Ur Squamous Epith Cells (None-Few) per lpf Urine Bacteria (None-Few) per hpf Hyaline Casts (None-Few) per lpf Urine Yeast Ur Culture Indicated? (NO) Urine Creatinine mg/dL Urine Microalbumin mg/L Microalb/Creat Ratio (0-30) Protein/Creatinin Ratio (0-0.20) mg/mg Urine Total Protein (1-14) mg/dL Urine Hemosiderin (Negative) Fluid Source Fluid Volume mL Fluid Appearance (Clear) Fluid RBC Fld Tot Nucleated Cell Fluid Seg Neutrophil % % Fluid Lymphocytes % % Fluid Monocytes % % Fluid Other Cells % % A. baumannii (PCR) Not Detected Not Detected (Not Detect) Jenna albicans (PCR) Not Detected Not Detected (Not Detect) C. glabrata (PCR) Not Detected Not Detected (Not Detect) C. krusei (PCR) Not Detected Not Detected (Not Detect) C. parapsilosis (PCR) Not Detected Not Detected (Not Detect) C. tropicalis (PCR) Not Detected Not Detected (Not Detect) Enterobacteriac sp PCR DETECTED A Not Detected (Not Detect) E. cloacae complex PCR Not Detected Not Detected (Not Detect) Enterococcus sp PCR Not Detected DETECTED A (Not Detect) E. coli (PCR) DETECTED A Not Detected (Not Detect) H. influenzae (PCR) Not Detected Not Detected (Not Detect) Hepatitis A IgM Ab (Nonreactive) Hep Bs Antigen (Nonreactive) Hep B Core IgM Ab (Nonreactive) Hepatitis C Ab Screen (Nonreactive) HIV Ag/Ab Combo Qual (Nonreactive) Klebsiella oxytoca PCR Not Detected Not Detected (Not Detect) Klebsiella pneumoniae Not Detected Not Detected (Not Detect) List. monocytogenes PCR Not Detected Not Detected (Not Detect) N. meningitidis (PCR) Not Detected Not Detected (Not Detect) Proteus species (PCR) Not Detected Not Detected (Not Detect) Serratia marcescens PCR Not Detected Not Detected (Not Detect) Staphylococcus sp PCR Not Detected Not Detected (Not Detect) Staph aureus (PCR) Not Detected Not Detected (Not Detect) mecA-Methicil Res Gene Not Detected N/A (Not Detect) Streptococcus sp PCR Not Detected Not Detected (Not Detect) Group A Strep DNA Not Detected Not Detected (Not Detect) Group B Strep (PCR) Not Detected Not Detected (Not Detect) Strep pneumoniae (PCR) Not Detected Not Detected (Not Detect) P. aeruginosa (PCR) Not Detected Not Detected (Not Detect) TB (QFT) Gold In Tube INDETERMINATE (Negative) TB Test (QFT) Nil 0.03 IU/mL TB Test Mitogen - Nil 0.16 IU/mL Peter/B-Vanco Res Genes Not Detected DETECTED A (Not Detect) KPC (blaKPC) Detect PCR Not Detected N/A (Not Detect) 07/18/16 07/17/16 07/14/16 Range/Units 11:37 10:31 13:05 Urine Color (Yellow) Urine Clarity (Clear) Urine pH (5.0-8.0) pH Units Ur Specific [place] (1.010-1.025) Urine Protein (Neg-Trace) mg/dL Urine Glucose (UA) (Normal) mg/dL Urine Ketones (Negative) mg/dL Urine Blood (Negative) Urine Nitrite (Negative) Urine Bilirubin (Negative) Urine Urobilinogen (Normal) mg/dL Ur Leukocyte Esterase (Negative) Urine Microscopic RBC (0-3) per hpf Urine Microscopic WBC (0-3) per hpf Ur Squamous Epith Cells (None-Few) per lpf Urine Bacteria (None-Few) per hpf Hyaline Casts (None-Few) per lpf Urine Yeast Ur Culture Indicated? (NO) Urine Creatinine mg/dL Urine Microalbumin mg/L Microalb/Creat Ratio (0-30) Protein/Creatinin Ratio (0-0.20) mg/mg Urine Total Protein (1-14) mg/dL Urine Hemosiderin (Negative) Fluid Source Fluid Volume mL Fluid Appearance (Clear) Fluid RBC Fld Tot Nucleated Cell Fluid Seg Neutrophil % % Fluid Lymphocytes % % Fluid Monocytes % % Fluid Other Cells % % A. baumannii (PCR) Not Detected (Not Detect) Jenna albicans (PCR) Not Detected (Not Detect) C. glabrata (PCR) Not Detected (Not Detect) C. krusei (PCR) Not Detected (Not Detect) C. parapsilosis (PCR) Not Detected (Not Detect) C. tropicalis (PCR) Not Detected (Not Detect) Enterobacteriac sp PCR Not Detected (Not Detect) E. cloacae complex PCR Not Detected (Not Detect) Enterococcus sp PCR DETECTED A (Not Detect) E. coli (PCR) Not Detected (Not Detect) H. influenzae (PCR) Not Detected (Not Detect) Hepatitis A IgM Ab (Nonreactive) Hep Bs Antigen (Nonreactive) Hep B Core IgM Ab (Nonreactive) Hepatitis C Ab Screen (Nonreactive) HIV Ag/Ab Combo Qual Nonreactive (Nonreactive) Klebsiella oxytoca PCR Not Detected (Not Detect) Klebsiella pneumoniae Not Detected (Not Detect) List. monocytogenes PCR Not Detected (Not Detect) N. meningitidis (PCR) Not Detected (Not Detect) Proteus species (PCR) Not Detected (Not Detect) Serratia marcescens PCR Not Detected (Not Detect) Staphylococcus sp PCR Not Detected (Not Detect) Staph aureus (PCR) Not Detected (Not Detect) mecA-Methicil Res Gene Not Detected (Not Detect) Streptococcus sp PCR Not Detected (Not Detect) Group A Strep DNA Not Detected (Not Detect) Group B Strep (PCR) Not Detected (Not Detect) Strep pneumoniae (PCR) Not Detected (Not Detect) P. aeruginosa (PCR) Not Detected (Not Detect) TB (QFT) Gold In Tube INDETERMINATE (Negative) TB Test (QFT) Nil 0.04 IU/mL TB Test Mitogen - Nil 0.03 IU/mL Peter/B-Vanco Res Genes DETECTED A (Not Detect) KPC (blaKPC) Detect PCR Not Detected (Not Detect) 07/13/16 07/13/16 07/13/16 Range/Units 21:00 21:00 21:00 Urine Color (Yellow) Urine Clarity (Clear) Urine pH (5.0-8.0) pH Units Ur Specific [place] (1.010-1.025) Urine Protein (Neg-Trace) mg/dL Urine Glucose (UA) (Normal) mg/dL Urine Ketones (Negative) mg/dL Urine Blood (Negative) Urine Nitrite (Negative) Urine Bilirubin (Negative) Urine Urobilinogen (Normal) mg/dL Ur Leukocyte Esterase (Negative) Urine Microscopic RBC (0-3) per hpf Urine Microscopic WBC (0-3) per hpf Ur Squamous Epith Cells (None-Few) per lpf Urine Bacteria (None-Few) per hpf Hyaline Casts (None-Few) per lpf Urine Yeast Ur Culture Indicated? (NO) Urine Creatinine 59 58 mg/dL Urine Microalbumin 235 mg/L Microalb/Creat Ratio 405 H (0-30) Protein/Creatinin Ratio 1.12 H (0-0.20) mg/mg Urine Total Protein 66 H (1-14) mg/dL Urine Hemosiderin NEGATIVE (Negative) Fluid Source Fluid Volume mL Fluid Appearance (Clear) Fluid RBC Fld Tot Nucleated Cell Fluid Seg Neutrophil % % Fluid Lymphocytes % % Fluid Monocytes % % Fluid Other Cells % % A. baumannii (PCR) (Not Detect) Jenna albicans (PCR) (Not Detect) C. glabrata (PCR) (Not Detect) C. krusei (PCR) (Not Detect) C. parapsilosis (PCR) (Not Detect) C. tropicalis (PCR) (Not Detect) Enterobacteriac sp PCR (Not Detect) E. cloacae complex PCR (Not Detect) Enterococcus sp PCR (Not Detect) E. coli (PCR) (Not Detect) H. influenzae (PCR) (Not Detect) Hepatitis A IgM Ab (Nonreactive) Hep Bs Antigen (Nonreactive) Hep B Core IgM Ab (Nonreactive) Hepatitis C Ab Screen (Nonreactive) HIV Ag/Ab Combo Qual (Nonreactive) Klebsiella oxytoca PCR (Not Detect) Klebsiella pneumoniae (Not Detect) List. monocytogenes PCR (Not Detect) N. meningitidis (PCR) (Not Detect) Proteus species (PCR) (Not Detect) Serratia marcescens PCR (Not Detect) Staphylococcus sp PCR (Not Detect) Staph aureus (PCR) (Not Detect) mecA-Methicil Res Gene (Not Detect) Streptococcus sp PCR (Not Detect) Group A Strep DNA (Not Detect) Group B Strep (PCR) (Not Detect) Strep pneumoniae (PCR) (Not Detect) P. aeruginosa (PCR) (Not Detect) TB (QFT) Gold In Tube (Negative) TB Test (QFT) Nil IU/mL TB Test Mitogen - Nil IU/mL Peter/B-Vanco Res Genes (Not Detect) KPC (blaKPC) Detect PCR (Not Detect) 07/13/16 07/13/16 07/11/16 Range/Units 21:00 16:45 16:47 Urine Color Yellow (Yellow) Urine Clarity Cloudy A (Clear) Urine pH 6.0 (5.0-8.0) pH Units Ur Specific [place] 1.025 (1.010-1.025) Urine Protein 100 H (Neg-Trace) mg/dL Urine Glucose (UA) >=1000 H (Normal) mg/dL Urine Ketones Negative (Negative) mg/dL Urine Blood Moderate H (Negative) Urine Nitrite Negative (Negative) Urine Bilirubin Negative (Negative) Urine Urobilinogen Normal (Normal) mg/dL Ur Leukocyte Esterase Negative (Negative) Urine Microscopic RBC 0-3 (0-3) per hpf Urine Microscopic WBC 3-5 H (0-3) per hpf Ur Squamous Epith Cells Many H (None-Few) per lpf Urine Bacteria None Seen (None-Few) per hpf Hyaline Casts Few (None-Few) per lpf Urine Yeast Test Not Performed Ur Culture Indicated? NO (NO) Urine Creatinine mg/dL Urine Microalbumin mg/L Microalb/Creat Ratio (0-30) Protein/Creatinin Ratio (0-0.20) mg/mg Urine Total Protein (1-14) mg/dL Urine Hemosiderin (Negative) Fluid Source RLL BAL Fluid Volume 22 mL Fluid Appearance Cloudy A (Clear) Fluid RBC TNP Fld Tot Nucleated Cell TNP Fluid Seg Neutrophil % 27.0 % Fluid Lymphocytes % 50.0 % Fluid Monocytes % 2.0 % Fluid Other Cells % 21.0 % A. baumannii (PCR) (Not Detect) Jenna albicans (PCR) (Not Detect) C. glabrata (PCR) (Not Detect) C. krusei (PCR) (Not Detect) C. parapsilosis (PCR) (Not Detect) C. tropicalis (PCR) (Not Detect) Enterobacteriac sp PCR (Not Detect) E. cloacae complex PCR (Not Detect) Enterococcus sp PCR (Not Detect) E. coli (PCR) (Not Detect) H. influenzae (PCR) (Not Detect) Hepatitis A IgM Ab Nonreactive (Nonreactive) Hep Bs Antigen Nonreactive (Nonreactive) Hep B Core IgM Ab Nonreactive (Nonreactive) Hepatitis C Ab Screen Nonreactive (Nonreactive) HIV Ag/Ab Combo Qual (Nonreactive) Klebsiella oxytoca PCR (Not Detect) Klebsiella pneumoniae (Not Detect) List. monocytogenes PCR (Not Detect) N. meningitidis (PCR) (Not Detect) Proteus species (PCR) (Not Detect) Serratia marcescens PCR (Not Detect) Staphylococcus sp PCR (Not Detect) Staph aureus (PCR) (Not Detect) mecA-Methicil Res Gene (Not Detect) Streptococcus sp PCR (Not Detect) Group A Strep DNA (Not Detect) Group B Strep (PCR) (Not Detect) Strep pneumoniae (PCR) (Not Detect) P. aeruginosa (PCR) (Not Detect) TB (QFT) Gold In Tube (Negative) TB Test (QFT) Nil IU/mL TB Test Mitogen - Nil IU/mL Peter/B-Vanco Res Genes (Not Detect) KPC (blaKPC) Detect PCR (Not Detect) Exam - Constitutional Vitals: Temp Pulse Resp BP Pulse Ox 97.7 F 81 18 123/57 96 07/26/16 11:11 07/26/16 11:11 07/26/16 11:11 07/26/16 11:11 07/26/16 11:11 General appearance: cooperative, no acute distress, obese - Head Head exam: Present: atraumatic, normal inspection, normocephalic - Eye Eye exam: Present: EOMI, normal appearance, PERRL Pupils: Present: normal accommodation Additional comments: No subconjunctival hemorrhage noted. - ENT ENT exam: Present: mucous membranes moist - Neck Neck exam: Present: full ROM, normal inspection - Respiratory Respiratory exam: Present: CTAB. Absent: rales, respiratory distress, rhonchi, wheezes - Cardiovascular Cardiovascular exam: Present: irregular rhythm. Absent: tachycardia - GI/Abdominal GI/Abdominal exam: Present: distended (Obese), normal bowel sounds, soft. Absent: tenderness - Extremities Exam Extremities exam: Present: pedal edema (2+ RLE, 1+ LLE), tenderness (RLE). Absent: joint swelling Additional comments: Right lower extremity edematous, but without erythema. Ecchymosis noted to the lateral aspect of the right forefoot. Surgical incision noted to the right lower extremity with woo intact and wound edges well approximated. YAMEL drain remains intact draining small amount of serous sanguinous drainage. No erythema or gross purulence noted from the incision. Small, ecchymotic/erythematous, painful lesions noted to the dorsal aspect of the bilateral hands, concerning for Osler nodes. Additional non-tender ecchymotic lesions noted to the distal aspect of the fingers. - Back Exam Back exam: Present: normal inspection. Absent: paraspinal tenderness, vertebral tenderness - Neurological Exam Neurological exam: Present: alert, oriented X3, no focal deficits - Psychiatric Psychiatric exam: Present: normal affect, normal mood - Skin Skin exam: Present: dry, intact, normal color, warm - VTE Documentation of Mechanical Device: Graduated compression elastic hosiery Consult Discharge Plan - Plan Referrals: Con Vogt CNP [Advanced Practice Nurse] - 08/02/16 3:30 pm Aliyah Prado, MARK [Primary Care Provider] - (walk in facilities.. no need for an appointment. Patient will go to rehab upon discharge) - Attending Attestation I examined this patient and my medical decision-making was reviewed with the COMPUGRAPH OPERATOR/PA/Advanced Practice Nurse/Resident Physician. I agree with the documented findings, disposition and treatment plan as described except to the extent set forth below. I saw the patient in the presence of Dr. Urias from rheumatology. Discussed the lesions. Does not appear to be taking the lesion or ulcer nodes. Concern for vasculitis. Asked dermatology to evaluate and perform a biopsy. Does not appear to be infectious in etiology.
--- NOTE | 2016-07-26 13:51 | Internal Med Progress Note ---
Date of Encounter: 07/26/16 Time of Encounter: 11:23 - Assessment and plan (1) Anemia Current Visit: Yes Status: Acute Assessment and plan: Noted to have history of iron deficiency anemia and currently on iron supplementation noted to have drop in H&H will obtain stool occult transfuse 1unit PRBC and closely monitor no acute bleeding reported at this time. YAMEL drain noted to have around 35cc of serous sanguinous fluid in the last 24 hours. Will closely monitor Qualifiers: Anemia type: unspecified type Qualified Code(s): D64.9 - Anemia, unspecified (2) Acute on chronic respiratory failure with hypoxia Current Visit: Yes Status: Acute Assessment and plan: Improved respiratory status at baseline continue O2 supplementation (3) Atrial fibrillation Current Visit: Yes Status: Chronic Assessment and plan: on cardizem and betablockers, ventricular rate currently controlled. no AC due to hemoptysis. Qualifiers: Atrial fibrillation type: chronic Qualified Code(s): I48.2 - Chronic atrial fibrillation (4) Bacteremia Current Visit: Yes Status: Acute Assessment and plan: On broad-spectrum antibiotics, follow recommendations by infectious disease. No evidence of vegetation in the transthoracic echo. ID input appreciated Blood cultures and urine culture noted will repeat blood cultures as patient will need 14 days of abx after clearance from the first negative blood culture (5) Compartment syndrome Current Visit: Yes Status: Acute Assessment and plan: s/p Fasciotomy on 07/24/16 Vascular surgery consultation appreciated continue wound care as per surgery pain control Qualifiers: Compartment syndrome type: non-traumatic Compartment syndrome location: lower extremity Laterality: right Qualified Code(s): M79.A21 - Nontraumatic compartment syndrome of right lower extremity (6) Diabetes mellitus type 2, uncontrolled Current Visit: Yes Status: Chronic Assessment and plan: BG within acceptable range will closely monitor FS and BG continue Insulin SS as needed Qualifiers: Diabetes mellitus complication status: with neurologic complications Diabetes mellitus complication detail: with unspecified neuropathy Diabetes mellitus detention insulin use: with intermediate manager use Qualified Code(s): E11.40 - Type 2 diabetes mellitus with diabetic neuropathy, unspecified; E11.65 - Type 2 diabetes mellitus with hyperglycemia; Z79.4 - shelter (current) use of insulin (7) Diffuse pulmonary alveolar hemorrhage Current Visit: Yes Status: Acute Assessment and plan: 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 Continue with prednisone 80 mg daily. Bacteremia, antibiotics according to recommendations by our infectious disease team. Patient does not have hemoptysis today. She continues on PO steroids as recommended by rheumatology. Continuous to require oxygen supplementation. No other interventions at this point due to concomitant infections, bacteremia and status post fasciotomy due to compartment syndrome and fasciitis. (8) DVT prophylaxis Current Visit: No Status: Acute Assessment and plan: We will avoid heparin due to hemoptysis. Continue with intermittent compression devices. (9) Fasciitis Current Visit: Yes Status: Acute Assessment and plan: Status post fasciotomy (07/24/16) Plan as listed above continue IV abx (Daptomycin Day 6, Cefepime-Day 2, Flagyl-Day 4) (10) Rheumatoid arthritis Current Visit: Yes Status: Chronic Qualifiers: Rheumatoid arthritis location: unspecified site Rheumatoid factor presence : unspecified presence Qualified Code(s): M06.9 - Rheumatoid arthritis, unspecified - Subjective Interval history: PT seen and examined with son present at bedside. Reports of feeling better compared to the previous day, pain adequately controlled with current regimen. No overnight issues were reported. I was informed about the bilateral superficial hand lesions by ID and dermatology will be consulted for further evaluation. - Constitutional Vitals: Temp Pulse Resp BP Pulse Ox 97.7 F 81 18 123/57 96 07/26/16 11:11 07/26/16 11:11 07/26/16 11:11 07/26/16 11:11 07/26/16 11:11 General appearance: Present: cooperative, A&O X 3, pleasant, no acute distress, obese - Head Head exam: Present: atraumatic, normocephalic - Eye Eye exam: Present: normal appearance, conjuntiva pink, sclera anicteric - Respiratory Respiratory exam: Present: CTAB. Absent: respiratory distress, wheezes - Cardiovascular Cardiovascular exam: Present: RRR, +S1, +S2. Absent: diastolic murmur, gallop, rubs, systolic murmur - GI/Abdominal GI/Abdominal exam: Present: normal bowel sounds, soft, no peritoneal signs. Absent: distended, tenderness - Extremities Exam Additional comments: RLE sutures intact, tender to palpation, YAMEL drain in place - Neurological Exam Neurological exam: Present: alert, oriented X3 - Psychiatric Psychiatric exam: Present: normal affect, normal mood Internal Medicine: Result - Labs CBC & Chem 7: 07/26/16 08:07 07/26/16 05:45 Labs: Short CBC 07/26/16 07/26/16 Range/Units 05:45 08:07 WBC 14.8 H 16.5 H (4.3-11.1) K/mcL Hgb 7.3 L 7.5 L (11.5-15.4) g/dL Hct 23.1 L 24.2 L (35.3-44.9) % Plt Count 116 L 119 L (140-400) K/mcL Neutrophils # 12.0 H 13.1 H (1.6-8.9) K/mcL BMP 07/26/16 05:45 Sodium 140 Potassium 4.2 Chloride 103 Carbon Dioxide 30 H BUN 29 H Creatinine 1.04 Glucose 272 H Calcium 9.1 - ABG Interpretation ABG results: PT/INR, D-dimer PT 10.1 Seconds (9.4-12.1) 07/23/16 05:02 D-Dimer 6124 ng/mLFEU (0-500) H 07/23/16 05:02 - VTE Documentation of Mechanical Device: Graduated compression elastic hosiery Consult Discharge Plan - Plan Referrals: Con Vogt CNP [Advanced Practice Nurse] - 08/02/16 3:30 pm Aliyah Prado CNP [Primary Care Provider] - (walk in facilities.. no need for an appointment. Patient will go to rehab upon discharge)
[2016-07-26] MEDS ORDERED: 0.9 % Sodium Chloride 250 ML ONE (14:36)
--- NOTE | 2016-07-26 18:46 | Rheumatology Progress Note ---
Date of Encounter: 07/26/16 Time of Encounter: 17:00 Rheumatology Assess and Plan (1) Diffuse pulmonary alveolar hemorrhage Current Visit: Yes Status: Acute Stable thought still requiring oxygen ANCA associated vasculitis, MPA remains very high on the differential. She has had blood culture positivity but I am still not certain if it is related to the pulmonary hemorrhage or if it is separate all together. She has been pulsed with methylprednisolone now for 3 days (500 mg x 3 days), covered on high dose steroids; renal function and pulmonary status are stable. There are new cutaneous lesions on the hand which may be from vasculitis activity though will need infectious workup; dermatology is going to evaluate in the morning and I did discuss with them. At this time, covering for systemic vasculitis with steroids and overall stable but high concern for infectious complications; will decrease prednisone to 40 mg daily and continue to closely monitor. If increased vasculitic activity, may need to give IVIG in the meantime while infectious treated. - Will await continued infectious workup; I have discussed with ID and I discussed the case with the hospitalist. - Infectious workup is unremarkable at this time (2) CORINNE positive Current Visit: Yes Status: Acute CORINNE positive, histone positive in the setting of hydralazine. May be unrelated at this time. Hydralazine stopped. (3) P-ANCA and MPO antibodies positive Current Visit: Yes Status: Acute (4) Gram-negative bacterial infection Current Visit: Yes Status: Acute On antibiotics, ID following. (5) Rash and nonspecific skin eruption Current Visit: Yes Status: Acute Suspect vasculitic lesions though has current infection. There is a lesions on the right tongue as well that is tender. Workup pending. Derm to evaluate. - Subjective Interval history: Patient is seen and examined at bedside. Oxygen reduced to 4 liters and reports breathing is stable with minimal coughing, no hemoptysis. Recovering from surgery of her right leg with good pain control. Yesterday, she had new painful lesions on her hands that are tender and hard to the touch. She has a lesion on her right foot as well but denies trauma to her knowledge. She states her tongue is sore on the right side, no open sores but feels different but cannot recall when this was there. She states she does not feel feverish, has no joint pain or swelling. ROS General - No fevers/no chills Eyes - no red/painful eyes ENT - + tongue pain, no nasal ulcerations Heart - no chest pain Lungs - + improved shortness of breath and for cough Skin - + hand and right foot rash, no ulcerations MSK - Chronic knee pain, chronic back pain, no swelling Neuro - No paresthesias, no muscle weakness Exam Vital Signs, Last 4 Hours Temp Pulse Resp BP Pulse Ox 07/26/16 15:10 97.8 F 84 18 134/68 91 07/26/16 14:50 96.6 F L 98 12 144/73 90 07/26/16 14:42 97.8 F 84 12 134/68 Exam: General - Alert and oriented x 3, no acute distress Eyes - Conjunctiva clear and no lesions on eye lid ENT - Right side of tongue is a sore without erythema or induration surrounding that is mildly tender to touch, mild tender lesions around gum line Heart - S1S2 regular without murmurs or extra heart sounds Lungs - Clear to auscultation bilaterally Skin - Raised, tender, erythematous papules on the hands. Right foot with purpura with central blister. Objective Data 07/26/16 08:07 07/26/16 05:45 Immunology Rheumatoid Factor < 15 IU/mL (0-29) 07/11/16 17:44 Cycl Citrul Peptide IgG 12 Units (0-19) 07/11/16 17:44 CORINNE Screen DETECTED (None Detected) A 07/11/16 17:44 CORINNE Titer 1:1280 (<1:40) H 07/11/16 17:44 Myeloperoxidase Ab 44 AU/mL (0-19) H 07/11/16 17:44 ANCA IgG 1:5120 (<1:20) H 07/13/16 14:17 SS-A/Ro 52 kDa Ab 2 AU/mL (0-40) 07/13/16 16:45 SS-A Ro 60 kDa Ab 71 AU/mL (0-40) H 07/13/16 16:45 SS-B/La Antibody 0 AU/mL (0-40) 07/13/16 16:45 Sm (Mcdowell) IgG Ab, Quant 0 AU/mL (0-40) 07/13/16 16:45 Scl-70 IgG Ab 0 AU/mL (0-40) 07/11/16 17:44 Anti-U1-BEAMER HELPER IgG, Quant 0 AU/mL (0-40) 07/13/16 16:45 Histone IgG Antibody 2.5 Units (0.0-0.9) H 07/19/16 07:48 Glomerular Base Mem IgG 0 AU/mL (0-19) 07/13/16 14:17 Glomer Base Mem IgG IFA NEGATIVE (Negative) 07/13/16 14:17 Serine Protease 3 Ab 5 AU/mL (0-19) 07/11/16 17:44 Complement C3 138 mg/dL (88-201) 07/11/16 17:44 Complement C4 22 mg/dL (10-40) 07/11/16 17:44 All other labs normal. - VTE Documentation of Mechanical Device: Graduated compression elastic hosiery Consult Discharge Plan - Plan Referrals: Cno Vogt RACK CLEANER [Advanced Practice Nurse] - 08/02/16 3:30 pm Aliyah Prado CNP [Primary Care Provider] - (walk in facilities.. no need for an appointment. Patient will go to rehab upon discharge)
--- NOTE | 2016-07-26 21:29 | Vascular/[facility] Progress Note ---
Date of Encounter: 07/26/16 Time of Encounter: 16:40 - Assessment and plan (1) Compartment syndrome Current Visit: Yes Status: Acute The patient underwent a right lower extremity 4 compartment fasciotomy due to fasciitis of an infectious etiology. Her leg is improving. Her cultures reveal E. Coli. She remains on antibiotics. May remove drain tomorrow if output remains low. Qualifiers: Compartment syndrome type: non-traumatic Compartment syndrome location: lower extremity Laterality: right Qualified Code(s): M79.A21 - Nontraumatic compartment syndrome of right lower extremity (2) Infectious fasciitis Current Visit: Yes Status: Acute (3) Cellulitis of right leg Current Visit: Yes Status: Acute (4) Hyperlipidemia Current Visit: Yes Status: Chronic Qualifiers: Hyperlipidemia type: unspecified Qualified Code(s): E78.5 - Hyperlipidemia , unspecified (5) Hypertension Current Visit: Yes Status: Chronic Qualifiers: Hypertension type: essential hypertension Qualified Code(s): I10 - Essential (primary) hypertension (6) Tobacco abuse Current Visit: No Status: Chronic (7) Chronic kidney disease, stage 3 Current Visit: Yes Status: Chronic - Subjective Interval history: The patient states that her leg pain has decreased. She denies any acute issues overnight. Vital Signs, Last 4 Hours Temp Pulse Resp BP Pulse Ox 07/26/16 19:02 97.7 F 80 16 147/74 92 07/26/16 17:30 98.3 F 93 16 157/61 90 - Physical Examination General: Present: Conversant Lungs: Present: Normal Breath Sounds Neuro: Present: Alert and responsive, No focal deficits noted Vascular: Present: Pulse, normal, Surgical incisions (incisions cleand and dry, drain with serous output) Abdomen: Present: Soft Skin: Present: Other (ecchymosis at right forefoot with blister unchanged since yesterday, right calf ecchymosis resolving) - VTE Documentation of Mechanical Device: Graduated compression elastic hosiery Results 07/26/16 08:07 07/26/16 05:45 Lab Results, Last 24 hours 07/26/16 07/26/16 07/26/16 05:45 05:45 08:07 WBC 14.8 H 16.5 H Hgb 7.3 L 7.5 L Hct 23.1 L 24.2 L Plt Count 116 L 119 L Sodium 140 Potassium 4.2 Chloride 103 Carbon Dioxide 30 H BUN 29 H Creatinine 1.04 Glucose 272 H Calcium 9.1 Magnesium 1.7 Consult Discharge Plan - Plan Referrals: Con Vogt CNP [Advanced Practice Nurse] - 08/02/16 3:30 pm Aliyah Prado CNP [Primary Care Provider] - (walk in facilities.. no need for an appointment. Patient will go to rehab upon discharge)
[2016-07-26] MEDS ORDERED: SODIUM CHLORIDE 0.9% IVPB SCH (22:00)
[2016-07-26] MEDS ORDERED: DAPTOMYCIN IVPB SCH (22:00)
[2016-07-26] MEDS: DAPTOMYCIN IVPB SCH (22:13)
[2016-07-26] MEDS: SODIUM CHLORIDE 0.9% IVPB SCH (22:13)
[2016-07-27] MEDS: *HR* Morphine 2 MG/ML SYRINGE IV PRN (00:28)
[2016-07-27] MEDS: MetroNIDAZOLE 500 MG/100 ML 500 MG/100 ML BAG IVPB SCH ×3 (00:28→16:30)
[2016-07-27] MEDS: Cefepime HCl 2,000 MG in D5% in Water (Mini-Bag+) 100 ML IVPB SCH ×2 (05:31→16:37)
[2016-07-27] MEDS: *HR* OxyCODONE/APAP 10/325 TABLET PO PRN ×2 (05:32→18:33)
[2016-07-27 05:54] LABS: Basophils % 0.1 %; Eosinophils % 0.2 %; Hematocrit 26.1 % (35.3-44.9); Hemoglobin 8.4 g/dL (11.5-15.4); Lymphocytes # 2.9 K/mcL (0.6-4.6); Lymphocytes % 16.9 %; Mean Corpuscular HGB Conc 32.2 g/dL (31.6-35.5); Mean Corpuscular Hemoglobin 28.6 pg (28.0-33.3); Mean Corpuscular Volume 88.8 fL (83.0-100.0); Monocytes # 0.8 K/mcL (0.0-1.3); Monocytes % 4.4 %; Neutrophils # 13.5 K/mcL (1.6-8.9); Nucleated Red Blood Cells 0.3 /100 WBC (0); Platelet Count 108 K/mcL (140-400); Red Blood Count 2.94 M/mcL (3.82-4.97); Red Cell Distribution Width 19.6 % (11.5-14.5); Segmented Neutrophils % 77.4 %
[2016-07-27 06:20] LABS: BUN/Creatinine Ratio 33 (6-26); Blood Urea Nitrogen 34 mg/dL (7-20); Calcium 9.4 mg/dL (8.6-10.8); Carbon Dioxide 28 mEq/L (19-29); Chloride 103 mEq/L (98-109); Glucose 154 mg/dL (70-99); Magnesium 1.9 mg/dL (1.6-2.6); Osmolality,Calculated 303 (280-300); Phosphorous 3.6 mg/dL (2.3-4.7); Sodium 141 mEq/L (136-145); eGFR For African Americans > 60 (> 60); eGFR For Non-African Americans 54 (> 60)
[2016-07-27 06:24] LABS: Potassium 4.6 mEq/L (3.5-4.5)
[2016-07-27] MEDS ORDERED: Cyanocobalamin (B-12) 1,000 MCG/ML VIAL IM ONE (08:24)
--- NOTE | 2016-07-27 08:28 | Nephrology Progress Note ---
Date of Encounter: 07/27/16 Time of Encounter: 08:28 - Assessment and Plan (1) Hypertension Current Visit: Yes Status: Chronic Bp 134/68, 144/73, 134/68, 157/61, 147/74, 167/68, 167/78 Uncontrolled, improving. Continue to monitor bp Goal bp <150/90 Continue with Clonidine 0.3mg patch, Continue with Metoprolol 50mg bid. Continue cardisem 180mg qd. Caution advised due to possible bradycardia with combination with Cardizem. Continue lasix 40mg bid. Continue losartan 50mg bid. Continue monitoring BMP and bp Continue with renal protective strategy, avoid nephrotoxins. No urgent dialysis at this time. Continue to monitor patient's blood pressure. Nephrology will continue following at a distance as bp appears to be controlled overnight. Qualifiers: Hypertension type: essential hypertension Qualified Code(s): I10 - Essential (primary) hypertension (2) Hemoptysis Current Visit: Yes Status: Acute Patient with confirmed ANCA + and MPO +, pulmonary limited vasculitis reports beginning to cough up bright red blood again this morning after five days of black specks. Patient also developed blood filled blisters over her dorsal aspects of bilateral hands overnight. Biopsy of lesions sent. Rheumatology onboard, 40mg prednisone. ID on board for VRE and E.coli bacteremia, on daptomycin, cefepime, and flagyl. Patient is on high dose steroids for vasculitis, but can't further immunosuppress at this time with active infections. May consider plasmapheresis and continue steroids. (3) Leg pain, right Current Visit: Yes Status: Acute Patient diagnosed with Right leg compartment syndrome. Underwent fasciotomy and debridement of necrotic subcutaneous and subfascial tissue 07/23/16 evening. Patient has drain in place. WBC 17.4 Wound culture grew E.coli Continue per Hospitalist plan. (4) Chronic kidney disease, stage 3 Current Visit: Yes Status: Chronic Patient with known history of CKD stage III. Function continues improving, currently at baseline BUN 34, Cr 1.04, GFR 54 Continue to monitor I&O Continue monitoring labs Continue with renal protective strategy, avoid nephrotoxic agents. (5) Proteinuria Current Visit: Yes Status: Chronic Continue to monitor and improve bp, goal <150/90. CORINNE positive, ANCA positive, MPO positive, GBM negative. 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 Final report renal biopsy returned findings suggestive of longstanding chronic hypertension and diabetes, no vasculitis. High dose steroids x3 days completed. Defer additional immunological management to Rheumatology and Pulmonology as this appears not to be affecting directly the kidneys based on renal biopsy results. Rheumatology plan to start with 40mg oral prednisone qd, decreased from yesterday. Continue with renal protective strategy, avoid nephrotoxic agents. No urgent dialysis at this time. Continue following labs. Qualifiers: Proteinuria type: isolated Isolated proteinuria type: with unspecified morphologic lesion Qualified Code(s): N06.9 - Isolated proteinuria with unspecified morphologic lesion (6) Gram-negative bacterial infection Current Visit: Yes Status: Acute Blood cultures and wound cultures 07/23/16 growing gram negative rods. E. coli confirmed in cultures and 07/24 x2 ID on board. Continue per Hospitalist plan. (7) Gram-positive cocci bacteremia Current Visit: Yes Status: Acute Blood cultures x2 drawn 07/17/16 growing gram positive cocci. Enterococcus with vancomycin resistance. Infectious Disease following patient. Patient currently on Daptomycin, flagyl, and cefepime. Clindamycin discontinued. ID on board Avoid nephrotoxic agents, continue with renal protective strategy. (8) P-ANCA and MPO antibodies positive Current Visit: Yes Status: Acute ANCA positive 1:5120 SS-A/Ri 60kDa Ab positive at 71, MPO Ab positive at 44. Rheumatology on board. Quantiferon Gold TB completed. HIV negative. (9) CORINNE positive Current Visit: Yes Status: Acute CORINNE titer 1:1280 (previously negative in 2015) Rheumatology on board. (10) Hematuria Current Visit: Yes Status: Acute Hematuria noted on this hospital visit UA, change from prior Urine studies in 2015 which were negative for blood. Continue per plan in assessment above. (11) Diabetes mellitus type 2, uncontrolled Current Visit: Yes Status: Chronic Known history of type II diabetes uncontrolled on intermediate card tender insulin, receiving high dose steroids. Continue monitoring. Continue per Hospitalist plan. Diet: Diabetic, Cardiac, Renal. Qualifiers: Diabetes mellitus complication status: with neurologic complications Diabetes mellitus complication detail: with unspecified neuropathy Diabetes mellitus intermediate card tender insulin use: with mcfp use Qualified Code(s): E11.40 - Type 2 diabetes mellitus with diabetic neuropathy, unspecified; E11.65 - Type 2 diabetes mellitus with hyperglycemia; Z79.4 - predatory animal exterminator (current) use of insulin (12) Diffuse pulmonary alveolar hemorrhage Current Visit: Yes Status: Acute Preliminary read of renal biopsy revealed no crescents or ANCA associate vasculitis findings. 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 Continues to cough up blood, now beginning to turn bright red again. Incentive spirometry, patient requiring 4L nasal cannula. May require social work to set up home oxygen as needed. Continue per plan of Hospitalist. (13) Anemia Current Visit: Yes Status: Acute Patient with known history of anemia. Normocytic anemia upon review of labs. Hb 9.3 on arrival to [place] ED. Hb drop to 8.4 this morning, improved from 7.5 yesterday. B12 level cam back low normal at 232, folate level cam eback low at 4.0 Ferrous sulfate bid. B12 IM once ordered Folate 5mg qd ordered. Continue to monitor labs Qualifiers: Anemia type: unspecified type Qualified Code(s): D64.9 - Anemia, unspecified Subjective Principal diagnosis: hemoptysis Interval history: Patient reports doing okay overnight, appears less comfortable this morning but based on her history is likely due to her npo status overnight. Reports continued improvement in right leg pain. Starting coughing up mildly increasing amounts of bright red sputum overnight, had been stable dark black specks for the past couple days. Reports shortness of breath improving, on 4L nasal cannula. Reports they took a biopsy of her hand yesterday because she started to develop blood filled blisters over her hands bilaterally. Patient denies fevers, chills, sweats, nausea, vomiting, headache, lightheadedness, changes in bowels or bladder, hematuria, dysuria, oligouria, weakness, or loss of sensation. Bp 147-167/74-78, rate 82 irregular. Objective - Vital Signs Vital signs: Vital Signs Temp Pulse Resp BP Pulse Ox 07/27/16 08:04 97.9 F 82 16 167/78 94 07/26/16 23:07 98.1 F 82 16 167/68 92 07/26/16 19:02 97.7 F 80 16 147/74 92 07/26/16 17:30 98.3 F 93 16 157/61 90 07/26/16 15:10 97.8 F 84 18 134/68 91 07/26/16 14:50 96.6 F L 98 12 144/73 90 07/26/16 14:42 97.8 F 84 12 134/68 07/26/16 11:11 97.7 F 81 18 123/57 96 Intake and Output 07/26/16 07/27/16 07/27/16 23:59 07:59 15:59 Intake Total 1150 / 1150 200 / 200 Output Total 20 600 / 600 Balance 1130 / 1130 -400 / -400 Intake: IV Fluids 200 / 200 200 / 200 Maxipime 2,000 MG In 100 / 100 100 / 100 Dextrose 5% (Minibag+) 100 ML 100 ML @ 200 mls/ hr IVPB Q12HR [facility] Rx#: [id number] Flagyl Premix 500 MG/100 100 / 100 100 / 100 ML 500 mg In 100 ml @ 100 mls/hr IVPB Q8HR [facility] Rx# :[id number] Oral 600 / 600 0 / 0 Blood Product 350 / 350 Rbcs Leuko Poor As-3 Ph 350 / 350 Unit [id number] Output: Urine 600 / 600 Wound Drainage 20 / 20 Right Lower Calf 20 / 20 Other: Meal Water Pitcher/Ice Blood Glucose* 187 165 - General Appearance General appearance: Present: well-developed, well-nourished, appears started age , obese, chronically ill Exam: ulcerated sores within oral cavity and lateral tongue. EENT: Present: PERRL, mucous membranes dry, hearing intact, vision intact Neck: Present: no JVD, no carotid bruit, supple Respiratory: Present: course breath sounds, rhonchi Cardiology: Present: no murmurs, regular rate, irregular rhythm, normal S1, normal S2 Gastrointestinal: Present: normoactive bowel sounds, no tenderness, no guarding Integumentary: Present: warm and dry Additional Comments: Right lower extremity 2+ pitting edema noted, large clear fluid filled blister over dorsal aspect of right foot, ecchymosis surrounding blister, tenderness noted, incisions stapled lateral and medial right lower extremity clean dry intact no erythema, moves ankle and toes when prompted, good sensation bilaterally, drain in place. Bilateral dorsal aspects of hands with multiple blood filled blisters, tender, no splinter hemorrhages. Minimal lower extremity edema on left. Neurologic: Present: no focal deficit, no asterixis, alert and oriented x3, strength 5/5, CN 3-12 intact Musculoskeletal: Present: no deformities, no erythema, no cyanosis, no clubbing Psychiatric: Present: mood/affect appropriate, cooperative - Lab 07/27/16 05:09 07/27/16 05:09 Most recent lab results Calcium 9.4 mg/dL (8.6-10.8) 07/27/16 05:09 Phosphorus 3.6 mg/dL (2.3-4.7) 07/27/16 05:09 Magnesium 1.9 mg/dL (1.6-2.6) 07/27/16 05:09 Urine Creatinine 59 mg/dL 07/13/16 21:00 Urine Total Protein 66 mg/dL (1-14) H 07/13/16 21:00 - VTE Documentation of Mechanical Device: Graduated compression elastic hosiery Consult Discharge Plan - Plan Referrals: Con Vogt CNP [Advanced Practice Nurse] - 08/02/16 3:30 pm Aliyah Prado CNP [Primary Care Provider] - (walk in facilities.. no need for an appointment. Patient will go to rehab upon discharge)
[2016-07-27] MEDS ORDERED: Folic Acid 1 MG TABLET PO SCH (09:00)
[2016-07-27] MEDS ORDERED: predniSONE 20 MG TABLET PO SCH (09:00)
--- NOTE | 2016-07-27 09:59 | Rheumatology Progress Note ---
<Jluis Sanders - Last Filed: 07/27/16 13:31> Date of Encounter: 07/27/16 Time of Encounter: 09:10 Rheumatology Assess and Plan (1) Gram-positive cocci bacteremia Current Visit: Yes Status: Acute She is currently on cefepime and daptomycin. WBC have improved since her fasciotomy. KEM planned for today to evaluate for possible endocarditis. Continued management per primary team and infectious disease (2) Diffuse pulmonary alveolar hemorrhage Current Visit: Yes Status: Acute Patient has been doing well, from a lung standpoint on 40 mg prednisone now. She has had an overall decrease in her need of supplemental oxygen since admission and is at 4 L currently. She does report having some increased amount of hemopytisis of bright red blood since last spoken to. Patient found to have p-ANCA and MPO antibodies, suggesting microscopic polyangiitis, that appears to be isolated to the lungs. Agree with pulmonology regarding pulse dose steroids Will hold rituximab until resolution of patient acute medical concerns are resolved With report of return of bright red blood hemoptysis, will ask pulmonology to see her again for further evaluation will discuss care options with pulmonology (3) P-ANCA and MPO antibodies positive Current Visit: Yes Status: Acute Elevation in patient in p-ANCA and MPO antibodies are suggestive of microscopic polyangitis. Plan as above (4) Infectious fasciitis Current Visit: Yes Status: Acute As above (5) Renal insufficiency Current Visit: Yes Status: Resolved Patient's renal function has improved and remained stable. She does have history of atrial fibrillation and uncontrolled diabetes mellitus, but patient is p-ANCA positive with anti-MPO antibodies present, but no crescents seen on preliminary renal biopsy. Vasculitis likely not affecting patient kidneys Anti-GBM antibody is negative Further plan as above Nephrology is following and appreciate recommendations for continued management/ care Continue to monitor renal function with daily chemistry Avoid nephrotoxic agents if possible (6) Diabetes mellitus type 2, uncontrolled Current Visit: Yes Status: Chronic Patient blood sugars will continue to require close monitoring given her continued need of glucocorticoids. Qualifiers: Diabetes mellitus complication status: with neurologic complications Diabetes mellitus complication detail: with unspecified neuropathy Diabetes mellitus assisted insulin use: with assisted use Qualified Code(s): E11.40 - Type 2 diabetes mellitus with diabetic neuropathy, unspecified; E11.65 - Type 2 diabetes mellitus with hyperglycemia; Z79.4 - technician terminal and repeater (current) use of insulin (7) CORINNE positive Current Visit: Yes Status: Acute CORINNE positive, histone positive in the setting of hydralazine. May be unrelated at this time. - Subjective Interval history: Patient reports feeling about the same, but more tired than previous. She does report that there was some difficulty sleeping last night on account of misplacement of her nasal cannula. She reports that although her cough has been improving, she has begun to cough up some more bright red blood, whereas she was coughing up clotting blood previously. She states that she has noticed some more swollen nodules in her hands. Review of systems: Gen.: Denies fever/chills HEENT: Denies sore throat, Resp: Denies shortness of breath, mild cough productive of more bright red blood CV: Denies chest pain, no pain with cough GI: Appetite good, no N/V, denies abdominal pain Skin: Reports development of dark colored/redish nodules on hands, erythema on right foot, and blister in right foot MSK: reports some tenderness in her right lower extremity Exam Vital Signs, Last 4 Hours Temp Pulse Resp BP Pulse Ox 07/27/16 08:04 97.9 F 82 16 167/78 94 Exam: General: Cooperative, pleasant, no acute distress, alert and oriented 3, answers questions appropriately, on 4 L supplemental oxygen HEENT: Normocephalic, atraumatic, oral mucosa moist, small wound on left distal tongue Respiratory: No accessory muscle usage, CTA b/l Cardiovascular: Regular rate and rhythm, S1 and S2 present, no murmurs/rubs/ gallops/clicks appreciated Extremities: noncyanotic, pedal edema on right, mild edema on left, slightly cool to touch Neurological: Alert and oriented 3, no facial droop, no focal deficits Skin: Raised, tender, erythematous papules on the hands. Right foot with purpura with central blister. Objective Data 07/27/16 05:09 07/27/16 05:09 Immunology Rheumatoid Factor < 15 IU/mL (0-29) 07/11/16 17:44 Cycl Citrul Peptide IgG 12 Units (0-19) 07/11/16 17:44 CORINNE Screen DETECTED (None Detected) A 07/11/16 17:44 CORINNE Titer 1:1280 (<1:40) H 07/11/16 17:44 Myeloperoxidase Ab 44 AU/mL (0-19) H 07/11/16 17:44 ANCA IgG 1:5120 (<1:20) H 07/13/16 14:17 SS-A/Ro 52 kDa Ab 2 AU/mL (0-40) 07/13/16 16:45 SS-A Ro 60 kDa Ab 71 AU/mL (0-40) H 07/13/16 16:45 SS-B/La Antibody 0 AU/mL (0-40) 07/13/16 16:45 Sm (Mcdowell) IgG Ab, Quant 0 AU/mL (0-40) 07/13/16 16:45 Scl-70 IgG Ab 0 AU/mL (0-40) 07/11/16 17:44 Anti-U1-LOADING INSPECTOR IgG, Quant 0 AU/mL (0-40) 07/13/16 16:45 Histone IgG Antibody 2.5 Units (0.0-0.9) H 07/19/16 07:48 Glomerular Base Mem IgG 0 AU/mL (0-19) 07/13/16 14:17 Glomer Base Mem IgG IFA NEGATIVE (Negative) 07/13/16 14:17 Serine Protease 3 Ab 5 AU/mL (0-19) 07/11/16 17:44 Complement C3 138 mg/dL (88-201) 07/11/16 17:44 Complement C4 22 mg/dL (10-40) 07/11/16 17:44 Short CBC 07/27/16 Range/Units 05:09 WBC 17.4 H (4.3-11.1) K/mcL Hgb 8.4 L (11.5-15.4) g/dL Hct 26.1 L (35.3-44.9) % Plt Count 108 L (140-400) K/mcL Neutrophils # 13.5 H (1.6-8.9) K/mcL BMP 07/27/16 Range/Units 05:09 Sodium 141 (136-145) mEq/L Potassium 4.6 H (3.5-4.5) mEq/L Chloride 103 (98-109) mEq/L Carbon Dioxide 28 (19-29) mEq/L BUN 34 H (7-20) mg/dL Creatinine 1.04 (0.57-1.11) mg/dL Glucose 154 H (70-99) mg/dL Calcium 9.4 (8.6-10.8) mg/dL - VTE Documentation of Mechanical Device: Graduated compression elastic hosiery Consult Discharge Plan - Plan Referrals: Con Vogt [employer]INE[employer] [Advanced Practice Nurse] - 08/02/16 3:30 pm Aliyah Prado CNP [Primary Care Provider] - (walk in facilities.. no need for an appointment. Patient will go to rehab upon discharge) <Amrit Cai - Last Filed: 07/27/16 14:42> Date of Encounter: 07/27/16 Rheumatology Assess and Plan (1) Diffuse pulmonary alveolar hemorrhage Current Visit: Yes Status: Acute (2) CORINNE positive Current Visit: Yes Status: Acute (3) P-ANCA and MPO antibodies positive Current Visit: Yes Status: Acute (4) Gram-negative bacterial infection Current Visit: Yes Status: Acute (5) Rash and nonspecific skin eruption Current Visit: Yes Status: Acute Exam Vital Signs, Last 4 Hours Temp Pulse Resp BP Pulse Ox 07/27/16 12:49 97.7 F 84 18 144/73 93 07/27/16 11:01 97.8 F 84 12 162/90 92 Objective Data 07/27/16 05:09 07/27/16 05:09 Immunology Rheumatoid Factor < 15 IU/mL (0-29) 07/11/16 17:44 Cycl Citrul Peptide IgG 12 Units (0-19) 07/11/16 17:44 CORINNE Screen DETECTED (None Detected) A 07/11/16 17:44 CORINNE Titer 1:1280 (<1:40) H 07/11/16 17:44 Myeloperoxidase Ab 44 AU/mL (0-19) H 07/11/16 17:44 ANCA IgG 1:5120 (<1:20) H 07/13/16 14:17 SS-A/Ro 52 kDa Ab 2 AU/mL (0-40) 07/13/16 16:45 SS-A Ro 60 kDa Ab 71 AU/mL (0-40) H 07/13/16 16:45 SS-B/La Antibody 0 AU/mL (0-40) 07/13/16 16:45 Sm (Mcdowell) IgG Ab, Quant 0 AU/mL (0-40) 07/13/16 16:45 Scl-70 IgG Ab 0 AU/mL (0-40) 07/11/16 17:44 Anti-U1-LOADING INSPECTOR IgG, Quant 0 AU/mL (0-40) 07/13/16 16:45 Histone IgG Antibody 2.5 Units (0.0-0.9) H 07/19/16 07:48 Glomerular Base Mem IgG 0 AU/mL (0-19) 07/13/16 14:17 Glomer Base Mem IgG IFA NEGATIVE (Negative) 07/13/16 14:17 Serine Protease 3 Ab 5 AU/mL (0-19) 07/11/16 17:44 Complement C3 138 mg/dL (88-201) 07/11/16 17:44 Complement C4 22 mg/dL (10-40) 07/11/16 17:44 All other labs normal. - Attending Attestation I examined this patient and my medical decision making was reviewed with the resident physician. I agree with the documented findings, disposition and treatment as described with these exceptions. Since yesterday, patient has had recurrent hemoptysis likely recurring pulmonary hemorrhage. Still with microscopic polyangiitis high on differential. Dermatology biopsied lesions with read pending. On antibiotics due to bacteremia without source. Unfortunately, this has prevented more definitive immunosuppression . I have discussed the case with pulmonary, nephrology, ID and medicine. She will need pulse steroids and plasmapheresis. Plan is to transfer to tertiary care center. Any further decompensation now, would escalate care appropriately.
[2016-07-27] MEDS: Diltiazem CD (24hr) 180 MG CAPSULE PO SCH (10:02)
[2016-07-27] MEDS: Isosorbide MONOnitrate (24 HR) 60 MG TAB.ER.24H PO SCH (10:02)
[2016-07-27] MEDS: Insulin LISPRO 300 UNITS/3 ML VIAL SQ SCH ×7 (10:03→21:06)
[2016-07-27] MEDS: Insulin DETEMIR 100 UNIT/ML X5UNITS SQ SCH ×2 (10:13→21:07)
[2016-07-27] MEDS ORDERED: 0.9 % Sodium Chloride 500 ML IVC ONE (10:27)
[2016-07-27] MEDS ORDERED: Tetracaine/Benzocaine/Butamben 200MG/SPRAY (100SPY/BOT) MM ONE (10:27)
--- NOTE | 2016-07-27 11:22 | Infectious Disease Progress No ---
Date of Encounter: 07/27/16 Time of Encounter: 11:20 - Assessment and Plan (1) Gram-positive bacteremia Current Visit: Yes Status: Acute Blood cultures drawn 07/18/16 are positive 2/2 sets for VRE. Additional cultures drawn 07/19/16 are positive 1/2 sets for VRE. Repeat cultures drawn 07/23/16 and 07/24/16 negative for VRE, but positive for E. coli. Source unclear. No obvious source identified. Continue Daptomycin IV (day 4 since first set of negative cultures). Duration of treatment depends on the clinical picture, but likely 14 days from the first set of negative blood cultures. Monitor renal function and dose-adjust antibiotics. Check CK level weekly for duration of Daptomycin. (2) Gram-negative bacteremia Current Visit: Yes Status: Acute Blood cultures drawn 07/23/16 are positive 2/2 sets for E. coli. Additional blood cultures drawn 07/24/16 are positive 2/2 sets for E. coli as well. Additional repeat blood cultures drawn 07/26/16 are pending x 2 sets. Source likely RLE infection. The patient has one definitive minor Modified Cortes's Criteria. Given her persistent bacteremia and the new-onset of the bilateral hand and right foot lesions, concern for IE. TTE negative for vegetations. Would recommend KEM to rule out IE. Continue Cefepime 2 grams IV Q12H. Duration of treatment depends on the clinical picture. Monitor renal function and dose-adjust antibiotics. (3) Compartment syndrome Current Visit: Yes Status: Acute Status post fasciotomy 07/23/[address] Lim. Causative organism E. coli. Continue Cefepime as above. Discontinue Flagyl. Continue wound care as outline per the vascular team. Duration of treatment depends on the clinical picture. Qualifiers: Compartment syndrome type: non-traumatic Compartment syndrome location: lower extremity Laterality: right Qualified Code(s): M79.A21 - Nontraumatic compartment syndrome of right lower extremity (4) Acute on chronic respiratory failure with hypoxia Current Visit: Yes Status: Acute Secondary to alveolar hemorrhage. Status post bronch - report reviewed. High index of suspicion for vasculitis per rheumatology. Hemoptysis has re-started this morning. Discussed with Dr. Urias this morning. Plans to have pulmonary re-evaluate. Continue to observe. (5) CORINNE positive Current Visit: Yes Status: Acute Rheumatology following. (6) Diffuse pulmonary alveolar hemorrhage Current Visit: Yes Status: Acute (7) Hemoptysis Current Visit: Yes Status: Acute Secondary to diffuse pulmonary alveolar hemorrhage. Re-started this morning. (8) Elevated troponin Current Visit: Yes Status: Acute Likely demand ischemia. (9) Atrial fibrillation with RVR Current Visit: Yes Status: Acute Rate controlled. Management per the primary team. (10) Skin lesion of hand Current Visit: Yes Status: Acute Location: Bilateral hands with new lesion to the right foot. Etiology unclear: cutaneous vasculitis vs. Osler nodes vs. other. Dermatology consulted. Status post skin biopsy this morning. Await biopsy results. Continue to monitor closely for progression of the lesions. - Subjective Interval history: Patient seen and examined. No acute events noted overnight. Patient lying in bed , pleasant and cooperative. States she is doing okay today, but continues to have pain in the right leg, but states it is improved since yesterday. Reports is 3/10 currently. Denies fevers or chills or rigors. Denies chest pain or shortness of breath. Reports she started coughing up "red" again this morning. Denies nausea, vomiting, or diarrhea. Denies abdominal pain, but states her appetite is not very good. Denies urinary complaints and reports her last BM was two days ago. Complains of painful bruises to her bilateral hands. Infect Dis PN-Objective Data - Labs CBC & Chem 7: 07/27/16 05:09 07/27/16 05:09 Labs: Laboratory Results - last 24 hr 07/25/16 07/25/16 07/25/16 08:29 11:38 20:49 WBC RBC Hgb Hct MCV MCH MCHC RDW Plt Count MPV Immature Gran % Seg Neutrophils % Lymphocytes % Monocytes % Eosinophils % Basophils % Neutrophils # Lymphocytes # Monocytes # Eosinophils # Basophils # Nucleated RBCs/100 WBC Sodium Potassium Chloride Carbon Dioxide BUN Creatinine Est GFR ( Amer) Est GFR (Non-Af Amer) BUN/Creatinine Ratio Glucose POC Glucose 84 72 188 H Calculated Osmolality Calcium Phosphorus Magnesium Vitamin B12 Folate Blood Type Antibody Screen Crossmatch 07/26/16 07/26/16 07/26/16 08:07 11:31 15:14 WBC RBC Hgb Hct MCV MCH MCHC RDW Plt Count MPV Immature Gran % Seg Neutrophils % Lymphocytes % Monocytes % Eosinophils % Basophils % Neutrophils # Lymphocytes # Monocytes # Eosinophils # Basophils # Nucleated RBCs/100 WBC Sodium Potassium Chloride Carbon Dioxide BUN Creatinine Est GFR ( Amer) Est GFR (Non-Af Amer) BUN/Creatinine Ratio Glucose POC Glucose 166 H Calculated Osmolality Calcium Phosphorus Magnesium Vitamin B12 232 Folate 4.0 L Blood Type O NEGATIVE Antibody Screen NEGATIVE Crossmatch See Detail 07/26/16 07/27/16 07/27/16 20:37 05:09 05:09 WBC 17.4 H RBC 2.94 L Hgb 8.4 L Hct 26.1 L MCV 88.8 MCH 28.6 MCHC 32.2 RDW 19.6 H Plt Count 108 L MPV 11.0 Immature Gran % 1.0 Seg Neutrophils % 77.4 Lymphocytes % 16.9 Monocytes % 4.4 Eosinophils % 0.2 Basophils % 0.1 Neutrophils # 13.5 H Lymphocytes # 2.9 Monocytes # 0.8 Eosinophils # 0.0 Basophils # 0.0 Nucleated RBCs/100 WBC 0.3 H Sodium 141 Potassium 4.6 H Chloride 103 Carbon Dioxide 28 BUN 34 H Creatinine 1.04 Est GFR ( Amer) > 60 Est GFR (Non-Af Amer) 54 L BUN/Creatinine Ratio 33 H Glucose 154 H POC Glucose 187 H Calculated Osmolality 303 H Calcium 9.4 Phosphorus 3.6 Magnesium 1.9 Vitamin B12 Folate Blood Type Antibody Screen Crossmatch 07/27/16 07:59 WBC RBC Hgb Hct MCV MCH MCHC RDW Plt Count MPV Immature Gran % Seg Neutrophils % Lymphocytes % Monocytes % Eosinophils % Basophils % Neutrophils # Lymphocytes # Monocytes # Eosinophils # Basophils # Nucleated RBCs/100 WBC Sodium Potassium Chloride Carbon Dioxide BUN Creatinine Est GFR ( Amer) Est GFR (Non-Af Amer) BUN/Creatinine Ratio Glucose POC Glucose 165 H Calculated Osmolality Calcium Phosphorus Magnesium Vitamin B12 Folate Blood Type Antibody Screen Crossmatch Cultures: Cultures 07/24/16 00:36 Anaerobic Culture - Preliminary Right Leg At this time, no anaerobic growth is present. The culture will be finalized after 5 days of incubation. 07/24/16 00:34 Anaerobic Culture - Preliminary Right Leg At this time, no anaerobic growth is present. The culture will be finalized after 5 days of incubation. 07/24/16 00:42 Anaerobic Culture - Preliminary Right Leg At this time, no anaerobic growth is present. The culture will be finalized after 5 days of incubation. 07/19/16 12:24 Blood Culture - Final Peripheral Venipuncture Vanc. Resistant Enterococcus 07/24/16 00:34 Wound Culture - Final Right Leg Escherichia coli 07/24/16 08:38 Blood Culture - Final Peripheral Venipuncture Escherichia coli 07/23/16 17:16 Blood Culture - Final Peripheral Venipuncture Escherichia coli 07/24/16 08:29 Blood Culture - Final Peripheral Venipuncture Escherichia coli 07/23/16 17:20 Blood Culture - Final Peripheral Venipuncture Escherichia coli 07/23/16 21:20 Surgical Biopsy Culture - Final Right Leg Escherichia coli 07/24/16 00:34 Wound Culture - Final Right Leg Escherichia coli 07/19/16 12:31 Blood Culture - Final Peripheral Venipuncture No growth. 07/18/16 11:32 Blood Culture - Final Peripheral Venipuncture Gram Positive Cocci 07/18/16 11:37 Blood Culture - Final Peripheral Venipuncture Vanc. Resistant Enterococcus 07/11/16 09:07 Blood Culture - Final Peripheral Venipuncture No growth. 07/13/16 12:30 Sputum Culture - Final Sputum 07/11/16 16:47 Respiratory Culture - Final Right Lower Lobe Lung Normal upper respiratory tract juan m. No apparent pathogens isolated. 07/11/16 16:47 Gram Stain - Final Right Lower Lobe Lung 07/11/16 16:47 Acid Fast Stain - Final Right Lower Lobe Lung 07/12/16 23:12 Legionella Antigen - Final Urine,Clean Catch Streptococcus pneumoniae Antigen (M - Final Serology 07/24/16 07/20/16 07/19/16 Range/Units 08:29 17:46 12:24 Urine Color (Yellow) Urine Clarity (Clear) Urine pH (5.0-8.0) pH Units Ur Specific Early (1.010-1.025) Urine Protein (Neg-Trace) mg/dL Urine Glucose (UA) (Normal) mg/dL Urine Ketones (Negative) mg/dL Urine Blood (Negative) Urine Nitrite (Negative) Urine Bilirubin (Negative) Urine Urobilinogen (Normal) mg/dL Ur Leukocyte Esterase (Negative) Urine Microscopic RBC (0-3) per hpf Urine Microscopic WBC (0-3) per hpf Ur Squamous Epith Cells (None-Few) per lpf Urine Bacteria (None-Few) per hpf Hyaline Casts (None-Few) per lpf Urine Yeast Ur Culture Indicated? (NO) Urine Creatinine mg/dL Urine Microalbumin mg/L Microalb/Creat Ratio (0-30) Protein/Creatinin Ratio (0-0.20) mg/mg Urine Total Protein (1-14) mg/dL Urine Hemosiderin (Negative) Fluid Source Fluid Volume mL Fluid Appearance (Clear) Fluid RBC Fld Tot Nucleated Cell Fluid Seg Neutrophil % % Fluid Lymphocytes % % Fluid Monocytes % % Fluid Other Cells % % A. baumannii (PCR) Not Detected Not Detected (Not Detect) Jenna albicans (PCR) Not Detected Not Detected (Not Detect) C. glabrata (PCR) Not Detected Not Detected (Not Detect) C. krusei (PCR) Not Detected Not Detected (Not Detect) C. parapsilosis (PCR) Not Detected Not Detected (Not Detect) C. tropicalis (PCR) Not Detected Not Detected (Not Detect) Enterobacteriac sp PCR DETECTED A Not Detected (Not Detect) E. cloacae complex PCR Not Detected Not Detected (Not Detect) Enterococcus sp PCR Not Detected DETECTED A (Not Detect) E. coli (PCR) DETECTED A Not Detected (Not Detect) H. influenzae (PCR) Not Detected Not Detected (Not Detect) Hepatitis A IgM Ab (Nonreactive) Hep Bs Antigen (Nonreactive) Hep B Core IgM Ab (Nonreactive) Hepatitis C Ab Screen (Nonreactive) HIV Ag/Ab Combo Qual (Nonreactive) Klebsiella oxytoca PCR Not Detected Not Detected (Not Detect) Klebsiella pneumoniae Not Detected Not Detected (Not Detect) List. monocytogenes PCR Not Detected Not Detected (Not Detect) N. meningitidis (PCR) Not Detected Not Detected (Not Detect) Proteus species (PCR) Not Detected Not Detected (Not Detect) Serratia marcescens PCR Not Detected Not Detected (Not Detect) Staphylococcus sp PCR Not Detected Not Detected (Not Detect) Staph aureus (PCR) Not Detected Not Detected (Not Detect) mecA-Methicil Res Gene Not Detected N/A (Not Detect) Streptococcus sp PCR Not Detected Not Detected (Not Detect) Group A Strep DNA Not Detected Not Detected (Not Detect) Group B Strep (PCR) Not Detected Not Detected (Not Detect) Strep pneumoniae (PCR) Not Detected Not Detected (Not Detect) P. aeruginosa (PCR) Not Detected Not Detected (Not Detect) TB (QFT) Gold In Tube INDETERMINATE (Negative) TB Test (QFT) Nil 0.03 IU/mL TB Test Mitogen - Nil 0.16 IU/mL Peter/B-Vanco Res Genes Not Detected DETECTED A (Not Detect) KPC (blaKPC) Detect PCR Not Detected N/A (Not Detect) 07/18/16 07/17/16 07/14/16 Range/Units 11:37 10:31 13:05 Urine Color (Yellow) Urine Clarity (Clear) Urine pH (5.0-8.0) pH Units Ur Specific Early (1.010-1.025) Urine Protein (Neg-Trace) mg/dL Urine Glucose (UA) (Normal) mg/dL Urine Ketones (Negative) mg/dL Urine Blood (Negative) Urine Nitrite (Negative) Urine Bilirubin (Negative) Urine Urobilinogen (Normal) mg/dL Ur Leukocyte Esterase (Negative) Urine Microscopic RBC (0-3) per hpf Urine Microscopic WBC (0-3) per hpf Ur Squamous Epith Cells (None-Few) per lpf Urine Bacteria (None-Few) per hpf Hyaline Casts (None-Few) per lpf Urine Yeast Ur Culture Indicated? (NO) Urine Creatinine mg/dL Urine Microalbumin mg/L Microalb/Creat Ratio (0-30) Protein/Creatinin Ratio (0-0.20) mg/mg Urine Total Protein (1-14) mg/dL Urine Hemosiderin (Negative) Fluid Source Fluid Volume mL Fluid Appearance (Clear) Fluid RBC Fld Tot Nucleated Cell Fluid Seg Neutrophil % % Fluid Lymphocytes % % Fluid Monocytes % % Fluid Other Cells % % A. baumannii (PCR) Not Detected (Not Detect) Jenna albicans (PCR) Not Detected (Not Detect) C. glabrata (PCR) Not Detected (Not Detect) C. krusei (PCR) Not Detected (Not Detect) C. parapsilosis (PCR) Not Detected (Not Detect) C. tropicalis (PCR) Not Detected (Not Detect) Enterobacteriac sp PCR Not Detected (Not Detect) E. cloacae complex PCR Not Detected (Not Detect) Enterococcus sp PCR DETECTED A (Not Detect) E. coli (PCR) Not Detected (Not Detect) H. influenzae (PCR) Not Detected (Not Detect) Hepatitis A IgM Ab (Nonreactive) Hep Bs Antigen (Nonreactive) Hep B Core IgM Ab (Nonreactive) Hepatitis C Ab Screen (Nonreactive) HIV Ag/Ab Combo Qual Nonreactive (Nonreactive) Klebsiella oxytoca PCR Not Detected (Not Detect) Klebsiella pneumoniae Not Detected (Not Detect) List. monocytogenes PCR Not Detected (Not Detect) N. meningitidis (PCR) Not Detected (Not Detect) Proteus species (PCR) Not Detected (Not Detect) Serratia marcescens PCR Not Detected (Not Detect) Staphylococcus sp PCR Not Detected (Not Detect) Staph aureus (PCR) Not Detected (Not Detect) mecA-Methicil Res Gene Not Detected (Not Detect) Streptococcus sp PCR Not Detected (Not Detect) Group A Strep DNA Not Detected (Not Detect) Group B Strep (PCR) Not Detected (Not Detect) Strep pneumoniae (PCR) Not Detected (Not Detect) P. aeruginosa (PCR) Not Detected (Not Detect) TB (QFT) Gold In Tube INDETERMINATE (Negative) TB Test (QFT) Nil 0.04 IU/mL TB Test Mitogen - Nil 0.03 IU/mL Peter/B-Vanco Res Genes DETECTED A (Not Detect) KPC (blaKPC) Detect PCR Not Detected (Not Detect) 07/13/16 07/13/16 07/13/16 Range/Units 21:00 21:00 21:00 Urine Color (Yellow) Urine Clarity (Clear) Urine pH (5.0-8.0) pH Units Ur Specific Early (1.010-1.025) Urine Protein (Neg-Trace) mg/dL Urine Glucose (UA) (Normal) mg/dL Urine Ketones (Negative) mg/dL Urine Blood (Negative) Urine Nitrite (Negative) Urine Bilirubin (Negative) Urine Urobilinogen (Normal) mg/dL Ur Leukocyte Esterase (Negative) Urine Microscopic RBC (0-3) per hpf Urine Microscopic WBC (0-3) per hpf Ur Squamous Epith Cells (None-Few) per lpf Urine Bacteria (None-Few) per hpf Hyaline Casts (None-Few) per lpf Urine Yeast Ur Culture Indicated? (NO) Urine Creatinine 59 58 mg/dL Urine Microalbumin 235 mg/L Microalb/Creat Ratio 405 H (0-30) Protein/Creatinin Ratio 1.12 H (0-0.20) mg/mg Urine Total Protein 66 H (1-14) mg/dL Urine Hemosiderin NEGATIVE (Negative) Fluid Source Fluid Volume mL Fluid Appearance (Clear) Fluid RBC Fld Tot Nucleated Cell Fluid Seg Neutrophil % % Fluid Lymphocytes % % Fluid Monocytes % % Fluid Other Cells % % A. baumannii (PCR) (Not Detect) Jenna albicans (PCR) (Not Detect) C. glabrata (PCR) (Not Detect) C. krusei (PCR) (Not Detect) C. parapsilosis (PCR) (Not Detect) C. tropicalis (PCR) (Not Detect) Enterobacteriac sp PCR (Not Detect) E. cloacae complex PCR (Not Detect) Enterococcus sp PCR (Not Detect) E. coli (PCR) (Not Detect) H. influenzae (PCR) (Not Detect) Hepatitis A IgM Ab (Nonreactive) Hep Bs Antigen (Nonreactive) Hep B Core IgM Ab (Nonreactive) Hepatitis C Ab Screen (Nonreactive) HIV Ag/Ab Combo Qual (Nonreactive) Klebsiella oxytoca PCR (Not Detect) Klebsiella pneumoniae (Not Detect) List. monocytogenes PCR (Not Detect) N. meningitidis (PCR) (Not Detect) Proteus species (PCR) (Not Detect) Serratia marcescens PCR (Not Detect) Staphylococcus sp PCR (Not Detect) Staph aureus (PCR) (Not Detect) mecA-Methicil Res Gene (Not Detect) Streptococcus sp PCR (Not Detect) Group A Strep DNA (Not Detect) Group B Strep (PCR) (Not Detect) Strep pneumoniae (PCR) (Not Detect) P. aeruginosa (PCR) (Not Detect) TB (QFT) Gold In Tube (Negative) TB Test (QFT) Nil IU/mL TB Test Mitogen - Nil IU/mL Peter/B-Vanco Res Genes (Not Detect) KPC (blaKPC) Detect PCR (Not Detect) 07/13/16 07/13/16 07/11/16 Range/Units 21:00 16:45 16:47 Urine Color Yellow (Yellow) Urine Clarity Cloudy A (Clear) Urine pH 6.0 (5.0-8.0) pH Units Ur Specific Early 1.025 (1.010-1.025) Urine Protein 100 H (Neg-Trace) mg/dL Urine Glucose (UA) >=1000 H (Normal) mg/dL Urine Ketones Negative (Negative) mg/dL Urine Blood Moderate H (Negative) Urine Nitrite Negative (Negative) Urine Bilirubin Negative (Negative) Urine Urobilinogen Normal (Normal) mg/dL Ur Leukocyte Esterase Negative (Negative) Urine Microscopic RBC 0-3 (0-3) per hpf Urine Microscopic WBC 3-5 H (0-3) per hpf Ur Squamous Epith Cells Many H (None-Few) per lpf Urine Bacteria None Seen (None-Few) per hpf Hyaline Casts Few (None-Few) per lpf Urine Yeast Test Not Performed Ur Culture Indicated? NO (NO) Urine Creatinine mg/dL Urine Microalbumin mg/L Microalb/Creat Ratio (0-30) Protein/Creatinin Ratio (0-0.20) mg/mg Urine Total Protein (1-14) mg/dL Urine Hemosiderin (Negative) Fluid Source RLL BAL Fluid Volume 22 mL Fluid Appearance Cloudy A (Clear) Fluid RBC TNP Fld Tot Nucleated Cell TNP Fluid Seg Neutrophil % 27.0 % Fluid Lymphocytes % 50.0 % Fluid Monocytes % 2.0 % Fluid Other Cells % 21.0 % A. baumannii (PCR) (Not Detect) Jenna albicans (PCR) (Not Detect) C. glabrata (PCR) (Not Detect) C. krusei (PCR) (Not Detect) C. parapsilosis (PCR) (Not Detect) C. tropicalis (PCR) (Not Detect) Enterobacteriac sp PCR (Not Detect) E. cloacae complex PCR (Not Detect) Enterococcus sp PCR (Not Detect) E. coli (PCR) (Not Detect) H. influenzae (PCR) (Not Detect) Hepatitis A IgM Ab Nonreactive (Nonreactive) Hep Bs Antigen Nonreactive (Nonreactive) Hep B Core IgM Ab Nonreactive (Nonreactive) Hepatitis C Ab Screen Nonreactive (Nonreactive) HIV Ag/Ab Combo Qual (Nonreactive) Klebsiella oxytoca PCR (Not Detect) Klebsiella pneumoniae (Not Detect) List. monocytogenes PCR (Not Detect) N. meningitidis (PCR) (Not Detect) Proteus species (PCR) (Not Detect) Serratia marcescens PCR (Not Detect) Staphylococcus sp PCR (Not Detect) Staph aureus (PCR) (Not Detect) mecA-Methicil Res Gene (Not Detect) Streptococcus sp PCR (Not Detect) Group A Strep DNA (Not Detect) Group B Strep (PCR) (Not Detect) Strep pneumoniae (PCR) (Not Detect) P. aeruginosa (PCR) (Not Detect) TB (QFT) Gold In Tube (Negative) TB Test (QFT) Nil IU/mL TB Test Mitogen - Nil IU/mL Peter/B-Vanco Res Genes (Not Detect) KPC (blaKPC) Detect PCR (Not Detect) Exam - Constitutional Vitals: Temp Pulse Resp BP Pulse Ox 97.8 F 84 12 162/90 92 07/27/16 11:01 07/27/16 11:01 07/27/16 11:01 07/27/16 11:01 07/27/16 11:01 General appearance: cooperative, no acute distress, obese - Head Head exam: Present: atraumatic, normal inspection, normocephalic - Eye Eye exam: Present: EOMI, normal appearance, PERRL Pupils: Present: normal accommodation Additional comments: No subconjunctival hemorrhage noted. - ENT ENT exam: Present: mucous membranes moist Additional comments: Painful lesion noted to the right side of the tongue. - Neck Neck exam: Present: full ROM, normal inspection - Respiratory Respiratory exam: Present: CTAB. Absent: rales, respiratory distress, rhonchi, wheezes - Cardiovascular Cardiovascular exam: Present: RRR, +S1, +S2 - GI/Abdominal GI/Abdominal exam: Present: distended, normal bowel sounds, soft. Absent: tenderness - Extremities Exam Extremities exam: Present: pedal edema (2+ RLE, 1+ LLE), tenderness (RLE). Absent: joint swelling Additional comments: RLE surgical sites noted to be QUINTON with wound edges well-approximated and woo intact. No erythema, bleeding, or purulent drainage noted. YAMEL drain noted with small amount of serosanguinous drainage noted. Multiple fluid-filled , ecchymotic blisters noted to the bilateral hands. New lesion noted to the right lateral foot that evolved from an area of ecchymosis and developed a fluid -filled lesion overnight. - Neurological Exam Neurological exam: Present: alert, oriented X3, no focal deficits - Psychiatric Psychiatric exam: Present: normal affect, normal mood - Skin Skin exam: Present: dry, intact, normal color, warm - VTE Documentation of Mechanical Device: Graduated compression elastic hosiery Consult Discharge Plan - Plan Referrals: Con Vogt CNP [Advanced Practice Nurse] - 08/02/16 3:30 pm Johan,Aliyah K, [facility] [Primary Care Provider] - (walk in facilities.. no need for an appointment. Patient will go to rehab upon discharge) - Attending Attestation I examined this patient and my medical decision-making was reviewed with the JEWEL BEARING MAKER/PA/Advanced Practice Nurse/Resident Physician. I agree with the documented findings, disposition and treatment plan as described except to the extent set forth below.
[2016-07-27] MEDS: *HR* Midazolam HCl 5 MG/5 ML VIAL IVP PRN ×2 (11:30→11:35)
[2016-07-27] MEDS: *HR* FentaNYL (PF) 100 MCG/2 ML VIAL IVP PRN ×2 (11:30→11:35)
--- NOTE | 2016-07-27 12:31 | Dermatology Consult Note ---
Date of Encounter: 07/27/16 Time of Encounter: 07:10 History of Present Illness Reason for Consult: RASH History of Present Illness: 60 Y/O WF W/ PMH CAD, DM, anemia, A fib w/ RVR and copd and recent Dx of RA, and admitted to [facility] on 07/11 with a complicated hospital course of diffuse pulmonary alveolar hemorrhage, GN bacteremia, and + ANCA and CORINNE and MPO antibodies, and also compartment syndrome. Pt now w/ "blistery red rash" on hands x few days. No treatment. More lesions w/ time. Pt has been on high dose steroids and numerous antibiotics. Overall, she is feeling well despite numerous hospital issues Review of Systems General/Constitutional: Patient denies fevers, chills, nor recent unintended weight loss, night sweats, no change in appetite or malaise. Hematologic: Patient denies new or enlarging lumps or bumps. Skin: Patient denies new or changing moles, or rash other than what is mentioned above. Past Med Surg Social Fam HX - Past Medical History Medical history: atrial fibrillation, COPD, coronary artery disease, diabetes, GERD, hyperlipidemia, hypertension, myocardial infarction, RA, thyroid disease, TIA Psychiatric history: no psych history - Past Surgical History Surgical History: angioplasty/stent, coronary bypass (CABG), hysterectomy, thyroidectomy - Social History Smoking Status: Former smoker Packs per day: 1.5 Smokeless Tobacco Status: No Alcohol use: none Drug use: marijuana - Family History Mother Adopted: No Family Member Ethnicity: Non- Living Status: Hx Family Cardiac Disorders: Yes ( of ID) Hx Family Respiratory Disorders: No Hx Family Cancer: Yes (breast ca) Hx Family GI Disorders: No Hx Family Endocrine Disorder: No Hx Family Neuromuscular Disorders: No Hx Family Neurologic Disorders: No Hx Family HEENT Disorders: No Hx Family Autoimmune Disorders: No Brother Living Status: Still Living Hx Family Cardiac Disorders: Yes Hx Family Respiratory Disorders: Yes Hx Family Cancer: Yes Hx Family Endocrine Disorder: Yes Hx Family Medical Disorders: Yes Medications and Allergies Clopidogrel [Plavix] 75 mg PO DAILY 06/10/15 [History] Cyclobenzaprine [Flexeril] 10 mg PO TID 06/10/15 [History] Gabapentin [Neurontin] 300 mg PO TID 06/10/15 [History] Insulin ASPART [NovoLOG] 21 unit SQ TIDWM 06/10/15 [History] Insulin Glargine [Lantus] 70 unit SQ HS 06/10/15 [History] Isosorbide DInitrate [Isosorbide Dinitrate] 30 mg PO BID 06/10/15 [History] Rosuvastatin [Crestor] 40 mg PO DAILY 06/10/15 [History] amLODIPine [Norvasc] 10 mg PO DAILY 06/10/15 [History] traMADol [Ultram] 50 mg PO QID 06/10/15 [History] Levothyroxine Sodium [Levoxyl] 125 mcg PO DAILY 02/01/16 [History] metFORMIN [Glucophage] 1,000 mg PO BID 02/01/16 [History] BuPROPion [Wellbutrin] 100 mg PO BID 03/20/16 [History] Fenofibrate 54 mg PO DAILY 03/20/16 [History] Hydralazine HCl 100 mg PO BID 03/26/16 [History] Omeprazole [PriLOSEC] 20 mg PO DAILY 03/26/16 [History] cloNIDine HCl [CloNIDine HCl] 0.2 mg PO BID #60 tablet 03/29/16 [Rx] Metoprolol [Lopressor] 100 mg PO BID 07/02/16 [History] Sennosides/Docusate Sodium [Senna Plus] 1 tab PO BID PRN 07/02/16 [History] Ferrous Sulfate 325 mg PO BIDWM #60 tablet. 07/03/16 [Rx] Losartan [Cozaar] 25 mg PO DAILY #30 tablet 07/03/16 [Rx] hydroCHLOROthiazide [Hydrochlorothiazide] 25 mg PO DAILY 07/11/16 [History] Allergies lisinopril Allergy (Verified 07/11/16 05:00) Swelling of Lip/Tongue/Throat Penicillins [PCN] Allergy (Verified 03/19/16 21:38) Hives Examination Vital Signs: Temp Pulse Resp BP Pulse Ox 97.8 F 84 12 162/90 92 07/27/16 11:01 07/27/16 11:01 07/27/16 11:01 07/27/16 11:01 07/27/16 11:01 General Examination: The patient appears alert, oriented X3, in no acute distress, healthy-appearing , normal mood. face and eyes normal. right tongue w/ punched out shallow ulceration. arms clear except b/l dorsal hands w/ purple purpuric papules and vesicles and few ecchymotic macules on palms - Assessment and Plan (1) Rash Current Visit: Yes Status: Acute Favor nodular vasculitis. I did two punch biopsies (one for regular histology, and one for DIF) that will be sent to [facility] today and I called dermpath at [facility] to make them aware of urgency of the case. Osler nodules also in differential. I also did a punch biopsy for fungal and bacterial culture that was sent to [facility]. I made Dr. Cai aware of my impressions (2) Tongue ulceration Current Visit: Yes Status: Acute r/o HSV vs oral ulcer from autoimmune disorder vs apthous ulcer. Consider Acyclovir if other physicians ok with this addition Procedure: Dermatology Date of procedure: 07/27/16 Procedure: PUNCH BIOPSY: Punch biopsy(s) of the lesion noted above left hand x 2 sites to establish and confirm diagnosis. The procedure, risks, benefits, alternatives and expected outcomes were discussed with the patient and consent was obtained. Time out called. Patient identified, procedure verified, site(s) identified and verified. Patient and staff present in agreement. Area(s) prepped with alcohol and anesthetized with 1.0% lidocaine with epinephrine at 1:100,000 concentration. 2 ml of lidocaine with epinephrine were injected Biopsy(s) of lesion performed. Lesion(s) closed with 4, 4'0 running sutures and bandaging applied. Specimen(s) sent to pathology. Patient instructed in routine post-op care. Patient instructed in routine post-op care and wound care handout given.. consent obtained, site verified. Consult Discharge Plan - Plan Referrals: Con Vogt CNP [Advanced Practice Nurse] - 08/02/16 3:30 pm Aliyah Prado CNP [Primary Care Provider] - (walk in facilities.. no need for an appointment. Patient will go to rehab upon discharge)
--- NOTE | 2016-07-27 12:35 | Internal Med Progress Note ---
Date of Encounter: 07/27/16 Time of Encounter: 12:33 - Assessment and plan (1) Anemia Current Visit: Yes Status: Acute Qualifiers: Anemia type: unspecified type Qualified Code(s): D64.9 - Anemia, unspecified (2) Acute on chronic respiratory failure with hypoxia Current Visit: Yes Status: Acute (3) Atrial fibrillation Current Visit: Yes Status: Chronic Qualifiers: Atrial fibrillation type: chronic Qualified Code(s): I48.2 - Chronic atrial fibrillation (4) Bacteremia Current Visit: Yes Status: Acute (5) Compartment syndrome Current Visit: Yes Status: Acute Qualifiers: Compartment syndrome type: non-traumatic Compartment syndrome location: lower extremity Laterality: right Qualified Code(s): M79.A21 - Nontraumatic compartment syndrome of right lower extremity (6) Diabetes mellitus type 2, uncontrolled Current Visit: Yes Status: Chronic Qualifiers: Diabetes mellitus complication status: with neurologic complications Diabetes mellitus complication detail: with unspecified neuropathy Diabetes mellitus prison insulin use: with prison use Qualified Code(s): E11.40 - Type 2 diabetes mellitus with diabetic neuropathy, unspecified; E11.65 - Type 2 diabetes mellitus with hyperglycemia; Z79.4 - MCC (current) use of insulin (7) Diffuse pulmonary alveolar hemorrhage Current Visit: Yes Status: Acute (8) DVT prophylaxis Current Visit: No Status: Acute (9) Fasciitis Current Visit: Yes Status: Acute (10) Rheumatoid arthritis Current Visit: Yes Status: Chronic Qualifiers: Rheumatoid arthritis location: unspecified site Rheumatoid factor presence : unspecified presence Qualified Code(s): M06.9 - Rheumatoid arthritis, unspecified - Subjective Interval history: PT seen and examined with son present at bedside. Reports of feeling better compared to the previous day, pain adequately controlled with current regimen. No overnight issues were reported. I was informed about the bilateral superficial hand lesions by ID and dermatology will be consulted for further evaluation. - Constitutional Vitals: Temp Pulse Resp BP Pulse Ox 97.8 F 84 12 162/90 92 07/27/16 11:01 07/27/16 11:01 07/27/16 11:01 07/27/16 11:01 07/27/16 11:01 General appearance: Present: cooperative, A&O X 3, morbidly obese, pleasant, no acute distress - Head Head exam: Present: atraumatic, normocephalic - Eye Eye exam: Present: normal appearance, conjuntiva pink, sclera anicteric - Respiratory Respiratory exam: Present: CTAB. Absent: accessory muscle use, rales, rhonchi, wheezes - Cardiovascular Cardiovascular exam: Present: RRR, +S1, +S2. Absent: diastolic murmur, gallop, rubs, systolic murmur - GI/Abdominal GI/Abdominal exam: Present: normal bowel sounds, soft, no peritoneal signs. Absent: distended, tenderness - Extremities Exam Extremities exam: Present: pedal edema (sutures and YAMEL drain intact in RLE ) Additional comments: erythematous blister on dorsal surface of left foot, and scattered erythematous pustules on bilateral knuckles - Neurological Exam Neurological exam: Present: alert, oriented X3 - Psychiatric Psychiatric exam: Present: normal affect, normal mood Internal Medicine: Result - Labs CBC & Chem 7: 07/27/16 05:09 07/27/16 05:09 Labs: Short CBC 07/27/16 Range/Units 05:09 WBC 17.4 H (4.3-11.1) K/mcL Hgb 8.4 L (11.5-15.4) g/dL Hct 26.1 L (35.3-44.9) % Plt Count 108 L (140-400) K/mcL Neutrophils # 13.5 H (1.6-8.9) K/mcL BMP 07/27/16 05:09 Sodium 141 Potassium 4.6 H Chloride 103 Carbon Dioxide 28 BUN 34 H Creatinine 1.04 Glucose 154 H Calcium 9.4 - ABG Interpretation ABG results: PT/INR, D-dimer PT 10.1 Seconds (9.4-12.1) 07/23/16 05:02 D-Dimer 6124 ng/mLFEU (0-500) H 07/23/16 05:02 - VTE Documentation of Mechanical Device: Graduated compression elastic hosiery Consult Discharge Plan - Plan Referrals: Con Vogt CNP [Advanced Practice Nurse] - 08/02/16 3:30 pm Aliyah Prado CNP [Primary Care Provider] - (walk in facilities.. no need for an appointment. Patient will go to rehab upon discharge)
[2016-07-27] MEDS ORDERED: *HR* Morphine 2 MG/ML SYRINGE IV PRN (12:37)
--- NOTE | 2016-07-27 12:53 | Pulmonology Progress Note ---
Date of Encounter: 07/27/16 Time of Encounter: 12:50 Assessment and Plan (1) P-ANCA and MPO antibodies positive Current Visit: Yes Status: Acute (2) Bacteremia Current Visit: Yes Status: Acute (3) Diabetes mellitus type 2, uncontrolled Current Visit: Yes Status: Chronic Qualifiers: Diabetes mellitus complication status: with neurologic complications Diabetes mellitus complication detail: with unspecified neuropathy Diabetes mellitus half-way insulin use: with local intermodal truck driver use Qualified Code(s): E11.40 - Type 2 diabetes mellitus with diabetic neuropathy, unspecified; E11.65 - Type 2 diabetes mellitus with hyperglycemia; Z79.4 - vermin exterminator (current) use of insulin (4) Diffuse pulmonary alveolar hemorrhage Current Visit: Yes Status: Acute (5) Hemoptysis Current Visit: Yes Status: Acute Subjective Principal diagnosis: hemoptysis Interval history: Called back to see patient regarding recurrent hemoptysis. Patient states that she had initially noted significant hot hemoptysis upon admission, however with treatment (steroids) this had turned to darker clotted blood and eventually resolved. Over the past few days she had been coughing up more dark blood, and then this morning she again coughed up bright red blood. No fevers or chills. She continued to have right lower extremity pain. Complete review of systems otherwise negative. Objective PUL Vital signs: Last Vital Signs Temp 97.8 F 07/27/16 11:01 Pulse 84 07/27/16 11:01 Resp 12 07/27/16 11:01 BP 162/90 07/27/16 11:01 Pulse Ox 92 07/27/16 11:01 General: no acute distress, but she is uncomfortable appearing Eyes: nonicteric ENT: oropharynx moist Neck: supple, no lymphadenopathy Lungs: Clear to auscultation bilaterally Cardiovascular: irregular Gastrointestinal: normoactive bowel sounds, soft, non-tender, non-distended Integumentary: Dark raised nodules noted on the fingers and dorsal aspect of bilateral hands Extremities: Right lower extremity is edematous with fasciotomy incisions stapled, dry, intact. Drain in place. Musculoskeletal: no deformities Neuro: normal mental status, non-focal exam Psych: mood appropriate, affect normal Results - Laboratory Findings CBC and BMP: 07/27/16 05:09 07/27/16 05:09 PT/INR, D-dimer PT 10.1 Seconds (9.4-12.1) 07/23/16 05:02 D-Dimer 6124 ng/mLFEU (0-500) H 07/23/16 05:02 Abnormal lab findings: Abnormal lab results WBC 17.4 K/mcL (4.3-11.1) H 07/27/16 05:09 RBC 2.94 M/mcL (3.82-4.97) L 07/27/16 05:09 Hgb 8.4 g/dL (11.5-15.4) L 07/27/16 05:09 Hct 26.1 % (35.3-44.9) L 07/27/16 05:09 RDW 19.6 % (11.5-14.5) H 07/27/16 05:09 Plt Count 108 K/mcL (140-400) L 07/27/16 05:09 Neutrophils # 13.5 K/mcL (1.6-8.9) H 07/27/16 05:09 Nucleated RBCs/100 WBC 0.3 /100 WBC (0) H 07/27/16 05:09 Hypersegmented Neuts Present (Not Present) A 07/23/16 05:02 Polychromasia 1+ (Not Present) A 07/24/16 05:04 Poikilocytosis 1+ (Not Present) A 07/14/16 04:24 Anisocytosis 1+ (Not Present) A 07/24/16 05:04 Microcytosis Present (Not Present) A 07/17/16 04:05 Stomatocytes 1+ (Not Present) A 07/14/16 04:24 ESR 37 mm/hr (0-15) H 07/23/16 16:09 APTT 17.6 Seconds (26.0-36.0) L 07/23/16 05:02 D-Dimer 6124 ng/mLFEU (0-500) H 07/23/16 05:02 Potassium 4.6 mEq/L (3.5-4.5) H 07/27/16 05:09 BUN 34 mg/dL (7-20) H 07/27/16 05:09 Est GFR (Non-Af Amer) 54 (> 60) L 07/27/16 05:09 BUN/Creatinine Ratio 33 (6-26) H 07/27/16 05:09 Glucose 154 mg/dL (70-99) H 07/27/16 05:09 POC Glucose 165 (58-89) H 07/27/16 07:59 Hemoglobin A1c 7.6 % (-5.6) H 07/11/16 12:05 Calculated Osmolality 303 (280-300) H 07/27/16 05:09 Direct Bilirubin 0.7 mg/dL (0.0-0.5) H 07/24/16 05:04 Troponin I 0.18 ng/mL (0-0.03) H* 07/12/16 01:06 C-Reactive Protein 213 mg/L (Less than 5) H 07/23/16 16:09 Serum Total Protein 5.7 g/dL (6.0-8.3) L 07/24/16 05:04 Albumin 2.2 g/dL (3.5-5.0) L 07/24/16 05:04 Albumin/Globulin Ratio 0.6 (1.1-2.2) L 07/24/16 05:04 Folate 4.0 ng/mL (7.0-31.4) L 07/26/16 08:07 TSH 0.072 mcIU/mL (0.350-4.840) L 07/15/16 02:58 PTH Intact 158.3 pg/ml (8.5-72.5) H 07/15/16 02:58 Urine Clarity Cloudy (Clear) A 07/13/16 21:00 Urine Protein 100 mg/dL (Neg-Trace) H 07/13/16 21:00 Urine Glucose (UA) >=1000 mg/dL (Normal) H 07/13/16 21:00 Urine Blood Moderate (Negative) H 07/13/16 21:00 Urine Microscopic WBC 3-5 per hpf (0-3) H 07/13/16 21:00 Ur Squamous Epith Cells Many per lpf (None-Few) H 07/13/16 21:00 Microalb/Creat Ratio 405 (0-30) H 07/13/16 21:00 Protein/Creatinin Ratio 1.12 mg/mg (0-0.20) H 07/13/16 21:00 Urine Total Protein 66 mg/dL (1-14) H 07/13/16 21:00 Fluid Appearance Cloudy (Clear) A 07/11/16 16:47 Vancomycin Trough 9.8 mcg/mL (10-20) L 07/13/16 10:43 CORINNE Screen DETECTED (None Detected) A 07/11/16 17:44 CORINNE Titer 1:1280 (<1:40) H 07/11/16 17:44 Myeloperoxidase Ab 44 AU/mL (0-19) H 07/11/16 17:44 ANCA IgG 1:5120 (<1:20) H 07/13/16 14:17 SS-A Ro 60 kDa Ab 71 AU/mL (0-40) H 07/13/16 16:45 Histone IgG Antibody 2.5 Units (0.0-0.9) H 07/19/16 07:48 Enterobacteriac sp PCR DETECTED (Not Detect) A 07/24/16 08:29 E. coli (PCR) DETECTED (Not Detect) A 07/24/16 08:29 - Microbiology Findings Microbiology Findings: Microbiology, Last 48 Hours 07/24/16 00:36 Anaerobic Culture - Preliminary Right Leg At this time, no anaerobic growth is present. The culture will be finalized after 5 days of incubation. 07/24/16 00:34 Anaerobic Culture - Preliminary Right Leg At this time, no anaerobic growth is present. The culture will be finalized after 5 days of incubation. 07/24/16 00:42 Anaerobic Culture - Preliminary Right Leg At this time, no anaerobic growth is present. The culture will be finalized after 5 days of incubation. 07/19/16 12:24 Blood Culture - Final Peripheral Venipuncture Vanc. Resistant Enterococcus 07/24/16 00:34 Wound Culture - Final Right Leg Escherichia coli 07/24/16 08:38 Blood Culture - Final Peripheral Venipuncture Escherichia coli 07/23/16 17:16 Blood Culture - Final Peripheral Venipuncture Escherichia coli 07/24/16 08:29 Blood Culture - Final Peripheral Venipuncture Escherichia coli 07/23/16 17:20 Blood Culture - Final Peripheral Venipuncture Escherichia coli 07/23/16 21:20 Surgical Biopsy Culture - Final Right Leg Escherichia coli 07/24/16 00:34 Wound Culture - Final Right Leg Escherichia coli - Clinical Findings Intake & Output: Intake & Output 07/26/16 07/27/16 07/27/16 23:59 07:59 15:59 Intake Total 1150 / 1150 200 / 200 160 / 160 Output Total 600 / 600 Balance 1130 / 1130 -400 / -400 140 / 140 Weight 196 kg - VTE Documentation of Mechanical Device: Graduated compression elastic hosiery Consult Discharge Plan - Plan Referrals: Con Vogt, DYE MACHINE OPERATOR [Advanced Practice Nurse] - 08/02/16 3:30 pm Aliyah Prado, DYE MACHINE OPERATOR [Primary Care Provider] - (walk in facilities.. no need for an appointment. Patient will go to rehab upon discharge)
[2016-07-27] MEDS: Sennosides/Docusate Sodium TABLET PO SCH ×2 (13:08→21:07)
[2016-07-27] MEDS: *HR* HYDROcodone/Acet 5/325 mg TABLET PO PRN ×2 (13:16→21:07)
--- NOTE | 2016-07-27 14:14 | Transfer Summary ---
Date of Encounter: 07/27/16 Time of Encounter: 12:55 Transfer Discharge Sum: Diag - Discharge Diagnosis (1) Anemia Status: Acute (2) Acute on chronic respiratory failure with hypoxia Status: Acute (3) Atrial fibrillation Status: Chronic (4) Bacteremia Status: Acute (5) Compartment syndrome Status: Acute (6) Diabetes mellitus type 2, uncontrolled Status: Chronic (7) Diffuse pulmonary alveolar hemorrhage Status: Acute (8) DVT prophylaxis Status: Acute (9) Fasciitis Status: Acute (10) Rheumatoid arthritis Status: Chronic Transfer Discharge Sum: Med - Medications Active and Home Medications: Home Medications Clopidogrel [Plavix] 75 mg PO DAILY 06/10/15 [History Confirmed 07/11/16] Cyclobenzaprine [Flexeril] 10 mg PO TID 06/10/15 [History Confirmed 07/11/16] Gabapentin [Neurontin] 300 mg PO TID 06/10/15 [History Confirmed 07/11/16] Insulin ASPART [NovoLOG] 21 unit SQ TIDWM 06/10/15 [History Confirmed 07/11/16] Insulin Glargine [Lantus] 70 unit SQ HS 06/10/15 [History Confirmed 07/11/16] Isosorbide DInitrate [Isosorbide Dinitrate] 30 mg PO BID 06/10/15 [History Confirmed 07/11/16] Rosuvastatin [Crestor] 40 mg PO DAILY 06/10/15 [History Confirmed 07/11/16] amLODIPine [Norvasc] 10 mg PO DAILY 06/10/15 [History Confirmed 07/11/16] traMADol [Ultram] 50 mg PO QID 06/10/15 [History Confirmed 07/11/16] Levothyroxine Sodium [Levoxyl] 125 mcg PO DAILY 02/01/16 [History Confirmed 11/19] metFORMIN [Glucophage] 1,000 mg PO BID 02/01/16 [History Confirmed 07/11/16] BuPROPion [Wellbutrin] 100 mg PO BID 03/20/16 [History Confirmed 07/11/16] Fenofibrate 54 mg PO DAILY 03/20/16 [History Confirmed 07/11/16] Hydralazine HCl 100 mg PO BID 03/26/16 [History Confirmed 07/11/16] Omeprazole [PriLOSEC] 20 mg PO DAILY 03/26/16 [History Confirmed 07/11/16] cloNIDine HCl [CloNIDine HCl] 0.2 mg PO BID #60 tablet 03/29/16 [Rx Confirmed ] Metoprolol [Lopressor] 100 mg PO BID 07/02/16 [History Confirmed 07/11/16] Sennosides/Docusate Sodium [Senna Plus] 1 tab PO BID PRN 07/02/16 [History Confirmed 07/11/16] Ferrous Sulfate 325 mg PO BIDWM #60 tablet. 07/03/16 [Rx Confirmed 07/11/16] Losartan [Cozaar] 25 mg PO DAILY #30 tablet 07/03/16 [Rx Confirmed 07/11/16] hydroCHLOROthiazide [Hydrochlorothiazide] 25 mg PO DAILY 07/11/16 [History Confirmed 07/11/16] Active Medications Acetaminophen (Tylenol) 650 mg PO Q6HR PRN PRN Reason: Mild Pain (1-3) Stop: 01/10/17 08:34 Acetaminophen/Hydrocodone Bitart (Arley 5-325 Mg) 1 tab PO Q4HR PRN PRN Reason: Moderate Pain (4-6) Stop: 01/10/17 08:34 Last Admin: 07/27/16 13:16 Dose: 1 tab Albuterol Sulfate (Proventil Neb) 2.5 mg IH [id number] PRN; Protocol PRN Reason: Shortness Of Breath/Wheezing Stop: 01/11/17 11:10 Clonidine HCl (Catapres-Tts) 0.3 mg TD QWEEK [facility] Stop: 01/30/17 09:01 Cyclobenzaprine HCl (Flexeril) 5 mg PO BID PRN PRN Reason: Muscle Spasm Stop: 01/12/17 15:40 Dextrose/Water (Dextrose 50% (Syg)) 25 ml IVP AD PRN PRN Reason: Hypoglycemia Stop: 01/10/17 08:37 Diltiazem HCl (Cardizem Cd) 180 mg PO DAILY [facility] Stop: 01/14/17 13:16 Last Admin: 07/27/16 10:02 Dose: 180 mg Ferrous Sulfate (Ferrous Sulfate) 325 mg PO BIDWM [facility] Stop: 01/25/17 17:01 Last Admin: 07/27/16 10:02 Dose: 325 mg Folic Acid (Folic Acid) 5 mg PO DAILY [facility] Stop: 01/26/17 09:01 Last Admin: 07/27/16 10:03 Dose: 5 mg Glucagon (Glucagen) 1 mg IM ONCE PRN PRN Reason: Hypoglycemia Stop: 01/10/17 08:37 Glucose (Gluctose) 15 gm PO ONCE PRN PRN Reason: Hypoglycemia Stop: 01/10/17 08:37 Glucose (Gluctose) 30 gm PO ONCE PRN PRN Reason: Hypoglycemia Stop: 01/10/17 08:37 Hydralazine HCl (Hydralazine) 10 mg IVP Q6HR PRN PRN Reason: SBP>160 Stop: 01/24/17 10:52 Last Admin: 07/25/16 16:26 Dose: 10 mg Dextrose (Dextrose 5%) 1,000 mls @ 100 mls/hr IVC .Q10H PRN PRN Reason: HYPOGLYCEMIA Stop: 01/10/17 08:37 Cefepime HCl 2,000 mg/ (Dextrose) 100 mls @ 200 mls/hr IVPB Q12HR [facility] Stop: 01/24/17 09:27 Last Infusion: 07/27/16 06:05 Dose: Infused Metronidazole (Flagyl Premix 500 Mg/100 Ml) 500 mg in 100 mls @ 100 mls/hr IVPB Q8HR [facility] Stop: 01/25/17 16:01 Last Admin: 07/27/16 10:03 Dose: 100 mls/hr Daptomycin 540 mg/ Sodium (Chloride) 100 mls @ 200 mls/hr IVPB Q24H [facility] Stop: 01/25/17 22:01 Last Admin: 07/26/16 22:19 Dose: Not Given Insulin Detemir (Levemir) 15 unit SQ BID [facility] Stop: 01/24/17 09:01 Last Admin: 07/27/16 10:13 Dose: 15 unit Insulin Human Lispro (Humalog) 0 units SQ TIDAC [facility] PRN Reason: Protocol Stop: 01/10/17 11:31 Last Admin: 07/27/16 12:48 Dose: Not Given Insulin Human Lispro (Humalog) 0 units SQ HS [facility] PRN Reason: Protocol Stop: 01/10/17 21:01 Last Admin: 07/26/16 22:15 Dose: Not Given Insulin Human Lispro (Humalog) 14 units SQ TIDWM [facility] Stop: 01/20/17 12:01 Last Admin: 07/27/16 12:51 Dose: Not Given Isosorbide Mononitrate (Imdur) 60 mg PO DAILY [facility] Stop: 01/10/17 14:46 Last Admin: 07/27/16 10:02 Dose: 60 mg Levothyroxine Sodium (Synthroid) 125 mcg PO DAILY@0630 [facility] Stop: 01/11/17 06:31 Last Admin: 07/27/16 05:31 Dose: 125 mcg Lorazepam (Ativan) 0.5 mg PO Q8H PRN PRN Reason: Anxiety Stop: 01/13/17 15:21 Last Admin: 07/26/16 17:44 Dose: 0.5 mg Losartan Potassium (Cozaar) 50 mg PO BID [facility] PRN Reason: Protocol Stop: 01/25/17 21:01 Last Admin: 07/27/16 10:02 Dose: 50 mg Metoprolol Tartrate (Lopressor) 75 mg PO BID [facility] Stop: 01/26/17 21:01 Morphine Sulfate (Morphine Sulfate) 1 mg IV Q1H PRN PRN Reason: Pain Not Relieved by Oral Meds Stop: 01/24/17 01:19 Naloxone HCl (Narcan) 0.4 mg IVP Q2MIN PRN PRN Reason: Opioid Reversal Stop: 01/10/17 08:34 Omeprazole (Prilosec) 40 mg PO DAILY@0730 [facility] PRN Reason: Protocol Stop: 01/13/17 07:31 Last Admin: 07/27/16 10:02 Dose: 40 mg Ondansetron HCl (Zofran) 4 mg IVP Q8HR PRN PRN Reason: Nausea And Vomiting Stop: 01/10/17 08:34 Last Admin: 07/25/16 18:38 Dose: 4 mg Oxycodone/Acetaminophen (Percocet 10/325) 1 each PO Q4HR PRN PRN Reason: Severe Pain (7-10) Stop: 01/12/17 10:36 Last Admin: 07/27/16 05:32 Dose: 1 each Polyethylene Glycol (Miralax) 17 gm PO DAILY PRN PRN Reason: Constipation Stop: 01/18/17 16:16 Prednisone (Prednisone) 40 mg PO DAILY [facility] Stop: 01/26/17 09:01 Last Admin: 07/27/16 10:02 Dose: 40 mg Senna/Docusate Sodium (Senna Plus) 2 each PO BID [facility] PRN Reason: Protocol Stop: 01/26/17 12:46 Last Admin: 07/27/16 13:08 Dose: 2 each Transfer Discharge Sum: Data Procedures and tests throughout hospitalization: Pending Orders 07/11/16 08:04 Consult to Mental Tester [CONS] Routine 07/11/16 08:33 Resuscitation Status: Active [RES] Routine 07/11/16 08:34 Admit as Inpatient Routine Bed rest [RC] .CONT Cardiac Monitoring Med/Surg [RC] .CONT 07/11/16 08:35 Oxygen via nasal cannula Nasal Cannula 2 lpm 07/11/16 08:36 Hypoglycemia Treatment Orders [RC] .once 07/11/16 13:30 Oxygen via nasal cannula Nasal Cannula 2 lpm 07/11/16 15:39 EPCD [Intermittent pneumatic tania] [RC] .CONTINUOUS 07/11/16 16:47 AFB Culture, Respiratory [TB] Routine AFB Smear [TB] Routine Fungal Culture [MYC] Routine 07/13/16 14:14 Consult to Physician [CONS] Stat 07/14/16 09:21 Consult to Nephrology [CONS] Routine 07/14/16 16:02 Consult to Interventional Radiology [CONS] Routine 07/15/16 12:04 IV Invasive line management [RC] QSHIFT Consult to Invasive Line Access Team [CONS] Routine 07/19/16 09:39 Incentive Spirometry [RC] .6 TIMES PER HR WHILE AWAKE 07/19/16 12:05 Consult to Infectious Diseases [CONS] Routine 07/23/16 05:25 Assess for bleeding [RC] .PER UNIT PROTOCOL Assess neurologic status [RC] q4h Communication order [RC] .PRN Notify provider [RC] .PRN 07/23/16 12:47 Apply anti-embolic stockings [RC] .ONCE 07/23/16 18:18 Consult to Orthopedic Surgery [CONS] Routine 07/23/16 23:30 Continuous pulse oximetry [RC] .ONCE Oxygen via nasal cannula Nasal Cannula 2 lpm RT has an order or consult [RC] NOW 07/23/16 23:36 Culture,Anaerobic [RM] Routine 07/23/16 23:39 Culture,Anaerobic [RM] Routine 07/23/16 23:43 Culture,Anaerobic [RM] Routine 07/25/16 01:18 Acetaminophen [Tylenol] 650 mg PO Q6HR PRN Albuterol Neb [Proventil Neb] 2.5 mg IH [id number] PRN Cyclobenzaprine [Flexeril] 5 mg PO BID PRN D5% in Water [Dextrose 5%] 1,000 ml IVC 100 mls/hr Dextrose 50 % in Water (Syg) [Dextrose 50% (Syg)] 25 ml IVP AD PRN Dextrose Gel [Gluctose] 15 gm PO ONCE PRN Dextrose Gel [Gluctose] 30 gm PO ONCE PRN Glucagon, Human Recombinant [GlucaGen] 1 mg IM ONCE PRN HYDROcodone/Acet 5/325 mg [Arley 5-325 mg] 1 tab PO Q4HR PRN LORazepam [Ativan] 0.5 mg PO Q8H PRN Naloxone [Narcan] 0.4 mg IVP Q2MIN PRN Ondansetron [Zofran] 4 mg IVP Q8HR PRN OxyCODONE/APAP 10/325 [Percocet 10/325] 1 each PO Q4HR PRN 07/25/16 06:30 Levothyroxine [Synthroid] 125 mcg PO DAILY@62907/25/16 07:30 Insulin LISPRO [HumaLOG] See Protocol SQ TIDAC Omeprazole [PriLOSEC] 40 mg PO DAILY@72907/25/16 08:00 Insulin LISPRO [HumaLOG] 14 units SQ TIDWM 07/25/16 09:00 Diltiazem CD (24hr) [Cardizem CD] 180 mg PO DAILY Insulin DETEMIR [Levemir] 15 unit SQ BID Isosorbide MONOnitrate (24 HR) [Imdur] 60 mg PO DAILY 07/25/16 09:26 Cefepime HCl [Maxipime] 2,000 mg D5% in Water (Mini-Bag+) [Dextrose 5% ( Minibag+) 100 ML] 100 ml IVPB Q12HR 07/25/16 10:51 hydrALAZINE [HydrALAZINE] 10 mg IVP Q6HR PRN 07/25/16 21:00 Insulin LISPRO [HumaLOG] See Protocol SQ HS 07/25/16 Lunch Advanced Soft Diet Chopped Meat 07/26/16 08:07 Culture,Blood [BC] Stat 07/26/16 11:18 Signed consent on chart [RC] .ONCE Transfusion, red blood cells [RC] .ONCE 07/26/16 13:48 Consult to Dermatology [CONS] Stat 07/26/16 16:00 MetroNIDAZOLE 500 MG/100 ML [Flagyl Premix 500 MG/100 ML] 500 mg in 100 ml IVPB Q8HR 07/26/16 17:00 Ferrous Sulfate 325 mg PO BIDWM 07/26/16 21:00 Losartan [Cozaar] 50 mg PO BID 07/26/16 22:00 DAPTOmycin [Cubicin] 540 mg 0.9 % Sodium Chloride 100 ml IVPB Q24H 07/27/16 00:00 NPO at Midnight for AM testing ONCE 07/27/16 09:00 Folic Acid 5 mg PO DAILY predniSONE 40 mg PO DAILY 07/27/16 11:23 Consult to Pulmonology [CONS] Routine 07/27/16 12:35 Polyethylene Glycol 3350 [MiraLAX] 17 gm PO DAILY PRN 07/27/16 12:37 Morphine [Morphine Sulfate] 1 mg IV Q1H PRN 07/27/16 12:45 Sennosides/Docusate Sodium [Senna Plus] 2 each PO BID 07/27/16 21:00 Metoprolol [Lopressor] 75 mg PO BID 07/28/16 00:00 NPO at Midnight for AM testing ONCE 07/31/16 09:00 CloNIDine Patch [Catapres-TTS] 0.3 mg TD QWEEK - Impressions ITS Impressions Chest CT 07/11/16 08:59 IMPRESSION: 1. Extensive bilateral ground-glass density with peripheral nodular appearing airspace disease is nonspecific. Findings may reflect postinfectious/inflammatory etiology versus alveolar hemorrhage. 2. Stable left upper lobe pulmonary nodule 1.3 x 1.2 cm. Refer to Fleischner criteria follow-up. RECOMMENDATIONS: Fleischner Society guidelines for follow-up and management of incidentally detected pulmonary nodules: Single Solid Nodule: Nodule size less than 6 mm In a low-risk patient, no routine follow-up. In a high-risk patient, optional CT at 12 months. Nodule size equals 6-8 mm In a low-risk patient, CT at 6-12 months, then consider CT at 18-24 months. In a high-risk patient, CT at 6-12 months, then CT at 18-24 months. Nodule size greater than 8 mm In a low-risk patient, consider CT, PET/CT, or tissue sampling at 3 months. In a high-risk patient, consider CT, PET/CT, or tissue sampling at 3 months. Multiple Solid Nodules: Nodule size less than 6 mm In a low-risk patient, no routine follow-up. In a high-risk patient, optional CT at 12 months. Nodule size equals 6-8 mm In a low-risk patient, CT at 3-6 months, then consider CT at 18-24 months. In a high-risk patient, CT at 3-6 months, then CT at 18-24 months. Nodule size greater than 8 mm In a low-risk patient, CT at 3-6 months, then consider CT at 18-24 months. In a high-risk patient, CT at 3-6 months, then CT at 18-24 months. - Low risk patients include individuals with minimal or absent history of smoking and other known risk factors. - High risk patients include individuals with a history or smoking or known risk factors. Radiology 2017 http://pubs.rsna.org/doi/full/10.1148/radiol.[email or web address] D/ / 07/11/2016 10:20:39 Abraham Islas MD / tomi Interpreting Provider: Abraham Islas MD Renal Biopsy CT 07/17/16 00:00 IMPRESSION: Successful CT guided core biopsy of the right kidney. D/ / Jakob Kurtz MD / Jakob Kurtz MD Interpreting Provider: Jakob Kurtz MD Chest X-Ray 07/20/16 08:23 IMPRESSION: Persistent but improving multifocal bilateral airspace opacities most suggestive of an atypical infectious process. D/ / 07/20/2016 14:48:46 Kenneth Hill MD / edgar Interpreting Provider: Kenneth Hill MD Lower Extremity CT 07/23/16 09:58 IMPRESSION: 1. No CT scan evidence of deep venous thrombosis involving the right leg. If symptoms persist, duplex venous ultrasound should be considered for further evaluation. 2. Diffuse subcutaneous edema about the right leg is nonspecific and may be related to vascular congestion, contusion, infection or inflammation. 3. No acute osseous abnormality. D/ / Solis Porter MD / Solis Porter MD Interpreting Provider: Solis Porter MD Lower Extremity CT 07/23/16 16:00 IMPRESSION: 1. Redemonstration of diffuse subcutaneous fat stranding in the right lower extremity unchanged from the previous study. The differential includes bland lymphedema versus cellulitis. No convincing evidence of infectious or necrotizing fasciitis. MRI would be more sensitive if clinically indicated. 2. No acute osseous abnormality. D/ / Mc Mcdowell MD / Mc Mcdowell MD Interpreting Provider: Mc Mcdowell MD Chest X-Ray 07/27/16 12:33 IMPRESSION: 1. No significant interval change with persistent multi lobar airspace opacities in a pattern suggestive of pneumonia. Given the clinical history of hemoptysis, pulmonary hemorrhage can have a similar appearance. D/ / Kevin Blas MD / Kevin Blas MD Interpreting Provider: Kevin Blas MD Transfer Discharge Sum: Prov Date of admission: 07/11/16 08:33 Primary care physician: Aliyah Prado CNP Consults: 07/11/16 08:04 Consult to Mental Tester [CONS] Routine Reason for SW Consult: has [facility] oxygen Has had a fall at home last week, and prior times before that. 07/11/16 10:11 Consult to Cardiology [CONS] Stat Comment: Consulting Provider: Cardiology [place] Reason for Consult: Afib with RVR, kindly evaluate, thank you. Call Completed: No 07/11/16 10:12 Consult to Pulmonology [CONS] Stat Consulting Provider: [facility] [place] Reason for Consult: Hemoptysis, Chest CT with possible infectuous/ inflammatory/alvelar hge. Sepsis on management for HCAP. Call Completed: Yes 07/11/16 14:24 Consult to Critical Care [CONS] Stat Consulting Provider: [facility] [place] Reason for Consult: Suspected alvelar hge, acute on chronic resp failure, sepsis, multifocal pna Call Completed: Yes 07/13/16 14:14 Consult to Physician [CONS] Stat Consulting Provider: Amrit Cai Reason for Consult: vasculitis? Time Notified: 14:16 Call Completed: Yes 07/14/16 09:21 Consult to Nephrology [CONS] Routine Consulting Provider: Baltazar Navarro Reason for Consult: autoimmune vasculitis, renal involvement Call Completed: Yes 07/14/16 09:25 Consult to Cardiology [CONS] Routine Comment: Consulting Provider: Cardiology [facility] Reason for Consult: reevaluation a fib rvr on cdz drip Call Completed: No 07/14/16 16:02 Consult to Interventional Radiology [CONS] Routine Consulting Provider: Radiology [facility] Reason for Consult: Please evaluate for renal biopsy on Sunday AM. Concern for glomerulonephritis/vasculitis. Thank you Call Completed: Yes 07/15/16 12:04 Consult to Invasive Line Access Team [CONS] Routine Reason for Consult: Limited access Line Type: EPIV 07/19/16 12:05 Consult to Infectious Diseases [CONS] Routine Consulting Provider: Infectious [facility] [place] Reason for Consult: pos blood cx Time Notified: 12:05 Call Completed: Yes 07/23/16 18:18 Consult to Orthopedic Surgery [CONS] Routine Consulting Provider: [facility] Reason for Consult: possible compartment snd Call Completed: Yes 07/26/16 13:48 Consult to Dermatology [CONS] Stat Consulting Provider: Dermatology [facility] Reason for Consult: bilateral hand lesions Call Completed: Yes 07/27/16 11:23 Consult to Pulmonology [CONS] Routine Consulting Provider: [facility] Reason for Consult: Concern for redevelopment of bright red hemoptysis Call Completed: Yes Attending physician on discharge: Lesley Murillo Discharging clinician: Lesley Murillo Anticipated date of transfer: 07/27/16 Receiving physician/facility: [facility] Transfer Discharge Sum: A/P - Plan Cognitive capacity at transfer: AAO x 3 Functional capacity at transfer: uses cane/walker Overall status at transfer: patient is back to baseline Disposition: Transfer Other Transfer Discharge Sum: Hosp Hospital course: Ms. Graham is a 60 year old female with past medical history of CAD status post CABG, CKD, diabetes, chronic anemia, hypothyroidism, vasculitis who was admitted for management of acute on chronic respiratory failure, sepsis secondary to pneumonia. Patient was started on IV antibiotics. She was further noted to have bacteremia with worsening respiratory status due to which pulmonology was consulted. 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 She was started on empiric steroids to which she responded appropriately. Her hospital course was further complicated by compartment syndrome of RLE requiring surgical intervention and underwent fasciotomy. She was further noted to have erythematous pustules concerning for endocarditis. She had a KEM which was negative for any valvular vegetations however reported to have aortic arch and descending aorta plaques. Pt started having recurrent hemoptysis and given her history of ANCA associated vasculitis , she will need plasma exchange due to which [facility] was consulted for transfer. Pt is in agreement with the transfer plan. Pt will be transferred to [facility] once a bed is available. - Time Spent with Patient Total time spent providing and/or coordinating transfer services: Greater than 30 minutes Transfer Discharge Sum: Exam - Constitutional Vitals: Vital Signs Temp Pulse Resp BP Pulse Ox 07/27/16 12:49 97.7 F 84 18 144/73 93 07/27/16 11:01 97.8 F 84 12 162/90 92 07/27/16 08:04 97.9 F 82 16 167/78 94 07/26/16 23:07 98.1 F 82 16 167/68 92 07/26/16 19:02 97.7 F 80 16 147/74 92 07/26/16 17:30 98.3 F 93 16 157/61 90 07/26/16 15:10 97.8 F 84 18 134/68 91 07/26/16 14:50 96.6 F L 98 12 144/73 90 07/26/16 14:42 97.8 F 84 12 134/68 Intake and Output 07/26/16 07/27/16 07/27/16 23:59 07:59 15:59 Intake Total 1150 / 1150 200 / 200 160 / 160 Output Total 20 / 20 600 / 600 20 / 20 Balance 1130 / 1130 -400 / -400 140 / 140 Intake: IV Fluids 200 / 200 200 / 200 160 / 160 0.9 % Sodium Chloride 500 160 / 160 ML @ 150 mls/hr IVC . Q3H20M [facility] Rx#:[id number] Maxipime 2,000 MG In 100 / 100 100 / 100 Dextrose 5% (Minibag+) 100 ML 100 ML @ 200 mls/ hr IVPB Q12HR [facility] Rx#: [id number] Flagyl Premix 500 MG/100 100 / 100 100 / 100 ML 500 mg In 100 ml @ 100 mls/hr IVPB Q8HR [facility] Rx# :[id number] Oral 600 / 600 0 / 0 0 / 0 Blood Product 350 / 350 Rbcs Leuko Poor As-3 Ph 350 / 350 Unit [id number] Output: Urine 600 / 600 Wound Drainage 20 / 20 20 / 20 Right Lower Calf 20 / 20 20 / 20 Other: Meal Water Pitcher/Ice NPO Percent of Meal Consumed 0% Weight 196 kg Blood Glucose* 187 98 Patient Weight 07/27/16 23:59 Weight 196 kg General appearance: morbidly obese, no acute distress - Head Head exam: Present: atraumatic, normocephalic - Eye Eye exam: Present: normal appearance - Respiratory Respiratory exam: Present: CTAB. Absent: respiratory distress - Cardiovascular Cardiovascular exam: Present: RRR, +S1, +S2 - GI/Abdominal GI/Abdominal exam: Present: normal bowel sounds, soft. Absent: tenderness - Extremities Exam Additional comments: erythematous pustules on dorsal surface of right foot and bilateral knuckles s/p RLE fasciotomy-sutures and drain intact - Neurological Exam Neurological exam: Present: oriented X3 - Psychiatric Psychiatric exam: Present: normal affect, normal mood - VTE Documentation of Mechanical Device: Graduated compression elastic hosiery
--- NOTE | 2016-07-27 17:29 | Vascular/Endovas Progress Note ---
Date of Encounter: 07/27/16 Time of Encounter: 16:30 - Assessment and plan (1) Compartment syndrome Current Visit: Yes Status: Acute The patient underwent a right lower extremity 4 compartment fasciotomy due to fasciitis of an infectious etiology. Her cultures reveal E. Coli. She remains on antibiotics. She reports symptomatic improvement. Her drain was removed today. She is scheduled for transfer to [facility]. She will need her woo removed in a few weeks. We will arrange for follow-up. Qualifiers: Compartment syndrome type: non-traumatic Compartment syndrome location: lower extremity Laterality: right Qualified Code(s): M79.A21 - Nontraumatic compartment syndrome of right lower extremity (2) Infectious fasciitis Current Visit: Yes Status: Acute (3) Cellulitis of right leg Current Visit: Yes Status: Acute (4) Hyperlipidemia Current Visit: Yes Status: Chronic Qualifiers: Hyperlipidemia type: unspecified Qualified Code(s): E78.5 - Hyperlipidemia , unspecified (5) Hypertension Current Visit: Yes Status: Chronic Qualifiers: Hypertension type: essential hypertension Qualified Code(s): I10 - Essential (primary) hypertension (6) Tobacco abuse Current Visit: No Status: Chronic (7) Chronic kidney disease, stage 3 Current Visit: Yes Status: Chronic - Subjective Interval history: The patient continues to report decreased pain in her right leg. She denies chest pain or shortness of breath. Vital Signs, Last 4 Hours Temp Pulse Resp BP Pulse Ox 07/27/16 16:29 98.0 F 90 20 130/74 90 - Physical Examination General: Present: Conversant, No Apparent Distress Lungs: Present: Normal Breath Sounds Neuro: Present: Alert and responsive Vascular: Present: Pulse, normal, Surgical incisions (incisions clean, dry and intact without erythema or drainage) Abdomen: Present: Soft Skin: Present: Other (ecchymosis and blister on right forefoot unchanged) - VTE Documentation of Mechanical Device: Graduated compression elastic hosiery Results 07/27/16 05:09 07/27/16 05:09 Lab Results, Last 24 hours 07/27/16 07/27/16 05:09 05:09 WBC 17.4 H Hgb 8.4 L Hct 26.1 L Plt Count 108 L Sodium 141 Potassium 4.6 H Chloride 103 Carbon Dioxide 28 BUN 34 H Creatinine 1.04 Glucose 154 H Calcium 9.4 Magnesium 1.9 Consult Discharge Plan - Plan Referrals: Con Vogt, MOLD UNLOADER [Advanced Practice Nurse] - 08/02/16 3:30 pm Aliyah Prado, MARK [Primary Care Provider] - (walk in facilities.. no need for an appointment. Patient will go to rehab upon discharge)
[2016-07-27 19:57] VITALS: BP 144/68
[2016-07-27] MEDS: *HR* LORazepam 0.5 MG TABLET PO PRN (21:07)
[2016-07-31] MEDS ORDERED: CloNIDine Patch 0.3 MG PATCH (WEEKLY) TD SCH (09:00)
== END 2016-07-27 21:30 | disposition other institution (70) | DRG 853 ==
LOC: 2NENU → SUATTDRO 08:33 → ICNU 14:42 → 2ANU 07-12 16:27
PROVIDERS: ADMIT Internal Medicine; ATTEND Internal Medicine

== ENCOUNTER 2016-10-08 03:28 | Inpatient (IN) ==
[2016-10-08] MEDS ORDERED: 0.9 % Sodium Chloride 1,000 ML IVC ONE (03:54)
--- NOTE | 2016-10-08 04:00 | Emergency Department Note ---
Disposition Clinical Impression: Cellulitis Qualifiers: Site of cellulitis: extremity Site of cellulitis of extremity: lower extremity Laterality: right Qualified Code(s): L03.115 - Cellulitis of right lower limb Sepsis Qualifiers: Sepsis type: sepsis due to unspecified organism Qualified Code(s): A41.9 - Sepsis, unspecified organism Disposition: Admitted As Inpatient Condition: Good Fever HPI - General Chief Complaint: ED Fever Stated Complaint: sepsis Time Seen by Provider: 10/08/16 03:47 Source: patient, EMS Limitations: no limitations Nursing Notes Reviewed: Yes Vital Signs Reviewed: Yes - History of Present Illness HPI Narrative: Patient is here for evaluation of fever. Patient found to have a temperature of 102.5 at the longterm. Patient has a history of nonhealing chronic right leg wound that is followed by Dr. Song as well as Dr. lerma her. Patient states that she is on antibiotic pills and was told at one point that she had an underlying abscess. Patient has not had cough or any urinary symptoms. At this point the patient will undergo some blood work to further investigate possible infectious source as her leg wounds superficial level do not appear to be infected. - Related Data Home Medications Medication Instructions Recorded Confirmed Clopidogrel [Plavix] 75 mg PO DAILY 06/10/15 07/11/16 Cyclobenzaprine [Flexeril] 10 mg PO TID 06/10/15 07/11/16 Gabapentin [Neurontin] 300 mg PO TID 06/10/15 07/11/16 Insulin ASPART [NovoLOG] 21 unit SQ TIDWM 06/10/15 07/11/16 Insulin Glargine [Lantus] 70 unit SQ HS 06/10/15 07/11/16 Isosorbide DInitrate [Isosorbide 30 mg PO BID 06/10/15 07/11/16 Dinitrate] Rosuvastatin [Crestor] 40 mg PO DAILY 06/10/15 07/11/16 amLODIPine [Norvasc] 10 mg PO DAILY 06/10/15 07/11/16 traMADol [Ultram] 50 mg PO QID 06/10/15 07/11/16 Levothyroxine Sodium [Levoxyl] 125 mcg PO DAILY 02/01/16 07/11/16 metFORMIN [Glucophage] 1,000 mg PO BID 02/01/16 07/11/16 BuPROPion [Wellbutrin] 100 mg PO BID 03/20/16 07/11/16 Fenofibrate 54 mg PO DAILY 03/20/16 07/11/16 Hydralazine HCl 100 mg PO BID 03/26/16 07/11/16 Omeprazole [PriLOSEC] 20 mg PO DAILY 03/26/16 07/11/16 Metoprolol [Lopressor] 100 mg PO BID 07/02/16 07/11/16 Sennosides/Docusate Sodium [Senna 1 tab PO BID PRN 07/02/16 07/11/16 Plus] hydroCHLOROthiazide 25 mg PO DAILY 07/11/16 07/11/16 [Hydrochlorothiazide] Previous Rx's Medication Instructions Recorded cloNIDine HCl [CloNIDine HCl] 0.2 mg PO BID #60 tablet 03/29/16 Ferrous Sulfate 325 mg PO BIDWM #60 tablet. 07/03/16 Losartan [Cozaar] 25 mg PO DAILY #30 tablet 07/03/16 Allergies Allergy/AdvReac Type Severity Reaction Status Date / Time lisinopril Allergy Swelling Verified 07/11/16 05:00 of Lip/Tongue/Throat Penicillins [PCN] Allergy Hives Verified 03/19/16 21:38 Review of Systems: CONSTITUTIONAL: Fever, weakness No weight loss, HEENT: Eyes: No visual changes. Ears, Nose, Throat: No hearing loss, difficulty talking or unable to swallow. SKIN: Nonhealing skin wounds CARDIOVASCULAR: No chest pain, chest pressure or chest discomfort. No palpitations or edema. RESPIRATORY: No shortness of breath, cough or sputum. GASTROINTESTINAL: No anorexia, nausea, vomiting or diarrhea. No abdominal pain or blood. GENITOURINARY: No burning on urination or hematuria. NEUROLOGICAL: No headache, dizziness, syncope, paralysis, ataxia, numbness or tingling in the extremities. No change in bowel or bladder control. MUSCULOSKELETAL: No muscle pain, back pain, joint pain or stiffness. Fever PMH - Past Medical History Medical history: Reports: atrial fibrillation, COPD, coronary artery disease, diabetes, GERD, hyperlipidemia, hypertension, myocardial infarction, RA, thyroid disease, TIA Surgical history: Reports: angioplasty/stent, coronary bypass (CABG), hysterectomy, thyroidectomy Psychiatric history: Reports: no psych history [employer] history: Reports: no [employer] history - Social History Smoking Status: Former smoker Alcohol use: Reports: none Drug use: Reports: none Physical Exam General appearance: NAD, conversant Eyes: anicteric sclerae, moist conjunctivae; PERRL HENT: Atraumatic; oropharynx clear with moist mucous membranes and no mucosal ulcerations Neck: Normal inspection; Trachea midline; FROM, supple Lungs: CTA, with normal respiratory effort and no intercostal retractions CV: Atrial fibrillation Abdomen: Soft, non-tender; no rebound or gaurding Extremities: No peripheral edema or extremity lymphadenopathy Skin: Nonhealing ulcers to the right lower extremity Psych: Appropriate mood and affect Neuro: alert and oriented to person, place and time - General Limitations: no limitations General appearance: alert, in no apparent distress Course - Reevaluation(s) Reevaluation #1: Patient's workup reveals a depressed white count as this is a new finding since the end of last September. The patient's fever was found to be 102. Patient meets surgical criteria. Lactate is normal. Patient will be writing for further evaluation of blood cultures and antibiotics. Reevaluation #2: On evaluation of her labs I do not see an MRI that she states showed an abscess. I do see that she is on Bactrim but had recent wound cultures showing Pseudomonas. We will continue the vancomycin but will start her on Levaquin for Pseudomonas coverage. Discussed with hospitalist. - Consultations Consultation #1: Discussed with hospitalist, Dr. Monroe. Patient accepted for admission. Vital Signs Temperature 102.5 F H 10/08/16 03:34 Pulse Rate 98 10/08/16 03:34 Respiratory Rate 18 10/08/16 03:34 Blood Pressure 114/80 10/08/16 03:34 O2 Sat by Pulse Oximetry 97 10/08/16 03:34 Temperature 98.6 F 10/08/16 07:16 Pulse Rate 55 10/08/16 07:16 Respiratory Rate 18 10/08/16 07:16 Blood Pressure 144/58 10/08/16 07:16 O2 Sat by Pulse Oximetry 96 10/08/16 07:16 Oxygen Delivery Oxygen Delivery Nasal Cannula Fever - Lab Data Result diagrams: 10/08/16 04:21 10/08/16 04:21 Lab Results 10/08/16 10/08/16 10/08/16 Range/Units 04:21 04:21 04:21 WBC 2.5 L (4.3-11.1) K/mcL RBC 3.39 L (3.82-4.97) M/mcL Hgb 10.1 L (11.5-15.4) g/dL Hct 31.8 L (35.3-44.9) % MCV 93.8 (83.0-100.0) fL MCH 29.8 (28.0-33.3) pg MCHC 31.8 (31.6-35.5) g/dL RDW 16.7 H (11.5-14.5) % Plt Count 128 L (140-400) K/mcL MPV 11.0 (9.4-12.4) fL Seg Neutrophils % 70.0 % Band Neutrophils % 14.0 H (0-4) % Lymphocytes % 6.0 % Monocytes % 10.0 % Neutrophils # 2.1 (1.6-8.9) K/mcL Lymphocytes # 0.2 L (0.6-4.6) K/mcL Monocytes # 0.3 (0.0-1.3) K/mcL Platelet Estimate Slight Decrease L (Normal) PT 11.4 (9.4-12.1) Seconds INR 1.1 Sodium 133 L (136-145) mEq/L Potassium 4.1 (3.5-4.5) mEq/L Chloride 94 L (98-109) mEq/L Carbon Dioxide 29 (19-29) mEq/L BUN 41 H (7-20) mg/dL Creatinine 1.61 H (0.57-1.11) mg/dL Est GFR ( Amer) 39 L (> 60) Est GFR (Non-Af Amer) 33 L (> 60) BUN/Creatinine Ratio 25 (6-26) Glucose 113 H (70-99) mg/dL Calculated Osmolality 287 (280-300) Lactic Acid (0.5-2.2) mmol/L Calcium 10.0 (8.6-10.8) mg/dL Phosphorus 2.6 (2.3-4.7) mg/dL Magnesium 2.1 (1.6-2.6) mg/dL Total Bilirubin 0.5 (0.2-1.2) mg/dL Direct Bilirubin 0.2 (0.0-0.5) mg/dL Indirect Bilirubin 0.3 (0.0-1.2) mg/dL AST 55 H (5-34) Units/L ALT 48 (0-55) Units/L Alkaline Phosphatase 105 (38-126) Units/L Troponin I (0-0.03) ng/mL Serum Total Protein 5.9 L (6.0-8.3) g/dL Albumin 2.8 L (3.5-5.0) g/dL Globulin 3.1 (2.4-3.5) g/dL Albumin/Globulin Ratio 0.9 L (1.1-2.2) Urine Color (Yellow) Urine Clarity (Clear) Urine pH (5.0-8.0) pH Units Ur Specific [place] (1.010-1.025) Urine Protein (Neg-Trace) mg/dL Urine Glucose (UA) (Normal) mg/dL Urine Ketones (Negative) mg/dL Urine Blood (Negative) Urine Nitrite (Negative) Urine Bilirubin (Negative) Urine Urobilinogen (Normal) mg/dL Ur Leukocyte Esterase (Negative) Urine Microscopic RBC (0-3) per hpf Urine Microscopic WBC (0-3) per hpf Ur Squamous Epith Cells (None-Few) per lpf Urine Bacteria (None-Few) per hpf Hyaline Casts (None-Few) per lpf Urine Mucus (Few) Ur Culture Indicated? (NO) 10/08/16 10/08/16 10/08/16 Range/Units 04:35 04:35 04:50 WBC (4.3-11.1) K/mcL RBC (3.82-4.97) M/mcL Hgb (11.5-15.4) g/dL Hct (35.3-44.9) % MCV (83.0-100.0) fL MCH (28.0-33.3) pg MCHC (31.6-35.5) g/dL RDW (11.5-14.5) % Plt Count (140-400) K/mcL MPV (9.4-12.4) fL Seg Neutrophils % % Band Neutrophils % (0-4) % Lymphocytes % % Monocytes % % Neutrophils # (1.6-8.9) K/mcL Lymphocytes # (0.6-4.6) K/mcL Monocytes # (0.0-1.3) K/mcL Platelet Estimate (Normal) PT (9.4-12.1) Seconds INR Sodium (136-145) mEq/L Potassium (3.5-4.5) mEq/L Chloride (98-109) mEq/L Carbon Dioxide (19-29) mEq/L BUN (7-20) mg/dL Creatinine (0.57-1.11) mg/dL Est GFR ( Amer) (> 60) Est GFR (Non-Af Amer) (> 60) BUN/Creatinine Ratio (6-26) Glucose (70-99) mg/dL Calculated Osmolality (280-300) Lactic Acid 1.7 (0.5-2.2) mmol/L Calcium (8.6-10.8) mg/dL Phosphorus (2.3-4.7) mg/dL Magnesium (1.6-2.6) mg/dL Total Bilirubin (0.2-1.2) mg/dL Direct Bilirubin (0.0-0.5) mg/dL Indirect Bilirubin (0.0-1.2) mg/dL AST (5-34) Units/L ALT (0-55) Units/L Alkaline Phosphatase (38-126) Units/L Troponin I 0.03 (0-0.03) ng/mL Serum Total Protein (6.0-8.3) g/dL Albumin (3.5-5.0) g/dL Globulin (2.4-3.5) g/dL Albumin/Globulin Ratio (1.1-2.2) Urine Color Yellow (Yellow) Urine Clarity Clear (Clear) Urine pH 6.5 (5.0-8.0) pH Units Ur Specific [place] 1.013 (1.010-1.025) Urine Protein 30 H (Neg-Trace) mg/dL Urine Glucose (UA) Normal (Normal) mg/dL Urine Ketones Negative (Negative) mg/dL Urine Blood Negative (Negative) Urine Nitrite Negative (Negative) Urine Bilirubin Negative (Negative) Urine Urobilinogen Normal (Normal) mg/dL Ur Leukocyte Esterase Negative (Negative) Urine Microscopic RBC 0-3 (0-3) per hpf Urine Microscopic WBC 3-5 H (0-3) per hpf Ur Squamous Epith Cells Many H (None-Few) per lpf Urine Bacteria None Seen (None-Few) per hpf Hyaline Casts None Seen (None-Few) per lpf Urine Mucus Few (Few) Ur Culture Indicated? NO (NO) 10/08/16 Range/Units 06:07 WBC (4.3-11.1) K/mcL RBC (3.82-4.97) M/mcL Hgb (11.5-15.4) g/dL Hct (35.3-44.9) % MCV (83.0-100.0) fL MCH (28.0-33.3) pg MCHC (31.6-35.5) g/dL RDW (11.5-14.5) % Plt Count (140-400) K/mcL MPV (9.4-12.4) fL Seg Neutrophils % % Band Neutrophils % (0-4) % Lymphocytes % % Monocytes % % Neutrophils # (1.6-8.9) K/mcL Lymphocytes # (0.6-4.6) K/mcL Monocytes # (0.0-1.3) K/mcL Platelet Estimate (Normal) PT (9.4-12.1) Seconds INR Sodium (136-145) mEq/L Potassium (3.5-4.5) mEq/L Chloride (98-109) mEq/L Carbon Dioxide (19-29) mEq/L BUN (7-20) mg/dL Creatinine (0.57-1.11) mg/dL Est GFR ( Amer) (> 60) Est GFR (Non-Af Amer) (> 60) BUN/Creatinine Ratio (6-26) Glucose (70-99) mg/dL Calculated Osmolality (280-300) Lactic Acid 1.3 (0.5-2.2) mmol/L Calcium (8.6-10.8) mg/dL Phosphorus (2.3-4.7) mg/dL Magnesium (1.6-2.6) mg/dL Total Bilirubin (0.2-1.2) mg/dL Direct Bilirubin (0.0-0.5) mg/dL Indirect Bilirubin (0.0-1.2) mg/dL AST (5-34) Units/L ALT (0-55) Units/L Alkaline Phosphatase (38-126) Units/L Troponin I (0-0.03) ng/mL Serum Total Protein (6.0-8.3) g/dL Albumin (3.5-5.0) g/dL Globulin (2.4-3.5) g/dL Albumin/Globulin Ratio (1.1-2.2) Urine Color (Yellow) Urine Clarity (Clear) Urine pH (5.0-8.0) pH Units Ur Specific [place] (1.010-1.025) Urine Protein (Neg-Trace) mg/dL Urine Glucose (UA) (Normal) mg/dL Urine Ketones (Negative) mg/dL Urine Blood (Negative) Urine Nitrite (Negative) Urine Bilirubin (Negative) Urine Urobilinogen (Normal) mg/dL Ur Leukocyte Esterase (Negative) Urine Microscopic RBC (0-3) per hpf Urine Microscopic WBC (0-3) per hpf Ur Squamous Epith Cells (None-Few) per lpf Urine Bacteria (None-Few) per hpf Hyaline Casts (None-Few) per lpf Urine Mucus (Few) Ur Culture Indicated? (NO) - EKG Data EKG attestation: Yes I reviewed and interpreted this EKG. EKG results narrative: EKG shows atrial fibrillation with RVR at a rate of 119. Mild ST changes in the lateral leads that are consistent with previous EKG of 07/11/16. Rate: tachycardia Rhythm: A.Fib Attestation Statement - Attestation Attestation: I, Merlin Schmitt MD, personally evaluated this patient and discussed their management with the resident physician. I reviewed the resident's note and agree with the documented findings, medical decision making, and plan of care. 61-year-old female presents to the emergency department from a local longterm for evaluation of fever. She has had chills and temperature tonight up to 102.5 on arrival here. No cough or chest pain or shortness of breath. No dysuria or flank pain. Patient has some chronic ulcerations of her right lower extremity and feels this is the source of her fever. She states that she had an ultrasound and they told her there was a deep abscess in the area. On examination patient is a well-developed obese female in no acute distress. She is alert and oriented 3. There is no cyanosis or diaphoresis. Sounds are clear and equal bilaterally. Heart regular rate and rhythm. Abdomen soft and nontender with normal bowel sounds. There are 2 open wounds on the right lower extremity which do not appear grossly infected. Wound margins are clean with no surrounding erythema. Labs reviewed. Neutropenia noted. Chest x-ray negative. The hospitalist, Dr. Monroe, was consulted and accepted admission of the patient.
[2016-10-08 04:28] LABS: Hematocrit 31.8 % (35.3-44.9); Hemoglobin 10.1 g/dL (11.5-15.4); Mean Corpuscular HGB Conc 31.8 g/dL (31.6-35.5); Mean Corpuscular Hemoglobin 29.8 pg (28.0-33.3); Mean Corpuscular Volume 93.8 fL (83.0-100.0); Platelet Count 128 K/mcL (140-400); Red Blood Count 3.39 M/mcL (3.82-4.97); Red Cell Distribution Width 16.7 % (11.5-14.5)
[2016-10-08 04:38] LABS: INR 1.1; Prothrombin Time 11.4 Seconds (9.4-12.1)
[2016-10-08 04:44] LABS: Albumin 2.8 g/dL (3.5-5.0); Albumin/Globulin Ratio 0.9 (1.1-2.2); Bilirubin,Direct 0.2 mg/dL (0.0-0.5); Bilirubin,Indirect 0.3 mg/dL (0.0-1.2); Bilirubin,Total 0.5 mg/dL (0.2-1.2); Globulin 3.1 g/dL (2.4-3.5); Magnesium 2.1 mg/dL (1.6-2.6); Phosphorous 2.6 mg/dL (2.3-4.7); Potassium 4.1 mEq/L (3.5-4.5); Total Protein 5.9 g/dL (6.0-8.3)
[2016-10-08 04:48] LABS: Lymphocytes # 0.2 K/mcL (0.6-4.6); Monocytes # 0.3 K/mcL (0.0-1.3); Neutrophils # 2.1 K/mcL (1.6-8.9); Platelet Estimate Slight Decrease (Normal)
[2016-10-08 05:06] LABS: Bilirubin,Urine Negative (Negative); Blood,Urine Negative (Negative); Clarity,Urine Clear (Clear); Color,Urine Yellow (Yellow); Glucose,Urine (UA) Normal (Normal); Ketones,Urine Negative (Negative); Leukocyte Esterase,Urine Negative (Negative); Nitrite,Urine Negative (Negative); PH,Urine 6.5 pH Units (5.0-8.0); Protein,Urine 30 mg/dL (Neg-Trace); Specific Gravity,Urine 1.013 (1.010-1.025); Urobilinogen,Urine Normal (Normal)
[2016-10-08 05:08] LABS: Bacteria,Urine None Seen per hpf (None-Few); Hyaline Casts,Urine None Seen per lpf (None-Few); RBC,Urine 0-3 per hpf (0-3); Squamous Epithelial Cell,Urine Many per lpf (None-Few)
[2016-10-08 05:21] LABS: Mucus,Urine Few (Few)
[2016-10-08] MEDS ORDERED: Vancomycin 1,000 MG in D5% in Water 250 ML IVPB ONE (06:16)
[2016-10-08] MEDS ORDERED: Levofloxacin 750 MG/150 ML 750 MG/150 ML BAG IVPB ONE (06:29)
[2016-10-08] MEDS ORDERED: Naloxone 0.4 MG/ML INJ IVP PRN (09:41)
[2016-10-08] MEDS ORDERED: Acetaminophen 325 MG TABLET PO PRN ×2 (09:41→22:49)
[2016-10-08] MEDS ORDERED: Dextrose Gel 15 GM PO PRN ×2 (09:48)
[2016-10-08] MEDS ORDERED: D5% in Water 1,000 ML IVC PRN (09:48)
[2016-10-08] MEDS ORDERED: *HR* Dextrose 50 % in Water (Syg) 50 ML SYRINGE IVP PRN (09:48)
[2016-10-08] MEDS: Insulin LISPRO 300 UNITS/3 ML VIAL SQ SCH ×3 (11:31→21:26)
[2016-10-08] MEDS: Pantoprazole 40 MG VIAL IVP SCH (11:38)
[2016-10-08] MEDS: *HR* HYDROcodone/Acet 5/325 mg TABLET PO PRN ×3 (11:38→21:18)
[2016-10-08] MEDS: *HR* Heparin 5,000 UNIT/ML VIAL SQ SCH ×2 (15:57→23:47)
--- NOTE | 2016-10-08 20:25 | Internal Med History&Physical ---
<Alex Amanda - Last Filed: 10/08/16 21:06> Date of Encounter: 10/08/16 Time of Encounter: 08:00 Assessment and Plan (1) Sepsis Current visit: Yes Status: Acute Patient currently meets sepsis criteria based on her WBC of 2.5, temperature of 102.5 F, and HR of 98. IV levaquin and IV vancomycin were administered in the ED and will be continued. Blood cultures x2 ordered. Timed lactic acids ordered. IV 0.9 NS 500 mL bolus and 0.9 NS 100mL/HR ordered. Follow-up labs ordered to monitor patient. Qualifiers: Sepsis type: sepsis due to unspecified organism Qualified Code(s): A41.9 - Sepsis, unspecified organism (2) Cellulitis Current visit: Yes Status: Acute Patient presents with acute cellulitis of right lower extremity. Patient has history of chronic nonhealing wounds and is currently followed by Dr. Song. IV vancomycin and IV Levaquin administered in the ED and will be continued. Blood cultures 2 ordered. Wound culture ordered. Wound care consult ordered. Daily wound care ordered. IV 0.9 NS bolus of 500 mL ordered and to be continued with IV 0.9 NS 100 mL/HR. Follow-up labs ordered. CT of the RLE w/o contrast ordered. Patient to be monitored closely. Qualifiers: Site of cellulitis: extremity Site of cellulitis of extremity: lower extremity Laterality: right Qualified Code(s): L03.115 - Cellulitis of right lower limb (3) Hyponatremia Current visit: Yes Status: Acute Patient presents with acute hyponatremia based on sodium level of 133. IV 0.9 NS ordered for sepsis criteria which will help to increase sodium level. Follow- up labs ordered to monitor. (4) GERD (gastroesophageal reflux disease) Current visit: Yes Status: Chronic Patient presents with history of chronic GERD. IVP protonix 40 mg daily ordered. Qualifiers: Esophagitis presence: esophagitis presence not specified Qualified Code(s) : K21.9 - Gastro-esophageal reflux disease without esophagitis (5) Atrial fibrillation with RVR Current visit: Yes Status: Chronic Patient presents with history of chronic atrial fibrillation with RVR. Patient placed on continuous cardiac telemetry and monitored closely. Repeat EKG ordered. (6) Chronic kidney disease, stage 3 Current visit: Yes Status: Chronic Patient presents with history of chronic kidney disease, stage III. Patient is currently septic and we will use IV fluids judiciously. We will monitor patient 's I&O and daily weight. Follow-up labs ordered. (7) Diabetes mellitus type 2, uncontrolled Current visit: Yes Status: Chronic Patient presents with history of chronic diabetes type 2 uncontrolled. Blood glucose before meals at bedtime ordered. Low-dose correction sliding scale insulin and hypoglycemia protocol ordered. 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 Lipid panel ordered. Will continue patient's Crestor. Qualifiers: Hyperlipidemia type: pure hypercholesterolemia Qualified Code(s): E78.00 - Pure hypercholesterolemia, unspecified; E78.0 - Pure hypercholesterolemia (9) Hypertension Current visit: Yes Status: Chronic Patient presents with history of chronic hypertension. Will monitor patient vital signs. Continue patient's Norvasc, Lopressor, Cozaar. Qualifiers: Hypertension type: essential hypertension Qualified Code(s): I10 - Essential (primary) hypertension (10) DVT prophylaxis Current visit: Yes Status: Acute Patient to be placed on DVT prophylaxis due to current admission protocol and bed rest status. Heparin 5,000 units SQ Q8 ordered. Internal Medicine - H&P: HPI Chief complaint: Fever/Cellulitis Admitted From: Emergency Dept Plans for Post Hospital Care: Home History of present illness: Ms. Graham is a 61 year old female who presents from the ED with chief complaint of fever related to cellulitis of right lower leg. Patient's fever when taken at the halfway was 102.5 F. She has a history of non-healing leg wounds and is followed by Dr. Song. Patient reports fever and chills but denies nausea, vomiting, diarrhea, abdominal pain, dizziness, vision changes, pre-syncope, or syncope. Patient's medical history includes atrial fibrillation , COPD, CAD, diabetes, and GERD, hyperlipidemia, hypertension, [place], RA, thyroid disease, and TIA. On examination, patient's leg has discharge from wound and will be cultured. Patient currently meets sepsis criteria based on her WBC of 2.5, temperature of 102.5 F, and HR of 98. IV levaquin and IV vancomycin were administered in the ED and will be continued. Blood cultures x2 ordered. Timed lactic acids ordered. IV 0.9 NS 500 mL bolus and 0.9 NS 100mL/HR ordered. Patient is at high risk due to infection and will be placed as inpatient. Patient to be monitored closely for signs of increasing infection, cardiac, and/ or respiratory distress. Follow-up labs ordered to monitor infection. Time spent with patient > 40 minutes. Past Med Surg Social Fam HX - Past Medical History Source: patient Medical history: atrial fibrillation, COPD, coronary artery disease, diabetes, GERD, hyperlipidemia, hypertension, myocardial infarction, RA, thyroid disease, TIA Psychiatric history: no psych history - Past Surgical History Surgical History: angioplasty/stent, coronary bypass (CABG), hysterectomy, thyroidectomy - Social History Smoking Status: Former smoker Smokeless Tobacco Status: No Alcohol use: none Drug use: none Current living situation: Assisted Living Activity Level: Independent ambulation Recent Out of Country Travel Within the Last 8 Weeks: No Exposure or Possible Exposure to Illness During Travel: No - Family History Mother Adopted: No Race: Family Member Ethnicity: Non- Living Status: Age at : 57 Cause of : [place] Hx Family Cardiac Disorders: Yes (HD, HTN, HLD, [place]) Brother Race: Family Member Ethnicity: Non- Living Status: Still Living Hx Family Cardiac Disorders: Yes (HD) Father Race: Family Member Ethnicity: Non- Living Status: Age at : 97 Hx Family Medical Disorders: No Internal Medicine - H&P: Meds Cyclobenzaprine [Flexeril] 10 mg PO TID PRN 06/10/15 [History] Insulin Glargine [Lantus] 29 unit SQ QAM 06/10/15 [History] Isosorbide DInitrate [Isosorbide Dinitrate] 60 mg PO BID 06/10/15 [History] Rosuvastatin [Crestor] 40 mg PO DAILY 06/10/15 [History] Levothyroxine Sodium [Levoxyl] 125 mcg PO DAILY 02/01/16 [History] Fenofibrate 54 mg PO QPM 03/20/16 [History] Omeprazole [PriLOSEC] 20 mg PO DAILY 03/26/16 [History] Sennosides/Docusate Sodium [Senna Plus] 1 tab PO BID PRN 07/02/16 [History] Ferrous Sulfate 325 mg PO BIDWM #60 tablet. 07/03/16 [Rx] Acetaminophen [Tylenol Arthritis] 650 mg PO Q4HR PRN 10/08/16 [History] Aspirin 81 mg PO DAILY 10/08/16 [History] Calcium Carbonate/Vitamin D3 [Calcium 600-Vit D3 200 Tablet] 1 tab PO DAILY 08/19 [History] Carvedilol [Coreg] 25 mg PO BID 10/08/16 [History] Cholecalciferol (Vitamin D3) [Vitamin D3] 1,000 unit PO DAILY 10/08/16 [History] Diltiazem CD (24hr) [Cardizem CD] 240 mg PO DAILY 10/08/16 [History] FLUoxetine HCl [PROzac] 20 mg PO DAILY 10/08/16 [History] Folic Acid 1 mg PO DAILY 10/08/16 [History] Furosemide [Lasix] 40 mg PO BID 10/08/16 [History] HYDROcodone/Acet 10/325 mg [[place] 10-325 mg] 1 tab PO Q6HR PRN 10/08/16 [History ] HumaLOG See Protocol 10/08/16 [History] HumuLIN N 30 units SQ QAM 10/08/16 [History] Insulin Glargine,Hum.rec.anlog [Lantus Solostar] 35 unit SQ QPM 10/08/16 [ History] Ipratropium/Albuterol Neb [Duoneb] 3 ml IH Q6HR PRN 10/08/16 [History] Losartan [Cozaar] 25 mg PO BID 10/08/16 [History] Mupirocin [Bactroban Oint] 1 appl TP BID 10/08/16 [History] Nitroglycerin [Nitrostat] 0.4 mg SL AD PRN 10/08/16 [History] Polyethylene Glycol 3350 [MiraLAX] 17 gm PO DAILY PRN 10/08/16 [History] Potassium Chloride [Klor-Con 10] 10 meq PO DAILY 10/08/16 [History] Sulfamethoxazole/Trimeth DS [Bactrim DS] 1 tab PO 3XW 10/08/16 [History] hydrOXYzine pamoate [HydrOXYzine Pamoate] 25 mg PO TID PRN 10/08/16 [History] predniSONE [PredniSONE] 30 mg PO DAILY 10/08/16 [History] Allergies lisinopril Allergy (Verified 07/11/16 05:00) Swelling of Lip/Tongue/Throat Penicillins [PCN] Allergy (Verified 03/19/16 21:38) Hives All Systems PM: A 10-system review of systems was performed and is negative for pertinent findings except as documented above in the HPI. - Constitutional Constitutional: as per HPI, chills, fever(s), no night sweats - EENT Eyes: no change in vision, no discharge, no pain, no photophobia Ears: no ear discharge, no ear pain, no tinnitus Nose, mouth and throat: no dysphagia, no nasal discharge, no neck pain, no sore throat - Breasts Breasts: as per HPI - Cardiovascular Cardiovascular ROS IM: no chest pain, no diaphoresis, no dyspnea, no lightheadedness, no palpitations, no syncope - Respiratory Respiratory: no cough, no dyspnea, no wheezing, no excessive phlegm production - Gastrointestinal Gastrointestinal: no abdominal pain, no diarrhea, no hematemesis, no hematochezia, no melena, no nausea, no vomiting - Genitourinary Genitourinary: no change in urinary stream, no dysuria, no flank pain, no hematuria Menstruation: as per HPI, post hysterectomy - Musculoskeletal Musculoskeletal ROS IM: no numbness, no tingling - Integumentary Integumentary IM: as per HPI, sores (RLE) - Neurological Neurological ROS: no confusion, no convulsions, no focal weakness, no numbness, no tingling, no tremor(s) - Psychiatric Psychiatric: as per HPI - Endocrine Endocrine IM: as per HPI - Hematologic/Lymphatic Hematologic/Lymphatic: no easy bruising - Allergic/Immunologic Allergic/Immunologic: as per HPI - Constitutional Vitals: Temp Pulse Resp BP Pulse Ox 98.4 F 108 16 121/63 95 10/08/16 19:38 10/08/16 19:38 10/08/16 19:38 10/08/16 19:38 10/08/16 19:38 General appearance: Present: cooperative, A&O X 3, pleasant, no acute distress, obese, answers questions appropriately - Head Head exam: Present: atraumatic, normocephalic - Eye Eye exam: Present: PERRL, conjuntiva pink, sclera anicteric Pupils: Present: PERRL - ENT ENT exam: Present: normal exam, normal external ear exam - Neck Neck exam general surgery: Present: normal inspection, supple, trachea midline - Respiratory Respiratory exam: Present: CTAB. Absent: accessory muscle use, rales, rhonchi, wheezes - Cardiovascular Cardiovascular exam: Present: RRR, +S1, +S2. Absent: diastolic murmur, gallop, rubs, systolic murmur - GI/Abdominal GI/Abdominal exam: Present: normal bowel sounds, soft, no peritoneal signs. Absent: distended, tenderness - Rectal Rectal exam: Present: deferred - Additional comments: exam deferred. - Extremities Exam Extremities exam: Present: pedal edema (RLE), warm (RLE) - Back Exam Back exam: Present: normal inspection - Neurological Exam Neurological exam: Present: CN II-XII intact, oriented X3, no focal deficits. Absent: pronater drift, facial droop, speech deficit - Psychiatric Psychiatric exam: Present: normal affect, normal mood - Skin Skin exam: Present: dry, intact Internal Med - H&P Results - Labs CBC & Chem 7: 10/08/16 04:21 10/08/16 04:21 Labs: Cardiac Enzymes 10/08/16 10/08/16 Range/Units 12:34 17:42 Troponin I 0.04 H* 0.02 (0-0.03) ng/mL - EKG Data Prior EKG available for review: no When compared to previous EKG: there is no significant change Interpretation IM: suggestive of ischemia EKG comments: 10/08/16 20:39 EKG dated 07/11/16 shows atrial fibrillation with rapid ventricular response, ST deviation and moderate T-wave abnormality, consider lateral ischemia. EKG dated 10/08/16 shows atrial fibrillation with rapid ventricular response, ST deviation and moderate T-wave abnormality, consider lateral ischemia. - Diagnostic Studies Chest x-ray Additional comments: Impressions Chest X-Ray 10/08/16 03:58 IMPRESSION: No acute disease. D/ / Shivam Alan MD / Shivam Alan MD Interpreting Provider: Shivam Alan MD <[email or web address] Lor - Last Filed: 10/09/16 17:32> Date of Encounter: 10/09/16 Internal Medicine - H&P: HPI History of present illness: Ms. Graham is a 61 year old female All Systems PM: A 10-system review of systems was performed and is negative for pertinent findings except as documented above in the HPI. - Constitutional Vitals: Temp Pulse Resp BP Pulse Ox 97.5 F L 97 17 137/65 94 10/09/16 16:59 10/09/16 16:59 10/09/16 16:59 10/09/16 16:59 10/09/16 16:59 Internal Med - H&P Results - Labs CBC & Chem 7: 10/09/16 04:44 10/09/16 04:44 Labs: Short CBC 10/09/16 Range/Units 04:44 WBC 2.3 L (4.3-11.1) K/mcL Hgb 9.1 L (11.5-15.4) g/dL Hct 28.8 L (35.3-44.9) % Plt Count 100 L (140-400) K/mcL Neutrophils # 1.8 (1.6-8.9) K/mcL BMP 10/09/16 04:44 Sodium 132 L Potassium 3.9 Chloride 98 Carbon Dioxide 28 BUN 29 H D Creatinine 1.28 H Glucose 176 H Calcium 8.9 Cardiac Enzymes 10/08/16 Range/Units 17:42 Troponin I 0.02 (0-0.03) ng/mL - Impressions ITS Impressions Lower Extremity CT 10/08/16 20:41 IMPRESSION: 1. Small fluid collection measuring approximately 0.9 x 2.1 x 5.2 cm just deep to a soft tissue defect along the posteromedial calf. This collection appears to reside within a fascia defect of the superficial fascia of the medial head of the gastrocnemius (likely postsurgical defect). Sterility of this collection is indeterminate on imaging. Findings potentially may be postsurgical. Abscess not excluded in the appropriate clinical setting. 2. Minimal subcutaneous edema within the soft tissues of the right lower extremity which has significantly improved when compared with previous exam dated July 23, 2016. D/ / Harsha Simpson MD / Harsha Simpson MD Interpreting Provider: Harsha Simpson MD - Attending Attestation Patient was in person seen and examined. Plan discussed with nurse practitioner. Detailed examination done. Chest clear to auscultation and percussion abdomen soft nontender no organomegaly lower extremity shows cellulitis.
[2016-10-08] MEDS ORDERED: 0.9 % Sodium Chloride 500 ML IVC ONE (20:30)
[2016-10-08] MEDS ORDERED: Ipratropium/Albuterol Neb 3 ML IH PRN (21:33)
[2016-10-08] MEDS: 0.9 % Sodium Chloride 1,000 ML IVC SCH (22:15)
[2016-10-08] MEDS ORDERED: Nitroglycerin 0.4 MG TAB.SUBL SL PRN (22:51)
[2016-10-08] MEDS: Insulin DETEMIR 100 UNIT/ML X5UNITS SQ SCH (23:47)
[2016-10-09 00:28] LABS: Acinetobacter baumannii by PCR Not Detected (Not Detect); Candida albicans by PCR Not Detected (Not Detect); Candida glabrata by PCR Not Detected (Not Detect); Candida krusei by PCR Not Detected (Not Detect); Candida parapsilosis by PCR Not Detected (Not Detect); Candida tropicalis by PCR Not Detected (Not Detect); Enterococcus by PCR ***DETECTED*** (Not Detect); Escherichia coli by PCR Not Detected (Not Detect); Klebsiella oxytoca by PCR Not Detected (Not Detect); Klebsiella pneumoniae by PCR Not Detected (Not Detect); Pseudomonas aeruginosa by PCR Not Detected (Not Detect); Serratia marcescens by PCR Not Detected (Not Detect); Staphylococcus aureus by PCR Not Detected (Not Detect); Streptococcus agalactiae(B)PCR Not Detected (Not Detect); Streptococcus by PCR Not Detected (Not Detect); Streptococcus pneumoniae PCR Not Detected (Not Detect); Streptococcus pyogenes (A) PCR Not Detected (Not Detect); vanA/B Vancomycin-Resist Genes ***DETECTED*** (Not Detect)
[2016-10-09] MEDS: *HR* Morphine 2 MG/ML SYRINGE IVP PRN ×2 (03:26→08:55)
[2016-10-09 05:51] LABS: INR 1.2; Prothrombin Time 12.5 Seconds (9.4-12.1)
[2016-10-09 05:55] LABS: Activated Partial Thrombo Time 25.2 Seconds (26.0-36.0)
[2016-10-09 05:56] LABS: Hemoglobin A1C 7.5 %
[2016-10-09 06:03] LABS: Basophils % 0.4 %; Hematocrit 28.8 % (35.3-44.9); Hemoglobin 9.1 g/dL (11.5-15.4); Immature Granulocytes % 11.4 % (0-4); Lymphocytes # 0.1 K/mcL (0.6-4.6); Lymphocytes % 5.7 %; Mean Corpuscular HGB Conc 31.6 g/dL (31.6-35.5); Mean Corpuscular Hemoglobin 29.6 pg (28.0-33.3); Mean Corpuscular Volume 93.8 fL (83.0-100.0); Mean Platelet Volume 10.6 fL (9.4-12.4); Monocytes # 0.2 K/mcL (0.0-1.3); Monocytes % 6.6 %; Nucleated Red Blood Cells 0.9 /100 WBC (0); Platelet Count 100 K/mcL (140-400); Red Blood Count 3.07 M/mcL (3.82-4.97); Red Cell Distribution Width 16.6 % (11.5-14.5); Segmented Neutrophils % 75.9 %
[2016-10-09 06:06] LABS: BUN/Creatinine Ratio 23 (6-26); Blood Urea Nitrogen 29 mg/dL (7-20); Calcium 8.9 mg/dL (8.6-10.8); Carbon Dioxide 28 mEq/L (19-29); Chloride 98 mEq/L (98-109); Chol/HDL Ratio 6.2 (0-4.9); Cholesterol 105 mg/dL (< 200); Glucose 176 mg/dL (70-99); HDL Cholesterol 17 mg/dL (40-59); Magnesium 1.7 mg/dL (1.6-2.6); Osmolality,Calculated 284 (280-300); Potassium 3.9 mEq/L (3.5-4.5); Sodium 132 mEq/L (136-145); Triglycerides 411 mg/dL (< 150); eGFR For African Americans 51 (> 60); eGFR For Non-African Americans 42 (> 60)
[2016-10-09 06:24] LABS: Neutrophils # 1.8 K/mcL (1.6-8.9)
[2016-10-09] MEDS: Ondansetron 4 MG/2 ML VIAL IVP PRN ×2 (06:33→14:04)
[2016-10-09 07:30] LABS: Platelet Estimate Slight Decrease (Normal)
[2016-10-09] MEDS ORDERED: Sennosides/Docusate Sodium TABLET PO PRN (08:16)
[2016-10-09] MEDS: Pantoprazole 40 MG VIAL IVP SCH (08:56)
[2016-10-09] MEDS: Insulin LISPRO 300 UNITS/3 ML VIAL SQ SCH ×4 (08:59→20:56)
[2016-10-09] MEDS: *HR* Heparin 5,000 UNIT/ML VIAL SQ SCH ×3 (09:00→23:55)
[2016-10-09] MEDS: predniSONE 10 MG TABLET PO SCH (09:00)
[2016-10-09] MEDS ORDERED: Furosemide 40 MG TABLET PO SCH (09:00)
[2016-10-09] MEDS: Folic Acid 1 MG TABLET PO SCH (09:00)
[2016-10-09] MEDS: Cholecalciferol (D-3) 1,000 UNIT TABLET PO SCH (09:01)
[2016-10-09] MEDS: Aspirin Enteric Coated 81 MG Tablet PO SCH (09:01)
[2016-10-09] MEDS: Diltiazem CD (24hr) 240 MG CAPSULE PO SCH (09:02)
[2016-10-09] MEDS: FLUoxetine 20 MG CAPSULE PO SCH (09:02)
[2016-10-09] MEDS: Furosemide 40 MG TABLET PO SCH ×2 (09:19→17:22)
[2016-10-09] MEDS ORDERED: DAPTOmycin 650 MG in 0.9 % Sodium Chloride 100 ML IVPB SCH (10:00)
--- NOTE | 2016-10-09 10:35 | Internal Med Progress Note ---
<Orville Pryor - Last Filed: 10/09/16 10:28> Date of Encounter: 10/09/16 Time of Encounter: 10:29 - Assessment and plan (1) Gram-positive cocci bacteremia Current Visit: Yes Status: Acute Assessment and plan: Cefepime IV started. ID consulted. (2) Gram-negative bacterial infection Current Visit: Yes Status: Acute Assessment and plan: Daptomycin started. ID consulted. (3) Cellulitis Current Visit: Yes Status: Acute Assessment and plan: R lower extremity non-healing since july. Followed by . Wound care consult pending. CT pending. Continue IVF. Podiatry consult. Qualifiers: Site of cellulitis: extremity Site of cellulitis of extremity: lower extremity Laterality: right Qualified Code(s): L03.115 - Cellulitis of right lower limb (4) Sepsis Current Visit: Yes Status: Acute Assessment and plan: Today - HR 104 WBC 2.3. zyvox D/C'ed and started on daptomycin and Cefepime. Qualifiers: Sepsis type: sepsis due to unspecified organism Qualified Code(s): A41.9 - Sepsis, unspecified organism (5) GERD (gastroesophageal reflux disease) Current Visit: Yes Status: Chronic Assessment and plan: Ct IV Protonix 40 mg Qualifiers: Esophagitis presence: esophagitis presence not specified Qualified Code(s) : K21.9 - Gastro-esophageal reflux disease without esophagitis (6) Diabetes mellitus type 2, uncontrolled Current Visit: Yes Status: Chronic Assessment and plan: continue blood glucose before meals and at bedtime. 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: with residential use Qualified Code(s): E11.40 - Type 2 diabetes mellitus with diabetic neuropathy, unspecified; E11.65 - Type 2 diabetes mellitus with hyperglycemia; Z79.4 - MCC (current) use of insulin (7) Hyperlipidemia Current Visit: Yes Status: Chronic Assessment and plan: Ct crestor Qualifiers: Hyperlipidemia type: pure hypercholesterolemia Qualified Code(s): E78.00 - Pure hypercholesterolemia, unspecified; E78.0 - Pure hypercholesterolemia (8) Hypertension Current Visit: Yes Status: Chronic Assessment and plan: ct norvasc, lopressor, cozar Qualifiers: Hypertension type: essential hypertension Qualified Code(s): I10 - Essential (primary) hypertension (9) DVT prophylaxis Current Visit: Yes Status: Acute Assessment and plan: ct heparin (10) Chronic kidney disease, stage 3 Current Visit: Yes Status: Chronic Assessment and plan: Strict I+O, and weights (11) Atrial fibrillation with RVR Current Visit: Yes Status: Chronic Assessment and plan: ct telemetry. repeat EKG pending. - Subjective Interval history: 61 yo F on day 1 admitted for Sepsis and chronic right lower leg cellulitis. Patient reports feeling much better compared to yesterday. Her only complaints today are muscle aches in her left calf and general annoyance in her right shoulder that started when she was brought in yesterday. denies n/v/c/diarrhea - Constitutional Vitals: Temp Pulse Resp BP Pulse Ox 98.7 F 104 16 112/58 92 10/09/16 07:34 10/09/16 07:34 10/09/16 07:34 10/09/16 07:34 10/09/16 07:34 General appearance: Present: cooperative, A&O X 3, pleasant, no acute distress, obese, answers questions appropriately - Head Head exam: Present: atraumatic, normocephalic - Respiratory Respiratory exam: Present: CTAB. Absent: accessory muscle use, rales, rhonchi, wheezes - Cardiovascular Cardiovascular exam: Present: irregular rhythm, +S1, +S2. Absent: diastolic murmur, gallop, systolic murmur - Expanded Upper Extremities Exam General: Present: normal inspection Shoulder exam: Present: full ROM, tenderness (mild) - Expanded Lower Extremities Exam Lower Leg exam: Present: erythema (right leg), tenderness - Neurological Exam Neurological exam: Present: alert, oriented X3 Internal Medicine: Result - Labs CBC & Chem 7: 10/09/16 04:44 10/09/16 04:44 Labs: Short CBC 10/09/16 Range/Units 04:44 WBC 2.3 L (4.3-11.1) K/mcL Hgb 9.1 L (11.5-15.4) g/dL Hct 28.8 L (35.3-44.9) % Plt Count 100 L (140-400) K/mcL Neutrophils # 1.8 (1.6-8.9) K/mcL BMP 10/09/16 04:44 Sodium 132 L Potassium 3.9 Chloride 98 Carbon Dioxide 28 BUN 29 H D Creatinine 1.28 H Glucose 176 H Calcium 8.9 Cardiac Enzymes 10/08/16 10/08/16 Range/Units 12:34 17:42 Troponin I 0.04 H* 0.02 (0-0.03) ng/mL - ABG Interpretation ABG results: PT/INR, D-dimer PT 12.5 Seconds (9.4-12.1) H 10/09/16 04:44 - Impressions Impressions Lower Extremity CT 10/08/16 20:41 IMPRESSION: 1. Small fluid collection measuring approximately 0.9 x 2.1 x 5.2 cm just deep to a soft tissue defect along the posteromedial calf. This collection appears to reside within a fascia defect of the superficial fascia of the medial head of the gastrocnemius (likely postsurgical defect). Sterility of this collection is indeterminate on imaging. Findings potentially may be postsurgical. Abscess not excluded in the appropriate clinical setting. 2. Minimal subcutaneous edema within the soft tissues of the right lower extremity which has significantly improved when compared with previous exam dated July 23, 2016. D/ / Harsha Simpson MD / Harsha Simpson MD Interpreting Provider: Harsha Simpson MD Consult Discharge Plan - Plan Referrals: Jakob Chen MD [Primary Care Provider] - (web request 10/09/2016) <Russel Cedeño - Last Filed: 10/09/16 18:09> Date of Encounter: 10/09/16 - Assessment and plan (1) Sepsis Current Visit: Yes Status: Acute Qualifiers: Sepsis type: Streptococcus, other Qualified Code(s): A40.8 - Other streptococcal sepsis (2) Cellulitis Current Visit: Yes Status: Acute Qualifiers: Site of cellulitis: extremity Site of cellulitis of extremity: lower extremity Laterality: right Qualified Code(s): L03.115 - Cellulitis of right lower limb (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 (4) Hyponatremia Current Visit: Yes Status: Acute (5) Chronic kidney disease, stage 3 Current Visit: Yes Status: Chronic (6) Diabetes mellitus type 2, uncontrolled Current Visit: Yes Status: Chronic Qualifiers: Diabetes mellitus complication status: with neurologic complications Diabetes mellitus complication detail: with unspecified neuropathy Diabetes mellitus residential insulin use: with long winder tender use Qualified Code(s): E11.40 - Type 2 diabetes mellitus with diabetic neuropathy, unspecified; E11.65 - Type 2 diabetes mellitus with hyperglycemia; Z79.4 - MCC (current) use of insulin (7) Hypothyroid Current Visit: No Status: Chronic Qualifiers: Hypothyroidism type: acquired Qualified Code(s): E03.9 - Hypothyroidism, unspecified (8) Rheumatoid arthritis Current Visit: No Status: Chronic Qualifiers: Rheumatoid arthritis location: unspecified site Rheumatoid factor presence : unspecified presence Qualified Code(s): M06.9 - Rheumatoid arthritis, unspecified - Constitutional Vitals: Temp Pulse Resp BP Pulse Ox 97.5 F L 97 17 137/65 94 10/09/16 16:59 10/09/16 16:59 10/09/16 16:59 10/09/16 16:59 10/09/16 16:59 Internal Medicine: Result - Labs CBC & Chem 7: 10/09/16 04:44 10/09/16 04:44 Labs: Short CBC 10/09/16 Range/Units 04:44 WBC 2.3 L (4.3-11.1) K/mcL Hgb 9.1 L (11.5-15.4) g/dL Hct 28.8 L (35.3-44.9) % Plt Count 100 L (140-400) K/mcL Neutrophils # 1.8 (1.6-8.9) K/mcL BMP 10/09/16 04:44 Sodium 132 L Potassium 3.9 Chloride 98 Carbon Dioxide 28 BUN 29 H D Creatinine 1.28 H Glucose 176 H Calcium 8.9 Cardiac Enzymes 10/08/16 Range/Units 17:42 Troponin I 0.02 (0-0.03) ng/mL - ABG Interpretation ABG results: PT/INR, D-dimer PT 12.5 Seconds (9.4-12.1) H 10/09/16 04:44 - Impressions Impressions Lower Extremity CT 10/08/16 20:41 IMPRESSION: 1. Small fluid collection measuring approximately 0.9 x 2.1 x 5.2 cm just deep to a soft tissue defect along the posteromedial calf. This collection appears to reside within a fascia defect of the superficial fascia of the medial head of the gastrocnemius (likely postsurgical defect). Sterility of this collection is indeterminate on imaging. Findings potentially may be postsurgical. Abscess not excluded in the appropriate clinical setting. 2. Minimal subcutaneous edema within the soft tissues of the right lower extremity which has significantly improved when compared with previous exam dated July 23, 2016. D/ / Harsha Simpson MD / Harsha Simpson MD Interpreting Provider: Harsha Simpson MD - Attending Attestation I examined this patient and my medical decision-making was reviewed with the Resident Physician on 10/09/16. I agree with the documented findings, disposition and treatment plan as described except to the extent set forth below. Ms. Graham is currently admitted for acute VRE bacteremia and issues with leg wound. She is high risk due to potential for worsening infectious status and need for multiple IV medications. Ms. Graham feels OK. Her temperature is down. Abx adjusted today. Blood cultures positive for VRE and wound cultures positive for PSDA. Appreciate ID and podiatry input regarding her care. Exam Alert. Comfortable Mucus membranes dry Heart reg Lungs clear Abd soft Dressing intact I/P 1. VRE bacteremia 2. Sepsis 3. CKD 3 Further diagnoses and plan as above.
[2016-10-09] MEDS: 0.9 % Sodium Chloride 1,000 ML IVC SCH ×2 (10:39→22:06)
[2016-10-09] MEDS: Insulin NPH 100 UNIT/ML (x5UNIT) SQ SCH (10:44)
[2016-10-09] MEDS: Cefepime HCl 2,000 MG in D5% in Water (Mini-Bag+) 100 ML IVPB SCH ×2 (10:44→22:51)
--- NOTE | 2016-10-09 11:36 | Infectious Disease Consult ---
Date of Encounter: 10/09/16 Time of Encounter: 11:18 Assessment and Plan (1) Sepsis Status: Acute Assessment and plan: The patient had three SIRS criteria on admission. Likely secondary to bacteremia. Improved. Bandemia has resolved. She was febrile overnight and continues to have some tachycardia. Blood cultures drawn 10/08/16 are positive 2/2 sets for VRE. Qualifiers: Sepsis type: sepsis due to unspecified organism Qualified Code(s): A41.9 - Sepsis, unspecified organism (2) Bacteremia Status: Acute Assessment and plan: Causative organism VRE. Source unclear: leg wounds/abscess unlikely source. Consider intra-abdominal source. 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 Uncomplicated. The patient has no indwelling hardware and no evidence of septic emboli. Blood cultures drawn 10/08/16 are positive 2/2 sets for VRE. Repeat blood cultures x [address] of the abdomen and pelvis with oral contrast. Continue daptomycin, but decrease dose to 6mg/kg. Baseline CK level checked and was normal. Check CK level weekly while on Daptomycin. Duration of treatment depends on the clinical picture. Monitor renal function and dose-adjust antibiotics. (3) Nonhealing surgical wound Status: Acute Assessment and plan: Location: Right posteriomedial lower leg. Wound culture positive for PSEA. Sensitivities pending. Clinically, does not appear infected. MRI completed at [facility] 10/05/16 shows no evidence of osteomyelitis. CT of the lower extremity completed 10/08/16 shows a small fluid collection adjacent to the posteromedial calf wound, concerning for abscess. No active drainage or purulence noted. Clinically, the wound does not appear infected and there is no evidence of surrounding cellulitis. Consult wound care team for recommendation. Continue Cefepime 2 grams IV Q12H. Will de-escalate once we have sensitivities back. Qualifiers: Encounter type: initial encounter Qualified Code(s): T81.89XA - Other complications of procedures, not elsewhere classified, initial encounter (4) Non-healing ulcer of foot Status: Acute Assessment and plan: Stage II. Location: Dorsal aspect of the right foot. Secondary to previous vasculitis lesion. Wound culture positive for PSEA. Clinically, the wound does not appear infected. MRI of the foot completed 10/05/16 at [facility] was negative for abscess or OM. Consult wound care for wound care recommendations. Continue Cefepime 2 grams IV Q12H. Will de-escalate once susceptibilities are back. Qualifiers: Laterality: right Non-pressure ulcer stage: with fat layer exposed Qualified Code(s): L97.512 - Non-pressure chronic ulcer of other part of right foot with fat layer exposed (5) Renal insufficiency Status: Resolved Assessment and plan: Chronic. Diagnosed on previous admission. Improved. Continue to trend. Dose-adjust antibiotics and avoid nephrotoxins as able. (6) Atrial fibrillation with RVR Status: Chronic Assessment and plan: Likely secondary to sepsis. Management per the primary team. (7) Pancytopenia Status: Acute Assessment and plan: Likely secondary to recent Cytoxan use, potentially worsened by sepsis. Continue to monitor closely. (8) ANCA-associated vasculitis Status: Chronic Assessment and plan: Follows with [facility]. Previously on Cytoxan, but currently on hold due to leukopenia. Consult Rheumatology for recommendations re: prednisone use given the patient' s acute illness. Continue Bactrim DS 1 tab PO 3x/week for PCP prophylaxis as previously prescribed by [facility]. May need to consider transferring the patient back to [facility] where her room service runner is. (9) Anemia Status: Acute Qualifiers: Anemia type: unspecified type Qualified Code(s): D64.9 - Anemia, unspecified (10) Coronary artery disease Status: Chronic Qualifiers: Coronary Disease-Associated Artery/Lesion type: bypass graft [place] vs. transplanted heart: [place] heart Associated angina: without angina Qualified Code(s): I25.810 - Atherosclerosis of coronary artery bypass graft(s) without angina pectoris (11) Diabetes mellitus type 2, uncontrolled Status: Chronic Qualifiers: Diabetes mellitus complication status: with neurologic complications Diabetes mellitus complication detail: with unspecified neuropathy Diabetes mellitus [facility] insulin use: with terminal make up operator use Qualified Code(s): E11.40 - Type 2 diabetes mellitus with diabetic neuropathy, unspecified; E11.65 - Type 2 diabetes mellitus with hyperglycemia; Z79.4 - FDC (current) use of insulin Infectious Disease HPI - Data of Consult Patient: known to practice within the last 3 years Consult date: 10/09/16 Requesting Physician: Russel Cedeño DO Primary Care Provider: Jakob Chen MD - Consult Narrative Reason for consult: VRE bacteremia History of present illness: Ms. Graham is a 61 year old female with past medical history of A. fib, COPD , CAD, diabetes, hyperlipidemia, hypertension, HI, rheumatoid arthritis, ANCA positive vasculitis recently on Cytoxan, and compartment syndrome status post fasciectomy in August 2016. The patient was admitted to the hospital October 08 for cellulitis and A. fib RVR. We are consulted October 09 for further evaluation and treatment recommendations regarding VRE bacteremia. The patient's a 61-year-old female with past medical history as stated above. The patient is noted to the infectious disease service as we are consult on her case back in August 2016. At that time, the patient presented with gross hemoptysis and was diagnosed with ANCA positive vasculitis. Additionally, the patient also had infectious fasciitis (causative organism E. coli) and compartment syndrome, requiring fasciotomy. She also had E. coli bacteremia, likely from her compartment syndrome, and VRE bacteremia with source unknown. She also developed a rash concerning for nodular vasculitis vs. [place] nodes from her bacteremia. KEM did show a non-mobile echodensity in the distal aortic archproximal descending aorta most consistent with a large atherosclerotic plaque. The patient was transferred to [facility] for further evaluation due to the complexity of her case. She was started on high-dose steroids, cytoxan, and Bactrim for PCP prophylaxis. Prior to admission, Cytoxan was placed on hold due to neutropenia. She recently had an MRI of the lower extremity and foot that was negative for osteomyelitis. On the day of admission, the patient states she spiked fever 102, and had chills and rigors and overall malaise. She also complains of some right shoulder pain that started on the day that she was admitted. Upon arrival to the ER, the patient was febrile with temperature 102.5 and she was tachycardic. Laboratory studies revealed a white blood cell count of 2.5 with 14% bands. Patient was also noted to become cytopenic with a platelet count of 128. A chest x-ray was completed that was negative. Based on physical exam, there is concern that the source of the patient's sepsis was the wounds to her right lower extremity. She was given a dose of Levaquin and vancomycin empirically. Blood cultures were obtained. She was admitted to the hospital for further evaluation and treatment. Since admission, the patient has undergone a right lower extremity CT without contrast that revealed a small fluid collection adjacent to the wound on the posterior medial calf concerning for abscess. Additionally, blood cultures obtained in the emergency department are +2 out of 2 sets for VRE. Currently, the patient is on IV daptomycin and IV cefepime. Overnight, patient was febrile with a MAXIMUM TEMPERATURE 100.6. CK level is normal at 8. Serum creatinine is trending down. We've been asked to evaluate and make further recommendations. CC: Russel Cedeño, DO Past Med Surg Social Fam HX - Past Medical History Attestation: Yes The following information was validated with the patient. Source: patient, old records reviewed, nursing notes reviewed Medical history: atrial fibrillation, COPD, coronary artery disease, diabetes, GERD, hyperlipidemia, hypertension, myocardial infarction, RA, thyroid disease, TIA, other (ANCA positive vasculitis) Psychiatric history: no psych history - Past Surgical History Surgical History: angioplasty/stent, coronary bypass (CABG), hysterectomy, thyroidectomy, other (fasciotomy) - Social History Smoking Status: Former smoker Smokeless Tobacco Status: No Alcohol use: none Drug use: none Occupational status: unemployed Current living situation: F Activity Level: Uses cane/walker Recent Out of Country Travel Within the Last 8 Weeks: No Exposure or Possible Exposure to Illness During Travel: No - Family History Mother Adopted: No Race: Family Member Ethnicity: Non- Living Status: Age at : 57 Cause of : HI Hx Family Cardiac Disorders: Yes (HD, HTN, HLD, HI) Hx Family Respiratory Disorders: No Hx Family Cancer: Yes (breast ca) Hx Family GI Disorders: No Hx Family Endocrine Disorder: No Hx Family Neuromuscular Disorders: No Hx Family Neurologic Disorders: No Hx Family HEENT Disorders: No Hx Family Autoimmune Disorders: No Brother Race: Family Member Ethnicity: Non- Living Status: Still Living Hx Family Cardiac Disorders: Yes (HD) Hx Family Respiratory Disorders: Yes Hx Family Cancer: Yes Hx Family GI Disorders: No Hx Family Endocrine Disorder: Yes Hx Family Neuromuscular Disorders: No Hx Family Neurologic Disorders: No Hx Family HEENT Disorders: No Hx Family Autoimmune Disorders: No Father Race: Family Member Ethnicity: Non- Living Status: Age at : 97 Hx Family Medical Disorders: No Infectious Disease-CN:Meds Cyclobenzaprine [Flexeril] 10 mg PO TID PRN 06/10/15 [History] Insulin Glargine [Lantus] 29 unit SQ QAM 06/10/15 [History] Isosorbide DInitrate [Isosorbide Dinitrate] 60 mg PO BID 06/10/15 [History] Rosuvastatin [Crestor] 40 mg PO DAILY 06/10/15 [History] Levothyroxine Sodium [Levoxyl] 125 mcg PO DAILY 02/01/16 [History] Fenofibrate 54 mg PO QPM 03/20/16 [History] Omeprazole [PriLOSEC] 20 mg PO DAILY 03/26/16 [History] Sennosides/Docusate Sodium [Senna Plus] 1 tab PO BID PRN 07/02/16 [History] Ferrous Sulfate 325 mg PO BIDWM #60 tablet. 07/03/16 [Rx] Acetaminophen [Tylenol Arthritis] 650 mg PO Q4HR PRN 10/08/16 [History] Aspirin 81 mg PO DAILY 10/08/16 [History] Calcium Carbonate/Vitamin D3 [Calcium 600-Vit D3 200 Tablet] 1 tab PO DAILY 08/19 [History] Carvedilol [Coreg] 25 mg PO BID 10/08/16 [History] Cholecalciferol (Vitamin D3) [Vitamin D3] 1,000 unit PO DAILY 10/08/16 [History] Diltiazem CD (24hr) [Cardizem CD] 240 mg PO DAILY 10/08/16 [History] FLUoxetine HCl [PROzac] 20 mg PO DAILY 10/08/16 [History] Folic Acid 1 mg PO DAILY 10/08/16 [History] Furosemide [Lasix] 40 mg PO BID 10/08/16 [History] HYDROcodone/Acet 10/325 mg [[place] 10-325 mg] 1 tab PO Q6HR PRN 10/08/16 [History ] HumaLOG See Protocol 10/08/16 [History] HumuLIN N 30 units SQ QAM 10/08/16 [History] Insulin Glargine,Hum.rec.anlog [Lantus Solostar] 35 unit SQ QPM 10/08/16 [ History] Ipratropium/Albuterol Neb [Duoneb] 3 ml IH Q6HR PRN 10/08/16 [History] Losartan [Cozaar] 25 mg PO BID 10/08/16 [History] Mupirocin [Bactroban Oint] 1 appl TP BID 10/08/16 [History] Nitroglycerin [Nitrostat] 0.4 mg SL AD PRN 10/08/16 [History] Polyethylene Glycol 3350 [MiraLAX] 17 gm PO DAILY PRN 10/08/16 [History] Potassium Chloride [Klor-Con 10] 10 meq PO DAILY 10/08/16 [History] Sulfamethoxazole/Trimeth DS [Bactrim DS] 1 tab PO 3XW 10/08/16 [History] hydrOXYzine pamoate [HydrOXYzine Pamoate] 25 mg PO TID PRN 10/08/16 [History] predniSONE [PredniSONE] 30 mg PO DAILY 10/08/16 [History] Allergies lisinopril Allergy (Verified 07/11/16 05:00) Swelling of Lip/Tongue/Throat Penicillins [PCN] Allergy (Verified 03/19/16 21:38) Hives - Constitutional Constitutional: Present: chills, fatigue, fever(s), headache(s), malaise. Absent: night sweats, weight gain, weight loss - EENT Eyes: Absent: floaters, photophobia, seeing flashes Ears: Absent: decreased hearing, ear discharge, ear pain Nose, mouth and throat: Absent: abnormal hearing, change in voice, dry mouth, nasal congestion, nasal discharge, sinus pain, sinus pressure, sore throat - Cardiovascular Cardiovascular: Present: leg ulcers. Absent: chest pain, irregular heart rhythm , lightheadedness, palpitations, pedal edema, syncope - Respiratory Respiratory: Absent: cough, dyspnea on exertion, wheezing, chest congestion - Gastrointestinal Gastrointestinal: Absent: abdominal pain, change in bowel habits, constipation, cramping, diarrhea, dyspepsia, heartburn, loose stools, melena, nausea, vomiting - Genitourinary Genitourinary: Absent: change in urinary stream, difficulty urinating, difficulty voiding, dysuria, flank pain, urinary frequency, urinary urgency Menstruation: post menopausal - Musculoskeletal Musculoskeletal: Present: back pain ( chronic). Absent: neck pain, numbness, stiffness, tingling - Integumentary Integumentary: Present: skin ulcer (Right dorsal foot, right posteriomedial calf ) - Neurological Neurological: Absent: confusion, dizziness, focal weakness, paresthesias - Psychiatric Psychiatric: Absent: anxiety, mood swings, panic attacks - Endocrine Endocrine: Present: fatigue. Absent: cold intolerance, flushing, polydipsia, polyphagia, polyuria - Hematologic/Lymphatic Hematologic/Lymphatic: Absent: easy bleeding, easy bruising, lymphadenopathy - Allergic/Immunologic Allergic/Immunologic: Absent: tongue swelling, throat swelling, itchy eyes, seasonal rhinorrhea, wheezing, lip swelling Exam - Constitutional Vitals: Temp Pulse Resp BP Pulse Ox 98.7 F 104 16 112/58 92 10/09/16 07:34 10/09/16 07:34 10/09/16 07:34 10/09/16 07:34 10/09/16 07:34 General appearance: cooperative, no acute distress, obese - Head Head exam: Present: atraumatic, normal inspection, normocephalic - Eye Eye exam: Present: EOMI, normal appearance, PERRL Pupils: Present: normal accommodation Additional comments: No subconjunctival hemorrhage noted. - ENT ENT exam: Present: mucous membranes moist - Neck Neck exam: Present: normal inspection - Respiratory Respiratory exam: Present: CTAB. Absent: rales, respiratory distress, rhonchi, wheezes - Cardiovascular Cardiovascular exam: Present: RRR, +S1, +S2 - GI/Abdominal GI/Abdominal exam: Present: distended (obese), normal bowel sounds, soft. Absent: tenderness - Extremities Exam Extremities exam: Present: pedal edema (1+ RLE), tenderness (right foot ulcer, right calf ulcer) - Expanded Lower Extremity Exam 1 - Previous fasciotomy site noted to the posteriomedial aspect of the right lower extremity. Well-healed except for 1 1/2" area in the middle of the incision that is approximately 0.5cm wide x 0.5cm deep. Serous drainage noted on old dressing. No purulence or foul odor noted. Surrounding skin non- erythematous. Tenderness noted with palpation. No fluctuance or induration noted. 2 - Stage II ulcer noted to the dorsal aspect of the right foot. Wound bed 60% slough, 40% granulation tissue. Serous drainage noted on the old dressing. No purulence or foul odor noted. No erythema or warmth noted of the surrounding tissue. - Back Exam Back exam: Present: normal inspection. Absent: paraspinal tenderness, vertebral tenderness - Neurological Exam Neurological exam: Present: alert, oriented X3, no focal deficits - Psychiatric Psychiatric exam: Present: normal affect, normal mood - Skin Skin exam: Present: dry, intact, normal color, warm Additional comments: No endocarditis stigmata noted. Infectious Disease CN: Results - Labs CBC & Chem 7: 10/10/16 04:33 10/10/16 04:33 Consult Discharge Plan - Plan Referrals: Jakob Chen MD [Primary Care Provider] - (web request 10/09/2016) - Attending Attestation I examined this patient and my medical decision-making was reviewed with the Resident Physician. I agree with the documented findings, disposition and treatment plan as described except to the extent set forth below. This is an addendum to original report dictated by Ana Wadsworth CNP, please refer to Allan rausch for full detail. Patient is a 20-year-old woman who is well-known to her service who was seen by us before when she had hemoptysis and was diagnosed with Anka-positive vasculitis and was also found to have VRE in the blood on 2 different blood cultures and had necrotizing fasciitis in the right lower extremity. Patient was treated aggressively but then transferred to [facility] because of the acuity of her medical issues. Patient at [facility] was given Cytoxan which took care of her vasculitis/hemoptysis. After that patient was given high-dose steroids she was on prednisone 30 mg.. Patient was doing well at home. On the day of admission, the patient states she spiked fever 102, and had chills and rigors and overall malaise. She also complains of some right shoulder pain that started on the day that she was admitted. Upon arrival to the ER, the patient was febrile with temperature 102.5 and she was tachycardic. Laboratory studies revealed a white blood cell count of 2.5 with 14% bands. Patient was also noted to become cytopenic with a platelet count of 128. A chest x-ray was completed that was negative. Based on physical exam, there is concern that the source of the patient's sepsis was the wounds to her right lower extremity. She was given a dose of Levaquin and vancomycin empirically. Blood cultures were obtained. She was admitted to the hospital for further evaluation and treatment. Currently patient appears comfortable. Her cultures were positive for VRE on the PCR from the blood 2 out of 2 sets. She also has the necrotizing fasciitis with slow wound healing which does not appear infected but swab culture was positive for Pseudomonas that is pansensitive. At this point will start the patient on daptomycin and try to find the source of the VRE. I am concerned for intra-abdominal process versus endocarditis versus other. Monitor weekly CK level while on daptomycin 6 mg per KG every 24 hours Well start empiric treatment for the Pseudomonas Wound care to evaluate Monitor labs and for drug toxicity
[2016-10-09] MEDS ORDERED: *HR* OxyCODONE/APAP 10/325 TABLET PO PRN (11:40)
--- NOTE | 2016-10-09 15:17 | Electrocardiograph Report ---
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
--- NOTE | 2016-10-09 17:13 | Podiatry Consult Note ---
Date of Encounter: 10/09/16 Time of Encounter: 16:00 Assessment and Plan (1) Non-healing ulcer of foot Current visit: Yes Status: Acute Assessment: Non healing ulcer of dorsal aspect of right foot No appearance of infection Moderate amount of fibrous tissue to wound bed Pallor noted to toes, concern of vascular compromise Plan: Dressing changed at bedside, adaptic and kerlex placed Orders for santyl to be placed daily 4x4 and kerlex Will consult vascular, pain and issues of non healing likely related to vascular compromise vs infection. Qualifiers: Laterality: right Non-pressure ulcer stage: with fat layer exposed Qualified Code(s): L97.512 - Non-pressure chronic ulcer of other part of right foot with fat layer exposed (2) Chronic kidney disease, stage 3 Current visit: Yes Status: Chronic (3) Nonhealing surgical wound Current visit: No Status: Acute Assessment: Non healing surgical wound to medial aspect of right leg No appearance of infection. Moderate amount of fibrous tissue There is no edema, erythema or drainage Plan: There is coolness with severe pain surrounding surgical area- concerning for vascular compromise- will consult vascular to see CT was concerning for small fluid collection to medial lateral leg, there are no visible areas concerning for underlying abscess- patient had MRI on at [facility], will obtain results Will order ABIs if able to complete in presence of non healing areas Dressing changed at bedside, adaptic, 4x4 and kerlex. Please change daily. Qualifiers: Encounter type: initial encounter Qualified Code(s): T81.89XA - Other complications of procedures, not elsewhere classified, initial encounter History of Present Illness HPI: Ms. Graham is a 61 year old female who arrived to [facility] with complaints of pain to right lower extremity. Patient states that she had compartment syndrome with a fasciotomy in july. Patient states she has 1 ulcer and the fasciotomy of her right leg which has been non healing. Patient sees in the wound care center and the last note can be found below. Patient states that about 3 days ago she started having severe pain 10/10 to her leg. Patient states she is unaware of any trauma or known issues. States it started out of no where. Patient denies any fevers chills n/v or flu like symptoms. Patient denies any hx of drug abuse or smoking. Wound 1 Status Wound 1 Care Status: Active Wound 1 Status Date: 09/20/16 - Wound Assessment 1 Wound Location Body 1: Present: Right, Medial Wound location Body Site 1: Calf Wound Type 1: Present: Non Healing Surgical Wound Bed Appearance 1: Present: Beefy Red, Yellow, Slough Percent of Wound Bed Granulated/Red: 80 Percent of Wound Bed Slough/Yellow: 30 Wound Length: 4.8 Wound Width: 1.5 Wound Depth: 0.8 Wound Square Centimeters: 7.20 Current Wound Volume: 5.8 - Wound 2 Status Wound 2 Care Status: Active Wound 2 Status Date: 09/20/16 - Wound Assessment 2 Wound Location Body 2: Right, Dorsal Wound location Body Site 2: Foot Wound Type 2: Present: Venous Ulcer Wound Bed Appearance 2: Present: Yellow, Slough Percent of Wound Bed Granulated/Red 2: 20 Percent of Wound Bed Eschar/Black 2: 0 Percent of Wound Bed Slough/Yellow 2: 80 Wound Length 2: 6 Wound Width 2: 4 Wound Depth 2: 0.3 Wound Square Centimeters 2: 24.00 Procedure Performed - Wound 1 Status Wound 1 Care Status: Active Wound 1 Status Date: 09/20/16 - Wound Location/Type 1 Wound Location Body 1: Present: Right, Medial Wound location Body Site 1: Calf Wound Type 1: Present: Non Healing Surgical - Procedure Performed 1 Pain Management: Yes Topical 4% Lidocaine - Post Procedure Measurements 1 Wound Length: 4.8 Wound Width: 1.5 Wound Depth: 0.8 Percent of Wound Bed Granulated/Red: 80 Percent of Wound Bed Slough/Yellow: 30 - Wound 2 Status Wound 2 Care Status: Active Wound 2 Status Date: 09/20/16 - Wound Location/Type 2 Wound Location Body 2: Present: Right, Dorsal Wound location Body Site 2: Foot Wound Type 2: Present: Venous Ulcer - Procedure Performed 2 Wound Sub Tissue Square Centimeters 2: 24.00 - Post Procedure Measurements 2 Wound Length 2: 6 Wound Width 2: 4 Wound Depth 2: 0.3 Wound Bed Appearance 2: Present: Yellow, Slough Percent of Wound Bed Granulated/Red 2: 20 Percent of Wound Bed Eschar/Black 2: 0 Percent of Wound Bed Slough/Yellow 2: 80 - Procedure Performed 5 Trim Hyperkeratotic Lesion 5: 0 Patient/Caregiver Education - Learning Barriers language barrier: No Translation Services Required: None Hearing Ability: Normal Vision Impairment: Yes Mobility: Ambulatory, Walker, Unsteady gait cognitive deficits: No Patient Wound Assessment - Vital Signs Temperature: 96 F Pulse Rate: 65 Respiratory Rate: 18 Blood Pressure: 84/52 O2 Sat by Pulse Oximetry: 93 - Infection Control Isolation: [place] - Pain Present Pain Present: Reports No Pain - Nutrition Assessment Number of meals per day: 3 Four Servings of Protein Daily?: No Five Servings Fruit/Veg Daily?: No 8-10 Cups of Water Daily?: Yes Does Patient Follow Prescription Diet?: Yes Objective Last Vital Signs Temp 96 F L 10/04/16 10:48 Pulse 65 10/04/16 10:48 Resp 18 10/04/16 10:48 BP 84/52 10/04/16 10:48 Pulse Ox 93 10/04/16 10:48 - Assessment and Plan (1) Ischemic ulcer of foot due to type 2 diabetes mellitus Current Visit: Yes Status: Acute Assessment: #1 we observe a ischemic ulcer of the dorsal aspect of the right foot we have been treating with Santyl successfully. We now see debridement and loosening of the fibrinous tissue to the point where he can be debrided without fear of causing compromise to what arterial supply she has to the soft tissue of the dorsal aspect of her right foot. Patient has no clinical evidence of infection of the wound/wounds of her right foot and leg no odor no purulence no necrosis no cellulitis no periwound erythema no purulence no odor. Wounds are as measured. Fortunately the medial wound of the right leg, is healing uneventfully. Plan: #1 Sharp surgical debridement of fibrinous tissue and slough of the dorsal aspect of the right foot with a pickup and scissor down to and including subcutaneous level where we see granulation tissue underlying the slough on the distal 50% of the wound remaining proximal 50% of the wound from medial to lateral to proximal is still attached. Therefore we will continue to use Santyl on a twice a day basis under moist to dry dressing. It should be applied Anjana thick after cleansing with soap and water. Continue the same for the medial leg wound. Follow-up again in 3 weeks and hopes we can continue to debride and observe formation of granulation tissue. (2) Nonhealing surgical wound Current Visit: Yes Status: Acute Qualifiers: Encounter type: initial encounter Qualified Code(s): T81.89XA - Other complications of procedures, not elsewhere classified, initial encounter Consult Discharge Plan - Plan Referrals: Lindsay Mcclain CNP [Primary Care Provider] - Past Med Surg Social Fam HX - Past Medical History Medical history: atrial fibrillation, COPD, coronary artery disease, diabetes, GERD, hyperlipidemia, hypertension, myocardial infarction, RA, thyroid disease, TIA, other (ANCA positive vasculitis) Psychiatric history: no psych history - Past Surgical History Surgical History: angioplasty/stent, coronary bypass (CABG), hysterectomy, thyroidectomy, other (fasciotomy) - Social History Smoking Status: Former smoker Smokeless Tobacco Status: No Alcohol use: none Drug use: none - Family History Mother Adopted: No Race: Family Member Ethnicity: Non- Living Status: Age at : 57 Cause of : [place] Hx Family Cardiac Disorders: Yes (HD, HTN, HLD, [place]) Hx Family Respiratory Disorders: No Hx Family Cancer: Yes (breast ca) Hx Family GI Disorders: No Hx Family Endocrine Disorder: No Hx Family Neuromuscular Disorders: No Hx Family Neurologic Disorders: No Hx Family HEENT Disorders: No Hx Family Autoimmune Disorders: No Brother Race: Family Member Ethnicity: Non- Living Status: Still Living Hx Family Cardiac Disorders: Yes (HD) Hx Family Respiratory Disorders: Yes Hx Family Cancer: Yes Hx Family GI Disorders: No Hx Family Endocrine Disorder: Yes Hx Family Neuromuscular Disorders: No Hx Family Neurologic Disorders: No Hx Family HEENT Disorders: No Hx Family Autoimmune Disorders: No Father Race: Family Member Ethnicity: Non- Living Status: Age at : 97 Hx Family Medical Disorders: No Medications and Allergies Cyclobenzaprine [Flexeril] 10 mg PO TID PRN 06/10/15 [History] Insulin Glargine [Lantus] 29 unit SQ QAM 06/10/15 [History] Isosorbide DInitrate [Isosorbide Dinitrate] 60 mg PO BID 06/10/15 [History] Rosuvastatin [Crestor] 40 mg PO DAILY 06/10/15 [History] Levothyroxine Sodium [Levoxyl] 125 mcg PO DAILY 02/01/16 [History] Fenofibrate 54 mg PO QPM 03/20/16 [History] Omeprazole [PriLOSEC] 20 mg PO DAILY 03/26/16 [History] Sennosides/Docusate Sodium [Senna Plus] 1 tab PO BID PRN 07/02/16 [History] Ferrous Sulfate 325 mg PO BIDWM #60 tablet. 07/03/16 [Rx] Acetaminophen [Tylenol Arthritis] 650 mg PO Q4HR PRN 10/08/16 [History] Aspirin 81 mg PO DAILY 10/08/16 [History] Calcium Carbonate/Vitamin D3 [Calcium 600-Vit D3 200 Tablet] 1 tab PO DAILY 08/19 [History] Carvedilol [Coreg] 25 mg PO BID 10/08/16 [History] Cholecalciferol (Vitamin D3) [Vitamin D3] 1,000 unit PO DAILY 10/08/16 [History] Diltiazem CD (24hr) [Cardizem CD] 240 mg PO DAILY 10/08/16 [History] FLUoxetine HCl [PROzac] 20 mg PO DAILY 10/08/16 [History] Folic Acid 1 mg PO DAILY 10/08/16 [History] Furosemide [Lasix] 40 mg PO BID 10/08/16 [History] HYDROcodone/Acet 10/325 mg [[place] 10-325 mg] 1 tab PO Q6HR PRN 10/08/16 [History ] HumaLOG See Protocol 10/08/16 [History] HumuLIN N 30 units SQ QAM 10/08/16 [History] Insulin Glargine,Hum.rec.anlog [Lantus Solostar] 35 unit SQ QPM 10/08/16 [ History] Ipratropium/Albuterol Neb [Duoneb] 3 ml IH Q6HR PRN 10/08/16 [History] Losartan [Cozaar] 25 mg PO BID 10/08/16 [History] Mupirocin [Bactroban Oint] 1 appl TP BID 10/08/16 [History] Nitroglycerin [Nitrostat] 0.4 mg SL AD PRN 10/08/16 [History] Polyethylene Glycol 3350 [MiraLAX] 17 gm PO DAILY PRN 10/08/16 [History] Potassium Chloride [Klor-Con 10] 10 meq PO DAILY 10/08/16 [History] Sulfamethoxazole/Trimeth DS [Bactrim DS] 1 tab PO 3XW 10/08/16 [History] hydrOXYzine pamoate [HydrOXYzine Pamoate] 25 mg PO TID PRN 10/08/16 [History] predniSONE [PredniSONE] 30 mg PO DAILY 10/08/16 [History] Allergies lisinopril Allergy (Verified 07/11/16 05:00) Swelling of Lip/Tongue/Throat Penicillins [PCN] Allergy (Verified 03/19/16 21:38) Hives All Systems Reviewed: A 10-system review of systems was performed and is negative for pertinent findings except as documented above in the HPI. Physical Exam - Constitutional Vitals: Temp Pulse Resp BP Pulse Ox 97.5 F L 97 17 137/65 94 10/09/16 16:59 10/09/16 16:59 10/09/16 16:59 10/09/16 16:59 10/09/16 16:59 General appearance: cooperative, no acute distress, obese Exam: General Examination: CONSTITUTIONAL: Alert, oriented, in no acute distress, non-toxic. EXTREMITIES: Pallor noted to toes of right foot. Edema +1 and pedal pulses non palpable SKIN: Skin with decreased turgor, decreased subcutaneous tissue, skin thin and shiny with trophic changes associated with comorbidities as described in history.. NEUROLOGIC: Minimal sensation to light touch but severe pain is reported to medial aspect of right leg surroundings surgical site Dorsal foot wound: non healing, ischemic arterial ulcer- 3frc6wgt0.3cm bearing 60% fibrous tissue and 40%granulation tissue. There is slight erythema to the dwain wound. Mild edema. No drainage. No odor. No streaking. Medial right leg non healing surgical wound noted with 4.5cmx1.5cmx0.6cm non healing center There is no appearance of infection to either wound Minimal erythema, edema, warmth There is concern of vascular compromise to these areas Results - Labs Result Diagrams: 10/09/16 04:44 10/09/16 04:44 Labs: Abnormal lab results WBC 2.3 K/mcL (4.3-11.1) L 10/09/16 04:44 RBC 3.07 M/mcL (3.82-4.97) L 10/09/16 04:44 Hgb 9.1 g/dL (11.5-15.4) L 10/09/16 04:44 Hct 28.8 % (35.3-44.9) L 10/09/16 04:44 RDW 16.6 % (11.5-14.5) H 10/09/16 04:44 Plt Count 100 K/mcL (140-400) L 10/09/16 04:44 Immature Gran % 11.4 % (0-4) H 10/09/16 04:44 Band Neutrophils % 14.0 % (0-4) H 10/08/16 04:21 Lymphocytes # 0.1 K/mcL (0.6-4.6) L 10/09/16 04:44 Nucleated RBCs/100 WBC 0.9 /100 WBC (0) H 10/09/16 04:44 Platelet Estimate Slight Decrease (Normal) L 10/09/16 04:44 PT 12.5 Seconds (9.4-12.1) H 10/09/16 04:44 APTT 25.2 Seconds (26.0-36.0) L 10/09/16 04:44 Sodium 132 mEq/L (136-145) L 10/09/16 04:44 BUN 29 mg/dL (7-20) H D 10/09/16 04:44 Creatinine 1.28 mg/dL (0.57-1.11) H 10/09/16 04:44 Est GFR ( Amer) 51 (> 60) L 10/09/16 04:44 Est GFR (Non-Af Amer) 42 (> 60) L 10/09/16 04:44 Glucose 176 mg/dL (70-99) H 10/09/16 04:44 POC Glucose 140 (58-89) H 10/08/16 20:44 Hemoglobin A1c 7.5 % (-5.6) H 10/09/16 04:44 AST 55 Units/L (5-34) H 10/08/16 04:21 Creatine Kinase 8 Units/L (29-168) L 10/09/16 09:24 Serum Total Protein 5.9 g/dL (6.0-8.3) L 10/08/16 04:21 Albumin 2.8 g/dL (3.5-5.0) L 10/08/16 04:21 Albumin/Globulin Ratio 0.9 (1.1-2.2) L 10/08/16 04:21 Triglycerides 411 mg/dL (< 150) H 10/09/16 04:44 HDL Cholesterol 17 mg/dL (40-59) L 10/09/16 04:44 Cholesterol/HDL Ratio 6.2 (0-4.9) H 10/09/16 04:44 Urine Protein 30 mg/dL (Neg-Trace) H 10/08/16 04:50 Urine Microscopic WBC 3-5 per hpf (0-3) H 10/08/16 04:50 Ur Squamous Epith Cells Many per lpf (None-Few) H 10/08/16 04:50 Enterococcus sp PCR DETECTED (Not Detect) A 10/08/16 04:21 Peter/B-Vanco Res Genes DETECTED (Not Detect) A 10/08/16 04:21 H & H 10/09/16 Range/Units 04:44 Hgb 9.1 L (11.5-15.4) g/dL Hct 28.8 L (35.3-44.9) % All other labs normal. Consult Discharge Plan - Plan Referrals: Jakob Chen MD [Primary Care Provider] - (web request 10/09/2016)
[2016-10-09] MEDS: Fenofibrate 54 MG TABLET PO SCH (17:22)
[2016-10-09] MEDS: Insulin DETEMIR 100 UNIT/ML X5UNITS SQ SCH (17:22)
--- NOTE | 2016-10-09 20:48 | Electrocardiograph Report ---
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
[2016-10-10 05:10] LABS: Hematocrit 24.1 % (35.3-44.9); Hemoglobin 7.7 g/dL (11.5-15.4); Mean Corpuscular Hemoglobin 29.6 pg (28.0-33.3); Mean Corpuscular Volume 92.7 fL (83.0-100.0); Mean Platelet Volume 11.5 fL (9.4-12.4); Platelet Count 109 K/mcL (140-400); Red Cell Distribution Width 16.4 % (11.5-14.5)
[2016-10-10 05:21] LABS: Calcium 8.5 mg/dL (8.6-10.8); Potassium 4.1 mEq/L (3.5-4.5)
[2016-10-10] MEDS: Cefepime HCl 2,000 MG in D5% in Water (Mini-Bag+) 100 ML IVPB SCH ×2 (10:16→23:49)
[2016-10-10] MEDS: 0.9 % Sodium Chloride 1,000 ML IVC SCH ×2 (10:16→12:20)
[2016-10-10] MEDS: Insulin LISPRO 300 UNITS/3 ML VIAL SQ SCH ×4 (10:16→21:08)
[2016-10-10] MEDS: Folic Acid 1 MG TABLET PO SCH (10:17)
[2016-10-10] MEDS: Furosemide 40 MG TABLET PO SCH ×2 (10:17→17:01)
[2016-10-10] MEDS: FLUoxetine 20 MG CAPSULE PO SCH (10:17)
[2016-10-10] MEDS: Cholecalciferol (D-3) 1,000 UNIT TABLET PO SCH (10:17)
[2016-10-10] MEDS: *HR* Heparin 5,000 UNIT/ML VIAL SQ SCH ×2 (10:18→17:01)
[2016-10-10] MEDS: Diltiazem CD (24hr) 240 MG CAPSULE PO SCH (10:18)
[2016-10-10] MEDS: Aspirin Enteric Coated 81 MG Tablet PO SCH (10:18)
[2016-10-10] MEDS: predniSONE 10 MG TABLET PO SCH (10:18)
[2016-10-10] MEDS: Insulin NPH 100 UNIT/ML (x5UNIT) SQ SCH (10:52)
--- NOTE | 2016-10-10 11:02 | Internal Med Progress Note ---
<Orville Pryor - Last Filed: 10/10/16 11:00> Date of Encounter: 10/10/16 Time of Encounter: 11:00 - Assessment and plan (1) Gram-positive cocci bacteremia Current Visit: Yes Status: Acute Assessment and plan: continue Cefepime IV. ID following. (2) Gram-negative bacterial infection Current Visit: Yes Status: Acute Assessment and plan: continue Daptomycin. ID following (3) Cellulitis Current Visit: Yes Status: Acute Assessment and plan: wound tested positive for pseudomonas. covered by cefepime. continue current abx course. Qualifiers: Site of cellulitis: extremity Site of cellulitis of extremity: lower extremity Laterality: right Qualified Code(s): L03.115 - Cellulitis of right lower limb (4) Sepsis Current Visit: Yes Status: Acute Assessment and plan: Today - HR 54 WBC 2.7. zyvox D/C'ed and started on daptomycin and Cefepime. most likely resolved. Qualifiers: Sepsis type: Streptococcus, other Qualified Code(s): A40.8 - Other streptococcal sepsis (5) GERD (gastroesophageal reflux disease) Current Visit: Yes Status: Chronic Assessment and plan: Ct IV Protonix 40 mg Qualifiers: Esophagitis presence: esophagitis presence not specified Qualified Code(s) : K21.9 - Gastro-esophageal reflux disease without esophagitis (6) Diabetes mellitus type 2, uncontrolled Current Visit: Yes Status: Chronic Assessment and plan: continue blood glucose before meals and at bedtime. 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 Qualified Code(s): E11.40 - Type 2 diabetes mellitus with diabetic neuropathy, unspecified; E11.65 - Type 2 diabetes mellitus with hyperglycemia; Z79.4 - residential (current) use of insulin (7) Hyperlipidemia Current Visit: Yes Status: Chronic Assessment and plan: Ct crestor Qualifiers: Hyperlipidemia type: pure hypercholesterolemia Qualified Code(s): E78.00 - Pure hypercholesterolemia, unspecified; E78.0 - Pure hypercholesterolemia (8) Hypertension Current Visit: Yes Status: Chronic Assessment and plan: ct norvasc, lopressor, cozar Qualifiers: Hypertension type: essential hypertension Qualified Code(s): I10 - Essential (primary) hypertension (9) DVT prophylaxis Current Visit: Yes Status: Acute Assessment and plan: ct heparin (10) Chronic kidney disease, stage 3 Current Visit: Yes Status: Chronic Assessment and plan: Strict I+O, and weights (11) Atrial fibrillation with RVR Current Visit: Yes Status: Chronic Assessment and plan: ct telemetry. repeat EKG pending. - Subjective Interval history: 61 yo F on day 2 admitted for Sepsis and chronic right lower leg cellulitis. Patient reports feeling much better compared to yesterday. Her only complaints today are muscle aches in her left calf and general annoyance in her right shoulder that started when she was brought in. no new complaints today. continues to deny n/v/c/diarrhea. - Constitutional Vitals: Temp Pulse Resp BP Pulse Ox 98 F 54 17 114/53 95 10/10/16 08:01 10/10/16 08:01 10/10/16 08:01 10/10/16 08:01 10/10/16 08:01 General appearance: Present: cooperative, A&O X 3, pleasant, no acute distress, obese, answers questions appropriately - Respiratory Respiratory exam: Present: CTAB. Absent: accessory muscle use, rales, rhonchi, wheezes - Cardiovascular Cardiovascular exam: Present: RRR, +S1, +S2. Absent: diastolic murmur, gallop, rubs, systolic murmur - GI/Abdominal GI/Abdominal exam: Present: normal bowel sounds, soft, no peritoneal signs. Absent: distended, tenderness - Neurological Exam Neurological exam: Present: alert - Psychiatric Psychiatric exam: Present: normal affect, normal mood Internal Medicine: Result - Labs CBC & Chem 7: 10/10/16 04:33 10/10/16 04:33 Labs: Short CBC 10/10/16 Range/Units 04:33 WBC 2.7 L (4.3-11.1) K/mcL Hgb 7.7 L (11.5-15.4) g/dL Hct 24.1 L (35.3-44.9) % Plt Count 109 L (140-400) K/mcL BMP 10/10/16 04:33 Sodium 132 L Potassium 4.1 Chloride 101 Carbon Dioxide 26 BUN 29 H Creatinine 1.35 H Glucose 313 H Calcium 8.5 L - ABG Interpretation ABG results: PT/INR, D-dimer PT 12.5 Seconds (9.4-12.1) H 10/09/16 04:44 Consult Discharge Plan - Plan Referrals: Jakob Chen MD [Primary Care Provider] - (web request 10/09/2016) <Adal Smith - Last Filed: 10/10/16 15:43> Date of Encounter: 10/10/16 - Constitutional Vitals: Temp Pulse Resp BP Pulse Ox 97.5 F L 67 17 123/66 94 10/10/16 11:31 10/10/16 11:31 10/10/16 11:31 10/10/16 11:31 10/10/16 11:31 Internal Medicine: Result - Labs CBC & Chem 7: 10/10/16 04:33 10/10/16 04:33 Labs: Short CBC 10/10/16 Range/Units 04:33 WBC 2.7 L (4.3-11.1) K/mcL Hgb 7.7 L (11.5-15.4) g/dL Hct 24.1 L (35.3-44.9) % Plt Count 109 L (140-400) K/mcL BMP 10/10/16 04:33 Sodium 132 L Potassium 4.1 Chloride 101 Carbon Dioxide 26 BUN 29 H Creatinine 1.35 H Glucose 313 H Calcium 8.5 L - ABG Interpretation ABG results: PT/INR, D-dimer PT 12.5 Seconds (9.4-12.1) H 10/09/16 04:44 - Attending Attestation I examined this patient and my medical decision-making was reviewed with the Resident Physician on 10/10/16. I agree with the documented findings, disposition and treatment plan as described except to the extent set forth below. 61 F being managed for RLE infected wound, pseudomonas, VRE bacteremia, Sepsis secondary to chronic LE wound infection and bacteremia She also has a PMH of RA, Chronic steroid therapy, Afib, ANCA vasculitis She denies new complains and actually states she is in the [facility] state of health in a couple of days Last febrile episode was 10/09 100.6 0327 Physical exam: Sitting in chair, out of bed, not in distress, CTAB, HS S!, S2 , Iregular, Abdomen is benign, RLE with ~5cm deep right foot dosal surface wound with purulent slough, R leg medial surface wound, with slough, extremities are pink and perfused Labs and Imaging reviewed Plan; Continue current care, monitor CK, Abdomen and pelvis CT with po contrast , GIve bolus, ID following, rest of details as in resident's documentation aboev.
[2016-10-10] MEDS: Insulin DETEMIR 100 UNIT/ML X5UNITS SQ SCH ×2 (12:19→17:04)
[2016-10-10] MEDS: DAPTOmycin 500 MG in 0.9 % Sodium Chloride 100 ML IVPB SCH (12:19)
--- NOTE | 2016-10-10 12:38 | Infectious Disease Progress No ---
Date of Encounter: 10/10/16 Time of Encounter: 12:36 - Assessment and Plan (1) VRE bacteremia Current Visit: Yes Status: Acute Source unclear: leg wounds/abscess unlikely source. Consider intra-abdominal source. 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 Uncomplicated. The patient has no indwelling hardware and no evidence of septic emboli. Blood cultures drawn 10/08/16 are positive 2/2 sets for VRE. Repeat blood cultures x [address] of the abdomen and pelvis with oral contrast. Continue daptomycin, but decrease dose to 6mg/kg. Baseline CK level checked and was normal. Check CK level weekly while on Daptomycin. Duration of treatment depends on the clinical picture. Monitor renal function and dose-adjust antibiotics. might need to consider KEM prior to d/c (2) Nonhealing surgical wound Current Visit: No Status: Acute Location: Right posteriomedial lower leg. Wound culture positive for PSEA. Sensitivities pending. Clinically, does not appear infected. MRI completed at [facility] 10/05/16 shows no evidence of osteomyelitis. CT of the lower extremity completed 10/08/16 shows a small fluid collection adjacent to the posteromedial calf wound, concerning for abscess. No active drainage or purulence noted. Clinically, the wound does not appear infected and there is no evidence of surrounding cellulitis. Consult wound care team for recommendation. Continue Cefepime 2 grams IV Q12H. Will de-escalate once we have sensitivities back. 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 Likely secondary to bacteremia. Improved. Bandemia has resolved. She was febrile overnight Blood cultures drawn 10/08/16 are positive 2/2 sets for VRE. Qualifiers: Sepsis type: sepsis due to unspecified organism Qualified Code(s): A41.9 - Sepsis, unspecified organism (5) Rheumatoid arthritis Current Visit: No Status: Chronic Qualifiers: Rheumatoid arthritis location: unspecified site Rheumatoid factor presence : unspecified presence Qualified Code(s): M06.9 - Rheumatoid arthritis, unspecified (6) Diffuse pulmonary alveolar hemorrhage Current Visit: No Status: Acute currently asymptomatic no hemoptysis (7) Renal insufficiency Current Visit: No Status: Resolved - Subjective Interval history: Patient seen and examined. No fever in last 24 hours cultures reviewed labs noted Infect Dis PN-Objective Data - Labs CBC & Chem 7: 10/10/16 04:33 10/10/16 04:33 Labs: Laboratory Results - last 24 hr 10/09/16 10/09/16 10/10/16 07:58 16:57 04:33 WBC 2.7 L RBC 2.60 L Hgb 7.7 L Hct 24.1 L MCV 92.7 MCH 29.6 MCHC 32.0 RDW 16.4 H Plt Count 109 L MPV 11.5 Sodium Potassium Chloride Carbon Dioxide BUN Creatinine Est GFR ( Amer) Est GFR (Non-Af Amer) BUN/Creatinine Ratio Glucose POC Glucose 177 H 338 H Calculated Osmolality Calcium 10/10/16 04:33 WBC RBC Hgb Hct MCV MCH MCHC RDW Plt Count MPV Sodium 132 L Potassium 4.1 Chloride 101 Carbon Dioxide 26 BUN 29 H Creatinine 1.35 H Est GFR ( Amer) 48 L Est GFR (Non-Af Amer) 40 L BUN/Creatinine Ratio 21 Glucose 313 H POC Glucose Calculated Osmolality 292 Calcium 8.5 L Cultures: Cultures 10/08/16 10:00 Wound Culture - Final Left Foot Pseudomonas aeruginosa 10/08/16 10:00 Wound Culture - Final Right Leg Pseudomonas aeruginosa Exam - Constitutional Vitals: Temp Pulse Resp BP Pulse Ox 97.5 F L 67 17 123/66 94 10/10/16 11:31 10/10/16 11:31 10/10/16 11:31 10/10/16 11:31 10/10/16 11:31 Consult Discharge Plan - Plan Referrals: Jakob Chen MD [Primary Care Provider] - (web request 10/09/2016)
[2016-10-10] MEDS ORDERED: 0.9 % Sodium Chloride 500 ML IVC ONE (14:01)
--- NOTE | 2016-10-10 16:00 | Vascular/Endovasc Consult Note ---
Date of Encounter: 10/10/16 Time of Encounter: 10:30 Assessment and Plan (1) Atherosclerosis of arteries of extremities Status: Chronic The patient has a history of VRE sepsis. She then developed E.Coli right lower extremity fasciitis. She was treated with fasciotomy. Her symptoms improved but she developed an ulcer on the dorsum of her right foot and a ulcer at the midportion of her medial calf incision. SHe has been treating the wounds with local wound care and Santyl ointment. She recently developed increased pain and swelling and was admitted. She was treated with antibiotics and reports that she is feeling better today. Her clinical exam reveals no evidence of limb threatening acute ischemia. Her ABIs are consistent with moderate disease bilaterally. There is no indication for acute intervention. An angiogram is contraindicated due to her sepsis and a CTA is contraindicated due to her kidney disease. Will obtain arterial imaging and a TCP02 level. Continue with local wound care and antibiotics. (2) Anemia Status: Acute Qualifiers: Anemia type: other cause Other causes of anemia: chronic disease, other Qualified Code(s): D63.8 - Anemia in other chronic diseases classified elsewhere (3) Cellulitis of right leg Status: Acute (4) Atrial fibrillation Status: Chronic Qualifiers: Atrial fibrillation type: chronic Qualified Code(s): I48.2 - Chronic atrial fibrillation (5) Chronic kidney disease, stage 3 Status: Chronic (6) Coronary artery disease Status: Chronic Qualifiers: Coronary Disease-Associated Artery/Lesion type: bypass graft [place] vs. 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 Graham is a 61 year old female with a complex history of sepsis, VRE bacteremia and E. Coli right leg fasciitis. She required a 4 ompartment fasciotomy. She developed a right forefoot ulcer and an ulcer on her medial calf that have been treated with local wound care. The wound were healing slowly, but she developed acute worsening pain in the right foot with erythema and tenderness. She was admitted to [facility] and started on antibiotics. She reports that her leg feels much better today after 1 day of antibiotics. Vascular surgery was consulted for evaluation due to a diminished pulse exam. She denies an rest pain or gangrene. She denies chest pain or shortness of breath. Past Med Surg Social Fam HX - Past Medical History Medical history: atrial fibrillation, COPD, coronary artery disease, diabetes, GERD, hyperlipidemia, hypertension, myocardial infarction, RA, thyroid disease, TIA, other (ANCA positive vasculitis) Psychiatric history: no psych history - Past Surgical History Surgical History: angioplasty/stent, coronary bypass (CABG), hysterectomy, thyroidectomy, other (Right leg fasciotomy) - Social History Smoking Status: Former smoker Smokeless Tobacco Status: No Alcohol use: none Drug use: none - Family History Mother Adopted: No Race: Family Member Ethnicity: Non- Living Status: Age at : 57 Cause of : [place] Hx Family Cardiac Disorders: Yes (HD, HTN, HLD, [place]) Hx Family Respiratory Disorders: No Hx Family Cancer: Yes (breast ca) Hx Family GI Disorders: No Hx Family Endocrine Disorder: No Hx Family Neuromuscular Disorders: No Hx Family Neurologic Disorders: No Hx Family HEENT Disorders: No Hx Family Autoimmune Disorders: No Brother Race: Family Member Ethnicity: Non- Living Status: Still Living Hx Family Cardiac Disorders: Yes (HD) Hx Family Respiratory Disorders: Yes Hx Family Cancer: Yes Hx Family GI Disorders: No Hx Family Endocrine Disorder: Yes Hx Family Neuromuscular Disorders: No Hx Family Neurologic Disorders: No Hx Family HEENT Disorders: No Hx Family Autoimmune Disorders: No Father Race: Family Member Ethnicity: Non- Living Status: Age at : 97 Hx Family Medical Disorders: No Medications and Allergies Cyclobenzaprine [Flexeril] 10 mg PO TID PRN 06/10/15 [History] Isosorbide DInitrate [Isosorbide Dinitrate] 60 mg PO BID 06/10/15 [History] Rosuvastatin [Crestor] 40 mg PO DAILY 06/10/15 [History] Levothyroxine Sodium [Levoxyl] 125 mcg PO DAILY 02/01/16 [History] Fenofibrate 54 mg PO QPM 03/20/16 [History] Omeprazole [PriLOSEC] 20 mg PO DAILY 03/26/16 [History] Sennosides/Docusate Sodium [Senna Plus] 1 tab PO BID PRN 07/02/16 [History] Ferrous Sulfate 325 mg PO BIDWM #60 tablet. 07/03/16 [Rx] Acetaminophen [Tylenol Arthritis] 650 mg PO Q4HR PRN 10/08/16 [History] Aspirin 81 mg PO DAILY 10/08/16 [History] Calcium Carbonate/Vitamin D3 [Calcium 600-Vit D3 200 Tablet] 1 tab PO DAILY 08/19 [History] Carvedilol [Coreg] 25 mg PO BID 10/08/16 [History] Cholecalciferol (Vitamin D3) [Vitamin D3] 1,000 unit PO DAILY 10/08/16 [History] Diltiazem CD (24hr) [Cardizem CD] 240 mg PO DAILY 10/08/16 [History] FLUoxetine HCl [Prozac] 20 mg PO DAILY 10/08/16 [History] Folic Acid 1 mg PO DAILY 10/08/16 [History] Furosemide [Lasix] 40 mg PO BID 10/08/16 [History] HYDROcodone/Acet 10/325 mg [[place] 10-325 mg] 1 tab PO Q6HR PRN 10/08/16 [History ] Ipratropium/Albuterol Neb [Duoneb] 3 ml IH Q6HR PRN 10/08/16 [History] Losartan [Cozaar] 25 mg PO BID 10/08/16 [History] Mupirocin [Bactroban Oint] 1 appl TP BID 10/08/16 [History] Nitroglycerin [Nitrostat] 0.4 mg SL AD PRN 10/08/16 [History] Polyethylene Glycol 3350 [MiraLAX] 17 gm PO DAILY PRN 10/08/16 [History] Potassium Chloride [Klor-Con 10] 10 meq PO DAILY 10/08/16 [History] Sulfamethoxazole/Trimeth DS [Bactrim Ds] 1 tab PO 3XW 10/08/16 [History] hydrOXYzine pamoate [HydrOXYzine Pamoate] 25 mg PO TID PRN 10/08/16 [History] predniSONE [PredniSONE] 30 mg PO DAILY 10/08/16 [History] Commode - Three In One [THREE IN ONE COMMODE] 1 each .ROUTE PRN PRN #1 each [Rx] DAPTOmycin [Cubicin] 500 mg IV Q24H #14 vial 10/16/16 [Rx] Insulin DETEMIR [Levemir] 35 unit SQ QPM 10/16/16 [Rx] Insulin DETEMIR [Levemir] 40 unit SQ DAILY 10/16/16 [Rx] Insulin LISPRO [HumaLOG] 15 units SQ TIDWM #2 vial 10/16/16 [Rx] Walker [WALKER] 1 each .ROUTE AD #1 each 10/16/16 [Rx] Allergies lisinopril Allergy (Verified 07/11/16 05:00) Swelling of Lip/Tongue/Throat Penicillins [PCN] Allergy (Verified 03/19/16 21:38) Hives All Systems Review: A 10-system review of systems was performed and is negative for pertinent findings except as documented above in the HPI. - Constitutional Constitutional: no chills, no fever(s) - Cardiovascular Cardiovascular: no chest pain at rest, no chest pain with exertion, no dyspnea at rest, no dyspnea on exertion Exam General: Present: Conversant, No Apparent Distress Neck: Absent: JVD, Lymphadenopathy Cardiac: Present: Irregular Rhythm Lungs: Present: Normal Breath Sounds Neuro: Present: Alert and responsive, No focal deficits noted, Motor nerves grossly intact, Sensory nerves grossly intact Abdomen: Present: Soft Vascular: Present: Normal capillary refill, Pulse, diminished (right pedal signals are biphasic), Pulse, normal (Left). Absent: Cyanosis, Edema Skin: Present: Wound/ulcer(s) (Right forefoot ulcer and right medial calf ulcers with viable margins, no purulence or fluctuance, erythema is present) Consult Discharge Plan - Plan Instructions: Cellulitis (DC), Epistaxis (DC) Additional Instructions: Continue to use Bactroban ointment in front of your nose three times daily after discharge for a total of one month. Follow up with PCP to have sutures removed on 10/23 by PCP Patient declined INR clinic and prefers to have PCP to dose warfarin. Blood sugars were uncontrolled during hospitalization. PCP to adjust diabetic medications in outpatient. Patient sent home on increased hospitalization dose of 40 mg in AM and 35 mg in PM. Continue outpatient infusion of daptomycin for 2 weeks and follow up with ID during that time. Referrals: Vincenzo Reyes DO [Partnered Physician] - (Please call ENT office for followup after discharge if needed for continued nose bleeds. ) Ana Wadsworth CNP [Advanced Practice Nurse] - 10/30/16 9:30 am Vic Bernal MD [Partnered Physician] - 10/23/16 10:00 am (New Consult Appt) Prescriptions: Commode - Three In One [THREE IN ONE COMMODE] 1 each .ROUTE PRN PRN #1 each PRN Reason: Fatigue DAPTOmycin [Cubicin] 500 mg IV Q24H #14 vial Insulin LISPRO [HumaLOG] 15 units SQ TIDWM #2 vial Walker [WALKER] 1 each .ROUTE AD #1 each
[2016-10-10] MEDS: Fenofibrate 54 MG TABLET PO SCH (17:01)
[2016-10-10 18:51] LABS: Acinetobacter baumannii by PCR Not Detected (Not Detect); Candida albicans by PCR Not Detected (Not Detect); Candida glabrata by PCR Not Detected (Not Detect); Escherichia coli by PCR Not Detected (Not Detect); Klebsiella oxytoca by PCR Not Detected (Not Detect); Klebsiella pneumoniae by PCR Not Detected (Not Detect); Pseudomonas aeruginosa by PCR Not Detected (Not Detect); Serratia marcescens by PCR Not Detected (Not Detect); Staphylococcus aureus by PCR Not Detected (Not Detect); Streptococcus agalactiae(B)PCR Not Detected (Not Detect); Streptococcus by PCR Not Detected (Not Detect); Streptococcus pneumoniae PCR Not Detected (Not Detect); Streptococcus pyogenes (A) PCR Not Detected (Not Detect); blaKPC Carbapenem-Resist Gene Not Detected (Not Detect); mecA Methicillin-Resist Gene Not Detected (Not Detect)
[2016-10-10 18:52] LABS: Candida krusei by PCR Not Detected (Not Detect); Candida parapsilosis by PCR Not Detected (Not Detect); Candida tropicalis by PCR Not Detected (Not Detect); vanA/B Vancomycin-Resist Genes ***DETECTED*** (Not Detect)
[2016-10-10 18:53] LABS: Enterococcus by PCR ***DETECTED*** (Not Detect)
[2016-10-10] MEDS ORDERED: *HR* Heparin 5,000 UNIT/ML VIAL IVP PRN ×2 (19:36)
[2016-10-10] MEDS ORDERED: *HR* Heparin 5,000 UNIT/ML VIAL IVP ONE (19:36)
--- NOTE | 2016-10-10 19:55 | Event Note ---
<Fazal Jacques - Last Filed: 10/10/16 23:00> Date of Encounter: 10/10/16 Time of Encounter: 19:30 I was notified at 1928 by nurse about the finding of mobile thrombus in patient' s left common femoral vein. Patient was seen and examined. Patient has right leg pain with no significant change since admission. Patient also has some shortness of breath but thinks it's from volume overload as she has been encouraged to drink more water. Patient recalls having history of blood clots in the lung but cannot tell what kind of anticoagulation treatment she got at that time. Patient reports no known allergy to heparin. Patient is also noted to have some renal insufficiency (SCr 1.35 / eGFR 40). Will start full dose heparin drip for DVT treatment. Patient verbalized her understanding about the DVT and agreed to start heparin drip. I was notified by nurse again at 2245 for patient' worsening shortness of breath. Given patient has net +4L since admission, patient is likely volume overload. One dose of Lasix 20 mg IV ordered and resume home hydroxyzine prn anxiety. <Conrad Henderson - Last Filed: 10/11/16 01:58> Date of Encounter: 10/11/16 My medical decision-making was reviewed with the Resident Physician, Dr. Raad Jacques. I agree with the documented findings, disposition and treatment plan as described.
[2016-10-10 20:26] LABS: Hematocrit 23.9 % (35.3-44.9); Hemoglobin 7.8 g/dL (11.5-15.4); Mean Corpuscular HGB Conc 32.6 g/dL (31.6-35.5); Mean Corpuscular Hemoglobin 30.1 pg (28.0-33.3); Mean Corpuscular Volume 92.3 fL (83.0-100.0); Mean Platelet Volume 11.5 fL (9.4-12.4); Platelet Count 141 K/mcL (140-400); Red Blood Count 2.59 M/mcL (3.82-4.97); Red Cell Distribution Width 16.4 % (11.5-14.5)
[2016-10-10 20:28] LABS: Prothrombin Time 11.2 Seconds (9.4-12.1)
[2016-10-10 20:30] LABS: Activated Partial Thrombo Time 25.1 Seconds (26.0-36.0)
[2016-10-10] MEDS: Heparin 25,000 UNIT/500 ML D5W 25,000 UNIT/500 ML MLS IVC SCH (21:09)
[2016-10-10] MEDS ORDERED: Furosemide 20 MG/2 ML VIAL IVP ONE (22:53)
--- NOTE | 2016-10-10 23:27 | Arterial Study Report ---
LE Arterial Duplex Patient Name:Norah Graham Order Number:[id number] Procedure Date:10/10/2016 Date:1955ge:61 yrs Gender:Female Rt.BP:125 / 52 mmHgHeart Rate: Location:[facility] Room #: 2A32 Supervisor Malted Milk:Allie Blackwood RDCS Referring MD:Clayton Lim MD pr intern:Jakob Chen MD Reading MD:Samy Doty MD , FACS Primary Indications:PVD with ulcer Impressions: Findings: Right lower extremity has nonstenotic plaque. Note thrombus seen in right common femoral vein Recommendations: Test completed on 10/10/2016 at 7:06:00 pm. Critical findings reported to Pt Marjorie ZULUAGA in person at 7:10:00 pm on 10/10/2016 by Allie Blackwood RDCS. Findings Arterial Duplex Results: Right: The PSV in the right mid external iliac artery is 64 cm/s. The PSV in the right distal external iliac artery is 58 cm/s. The PSV in the right common femoral artery is 51 cm/s. The PSV in the right proximal superficial femoral artery is 62 cm/s. The PSV in the right mid superficial femoral artery is 50 cm/s. The PSV in the right popliteal artery is 36 cm/s. The PSV in the right distal superficial femoral artery is 50 cm/s. The PSV in the right proximal posterior tibial artery is 20 cm/s. The PSV in the right distal posterior tibial artery is 30 cm/s. Incidental finding, mobile thrombus noted in Common Femoral Vein. Preliminary given to pt Marjorie ZULUAGA. LE Duplex Side Vessel PSV EDV Assessment Right Mid External Iliac 64 11 Right Distal External Iliac 58 4 Right Common Femoral 51 9 Right Prox Superficial Femoral 62 10 Right Mid Superficial Femoral 50 3 Right Popliteal 36 6 Right Distal Superficial Femoral 50 2 Right Prox Posterior Tibial 20 5 Right Distal Posterior Tibial 30 4 [place] Updated by Samy Doty MD, FACS on 10/10/2016 11:19:24 PM Samy Doty MD electronically signed on 10/10/2016 11:20:38 PM with status of Final
--- NOTE | 2016-10-10 23:27 | Arterial Study Report ---
LE Arterial Physiologic Study Patient Name:Norah Graham Order Number:[id number] Procedure Date:10/10/2016 Date:1955ge:61 yrs Gender:Female Lt BP:138 / mmHg Rt.BP:140 / mmHgHeart Rate: Location:[facility] Room #: 2A32 Home Improvement Installer:Melissa Carrasco Referring MD:Angelina Jj CHEMOTHERAPIST animal husbandry professor:Jakob Chen MD Reading MD:Samy Doty MD , FACS Risk Factors Yes/No Diabetes Yes Hypercholesterolemia Unknown Smoker Previous Yes Hx of TIA Yes Hypertension Yes Impressions: 1) Bilateral lower extremities waveform demonstrates moderately diminished hemodynamics. 2) Bilateral Ankle Brachial Index demonstrates moderately occlusive disease. 3) Inflow disease suspected on basis of waveforms and pressure measurements. Recommendations: After imaging the patient returned to their room. Findings LE Arterial Physiologic Exam: Segmental Pressures: Right: The right high thigh pressure is 72 mmHg with an index of 0.51. The right above knee pressure is 71 mmHg with an index of 0.51. The right posterior tibial pressure is 72 mmHg with an index of 0.51. The right dorsalis pedis pressure is 90 mmHg with an index of 0.64. Left: The left high thigh pressure is 75 mmHg with an index of 0.54. The left above knee pressure is 61 mmHg with an index of 0.44. The left below knee pressure is 72 mmHg with an index of 0.51. The left posterior tibial pressure is 83 mmHg with an index of 0.59. The left dorsalis pedis pressure is 84 mmHg with an index of 0.6. PVR: Right: The PVR waveforms are mildly diminished in the right high thigh, right lower thigh and right ankle and not diagnostic in the right calf. Left: The PVR waveforms are mildly diminished in the left high thigh, left lower thigh, left calf and left ankle. Segmental Pressures Side Location Pressure Index Result Right High Thigh 72 0.51 Right Above Knee 71 0.51 Right Posterior Tibial 72 0.51 Right Dorsalis Pedis 90 0.64 Left High Thigh 75 0.54 Left Above Knee 61 0.44 Left Below Knee 72 0.51 Left Posterior Tibial 83 0.59 Left Dorsalis Pedis 84 0.60 Ankle Brachial Index Right Systolic Diastolic Y[place]INE Brachial 140 0.64 Dorsalis Pedis 90 0.64 Posterior Tibial 72 0.51 Left Systolic Diastolic Y[place]INE Brachial 138 0.60 Dorsalis Pedis 84 0.60 Posterior Tibial 83 0.59 Updated by Samy Doty MD, FACS on 10/10/2016 11:22:45 PM with Status of Final Samy Doty MD electronically signed on 10/10/2016 11:23:15 PM with status of Final
[2016-10-10] MEDS: hydrOXYzine pamoate 25 MG CAPSULE PO PRN (23:55)
[2016-10-11 04:37] LABS: Basophils % 0.2 %; Hematocrit 25.4 % (35.3-44.9); Hemoglobin 8.2 g/dL (11.5-15.4); Immature Granulocytes % 10.6 % (0-4); Lymphocytes # 0.3 K/mcL (0.6-4.6); Mean Corpuscular HGB Conc 32.3 g/dL (31.6-35.5); Mean Corpuscular Hemoglobin 29.7 pg (28.0-33.3); Mean Platelet Volume 11.3 fL (9.4-12.4); Monocytes # 0.4 K/mcL (0.0-1.3); Monocytes % 9.4 %; Nucleated Red Blood Cells 0.5 /100 WBC (0); Platelet Count 154 K/mcL (140-400); Red Blood Count 2.76 M/mcL (3.82-4.97); Red Cell Distribution Width 16.2 % (11.5-14.5); Segmented Neutrophils % 71.8 %
[2016-10-11 04:51] LABS: Calcium 9.1 mg/dL (8.6-10.8); Potassium 3.8 mEq/L (3.5-4.5)
[2016-10-11 05:56] LABS: Activated Partial Thrombo Time > 360.0 Seconds (26.0-36.0)
[2016-10-11 06:08] LABS: Heparin anti-factor XA UFH 1.86 IU/mL (0.30-0.70)
[2016-10-11] MEDS: hydrOXYzine pamoate 25 MG CAPSULE PO PRN (06:46)
[2016-10-11 06:58] LABS: Platelet Estimate Normal (Normal)
[2016-10-11 06:59] LABS: Hypochromasia Present (Not Present); Polychromasia 1+ (Not Present)
[2016-10-11 07:00] LABS: Hypersegmented Neutrophils Present (Not Present)
--- NOTE | 2016-10-11 08:37 | Internal Med Progress Note ---
<Orville Pryor - Last Filed: 10/11/16 13:34> Date of Encounter: 10/11/16 Time of Encounter: 08:34 - Assessment and plan (1) Thrombosis Current Visit: Yes Status: Acute Assessment and plan: Thrombis seen in Right common femoral vein on LE arterial duplex - Continue IV heparin (2) Gram-positive cocci bacteremia Current Visit: Yes Status: Acute Assessment and plan: continue Cefepime IV. ID following. (3) Gram-negative bacterial infection Current Visit: Yes Status: Acute Assessment and plan: continue Daptomycin. ID following (4) Cellulitis Current Visit: Yes Status: Acute Assessment and plan: wound tested positive for pseudomonas. covered by cefepime. continue current abx course. Qualifiers: Site of cellulitis: extremity Site of cellulitis of extremity: lower extremity Laterality: right Qualified Code(s): L03.115 - Cellulitis of right lower limb (5) Sepsis Current Visit: Yes Status: Acute Assessment and plan: Today - HR 54 WBC 2.7. zyvox D/C'ed and started on daptomycin and Cefepime. most likely resolved. Qualifiers: Sepsis type: Streptococcus, other Qualified Code(s): A40.8 - Other streptococcal sepsis (6) GERD (gastroesophageal reflux disease) Current Visit: Yes Status: Chronic Assessment and plan: Ct IV Protonix 40 mg Qualifiers: Esophagitis presence: esophagitis presence not specified Qualified Code(s) : K21.9 - Gastro-esophageal reflux disease without esophagitis (7) Diabetes mellitus type 2, uncontrolled Current Visit: Yes Status: Chronic Assessment and plan: continue blood glucose before meals and at bedtime. continue levemir and SSI Qualifiers: Diabetes mellitus complication status: with neurologic complications Diabetes mellitus complication detail: with unspecified neuropathy Diabetes mellitus retirement insulin use: with retirement use Qualified Code(s): E11.40 - Type 2 diabetes mellitus with diabetic neuropathy, unspecified; E11.65 - Type 2 diabetes mellitus with hyperglycemia; Z79.4 - FDC (current) use of insulin (8) Hyperlipidemia Current Visit: Yes Status: Chronic Assessment and plan: Ct crestor Qualifiers: Hyperlipidemia type: pure hypercholesterolemia Qualified Code(s): E78.00 - Pure hypercholesterolemia, unspecified; E78.0 - Pure hypercholesterolemia (9) Hypertension Current Visit: Yes Status: Chronic Assessment and plan: ct norvasc, lopressor, cozar Qualifiers: Hypertension type: essential hypertension Qualified Code(s): I10 - Essential (primary) hypertension (10) DVT prophylaxis Current Visit: Yes Status: Acute Assessment and plan: ct heparin (11) Chronic kidney disease, stage 3 Current Visit: Yes Status: Chronic Assessment and plan: Strict I+O, and weights (12) Atrial fibrillation with RVR Current Visit: Yes Status: Chronic Assessment and plan: ct telemetry. repeat EKG pending. - Subjective Interval history: 61 yo F on day 3 admitted for Sepsis and chronic right lower leg cellulitis. Patient reported an increase of SOB overnight. She reports feeling better after she was given lasix. no new complaints today. she continues to feel constantly tired. continues to deny n/v/c/diarrhea. - Constitutional Vitals: Temp Pulse Resp BP Pulse Ox 97.7 F 71 16 164/60 96 10/11/16 07:58 10/11/16 07:58 10/11/16 07:58 10/11/16 07:58 10/11/16 07:58 General appearance: Present: cooperative, A&O X 3, pleasant, no acute distress, obese, answers questions appropriately - Head Head exam: Present: atraumatic, normocephalic - Respiratory Respiratory exam: Present: CTAB. Absent: accessory muscle use, rales, rhonchi, wheezes - Cardiovascular Cardiovascular exam: Present: RRR, +S1, +S2. Absent: diastolic murmur, gallop, rubs, systolic murmur - GI/Abdominal GI/Abdominal exam: Present: diminished bowel sounds (has had daily bowel movements but have been rock hard) - Neurological Exam Neurological exam: Present: alert, oriented X3 Internal Medicine: Result - Labs CBC & Chem 7: 10/11/16 03:41 10/11/16 03:41 Labs: Short CBC 10/10/16 10/11/16 Range/Units 20:05 03:41 WBC 3.9 L 4.2 L (4.3-11.1) K/mcL Hgb 7.8 L 8.2 L (11.5-15.4) g/dL Hct 23.9 L 25.4 L (35.3-44.9) % Plt Count 141 154 (140-400) K/mcL Neutrophils # 3.0 (1.6-8.9) K/mcL BMP 10/11/16 03:41 Sodium 136 Potassium 3.8 Chloride 99 Carbon Dioxide 27 BUN 30 H Creatinine 1.42 H Glucose 299 H Calcium 9.1 - ABG Interpretation ABG results: PT/INR, D-dimer PT 11.2 Seconds (9.4-12.1) 10/10/16 20:05 - Impressions Impressions Abdomen/Pelvis CT 10/10/16 16:30 IMPRESSION: No acute intra-abdominal or intrapelvic abnormality on noncontrast exam. There is bilateral perinephric stranding with a small amount of stranding extending along both pericolic gutters, right greater than left. Cholelithiasis. D/ / Hilda Maddox MD / Hilda Maddox MD Interpreting Provider: Hilda Maddox MD Consult Discharge Plan - Plan Referrals: Jakob Chen MD [Primary Care Provider] - (web request 10/09/2016) Vic Bernal MD [Partnered Physician] - 10/23/16 10:00 am (New Consult Appt) <Adal Smith T - Last Filed: 10/11/16 15:28> Date of Encounter: 10/11/16 - Assessment and plan (1) DVT (deep venous thrombosis) Current Visit: Yes Status: Acute Qualifiers: DVT location: lower extremity Affected thrombotic vein of extremity: femoral Chronicity: acute Laterality: left Qualified Code(s): I82.412 - Acute embolism and thrombosis of left femoral vein - Constitutional Vitals: Temp Pulse Resp BP Pulse Ox 98.1 F 75 16 133/57 91 10/11/16 10:56 10/11/16 10:56 10/11/16 10:56 10/11/16 10:56 10/11/16 10:56 Internal Medicine: Result - Labs CBC & Chem 7: 10/11/16 03:41 10/11/16 03:41 Labs: Short CBC 10/10/16 10/11/16 Range/Units 20:05 03:41 WBC 3.9 L 4.2 L (4.3-11.1) K/mcL Hgb 7.8 L 8.2 L (11.5-15.4) g/dL Hct 23.9 L 25.4 L (35.3-44.9) % Plt Count 141 154 (140-400) K/mcL Neutrophils # 3.0 (1.6-8.9) K/mcL BMP 10/11/16 03:41 Sodium 136 Potassium 3.8 Chloride 99 Carbon Dioxide 27 BUN 30 H Creatinine 1.42 H Glucose 299 H Calcium 9.1 - ABG Interpretation ABG results: PT/INR, D-dimer PT 11.2 Seconds (9.4-12.1) 10/10/16 20:05 - Impressions Impressions Abdomen/Pelvis CT 10/10/16 16:30 IMPRESSION: No acute intra-abdominal or intrapelvic abnormality on noncontrast exam. There is bilateral perinephric stranding with a small amount of stranding extending along both pericolic gutters, right greater than left. Cholelithiasis. D/ / Hilda Maddox MD / Hilda Maddox MD Interpreting Provider: Hilda Maddox MD - Attending Attestation I examined this patient and my medical decision-making was reviewed with the Resident Physician on 10/11/16. I agree with the documented findings, disposition and treatment plan as described except to the extent set forth below. 61 F being managed for RLE infected wound with pseudomonas, VRE bacteremia, Sepsis secondary to chronic LE wound infection and bacteremia She also has a PMH of RA, Chronic steroid therapy, Afib, ANCA vasculitis She denies new complains Her abdomen and pelvis imaging with po contrast done 10/10 showed perinephric stranding. Venous soppler showed a mobile L femoral vein thrombus, patient has been started on heparin Her YASSINE showed moderate disease No intervention per vascular Last febrile episode was 10/09 100.6 0327 She also has mild epistaxis this a.m from the O2 nasal cannula Physical exam: Sitting in chair, out of bed, not in distress, CTAB, HS S!, S2 , Irregular, Abdomen is benign, RLE with ~5cm deep right foot dosal surface wound with purulent slough, R leg medial surface wound, with slough, extremities are pink and perfused Labs and Imaging reviewed Plan; After a lengthy discussion with patient regarding anticoagulation for Afib and DVT, she has agreed to warfarin rather than LAURA. [facility], continue heparin drip, monitor Hb. Blood culture done 10/09, resulted today with VRE in one bottle-repeat blood culture today Continue current care, monitor CK Patient is net positive fluid balance due to contrast exposure, continue lasix, renal function is stable, continue to monitor She has and OM per imaging from [facility] and here. Consider changing daptomycin to Zyvox per sensitivity, Infectious disease is following Continue renally dosed Cefepime Rest of details as in resident physician's documentation High risk patient due to ongoing diagnoses, persistent bacteremia and use of heparin drip
[2016-10-11] MEDS: Insulin LISPRO 300 UNITS/3 ML VIAL SQ SCH ×5 (08:39→21:36)
[2016-10-11] MEDS: Insulin DETEMIR 100 UNIT/ML X5UNITS SQ SCH ×2 (08:39→17:19)
[2016-10-11] MEDS: Furosemide 40 MG TABLET PO SCH ×2 (08:40→17:19)
[2016-10-11] MEDS: predniSONE 10 MG TABLET PO SCH (08:40)
[2016-10-11] MEDS: Folic Acid 1 MG TABLET PO SCH (08:41)
[2016-10-11] MEDS: Diltiazem CD (24hr) 240 MG CAPSULE PO SCH (08:41)
[2016-10-11] MEDS: Cholecalciferol (D-3) 1,000 UNIT TABLET PO SCH (08:41)
[2016-10-11] MEDS: FLUoxetine 20 MG CAPSULE PO SCH (08:41)
[2016-10-11] MEDS: Aspirin Enteric Coated 81 MG Tablet PO SCH (08:41)
[2016-10-11] MEDS: Cefepime HCl 2,000 MG in D5% in Water (Mini-Bag+) 100 ML IVPB SCH ×2 (10:25→23:06)
[2016-10-11] MEDS: Ondansetron 4 MG/2 ML VIAL IVP PRN (10:26)
[2016-10-11] MEDS: DAPTOmycin 500 MG in 0.9 % Sodium Chloride 100 ML IVPB SCH (11:33)
[2016-10-11] MEDS: *HR* HYDROcodone/Acet 5/325 mg TABLET PO PRN ×2 (13:28→21:34)
--- NOTE | 2016-10-11 14:27 | Infectious Disease Progress No ---
Date of Encounter: 10/11/16 Time of Encounter: 14:25 - Assessment and Plan (1) Sepsis Current Visit: No Status: Acute The patient had three SIRS criteria on admission. Likely secondary to bacteremia. Improved. Bandemia has resolved. She was febrile overnight Blood cultures drawn 10/08/16 and 10/09/16 are positive 2/2 sets for VRE. Qualifiers: Sepsis type: sepsis due to unspecified organism Qualified Code(s): A41.9 - Sepsis, unspecified organism (2) Nonhealing surgical wound Current Visit: No Status: Acute Location: Right posteriomedial lower leg. Wound culture positive for PSEA. Sensitivities pending. Clinically, does not appear infected. MRI completed at [facility] 10/05/16 shows no evidence of osteomyelitis. CT of the lower extremity completed 10/08/16 shows a small fluid collection adjacent to the posteromedial calf wound, concerning for abscess. No active drainage or purulence noted. Clinically, the wound does not appear infected and there is no evidence of surrounding cellulitis. Consult wound care team for recommendation. Continue Cefepime 2 grams IV Q12H. Will de-escalate once we have sensitivities back. 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 transplanted heart: [place] heart Associated angina: without angina Qualified Code(s): I25.810 - Atherosclerosis of coronary artery bypass graft(s) without angina pectoris (10) Diabetes mellitus type 2, uncontrolled Current Visit: Yes Status: Chronic Qualifiers: Diabetes mellitus complication status: with neurologic complications Diabetes mellitus complication detail: with unspecified neuropathy Diabetes mellitus physician relations manager insulin use: with senior care use Qualified Code(s): E11.40 - Type 2 diabetes mellitus with diabetic neuropathy, unspecified; E11.65 - Type 2 diabetes mellitus with hyperglycemia; Z79.4 - fine sander (current) use of insulin (11) VRE bacteremia Current Visit: Yes Status: Acute Source unclear: leg wounds/abscess unlikely source. Consider intra-abdominal source. 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 Uncomplicated. The patient has no indwelling hardware and no evidence of septic emboli. Blood cultures drawn 10/08/16 are positive 2/2 sets for VRE. Repeat blood cultures x [address] abdomen/pelvis noted (even tough without contrast) Continue daptomycin, but decrease dose to 6mg/kg. Baseline CK level checked and was normal. Check CK level weekly while on Daptomycin. Duration of treatment depends on the clinical picture. Monitor renal function and dose-adjust antibiotics. recommend KEM - Subjective Interval history: Patient seen and examined. No fever in last 24 hours cultures reviewed labs noted doing well clinically, repeat cultures continue positive for VRE Infect Dis PN-Objective Data - Labs CBC & Chem 7: 10/11/16 03:41 10/11/16 03:41 Labs: Laboratory Results - last 24 hr 10/09/16 10/09/16 10/09/16 12:27 16:06 20:45 WBC RBC Hgb Hct MCV MCH MCHC RDW Plt Count MPV Immature Gran % Seg Neutrophils % Lymphocytes % Monocytes % Eosinophils % Basophils % Neutrophils # Lymphocytes # Monocytes # Eosinophils # Basophils # Nucleated RBCs/100 WBC Hypersegmented Neuts Platelet Estimate Polychromasia Hypochromasia PT INR APTT Heparin Anti-Xa, Unfract Sodium Potassium Chloride Carbon Dioxide BUN Creatinine Est GFR ( Amer) Est GFR (Non-Af Amer) BUN/Creatinine Ratio Glucose POC Glucose 247 H 395 H Calculated Osmolality Calcium Stool Occult Blood A. baumannii (PCR) Not Detected Jenna albicans (PCR) Not Detected C. glabrata (PCR) Not Detected C. krusei (PCR) Not Detected C. parapsilosis (PCR) Not Detected C. tropicalis (PCR) Not Detected Enterobacteriac sp PCR Not Detected E. cloacae complex PCR Not Detected Enterococcus sp PCR DETECTED A E. coli (PCR) Not Detected H. influenzae (PCR) Not Detected Klebsiella oxytoca PCR Not Detected Klebsiella pneumoniae Not Detected List. monocytogenes PCR Not Detected N. meningitidis (PCR) Not Detected Proteus species (PCR) Not Detected Serratia marcescens PCR Not Detected Staphylococcus sp PCR Not Detected Staph aureus (PCR) Not Detected mecA-Methicil Res Gene Not Detected Streptococcus sp PCR Not Detected Group A Strep DNA Not Detected Group B Strep (PCR) Not Detected Strep pneumoniae (PCR) Not Detected P. aeruginosa (PCR) Not Detected Peter/B-Vanco Res Genes DETECTED A KPC (blaKPC) Detect PCR Not Detected Specimen Rejected 10/10/16 10/10/16 10/10/16 07:54 08:06 11:26 WBC RBC Hgb Hct MCV MCH MCHC RDW Plt Count MPV Immature Gran % Seg Neutrophils % Lymphocytes % Monocytes % Eosinophils % Basophils % Neutrophils # Lymphocytes # Monocytes # Eosinophils # Basophils # Nucleated RBCs/100 WBC Hypersegmented Neuts Platelet Estimate Polychromasia Hypochromasia PT INR APTT Heparin Anti-Xa, Unfract Sodium Potassium Chloride Carbon Dioxide BUN Creatinine Est GFR ( Amer) Est GFR (Non-Af Amer) BUN/Creatinine Ratio Glucose POC Glucose 261 H 306 H Calculated Osmolality Calcium Stool Occult Blood Positive A A. baumannii (PCR) Jenna albicans (PCR) C. glabrata (PCR) C. krusei (PCR) C. parapsilosis (PCR) C. tropicalis (PCR) Enterobacteriac sp PCR E. cloacae complex PCR Enterococcus sp PCR E. coli (PCR) H. influenzae (PCR) Klebsiella oxytoca PCR Klebsiella pneumoniae List. monocytogenes PCR N. meningitidis (PCR) Proteus species (PCR) Serratia marcescens PCR Staphylococcus sp PCR Staph aureus (PCR) mecA-Methicil Res Gene Streptococcus sp PCR Group A Strep DNA Group B Strep (PCR) Strep pneumoniae (PCR) P. aeruginosa (PCR) Peter/B-Vanco Res Genes KPC (blaKPC) Detect PCR Specimen Rejected 10/10/16 10/10/16 10/10/16 16:27 20:05 20:05 WBC 3.9 L RBC 2.59 L Hgb 7.8 L Hct 23.9 L MCV 92.3 MCH 30.1 MCHC 32.6 RDW 16.4 H Plt Count 141 MPV 11.5 Immature Gran % Seg Neutrophils % Lymphocytes % Monocytes % Eosinophils % Basophils % Neutrophils # Lymphocytes # Monocytes # Eosinophils # Basophils # Nucleated RBCs/100 WBC Hypersegmented Neuts Platelet Estimate Polychromasia Hypochromasia PT 11.2 INR 1.0 APTT 25.1 L Heparin Anti-Xa, Unfract Sodium Potassium Chloride Carbon Dioxide BUN Creatinine Est GFR ( Amer) Est GFR (Non-Af Amer) BUN/Creatinine Ratio Glucose POC Glucose 233 H Calculated Osmolality Calcium Stool Occult Blood A. baumannii (PCR) Jenna albicans (PCR) C. glabrata (PCR) C. krusei (PCR) C. parapsilosis (PCR) C. tropicalis (PCR) Enterobacteriac sp PCR E. cloacae complex PCR Enterococcus sp PCR E. coli (PCR) H. influenzae (PCR) Klebsiella oxytoca PCR Klebsiella pneumoniae List. monocytogenes PCR N. meningitidis (PCR) Proteus species (PCR) Serratia marcescens PCR Staphylococcus sp PCR Staph aureus (PCR) mecA-Methicil Res Gene Streptococcus sp PCR Group A Strep DNA Group B Strep (PCR) Strep pneumoniae (PCR) P. aeruginosa (PCR) Peter/B-Vanco Res Genes KPC (blaKPC) Detect PCR Specimen Rejected 10/10/16 10/11/16 10/11/16 21:00 03:41 03:41 WBC 4.2 L RBC 2.76 L Hgb 8.2 L Hct 25.4 L MCV 92.0 MCH 29.7 MCHC 32.3 RDW 16.2 H Plt Count 154 MPV 11.3 Immature Gran % 10.6 H Seg Neutrophils % 71.8 Lymphocytes % 8.0 Monocytes % 9.4 Eosinophils % 0.0 Basophils % 0.2 Neutrophils # 3.0 Lymphocytes # 0.3 L Monocytes # 0.4 Eosinophils # 0.0 Basophils # 0.0 Nucleated RBCs/100 WBC 0.5 H Hypersegmented Neuts Present A Platelet Estimate Normal Polychromasia 1+ A Hypochromasia Present A PT INR APTT Heparin Anti-Xa, Unfract Sodium 136 Potassium 3.8 Chloride 99 Carbon Dioxide 27 BUN 30 H Creatinine 1.42 H Est GFR ( Amer) 46 L Est GFR (Non-Af Amer) 38 L BUN/Creatinine Ratio 21 Glucose 299 H POC Glucose 322 H Calculated Osmolality 299 Calcium 9.1 Stool Occult Blood A. baumannii (PCR) Jenna albicans (PCR) C. glabrata (PCR) C. krusei (PCR) C. parapsilosis (PCR) C. tropicalis (PCR) Enterobacteriac sp PCR E. cloacae complex PCR Enterococcus sp PCR E. coli (PCR) H. influenzae (PCR) Klebsiella oxytoca PCR Klebsiella pneumoniae List. monocytogenes PCR N. meningitidis (PCR) Proteus species (PCR) Serratia marcescens PCR Staphylococcus sp PCR Staph aureus (PCR) mecA-Methicil Res Gene Streptococcus sp PCR Group A Strep DNA Group B Strep (PCR) Strep pneumoniae (PCR) P. aeruginosa (PCR) Peter/B-Vanco Res Genes KPC (blaKPC) Detect PCR Specimen Rejected 10/11/16 10/11/16 10/11/16 05:00 05:12 08:01 WBC RBC Hgb Hct MCV MCH MCHC RDW Plt Count MPV Immature Gran % Seg Neutrophils % Lymphocytes % Monocytes % Eosinophils % Basophils % Neutrophils # Lymphocytes # Monocytes # Eosinophils # Basophils # Nucleated RBCs/100 WBC Hypersegmented Neuts Platelet Estimate Polychromasia Hypochromasia PT INR APTT > 360.0 H* D Heparin Anti-Xa, Unfract 1.86 H* Sodium Potassium Chloride Carbon Dioxide BUN Creatinine Est GFR ( Amer) Est GFR (Non-Af Amer) BUN/Creatinine Ratio Glucose POC Glucose 231 H Calculated Osmolality Calcium Stool Occult Blood A. baumannii (PCR) Jenna albicans (PCR) C. glabrata (PCR) C. krusei (PCR) C. parapsilosis (PCR) C. tropicalis (PCR) Enterobacteriac sp PCR E. cloacae complex PCR Enterococcus sp PCR E. coli (PCR) H. influenzae (PCR) Klebsiella oxytoca PCR Klebsiella pneumoniae List. monocytogenes PCR N. meningitidis (PCR) Proteus species (PCR) Serratia marcescens PCR Staphylococcus sp PCR Staph aureus (PCR) mecA-Methicil Res Gene Streptococcus sp PCR Group A Strep DNA Group B Strep (PCR) Strep pneumoniae (PCR) P. aeruginosa (PCR) Peter/B-Vanco Res Genes KPC (blaKPC) Detect PCR Specimen Rejected Contaminated 10/11/16 10/11/16 10:38 10:57 WBC RBC Hgb Hct MCV MCH MCHC RDW Plt Count MPV Immature Gran % Seg Neutrophils % Lymphocytes % Monocytes % Eosinophils % Basophils % Neutrophils # Lymphocytes # Monocytes # Eosinophils # Basophils # Nucleated RBCs/100 WBC Hypersegmented Neuts Platelet Estimate Polychromasia Hypochromasia PT INR APTT 100.7 H D Heparin Anti-Xa, Unfract Sodium Potassium Chloride Carbon Dioxide BUN Creatinine Est GFR ( Amer) Est GFR (Non-Af Amer) BUN/Creatinine Ratio Glucose POC Glucose 330 H Calculated Osmolality Calcium Stool Occult Blood A. baumannii (PCR) Jenna albicans (PCR) C. glabrata (PCR) C. krusei (PCR) C. parapsilosis (PCR) C. tropicalis (PCR) Enterobacteriac sp PCR E. cloacae complex PCR Enterococcus sp PCR E. coli (PCR) H. influenzae (PCR) Klebsiella oxytoca PCR Klebsiella pneumoniae List. monocytogenes PCR N. meningitidis (PCR) Proteus species (PCR) Serratia marcescens PCR Staphylococcus sp PCR Staph aureus (PCR) mecA-Methicil Res Gene Streptococcus sp PCR Group A Strep DNA Group B Strep (PCR) Strep pneumoniae (PCR) P. aeruginosa (PCR) Peter/B-Vanco Res Genes KPC (blaKPC) Detect PCR Specimen Rejected Cultures: Cultures 10/09/16 16:06 Blood Culture - Preliminary Peripheral Venipuncture Gram Positive Cocci 10/09/16 16:06 Blood Culture - Preliminary Peripheral Venipuncture No growth. 10/08/16 10:00 Wound Culture - Final Left Foot Pseudomonas aeruginosa 10/08/16 10:00 Wound Culture - Final Right Leg Pseudomonas aeruginosa Serology 10/10/16 10/09/16 Range/Units 08:06 16:06 Stool Occult Blood Positive A (Negative) A. baumannii (PCR) Not Detected (Not Detect) Jenna albicans (PCR) Not Detected (Not Detect) C. glabrata (PCR) Not Detected (Not Detect) C. krusei (PCR) Not Detected (Not Detect) C. parapsilosis (PCR) Not Detected (Not Detect) C. tropicalis (PCR) Not Detected (Not Detect) Enterobacteriac sp PCR Not Detected (Not Detect) E. cloacae complex PCR Not Detected (Not Detect) Enterococcus sp PCR DETECTED A (Not Detect) E. coli (PCR) Not Detected (Not Detect) H. influenzae (PCR) Not Detected (Not Detect) Klebsiella oxytoca PCR Not Detected (Not Detect) Klebsiella pneumoniae Not Detected (Not Detect) List. monocytogenes PCR Not Detected (Not Detect) N. meningitidis (PCR) Not Detected (Not Detect) Proteus species (PCR) Not Detected (Not Detect) Serratia marcescens PCR Not Detected (Not Detect) Staphylococcus sp PCR Not Detected (Not Detect) Staph aureus (PCR) Not Detected (Not Detect) mecA-Methicil Res Gene Not Detected (Not Detect) Streptococcus sp PCR Not Detected (Not Detect) Group A Strep DNA Not Detected (Not Detect) Group B Strep (PCR) Not Detected (Not Detect) Strep pneumoniae (PCR) Not Detected (Not Detect) P. aeruginosa (PCR) Not Detected (Not Detect) Peter/B-Vanco Res Genes DETECTED A (Not Detect) KPC (blaKPC) Detect PCR Not Detected (Not Detect) - Impressions Impressions Abdomen/Pelvis CT 10/10/16 16:30 IMPRESSION: No acute intra-abdominal or intrapelvic abnormality on noncontrast exam. There is bilateral perinephric stranding with a small amount of stranding extending along both pericolic gutters, right greater than left. Cholelithiasis. D/ / Hilda Maddox MD / Hilda Maddox MD Interpreting Provider: Hilda Maddox MD Exam - Constitutional Vitals: Temp Pulse Resp BP Pulse Ox 98.1 F 75 16 133/57 91 10/11/16 10:56 10/11/16 10:56 10/11/16 10:56 10/11/16 10:56 10/11/16 10:56 General appearance: no acute distress - Neck Neck exam: Present: full ROM. Absent: meningismus - Respiratory Respiratory exam: Present: CTAB. Absent: wheezes - Cardiovascular Cardiovascular exam: Present: RRR, +S1, +S2 - GI/Abdominal GI/Abdominal exam: Present: normal bowel sounds, soft. Absent: tenderness Consult Discharge Plan - Plan Referrals: Jakob Chen MD [Primary Care Provider] - (web request 10/09/2016) Vic Bernal MD [Partnered Physician] - 10/23/16 10:00 am (New Consult Appt)
[2016-10-11] MEDS: *HR* Warfarin 5 MG TABLET PO SCH (17:19)
[2016-10-11] MEDS: Fenofibrate 54 MG TABLET PO SCH (17:19)
--- NOTE | 2016-10-11 17:56 | Vascular/Endovas Progress Note ---
Date of Encounter: 10/11/16 Time of Encounter: 12:10 - Assessment and plan (1) Atherosclerosis of arteries of extremities Status: Chronic The patient has a history of VRE sepsis. She then developed E.Coli right lower extremity fasciitis. She was treated with fasciotomy. Her symptoms improved but she developed an ulcer on the dorsum of her right foot and a ulcer at the midportion of her medial calf incision. SHe has been treating the wounds with local wound care and Santyl ointment. She recently developed increased pain and swelling and was admitted. She was treated with antibiotics and reports that she is feeling better today. Her clinical exam reveals no evidence of limb threatening acute ischemia. Her ABIs are consistent with moderate disease bilaterally. There is no indication for acute intervention. An angiogram is currently contraindicated due to her sepsis and a CTA is contraindicated due to her kidney disease. Continue with local wound care and antibiotics. She may ultimately require an angiogram after the resolution of her acute illness. (2) Anemia Status: Acute Qualifiers: Anemia type: other cause Other causes of anemia: chronic disease, other Qualified Code(s): D63.8 - Anemia in other chronic diseases classified elsewhere (3) Atrial fibrillation Status: Chronic Qualifiers: Atrial fibrillation type: chronic Qualified Code(s): I48.2 - Chronic atrial fibrillation (4) Chronic kidney disease, stage 3 Status: Chronic (5) Hyperlipidemia Status: Chronic Qualifiers: Hyperlipidemia type: pure hypercholesterolemia Qualified Code(s): E78.00 - Pure hypercholesterolemia, unspecified; E78.0 - Pure hypercholesterolemia (6) Hypertension Status: Chronic Qualifiers: Hypertension type: essential hypertension Qualified Code(s): I10 - Essential (primary) hypertension - Subjective Interval history: The patient reports that her right leg continues to feel better today. She denies any rest pain. She denies fevers or chills. She denies chest pain or shortness of breath. - Physical Examination General: Present: Conversant HEENT: Present: Pupils equal Cardiac: Present: Irregular Rhythm Lungs: Present: Normal Breath Sounds Neuro: Present: Alert and responsive, No focal deficits noted Vascular: Present: Normal capillary refill, Color/Temperature (warm), Other ( right pedal signals biphasic, left pedal signals polyphasic). Absent: Cyanosis Abdomen: Present: Soft Skin: Present: Wound/ulcer(s) (wound margins viable, minimal erythema) Results 10/16/16 04:50 10/16/16 04:50 Lab Results, Last 24 hours 10/10/16 10/10/16 10/11/16 20:05 20:05 03:41 WBC 3.9 L 4.2 L Hgb 7.8 L 8.2 L Hct 23.9 L 25.4 L Plt Count 141 154 INR 1.0 APTT 25.1 L Sodium Potassium Chloride Carbon Dioxide BUN Creatinine Glucose Calcium 10/11/16 10/11/16 10/11/16 03:41 05:12 10:57 WBC Hgb Hct Plt Count INR APTT > 360.0 H* D 100.7 H D Sodium 136 Potassium 3.8 Chloride 99 Carbon Dioxide 27 BUN 30 H Creatinine 1.42 H Glucose 299 H Calcium 9.1 10/11/16 17:17 WBC Hgb Hct Plt Count INR APTT 78.3 H Sodium Potassium Chloride Carbon Dioxide BUN Creatinine Glucose Calcium - Imaging / Other Tests Non Invasive Vascular Testing: report reviewed, image reviewed Consult Discharge Plan - Plan Instructions: Cellulitis (DC), Epistaxis (DC) Additional Instructions: Continue to use Bactroban ointment in front of your nose three times daily after discharge for a total of one month. Follow up with PCP to have sutures removed on 10/23 by PCP Patient declined INR clinic and prefers to have PCP to dose warfarin. Blood sugars were uncontrolled during hospitalization. PCP to adjust diabetic medications in outpatient. Patient sent home on increased hospitalization dose of 40 mg in AM and 35 mg in PM. Continue outpatient infusion of daptomycin for 2 weeks and follow up with ID during that time. Referrals: Vincenzo Reyes DO [Partnered Physician] - (Please call ENT office for followup after discharge if needed for continued nose bleeds. ) Ana Wadsworth CNP [Advanced Practice Nurse] - 10/30/16 9:30 am Vic Bernal MD [Partnered Physician] - 10/23/16 10:00 am (New Consult Appt) Prescriptions: Commode - Three In One [THREE IN ONE COMMODE] 1 each .ROUTE PRN PRN #1 each PRN Reason: Fatigue DAPTOmycin [Cubicin] 500 mg IV Q24H #14 vial Insulin LISPRO [HumaLOG] 15 units SQ TIDWM #2 vial Walker [WALKER] 1 each .ROUTE AD #1 each
[2016-10-11] MEDS ORDERED: Warfarin perPT PO PRN (18:00)
[2016-10-12] MEDS: Heparin 25,000 UNIT/500 ML D5W 25,000 UNIT/500 ML MLS IVC SCH (01:33)
[2016-10-12 05:16] LABS: Hemoglobin 7.8 g/dL (11.5-15.4); Mean Corpuscular HGB Conc 31.2 g/dL (31.6-35.5); Mean Corpuscular Hemoglobin 28.8 pg (28.0-33.3); Mean Corpuscular Volume 92.3 fL (83.0-100.0); Platelet Count 180 K/mcL (140-400); Red Blood Count 2.71 M/mcL (3.82-4.97); Red Cell Distribution Width 16.3 % (11.5-14.5)
[2016-10-12 05:31] LABS: Calcium 9.4 mg/dL (8.6-10.8); Potassium 3.8 mEq/L (3.5-4.5)
[2016-10-12 05:35] LABS: INR 1.1; Prothrombin Time 11.6 Seconds (9.4-12.1)
[2016-10-12] MEDS: Insulin LISPRO 300 UNITS/3 ML VIAL SQ SCH ×7 (08:21→22:16)
[2016-10-12] MEDS: predniSONE 10 MG TABLET PO SCH (08:22)
[2016-10-12] MEDS: FLUoxetine 20 MG CAPSULE PO SCH (08:22)
[2016-10-12] MEDS: Folic Acid 1 MG TABLET PO SCH (08:22)
[2016-10-12] MEDS: Diltiazem CD (24hr) 240 MG CAPSULE PO SCH (08:22)
[2016-10-12] MEDS: Cholecalciferol (D-3) 1,000 UNIT TABLET PO SCH (08:22)
[2016-10-12] MEDS: Furosemide 40 MG TABLET PO SCH ×2 (08:23→17:27)
[2016-10-12] MEDS: Aspirin Enteric Coated 81 MG Tablet PO SCH (08:23)
[2016-10-12] MEDS: *HR* HYDROcodone/Acet 5/325 mg TABLET PO PRN ×2 (08:23→17:26)
--- NOTE | 2016-10-12 08:25 | Internal Med Progress Note ---
<Orville Pryor - Last Filed: 10/12/16 13:15> Date of Encounter: 10/12/16 Time of Encounter: 08:23 - Assessment and plan (1) Thrombosis Current Visit: Yes Status: Acute Assessment and plan: Thrombis seen in Right common femoral vein on LE arterial duplex - Continue IV heparin bridge to warfarin until therapeutic. (2) Gram-positive cocci bacteremia Current Visit: Yes Status: Acute Assessment and plan: continue Cefepime IV. ID following. - KEM ordered (3) Gram-negative bacterial infection Current Visit: Yes Status: Acute Assessment and plan: Zyvox was D/C'ed because bacterial static. continue Daptomycin. ID following (4) Cellulitis Current Visit: Yes Status: Acute Assessment and plan: wound tested positive for pseudomonas. covered by cefepime. continue current abx course. Qualifiers: Site of cellulitis: extremity Site of cellulitis of extremity: lower extremity Laterality: right Qualified Code(s): L03.115 - Cellulitis of right lower limb (5) Sepsis Current Visit: Yes Status: Acute Assessment and plan: Today - HR80, wbc 4.1 HR 80, RR 16. continue daptomycin and Cefepime. Qualifiers: Sepsis type: Streptococcus, other Qualified Code(s): A40.8 - Other streptococcal sepsis (6) GERD (gastroesophageal reflux disease) Current Visit: Yes Status: Chronic Assessment and plan: Ct PPI PO 20 mg. Qualifiers: Esophagitis presence: esophagitis presence not specified Qualified Code(s) : K21.9 - Gastro-esophageal reflux disease without esophagitis (7) Diabetes mellitus type 2, uncontrolled Current Visit: Yes Status: Chronic Assessment and plan: continue blood glucose before meals and at bedtime. continue levemir and SSI Qualifiers: Diabetes mellitus complication status: with neurologic complications Diabetes mellitus complication detail: with unspecified neuropathy Diabetes mellitus usp insulin use: with long line teamster use Qualified Code(s): E11.40 - Type 2 diabetes mellitus with diabetic neuropathy, unspecified; E11.65 - Type 2 diabetes mellitus with hyperglycemia; Z79.4 - shelter (current) use of insulin (8) Hyperlipidemia Current Visit: Yes Status: Chronic Assessment and plan: Ct crestor Qualifiers: Hyperlipidemia type: pure hypercholesterolemia Qualified Code(s): E78.00 - Pure hypercholesterolemia, unspecified; E78.0 - Pure hypercholesterolemia (9) Hypertension Current Visit: Yes Status: Chronic Assessment and plan: ct norvasc, lopressor, cozar Qualifiers: Hypertension type: essential hypertension Qualified Code(s): I10 - Essential (primary) hypertension (10) DVT prophylaxis Current Visit: Yes Status: Acute Assessment and plan: ct heparin (11) Chronic kidney disease, stage 3 Current Visit: Yes Status: Chronic Assessment and plan: Strict I+O, and weights (12) Atrial fibrillation with RVR Current Visit: Yes Status: Chronic Assessment and plan: ct telemetry. repeat EKG pending. - Subjective Interval history: 61 yo F on day 4 admitted for Sepsis and chronic right lower leg cellulitis with a newly discovered thrombosis. Denies SOB last night. no new complaints today. she continues to feel constantly tired. continues to deny n/v/c/diarrhea. - Constitutional Vitals: Temp Pulse Resp BP Pulse Ox 98.2 F 80 16 148/65 96 10/12/16 07:01 10/12/16 07:01 10/12/16 07:01 10/12/16 07:01 10/12/16 07:01 General appearance: Present: cooperative, A&O X 3, pleasant, no acute distress, obese, answers questions appropriately - Respiratory Respiratory exam: Present: CTAB. Absent: accessory muscle use, rales, rhonchi, wheezes - Cardiovascular Cardiovascular exam: Present: RRR, +S1, +S2. Absent: diastolic murmur, gallop, rubs, systolic murmur - GI/Abdominal GI/Abdominal exam: Present: normal bowel sounds, soft, no peritoneal signs. Absent: distended, tenderness Internal Medicine: Result - Labs CBC & Chem 7: 10/12/16 04:19 10/12/16 04:19 Labs: Short CBC 10/12/16 Range/Units 04:19 WBC 4.1 L (4.3-11.1) K/mcL Hgb 7.8 L (11.5-15.4) g/dL Hct 25.0 L (35.3-44.9) % Plt Count 180 (140-400) K/mcL BMP 10/12/16 04:19 Sodium 137 Potassium 3.8 Chloride 97 L Carbon Dioxide 30 H BUN 31 H Creatinine 1.31 H Glucose 240 H Calcium 9.4 - ABG Interpretation ABG results: PT/INR, D-dimer PT 11.6 Seconds (9.4-12.1) 10/12/16 04:19 Consult Discharge Plan - Plan Referrals: Vic Bernal MD [Partnered Physician] - 10/23/16 10:00 am (New Consult Appt) <Adal Smith - Last Filed: 10/12/16 16:43> Date of Encounter: 10/12/16 - Assessment and plan (1) DVT (deep venous thrombosis) Current Visit: Yes Status: Acute Qualifiers: DVT location: lower extremity Affected thrombotic vein of extremity: femoral Chronicity: acute Laterality: left Qualified Code(s): I82.412 - Acute embolism and thrombosis of left femoral vein - Constitutional Vitals: Temp Pulse Resp BP Pulse Ox 98.1 F 74 16 152/68 97 10/12/16 11:18 10/12/16 11:18 10/12/16 11:18 10/12/16 11:18 10/12/16 11:18 Internal Medicine: Result - Labs CBC & Chem 7: 10/12/16 04:19 10/12/16 04:19 Labs: Short CBC 10/12/16 Range/Units 04:19 WBC 4.1 L (4.3-11.1) K/mcL Hgb 7.8 L (11.5-15.4) g/dL Hct 25.0 L (35.3-44.9) % Plt Count 180 (140-400) K/mcL BMP 10/12/16 04:19 Sodium 137 Potassium 3.8 Chloride 97 L Carbon Dioxide 30 H BUN 31 H Creatinine 1.31 H Glucose 240 H Calcium 9.4 - ABG Interpretation ABG results: PT/INR, D-dimer PT 11.6 Seconds (9.4-12.1) 10/12/16 04:19 - Attending Attestation I examined this patient and my medical decision-making was reviewed with the Resident Physician on 10/11/16. I agree with the documented findings, disposition and treatment plan as described except to the extent set forth below. 61 F being managed for RLE infected wound with pseudomonas, VRE bacteremia, Sepsis secondary to chronic LE wound infection and bacteremia She also has a PMH of RA, Chronic steroid therapy, Afib, ANCA vasculitis She denies new complains Her abdomen and pelvis imaging with po contrast done 10/10 showed perinephric stranding. Venous doppler showed a mobile L femoral vein thrombus, patient has been started on heparin Her YASSINE showed moderate disease No intervention per vascular Last febrile episode was 10/09 100.6 0327 Blood cultures from 10/09 +ve VRE in both bottles KEM has been scheduled this morning, Infectious disease is following She denies new complains today but stated her Left hand dorsal surface wound is non-healing, she had a biopsy done from there by her perfume maker Her epistaxis resolved Physical exam: VSS not in distress, CTAB, HS S!, S2 , Irregular, Abdomen is benign, L hand with ~2cm wound, underlying fascia visible, does not look infected, RLE with ~5cm deep right foot dosal surface wound with purulent slough , R leg medial surface wound, with slough, extremities are pink and perfused Labs and Imaging reviewed Plan; Persistent bacteremia-Per ID, continue current management. Follow blood cultures. L hand wound: Suture to be placed today. Continue current care, monitor CK Patient is net positive fluid balance due to contrast exposure, continue lasix, renal function is stable, continue to monitor She has no OM per imaging from [facility] and here. Continue renally dosed Cefepime KEM scheduled for persistent bactermia, KEM done in previous admission was negative. Rest of details as in resident physician's documentation High risk patient due to ongoing diagnoses, persistent bacteremia and use of heparin drip
[2016-10-12] MEDS ORDERED: Insulin DETEMIR 100 UNIT/ML X5UNITS SQ SCH (09:00)
[2016-10-12] MEDS: Cefepime HCl 2,000 MG in D5% in Water (Mini-Bag+) 100 ML IVPB SCH ×2 (11:40→23:40)
[2016-10-12] MEDS ORDERED: DAPTOmycin 650 MG in 0.9 % Sodium Chloride 100 ML IVPB SCH (11:53)
[2016-10-12] MEDS: DAPTOmycin 500 MG in 0.9 % Sodium Chloride 100 ML IVPB SCH ×2 (12:34→12:35)
[2016-10-12] MEDS ORDERED: Lidocaine 1% 20 ML MDV ID ONE (15:27)
--- NOTE | 2016-10-12 15:28 | Electrocardiograph Report ---
[place] [id number] Test Date: 2016-10-11 Pat Name: Norah Graham Department: 112 Room: 2A32 Gender: F Director Career Services: MELISSA : 1955 Requested By: Adal Smith Order Number: [id number] Reading MD: Jaron Maurer Measurements Intervals [place] Rate: 66 P: NC: 0 QRS: 9 QRSD: 99 T: 149 QT: 421 QTc: 434 Interpretive Statements ATRIAL FIBRILLATION WITH ABERRANT CONDUCTION OR VENTRICULAR PREMATURE COMPLEXES ST DEVIATION AND MODERATE T-WAVE ABNORMALITY, CONSIDER LATERAL ISCHEMIA Electronically Signed On 10-12-2016 15:27:09 EDT by Jaron Maurer
--- NOTE | 2016-10-12 16:10 | Infectious Disease Progress No ---
Date of Encounter: 10/12/16 Time of Encounter: 16:08 - Assessment and Plan (1) Sepsis Current Visit: No Status: Acute The patient had three SIRS criteria on admission. Likely secondary to bacteremia. Improved. Bandemia has resolved. Continues to do well clinically. Blood cultures drawn 10/08/16 and 10/09/16 are positive 2/2 sets for VRE. Repeat cultures on 10/10/16 no growth to date Qualifiers: Sepsis type: sepsis due to unspecified organism Qualified Code(s): A41.9 - Sepsis, unspecified organism (2) Nonhealing surgical wound Current Visit: No Status: Acute Location: Right posteriomedial lower leg. Wound culture positive for PSEA. Sensitivities pending. Clinically, does not appear infected. MRI completed at [facility] 10/05/16 shows no evidence of osteomyelitis. CT of the lower extremity completed 10/08/16 shows a small fluid collection adjacent to the posteromedial calf wound, concerning for abscess. No active drainage or purulence noted. Clinically, the wound does not appear infected and there is no evidence of surrounding cellulitis. Consult wound care team for recommendation. Continue Cefepime 2 grams IV Q12H. Will de-escalate once we have sensitivities back. 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 transplanted heart: [place] heart Associated angina: without angina Qualified Code(s): I25.810 - Atherosclerosis of coronary artery bypass graft(s) without angina pectoris (10) Diabetes mellitus type 2, uncontrolled Current Visit: Yes Status: Chronic Qualifiers: Diabetes mellitus complication status: with neurologic complications Diabetes mellitus complication detail: with unspecified neuropathy Diabetes mellitus lobby concierge insulin use: with lobby concierge use Qualified Code(s): E11.40 - Type 2 diabetes mellitus with diabetic neuropathy, unspecified; E11.65 - Type 2 diabetes mellitus with hyperglycemia; Z79.4 - snf (current) use of insulin (11) VRE bacteremia Current Visit: Yes Status: Acute Source unclear: leg wounds/abscess unlikely source. Consider intra-abdominal source. 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 Uncomplicated. The patient has no indwelling hardware and no evidence of septic emboli. Blood cultures drawn 10/08/16 are positive 2/2 sets for VRE. Repeat blood cultures x [address] abdomen/pelvis noted (even tough without contrast) Continue daptomycin, but decrease dose to 6mg/kg. Baseline CK level checked and was normal. Check CK level weekly while on Daptomycin. Duration of treatment depends on the clinical picture. Monitor renal function and dose-adjust antibiotics. recommend KEM Discussed with pharmacy staff, I do not recommend increasing daptomycin, definitely do not recommend linezolid, continue current treatment for now and await repeat cultures to finalize and KEM results. - Subjective Interval history: Patient seen and examined. No fever in last 24 hours cultures reviewed labs noted doing well clinically, repeat cultures continue positive for VRE on 10/09 Repeat cultures on 10/11/2014 no growth to date. KEM has not been done yet. Asked the patient again she has no hardware in her body, no pacemaker, no artificial valves, Review of system including head and neck, pulmonary, abdominal, urinary, muscular skeletal, neurologic, all negative really other than her baseline dyspnea on exertion Infect Dis PN-Objective Data - Labs CBC & Chem 7: 10/12/16 04:19 10/12/16 04:19 Labs: Laboratory Results - last 24 hr 10/11/16 10/11/16 10/11/16 16:32 17:17 20:50 WBC RBC Hgb Hct MCV MCH MCHC RDW Plt Count MPV PT INR APTT 78.3 H Sodium Potassium Chloride Carbon Dioxide BUN Creatinine Est GFR ( Amer) Est GFR (Non-Af Amer) BUN/Creatinine Ratio Glucose POC Glucose 382 H 371 H Calculated Osmolality Calcium 10/11/16 10/12/16 10/12/16 23:06 04:19 04:19 WBC 4.1 L RBC 2.71 L Hgb 7.8 L Hct 25.0 L MCV 92.3 MCH 28.8 MCHC 31.2 L RDW 16.3 H Plt Count 180 MPV 11.0 PT INR APTT 75.9 H Sodium 137 Potassium 3.8 Chloride 97 L Carbon Dioxide 30 H BUN 31 H Creatinine 1.31 H Est GFR ( Amer) 50 L Est GFR (Non-Af Amer) 41 L BUN/Creatinine Ratio 24 Glucose 240 H POC Glucose Calculated Osmolality 298 Calcium 9.4 10/12/16 10/12/16 10/12/16 04:19 07:05 11:22 WBC RBC Hgb Hct MCV MCH MCHC RDW Plt Count MPV PT 11.6 INR 1.1 APTT Sodium Potassium Chloride Carbon Dioxide BUN Creatinine Est GFR ( Amer) Est GFR (Non-Af Amer) BUN/Creatinine Ratio Glucose POC Glucose 191 H 294 H Calculated Osmolality Calcium Cultures: Cultures 10/09/16 16:06 Blood Culture - Preliminary Peripheral Venipuncture Gram Positive Cocci 10/09/16 16:06 Blood Culture - Final Peripheral Venipuncture Vancomycin Resistant Enterococcus faecalis 10/08/16 10:00 Wound Culture - Final Left Foot Pseudomonas aeruginosa 10/08/16 10:00 Wound Culture - Final Right Leg Pseudomonas aeruginosa Serology 10/10/16 10/09/16 Range/Units 08:06 16:06 Stool Occult Blood Positive A (Negative) A. baumannii (PCR) Not Detected (Not Detect) Jenna albicans (PCR) Not Detected (Not Detect) C. glabrata (PCR) Not Detected (Not Detect) C. krusei (PCR) Not Detected (Not Detect) C. parapsilosis (PCR) Not Detected (Not Detect) C. tropicalis (PCR) Not Detected (Not Detect) Enterobacteriac sp PCR Not Detected (Not Detect) E. cloacae complex PCR Not Detected (Not Detect) Enterococcus sp PCR DETECTED A (Not Detect) E. coli (PCR) Not Detected (Not Detect) H. influenzae (PCR) Not Detected (Not Detect) Klebsiella oxytoca PCR Not Detected (Not Detect) Klebsiella pneumoniae Not Detected (Not Detect) List. monocytogenes PCR Not Detected (Not Detect) N. meningitidis (PCR) Not Detected (Not Detect) Proteus species (PCR) Not Detected (Not Detect) Serratia marcescens PCR Not Detected (Not Detect) Staphylococcus sp PCR Not Detected (Not Detect) Staph aureus (PCR) Not Detected (Not Detect) mecA-Methicil Res Gene Not Detected (Not Detect) Streptococcus sp PCR Not Detected (Not Detect) Group A Strep DNA Not Detected (Not Detect) Group B Strep (PCR) Not Detected (Not Detect) Strep pneumoniae (PCR) Not Detected (Not Detect) P. aeruginosa (PCR) Not Detected (Not Detect) Peter/B-Vanco Res Genes DETECTED A (Not Detect) KPC (blaKPC) Detect PCR Not Detected (Not Detect) Exam - Constitutional Vitals: Temp Pulse Resp BP Pulse Ox 98.1 F 74 16 152/68 97 10/12/16 11:18 10/12/16 11:18 10/12/16 11:18 10/12/16 11:18 10/12/16 11:18 General appearance: cooperative, no acute distress - Head Head exam: Present: atraumatic, normocephalic - Respiratory Respiratory exam: Present: CTAB. Absent: wheezes - Cardiovascular Cardiovascular exam: Present: RRR, +S1, +S2 - GI/Abdominal GI/Abdominal exam: Present: soft. Absent: tenderness - Extremities Exam Extremities exam: Present: normal inspection Additional comments: Right lower extremity surgically wrapped. Consult Discharge Plan - Plan Referrals: Vic Bernal MD [Partnered Physician] - 10/23/16 10:00 am (New Consult Appt)
[2016-10-12] MEDS: *HR* Warfarin 5 MG TABLET PO SCH (17:27)
[2016-10-12] MEDS: Fenofibrate 54 MG TABLET PO SCH (17:27)
[2016-10-12] MEDS: Insulin DETEMIR 100 UNIT/ML X5UNITS SQ SCH (17:45)
--- NOTE | 2016-10-12 23:10 | Vascular/Endovas Progress Note ---
Date of Encounter: 10/12/16 Time of Encounter: 15:45 - Assessment and plan (1) Atherosclerosis of arteries of extremities Current Visit: Yes Status: Acute The patient previously underwent a fasciotomy for compartment syndrome. She was found to have E.Coli right lower extremity fasciitis. She was treated with fasciotomy. Her symptoms improved but she developed an ulcer on the dorsum of her right foot and a ulcer at the midportion of her medial calf incision. She developed a cellulitis. She is feeling better since starting antibiotics. She has no evidence of limb threatening acute ischemia. Her ABIs are consistent with moderate disease bilaterally. Her arterial duplex revealed no significant stenosis in the distal iliac through tibial vessels. Continue with local wound care and antibiotics. - Subjective Interval history: The patient reports that her leg continues to feel better. She denies any fevers or chills. - Physical Examination General: Present: Conversant HEENT: Present: Pupils equal Cardiac: Present: Reg Rate and Rhythm Lungs: Present: Normal Breath Sounds Neuro: Present: Alert and responsive Vascular: Present: Normal capillary refill, Edema (trace). Absent: Cyanosis Abdomen: Present: Soft Skin: Present: Wound/ulcer(s) (margins viable, no erythema, minimal serous drainage, no fluctuance) Musculoskeletal: Present: No Chest Wall Tenderness Results 10/12/16 04:19 10/12/16 04:19 Lab Results, Last 24 hours 10/11/16 10/12/16 10/12/16 23:06 04:19 04:19 WBC 4.1 L Hgb 7.8 L Hct 25.0 L Plt Count 180 INR APTT 75.9 H Sodium 137 Potassium 3.8 Chloride 97 L Carbon Dioxide 30 H BUN 31 H Creatinine 1.31 H Glucose 240 H Calcium 9.4 10/12/16 04:19 WBC Hgb Hct Plt Count INR 1.1 APTT Sodium Potassium Chloride Carbon Dioxide BUN Creatinine Glucose Calcium Consult Discharge Plan - Plan Referrals: Vic Bernal MD [Partnered Physician] - 10/23/16 10:00 am (New Consult Appt)
[2016-10-12] MEDS: hydrOXYzine pamoate 25 MG CAPSULE PO PRN (23:40)
[2016-10-13 01:01] LABS: Hematocrit 25.5 % (35.3-44.9); Hemoglobin 8.2 g/dL (11.5-15.4); Mean Corpuscular HGB Conc 32.2 g/dL (31.6-35.5); Mean Corpuscular Volume 93.4 fL (83.0-100.0); Mean Platelet Volume 11.4 fL (9.4-12.4); Platelet Count 205 K/mcL (140-400); Red Blood Count 2.73 M/mcL (3.82-4.97); Red Cell Distribution Width 16.5 % (11.5-14.5)
[2016-10-13 01:08] LABS: INR 1.3; Prothrombin Time 14.6 Seconds (9.4-12.1)
[2016-10-13 01:13] LABS: Calcium 9.8 mg/dL (8.6-10.8); Potassium 3.7 mEq/L (3.5-4.5)
--- NOTE | 2016-10-13 08:16 | Internal Med Progress Note ---
<KonstantinOrville - Last Filed: 10/13/16 08:07> Date of Encounter: 10/13/16 Time of Encounter: 08:08 - Assessment and plan (1) Thrombosis Current Visit: Yes Status: Acute Assessment and plan: Thrombis seen in Right common femoral vein on LE arterial duplex - Continue IV heparin bridge to warfarin until therapeutic. (2) Gram-positive cocci bacteremia Current Visit: Yes Status: Acute Assessment and plan: continue Cefepime IV. ID following. (3) Gram-negative bacterial infection Current Visit: Yes Status: Acute Assessment and plan: Zyvox was D/C'ed because bacterial static. - continue Daptomycin. - ID following - KEM today to evaluate for valvular infection - cultures remain to grow bacteria. (4) Cellulitis Current Visit: Yes Status: Acute Assessment and plan: wound tested positive for pseudomonas. covered by cefepime. continue current abx course. Qualifiers: Site of cellulitis: extremity Site of cellulitis of extremity: lower extremity Laterality: right Qualified Code(s): L03.115 - Cellulitis of right lower limb (5) Sepsis Current Visit: Yes Status: Acute Assessment and plan: 0/4 SIRS: Today - HR 73, RR 19, WBC 4.9, T98.1. - continue daptomycin and Cefepime. Qualifiers: Sepsis type: Streptococcus, other Qualified Code(s): A40.8 - Other streptococcal sepsis (6) GERD (gastroesophageal reflux disease) Current Visit: Yes Status: Chronic Qualifiers: Esophagitis presence: esophagitis presence not specified Qualified Code(s) : K21.9 - Gastro-esophageal reflux disease without esophagitis (7) Diabetes mellitus type 2, uncontrolled Current Visit: Yes Status: Chronic Qualifiers: Diabetes mellitus complication status: with neurologic complications Diabetes mellitus complication detail: with unspecified neuropathy Diabetes mellitus residential insulin use: with residential use Qualified Code(s): E11.40 - Type 2 diabetes mellitus with diabetic neuropathy, unspecified; E11.65 - Type 2 diabetes mellitus with hyperglycemia; Z79.4 - USP (current) use of insulin (8) Hyperlipidemia Current Visit: Yes Status: Chronic Qualifiers: Hyperlipidemia type: pure hypercholesterolemia Qualified Code(s): E78.00 - Pure hypercholesterolemia, unspecified; E78.0 - Pure hypercholesterolemia (9) Hypertension Current Visit: Yes Status: Chronic Qualifiers: Hypertension type: essential hypertension Qualified Code(s): I10 - Essential (primary) hypertension (10) DVT prophylaxis Current Visit: Yes Status: Acute (11) Chronic kidney disease, stage 3 Current Visit: Yes Status: Chronic (12) Atrial fibrillation with RVR Current Visit: Yes Status: Chronic (13) Open wound, hand Current Visit: Yes Status: Acute Assessment and plan: non-healing wound on left hand dorsal surface. - 2 sutures placed on 10/12/16 5 nylon non-absorbable. Qualifiers: Qualified Code(s): S61.401A - Unspecified open wound of right hand, initial encounter - Subjective Interval history: 61 yo F on day 4 admitted for Sepsis and chronic right lower leg cellulitis with a newly discovered thrombosis. Denies SOB last night. She was unable to fall asleep last night, she thinks it was because of the caffeinated tea she had last night. no new complaints today. she does not report feeling tired today. continues to deny n/v/c/diarrhea. - Constitutional Vitals: Temp Pulse Resp BP Pulse Ox 98.1 F 73 19 135/60 92 10/13/16 07:49 10/13/16 07:49 10/13/16 07:49 10/13/16 07:49 10/13/16 07:49 General appearance: Present: cooperative, A&O X 3, pleasant, no acute distress, obese, answers questions appropriately - Head Head exam: Present: atraumatic, normocephalic - Respiratory Respiratory exam: Present: CTAB. Absent: accessory muscle use, rales, rhonchi, wheezes - Cardiovascular Cardiovascular exam: Present: RRR, +S1, +S2. Absent: diastolic murmur, gallop, rubs, systolic murmur - GI/Abdominal GI/Abdominal exam: Present: normal bowel sounds - Neurological Exam Neurological exam: Present: alert, oriented X3 Internal Medicine: Result - Labs CBC & Chem 7: 10/13/16 00:32 10/13/16 00:32 Labs: Short CBC 10/13/16 Range/Units 00:32 WBC 4.9 (4.3-11.1) K/mcL Hgb 8.2 L (11.5-15.4) g/dL Hct 25.5 L (35.3-44.9) % Plt Count 205 (140-400) K/mcL BMP 08/11/17 00:32 Sodium 137 Potassium 3.7 Chloride 95 L Carbon Dioxide 31 H BUN 32 H Creatinine 1.46 H Glucose 272 H Calcium 9.8 - ABG Interpretation ABG results: PT/INR, D-dimer PT 14.6 Seconds (9.4-12.1) H 10/13/16 00:32 Consult Discharge Plan - Plan Referrals: Vic Bernal MD [Partnered Physician] - 10/23/16 10:00 am (New Consult Appt) <PrestonAnisha gormanAdal T - Last Filed: 10/13/16 14:48> Date of Encounter: 10/13/16 - Assessment and plan (1) DVT (deep venous thrombosis) Current Visit: Yes Status: Acute Qualifiers: DVT location: lower extremity Affected thrombotic vein of extremity: femoral Chronicity: acute Laterality: left Qualified Code(s): I82.412 - Acute embolism and thrombosis of left femoral vein - Constitutional Vitals: Temp Pulse Resp BP Pulse Ox 97.7 F 69 18 158/91 96 10/13/16 13:27 10/13/16 13:27 10/13/16 13:27 10/13/16 13:27 10/13/16 13:27 Internal Medicine: Result - Labs CBC & Chem 7: 10/13/16 00:32 10/13/16 00:32 Labs: Short CBC 10/13/16 Range/Units 00:32 WBC 4.9 (4.3-11.1) K/mcL Hgb 8.2 L (11.5-15.4) g/dL Hct 25.5 L (35.3-44.9) % Plt Count 205 (140-400) K/mcL BMP 10/13/16 00:32 Sodium 137 Potassium 3.7 Chloride 95 L Carbon Dioxide 31 H BUN 32 H Creatinine 1.46 H Glucose 272 H Calcium 9.8 - ABG Interpretation ABG results: PT/INR, D-dimer PT 14.6 Seconds (9.4-12.1) H 10/13/16 00:32 - Attending Attestation I examined this patient and my medical decision-making was reviewed with the Resident Physician on 10/13/16. I agree with the documented findings, disposition and treatment plan as described except to the extent set forth below. 61 F being managed for RLE infected wound with pseudomonas, VRE bacteremia, Sepsis secondary to chronic LE wound infection and bacteremia She also has a PMH of RA, Chronic steroid therapy, Afib, ANCA vasculitis Her abdomen and pelvis imaging with po contrast done 10/10 showed perinephric stranding. Venous doppler showed a mobile L femoral vein thrombus, patient has been started on heparin and bridging with coumadin Her YASSINE showed moderate disease No intervention per vascular Vascular surgery and Infectious disease are actively following Last febrile episode was 10/09 100.6 0327 Blood cultures from 10/09 +ve VRE in both bottles Blood cultures from 10/11 preliminary negative X2 KEM this morning with no vegetations preliminarily, awaiting official report She has no new complains this morning Physical exam: VSS not in distress, CTAB, HS S!, S2 , Irregular, Abdomen is benign, L hand wound sutured, underlying fascia visible, does not look infected , RLE with ~5cm deep right foot dosal surface wound with purulent slough, R leg medial surface wound, with slough, extremities are pink and perfused Labs and Imaging reviewed-Stable hb, renal function stable, INR 1.3 Plan; VRE bacteremia-Continue current management. Blood culture from 10/11 prelim negative L hand wound: intact sutures, no signs of infection Continue current care, monitor CK RLE pseudomonas wound infection-Continue renally dosed Cefepime INR today 1.3, continue heparin and Warfarin Rest of details as in resident physician's documentation High risk patient due to ongoing diagnoses, persistent bacteremia and use of heparin drip
--- NOTE | 2016-10-13 08:39 | Procedure Note ---
Date of procedure: 10/12/16 (performed by Resident, Dr. Orville Pryor) Pre-op diagnosis: non-healing wound on dorsal surface of left hand Procedure: 2 nylon [address] in left dorsal surface of hand. non-infectious appearing Anesthesia: local (lidocaine 1%) Estimated blood loss (cc): 0 IV fluids (cc): 0 Pathology: none sent Condition: stable Disposition: floor
[2016-10-13] MEDS ORDERED: Insulin DETEMIR 100 UNIT/ML X5UNITS SQ SCH (09:00)
[2016-10-13] MEDS: Insulin LISPRO 300 UNITS/3 ML VIAL SQ SCH ×7 (09:01→22:38)
[2016-10-13] MEDS: Cefepime HCl 2,000 MG in D5% in Water (Mini-Bag+) 100 ML IVPB SCH ×2 (10:28→22:38)
[2016-10-13] MEDS: Heparin 25,000 UNIT/500 ML D5W 25,000 UNIT/500 ML MLS IVC SCH (11:11)
[2016-10-13] MEDS ORDERED: *HR* FentaNYL (PF) 100 MCG/2 ML VIAL IVP PRN (11:28)
[2016-10-13] MEDS ORDERED: 0.9 % Sodium Chloride 500 ML IVC ONE (11:28)
[2016-10-13] MEDS ORDERED: Tetracaine/Benzocaine/Butamben 200MG/SPRAY (100SPY/BOT) MM ONE (11:28)
[2016-10-13] MEDS ORDERED: *HR* Midazolam HCl 5 MG/5 ML VIAL IVP PRN (11:28)
--- NOTE | 2016-10-13 13:43 | Infectious Disease Progress No ---
Date of Encounter: 10/13/16 Time of Encounter: 13:41 - Assessment and Plan (1) Sepsis Current Visit: No Status: Acute The patient had three SIRS criteria on admission. Likely secondary to bacteremia. Improved. Bandemia has resolved. Continues to do well clinically. Blood cultures drawn 10/08/16 and 10/09/16 are positive 2/2 sets for VRE. Repeat cultures on 10/10/16 are positive 2/2 sets for VRE. Additional blood cultures drawn 10/11/16 are NGTD currently. Qualifiers: Sepsis type: sepsis due to unspecified organism Qualified Code(s): A41.9 - Sepsis, unspecified organism (2) Bacteremia Current Visit: No Status: Acute Causative organism VRE. Source unclear. 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 Uncomplicated. The patient has no indwelling hardware and no evidence of septic emboli. Blood cultures drawn 10/08/16 are positive 2/2 sets for VRE. Repeat blood cultures drawn 10/09/16 are positive 2/2 sets. Additional blood cultures drawn 10/11/16 are NGTD. KEM completed this morning. Awaiting final report. CT of the abdomen and pelvis negative for source of bacteremia. Continue daptomycin 6mg/kg IV daily. Based in clinical picture, would not advise increasing dose or switching to linezolid. Check CK level weekly while on Daptomycin. Duration of treatment depends on the clinical picture. Monitor renal function and dose-adjust antibiotics. (3) Nonhealing surgical wound Current Visit: No Status: Acute Location: Right posteriomedial lower leg. Wound culture positive for PSEA, intermediately sensitive for levaquin. Clinically, does not appear infected. MRI completed at [facility] 10/05/16 shows no evidence of osteomyelitis. CT of the lower extremity completed 10/08/16 shows a small fluid collection adjacent to the posteromedial calf wound, concerning for abscess. No active drainage or purulence noted. Clinically, the wound does not appear infected and there is no evidence of surrounding cellulitis. Consult wound care team for recommendation. Continue Cefepime 2 grams IV Q12H. Qualifiers: Encounter type: initial encounter Qualified Code(s): T81.89XA - Other complications of procedures, not elsewhere classified, initial encounter (4) Non-healing ulcer of foot Current Visit: Yes Status: Acute Location: Right posteriomedial lower leg. Wound culture positive for PSEA, intermediately sensitive to Levaquin. Clinically, does not appear infected. MRI completed at [facility] 10/05/16 shows no evidence of osteomyelitis. CT of the lower extremity completed 10/08/16 shows a small fluid collection adjacent to the posteromedial calf wound, concerning for abscess. No active drainage or purulence noted. Clinically, the wound does not appear infected and there is no evidence of surrounding cellulitis. Consult wound care team for recommendation. Continue Cefepime 2 grams IV Q12H. Qualifiers: Laterality: right Non-pressure ulcer stage: with fat layer exposed Qualified Code(s): L97.512 - Non-pressure chronic ulcer of other part of right foot with fat layer exposed (5) Renal insufficiency Current Visit: No Status: Resolved Chronic. Diagnosed on previous admission. Improved. Continue to trend. Dose-adjust antibiotics and avoid nephrotoxins as able. (6) Atrial fibrillation with RVR Current Visit: Yes Status: Resolved Likely secondary to sepsis. Management per the primary team. (7) Pancytopenia Current Visit: Yes Status: Acute Likely secondary to recent Cytoxan use, potentially worsened by sepsis. Continue to monitor closely. 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 Previously on Cytoxan, but currently on hold due to leukopenia. Consult Rheumatology for recommendations re: prednisone use given the patient' s acute illness. Continue Bactrim DS 1 tab PO 3x/week for PCP prophylaxis as previously prescribed by [facility]. May need to consider transferring the patient back to [facility] where her conference translator is. Currently on high dose steroids (prednisone 30mg daily). (9) Anemia Current Visit: No Status: Acute FOBT positive. Further workup and management per the primary team. Qualifiers: Anemia type: unspecified type Qualified Code(s): D64.9 - Anemia, unspecified (10) Coronary artery disease Current Visit: No Status: Chronic Qualifiers: Coronary Disease-Associated Artery/Lesion type: bypass graft [place] vs. transplanted heart: [place] heart Associated angina: without angina Qualified Code(s): I25.810 - Atherosclerosis of coronary artery bypass graft(s) without angina pectoris (11) Diabetes mellitus type 2, uncontrolled Current Visit: Yes Status: Chronic Qualifiers: Diabetes mellitus complication status: with neurologic complications Diabetes mellitus complication detail: with unspecified neuropathy Diabetes mellitus moth exterminator insulin use: with moth exterminator use Qualified Code(s): E11.40 - Type 2 diabetes mellitus with diabetic neuropathy, unspecified; E11.65 - Type 2 diabetes mellitus with hyperglycemia; Z79.4 - jail (current) use of insulin - Subjective Interval history: Patient seen and examined. No acute events noted overnight. Patient resting quietly in bed status post KEM this morning. Denies fevers, chills, or rigors. Denies chest pain, shortness of breath, or cough. Denies nausea, vomiting, or diarrhea. Denies abdominal pain or urinary complaints. Denies oral thrush or skin lesions. States her appetite is good. Complains of pain in the right lower extremity. Infect Dis PN-Objective Data - Labs CBC & Chem 7: 10/13/16 00:32 10/13/16 00:32 Labs: Laboratory Results - last 24 hr 10/11/16 10/11/16 10/12/16 16:32 20:50 16:37 WBC RBC Hgb Hct MCV MCH MCHC RDW Plt Count MPV PT INR APTT Sodium Potassium Chloride Carbon Dioxide BUN Creatinine Est GFR ( Amer) Est GFR (Non-Af Amer) BUN/Creatinine Ratio Glucose POC Glucose 382 H 371 H 321 H Calculated Osmolality Calcium 10/12/16 10/13/16 10/13/16 20:51 00:32 00:32 WBC RBC Hgb Hct MCV MCH MCHC RDW Plt Count MPV PT 14.6 H INR 1.3 APTT 75.3 H Sodium Potassium Chloride Carbon Dioxide BUN Creatinine Est GFR ( Amer) Est GFR (Non-Af Amer) BUN/Creatinine Ratio Glucose POC Glucose 329 H Calculated Osmolality Calcium 10/13/16 10/13/16 00:32 00:32 WBC 4.9 RBC 2.73 L Hgb 8.2 L Hct 25.5 L MCV 93.4 MCH 30.0 MCHC 32.2 RDW 16.5 H Plt Count 205 MPV 11.4 PT INR APTT Sodium 137 Potassium 3.7 Chloride 95 L Carbon Dioxide 31 H BUN 32 H Creatinine 1.46 H Est GFR ( Amer) 44 L Est GFR (Non-Af Amer) 36 L BUN/Creatinine Ratio 22 Glucose 272 H POC Glucose Calculated Osmolality 301 H Calcium 9.8 Cultures: Cultures 10/11/16 13:36 Blood Culture - Preliminary Peripheral Venipuncture No growth. 10/11/16 13:31 Blood Culture - Preliminary Peripheral Venipuncture No growth. 10/09/16 16:06 Blood Culture - Final Peripheral Venipuncture Vancomycin Resistant Enterococcus faecalis 10/09/16 16:06 Blood Culture - Final Peripheral Venipuncture Vancomycin Resistant Enterococcus faecalis 10/08/16 10:00 Wound Culture - Final Left Foot Pseudomonas aeruginosa 10/08/16 10:00 Wound Culture - Final Right Leg Pseudomonas aeruginosa Serology 10/10/16 10/09/16 Range/Units 08:06 16:06 Stool Occult Blood Positive A (Negative) A. baumannii (PCR) Not Detected (Not Detect) Jenna albicans (PCR) Not Detected (Not Detect) C. glabrata (PCR) Not Detected (Not Detect) C. krusei (PCR) Not Detected (Not Detect) C. parapsilosis (PCR) Not Detected (Not Detect) C. tropicalis (PCR) Not Detected (Not Detect) Enterobacteriac sp PCR Not Detected (Not Detect) E. cloacae complex PCR Not Detected (Not Detect) Enterococcus sp PCR DETECTED A (Not Detect) E. coli (PCR) Not Detected (Not Detect) H. influenzae (PCR) Not Detected (Not Detect) Klebsiella oxytoca PCR Not Detected (Not Detect) Klebsiella pneumoniae Not Detected (Not Detect) List. monocytogenes PCR Not Detected (Not Detect) N. meningitidis (PCR) Not Detected (Not Detect) Proteus species (PCR) Not Detected (Not Detect) Serratia marcescens PCR Not Detected (Not Detect) Staphylococcus sp PCR Not Detected (Not Detect) Staph aureus (PCR) Not Detected (Not Detect) mecA-Methicil Res Gene Not Detected (Not Detect) Streptococcus sp PCR Not Detected (Not Detect) Group A Strep DNA Not Detected (Not Detect) Group B Strep (PCR) Not Detected (Not Detect) Strep pneumoniae (PCR) Not Detected (Not Detect) P. aeruginosa (PCR) Not Detected (Not Detect) Peter/B-Vanco Res Genes DETECTED A (Not Detect) KPC (blaKPC) Detect PCR Not Detected (Not Detect) Exam - Constitutional Vitals: Temp Pulse Resp BP Pulse Ox 97.7 F 69 18 158/91 96 10/13/16 13:27 10/13/16 13:27 10/13/16 13:27 10/13/16 13:27 10/13/16 13:27 General appearance: cooperative, no acute distress, obese - Head Head exam: Present: atraumatic, normal inspection, normocephalic - Eye Eye exam: Present: EOMI, normal appearance, PERRL Pupils: Present: normal accommodation Additional comments: No subconjunctival hemorrhage noted. - ENT ENT exam: Present: mucous membranes moist - Neck Neck exam: Present: normal inspection - Respiratory Respiratory exam: Present: CTAB. Absent: rales, respiratory distress, rhonchi, wheezes - Cardiovascular Cardiovascular exam: Present: RRR, +S1, +S2 - GI/Abdominal GI/Abdominal exam: Present: distended (obese), normal bowel sounds, soft. Absent: tenderness - Extremities Exam Extremities exam: Present: tenderness (Right lower leg and right foot). Absent : joint swelling, pedal edema Additional comments: RLE dressing C/D/I. No endocarditis stigmata noted. - Neurological Exam Neurological exam: Present: alert, oriented X3, no focal deficits - Psychiatric Psychiatric exam: Present: normal affect, normal mood - Skin Skin exam: Present: dry, intact, normal color, warm Consult Discharge Plan - Plan Referrals: Vic Bernal MD [Partnered Physician] - 10/23/16 10:00 am (New Consult Appt)
[2016-10-13] MEDS: Folic Acid 1 MG TABLET PO SCH (13:50)
[2016-10-13] MEDS: Furosemide 40 MG TABLET PO SCH ×2 (13:51→19:33)
[2016-10-13] MEDS: Aspirin Enteric Coated 81 MG Tablet PO SCH (13:51)
[2016-10-13] MEDS: Diltiazem CD (24hr) 240 MG CAPSULE PO SCH (13:52)
[2016-10-13] MEDS: Cholecalciferol (D-3) 1,000 UNIT TABLET PO SCH (13:52)
[2016-10-13] MEDS: predniSONE 10 MG TABLET PO SCH (13:52)
[2016-10-13] MEDS: FLUoxetine 20 MG CAPSULE PO SCH (13:52)
[2016-10-13] MEDS: DAPTOmycin 500 MG in 0.9 % Sodium Chloride 100 ML IVPB SCH (13:56)
[2016-10-13] MEDS: *HR* Warfarin 5 MG TABLET PO SCH (17:28)
[2016-10-13] MEDS: *HR* HYDROcodone/Acet 5/325 mg TABLET PO PRN (17:28)
[2016-10-13] MEDS: Fenofibrate 54 MG TABLET PO SCH (17:28)
[2016-10-13] MEDS: Insulin DETEMIR 100 UNIT/ML X5UNITS SQ SCH (22:36)
[2016-10-14 06:29] LABS: Hematocrit 28.5 % (35.3-44.9); Mean Corpuscular HGB Conc 31.6 g/dL (31.6-35.5); Mean Corpuscular Hemoglobin 29.3 pg (28.0-33.3); Mean Corpuscular Volume 92.8 fL (83.0-100.0); Mean Platelet Volume 11.2 fL (9.4-12.4); Platelet Count 172 K/mcL (140-400); Red Blood Count 3.07 M/mcL (3.82-4.97); Red Cell Distribution Width 16.8 % (11.5-14.5)
[2016-10-14 06:38] LABS: INR 3.4
[2016-10-14 06:50] LABS: Calcium 10.1 mg/dL (8.6-10.8); Potassium 4.2 mEq/L (3.5-4.5)
--- NOTE | 2016-10-14 07:18 | Internal Med Progress Note ---
<Orville Pryor - Last Filed: 10/14/16 11:11> Date of Encounter: 10/14/16 Time of Encounter: 07:10 - Assessment and plan (1) VRE bacteremia Current Visit: Yes Status: Acute Assessment and plan: On admission patient met 3/4 SIRS criteria source likely bacteremia. Blood cx on 10/08 and 10/09 were positive for VRE. Zyvox was D/C'ed because bacterial static. KEM on 10/14 showed no endocarditis. source of bacteremia is unclear. CT of abd/pelvis were negative for source of bacteremia. MRI done at [facility] on 10/05 showed no evidence of osteomyelitis. - 10/10 preliminary blood cultures show no growth, waiting for final report and second blood culture to show no growth. - continue Daptomycin and cefepime - ID following - monitor renal function - check CK weekly, last ordered on 10/14 (2) Thrombosis Current Visit: Yes Status: Acute Assessment and plan: Thrombis seen in Right common femoral vein on LE arterial duplex - Continue IV heparin bridge to warfarin until therapeutic. (3) Sepsis Current Visit: Yes Status: Acute Assessment and plan: 2/4 SIRS: Today - HR 107 RR 21 T 97.5 WBC 4.6 - continue daptomycin and Cefepime. - low suspicion, will reevaluate after new vitals are taken Qualifiers: Sepsis type: Streptococcus, other Qualified Code(s): A40.8 - Other streptococcal sepsis (4) GERD (gastroesophageal reflux disease) Current Visit: Yes Status: Chronic Assessment and plan: Ct PPI PO 20 mg. Qualifiers: Esophagitis presence: esophagitis presence not specified Qualified Code(s) : K21.9 - Gastro-esophageal reflux disease without esophagitis (5) Diabetes mellitus type 2, uncontrolled Current Visit: Yes Status: Chronic Assessment and plan: continue blood glucose before meals and at bedtime. continue levemir and SSI. - Blood sugars have been running in the 250-350 range. Increased morning levemir to 35 Qualifiers: Diabetes mellitus complication status: with neurologic complications Diabetes mellitus complication detail: with unspecified neuropathy Diabetes mellitus manager terminal insulin use: with manager terminal use Qualified Code(s): E11.40 - Type 2 diabetes mellitus with diabetic neuropathy, unspecified; E11.65 - Type 2 diabetes mellitus with hyperglycemia; Z79.4 - technician terminal and repeater (current) use of insulin (6) Hyperlipidemia Current Visit: Yes Status: Chronic Assessment and plan: Ct crestor Qualifiers: Hyperlipidemia type: pure hypercholesterolemia Qualified Code(s): E78.00 - Pure hypercholesterolemia, unspecified; E78.0 - Pure hypercholesterolemia (7) Hypertension Current Visit: Yes Status: Chronic Qualifiers: Hypertension type: essential hypertension Qualified Code(s): I10 - Essential (primary) hypertension (8) DVT prophylaxis Current Visit: Yes Status: Acute Assessment and plan: ct heparin (9) Chronic kidney disease, stage 3 Current Visit: Yes Status: Chronic Assessment and plan: Strict I+O, and weights (10) Atrial fibrillation with RVR Current Visit: Yes Status: Resolved Assessment and plan: ct telemetry. Afib most likely due to new onset of sepsis (11) Open wound, hand Current Visit: Yes Status: Acute Assessment and plan: non-healing wound on left hand dorsal surface. - 2 sutures placed on 10/12/16 5 nylon non-absorbable. Qualifiers: Qualified Code(s): S61.409A - Unspecified open wound of unspecified hand, initial encounter (12) Non-healing ulcer of foot Current Visit: Yes Status: Acute Assessment and plan: Right posteriomedial lower leg. wound tested positive for pseudomonas. covered by cefepime. continue current abx course. currently does not clinically appear infected. Qualifiers: Laterality: right Non-pressure ulcer stage: with fat layer exposed Qualified Code(s): L97.512 - Non-pressure chronic ulcer of other part of right foot with fat layer exposed - Subjective Interval history: 61 yo F on day 5 admitted for Sepsis and chronic right lower leg cellulitis with a newly discovered thrombosis. Denies SOB last night. She was unable to fall asleep last night, she thinks it was because of the caffeinated tea she had last night. no new complaints today. she reports feeling well. continues to deny n/v/c/ diarrhea. - Constitutional Vitals: Temp Pulse Resp BP Pulse Ox 97.5 F L 107 21 133/75 95 10/14/16 03:47 10/14/16 03:47 10/14/16 03:47 10/14/16 03:47 10/14/16 03:47 General appearance: Present: cooperative, A&O X 3, pleasant, no acute distress, obese, answers questions appropriately - Head Head exam: Present: atraumatic, normocephalic - Respiratory Respiratory exam: Present: CTAB. Absent: accessory muscle use, rales, rhonchi, wheezes - Cardiovascular Cardiovascular exam: Present: RRR, +S1, +S2. Absent: diastolic murmur, gallop, rubs, systolic murmur - GI/Abdominal GI/Abdominal exam: Present: normal bowel sounds, soft, no peritoneal signs. Absent: distended, tenderness Internal Medicine: Result - Labs CBC & Chem 7: 10/14/16 06:09 10/14/16 06:09 Labs: Short CBC 10/14/16 Range/Units 06:09 WBC 4.6 (4.3-11.1) K/mcL Hgb 9.0 L (11.5-15.4) g/dL Hct 28.5 L (35.3-44.9) % Plt Count 172 (140-400) K/mcL BMP 10/14/16 06:09 Sodium 135 L Potassium 4.2 Chloride 92 L Carbon Dioxide 33 H BUN 32 H Creatinine 1.39 H Glucose 327 H Calcium 10.1 - ABG Interpretation ABG results: PT/INR, D-dimer PT 38.0 Seconds (9.4-12.1) H D 10/14/16 06:09 Consult Discharge Plan - Plan Referrals: Vic Bernal MD [Partnered Physician] - 10/23/16 10:00 am (New Consult Appt) <Adal Smith - Last Filed: 10/14/16 12:00> Date of Encounter: 10/14/16 - Assessment and plan (1) DVT (deep venous thrombosis) Current Visit: Yes Status: Acute Qualifiers: DVT location: lower extremity Affected thrombotic vein of extremity: femoral Chronicity: acute Laterality: left Qualified Code(s): I82.412 - Acute embolism and thrombosis of left femoral vein - Constitutional Vitals: Temp Pulse Resp BP Pulse Ox 98.1 F 82 17 123/55 97 10/14/16 11:44 10/14/16 11:44 10/14/16 11:44 10/14/16 11:44 10/14/16 11:44 Internal Medicine: Result - Labs CBC & Chem 7: 10/14/16 06:09 10/14/16 06:09 Labs: Short CBC 10/14/16 Range/Units 06:09 WBC 4.6 (4.3-11.1) K/mcL Hgb 9.0 L (11.5-15.4) g/dL Hct 28.5 L (35.3-44.9) % Plt Count 172 (140-400) K/mcL BMP 10/14/16 06:09 Sodium 135 L Potassium 4.2 Chloride 92 L Carbon Dioxide 33 H BUN 32 H Creatinine 1.39 H Glucose 327 H Calcium 10.1 - ABG Interpretation ABG results: PT/INR, D-dimer PT 38.0 Seconds (9.4-12.1) H D 10/14/16 06:09 - Attending Attestation I examined this patient and my medical decision-making was reviewed with the Resident Physician on 10/14/16. I agree with the documented findings, disposition and treatment plan as described except to the extent set forth below. 61 F being managed for RLE infected wound with pseudomonas, VRE bacteremia, Sepsis secondary to chronic LE wound infection and bacteremia She also has a PMH of RA, Chronic steroid therapy, Afib, ANCA vasculitis Her abdomen and pelvis imaging with po contrast done 10/10 showed perinephric stranding. Venous doppler showed a mobile L femoral vein thrombus, patient has been started on heparin and bridging with coumadin Her YASSINE showed moderate disease No intervention per vascular Vascular surgery and Infectious disease are actively following Last febrile episode was 10/09 100.6 0327 Blood cultures from 10/09 +ve VRE in both bottles Blood cultures from 10/11 preliminary negative X2 KEM this morning with no vegetations She is complaining of epistaxis this morning, and it is free flowing Physical exam: VSS not in distress, CTAB, HS S!, S2 , Irregular, Abdomen is benign, L hand wound sutured, underlying fascia visible, does not look infected , RLE with ~5cm deep right foot dosal surface wound with purulent slough, R leg medial surface wound, with slough, extremities are pink and perfused Labs and Imaging reviewed-Stable hb, renal function stable, INR 3.4 Plan; Epistaxis: Patient with therapeutic INR-3.4. ENT consulted STAT. Hold heparin VRE bacteremia-Continue current management. Blood culture from 10/11 prelim negative. Check CK today L hand wound: intact sutures, no signs of infection Continue current care, monitor CK RLE pseudomonas wound infection-Continue renally dosed Cefepime Patient reports she will be going home and not back to SNF. SW will be updated on Monday 10/16 regarding discharge disposition Rest of details as in resident physician's documentation High risk patient due to ongoing diagnoses, epistaxis on heparin drip
[2016-10-14] MEDS: predniSONE 10 MG TABLET PO SCH (08:48)
[2016-10-14] MEDS: Cholecalciferol (D-3) 1,000 UNIT TABLET PO SCH (08:49)
[2016-10-14] MEDS: Furosemide 40 MG TABLET PO SCH ×2 (08:49→17:06)
[2016-10-14] MEDS: Insulin DETEMIR 100 UNIT/ML X5UNITS SQ SCH ×2 (08:49→17:06)
[2016-10-14] MEDS: Aspirin Enteric Coated 81 MG Tablet PO SCH (08:49)
[2016-10-14] MEDS: FLUoxetine 20 MG CAPSULE PO SCH (08:49)
[2016-10-14] MEDS: Diltiazem CD (24hr) 240 MG CAPSULE PO SCH (08:49)
[2016-10-14] MEDS: Insulin LISPRO 300 UNITS/3 ML VIAL SQ SCH ×7 (08:50→21:39)
[2016-10-14] MEDS: Folic Acid 1 MG TABLET PO SCH (08:50)
[2016-10-14] MEDS: Cefepime HCl 2,000 MG in D5% in Water (Mini-Bag+) 100 ML IVPB SCH (12:10)
--- NOTE | 2016-10-14 12:33 | Vascular/Endovas Progress Note ---
Date of Encounter: 10/13/16 Time of Encounter: 16:00 - Assessment and plan (1) Atherosclerosis of arteries of extremities Current Visit: Yes Status: Acute The patient has a history of peripheral vascular disease. Her ABIs are consistent with moderate disease. She has a right right forefoot ulcer and a right medial calf ulcer. Her cellulitis has resolved. She will continue with antibiotics. SHe has no signs of acute limb ischamia. Her arterial duplex revealed no significant stenosis in the distal iliac through tibial vessels. She will continue with local wound care. She may follow-up in vascular clinic after discharge. Angiography will be considered after sepsis/bacteremia resolves. (2) Chronic kidney disease, stage 3 Current Visit: Yes Status: Chronic (3) Anemia Current Visit: No Status: Acute Qualifiers: Anemia type: other cause Other causes of anemia: chronic disease, other Qualified Code(s): D63.8 - Anemia in other chronic diseases classified elsewhere (4) Atrial fibrillation Current Visit: No Status: Chronic Qualifiers: Atrial fibrillation type: chronic Qualified Code(s): I48.2 - Chronic atrial fibrillation - Subjective Interval history: The patient states that she is feeling well today. She denies any foot or leg pain. She states that shes is eager to go home. She denies chest pain or shortness of breath. Vital Signs, Last 4 Hours Temp Pulse Resp BP Pulse Ox 10/14/16 11:44 98.1 F 82 17 123/55 97 - Physical Examination General: Present: Conversant, No Apparent Distress HEENT: Present: Atraumatic Neck: Absent: JVD Cardiac: Present: Irregular Rhythm Lungs: Present: Normal Breath Sounds Neuro: Present: Alert and responsive, No focal deficits noted Vascular: Present: Normal capillary refill. Absent: Cyanosis, Edema Abdomen: Present: Soft Skin: Present: Wound/ulcer(s) (right foot and leg ulcers without erythema, minimal serous drainage, margins viable) Results 10/14/16 06:09 10/14/16 06:09 Lab Results, Last 24 hours 10/14/16 10/14/16 10/14/16 00:15 06:09 06:09 WBC 4.6 Hgb 9.0 L Hct 28.5 L Plt Count 172 INR 3.4 D APTT 86.0 H Sodium Potassium Chloride Carbon Dioxide BUN Creatinine Glucose Calcium 10/14/16 06:09 WBC Hgb Hct Plt Count INR APTT Sodium 135 L Potassium 4.2 Chloride 92 L Carbon Dioxide 33 H BUN 32 H Creatinine 1.39 H Glucose 327 H Calcium 10.1 Consult Discharge Plan - Plan Referrals: Vic Bernal MD [Partnered Physician] - 10/23/16 10:00 am (New Consult Appt)
[2016-10-14] MEDS: DAPTOmycin 500 MG in 0.9 % Sodium Chloride 100 ML IVPB SCH (12:48)
[2016-10-14] MEDS ORDERED: Oxymetazoline Nasal SPRAY BOTTLE NS PRN (13:06)
[2016-10-14] MEDS: *HR* HYDROcodone/Acet 5/325 mg TABLET PO PRN (13:39)
--- NOTE | 2016-10-14 14:24 | ENT - Consult Note ---
Date of Encounter: 10/14/16 Time of Encounter: 14:19 Assessment and Plan (1) Epistaxis Current Visit: Yes Status: Acute Likely due to NC 02 use and anticoagulation for DVT. Supratherapeutic INR today at 3.4, Coumadin and heparin currently being held. Will recheck and resume Coumadin to maintain therapeutic range INR Large clot removed from right nare. Recommend Afrin 2-3 times daily and as needed for bleeding along with pressure. Recommend Bactroban ointment applied tid Agree with face mask 02. Will recheck tomorrow, consider packing if bleeding persists overnight. History of Present Illness Consult date: 10/14/16 History of present illness: Pt is a 61 yo female admitted with VRE bacteremia being treated with IV abx and also with new LE DVT who now has bilateral epistaxis for which ENT is consulted. Denies prior issues with epistaxis. Denies nasal trauma or prior nasal surgery. She is on Coumadin and Heparin for DVT treatment but was supratherapeutic with INR 3.4 today. Anticoagulants have been held today. Denies other bleeding disorders. Denies other nasal complaints. Past Med Surg Social Fam HX - Past Medical History Medical history: atrial fibrillation, COPD, coronary artery disease, diabetes, GERD, hyperlipidemia, hypertension, myocardial infarction, RA, thyroid disease, TIA, other Psychiatric history: no psych history - Past Surgical History Surgical History: angioplasty/stent, coronary bypass (CABG), hysterectomy, thyroidectomy, other - Social History Smoking Status: Former smoker Smokeless Tobacco Status: No Alcohol use: none Drug use: none - Family History Mother Adopted: No Race: Family Member Ethnicity: Non- Living Status: Age at : 57 Cause of : [place] Hx Family Cardiac Disorders: Yes (HD, HTN, HLD, [place]) Hx Family Respiratory Disorders: No Hx Family Cancer: Yes (breast ca) Hx Family GI Disorders: No Hx Family Endocrine Disorder: No Hx Family Neuromuscular Disorders: No Hx Family Neurologic Disorders: No Hx Family HEENT Disorders: No Hx Family Autoimmune Disorders: No Brother Race: Family Member Ethnicity: Non- Living Status: Still Living Hx Family Cardiac Disorders: Yes (HD) Hx Family Respiratory Disorders: Yes Hx Family Cancer: Yes Hx Family GI Disorders: No Hx Family Endocrine Disorder: Yes Hx Family Neuromuscular Disorders: No Hx Family Neurologic Disorders: No Hx Family HEENT Disorders: No Hx Family Autoimmune Disorders: No Father Race: Family Member Ethnicity: Non- Living Status: Age at : 97 Hx Family Medical Disorders: No Medications and Allergies Cyclobenzaprine [Flexeril] 10 mg PO TID PRN 06/10/15 [History] Insulin Glargine [Lantus] 29 unit SQ QAM 06/10/15 [History] Isosorbide DInitrate [Isosorbide Dinitrate] 60 mg PO BID 06/10/15 [History] Rosuvastatin [Crestor] 40 mg PO DAILY 06/10/15 [History] Levothyroxine Sodium [Levoxyl] 125 mcg PO DAILY 02/01/16 [History] Fenofibrate 54 mg PO QPM 03/20/16 [History] Omeprazole [PriLOSEC] 20 mg PO DAILY 03/26/16 [History] Sennosides/Docusate Sodium [Senna Plus] 1 tab PO BID PRN 07/02/16 [History] Ferrous Sulfate 325 mg PO BIDWM #60 tablet. 07/03/16 [Rx] Acetaminophen [Tylenol Arthritis] 650 mg PO Q4HR PRN 10/08/16 [History] Aspirin 81 mg PO DAILY 10/08/16 [History] Calcium Carbonate/Vitamin D3 [Calcium 600-Vit D3 200 Tablet] 1 tab PO DAILY 08/19 [History] Carvedilol [Coreg] 25 mg PO BID 10/08/16 [History] Cholecalciferol (Vitamin D3) [Vitamin D3] 1,000 unit PO DAILY 10/08/16 [History] Diltiazem CD (24hr) [Cardizem CD] 240 mg PO DAILY 10/08/16 [History] FLUoxetine HCl [PROzac] 20 mg PO DAILY 10/08/16 [History] Folic Acid 1 mg PO DAILY 10/08/16 [History] Furosemide [Lasix] 40 mg PO BID 10/08/16 [History] HYDROcodone/Acet 10/325 mg [[place] 10-325 mg] 1 tab PO Q6HR PRN 10/08/16 [History ] HumaLOG See Protocol 10/08/16 [History] HumuLIN N 30 units SQ QAM 10/08/16 [History] Insulin Glargine,Hum.rec.anlog [Lantus Solostar] 35 unit SQ QPM 10/08/16 [ History] Ipratropium/Albuterol Neb [Duoneb] 3 ml IH Q6HR PRN 10/08/16 [History] Losartan [Cozaar] 25 mg PO BID 10/08/16 [History] Mupirocin [Bactroban Oint] 1 appl TP BID 10/08/16 [History] Nitroglycerin [Nitrostat] 0.4 mg SL AD PRN 10/08/16 [History] Polyethylene Glycol 3350 [MiraLAX] 17 gm PO DAILY PRN 10/08/16 [History] Potassium Chloride [Klor-Con 10] 10 meq PO DAILY 10/08/16 [History] Sulfamethoxazole/Trimeth DS [Bactrim DS] 1 tab PO 3XW 10/08/16 [History] hydrOXYzine pamoate [HydrOXYzine Pamoate] 25 mg PO TID PRN 10/08/16 [History] predniSONE [PredniSONE] 30 mg PO DAILY 10/08/16 [History] Allergies lisinopril Allergy (Verified 07/11/16 05:00) Swelling of Lip/Tongue/Throat Penicillins [PCN] Allergy (Verified 03/19/16 21:38) Hives ENT - ROS - Constitutional Constitutional ROS: no daytime sleepiness, no fever(s), no headache(s), no lethargy, no snoring, no stops breathing during sleep - EENT Nose, mouth and throat: as per HPI - Cardiovascular Cardiovascular ROS IM: no chest pain - Respiratory cough, no stridor - Gastrointestinal Gastrointestinal: no dysphagia, no odynophagia - Genitourinary Genitourinary ROS: no dysuria - Musculoskeletal Musculoskeletal ROS: no numbness - Integumentary Integumentary: no new lesions - Neurological Neurological ROS: no syncope - Psychiatric Psychiatric general: no anxiety - Endocrine Endocrine: no cold intolerance - Hematologic/Lymphatic no lymphadenopathy - Allergic/Immunologic no tongue swelling, no throat swelling ENT Exam Initial Vital Signs Temp Pulse Resp BP Pulse Ox 102.5 F H 98 18 114/80 97 10/08/16 03:34 10/08/16 03:34 10/08/16 03:34 10/08/16 03:34 10/08/16 03:34 - General physical appearance well developed, well nourished, no distress - Eyes PERRL - ENT Other (External ear exam normal. Bilateral bleeding on nasal exam, right more than left. Large clot removed from right nare with irritation of anterior septum on both sides. Oral exam shows no clot present. ) - Neck no masses, no bruits, trachea midline, no lymphadectomy - Respiratory normal expansion, normal respiratory effort - Abdomen Abdomen: soft - Integumentary no rash - Neurologic CN 2-12 grossly intact, normal coordination, normal sensation - Musculoskeletal other (moves all extremities) - Psychiatric oriented to time, oriented to person, oriented to place Exam Initial Vital Signs Temp Pulse Resp BP Pulse Ox 102.5 F H 98 18 114/80 97 10/08/16 03:34 10/08/16 03:34 10/08/16 03:34 10/08/16 03:34 10/08/16 03:34 Results - Labs 10/14/16 06:09 10/14/16 06:09 Abnormal lab results RBC 3.07 M/mcL (3.82-4.97) L 10/14/16 06:09 Hgb 9.0 g/dL (11.5-15.4) L 10/14/16 06:09 Hct 28.5 % (35.3-44.9) L 10/14/16 06:09 RDW 16.8 % (11.5-14.5) H 10/14/16 06:09 Immature Gran % 10.6 % (0-4) H 10/11/16 03:41 Band Neutrophils % 14.0 % (0-4) H 10/08/16 04:21 Lymphocytes # 0.3 K/mcL (0.6-4.6) L 10/11/16 03:41 Nucleated RBCs/100 WBC 0.5 /100 WBC (0) H 10/11/16 03:41 Hypersegmented Neuts Present (Not Present) A 10/11/16 03:41 Polychromasia 1+ (Not Present) A 10/11/16 03:41 Hypochromasia Present (Not Present) A 10/11/16 03:41 PT 38.0 Seconds (9.4-12.1) H D 10/14/16 06:09 APTT 86.0 Seconds (26.0-36.0) H 10/14/16 00:15 Heparin Anti-Xa, Unfract 1.86 IU/mL (0.30-0.70) H* 10/11/16 05:12 Sodium 135 mEq/L (136-145) L 10/14/16 06:09 Chloride 92 mEq/L (98-109) L 10/14/16 06:09 Carbon Dioxide 33 mEq/L (19-29) H 10/14/16 06:09 BUN 32 mg/dL (7-20) H 10/14/16 06:09 Creatinine 1.39 mg/dL (0.57-1.11) H 10/14/16 06:09 Est GFR ( Amer) 47 (> 60) L 10/14/16 06:09 Est GFR (Non-Af Amer) 39 (> 60) L 10/14/16 06:09 Glucose 327 mg/dL (70-99) H 10/14/16 06:09 POC Glucose 266 (58-89) H 10/14/16 11:47 Hemoglobin A1c 7.5 % (-5.6) H 10/09/16 04:44 AST 55 Units/L (5-34) H 10/08/16 04:21 Creatine Kinase 9 Units/L (29-168) L 10/14/16 07:47 Serum Total Protein 5.9 g/dL (6.0-8.3) L 10/08/16 04:21 Albumin 2.8 g/dL (3.5-5.0) L 10/08/16 04:21 Albumin/Globulin Ratio 0.9 (1.1-2.2) L 10/08/16 04:21 Triglycerides 411 mg/dL (< 150) H 10/09/16 04:44 HDL Cholesterol 17 mg/dL (40-59) L 10/09/16 04:44 Cholesterol/HDL Ratio 6.2 (0-4.9) H 10/09/16 04:44 Urine Protein 30 mg/dL (Neg-Trace) H 10/08/16 04:50 Urine Microscopic WBC 3-5 per hpf (0-3) H 10/08/16 04:50 Ur Squamous Epith Cells Many per lpf (None-Few) H 10/08/16 04:50 Stool Occult Blood Positive (Negative) A 10/10/16 08:06 Enterococcus sp PCR DETECTED (Not Detect) A 10/09/16 16:06 Peter/B-Vanco Res Genes DETECTED (Not Detect) A 10/09/16 16:06 Diabetes panel 10/14/16 Range/Units 06:09 Sodium 135 L (136-145) mEq/L Potassium 4.2 (3.5-4.5) mEq/L Chloride 92 L (98-109) mEq/L Carbon Dioxide 33 H (19-29) mEq/L BUN 32 H (7-20) mg/dL Creatinine 1.39 H (0.57-1.11) mg/dL Glucose 327 H (70-99) mg/dL Calcium 10.1 (8.6-10.8) mg/dL Calcium panel 10/14/16 Range/Units 06:09 Calcium 10.1 (8.6-10.8) mg/dL Pituitary panel 10/14/16 Range/Units 06:09 Sodium 135 L (136-145) mEq/L Potassium 4.2 (3.5-4.5) mEq/L Chloride 92 L (98-109) mEq/L Carbon Dioxide 33 H (19-29) mEq/L BUN 32 H (7-20) mg/dL Creatinine 1.39 H (0.57-1.11) mg/dL Glucose 327 H (70-99) mg/dL Calcium 10.1 (8.6-10.8) mg/dL Adrenal panel 10/14/16 Range/Units 06:09 Sodium 135 L (136-145) mEq/L Potassium 4.2 (3.5-4.5) mEq/L Chloride 92 L (98-109) mEq/L Carbon Dioxide 33 H (19-29) mEq/L BUN 32 H (7-20) mg/dL Creatinine 1.39 H (0.57-1.11) mg/dL Glucose 327 H (70-99) mg/dL Calcium 10.1 (8.6-10.8) mg/dL All other labs normal. Consult Discharge Plan - Plan Referrals: Vic Bernal MD [Partnered Physician] - 10/23/16 10:00 am (New Consult Appt)
[2016-10-14] MEDS: Fenofibrate 54 MG TABLET PO SCH (17:06)
[2016-10-14] MEDS: Oxymetazoline Nasal SPRAY BOTTLE NS SCH (17:07)
[2016-10-15] MEDS: Cefepime HCl 2,000 MG in D5% in Water (Mini-Bag+) 100 ML IVPB SCH ×3 (01:31→22:52)
[2016-10-15 05:39] LABS: Hematocrit 29.3 % (35.3-44.9); Hemoglobin 9.3 g/dL (11.5-15.4); Mean Corpuscular HGB Conc 31.7 g/dL (31.6-35.5); Mean Corpuscular Hemoglobin 29.1 pg (28.0-33.3); Mean Corpuscular Volume 91.6 fL (83.0-100.0); Mean Platelet Volume 10.6 fL (9.4-12.4); Platelet Count 164 K/mcL (140-400); Red Cell Distribution Width 16.7 % (11.5-14.5)
[2016-10-15 05:51] LABS: INR 2.3
[2016-10-15 05:53] LABS: Calcium 10.6 mg/dL (8.6-10.8); Potassium 3.7 mEq/L (3.5-4.5)
[2016-10-15] MEDS: Oxymetazoline Nasal SPRAY BOTTLE NS SCH ×2 (09:02→19:03)
[2016-10-15] MEDS: Insulin DETEMIR 100 UNIT/ML X5UNITS SQ SCH ×2 (09:02→17:27)
[2016-10-15] MEDS: Folic Acid 1 MG TABLET PO SCH (09:03)
[2016-10-15] MEDS: predniSONE 10 MG TABLET PO SCH (09:03)
[2016-10-15] MEDS: FLUoxetine 20 MG CAPSULE PO SCH (09:04)
[2016-10-15] MEDS: Aspirin Enteric Coated 81 MG Tablet PO SCH (09:04)
[2016-10-15] MEDS: Furosemide 40 MG TABLET PO SCH ×2 (09:04→17:13)
[2016-10-15] MEDS: Cholecalciferol (D-3) 1,000 UNIT TABLET PO SCH (09:04)
[2016-10-15] MEDS: Diltiazem CD (24hr) 240 MG CAPSULE PO SCH (09:04)
[2016-10-15] MEDS: Insulin LISPRO 300 UNITS/3 ML VIAL SQ SCH ×7 (09:05→23:03)
[2016-10-15] MEDS: *HR* HYDROcodone/Acet 5/325 mg TABLET PO PRN ×2 (09:15→23:12)
--- NOTE | 2016-10-15 10:50 | Internal Med Progress Note ---
Date of Encounter: 10/15/16 Time of Encounter: 10:50 - Assessment and plan (1) DVT (deep venous thrombosis) Current Visit: Yes Status: Acute Assessment and plan: INR therapeutic, continue coumadin Qualifiers: DVT location: lower extremity Affected thrombotic vein of extremity: femoral Chronicity: acute Laterality: left Qualified Code(s): I82.412 - Acute embolism and thrombosis of left femoral vein (2) Epistaxis Current Visit: Yes Status: Resolved Assessment and plan: ENT following (3) Non-healing ulcer of foot Current Visit: Yes Status: Acute Assessment and plan: Right posteriomedial lower leg. wound tested positive for pseudomonas. covered by cefepime. continue current abx course. currently does not clinically appear infected. Qualifiers: Laterality: right Non-pressure ulcer stage: with fat layer exposed Qualified Code(s): L97.512 - Non-pressure chronic ulcer of other part of right foot with fat layer exposed (4) Open wound, hand Current Visit: Yes Status: Acute Assessment and plan: non-healing wound on left hand dorsal surface. - 2 sutures placed on 10/12/16 5 nylon non-absorbable. Qualifiers: Qualified Code(s): S61.409A - Unspecified open wound of unspecified hand, initial encounter (5) Sepsis Current Visit: Yes Status: Acute Assessment and plan: 2/4 SIRS: Today - HR 107 RR 21 T 97.5 WBC 4.6 - continue daptomycin and Cefepime. Qualifiers: Sepsis type: Streptococcus, other Qualified Code(s): A40.8 - Other streptococcal sepsis (6) VRE bacteremia Current Visit: Yes Status: Acute Assessment and plan: On admission patient met 3/4 SIRS criteria source likely bacteremia. Blood cx on 10/08 and 10/09 were positive for VRE. Zyvox was D/C'ed because bacterial static. KEM on 10/14 showed no endocarditis. source of bacteremia is unclear. CT of abd/pelvis were negative for source of bacteremia. MRI done at [facility] on 10/05/16 showed no evidence of osteomyelitis. 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 continue levemir and SSI, adjust with FS Qualifiers: Diabetes mellitus complication status: with neurologic complications Diabetes mellitus complication detail: with unspecified neuropathy Diabetes mellitus salvage determiner insulin use: with salvage determiner use Qualified Code(s): E11.40 - Type 2 diabetes mellitus with diabetic neuropathy, unspecified; E11.65 - Type 2 diabetes mellitus with hyperglycemia; Z79.4 - ocean transportation intermediary (current) use of insulin (10) GERD (gastroesophageal reflux disease) Current Visit: Yes Status: Chronic Assessment and plan: Ct PPI PO 20 mg. Qualifiers: Esophagitis presence: esophagitis presence not specified Qualified Code(s) : K21.9 - Gastro-esophageal reflux disease without esophagitis (11) Hyperlipidemia Current Visit: Yes Status: Chronic Assessment and plan: Ct crestor Qualifiers: Hyperlipidemia type: pure hypercholesterolemia Qualified Code(s): E78.00 - Pure hypercholesterolemia, unspecified; E78.0 - Pure hypercholesterolemia (12) Hypertension Current Visit: Yes Status: Chronic Assessment and plan: ct norvasc, lopressor, cozar Qualifiers: Hypertension type: essential hypertension Qualified Code(s): I10 - Essential (primary) hypertension (13) Atrial fibrillation Current Visit: Yes Status: Chronic Assessment and plan: HR controlled INR therpeutic Continue same management Qualifiers: Atrial fibrillation type: chronic Qualified Code(s): I48.2 - Chronic atrial fibrillation (14) Coronary artery disease Current Visit: Yes Status: Chronic Assessment and plan: Chronic, stable Qualifiers: Coronary Disease-Associated Artery/Lesion type: bypass graft [place] vs. transplanted heart: [place] heart Associated angina: without angina Qualified Code(s): I25.810 - Atherosclerosis of coronary artery bypass graft(s) without angina pectoris (15) Hypothyroid Current Visit: Yes Status: Chronic Qualifiers: Hypothyroidism type: acquired Qualified Code(s): E03.9 - Hypothyroidism, unspecified (16) Rheumatoid arthritis Current Visit: Yes Status: Chronic Qualifiers: Rheumatoid arthritis location: unspecified site Rheumatoid factor presence : unspecified presence Qualified Code(s): M06.9 - Rheumatoid arthritis, unspecified (17) Tobacco abuse Current Visit: Yes Status: Chronic - Subjective Interval history: Seen and evaluated at bedside NO new complains Her epistaxis resolved - Constitutional Vitals: Temp Pulse Resp BP Pulse Ox 98.2 F 83 18 135/95 95 10/15/16 08:10 10/15/16 08:10 10/15/16 08:10 10/15/16 08:10 10/15/16 08:15 General appearance: Present: cooperative, A&O X 3, pleasant, no acute distress, obese, answers questions appropriately - Head Head exam: Present: atraumatic, normocephalic - Eye Eye exam: Present: PERRL, conjuntiva pink, sclera anicteric Pupils: Present: PERRL - Neck Neck exam general surgery: Present: supple, trachea midline. Absent: lymphadenopathy - Respiratory Respiratory exam: Present: CTAB. Absent: accessory muscle use, rales, rhonchi, wheezes - Cardiovascular Cardiovascular exam: Present: irregular rhythm, +S1, +S2. Absent: diastolic murmur, gallop, rubs, systolic murmur - GI/Abdominal GI/Abdominal exam: Present: normal bowel sounds, soft, no peritoneal signs. Absent: distended, tenderness - Extremities Exam Extremities exam: Present: warm, radial pulses palpable and symmetrical. Absent : calf tenderness, cyanotic, pedal edema Additional comments: Wound dressing clean and dry - Neurological Exam Neurological exam: Present: alert, CN II-XII intact, oriented X3, no focal deficits. Absent: pronater drift, facial droop, speech deficit - Skin Skin exam: Present: dry, intact Internal Medicine: Result - Labs CBC & Chem 7: 10/15/16 05:36 10/15/16 05:36 Labs: Short CBC 10/15/16 Range/Units 05:36 WBC 4.7 (4.3-11.1) K/mcL Hgb 9.3 L (11.5-15.4) g/dL Hct 29.3 L (35.3-44.9) % Plt Count 164 (140-400) K/mcL BMP 10/15/16 05:36 Sodium 135 L Potassium 3.7 Chloride 92 L Carbon Dioxide 35 H BUN 39 H Creatinine 1.30 H Glucose 240 H Calcium 10.6 - ABG Interpretation ABG results: PT/INR, D-dimer PT 26.0 Seconds (9.4-12.1) H 10/15/16 05:36 Consult Discharge Plan - Plan Additional Instructions: Continue to use Bactroban ointment in front of your nose three times daily after discharge for a total of one month. Referrals: Vincenzo Reyes DO [Partnered Physician] - (Please call ENT office for followup after discharge if needed for continued nose bleeds. ) Vic Bernal MD [Partnered Physician] - 10/23/16 10:00 am (New Consult Appt)
--- NOTE | 2016-10-15 11:16 | ENT - Progress Note ---
Date of Encounter: 10/15/16 Time of Encounter: 11:14 - Assessment and Plan (1) Epistaxis Current Visit: Yes Status: Acute Likely due to NC 02 use and anticoagulation for DVT. INR 2.3 today, plans to restart coumadin this evening. Nasal mucosa is much healthier in appearance with no signs of bleeding overnight. She does have an area of exposed cartilage on the left. No perforation noted, but she is at risk of developing this. I placed a piece of Surgicel on each side of her septum over the raw areas to hopefully prevent bleeding tonight when she restarts her anticoagulation. Recommend Afrin 2-3 times daily and as needed for bleeding along with pressure while in house. May DC this at discharge. Recommend Bactroban ointment applied tid now and to continue at discharge. Agree with face mask 02. Follow up with [facility] as needed outpatient. Subjective Narrative: Doing better today, no bleeding overnight. Coumadin has been held with plans to restart this evening. No oozing from nose overnight. Objective Initial Vital Signs Temp Pulse Resp BP Pulse Ox 102.5 F H 98 18 114/80 97 10/08/16 03:34 10/08/16 03:34 10/08/16 03:34 10/08/16 03:34 10/08/16 03:34 - General physical appearance well developed, well nourished - ENT Other (Improved appearance of nasal mucosa on both sides of septum. Still raw irritated area anteriorly on each side with exposed cartilage on the left. No perforation. No signs of active or recent bleeding. Mucosa appears healthier than yesterday.) - Neck no lymphadectomy - Respiratory normal expansion, normal respiratory effort - Labs 10/15/16 05:36 10/15/16 05:36 Diabetes panel 10/15/16 Range/Units 05:36 Sodium 135 L (136-145) mEq/L Potassium 3.7 (3.5-4.5) mEq/L Chloride 92 L (98-109) mEq/L Carbon Dioxide 35 H (19-29) mEq/L BUN 39 H (7-20) mg/dL Creatinine 1.30 H (0.57-1.11) mg/dL Glucose 240 H (70-99) mg/dL Calcium 10.6 (8.6-10.8) mg/dL Calcium panel 10/15/16 Range/Units 05:36 Calcium 10.6 (8.6-10.8) mg/dL Pituitary panel 10/15/16 Range/Units 05:36 Sodium 135 L (136-145) mEq/L Potassium 3.7 (3.5-4.5) mEq/L Chloride 92 L (98-109) mEq/L Carbon Dioxide 35 H (19-29) mEq/L BUN 39 H (7-20) mg/dL Creatinine 1.30 H (0.57-1.11) mg/dL Glucose 240 H (70-99) mg/dL Calcium 10.6 (8.6-10.8) mg/dL Adrenal panel 10/15/16 Range/Units 05:36 Sodium 135 L (136-145) mEq/L Potassium 3.7 (3.5-4.5) mEq/L Chloride 92 L (98-109) mEq/L Carbon Dioxide 35 H (19-29) mEq/L BUN 39 H (7-20) mg/dL Creatinine 1.30 H (0.57-1.11) mg/dL Glucose 240 H (70-99) mg/dL Calcium 10.6 (8.6-10.8) mg/dL Consult Discharge Plan - Plan Additional Instructions: Continue to use Bactroban ointment in front of your nose three times daily after discharge for a total of one month. Referrals: Vic Bernal MD [Partnered Physician] - 10/23/16 10:00 am (New Consult Appt) Vincenzo Reyes DO [Partnered Physician] - (Please call ENT office for followup after discharge if needed for continued nose bleeds. )
[2016-10-15] MEDS: DAPTOmycin 500 MG in 0.9 % Sodium Chloride 100 ML IVPB SCH (12:10)
[2016-10-15] MEDS: Fenofibrate 54 MG TABLET PO SCH (17:13)
[2016-10-15] MEDS ORDERED: *HR* Warfarin 2.5 MG TABLET PO ONE (18:00)
[2016-10-16 05:33] LABS: INR 1.8; Prothrombin Time 20.3 Seconds (9.4-12.1)
[2016-10-16 05:38] LABS: Calcium 11.3 mg/dL (8.6-10.8)
[2016-10-16 07:28] VITALS: BP 132/60
[2016-10-16 08:11] LABS: Hematocrit 33.5 % (35.3-44.9); Hemoglobin 10.6 g/dL (11.5-15.4); Mean Corpuscular HGB Conc 31.6 g/dL (31.6-35.5); Mean Corpuscular Volume 91.8 fL (83.0-100.0); Mean Platelet Volume 11.3 fL (9.4-12.4); Platelet Count 172 K/mcL (140-400); Red Blood Count 3.65 M/mcL (3.82-4.97); Red Cell Distribution Width 17.1 % (11.5-14.5)
[2016-10-16] MEDS ORDERED: Insulin DETEMIR 100 UNIT/ML X5UNITS SQ SCH (09:00)
[2016-10-16] MEDS: Furosemide 40 MG TABLET PO SCH (09:17)
[2016-10-16] MEDS: Aspirin Enteric Coated 81 MG Tablet PO SCH (09:17)
[2016-10-16] MEDS: Cholecalciferol (D-3) 1,000 UNIT TABLET PO SCH (09:17)
[2016-10-16] MEDS: Folic Acid 1 MG TABLET PO SCH (09:17)
[2016-10-16] MEDS: FLUoxetine 20 MG CAPSULE PO SCH (09:18)
[2016-10-16] MEDS: predniSONE 10 MG TABLET PO SCH (09:18)
[2016-10-16] MEDS: Diltiazem CD (24hr) 240 MG CAPSULE PO SCH (09:19)
[2016-10-16] MEDS: Insulin LISPRO 300 UNITS/3 ML VIAL SQ SCH ×2 (09:21→12:25)
--- NOTE | 2016-10-16 09:23 | Discharge Summary ---
<Orville Pryor - Last Filed: 10/16/16 11:38> Date of Encounter: 10/16/16 Time of Encounter: 09:17 - Discharge Diagnosis (1) VRE bacteremia Priority: Primary Status: Acute (2) Thrombosis Priority: Secondary Status: Acute (3) Sepsis Priority: Secondary Status: Acute Qualifiers: Sepsis type: Streptococcus, other Qualified Code(s): A40.8 - Other streptococcal sepsis (4) GERD (gastroesophageal reflux disease) Priority: Secondary Status: Chronic Qualifiers: Esophagitis presence: esophagitis presence not specified Qualified Code(s) : K21.9 - Gastro-esophageal reflux disease without esophagitis (5) Diabetes mellitus type 2, uncontrolled Priority: Secondary Status: Chronic Qualifiers: Diabetes mellitus complication status: with neurologic complications Diabetes mellitus complication detail: with unspecified neuropathy 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: with ferry terminal supervisor use Qualified Code(s): E11.40 - Type 2 diabetes mellitus with diabetic neuropathy, unspecified; E11.65 - Type 2 diabetes mellitus with hyperglycemia; 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 (6) Hyperlipidemia Priority: Secondary Status: Chronic Qualifiers: Hyperlipidemia type: pure hypercholesterolemia Qualified Code(s): E78.00 - Pure hypercholesterolemia, unspecified; E78.0 - Pure hypercholesterolemia (7) Hypertension Priority: Secondary Status: Chronic Qualifiers: Hypertension type: essential hypertension Qualified Code(s): I10 - Essential (primary) hypertension (8) DVT prophylaxis Priority: Secondary Status: Acute (9) Chronic kidney disease, stage 3 Priority: Secondary Status: Chronic (10) Atrial fibrillation with RVR Priority: Secondary Status: Resolved (11) Open wound, hand Priority: Secondary Status: Acute Qualifiers: Qualified Code(s): S61.409A - Unspecified open wound of unspecified hand, initial encounter (12) Non-healing ulcer of foot Priority: Secondary Status: Acute Qualifiers: Laterality: right Non-pressure ulcer stage: with fat layer exposed Qualified Code(s): L97.512 - Non-pressure chronic ulcer of other part of right foot with fat layer exposed - Discharge Medications Prescriptions: Commode - Three In One [THREE IN ONE COMMODE] 1 each .ROUTE PRN PRN #1 each PRN Reason: Fatigue DAPTOmycin [Cubicin] 500 mg IV Q24H #14 vial Insulin LISPRO [HumaLOG] 15 units SQ TIDWM #2 vial Walker [WALKER] 1 each .ROUTE AD #1 each Home Medications: Cyclobenzaprine [Flexeril] 10 mg PO TID PRN 06/10/15 [History] Isosorbide DInitrate [Isosorbide Dinitrate] 60 mg PO BID 06/10/15 [History] Rosuvastatin [Crestor] 40 mg PO DAILY 06/10/15 [History] Levothyroxine Sodium [Levoxyl] 125 mcg PO DAILY 02/01/16 [History] Fenofibrate 54 mg PO QPM 03/20/16 [History] Omeprazole [PriLOSEC] 20 mg PO DAILY 03/26/16 [History] Sennosides/Docusate Sodium [Senna Plus] 1 tab PO BID PRN 07/02/16 [History] Ferrous Sulfate 325 mg PO BIDWM #60 tablet. 07/03/16 [Rx] Acetaminophen [Tylenol Arthritis] 650 mg PO Q4HR PRN 10/08/16 [History] Aspirin 81 mg PO DAILY 10/08/16 [History] Calcium Carbonate/Vitamin D3 [Calcium 600-Vit D3 200 Tablet] 1 tab PO DAILY 08/19 [History] Carvedilol [Coreg] 25 mg PO BID 10/08/16 [History] Cholecalciferol (Vitamin D3) [Vitamin D3] 1,000 unit PO DAILY 10/08/16 [History] Diltiazem CD (24hr) [Cardizem CD] 240 mg PO DAILY 10/08/16 [History] FLUoxetine HCl [Prozac] 20 mg PO DAILY 10/08/16 [History] Folic Acid 1 mg PO DAILY 10/08/16 [History] Furosemide [Lasix] 40 mg PO BID 10/08/16 [History] HYDROcodone/Acet 10/325 mg [[place] 10-325 mg] 1 tab PO Q6HR PRN 10/08/16 [History ] Ipratropium/Albuterol Neb [Duoneb] 3 ml IH Q6HR PRN 10/08/16 [History] Losartan [Cozaar] 25 mg PO BID 10/08/16 [History] Mupirocin [Bactroban Oint] 1 appl TP BID 10/08/16 [History] Nitroglycerin [Nitrostat] 0.4 mg SL AD PRN 10/08/16 [History] Polyethylene Glycol 3350 [MiraLAX] 17 gm PO DAILY PRN 10/08/16 [History] Potassium Chloride [Klor-Con 10] 10 meq PO DAILY 10/08/16 [History] Sulfamethoxazole/Trimeth DS [Bactrim Ds] 1 tab PO 3XW 10/08/16 [History] hydrOXYzine pamoate [HydrOXYzine Pamoate] 25 mg PO TID PRN 10/08/16 [History] predniSONE [PredniSONE] 30 mg PO DAILY 10/08/16 [History] Commode - Three In One [THREE IN ONE COMMODE] 1 each .ROUTE PRN PRN #1 each [Rx] DAPTOmycin [Cubicin] 500 mg IV Q24H #14 vial 10/16/16 [Rx] Insulin DETEMIR [Levemir] 35 unit SQ QPM 10/16/16 [Rx] Insulin DETEMIR [Levemir] 40 unit SQ DAILY 10/16/16 [Rx] Insulin LISPRO [HumaLOG] 15 units SQ TIDWM #2 vial 10/16/16 [Rx] Walker [WALKER] 1 each .ROUTE AD #1 each 10/16/16 [Rx] Allergies/Adverse Reactions: Allergies lisinopril Allergy (Verified 07/11/16 05:00) Swelling of Lip/Tongue/Throat Penicillins [PCN] Allergy (Verified 03/19/16 21:38) Hives Date of admission: 10/08/16 09:41 Primary care physician: Jakob Chen MD Consults: 10/08/16 09:52 Consult to Nutrition [CONS] Routine Comment: Consulting Provider: NUTRITION Reason for Dietary Consult: MST Score Consult to Die Storage Clerk [CONS] Routine Reason for SW Consult: from ECF Consult to Wound Care [CONS] Routine Reason for Consult: venous ulcers to R leg and foot Call Completed: No 10/08/16 21:08 Consult to Buyer Grain [CONS] Routine Comment: Reason for Consult: Patient has hx of uncontrolled diabetes and non-healing wounds. Would benefit from diabetes education. 10/09/16 09:13 Consult to Infectious Diseases [CONS] Routine Consulting Provider: [facility] [place] Reason for Consult: Bacteremia positive for gram + cocci and enterococcus VRE Call Completed: Yes 10/09/16 09:15 Consult to Podiatry [CONS] Routine Consulting Provider: [facility] Reason for Consult: non-healing right lower leg extremity. Bacteremia. Call Completed: Yes 10/14/16 12:16 Consult to ENT [CONS] Routine Consulting Provider: SHIRLENE [facility] Reason for Consult: epistaxis Call Completed: Yes - Patient Status Disposition: Home Health Service Condition: Good Functional capacity at discharge: uses cane/walker Overall status at discharge: patient is progressing back to baseline - Discharge Instructions Follow Up With: Vincenzo Reyes DO [Partnered Physician] - (Please call ENT office for followup after discharge if needed for continued nose bleeds. ) Ana Wadsworth CNP [Advanced Practice Nurse] - 10/30/16 9:30 am Vic Bernal MD [Partnered Physician] - 10/23/16 10:00 am (New Consult Appt) Additional Instructions: Continue to use Bactroban ointment in front of your nose three times daily after discharge for a total of one month. Follow up with PCP to have sutures removed on 10/23 by PCP Patient declined INR clinic and prefers to have PCP to dose warfarin. Blood sugars were uncontrolled during hospitalization. PCP to adjust diabetic medications in outpatient. Patient sent home on increased hospitalization dose of 40 mg in AM and 35 mg in PM. Continue outpatient infusion of daptomycin for 2 weeks and follow up with ID during that time. - Diet and Activity Activity: as per physical therapy Diet: diabetic diet Hospital course: Ms. Graham is a 61 year old female presented from the ED with chief complaint of fever related to cellulitis of right lower leg with history of atrial fibrillation, COPD, CAD, diabetes, and GERD, hyperlipidemia, hypertension , ND, RA, thyroid disease, and TIA. Patient's fever when taken at the [facility] was 102.5 F. She has a history of non-healing leg wounds and is followed by Dr. Song. Patient in ED meet sepsis criteria based on her WBC of 2.5, temperature of 102.5 F, and HR of 98. IV levaquin and IV vancomycin were administered in the ED. Blood cultures x2 and Timed lactic acids were ordered. IV 0.9 NS 500 mL bolus and 0.9 NS 100mL/HR ordered. Blood cultures positive for VRE bacteremia, Non-healing ulcer on lower right leg positive for pseudomonas. ID and podiatry was consulted and patient was started on Cefepime and Daptomycin. CK levels were checked on a weekly basis. KEM on 10/[address] abd/pelvis negative for source. Blood Cx on 10/11 showed 2x negative. No source was identified. Patient will follow up with ID for daptomycin and cefepime was discontinued upon discharge. thrombosis was found in Right common femoral Vein on LE arterial duplex in which Heparin was started and bridged to Warfarin. She developed epistaxis most likely due to O2 and anti-coagulation. ENT was consulted and placed a piece of Surgicel on each side of her septum over the raw areas to prevent bleeding. Non-healing site of biopsy was sutured with 2 nylon 5. - Time Spent with Patient Total time spent providing and/or coordinating discharge services: - Constitutional Vitals: Temp Pulse Resp BP Pulse Ox 97.4 F L 81 18 132/60 95 10/16/16 07:20 10/16/16 07:20 10/16/16 07:20 10/16/16 07:20 10/16/16 07:20 General appearance: Present: cooperative, A&O X 3, pleasant, no acute distress, obese, answers questions appropriately - Respiratory Respiratory exam: Present: CTAB. Absent: accessory muscle use, rales, rhonchi, wheezes - Cardiovascular Cardiovascular exam: Present: RRR, +S1, +S2. Absent: diastolic murmur, gallop, rubs, systolic murmur - GI/Abdominal GI/Abdominal exam: Present: normal bowel sounds, soft, no peritoneal signs. Absent: distended, tenderness - Neurological Exam Neurological exam: Present: alert, oriented X3 - Psychiatric Psychiatric exam: Present: normal affect, normal mood <Adal Smith - Last Filed: 10/16/16 15:55> Date of Encounter: 10/16/16 - Discharge Diagnosis (1) DVT (deep venous thrombosis) Status: Acute Qualifiers: DVT location: lower extremity Affected thrombotic vein of extremity: femoral Chronicity: acute Laterality: left Qualified Code(s): I82.412 - Acute embolism and thrombosis of left femoral vein (2) Epistaxis Status: Resolved (3) Non-healing ulcer of foot Status: Acute Qualifiers: Laterality: right Non-pressure ulcer stage: with fat layer exposed Qualified Code(s): L97.512 - Non-pressure chronic ulcer of other part of right foot with fat layer exposed (4) Open wound, hand Status: Acute Qualifiers: Qualified Code(s): S61.409A - Unspecified open wound of unspecified hand, initial encounter (5) Sepsis Status: Acute Qualifiers: Sepsis type: Streptococcus, other Qualified Code(s): A40.8 - Other streptococcal sepsis (6) VRE bacteremia Status: Acute (7) ANCA-associated vasculitis Status: Chronic (8) Chronic kidney disease, stage 3 Status: Chronic (9) Diabetes mellitus type 2, uncontrolled Status: Chronic Qualifiers: Diabetes mellitus complication status: with neurologic complications Diabetes mellitus complication detail: with unspecified neuropathy 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 Qualified Code(s): E11.40 - Type 2 diabetes mellitus with diabetic neuropathy, unspecified; E11.65 - Type 2 diabetes mellitus with hyperglycemia; Z79.4 - halfway (current) use of insulin (10) GERD (gastroesophageal reflux disease) Status: Chronic Qualifiers: Esophagitis presence: esophagitis presence not specified Qualified Code(s) : K21.9 - Gastro-esophageal reflux disease without esophagitis (11) Hyperlipidemia Status: Chronic Qualifiers: Hyperlipidemia type: pure hypercholesterolemia Qualified Code(s): E78.00 - Pure hypercholesterolemia, unspecified; E78.0 - Pure hypercholesterolemia (12) Hypertension Status: Chronic Qualifiers: Hypertension type: essential hypertension Qualified Code(s): I10 - Essential (primary) hypertension (13) Atrial fibrillation Status: Chronic Qualifiers: Atrial fibrillation type: chronic Qualified Code(s): I48.2 - Chronic atrial fibrillation (14) Coronary artery disease Status: Chronic Qualifiers: Coronary Disease-Associated Artery/Lesion type: bypass graft [place] vs. transplanted heart: [place] heart Associated angina: without angina Qualified Code(s): I25.810 - Atherosclerosis of coronary artery bypass graft(s) without angina pectoris (15) Hypothyroid Status: Chronic Qualifiers: Hypothyroidism type: acquired Qualified Code(s): E03.9 - Hypothyroidism, unspecified (16) Rheumatoid arthritis Status: Chronic Qualifiers: Rheumatoid arthritis location: unspecified site Rheumatoid factor presence : unspecified presence Qualified Code(s): M06.9 - Rheumatoid arthritis, unspecified (17) Tobacco abuse Status: Chronic Date of admission: 10/08/16 09:41 Primary care physician: Jakob Chen MD Consults: 10/08/16 09:52 Consult to Nutrition [CONS] Routine Comment: Consulting Provider: NUTRITION Reason for Dietary Consult: MST Score Consult to Die Storage Clerk [CONS] Routine Reason for SW Consult: from ECF Consult to Wound Care [CONS] Routine Reason for Consult: venous ulcers to R leg and foot Call Completed: No 10/08/16 21:08 Consult to Buyer Grain [CONS] Routine Comment: Reason for Consult: Patient has hx of uncontrolled diabetes and non-healing wounds. Would benefit from diabetes education. 10/09/16 09:13 Consult to Infectious Diseases [CONS] Routine Consulting Provider: [facility] [place] Reason for Consult: Bacteremia positive for gram + cocci and enterococcus VRE Call Completed: Yes 10/09/16 09:15 Consult to Podiatry [CONS] Routine Consulting Provider: [facility] Reason for Consult: non-healing right lower leg extremity. Bacteremia. Call Completed: Yes 10/14/16 12:16 Consult to ENT [CONS] Routine Consulting Provider: ENT [facility] Reason for Consult: epistaxis Call Completed: Yes Hospital course: Ms. Graham is a 61 year old female - Time Spent with Patient Total time spent providing and/or coordinating discharge services: Greater than 30 minutes - Constitutional Vitals: Temp Pulse Resp BP Pulse Ox 97.4 F L 81 18 132/60 95 10/16/16 07:20 10/16/16 07:20 10/16/16 07:20 10/16/16 07:20 10/16/16 07:20 - Attending Attestation I examined this patient and my medical decision-making was reviewed with the Resident Physician on 10/16/16. I agree with the documented findings, disposition and treatment plan as described except to the extent set forth below. 61 F being managed for RLE infected wound with pseudomonas, VRE bacteremia, Sepsis secondary to chronic LE wound infection and bacteremia She also has a PMH of RA, Chronic steroid therapy, Afib, ANCA vasculitis She is also on thrice weekly bactrim due to chronic steroid therapy She has uncontrolled DM with poor compliance and difficulty managing with steroid therapy and ongoing infection The source of VRE bacteremia (recurrent) remains undetermined Her abdomen and pelvis imaging with po contrast done 10/10 showed perinephric stranding. Venous doppler showed a mobile L femoral vein thrombus, she was anticoagulated with heparin and coumadin Her YASSINE showed moderate disease No intervention per vascular Blood cultures from 10/11 preliminary negative X2 KEM was unremarkable for vegetations She has no new complains this morning and is medically stable for discharge Physical exam: VSS not in distress, CTAB, HS S1, S2 , Irregular, Abdomen is benign, L hand wound sutured, RLE wound dressing clean and dry Labs and Imaging reviewed-Stable hb, renal function stable, INR 1.8 Plan; Stable for discharge home(patient refused SNF), with IV infusion and labs set up Compliance with medications and appointments emphasized Rest of details as in resident physician's documentation
--- NOTE | 2016-10-16 10:36 | Physician Discharge Referral ---
Addendum entered and electronically signed by Orville Pryor DO 10/16/16 11:37: CK checked once a week due to daptomycin. Original Note: <Orville Pryor - Last Filed: 10/16/16 10:35> Home Health/Hosp Referral Info Transfer to: Home Health Provider in Charge Post Discharge: PCP - Diagnosis (1) VRE bacteremia Priority: Primary Status: Acute (2) Thrombosis Priority: Secondary Status: Acute (3) Sepsis Priority: Secondary Status: Acute (4) GERD (gastroesophageal reflux disease) Priority: Secondary Status: Chronic (5) Diabetes mellitus type 2, uncontrolled Priority: Secondary Status: Chronic (6) Hyperlipidemia Priority: Secondary Status: Chronic (7) Hypertension Priority: Secondary Status: Chronic (8) DVT prophylaxis Priority: Secondary Status: Acute (9) Chronic kidney disease, stage 3 Priority: Secondary Status: Chronic (10) Atrial fibrillation with RVR Priority: Secondary Status: Resolved (11) Open wound, hand Priority: Secondary Status: Acute (12) Non-healing ulcer of foot Priority: Secondary Status: Acute - Respiratory Orders Smoking Cessation: Smoking cessation has been advised. For more information, call the [place] Tobacco Quit Line at 2-584-OBIN-NOW. - Transfer Medications Prescriptions: Commode - Three In One [THREE IN ONE COMMODE] 1 each .ROUTE PRN PRN #1 each PRN Reason: Fatigue DAPTOmycin [Cubicin] 500 mg IV Q24H #14 vial Insulin LISPRO [HumaLOG] 15 units SQ TIDWM #2 vial Walker [WALKER] 1 each .ROUTE AD #1 each Home Medications: Cyclobenzaprine [Flexeril] 10 mg PO TID PRN 06/10/15 [History] Isosorbide DInitrate [Isosorbide Dinitrate] 60 mg PO BID 06/10/15 [History] Rosuvastatin [Crestor] 40 mg PO DAILY 06/10/15 [History] Levothyroxine Sodium [Levoxyl] 125 mcg PO DAILY 02/01/16 [History] Fenofibrate 54 mg PO QPM 03/20/16 [History] Omeprazole [PriLOSEC] 20 mg PO DAILY 03/26/16 [History] Sennosides/Docusate Sodium [Senna Plus] 1 tab PO BID PRN 07/02/16 [History] Ferrous Sulfate 325 mg PO BIDWM #60 tablet. 07/03/16 [Rx] Acetaminophen [Tylenol Arthritis] 650 mg PO Q4HR PRN 10/08/16 [History] Aspirin 81 mg PO DAILY 10/08/16 [History] Calcium Carbonate/Vitamin D3 [Calcium 600-Vit D3 200 Tablet] 1 tab PO DAILY 08/19 [History] Carvedilol [Coreg] 25 mg PO BID 10/08/16 [History] Cholecalciferol (Vitamin D3) [Vitamin D3] 1,000 unit PO DAILY 10/08/16 [History] Diltiazem CD (24hr) [Cardizem CD] 240 mg PO DAILY 10/08/16 [History] FLUoxetine HCl [Prozac] 20 mg PO DAILY 10/08/16 [History] Folic Acid 1 mg PO DAILY 10/08/16 [History] Furosemide [Lasix] 40 mg PO BID 10/08/16 [History] HYDROcodone/Acet 10/325 mg [[place] 10-325 mg] 1 tab PO Q6HR PRN 10/08/16 [History ] Ipratropium/Albuterol Neb [Duoneb] 3 ml IH Q6HR PRN 10/08/16 [History] Losartan [Cozaar] 25 mg PO BID 10/08/16 [History] Mupirocin [Bactroban Oint] 1 appl TP BID 10/08/16 [History] Nitroglycerin [Nitrostat] 0.4 mg SL AD PRN 10/08/16 [History] Polyethylene Glycol 3350 [MiraLAX] 17 gm PO DAILY PRN 10/08/16 [History] Potassium Chloride [Klor-Con 10] 10 meq PO DAILY 10/08/16 [History] Sulfamethoxazole/Trimeth DS [Bactrim Ds] 1 tab PO 3XW 10/08/16 [History] hydrOXYzine pamoate [HydrOXYzine Pamoate] 25 mg PO TID PRN 10/08/16 [History] predniSONE [PredniSONE] 30 mg PO DAILY 10/08/16 [History] Commode - Three In One [THREE IN ONE COMMODE] 1 each .ROUTE PRN PRN #1 each [Rx] DAPTOmycin [Cubicin] 500 mg IV Q24H #14 vial 10/16/16 [Rx] Insulin DETEMIR [Levemir] 35 unit SQ QPM 10/16/16 [Rx] Insulin DETEMIR [Levemir] 40 unit SQ DAILY 10/16/16 [Rx] Insulin LISPRO [HumaLOG] 15 units SQ TIDWM #2 vial 10/16/16 [Rx] Walker [WALKER] 1 each .ROUTE AD #1 each 10/16/16 [Rx] Allergies/Adverse Reactions: Allergies lisinopril Allergy (Verified 07/11/16 05:00) Swelling of Lip/Tongue/Throat Penicillins [PCN] Allergy (Verified 03/19/16 21:38) Hives Certification: Further, I certify that my clinical findings support that this patient is homebound (i.e. absences from home require considerable and taxing effort and are for medical reasons or roman catholic services or infrequently or short duration when for other reasons) because: Homebound Reason: Patient requires assistance of a person or device to safely leave home Attestation: My signature below is to certify that this patient is under my care and that I, or nurse practitioner, or a physician's assistant administrator working with me, has a face-to -face encounter with this patient. <Adal Smith T - Last Filed: 10/16/16 15:45> - Diagnosis (1) DVT (deep venous thrombosis) Status: Acute (2) Epistaxis Status: Resolved (3) Non-healing ulcer of foot Status: Acute (4) Open wound, hand Status: Acute (5) Sepsis Status: Acute (6) VRE bacteremia Status: Acute (7) ANCA-associated vasculitis Status: Chronic (8) Chronic kidney disease, stage 3 Status: Chronic (9) Diabetes mellitus type 2, uncontrolled Status: Chronic (10) GERD (gastroesophageal reflux disease) Status: Chronic (11) Hyperlipidemia Status: Chronic (12) Hypertension Status: Chronic (13) Atrial fibrillation Status: Chronic (14) Coronary artery disease Status: Chronic (15) Hypothyroid Status: Chronic (16) Rheumatoid arthritis Status: Chronic (17) Tobacco abuse Status: Chronic - Respiratory Orders Smoking Cessation: Smoking cessation has been advised. For more information, call the [place] Tobacco Quit Line at 2-190-LNOD-NOW. Certification: Further, I certify that my clinical findings support that this patient is homebound (i.e. absences from home require considerable and taxing effort and are for medical reasons or roman catholic services or infrequently or short duration when for other reasons) because: Attestation: My signature below is to certify that this patient is under my care and that I, or nurse practitioner, or a physician's assistant administrator working with me, has a face-to -face encounter with this patient. patient is for daily daptomycin infusion with monitoring of CK and Chemistry levels weekly Follow up with Infectious disease clinic She is to also have her INR checked routinely by her PCP
--- NOTE | 2016-10-16 11:23 | Infectious Disease Progress No ---
Date of Encounter: 10/16/16 Time of Encounter: 11:21 - Assessment and Plan (1) Sepsis Current Visit: No Status: Acute The patient had three SIRS criteria on admission. Likely secondary to bacteremia. Improved. Bandemia has resolved. Continues to do well clinically. Blood cultures drawn 10/08/16 and 10/09/16 are positive 2/2 sets for VRE. Repeat cultures on 10/10/16 are positive 2/2 sets for VRE. Additional blood cultures drawn 10/11/16 are NGTD currently. Qualifiers: Sepsis type: sepsis due to unspecified organism Qualified Code(s): A41.9 - Sepsis, unspecified organism (2) Bacteremia Current Visit: No Status: Acute Causative organism VRE. Source unclear. 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 The patient has no indwelling hardware and no evidence of septic emboli. Blood cultures drawn 10/08/16 are positive 2/2 sets for VRE. Repeat blood cultures drawn 10/09/16 are positive 2/2 sets. Additional blood cultures drawn 10/11/[address] KEM negative. CT of the abdomen and pelvis negative for source of bacteremia. Continue daptomycin 6mg/kg IV daily. Check CK level weekly while on Daptomycin. Duration of treatment depends on the clinical picture, likely 4-6 weeks given that we cannot identify the source of the bacteremia. Continue IV antibiotics until seen by infectious disease. Monitor renal function and dose-adjust antibiotics. Weekly CBC, BUN/creatinine, and CK levels every Sunday for the duration of treatment. Weekly powerglide care per protocol. Follow-up with infectious disease 10/30/16 at 0930. (3) Nonhealing surgical wound Current Visit: No Status: Acute Location: Right posteriomedial lower leg. Wound culture positive for PSEA, intermediately sensitive for levaquin. Clinically, does not appear infected. MRI completed at [facility] 10/05/16 shows no evidence of osteomyelitis. CT of the lower extremity completed 10/08/16 shows a small fluid collection adjacent to the posteromedial calf wound, concerning for abscess. No active drainage or purulence noted. Clinically, the wound does not appear infected and there is no evidence of surrounding cellulitis. Consult wound care team for recommendation. Continue Cefepime 2 grams IV Q12H (day 8). Okay to discontinue Cefepime when ready for discharge. Qualifiers: Encounter type: initial encounter Qualified Code(s): T81.89XA - Other complications of procedures, not elsewhere classified, initial encounter (4) Non-healing ulcer of foot Current Visit: Yes Status: Acute Location: Right posteriomedial lower leg. Wound culture positive for PSEA, intermediately sensitive to Levaquin. Clinically, does not appear infected. MRI completed at [facility] 10/05/16 shows no evidence of osteomyelitis. CT of the lower extremity completed 10/08/16 shows a small fluid collection adjacent to the posteromedial calf wound, concerning for abscess. No active drainage or purulence noted. Clinically, the wound does not appear infected and there is no evidence of surrounding cellulitis. Consult wound care team for recommendation. Continue Cefepime 2 grams IV Q12H (day 8). Okay to discontinue cefepime when ready for discharge. Qualifiers: Laterality: right Non-pressure ulcer stage: with fat layer exposed Qualified Code(s): L97.512 - Non-pressure chronic ulcer of other part of right foot with fat layer exposed (5) Renal insufficiency Current Visit: No Status: Resolved Chronic. Diagnosed on previous admission. Improved. Continue to trend. Dose-adjust antibiotics and avoid nephrotoxins as able. (6) Atrial fibrillation with RVR Current Visit: Yes Status: Resolved Likely secondary to sepsis. Management per the primary team. (7) Pancytopenia Current Visit: Yes Status: Acute Likely secondary to recent Cytoxan use, potentially worsened by sepsis. WBC and platelets back to normal. Continue to monitor closely. 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 Previously on Cytoxan, but currently on hold due to leukopenia. Consult Rheumatology for recommendations re: prednisone use given the patient' s acute illness. Continue Bactrim DS 1 tab PO 3x/week for PCP prophylaxis as previously prescribed by [facility]. 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 Currently on high dose steroids (prednisone 30mg daily). (9) Anemia Current Visit: No Status: Acute FOBT positive. Further workup and management per the primary team. Qualifiers: Anemia type: unspecified type Qualified Code(s): D64.9 - Anemia, unspecified (10) Coronary artery disease Current Visit: Yes Status: Chronic Qualifiers: Coronary Disease-Associated Artery/Lesion type: bypass graft [place] vs. transplanted heart: [place] heart Associated angina: without angina Qualified Code(s): I25.810 - Atherosclerosis of coronary artery bypass graft(s) without angina pectoris (11) Diabetes mellitus type 2, uncontrolled Current Visit: Yes Status: Chronic Qualifiers: Diabetes mellitus complication status: with neurologic complications Diabetes mellitus complication detail: with unspecified neuropathy Diabetes mellitus jail insulin use: with jail use Qualified Code(s): E11.40 - Type 2 diabetes mellitus with diabetic neuropathy, unspecified; E11.65 - Type 2 diabetes mellitus with hyperglycemia; Z79.4 - jail (current) use of insulin (12) Epistaxis Current Visit: Yes Status: Resolved Secondary to prolonged O2 use. ENT consulted. - Subjective Interval history: Patient seen and examined. Weekend notes reviewed. Patient had epistaxis requiring ENT consult. No acute events noted overnight. Patient resting quietly in bed. Denies fevers, chills, or rigors. Denies chest pain, shortness of breath , or cough. Denies nausea, vomiting, or diarrhea. Denies abdominal pain or urinary complaints. Denies oral thrush or skin lesions. States her appetite is good. Complains of pain in the right lower extremity. Infect Dis PN-Objective Data - Labs CBC & Chem 7: 10/16/16 04:50 10/16/16 04:50 Labs: Laboratory Results - last 24 hr 10/15/16 10/15/16 10/15/16 08:01 11:31 16:13 WBC RBC Hgb Hct MCV MCH MCHC RDW Plt Count MPV PT INR Sodium Potassium Chloride Carbon Dioxide BUN Creatinine Est GFR ( Amer) Est GFR (Non-Af Amer) BUN/Creatinine Ratio Glucose POC Glucose 274 H 375 H 429 H* Calculated Osmolality Calcium 10/15/16 10/16/16 10/16/16 16:14 04:50 04:50 WBC 4.6 RBC 3.65 L Hgb 10.6 L Hct 33.5 L MCV 91.8 MCH 29.0 MCHC 31.6 RDW 17.1 H Plt Count 172 MPV 11.3 PT 20.3 H INR 1.8 Sodium Potassium Chloride Carbon Dioxide BUN Creatinine Est GFR ( Amer) Est GFR (Non-Af Amer) BUN/Creatinine Ratio Glucose POC Glucose 436 H* Calculated Osmolality Calcium 10/16/16 04:50 WBC RBC Hgb Hct MCV MCH MCHC RDW Plt Count MPV PT INR Sodium 133 L Potassium 4.0 Chloride 88 L Carbon Dioxide 33 H BUN 47 H Creatinine 1.51 H Est GFR ( Amer) 42 L Est GFR (Non-Af Amer) 35 L BUN/Creatinine Ratio 31 H Glucose 258 H POC Glucose Calculated Osmolality 297 Calcium 11.3 H Cultures: Cultures 10/11/16 13:36 Blood Culture - Preliminary Peripheral Venipuncture No growth. 10/11/16 13:31 Blood Culture - Preliminary Peripheral Venipuncture No growth. 10/09/16 16:06 Blood Culture - Final Peripheral Venipuncture Vancomycin Resistant Enterococcus faecalis 10/09/16 16:06 Blood Culture - Final Peripheral Venipuncture Vancomycin Resistant Enterococcus faecalis 10/08/16 10:00 Wound Culture - Final Left Foot Pseudomonas aeruginosa 10/08/16 10:00 Wound Culture - Final Right Leg Pseudomonas aeruginosa Serology 10/10/16 10/09/16 Range/Units 08:06 16:06 Stool Occult Blood Positive A (Negative) A. baumannii (PCR) Not Detected (Not Detect) Jenna albicans (PCR) Not Detected (Not Detect) C. glabrata (PCR) Not Detected (Not Detect) C. krusei (PCR) Not Detected (Not Detect) C. parapsilosis (PCR) Not Detected (Not Detect) C. tropicalis (PCR) Not Detected (Not Detect) Enterobacteriac sp PCR Not Detected (Not Detect) E. cloacae complex PCR Not Detected (Not Detect) Enterococcus sp PCR DETECTED A (Not Detect) E. coli (PCR) Not Detected (Not Detect) H. influenzae (PCR) Not Detected (Not Detect) Klebsiella oxytoca PCR Not Detected (Not Detect) Klebsiella pneumoniae Not Detected (Not Detect) List. monocytogenes PCR Not Detected (Not Detect) N. meningitidis (PCR) Not Detected (Not Detect) Proteus species (PCR) Not Detected (Not Detect) Serratia marcescens PCR Not Detected (Not Detect) Staphylococcus sp PCR Not Detected (Not Detect) Staph aureus (PCR) Not Detected (Not Detect) mecA-Methicil Res Gene Not Detected (Not Detect) Streptococcus sp PCR Not Detected (Not Detect) Group A Strep DNA Not Detected (Not Detect) Group B Strep (PCR) Not Detected (Not Detect) Strep pneumoniae (PCR) Not Detected (Not Detect) P. aeruginosa (PCR) Not Detected (Not Detect) Peter/B-Vanco Res Genes DETECTED A (Not Detect) KPC (blaKPC) Detect PCR Not Detected (Not Detect) Exam - Constitutional Vitals: Temp Pulse Resp BP Pulse Ox 97.4 F L 81 18 132/60 95 10/16/16 07:20 10/16/16 07:20 10/16/16 07:20 10/16/16 07:20 10/16/16 07:20 General appearance: cooperative, no acute distress, obese - Head Head exam: Present: atraumatic, normal inspection, normocephalic - Eye Eye exam: Present: EOMI, normal appearance, PERRL Pupils: Present: normal accommodation Additional comments: No subconjunctival hemorrhage noted. - ENT ENT exam: Present: mucous membranes moist - Neck Neck exam: Present: normal inspection - Respiratory Respiratory exam: Present: CTAB. Absent: rales, respiratory distress, rhonchi, wheezes - Cardiovascular Cardiovascular exam: Present: RRR, +S1, +S2 - GI/Abdominal GI/Abdominal exam: Present: distended (Obese), normal bowel sounds, soft. Absent: tenderness - Extremities Exam Extremities exam: Present: tenderness (Right lower extremity). Absent: joint swelling, pedal edema Additional comments: Right lower extremity dressing clean, dry, and intact. No endocarditis stigmata noted. - Neurological Exam Neurological exam: Present: alert, oriented X3, no focal deficits - Psychiatric Psychiatric exam: Present: normal affect, normal mood - Skin Skin exam: Present: dry, intact, normal color, warm - Additional findings Additional findings: EP IV noted to left upper extremity with transparent dressing clean, dry, and intact. Consult Discharge Plan - Plan Instructions: Cellulitis (DC), Epistaxis (DC) Additional Instructions: Continue to use Bactroban ointment in front of your nose three times daily after discharge for a total of one month. Follow up with PCP to have sutures removed on 10/23 by PCP Patient declined INR clinic and prefers to have PCP to dose warfarin. Blood sugars were uncontrolled during hospitalization. PCP to adjust diabetic medications in outpatient. Patient sent home on increased hospitalization dose of 40 mg in AM and 35 mg in PM. Continue outpatient infusion of daptomycin for 2 weeks and follow up with ID during that time. Referrals: Vincenzo Reyes, [Partnered Physician] - (Please call ENT office for followup after discharge if needed for continued nose bleeds. ) Vic Bernal MD [Partnered Physician] - 10/23/16 10:00 am (New Consult Appt) Ana Wadsworth CNP [Advanced Practice Nurse] - 10/30/16 9:30 am Prescriptions: Commode - Three In One [THREE IN ONE COMMODE] 1 each .ROUTE PRN PRN #1 each PRN Reason: Fatigue DAPTOmycin [Cubicin] 500 mg IV Q24H #14 vial Insulin LISPRO [HumaLOG] 15 units SQ TIDWM #2 vial Walker [WALKER] 1 each .ROUTE AD #1 each - Attending Attestation I examined this patient and my medical decision-making was reviewed with the Resident Physician. I agree with the documented findings, disposition and treatment plan as described except to the extent set forth below.
[2016-10-16] MEDS ORDERED: Insulin LISPRO 300 UNITS/3 ML VIAL SQ SCH (12:00)
[2016-10-16] MEDS: Cefepime HCl 2,000 MG in D5% in Water (Mini-Bag+) 100 ML IVPB SCH (12:24)
[2016-10-16] MEDS: DAPTOmycin 500 MG in 0.9 % Sodium Chloride 100 ML IVPB SCH (14:26)
[2016-10-16] MEDS: Oxymetazoline Nasal SPRAY BOTTLE NS SCH (14:26)
[2016-10-16] MEDS: *HR* HYDROcodone/Acet 5/325 mg TABLET PO PRN (15:14)
[2016-10-16] MEDS ORDERED: *HR* Warfarin 3 MG TABLET PO ONE (18:00)
== END 2016-10-16 18:07 | disposition home health service (06) | DRG 853 ==
LOC: 2ANU 03:28 → EMEROO 03:28 → 2ANU 07:03 → SUATTDRO 09:41
PROVIDERS: ADMIT Hospitalist; ATTEND Internal Medicine